=== PATIENT | female | born 1980 | race Caucasian/White ===

== ENCOUNTER 2022-02-19 13:24 | Emergency (ER) | payer BC, SELFPAY ==
[2022-02-19 13:38] VITALS: BP 136/91; PULSE 98; RESP 18; TEMP 36.4; O2SAT 95; BMI 39.5
--- NOTE | 2022-02-19 14:01 | CRLHL7_ITS ---
For Patients: As a result of the Cures Act, medical imaging exams and procedure reports are released immediately into your electronic medical record. You may view this report before your referring provider. If you have questions, please contact your health care provider. Indication: Shortness of breath Comparison: None available. Technique: PA and lateral views of the chest Findings: There is mild central bronchial thickening without dense consolidation, effusion or pneumothorax. The cardiomediastinal silhouette is within normal limits. The bony thorax is grossly intact. Impression: Mild central bronchial thickening without dense consolidation. Dictated by Griffin Childress MD @ 02/19/2022 2:57:29 PM (Electronically Signed)
--- OUTSIDE RECORDS SUMMARY | 2022-02-19 14:23 | XMS_ITS | Encounter Summary ---
:1980 Author Organization [place] Address [address] [place] [address] Care Team Providers Name Role Phone Nelda Peña APRN AUTO INSPECTOR Primary Care Provider [phone] Jose Lopez OD Unavailable Jillian Dubois APRN AUTO INSPECTOR Unavailable [phone] Nawaf Morocho MD Unavailable Lottie Cedillo PA-C Unavailable Azeem Lindsey APRN AUTO INSPECTOR Unavailable [phone] Jillian Dubois ELECTRICAL EXPERIMENTAL MECHANIC AUTO INSPECTOR Unavailable [phone] Teodoro Joaquin MD Unavailable [phone] Nelda Peña APRN AUTO INSPECTOR Unavailable [phone] Reason for Visit Reason Onset Date Comments Refill Request 02/15/2022 insulin glargine (LA NTUS PEN) 100 UNIT/ML pen Encounter Details Date Type Department Care Team Description 02/15/2022 Refjose M [facility] Lottie Cedillo Refil l Request (insulin Endocrinology Clinic ERR[facility] glargine (LANTUS PEN) [address] 100 UNIT/ML pen) [address] [place], [place] [id number] [place] [address] [phone] Social History Tobacco Use Types Packs/Day Years Used Date Smoking Tobacco: Never Smokeless Tobacco: Never Alcohol Use Standard Drinks/Week Comments Yes 0 (1 standard drink = 0.6 oz pure alcoho l) Intimate Partner Violence Answer Date Recorded Within the last year, have you been afraid of your partner o r No 10/25/2020 ex-partner? Within the last year, have you been humiliated or emotionall y No 10/25/2020 abused in other ways by your partner or ex-partner? Within the last year, have you been kicked, hit, slapped, or No 10/25/2020 otherwise physically hurt by your partner or ex-partner? Within the last year, have you been raped or forced to have any No 10/25/2020 kind of sexual activity by your partner or ex-partner? Sex Assigned at Date Recorded Female 05/08/2020 12:57 PM HOME MAKER COVID-19 Exposure Response Date Recorded In the last 10 days, have you been in contact with No / Unsu re 02/08/2022 6:05 PM HOME MAKER someone who was confirmed or suspected to have Coronavirus/COVID-19? documented as of this encounter Miscellaneous Notes Telephone Encounter - Inocencia Marcano LPN - 02/15/2022 9:26 AM CST insulin glargine (LANTUS PEN) 100 UNIT/ML pen Last Written Prescription Date: 12/26/20 Last Fill Quantity: 45 ml, # refills: 3 Last Office Visit : 12/26/20 Future Office visit: 04/23/22 Routing refill request to provider for review/approval because: Insulin - refilled per clinic MAKER documented in this encounter Plan of Treatment Upcoming Encounters Date Type Specialty Care Team Description 04/04/2022 Office Visit child care center administrator Kaela Dubois APRN [facility] [address] [place] [address] (Wo rk) 04/23/2022 Virtual Visit Endocrinology Lottie Cedillo PA-C [address] [place] [address] (Wo rk) documented as of this encounter Visit Diagnoses Diagnosis Type 1 diabetes mellitus with complicati ons (H) documented in this encounter Additional Health Concerns Assessment Noted Time PHQ-9 Depression Total Score: 7 10/02/2021 2:13 PM CDT documented as of this encounter Care Teams Loop Tender Relationship Specialty Start Date End Date Nelda Peña, PCP - General Nurse Practitioner 02/02/18 ELECTRICAL EXPERIMENTAL MECHANIC [address] [place] [address] Jose Lopez, SHELL ARRIOLA Optometry 03/04/18 Jillian Dubois Nurse Practitioner Nurse Practitioner 08/17/18 SHAW Infante [facility] [address] [place] [address] Nawaf Morocho MD Dermatology 04/24/20 [facility] 516 [facility] [address] [place] [address] Lottie Cedillo, Assigned Endocrinology 06/14/20 PA-C Provider [address] [place] [address] Azeem Lindsey, Assigned Behavioral 06/18/20 [facility] Health Provider [address] [place] [address] Jillian Dubois Assigned OBGYN Provider 01/28/21 SHAW Infante AUTO INSPECTOR [facility] [address] [place] [address] Liz Kirkland, Assigned Surgical 10/27/21 MD Teodoro Provider [address] [place] [address] Nelda Peña, Assigned PCP 10/06/21 ELECTRICAL EXPERIMENTAL MECHANIC AUTO INSPECTOR [address] [facility] [address] [place] [address] documented as of this encounter
--- OUTSIDE RECORDS SUMMARY | 2022-02-19 14:23 | XMS_ITS | Encounter Summary ---
:1980 Author Organization [place] Address [address] [place] [address] Care Team Providers Name Role Phone Nelda Peña APRN CLOTHES MARKER Primary Care Provider [phone] Jose Lopez OD Unavailable Jillian Dubois APRN CLOTHES MARKER Unavailable [phone] Nawaf Morocho MD Unavailable Lottie Cedillo PA-C Unavailable Azeem Lindsey APRN CLOTHES MARKER Unavailable [phone] Jillian Dubois BOTTLED BEVERAGE INSPECTOR CLOTHES MARKER Unavailable [phone] Nawaf Morocho MD Unavailable Nelda Peña APRN CLOTHES MARKER Unavailable [phone] Reason for Visit Reason Comments Cyst Back of neck Keflex x 4 days not helping with swelling or pain Encounter Details Date Type Department Care Team Description 10/19/2021 Office Visit [employer] Gael Mccloud M D Infected sebaceous cyst (Primary Dx); Urgent Care [address] Neck muscle spasm [id number] [place] [address] [address] [place], [place] [id number] [phone] Social History Tobacco Use Types Packs/Day Years [...] at Date Recorded Female 05/08/2020 12:57 PM CARPET INSPECTOR COVID-19 Exposure Response Date Recorded In the last 10 days, have you been in contact with No / Unsu re 10/19/2021 11:50 AM CDT someone who was confirmed or suspected to have Coronavirus/COVID-19? documented as of this encounter Last Filed Vital Signs Vital Sign Reading Time Taken Comments Blood Pressure 130/80 10/19/2021 12:19 PM CDT Pulse 98 10/19/2021 12:19 PM CDT Temperature 37.6 ??C (99.6 ??F) 10/19/2021 12:19 PM CDT Respiratory Rate 16 10/19/2021 12:19 PM CDT Oxygen Saturation 98% 10/19/2021 12:19 PM CDT Inhaled Oxygen Concentration - - Weight 105.5 kg (232 lb 8 oz) 10/19/2021 12:19 PM CDT Height - - Body Mass Index 42.52 10/02/2021 1:29 PM CDT documented in this encounter Progress Notes Gael Mccloud MD - 10/19/2021 12:05 PM CDT SUBJECTIVE: Chief Complaint Patient presents with ??? Cyst Back of neck Keflex x 4 days not helping with swelling or pain Tamiko Méndez is a 40 year old female who presents with a chief complaint of cyst on back of neck. Seen in on 10/15 for neck abscess, RX Omnicef given. Patient is taking Advil and not helping. Patient states that is painful to move headache. Had similar neck infection before, did get this drained,was lower on neck. Was given Bactrim for treatment. Past Medical History: Diagnosis Date ??? Acne cystica ??? Adenomyosis ??? Asthma ??? Depression ??? Dysmenorrhea ??? H/O seasonal allergies ??? Type I (juvenile type) diabetes mellitus without mention of complication, not stated as uncontrolled 1982 age 10 months Current Outpatient Medications Medication Sig Dispense Refill ??? augmented betamethasone dipropionate (DIPROLENE-AF) 0.05 % external cream Apply topically 2 times daily Do not apply to face, groin, or armpits 50 g 1 ??? Calcium Carb-Cholecalciferol (CALCIUM 500+D PO) (Patient not taking: Reported on 10/15/2021) ??? cefdinir (OMNICEF) 300 MG capsule Take 1 capsule (300 mg) by mouth 2 times daily for 7 days 14 capsule 0 ??? cetirizine (ZYRTEC) 10 MG tablet Take 10 mg by mouth daily ??? citalopram (CELEXA) 40 MG tablet Take 1 tablet (40 mg) by mouth daily 90 tablet 3 ??? clindamycin (CLEOCIN T) 1 % external lotion Apply once daily to face 60 mL 11 ??? Continuous Blood Gluc Enterprise Analyst (FREESTYLE LEATHA 14 DAY READER) MARY 1 Application 5 times daily 1 Device 1 ??? Continuous Blood Gluc Sensor (FREESTYLE LEATHA 14 DAY SENSOR) MISC Change every 14 days. For additional refills, please schedule a follow-up appointment at [phone] 2 each 1 ??? Digestive Enzymes (PAPAYA AND ENZYMES PO) ??? fluconazole (DIFLUCAN) 150 MG tablet (Patient not taking: No sig reported) ??? Injection Device for insulin (INPEN [id number]) MARY 2 each 4 times daily (before meals and nightly) 2 each 0 ??? Injection Device for insulin (INPEN [id number]) MARY 1 each 4 times daily (before meals and nightly) 2 each 0 ??? insulin aspart (FIASP FLEXTOUCH) 100 UNIT/ML pen-injector Inject 1-15 Units Subcutaneous 4 timesdaily MDD 55 units 30 mL 4 ??? insulin glargine (LANTUS PEN) 100 UNIT/ML pen Inject 46 Units Subcutaneous At Bedtime 45 mL 3 ??? insulin lispro (HUMALOG VIAL) 100 UNIT/ML vial Inject 20 Units Subcutaneous 3 times daily (before meals) for 90 days 54 mL 0 ??? insulin syringe 31G X 5/16 0.5 ML MISC 1 Application 4 times daily (before meals and nightly) 90 each 3 ??? lisinopril (ZESTRIL) 5 MG tablet Take 1 tablet (5 mg) by mouth daily 90 tablet 3 ??? multivitamin w/minerals (THERA-VIT-M) tablet Take 1 tablet by mouth daily (Patient not taking: No sig reported) ??? norethindrone (AYGESTIN) 5 MG tablet Take 1 tablet (5 mg) by mouth daily 90 tablet 3 ??? OMEPRAZOLE PO ??? propranolol (INDERAL) 10 MG tablet Take 1-2 tablets (10-20 mg) by mouth 2 times daily as needed (anxiety/agitation) 120 tablet 0 ??? spironolactone (ALDACTONE) 100 MG tablet Take 1 tablet (100 mg) by mouth daily 30 tablet 11 Social History Tobacco Use ??? Smoking status: Never Smoker ??? Smokeless tobacco: Never Used Substance Use Topics ??? Alcohol use: Yes ROS: Review of systems negative except as stated above. EXAM: BP 130/80 (BP Location: Right arm, Patient Position: Chair, Cuff Size: Adult Large) Pulse 98 Temp 99.6 ??F (37.6 ??C) (Oral) Resp 16 Wt 105.5 kg (232 lb 8 oz) SpO2 98% No BMI 42.52 kg/m?? GENERAL APPEARANCE: healthy, alert and no distress NECK: bilateral muscle tightness trapezius, old healed linear excision SKIN: base of scalp with firm, indurated cyst, no fluctuance with mild tenderness and redness PSYCH: alert, affect bright ASSESSMENT/PLAN: (L72.3, L08.9) Infected sebaceous cyst (primary encounter diagnosis) Comment: base of scalp Plan: sulfamethoxazole-trimethoprim (BACTRIM DS) 800-160 MG tablet (M62.838) Neck muscle spasm Plan: cyclobenzaprine (FLEXERIL) 5 MG tablet Okay to stop Omnicef in 1-2 days, new RX Bactrim DS given for treatment for infected cyst. Discussedthat due to firmness that most likely is in tissue and I&D would not be appropriate. Reviewed that obtaining cyst removal by dermatology recommended when infection clears. Okay to continue with tylenol, ibuprofen. RX flexeril given to help with neck muscle spasm. Follow up with primary provider if no improvement of symptoms in 1 week Gael Mccloud MD October 19, 2021 12:59 PM documented in this encounter Plan of Treatment Upcoming Encounters Date Type Specialty Care Team Description 04/04/2022 Office Visit radio sportscaster Kaela Dubois APRN [facility] [address] [place], [place] [address] (Wo rk) 04/23/2022 Virtual Visit Endocrinology Lottie Cedillo PA-C [address] [place] [address] (Wo rk) documented as of this encounter Visit Diagnoses Diagnosis Infected sebaceous cyst - Primary Sebaceous cyst Neck muscle spasm Spasm of muscle documented in this encounter Additional Health Concerns Assessment Noted Time PHQ-9 Depression Total Score: 7 10/02/2021 2:13 PM CDT documented as of this encounter Care Teams Roller Maker Relationship Specialty Start Date End Date Nelda Peña, PCP - General Nurse Practitioner 02/02/18 BOTTLED BEVERAGE INSPECTOR CLOTHES MARKER 420 [facility] [address] [place], [place] [address] Jose Lopez OD MD Optometry 03/04/18 Jillian Dubois Nurse Practitioner Nurse Practitioner 08/17/18 SHAW Infante [facility] [address] [place] [address] Nawaf Morocho MD Dermatology 04/24/[address] [id number] Lottie Cedillo, Assigned Endocrinology 06/14/20 PA-C Provider [address] [place], [place] [phone] Azeem Lindsey, Assigned Behavioral 06/18/20 BOTTLED BEVERAGE INSPECTOR [facility] Provider [address] [place], [place] [phone] Jillian Dubois Assigned OBGYN Provider 01/28/21 SHAW Infante [facility] [address] [place] [id number] Nawaf Morocho, Assigned Surgical 04/29/[address] [id number] Nelda Peña, Assigned PCP 10/06/21 BOTTLED BEVERAGE INSPECTOR [address] [place], [place] [address] documented as of this encounter
--- OUTSIDE RECORDS SUMMARY | 2022-02-19 14:23 | XMS_ITS | Encounter Summary ---
:1980 Author Organization [place] Address [facility] [place] [address] Care Team Providers Name Role Phone Nelda Peña APRN BLEACH SUPERVISOR Primary Care Provider Jose Lopez OD Unavailable Jillian Dubois APRN BLEACH SUPERVISOR Unavailable [phone] Nawaf Morocho MD Unavailable Lottie Cedillo-C Unavailable Azeem Lindsey APRN BLEACH SUPERVISOR Unavailable [phone] Jillian Dubois APRN BLEACH SUPERVISOR Unavailable [phone] Teodoro Joaquin MD Unavailable [phone] Nelda Peña APRN BLEACH SUPERVISOR Unavailable [phone] Reason for Visit Reason Onset Date Comments Appointment 02/19/2022 Encounter Details Date Type Department Care Team Description 02/19/2022 Telephone [facility] Nelda Peña APRN Appointment Internal Medicine BLEACH SUPERVISOR [address] [place] [address] [place], [place] [address] [phone] Social History Tobacco Use Types Packs/Day Years [...] at Date Recorded Female 05/08/2020 12:57 PM MINING ANALYST COVID-19 Exposure Response Date Recorded In the last 10 days, have you been in contact with No / Unsu re 02/08/2022 6:05 PM MINING ANALYST someone who was confirmed or suspected to have Coronavirus/COVID-19? documented as of this encounter Miscellaneous Notes Telephone Encounter - Tamiko Ordonez - 02/19/2022 9:45 AM CST Reason for Call: Appointment Request Patient requesting this type of appt: Follow-up bronchitis and uri wants chest xray Requested provider: any Reason patient unable to be scheduled: Not within requested timeframe When does patient want to be seen/preferred time: Same day Comments: patient wondering if she could be worked in today Could we send this information to you in RocketOn or would you prefer to receive a phone call?: Patient would like to be contacted via RocketOn Call taken on 02/19/2022 at 9:46 AM by Tamiko Ordonez NG ANALYST documented in this encounter Plan of Treatment Upcoming Encounters Date Type Specialty Care Team Description 04/04/2022 Office Visit oem sales manager Kaela Dubois APRN [facility] [address] [place] [address] (Wo rk) 04/23/2022 Virtual Visit Endocrinology Lottie Cedillo , PA-C [address] [place] [address] (Wo rk) documented as of this encounter Visit Diagnoses Not on filedocumented in this encounter Additional Health Concerns Assessment Noted Time PHQ-9 Depression Total Score: 7 10/02/2021 2:13 PM CDT documented as of this encounter Care Teams Machine Programmer Relationship Specialty Start Date End Date Nelda Peña, PCP - General Nurse Practitioner 02/02/18 SAP ABAP DEVELOPER [address] [place] [address] Jose Lopez, SHELL ARRIOLA Optometry 03/04/18 Jillian Dubois Nurse Practitioner Nurse Practitioner 08/17/18 SHAW Infante [facility] [address] [place] [address] Nawaf Morocho MD Dermatology 04/24/20 [facility] 516 [facility] EMERGENC[facility] DEPARTMENT [address] [place] [address] Lottie Cedillo, Assigned Endocrinology 06/14/20 PA-C Provider [address] [place] [address] Azeem Lindsey, Assigned Behavioral 06/18/20 [facility] Health Provider [address] [place] [address] Jillian Dubois Assigned OBGYN Provider 01/28/21 SHAW Infante BLEACH SUPERVISOR [facility] [address] [place] [address] Liz Kirkland, Assigned Surgical 10/27/21 MD Teodoro Provider [address] [facility] [place] [address] Nelda Peña, Assigned PCP 10/06/21 SAP ABAP DEVELOPER BLEACH SUPERVISOR [address] [facility] [address] [place] [address] documented as of this encounter
--- OUTSIDE RECORDS SUMMARY | 2022-02-19 14:23 | XMS_ITS | Encounter Summary ---
:1980 Author Organization [place] Address [facility] [place] [address] Care Team Providers Name Role Phone Nelda Peña APRN [facility] Primary Care Provider [phone] Jose Lopez OD Unavailable Jillian Dubois APRN ENGINEERING DESIGN MANAGER Unavailable [phone] Nawaf Morocho MD Unavailable Lottie Cedillo-Robert Unavailable Azeem Lindsey APRN ENGINEERING DESIGN MANAGER Unavailable [phone] Jillian Dubois APPEALS OFFICER ENGINEERING DESIGN MANAGER Unavailable [phone] Teodoro Joaquin MD Unavailable [phone] Nelda Peña APRN ENGINEERING DESIGN MANAGER Unavailable [phone] Encounter Details Date Type Department Care Team Description 01/19/2022 Travel Social History Tobacco Use Types Packs/Day Years [...] at Date Recorded Female 05/08/2020 12:57 PM TOPOGRAPHICAL DRAFTER COVID-19 Exposure Response Date Recorded In the last 10 days, have you been in contact No / Unsure 01/19/2022 11:41 AM CDT with someone who was confirmed or suspected to have Coronavirus/COVID-19? documented as of this encounter Plan of Treatment Upcoming Encounters Date Type Specialty Care Team Description 04/04/2022 Office Visit chief airport guide Kaela Dubois APRN ENGINEERING DESIGN MANAGER [facility] [address] [place], [place] [address] (Wo rk) 04/23/2022 Virtual Visit Endocrinology Lottie Cedillo , LUIS CARLOSC [address] [place], [place] [address] (Wo rk) documented as of this encounter Visit Diagnoses Not on filedocumented in this encounter Additional Health Concerns Assessment Noted Time PHQ-9 Depression Total Score: 7 10/02/2021 2:13 PM CDT documented as of this encounter Care Teams Vamp Creaser Relationship Specialty Start Date End Date Nelda Peña, PCP - General Nurse Practitioner 02/02/18 APPEALS OFFICER ENGINEERING DESIGN MANAGER 420 [facility] [address] [place] [address] Jose Lopez OD MD Optometry 03/04/18 Jillian Dubois Nurse Practitioner Nurse Practitioner 08/17/18 SHAW Infante [facility] [address] [place] [id number] Nawaf Morocho MD Dermatology 04/24/20 [facility] 516 [facility] 98 [place], [place] [address] Lottie Cedillo, Assigned Endocrinology 06/14/20 PA-C Provider [address] [place], [place] [phone] Azeem Lindsey, Assigned Behavioral 06/18/20 [facility] Provider [address] [place], [place] [phone] Jillian Dubois Assigned OBGYN Provider 01/28/21 SHAW Infante [facility] [address] [place] [phone] Liz Kirkland, Assigned Surgical 10/27/21 MD Teodoro Provider [address] [place] [address] Nelda Peña, Assigned PCP 10/06/[address] [place], [place] [address] documented as of this encounter
--- OUTSIDE RECORDS SUMMARY | 2022-02-19 14:23 | XMS_ITS | Encounter Summary ---
:1980 Author Organization [place] Address [facility] [place] [address] Care Team Providers Name Role Phone Nelda Peña APRN TOOL ROOM MACHINIST Primary Care Provider Jose Lopez OD Unavailable Jillian Dubois APRN TOOL ROOM MACHINIST Unavailable [phone] Nawaf Morocho MD Unavailable Lottie Cedillo-C Unavailable Azeem Lindsey APRN TOOL ROOM MACHINIST Unavailable [phone] Jillian Dubois APRN TOOL ROOM MACHINIST Unavailable [phone] Nawaf Morocho MD Unavailable Nelda Peña APRN TOOL ROOM MACHINIST Unavailable [phone] Reason for Visit Reason Onset Date Comments Appointment 10/26/2021 Checkout 04/25/21 Encounter Details Date Type Department Care Team Description 10/26/2021 Telephone [facility] Nawaf Morocho ent (Checkout Dermatology Clinic MD Jay 04/25/21) [address] Floor [address] [place] [address] [phone] (Maryjane pa) Social History Tobacco Use Types Packs/Day Years [...] at Date Recorded Female 05/08/2020 12:57 PM CLOTH WEAVER COVID-19 Exposure Response Date Recorded In the last 10 days, have you been in contact with No / Unsu re 10/19/2021 11:50 AM CDT someone who was confirmed or suspected to have Coronavirus/COVID-19? documented as of this encounter Miscellaneous Notes Telephone Encounter - Erna Samson - 10/26/2021 11:22 AM CDT 2nd attempted call to patient to schedule follow up in the Dermatology Clinic per ??Rashawn??last visit on 04/25/21 checkout comment dispositions. Left message with clinic number. Schedule follow up in [address] Morocho. documented in this encounter Plan of Treatment Upcoming Encounters Date Type Specialty Care Team Description 04/04/2022 Office Visit gear hobber set up operator Kaela Dubois APRN [facility] [address] [place] [address] (Maryjane pa) 04/23/2022 Virtual Visit Endocrinology Lottie Cedillo , ERROL [address] [place], [place] [phone] (Wo rk) documented as of this encounter Visit Diagnoses Not on filedocumented in this encounter Additional Health Concerns Assessment Noted Time PHQ-9 Depression Total Score: 7 10/02/2021 2:13 PM CDT documented as of this encounter Care Teams Marketing Summer Intern Relationship Specialty Start Date End Date Nelda Peña, PCP - General Nurse Practitioner 02/02/18 [facility] 420 [facility] [address] [place] [address] Jose Lopez, OD MD Optometry 03/04/18 Jillian Dubois Nurse Practitioner Nurse Practitioner 08/17/18 SHAW Infante [facility] [address] [place] [address] Nawaf Morocho MD Dermatology 04/24/20 [facility] 516 [facility] EMERGENC[facility] DEPARTMENT [address] [place], [place] [address] Lottie Cedillo, Assigned Endocrinology 06/14/20 PA-C Provider [address] [place] [address] Azeem Lindsey, Assigned Behavioral 06/18/20 [facility] Health Provider [address] [place], [place] [address] Jillian Dubois Assigned OBGYN Provider 01/28/21 SHAW Infante [facility] [address] [place] [address] Nawaf Morocho, Assigned Surgical 04/29/21 MD Provider [facility] 516 [facility] [address] [place] [address] Nelda Peña, Assigned PCP 10/06/21 STRIPPING MACHINE OPERATOR TOOL ROOM MACHINIST 420 [facility] [address] [place] [address] documented as of this encounter
--- OUTSIDE RECORDS SUMMARY | 2022-02-19 14:23 | XMS_ITS | Encounter Summary ---
:1980 Author Organization [place] Address [facility] [place] [address] Care Team Providers Name Role Phone Nelda Peña APRN [facility] ATTENDANT Primary Care Provider [phone] Jose Lopez OD Unavailable Jillian Dubois APRN [facility] ATTENDANT Unavailable [phone] Nawaf Morocho MD Unavailable Lottie Cedillo-Robert Unavailable Azeem Lindsey APRN [facility] ATTENDANT Unavailable [phone] Jillian Dubois APRN [facility] ATTENDANT Unavailable [phone] Teodoro Joaquin MD Unavailable [phone] Nelda Peña APRN [facility] ATTENDANT Unavailable [phone] Reason for Visit Reason Comments Medication Refill FREESTYLE LEATHA SENSOR 14D K IT Encounter Details Date Type Department Care Team Description 11/30/2021 Refill [facility] Nelda Peña, [facility] ication Refill Clinic Internal COMMUNICATION EQUIPMENT MECHANIC [facility] ATTENDANT (FREESTYLE LEATHA SENSOR [address] 14D KIT) 909 [facility] [address] [place] [address] [place], [place] [phone] (Wo rk) [address] [phone] Social History Tobacco Use Types Packs/Day Years [...] at Date Recorded Female 05/08/2020 12:57 PM PHARMACOLOGIST documented as of this encounter Miscellaneous Notes Telephone Encounter - Sarah Arauz RN - 12/05/2021 2:25 PM CDT VASQUEZ[employer] SENSOR 14D KIT Last Written Prescription Date: 10/02/2021 Last Fill Quantity: 2, # refills: 1 Last Office Visit : 10/02/2021 Future Office visit: None 2 each, 6 Refills sent to pharm for Pt care. Sarah Arauz RN Central Triage Red Flags/Med Refills documented in this encounter Plan of Treatment Upcoming Encounters Date Type Specialty Care Team Description 04/04/2022 Office Visit database consultant Kaela Dubois APRN [facility] [address] [place] [address] (Wo rk) 04/23/2022 Virtual Visit Endocrinology Lottie Cedillo PA-C [address] [place], [place] [address] (Wo rk) documented as of this encounter Visit Diagnoses Diagnosis Type 1 diabetes mellitus with complicati ons (H) documented in this encounter Additional Health Concerns Assessment Noted Time PHQ-9 Depression Total Score: 7 10/02/2021 2:13 PM CDT documented as of this encounter Care Teams [employer] Teacher Relationship Specialty Start Date End Date Nelda Peña, PCP - General Nurse Practitioner 02/02/[address] [place], [place] [address] Jose Lopez OD MD Optometry 03/04/18 Jillian Dubois Nurse Practitioner Nurse Practitioner 08/17/18 SHAW Infante [facility] [address] [place] [phone] Nawaf Morocho MD Dermatology 04/24/20 [facility] 516 [facility] 98 [place], [place] [address] Lottie Cedillo, Assigned Endocrinology 06/14/20 PANael Provider [address] [place], [place] [phone] Azeem Lindsey, Assigned Behavioral 06/18/20 [facility] Health Provider [address] [place], [place] [address] Jillian Dubois Assigned OBGYN Provider 01/28/21 SHAW Infante [facility] [address] [place] [address] [id number] Liz Kirkland, Assigned Surgical 10/27/21 MD Teodoro Provider 909 [facility] [place] [address] Nelda Peña, Assigned PCP 10/06/21 COMMUNICATION EQUIPMENT MECHANIC [facility] ATTENDANT 420 [facility] 741 [place] [address] documented as of this encounter
--- OUTSIDE RECORDS SUMMARY | 2022-02-19 14:23 | XMS_ITS | Encounter Summary ---
:1980 Author Organization [place] Address [facility] [place] [address] Care Team Providers Name Role Phone Nelda Peña APRN [facility] Primary Care Provider [phone] Jose Lopez OD Unavailable Jillian Dubois APRN BINDERY CUTTER OPERATOR Unavailable [phone] Nawaf Morocho MD Unavailable Lottie Cedillo-Robert Unavailable Azeem Lindsey APRN BINDERY CUTTER OPERATOR Unavailable [phone] Jillian Dubois SUPERVISOR CONCRETE STONE FABRICATING BINDERY CUTTER OPERATOR Unavailable [phone] Teodoro Joaquin MD Unavailable [phone] Nelda Peña APRN BINDERY CUTTER OPERATOR Unavailable [phone] Encounter Details Date Type Department Care Team Description 02/08/2022 Travel Social History Tobacco Use Types Packs/Day [...] at Date Recorded Female 05/08/2020 12:57 PM GLUING MACHINE OPERATOR COVID-19 Exposure Response Date Recorded In the last 10 days, have you been in contact with No / Unsu re 02/08/2022 6:05 PM GLUING MACHINE OPERATOR someone who was confirmed or suspected to have Coronavirus/COVID-19? documented as of this encounter Plan of Treatment Upcoming Encounters Date Type Specialty Care Team Description 04/04/2022 Office Visit elder counselor Kaela Dubois, SUPERVISOR CONCRETE STONE FABRICATING BINDERY CUTTER OPERATOR [facility] [address] [place], [place] [phone] (Wo rk) 04/23/2022 Virtual Visit Endocrinology Lottie Cedillo , ERROL 9[address] [place], [place] [address] (Wo rk) documented as of this encounter Visit Diagnoses Not on filedocumented in this encounter Additional Health Concerns Infection Onset Date Last Indicated Resolved Time Rule Out COVID-19 02/08/2022 02/08/2022 02/10/2022 1:3 0 PM GLUING MACHINE OPERATOR Assessment Noted Time PHQ-9 Depression Total Score: 7 10/02/2021 2:13 PM CDT documented as of this encounter Care Teams Flame Cutting Supervisor Relationship Specialty Start Date End Date Nelda Peña, PCP - General Nurse Practitioner 02/02/18 SUPERVISOR CONCRETE STONE FABRICATING BINDERY CUTTER OPERATOR 420 [facility] 741 [place] [address] Jose Lopez OD MD Optometry 03/04/18 Jillian Dubois Nurse Practitioner Nurse Practitioner 08/17/18 SHAW Infante [facility] [address] [place] [phone] Nawaf Morocho MD Dermatology 04/24/20 [facility] 516 [facility] 98 [place] [address] Lottie Cedillo, Assigned Endocrinology 06/14/20 PA-C Provider [address] [place] [address] Azeem Lindsey, Assigned Behavioral 06/18/20 [facility] Provider [address] [place] [address] Jillian Dubois Assigned OBGYN Provider 01/28/21 SHAW Infante [facility] [address] [place] [address] Liz Kirkland, Assigned Surgical 10/27/21 MD Teodoro Provider [address] [place] [address] Nelda Peña, Assigned PCP 10/06/21 SUPERVISOR CONCRETE STONE FABRICATING [address] [place] [address] documented as of this encounter
--- OUTSIDE RECORDS SUMMARY | 2022-02-19 14:23 | XMS_ITS | Encounter Summary ---
:1980 Author Organization [place] Address [address] [place] [address] Care Team Providers Name Role Phone Nelda Peña APRN SPOUT LINER HELPER Primary Care Provider [phone] Jose Lopez OD Unavailable Jillian Dubois APRN SPOUT LINER HELPER Unavailable [phone] Nawaf Morocho MD Unavailable Lottie Cedillo-C Unavailable Azeem Lindsey APRN SPOUT LINER HELPER Unavailable [phone] Jillian Dubois MAIL DISTRIBUTION CLERK SPOUT LINER HELPER Unavailable [phone] Teodoro Joaquin MD Unavailable [phone] Nelda Peña APRN SPOUT LINER HELPER Unavailable [phone] Reason for Visit Reason Comments Urgent Care Cough, and sore throat which started 01/19/22, pt was diagnosed bronchitis 01/19/22 and the cough still there. Encounter Details Date Type Department Care Team Description 02/08/[address] [facility] hSae Rayo (Primary Dx); Urgent Care Thi Roy NP Acute cough; [address] Throat pain; [place], [place], [place] Mild intermit tent asthma with acute exacerbation; [id number] Type 1 diabetes mellitus with complicati ons (H) [phone] Social History Tobacco Use Types Packs/Day Years [...] at Date Recorded Female 05/08/2020 12:57 PM EMR SPECIALIST COVID-19 Exposure Response Date Recorded In the last 10 days, have you been in contact with No / Unsu re 02/08/2022 6:05 PM EMR SPECIALIST someone who was confirmed or suspected to have Coronavirus/COVID-19? documented as of this encounter Last Filed Vital Signs Vital Sign Reading Time Taken Comments Blood Pressure 120/81 02/08/2022 6:29 PM EMR SPECIALIST Pulse 89 02/08/2022 6:29 PM EMR SPECIALIST Temperature 36.7 ??C (98.1 ??F) 02/08/2022 6:29 PM EMR SPECIALIST Respiratory Rate - - Oxygen Saturation 97% 02/08/2022 6:29 PM EMR SPECIALIST Inhaled Oxygen Concentration - - Weight - - Height - - Body Mass Index - - documented in this encounter Progress Notes Shae Rayo CIVIL ENGINEER - 02/08/2022 6:05 PM CST Chief Complaint Patient presents with ??? Urgent Care Cough, and sore throat which started 01/19/22, pt was diagnosed bronchitis 01/19/22 and the cough still there. SUBJECTIVE: Tamiko Méndez is a 41 year old female presenting with cough mucus sinus pressure congestion postnasal drip sore throat lymph nodes fatigue for a month. She completed albuterol Augmentin codeine cough syrup and prednisone recently with a lingering symptoms. Declines any chest pain severe shortness of breath hemoptysis. She does have asthma and diabetes. Past Medical History: Diagnosis Date ??? Acne cystica ??? Adenomyosis ??? Asthma ??? Depression ??? Dysmenorrhea ??? H/O seasonal allergies ??? Type I (juvenile type) diabetes mellitus without mention of complication, not stated as uncontrolled 1982 age 10 months albuterol (PROAIR HFA/PROVENTIL HFA/VENTOLIN HFA) 108 (90 Base) MCG/ACT inhaler, Inhale 2 puffs intothe lungs every 6 hours augmented betamethasone dipropionate (DIPROLENE-AF) 0.05 % external cream, Apply topically 2 times daily Do not apply to face, groin, or armpits Calcium Carb-Cholecalciferol (CALCIUM 500+D PO), cetirizine (ZYRTEC) 10 MG tablet, Take 10 mg by mouth daily citalopram (CELEXA) 40 MG tablet, Take 1 tablet (40 mg) by mouth daily clindamycin (CLEOCIN T) 1 % external lotion, Apply once daily to face Continuous Blood Gluc [employer] Vendor (FREESTYLE LEATHA 14 DAY READER) MARY, 1 Application 5 times daily Continuous Blood Gluc Sensor (FREESTYLE LEATHA 14 DAY SENSOR) [facility], Change every 14 days. cyclobenzaprine (FLEXERIL) 5 MG tablet, Take 1-2 tablets (5-10 mg) by mouth 3 times daily as needed for muscle spasms Digestive Enzymes (PAPAYA AND ENZYMES PO), fluconazole (DIFLUCAN) 150 MG tablet, guaiFENesin-codeine (ROBITUSSIN AC) 100-10 MG/5ML solution, Take 5-10 mLs by mouth nightly as neededfor cough Injection Device for insulin (INPEN [id number]) MARY, 2 each 4 times daily (before meals and nightly) Injection Device for insulin (INPEN [id number]) MARY, 1 each 4 times daily (before meals and nightly) insulin aspart (FIASP FLEXTOUCH) 100 UNIT/ML pen-injector, Inject 1-15 Units Subcutaneous 4 times daily MDD 55 units insulin glargine (LANTUS PEN) 100 UNIT/ML pen, Inject 46 Units Subcutaneous At Bedtime insulin lispro (HUMALOG VIAL) 100 UNIT/ML vial, Inject 20 Units Subcutaneous 3 times daily (before meals) insulin syringe 31G X 5/16 0.5 ML MISC, 1 Application 4 times daily (before meals and nightly) lisinopril (ZESTRIL) 5 MG tablet, Take 1 tablet (5 mg) by mouth daily multivitamin w/minerals (THERA-VIT-M) tablet, Take 1 tablet by mouth daily norethindrone (AYGESTIN) 5 MG tablet, Take 1 tablet (5 mg) by mouth daily OMEPRAZOLE PO, predniSONE (DELTASONE) 20 MG tablet, Take 1 tablet (20 mg) by mouth 2 times daily propranolol (INDERAL) 10 MG tablet, Take 1-2 tablets (10-20 mg) by mouth 2 times daily as needed (anxiety/agitation) spironolactone (ALDACTONE) 100 MG tablet, Take 1 tablet (100 mg) by mouth daily LORazepam (ATIVAN) tablet 1 mg Social History Tobacco Use ??? Smoking status: Never ??? Smokeless tobacco: Never Substance Use Topics ??? Alcohol use: Yes Allergies Allergen Reactions ? ? Hay Fever & [A.R.M.] Stuffiness, watery eyes ??? No Clinical Screening - See Comments Unknown Other reaction(s): *Unknown Review of Systems All systems negative except for those listed above in HPI. OBJECTIVE: BP 120/81 (BP Location: Right arm, Patient Position: Sitting, Cuff Size: Adult Large) Pulse 89 Temp 98.1 ??F (36.7 ??C) (Oral) SpO2 97% Physical Exam Vitals reviewed. Constitutional: General: She is not in acute distress. Appearance: Normal appearance. She is well-developed and well-nourished. She is ill-appearing. She is not toxic-appearing or diaphoretic. HENT: Head: Normocephalic and atraumatic. Right Ear: Tympanic membrane and ear canal normal. Left Ear: Tympanic membrane and ear canal normal. Nose: Congestion and rhinorrhea present. Mouth/Throat: Pharynx: No oropharyngeal exudate or posterior oropharyngeal erythema. Eyes: Extraocular Movements: EOM normal. Conjunctiva/sclera: Conjunctivae normal. Pupils: Pupils are equal, round, and reactive to light. Cardiovascular: Rate and Rhythm: Normal rate. Pulses: Normal pulses and intact distal pulses. Pulmonary: Effort: Respiratory distress present. Breath sounds: Normal breath sounds. No stridor. No wheezing, rhonchi or rales. Chest: Chest wall: No tenderness. Musculoskeletal: General: Normal range of motion. Cervical back: Normal range of motion and neck supple. Lymphadenopathy: Cervical: Cervical adenopathy present. Skin: General: Skin is warm. Capillary Refill: Capillary refill takes less than 2 seconds. Findings: No rash. Neurological: General: No focal deficit present. Mental Status: She is alert and oriented to person, place, and time. Psychiatric: Mood and Affect: Mood normal. Behavior: Behavior normal. Results for orders placed or performed in visit on 02/08/22 Streptococcus A Rapid Screen w/Reflex to PCR Status: Normal Specimen: Throat; Swab Result Value Ref Range Group A Strep antigen Negative Negative ASSESSMENT: ICD-10-CM 1. Sinobronchitis J32.9 doxycycline hyclate (VIBRAMYCIN) 100 MG capsule J40 benzonatate (TESSALON) 200 MG capsule 2. Acute cough R05.1 Symptomatic; Unknown COVID-19 Virus (Coronavirus) by PCR Nose 3. Throat pain R07.0 Symptomatic; Unknown COVID-19 Virus (Coronavirus) by PCR Nose Streptococcus A Rapid Screen w/Reflex to PCR Group A Streptococcus PCR Throat Swab 4. Mild intermittent asthma with acute exacerbation J45.21 5. 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) E10.8 PLAN: Doxy and Tessalon Perles for sinobronchitis lingering Lungs clear except for wheeze vitals stable Home albuterol Offered CBC x-ray but patient prefers empiric treatment at this time Rest! Your body needs more rest to heal. Drink plenty of fluids (warm fluids like tea or soup are soothing and reduce cough) Sit in the bathroom with a hot shower running and breathe in the steam. Honey may soothe your sore throat and help manage your cough- may take straight or in warm water with lemon juice. Monitor blood sugars while sick, would hold on repeat prednisone as this can increase sugars Avoid smoke (cigarettes, bonfires, fireplace, wood burning stoves). Take Tylenol or an NSAID such as ibuprofen or naproxen as needed for pain. Delsym (dextromethorphan polistirex) is an over the counter cough medication that lasts 12 hours. Mucinex or Robitussin (guiafenesin) thin mucus and may help it to loosen more quickly Good handwashing is the best way to prevent spread of germs Present to emergency room if you develop trouble breathing, swallowing or cough- up blood. Follow up with your primary care provider if symptoms worsen or fail to improve as expected. Follow up with primary care provider with any problems, questions or concerns or if symptoms worsen or fail to improve. Patient agreed to plan and verbalized understanding. JOLENE العراقي [facility] SPECIALIST documented in this encounter Plan of Treatment Upcoming Encounters Date Type Specialty Care Team Description 04/04/2022 Office Visit office administrative assistant aKela Dubois APRN [facility] [address] [place] [address] (Wo rk) 04/23/2022 Virtual Visit Endocrinology Lottie Cedillo PA-C [address] [place], [place] [address] (Wo rk) documented as of this encounter Procedures Procedure Name Priority Date/Time Associated Comments Diagnosis COVID-19 VIRUS Routine 02/08/2022 6:34 PM Acute cough Results for this (CORONAVIRUS) BY PCR EMR SPECIALIST Throat pain procedu re are in the results section. STREPTOCOCCUS A RAPID Routine 02/08/2022 6:34 PM Throat pain Results for this SCREEN W REFELX TO PCR EMR SPECIALIST proce dure are in the results section. GROUP A STREPTOCOCCUS Routine 02/08/2022 6:34 PM Throat pain Results for this PCR THROAT SWAB EMR SPECIALIST procedure ar e in the results section. documented in this encounter Results Group A Streptococcus PCR Throat Swab (02/08/2022 6:34 PM EMR SPECIALIST) Patholo gist Method Time Signature Group A strep Not Detected Not Detected 02/09/2022 [facility] by PCR 7:28 PM EMR SPECIALIST LABORATORY Specimen Anatomical Collection Method Collection Time Receive d Time (Source) Location / / Volume Laterality Swab STRUCTURE OF Non-blood 02/08/2022 6:34 PM 2 6:46 ANTERIOR PORTION Collection / EMR SPECIALIST PM EMR SPECIALIST OF NECK / Unknown Unknown Narrative [facility] - 02/09/2022 7:[address] The Xpert Xpress Strep A test, performed on the [employer]?? Instrument Systems, is a rapid, qualitative in vitro diagnostic t est for the detection of Streptococcus pyogenes (Group A ? - hemolytic Streptococcus, Strep A) in thr oat swab specimens from patients with signs and symptoms of pharyngitis. The Xpert X press Strep A test can be used as an aid in the diagnosis of Group A Streptococcal p haryngitis. The assay is not intended to monitor treatment for Group A Streptococ cus infections. The Xpert Xpress Strep A test utilizes an automated real-time polymera se chain reaction (PCR) to detect Streptococcus pyogenes DNA. Rachele ALDRIDGEC LAB - MICRO GENERAL ORDERABL ES Performing Organization Address City/State/ZIP Code Phon e Number [facility] LABORATORY [facility] [place] [id number] Diag. Lab [address] [facility], Room [address]297 Streptococcus A Rapid Screen w/Reflex to PCR (02/08/2022 6:34 PM EMR SPECIALIST) Analysis Performed At Patho logist Time Signature Group A Strep Negative Negative 02/08/2022 [facility] antigen 6:46 PM EMR SPECIALIST Specimen Anatomical Collection Method Collection Time Receive d Time (Source) Location / / Volume Laterality Swab STRUCTURE OF Non-blood 02/08/2022 6:34 PM 2 6:39 ANTERIOR PORTION Collection / EMR SPECIALIST PM EMR SPECIALIST OF NECK / Unknown Unknown Rachele Burris PA-C LAB - MICRO GENERAL ORDERABL ES Performing Organization Address City/State/ZIP Code Phon e Number [place] [address] Lab [address] [facility] Lab (no room number, 1st floor of clinic) [place] [address], Clinic - [facility] [address] [facility] Lab (no room number, 1st floor of clinic) Symptomatic; Unknown COVID-19 Virus (Coronavirus) by PCR Nose (02/08/2022 6:34 PM EMR SPECIALIST) Analysis Performed At Patho logist Time Signature SARS CoV2 PCR Negative Negative 02/10/2022 [facility] 1:30 PM EMR SPECIALIST LABORATORY Comment: NEGATIVE: SARS-CoV-2 (COVID-19) RNA not detected, presumed negative. Specimen Anatomical Collection Method Collection Time Receive d Time (Source) Location / / Volume Laterality Swab NASAL STRUCTURE / Non-blood 02/08/2022 6:34 PM 01/29 6:39 Unknown Collection / EMR SPECIALIST PM EMR SPECIALIST Unknown Narrative [facility] - 02/10/2022 1:[address] Testing was performed using the Aptima SARS-CoV-2 Assay on the [employer] Instrument System. Additional in formation about this Emergency Use Authorization (EUA) assay can be found via the Lab Guide. This test should be ordered for t he detection of SARS-CoV-2 in individuals who meet SARS-CoV-2 clinical and/or epidemiological criteria. Test performance is unknown in asymptomatic patients. This test is for in vitro diagnostic use unde r the FDA EUA for laboratories certified under CLIA to per form high complexity testing. This test has not been FDA cleared or ap proved. A negative result does not rule out the presence of PCR in hibitors in the specimen or target RNA in concentration below the li sampson of detection for the assay. The possibility of a false negati ve should be considered if the patient's recent exposure or clinica l presentation suggests COVID-19. This test was validated by the [facility]. This lab oratory is certified under the Clinical Laboratory Improvement Amen dments of 1987 (CLIA-88) as qualified to perform high complexity lab oratory testing. Rachele Burris PA-C LAB - MICRO GENERAL ORDERABL ES Performing Organization Address City/State/ZIP Code Phon e Number [facility] [place] [address] Diag. Lab [address] [facility], Room [address] documented in this encounter Visit Diagnoses Diagnosis Sinobronchitis - Primary Unspecified sinusitis (chronic) Acute cough Throat pain Mild intermittent asthma with acute exac erbation Unspecified asthma, with exacerbation Type 1 diabetes mellitus with complicati ons (H) documented in this encounter Additional Health Concerns Assessment Noted Time PHQ-9 Depression Total Score: 7 10/02/2021 2:13 PM CDT documented as of this encounter Care Teams Press Reader Relationship Specialty Start Date End Date Nelda Peña, PCP - General Nurse Practitioner 02/02/[address] [place] [address] Jose Lopez, SHELL ARRI[place]A Optometry 03/04/18 Jillian Dubois Nurse Practitioner Nurse Practitioner 08/17/18 SHAW Infante [facility] [address] [place] [phone] Nawaf Morocho MD Dermatology 04/24/20 [facility] 516 [facility] 98 [place], [place] [phone] Lottie Cedillo, Assigned Endocrinology 06/14/20 PA-C Provider [address] [place] [address] Azeem Lindsey, Assigned Behavioral 06/18/20 [facility] Provider [address] [place] [address] Jillian Dubois Assigned OBGYN Provider 01/28/21 SHAW Infante [facility] [address] [place] [phone] Liz Kirkland, Assigned Surgical 10/27/21 MD Teodoro Provider [address] [place] [address] Nelda Peña, Assigned PCP 10/06/21 MAIL DISTRIBUTION CLERK SPOUT LINER HELPER 420 [facility] 741 [place] [address] documented as of this encounter
--- OUTSIDE RECORDS SUMMARY | 2022-02-19 14:23 | XMS_ITS | Encounter Summary ---
:1980 Author Organization [place] Address [address] [place] [address] Care Team Providers Name Role Phone Nelda Peña APRN METAL WEATHER STRIPPER Primary Care Provider [phone] Jose Lopez OD Unavailable Jillian Dubois APRN METAL WEATHER STRIPPER Unavailable [phone] Nawaf Morocho MD Unavailable Lottie Cedillo PA-C Unavailable Azeem Lindsey APRN METAL WEATHER STRIPPER Unavailable [phone] Jillian Dubois CRIME LABORATORY ANALYST METAL WEATHER STRIPPER Unavailable [phone] Teodoro Joaquin MD Unavailable [phone] Nelda Peña APRN METAL WEATHER STRIPPER Unavailable [phone] Reason for Visit Reason Onset Date Comments Medication Request 02/14/2022 Encounter Details Date Type Department Care Team Description 02/14/2022 Telephone [facility] Lottie Cedillo, Medic ation Request Endocrinology Clinic [facility] [address] [place], [place] [id number] [phone] Social History Tobacco Use Types Packs/Day Years [...] at Date Recorded Female 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 documented as of this encounter Miscellaneous Notes Telephone Encounter - Gayle Tovar - 02/14/2022 10:13 AM CST RTC 04/23/2022 with Lottie Cedillo. [facility] Phone Message May a detailed message be left on voicemail: yes Reason for Call: Medication Refill Request Has the patient contacted the pharmacy for the refill? Yes Name of medication being requested: Lantus Provider who prescribed the medication: Nguyen Pharmacy: [facility] in [place] Date medication is needed: MORIS patient states she is almost out of Lantus. Patient scheduled next available appt with Dr. Cedillo in 03/2022. Patient also wondering if labs can be ordered Action Taken: Other: [facility] Travel Screening: Not Applicable DESIGNER documented in this encounter Plan of Treatment Upcoming Encounters Date Type Specialty Care Team Description 04/04/2022 Office Visit trust officer Kaela Dubois APRN COUNT INCLUDES [facility] [address] [place] [address] (Wo rk) 04/23/2022 Virtual Visit Endocrinology Lottie Cedillo PA-C [address] [place] [address] (Wo rk) Scheduled Orders Name Type Priority Associated Diagnoses Order S chedule Hemoglobin A1c Lab Routine Type 1 diabetes mellitus E xpected: 02/15/2022 with complications (H) (Appr oximate), Expires: 2022 Comprehensive metabolic Lab Routine Type 1 diabetes m ellitus Expected: 02/15/2022 panel with complications (H) (Appr oximate), Expires: 2022 Albumin Random Urine Lab Routine Type 1 diabetes latisha itus Expected: 02/15/2022 Quantitative with Creat with complication s (H) (Approximate), Ratio Expires: 2022 Lipid panel reflex to Lab Routine Type 1 diabetes katherine litus Expected: 02/15/2022 direct LDL Fasting with complications (H) (Approximate), Expires: 2022 documented as of this encounter Visit Diagnoses Diagnosis Type 1 diabetes mellitus with complicati ons (H) documented in this encounter Additional Health Concerns Assessment Noted Time PHQ-9 Depression Total Score: 7 10/02/2021 2:13 PM CDT documented as of this encounter Care Teams Security Guard Supervisor Relationship Specialty Start Date End Date Nelda Peña PCP - General Nurse Practitioner 02/02/18 SHAW DIAZ [address] [facility] [address] [place] [address] Jose Lopez OD MD Optometry 03/04/18 Jillian Dubois Nurse Practitioner Nurse Practitioner 08/17/18 SHAW Infante COUNT INCLUDES [facility] [address] [place] [address] Nawaf Morocho MD Dermatology 04/24/20 [facility] 516 [facility] [address] [place] [address] Lottie Cedillo, Assigned Endocrinology 06/14/20 PA-C Provider [address] [place] [address] Azeem Lindsey, Assigned Behavioral 06/18/20 CRIME LABORATORY ANALYST [facility] Provider [address] [place] [address] Jillian Dubois Assigned OBGYN Provider 01/28/21 SHAW Infante [facility] [address] [place] [address] Liz Kirkland, Assigned Surgical 10/27/21 MD Teodoro Provider [address] [place] [address] Nelda Peña, Assigned PCP 10/06/21 CRIME LABORATORY ANALYST METAL WEATHER STRIPPER 420 [facility] [address] [place] [address] documented as of this encounter
--- OUTSIDE RECORDS SUMMARY | 2022-02-19 14:23 | XMS_ITS | Encounter Summary ---
:1980 Author Organization [place] Address [address] [facility] [place] [address] Care Team Providers Name Role Phone Nelda Peña APRN WRAPPER LEAF INSPECTOR Primary Care Provider [phone] Jose Lopez OD Unavailable Jillian Dubois APRN WRAPPER LEAF INSPECTOR Unavailable [phone] Nawaf Morocho MD Unavailable Lottie Cedillo-Robert Unavailable Azeem Lindsey APRN WRAPPER LEAF INSPECTOR Unavailable [phone] Jillian Dubois APRN WRAPPER LEAF INSPECTOR Unavailable [phone] Teodoro Joaquin MD Unavailable [phone] Nelda Peña APRN WRAPPER LEAF INSPECTOR Unavailable [phone] Reason for Visit Reason Onset Date Comments Refill Request 01/29/2022 Encounter Details Date Type Department Care Team Description 01/29/2022 Telephone [facility] Tammy Dubois Refill Request [facility] [place] SHAW Infante WRAPPER LEAF INSPECTOR [address] [facility] TS dg [facility] [address] [place] [address] [place], [place] [phone] Social History Tobacco Use Types Packs/Day Years [...] at Date Recorded Female 05/08/2020 12:57 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 documented as of this encounter Miscellaneous Notes Telephone Encounter - Marybeth Poon RN - 01/30/2022 10:11 AM CDT 90 day supply of control sent over for this patient. Her annual is scheduled for 04-04-21 with Jillian Dubois. Will let the patient know via Pi[employer]. Telephone Encounter - Janel Whaley - 01/29/2022 2:12 PM CDT [facility] Phone Message May a detailed message be left on voicemail: yes Reason for Call: Medication Refill Request Has the patient contacted the pharmacy for the refill? Yes Name of medication being requested: norethindrone (AYGESTIN) 5 MG tablet Provider who prescribed the medication: Jillian Dubois Pharmacy: [facility] [address] [place] [address] [place] [address] Date medication is needed: Richard Patient called and scheduled her Annual Exam for 04/04, next available was out until Next Year. Patient wanting to know if she can get a refill on her control until her appointment with [facility]. Please contact patient if she can or can't get a refill. Thank you Action Taken: Other: [facility] Travel Screening: Not Applicable documented in this encounter Plan of Treatment Upcoming Encounters Date Type Specialty Care Team Description 04/04/2022 Office Visit marine engineer cpvec Kaela Dubois APRN CNP [facility] [address] [place] [address] (Wo rk) 04/23/2022 Virtual Visit Endocrinology Lottie Cedillo PA-C [address] [place], [place] [address] (Wo rk) documented as of this encounter Visit Diagnoses Diagnosis Abnormal uterine bleeding (AUB) documented in this encounter Additional Health Concerns Assessment Noted Time PHQ-9 Depression Total Score: 7 10/02/2021 2:13 PM CDT documented as of this encounter Care Teams Chemical Production Engineer Relationship Specialty Start Date End Date Nelda Peña PCP - General Nurse Practitioner 02/02/18 SHAW WRAPPER LEAF INSPECTOR [address] [facility] [address] [place] [address] Jose Lopez OD MD Optometry 03/04/18 Jillian Dubois Nurse Practitioner Nurse Practitioner 08/17/18 SHAW Infante WRAPPER LEAF INSPECTOR [facility] [address] [place], [place] [address] [place] [address] Nawaf Morocho MD Dermatology 04/24/20 [facility] 516 [facility] 98 [place], [place] [phone] Lottie Cedillo, Assigned Endocrinology 06/14/20 PA-C Provider [address] [place] [address] Azeem Lindsey, Assigned Behavioral 06/18/20 PREVENTATIVE MAINTENANCE TECHNICIAN Critical access hospital Provider [address] [place] [address] Jillian Dubois Assigned OBGYN Provider 01/28/21 SHAW Infante [facility] [address] [place] [address] Liz Kirkland, Assigned Surgical 10/27/21 MD Teodoro Provider [address] [place] [address] Nelda Peña, Assigned PCP 10/06/21 PREVENTATIVE MAINTENANCE TECHNICIAN WRAPPER LEAF INSPECTOR 420 [facility] [address] [place], [place] [phone] documented as of this encounter
--- OUTSIDE RECORDS SUMMARY | 2022-02-19 14:23 | XMS_ITS | Encounter Summary ---
:1980 Author Organization [place] Address [facility] [place] [address] Care Team Providers Name Role Phone Nelda Peña APRN SHAMPOO ASSISTANT Primary Care Provider [phone] Jose Lopez OD Unavailable Jillian Dubois APRN SHAMPOO ASSISTANT Unavailable [phone] Nawaf Morocho MD Unavailable Lottie Cedillo-Robert Unavailable Azeem Lindsey APRN SHAMPOO ASSISTANT Unavailable [phone] Jillian Dubois APRN SHAMPOO ASSISTANT Unavailable [phone] Nawaf Morocho MD Unavailable Nelda Peña APRN SHAMPOO ASSISTANT Unavailable [phone] Encounter Details Date Type Department Care Team Description 10/15/2021 Travel Social History Tobacco Use Types Packs/Day [...] at Date Recorded Female 05/08/2020 12:57 PM REVERSER COVID-19 Exposure Response Date Recorded In the last 10 days, have you been in contact with No / Unsu re 10/15/2021 8:52 AM CDT someone who was confirmed or suspected to have Coronavirus/COVID-19? documented as of this encounter Plan of Treatment Upcoming Encounters Date Type Specialty Care Team Description 04/04/2022 Office Visit banbury operator Kaela Dubois APRN SHAMPOO ASSISTANT [facility] [address] [place], [place] [address] (Wo rk) 04/23/2022 Virtual Visit Endocrinology Lottie Cedillo PA-C [address] [place], [place] [address] (Wo rk) documented as of this encounter Visit Diagnoses Not on filedocumented in this encounter Additional Health Concerns Assessment Noted Time PHQ-9 Depression Total Score: 7 10/02/2021 2:13 PM CDT documented as of this encounter Care Teams Zigzag Machine Operator Relationship Specialty Start Date End Date Nelda Peña, PCP - General Nurse Practitioner 02/02/18 STEWARD/STEWARDESS SECOND CLASS SHAMPOO ASSISTANT [address] [facility] [address] [place] [address] Jose Lopez OD MD Optometry 03/04/18 Jillian Dubois Nurse Practitioner Nurse Practitioner 08/17/18 SHAW Infante [facility] [address] [place] [id number] Nawaf Morocho, Dermatology 04/24/[address] [address] Lottie Cedillo, Assigned Endocrinology 06/14/20 PA-C Provider [address] [place], [place] [phone] Azeem Lindsey, Assigned Behavioral 06/18/20 [facility] Provider [address] [place], [place] [phone] Jillian Dubois Assigned OBGYN Provider 01/28/21 SHAW Infante [facility] [address] [place] [phone] Nawaf Morocho, Assigned Surgical 04/29/[address] [id number] Nelda Peña, Assigned PCP 10/06/[address] [place], [place] [phone] documented as of this encounter
--- OUTSIDE RECORDS SUMMARY | 2022-02-19 14:23 | XMS_ITS | Encounter Summary ---
:1980 Author Organization [place] Address [facility] [place] [address] Care Team Providers Name Role Phone Nelda Peña APRN BOATBUILDER SUPERVISOR Primary Care Provider [phone] Jose Lopez OD Unavailable Jillian Dubois APRN BOATBUILDER SUPERVISOR Unavailable [phone] Nawaf Morocho MD Unavailable Lottie Cedillo-C Unavailable Azeem Lindsey APRN BOATBUILDER SUPERVISOR Unavailable [phone] Jillian Dubois APRN BOATBUILDER SUPERVISOR Unavailable [phone] Nawaf Morocho MD Unavailable Mynor Barry MD Unavailable Encounter Details Date Type Department Care Team Description 10/02/2021 Haley Roy [facility] Nelda Peña, Fermín e effect of drug Clinic Internal DIRECTOR OF RESOURCE DEVELOPMENT BOATBUILDER SUPERVISOR (Primary Dx) Medicine [address] [place], [place] [phone] [phone] Social History Tobacco Use Types Packs/Day Years [...] at Date Recorded Female 05/08/2020 12:57 PM 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 documented as of this encounter Plan of Treatment Upcoming Encounters Date Type Specialty Care Team Description 04/04/2022 Office Visit double spindle shaper operator Kaela Dubois APRN [facility] [address] [place], [place] [address] (Wo rk) 04/23/2022 Virtual Visit Endocrinology Lottie Cedillo PA-C [address] [place] [address] (Wo rk) Scheduled Orders Name Type Priority Associated Diagnoses Order S chedule Potassium Lab Routine Side effect of drug Expected : 10/04/2021, Expires: 01/04/2022 documented as of this encounter Visit Diagnoses Diagnosis Side effect of drug - Primary documented in this encounter Additional Health Concerns Assessment Noted Time PHQ-9 Depression Total Score: 7 10/02/2021 2:13 PM CDT documented as of this encounter Care Teams Flying Squad Salesperson Relationship Specialty Start Date End Date Nelda Peña, PCP - General Nurse Practitioner 02/02/18 [facility] 420 [facility] [address] [place], [place] [address] Jose Lopez, SHELL ARRIOLA Optometry 03/04/18 Jillian Dubois Nurse Practitioner Nurse Practitioner 08/17/18 SHAW Infante [facility] [address] [place] [address] Nawaf Morocho MD Dermatology 04/24/[address] [address] Lottie Cedillo, Assigned Endocrinology 06/14/20 PA-C Provider [address] [place], [place] [address] Azeem Lindsey, Assigned Behavioral 06/18/20 [facility] Provider [address] [place], [place] [address] Jillian Dubois Assigned OBGYN Provider 01/28/21 SHAW Infante [facility] [address] [place] [address] Nawaf Morocho, Assigned Surgical 04/29/[address] [phone] Mynor Barry, Assigned PCP 09/01/21 10/05/21 [place] [address] documented as of this encounter
--- OUTSIDE RECORDS SUMMARY | 2022-02-19 14:23 | XMS_ITS | Clinical Summary ---
:1980 Author Organization [facility] Address [address] [place] [address] Care Team Providers Name Role Phone Nelda Peña APRN PROCESS CONTROL MANAGER Primary Care Provider [phone] Jose Lopez OD Unavailable Jillian Dubois APRN PROCESS CONTROL MANAGER Unavailable [phone] Nawaf Morocho MD Unavailable Lottie Cedillo PA-C Unavailable Azeem Lindsey APRN PROCESS CONTROL MANAGER Unavailable [phone] Jillian Dubois PRODUCE CLERK PROCESS CONTROL MANAGER Unavailable [phone] Teodoro Joaquin MD Unavailable [phone] Nelda Peña APRN PROCESS CONTROL MANAGER Unavailable [phone] Allergies Active Allergy Reactions Severity Noted Date Comments A.R.M. 09/18/2009 Stuffiness, heather anthony eyes No Clinical Screening - See Unknown 05/08/2005 Other reaction(s): *Unknown Comments Medications Medication Sig Dispensed Refills Start End Status Date Date cetirizine (ZYRTEC) Take 10 mg by 0 Active 10 MG tablet mouth daily insulin syringe 31G 1 Application 4 90 each 3 05/14/19 Active X / 0.5 ML times daily 19 MISCIndications: (before meals and Type 1 diabetes nightly) mellitus with complications (H) Continuous Blood 1 Application 5 1 Device 1 06/19/19 Active Gluc Radiation Oncologist times daily 19 (FREESTYLE LEATHA 14 DAY READER) DEVIIndications: 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) Digestive Enzymes 0 Ac tive (PAPAYA AND ENZYMES PO) OMEPRAZOLE PO 0 Active multivitamin Take 1 tablet by 0 Active w/minerals mouth daily (THERA-VIT-M) tablet Calcium 0 Active Carb-Cholecalcifero l (CALCIUM 500+D PO) Injection Device 1 each 4 times 2 each 0 12/09/19 Active for insulin (INPEN daily (before 20 [id number]) meals and DEVIIndications: nightly) 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) Injection Device 2 each 4 times 2 each 0 12/10/19 Active for insulin (INPEN daily (before 20 [id number]) meals and DEVIIndications: nightly) 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) propranolol Take 1-2 tablets 120 tablet 0 12/26/19 Active (INDERAL) 10 MG (10-20 mg) by 21 tabletIndications: mouth 2 times Anxiety daily as needed (anxiety/agitatio n) insulin aspart Inject 1-15 Units 30 mL 4 12/27/19 Active (FIASP FLEXTOUCH) Subcutaneous 4 21 100 UNIT/ML times daily MDD pen-injectorIndicat 55 units ions: 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) fluconazole 0 01/19/20 Active (DIFLUCAN) 150 MG 21 tablet augmented Apply topically 2 50 g 1 04/25/19 Ac tive betamethasone times daily Do 22 dipropionate not apply to (DIPROLENE-AF) 0.05 face, groin, or % external armpits creamIndications: Chronic dermatitis of hands spironolactone Take 1 tablet 30 tablet 11 04/25/19 A ctive (ALDACTONE) 100 MG (100 mg) by mouth 22 tabletIndications: daily Acne vulgaris clindamycin Apply once daily 60 mL 11 04/25/19 A ctive (CLEOCIN T) 1 % to face 22 external lotionIndications: Acne vulgaris citalopram (CELEXA) Take 1 tablet (40 90 tablet 3 10/03/19 Active 40 MG mg) by mouth 22 tabletIndications: daily Episode of recurrent major depressive disorder, unspecified depression episode severity (H) lisinopril Take 1 tablet (5 90 tablet 3 10/03/19 Ac tive (ZESTRIL) 5 MG mg) by mouth 22 tabletIndications: daily 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) cyclobenzaprine Take 1-2 tablets 30 tablet 0 10/20/19 Active (FLEXERIL) 5 MG (5-10 mg) by 22 tabletIndications: mouth 3 times Neck muscle spasm daily as needed for muscle spasms Continuous Blood Change every 14 2 each 6 12/06/19 Active Gluc Sensor days. 22 (FREESTYLE LEATHA 14 DAY SENSOR) MISCIndications: 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) albuterol (PROAIR Inhale 2 puffs 18 g 0 01/20/20 Active HFA/PROVENTIL into the lungs 22 HFA/VENTOLIN HFA) every 6 hours 108 (90 Base) MCG/ACT inhalerIndications: Wheezing predniSONE Take 1 tablet (20 10 tablet 0 01/20/20 A ctive (DELTASONE) 20 MG mg) by mouth 2 22 tabletIndications: times daily Wheezing guaiFENesin-codeine Take 5-10 mLs by 118 mL 0 01/20/20 Active (ROBITUSSIN AC) mouth nightly as 22 100-10 MG/5ML needed for cough solutionIndications : Acute bacterial bronchitis norethindrone Take 1 tablet (5 90 tablet 0 01/31/20 Active (AYGESTIN) 5 MG mg) by mouth 22 tabletIndications: daily Abnormal uterine bleeding (AUB) insulin lispro Inject 20 Units 54 mL 0 02/02/20 Active (HUMALOG VIAL) 100 Subcutaneous 3 22 UNIT/ML times daily vialIndications: (before meals) 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) insulin glargine Inject 46 Units 60 mL 0 02/16/20 Active (LANTUS PEN) 100 Subcutaneous At 22 UNIT/ML Bedtime penIndications: 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) insulin pen needle Use 1 pen needles 100 each 0 02/16/20 Active (32G X 4 MM) 32G X daily or as 22 4 MM directed. miscellaneousIndica tions: 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) LANTUS SOLOSTAR 100 INJECT 46 UNITS 45 mL 0 02/16/20 Active UNIT/ML SUBCUTANEOUSLY AT 22 solnIndications: BEDTIME 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) insulin glargine Inject 46 Units 45 mL 3 12/27/19 Discontinued (LANTUS PEN) 100 Subcutaneous At 21 022 UNIT/ML Bedtime penIndications: 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) norethindrone Take 1 tablet (5 90 tablet 3 01/19/20 Discontinued (AYGESTIN) 5 MG mg) by mouth 022 ( Reorder) tabletIndications: daily Abnormal uterine bleeding (AUB) insulin lispro Inject 20 Units 54 mL 0 10/03/19 Discontinued (HUMALOG VIAL) 100 Subcutaneous 3 022 (Reorder) UNIT/ML times daily vialIndications: (before meals) Type 1 diabetes for 90 days mellitus with complications (H) amoxicillin-clavula Take 1 tablet by 20 tablet 0 01/20/2004/01 devora (AUGMENTIN) mouth 2 times 22 022 875-125 MG daily for 10 days tabletIndications: Acute bacterial bronchitis tobramycin (TOBREX) Place 1-2 drops 5 mL 0 01/20/2012/30 0.3 % ophthalmic into both eyes 22 022 solutionIndications every 4 hours for : Bacterial 7 days conjunctivitis of both eyes doxycycline hyclate Take 1 capsule 14 capsule 0 02/09/2001/29 (VIBRAMYCIN) 100 MG (100 mg) by mouth 22 02 2 capsuleIndications: 2 times daily for Sinobronchitis 7 days benzonatate Take 1 capsule 21 capsule 0 02/09/20 Ex pired (TESSALON) 200 MG (200 mg) by mouth 22 022 capsuleIndications: 3 times daily as Sinobronchitis needed for cough Hospital, Clinic, or Ordered Dose Route Frequency Start Date End D ate Status Other Facility Administered Medication LORazepam (ATIVAN) 1 mg PO EVERY 4 HOURS PRN 10/25/2020 Active tablet 1 mgIndications: Stable proliferative diabetic retinopathy of both eyes associated with type 1 diabetes mellitus (H) Active Problems Problem Noted Date Morbid obesity 01/18/2021 Abnormal uterine bleeding (AUB) 02/03/2020 Overview: Added automatically from request for kristel francisco [id number] Screening for cervical cancer 03/25/2017 Overview: Formatting of this note might be differe nt from the original. 2017 NILM, HPV negative Plan: repeat pap and HPV co-testing in 3 years Anxiety and depression 05/29/2015 Microalbuminuria 05/29/2015 Contraceptive, surveillance, intrauterine device 04/24 Overview: Formatting of this note might be differe nt from the original. mirena placed 04/24/15 Major depressive disorder, single episode, severe 11/2009 Background diabetic retinopathy 02/08/2010 Hyperopia 11/10/2009 Regular astigmatism 11/10/2009 Type 1 diabetes mellitus with complications 09/18/2009 Overview: (Problem list name updated by automated process. Provider to review and confirm.) Adjustment disorder with depressed mood 04/19/2009 Rosacea 04/19/2009 Cellulitis and abscess 04/03/2007 Disorder of thyroid 04/28/2006 Allergic rhinitis 08/22/2004 Asthma with acute exacerbation 08/22/2004 Encounters Date Type Specialty Care Team Description 02/19/2022 Telephone Internal Medicine Nelda Peña, Rolly ointment PRODUCE CLERK PROCESS CONTROL MANAGER 02/15/2022 Refill Endocrinology Lottie eCdillo, Refill Re quest (insulin PA-C glargine (LANTU S PEN) 100 UNIT/ML pen ) 02/14/2022 Telephone Endocrinology Lottie Cedillo, Medicatio n Request PA-C 02/08/2022 Office Visit Urgent Care Shae Rayo, Sinobronhiren kumari (Primary Dx); EQUITY MANAGER Acute cough; Throat pain; Mild intermitte nt asthma with acute exacerbation; 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) 02/08/2022 Travel 01/31/2022 Refill Internal Medicine Nelda Peña, Ref ill Request (insulin PRODUCE CLERK PROCESS CONTROL MANAGER lispro (HUMALOG VIAL) 100 UNIT/ML via l ) 01/29/2022 Telephone chemical dependency therapist Jillian Dubois Refill R demetrio Infante APRN PROCESS CONTROL MANAGER 01/29/2022 Travel 01/19/2022 Office Visit Urgent Care Vargas Dodge, Bacterial c onjunctivitis of both eyes (Primary Dx); PA-C Wheezing; 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); Acute bacterial bronchitis 01/19/2022 Travel 11/30/2021 Refill Internal Medicine Nelda Peña, Med ication Refill PRODUCE CLERK PROCESS CONTROL MANAGER (FREESTYLE LIBR E SENSOR 14D KIT) from Last 3 Months Immunizations Name Administration Dates Next Due HepB-Adult 11/16/2014, 10/20/2013 Influenza Vaccine >6 months (Alfuria,Fluzone) 02/08/2021, Pneumococcal 23 valent 02/17/2018 Tdap (Adacel,Boostrix) 06/06/2014 Twinrix A/B 11/16/2014, 10/20/2013 Family History Medical History Relation Comments Glaucoma Father glaucoma suspect Hypertension Father Diabetes Type 2 Maternal Grandfather Kidney Disease Maternal Grandfather Back Pain Maternal Grandmother Osteoporosis Maternal Grandmother Anxiety Disorder Mother Asthma Mother Impaired Fasting Glucose Mother Osteoarthritis Mother Seasonal/Environmental Allergies Mother Diabetes Type 2 Paternal Grandmother Obesity Sister Macular Degeneration No family hx of Relation Status Comments Brother 1 Alive Brother 2 Alive Father Alive Maternal Grandfather Maternal Grandmother Mother Alive Paternal Grandmother Sister Alive Social History Tobacco Use Types Packs/Day Years Used Date Smoking Tobacco: Never Smokeless Tobacco: Never Tobacco Cessation: Counseling Given: No Alcohol Use Standard Drinks/Week Comments Yes 0 [...] at Date Recorded Female 05/08/2020 12:57 PM STEM THRESHING MACHINE OPERATOR COVID-19 Exposure Response Date Recorded In the last 10 days, have you been in contact with No / Unsu re 02/08/2022 6:05 PM STEM THRESHING MACHINE OPERATOR someone who was confirmed or suspected to have Coronavirus/COVID-19? Last Filed Vital Signs Vital Sign Reading Time Taken Comments Blood Pressure 120/81 02/08/2022 6:29 PM STEM THRESHING MACHINE OPERATOR Pulse 89 02/08/2022 6:29 PM STEM THRESHING MACHINE OPERATOR Temperature 36.7 ??C (98.1 ??F) 02/08/2022 6:29 PM STEM THRESHING MACHINE OPERATOR Respiratory Rate 16 10/19/2021 12:19 PM CDT Oxygen Saturation 97% 02/08/2022 6:29 PM STEM THRESHING MACHINE OPERATOR Inhaled Oxygen Concentration - - Weight 105.5 kg (232 lb 8 oz) 10/19/2021 12:19 PM CDT Height 157.5 cm (5' 2) 10/02/2021 1:29 PM CDT Body Mass Index 42.52 10/02/2021 1:29 PM CDT Plan of Treatment Upcoming Encounters Date Type Specialty Care Team Description 04/04/2022 Office Visit chemical dependency therapist Kaela Dubois APRN [facility] [address] [place] [address] (Wo rk) 04/23/2022 Virtual Visit Endocrinology Lottie Cedillo PA-C [address] [place], [place] [phone] (Wo rk) Health Maintenance Due Date Last Done Comments ADVANCE CARE PLANNING 1980 ANNUAL REVIEW OF HM ORDERS 1980 ASTHMA ACTION PLAN 1980 ASTHMA CONTROL TEST 1980 DEPRESSION ACTION PLAN 1980 HEPATITIS C SCREENING 1998 HEPATITIS B IMMUNIZATION (3 01/11/2015 11/16/2014, 11/17/19 15, of 3 - 3-dose series) 10/20/2013, Additional history exists Pneumococcal Vaccine: 02/17/2019 02/17/2018 Pediatrics (0 to 5 Years) and At-Risk Patients (6 to 64 Years) (2 - PCV) LIPID 03/21/2019 03/21/2018 DIABETIC FOOT EXAM 06/09/2020 06/10/2019, 08/29/2018 COVID-19 Vaccine (4 - 06/01/2021 04/06/2021, 07/25/2020, Booster for Pfizer series) 07/04/2020 A1C 06/24/2021 12/25/2020, 12/07/2019, 04/06/2019, Additional history exists INFLUENZA VACCINE (#1) 2021 02/08/2021, 02/17/2018 EYE EXAM 12/05/2021 12/05/2020, 12/05/2020, 10/17/2020, Additional history exists YEARLY PREVENTIVE VISIT 01/18/2022 01/18/2021 PHQ-9 04/04/2022 10/02/2021, 04/06/2019, 02/26/2018, Additional history exists BMP 09/25/2022 09/25/2021, 08/17/2018, 03/21/2018, Additional history exists MICROALBUMIN 09/25/2022 09/25/2021, 03/21/2018 DTAP/TDAP/TD IMMUNIZATION 06/06/2024 06/06/2014 (2 - Td or Tdap) HPV TEST 01/18/2026 01/18/2021 PAP 01/18/2026 01/18/2021 HIV SCREENING Completed 02/17/2018 IPV IMMUNIZATION Aged Out No longer eligi ble based on patient 's age to complete this topic MENINGITIS IMMUNIZATION Aged Out No longe r eligible based on patient 's age to complete this topic Procedures Procedure Name Priority Date/Time Associated Diagnosis Comme nts GROUP A STREPTOCOCCUS Routine 02/08/2022 6:34 Throat pain Res ults for this PCR THROAT SWAB PM STEM THRESHING MACHINE OPERATOR procedure ar e in the results section. STREPTOCOCCUS A RAPID Routine 02/08/2022 6:34 Throat pain Res ults for this SCREEN W REFELX TO PM STEM THRESHING MACHINE OPERATOR procedure are in PCR the results section. COVID-19 VIRUS Routine 02/08/2022 6:34 Acute cough Results for this (CORONAVIRUS) BY PCR PM STEM THRESHING MACHINE OPERATOR Throat pain procedu re are in the results section. INFLUENZA A/B ANTIGEN Routine 01/19/2022 11:55 Wheezing Re sults for this AM CDT procedure are i n the results section. GROUP A STREPTOCOCCUS Routine 01/19/2022 11:46 Bacterial Re sults for this PCR THROAT SWAB AM CDT conjunctivitis of both pr ocedure are in eyes the results section. STREPTOCOCCUS A RAPID Routine 01/19/2022 11:46 Bacterial Re sults for this SCREEN W REFELX TO AM CDT conjunctivitis of both procedure are in PCR eyes the results section. from Last 3 Months Results Symptomatic; Unknown COVID-19 Virus (Coronavirus) by PCR Nose (02/08/2022 6:34 PM STEM THRESHING MACHINE OPERATOR) Analysis Performed At Patho logist Time Signature SARS CoV2 PCR Negative Negative 02/10/2022 [facility] 1:30 PM STEM THRESHING MACHINE OPERATOR LABORATORY Comment: NEGATIVE: SARS-CoV-2 (COVID-19) RNA not detected, presumed negative. Specimen Anatomical Collection Method Collection Time Receive d Time (Source) Location / / Volume Laterality Swab NASAL STRUCTURE / Non-blood 02/08/2022 6:34 PM 01/29 6:39 Unknown Collection / STEM THRESHING MACHINE OPERATOR PM STEM THRESHING MACHINE OPERATOR Unknown Narrative [facility] - 02/10/2022 1:[address] Testing was performed using the Aptima SARS-CoV-2 Assay on the iVerse Media Instrument System. Additional in formation about this [...] COVID-19. This test was validated by the [facility]. This lab oratory is certified under the Clinical Laboratory Improvement Amen dments of 1987 (CLIA-88) as qualified to perform high complexity lab oratory testing. Rachele Burris PA-C LAB - MICRO GENERAL ORDERABL ES Performing Organization Address City/State/ZIP Code Phon e Number [facility] LABORATORY [facility] [place] [id number] Diag. Lab [address] [facility], Room [address] Streptococcus A Rapid Screen w/Reflex to PCR (02/08/2022 6:34 PM STEM THRESHING MACHINE OPERATOR)Only the most recent of2 resultswithin the time period is included. Analysis Performed At Path logist Time Signature Group A Strep Negative Negative 02/08/2022 [facility]AT[facility] antigen 6:46 PM STEM THRESHING MACHINE OPERATOR Specimen Anatomical Collection Method Collection Time Receive d Time (Source) Location / / Volume Laterality Swab STRUCTURE OF Non-blood 02/08/2022 6:34 PM 2 6:39 ANTERIOR PORTION Collection / STEM THRESHING MACHINE OPERATOR PM STEM THRESHING MACHINE OPERATOR OF NECK / Unknown Unknown Rachele Burris PA-C LAB - MICRO GENERAL ORDERABL ES Performing Organization Address [facility]/ZIP Code [place] Number [place] [address] Lab [address] [facility] Lab (no room number, 1st floor of clinic) [place] [address], [facility] [address] [facility] Lab (no room number, 1st floor of clinic) Group A Streptococcus PCR Throat Swab (02/08/2022 6:34 PM STEM THRESHING MACHINE OPERATOR)Only the most recent of2 resultswithin the time period is included. [facility] gist Method Time Signature Group A strep Not Detected Not Detected 02/09/2022 [facility] by PCR 7:28 PM STEM THRESHING MACHINE OPERATOR LABORATORY Specimen Anatomical Collection Method Collection Time Receive d Time (Source) Location / / Volume Laterality Swab STRUCTURE OF Non-blood 02/08/2022 6:34 PM 2 6:46 ANTERIOR PORTION Collection / STEM THRESHING MACHINE OPERATOR PM STEM THRESHING MACHINE OPERATOR OF NECK / Unknown Unknown Narrative [facility] - 02/09/2022 7:[address] The Xpert Xpress Strep A test, performed on the GeneXEvocalize?? Instrument Systems, is a rapid, qualitative in [...] (PCR) to detect Streptococcus pyogenes DNA. Rachele Burris PA-C LAB - MICRO GENERAL ORDERABL ES Performing Organization Address City/State/ZIP Code Phon e Number [facility] [place] [address] Diag. Lab [address] [facility], [address] Influenza A & B Antigen (01/19/2022 11:55 AM CDT) Analysis Performed At Patho logist Time Signature Influenza A Negative Negative 01/19/2022 [facility] antigen 12:19 PM CDT Influenza B Negative Negative 01/19/2022 [facility] antigen 12:19 PM CDT Specimen Anatomical Collection Method Collection Time Receive d Time (Source) Location / / Volume Laterality Swab NASAL STRUCTURE / Non-blood 01/19/2022 11:55 2021 Unknown Collection / AM CDT 11:57 AM CDT Unknown Narrative LABORATORY - 01/19/2022 12:19 PM CDT Test results must be correlated with cli nical data. If necessary, results should be confirmed by a molecular assay or viral culture. Vargas Dodge PA-C LAB - MICRO GENERAL ORDERABL ES Performing Organization Address City/[facility] [place] [phone] Lab [address] [facility] Lab (no room number, 1st floor of clinic) [place] [address], [facility] [address] [facility] Lab (no room number, 1st floor of clinic) from Last 3 Months Insurance Payer Benefit Plan / Subscriber ID Effective Dates Phone Addre ss Type Group BCBS BCBS OUT OF [id number] 2021-Present [phone] [address] [address] [place] [address] Tamiko Méndez Personal/Family Self 1980 [phone] (Home) [place] [address] Tamiko Méndez Personal/Family Self 1980 [phone] (Home) [place] [address] HusainElie mcgheeanand Employer Related Other 04/16/1978 [phone] (Home) [phone] [place], [place] 8 (Work) [id number] [employer] Employer Related Employer [phone] [place], [place] [address]LL [facility] 1 (Work) [place] [address] Tamiko Méndez Behavioral Self 1980 [phone] (Home) [place] [address] Care Teams Liner Replacer Relationship Specialty Start Date End Date Nelda Peña, PCP - General Nurse Practitioner 02/02/18 PRODUCE CLERK [facility] [address] [facility] [address] [place], [place] [address] Jose Lopez OD MD Optometry 03/04/18 Jillian Dubois Nurse Practitioner Nurse Practitioner 08/17/18 SHAW Infante PROCESS CONTROL MANAGER [facility] [address] [place], [place] [address] Nawaf Morocho MD Dermatology 04/24/20 [facility] [address] [facility] [address] [place], [place] [address] Lottie Cedillo, Assigned Endocrinology 06/14/20 PA-C Provider [address] [place] [address] Azeem Lindsey, Assigned Behavioral 06/18/20 PRODUCE CLERK [facility] Provider [address] [place], [place] [id number] Jillian Dubois Assigned OBGYN Provider 01/28/21 SHAW Infante [facility] [address] [place] [address] Liz Kirkland, Assigned Surgical 10/27/21 MD Teodoro Provider [address] [place] [address] Nelda Peña, Assigned PCP 10/06/[address] [place] [address]
--- OUTSIDE RECORDS SUMMARY | 2022-02-19 14:23 | XMS_ITS | Encounter Summary ---
:1980 Author Organization [facility] Address [facility] [place] [address] Care Team Providers Name Role Phone Nelda Peña APRN GASOLINE DRAGLINE OPERATOR Primary Care Provider Jose Lopez OD Unavailable Jillian Dubois APRN GASOLINE DRAGLINE OPERATOR Unavailable [phone] Nawaf Morocho MD Unavailable Lottie Cedillo-Robert Unavailable Azeem Lindsey APRN GASOLINE DRAGLINE OPERATOR Unavailable [phone] Jillian Dubois VETERANS SERVICE OFFICER GASOLINE DRAGLINE OPERATOR Unavailable [phone] Teodoro Joaquin MD Unavailable [phone] Nelda Peña APRN GASOLINE DRAGLINE OPERATOR Unavailable [phone] Reason for Visit Reason Onset Date Comments Refill Request 01/31/2022 insulin lispro (KEVIN LOG VIAL) 100 UNIT/ML vial Encounter Details Date Type Department Care Team Description 01/31/2022 Refill [facility] Nelda Peña, Ref ill Request (insulin Clinic Internal VETERANS SERVICE OFFICER GASOLINE DRAGLINE OPERATOR lispro (HUMALOG VIAL) [address] [facility] 100 UNIT/ML vial ) [address] [facility] [address] [place] [address] [place], [place] [phone] (Wo rk) [address] [phone] Social History Tobacco Use Types Packs/Day Years [...] at Date Recorded Female 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 documented as of this encounter Miscellaneous Notes Telephone Encounter - Adilene Valencia RN - 02/01/2022 5:30 PM CDT insulin lispro (HUMALOG VIAL) 100 UNIT/ML vial 54 mL 0 10/02/2021 Last Written Prescription Date: 10-02-2021 Last Fill Quantity: 54, # refills: 0 Last Office Visit : 10-02-2021 Future Office visit: none 30 day zeferino refill sent to the pharmacy - including instructions for patient to call the clinic andschedule an appointment. A1c is overdue and pt has had one 30 day refill already. Adilene Valencia RN Telephone Encounter - Inocencia Marcano LPN - 02/01/2022 1:50 PM CDT Images from the original note were not included. documented in this encounter Plan of Treatment Upcoming Encounters Date Type Specialty Care Team Description 04/04/2022 Office Visit mobile application development lead Kaela Dubois APRN [facility] [address] [place] [address] (Wo rk) 04/23/2022 Virtual Visit Endocrinology Lottie Cedillo , PAFacundoC [address] [place] [address] (Wo rk) documented as of this encounter Visit Diagnoses Diagnosis Type 1 diabetes mellitus with complicati ons (H) documented in this encounter Additional Health Concerns Assessment Noted Time PHQ-9 Depression Total Score: 7 10/02/2021 2:13 PM CDT documented as of this encounter Care Teams Tentering Machine Off Bearer Relationship Specialty Start Date End Date Nelda Peña, PCP - General Nurse Practitioner 02/02/18 SHAW [facility] [address] [facility] [address] [place] [address] Jose Lopez OD MD Optometry 03/04/18 Jillian Dubois Nurse Practitioner Nurse Practitioner 08/17/18 SHAW Infante [facility] [address] [place] [address] Nawaf Morocho MD Dermatology 04/24/20 [facility] [address] [facility] [address] [place] [address] Lottie Cedillo, Assigned Endocrinology 06/14/20 PA-C Provider [address] [place] [address] Azeem Lindsey, Assigned Behavioral 06/18/20 [facility] [address] [place] [address] Jillian Dubois Assigned OBGYN Provider 01/28/21 SHAW Infante [facility] [address] [place] [address] Liz Kirkland, Assigned Surgical 10/27/21 MD Teodoro Provider [address] [place] [address] Nelda Peña, Assigned PCP 10/06/21 [facility] [address] [facility] [address] [facility] [address] [place] [address] documented as of this encounter
--- OUTSIDE RECORDS SUMMARY | 2022-02-19 14:23 | XMS_ITS | Encounter Summary ---
:1980 Author Organization [place] Address [facility] [place] [address] Care Team Providers Name Role Phone Nelda Peña APRN TRANSFORMER MOLDER Primary Care Provider [phone] Jose Lopez OD Unavailable Jillian Dubois APRN TRANSFORMER MOLDER Unavailable [phone] Nawaf Morocho MD Unavailable Lottie Cedillo PA-C Unavailable Azeem Lindsey APRN TRANSFORMER MOLDER Unavailable [phone] Jillian Dubois DIRECTORY ASSISTANCE OPERATOR TRANSFORMER MOLDER Unavailable [phone] Teodoro Joaquin MD Unavailable [phone] Nelda Peña APRN TRANSFORMER MOLDER Unavailable [phone] Reason for Referral Medication Prior Authorization - Authorized Specialty Diagnoses / Procedures Referred By Contact Refer red To Contact Diagnoses Acute bacterial bronchitis Vargas Dodge PA-C [address] [place], [place] [address] Referral ID Status Reason Start Date Expiration Date Visits V isits Requested Authorized [id number] Authorized 01/21/2022 07/22/2022 1 1 Clinically Administered Medications (Routine) - Closed Specialty Diagnoses / Procedures Referred By Contact Refer red To Contact Diagnoses Acute bacterial bronchitis Vargas Dodge PA-C Procedures ZZC CEFTRIAXONE NA INJ /250MG [address] [place], [place] [address] Referral ID Status Reason Start Date Expiration Date Visits Requ ested Visits Authorized [id number] Closed 01/19/2022 01/19/2023 1 1 Reason for Visit Reason Comments Urgent Care Cough, chest congestion, hea dache, sore throat and loss of voice which started Friday01/14/22. Pt took Covid test Friday01/14/22 and it was negative. Clinically Administered Medications (Routine) - Closed Specialty Diagnoses / Procedures Referred By Contact Refer red To Contact Diagnoses Acute bacterial bronchitis Vargas Dodge PA-C Procedures ZZC CEFTRIAXONE NA INJ /250MG [address] [place], [place] [address] Referral ID Status Reason Start Date Expiration Date Visits Requ ested Visits Authorized [id number] Closed 01/19/2022 01/19/2023 1 1 Encounter Details Date Type Department Care Team Description 01/19/2022 Office Visit [facility] Vargas Dodge, Bacter ial conjunctivitis of both eyes (Primary Dx); Urgent Care Thi mendiola PA-C Wheezing; [address] Type 1 diabetes mellitus with complicati ons (H); [place], [place] Acute bacte rial bronchitis [phone] Social History Tobacco Use Types Packs/Day Years [...] at Date Recorded Female 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 documented as of this encounter Last Filed Vital Signs Vital Sign Reading Time Taken Comments Blood Pressure 118/79 01/19/2022 11:50 AM CDT Pulse 57 01/19/2022 11:50 AM CDT Temperature 36.8 ??C (98.2 ??F) 01/19/2022 11:50 AM CDT Respiratory Rate - - Oxygen Saturation 95% 01/19/2022 11:50 AM CDT Inhaled Oxygen Concentration - - Weight - - Height - - Body Mass Index - - documented in this encounter Patient Instructions AttachmentsThe following attachments cannot be sent through Care Everywhere. Bronchitis, Antibiotic Treatment (Adult) (Kuwaiti)documented in this encounter Progress Notes Vargas Dodge PA-C - 01/19/2022 11:40 AM CDT Assessment & Plan Bacterial conjunctivitis of both eyes Warm moist compresses Wash hands Start on tobramycin ophthalmic drops - tobramycin (TOBREX) 0.3 % ophthalmic solution; Place 1-2 drops into both eyes every 4 hours for 7 days Wheezing Albuterol and prednisone for wheezing - Influenza A & B Antigen - albuterol (PROAIR HFA/PROVENTIL HFA/VENTOLIN HFA) 108 (90 Base) MCG/ACT inhaler; Inhale 2 puffs into the lungs every 6 hours - predniSONE (DELTASONE) 20 MG tablet; Take 1 tablet (20 mg) by mouth 2 times daily 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) Monitor blood sugars as prednisone will temporarily increase blood sugars Acute bacterial bronchitis Bronchitis is an infection of the air passages (bronchial tubes) in your lungs. It often occurs whenyou have a cold. This illness is contagious during the first few days and is spread through the air by coughing and sneezing, or by direct contact (touching the sick person and then touching your own eyes, nose, or mouth). Symptoms of bronchitis include cough with mucus (phlegm) and low-grade fever. Bronchitis usually lasts 7 to 14 days. Mild cases can be treated with simple home remedies. More severe infection is treated with an antibiotic. - cefTRIAXone (ROCEPHIN) injection 1 g - amoxicillin-clavulanate (AUGMENTIN) 875-125 MG tablet; Take 1 tablet by mouth 2 times daily for 10days - guaiFENesin-codeine (ROBITUSSIN AC) 100-10 MG/5ML solution; Take 5-10 mLs by mouth nightly as needed for cough Review of external notes as documented elsewhere in note BMI: Estimated body mass index is 42.52 kg/m?? as calculated from the following: Height as of 10/02/21: 1.575 m (5' 2). Weight as of 10/19/21: 105.5 kg (232 lb 8 oz). At today's visit with Tamiko Méndez , we discussed results, diagnosis, medications and formulated aplan. We also discussed red flags for immediate return to clinic/ER, as well as indications for follow up with PCP if not improved in 3 days. Patient understood and agreed to plan. Tamiko Turnert was di scharged with stable vitals and has no further questions. No follow-ups on file. Vargas Dodge, [facility], PA-Robert M [facility] Hernández is a 41 year old, presenting for the following health issues: Urgent Care (Cough, chest congestion, headache, sore throat and loss of voice which started Friday01/14/22. Pt took Covid test Friday01/14/22 and it was negative.) HPI Review of Systems Constitutional, HEENT, cardiovascular, pulmonary, GI, , musculoskeletal, neuro, skin, endocrine and psych systems are negative, except as otherwise noted. Objective BP 118/79 (BP Location: Right arm, Patient Position: Sitting, Cuff Size: Adult Regular) Pulse 57 Temp 98.2 ??F (36.8 ??C) (Oral) SpO2 95% There is no height or weight on file to calculate BMI. Physical Exam GENERAL: healthy, alert and no distress EYES: Eyes grossly normal to inspection, PERRL and conjunctivae and sclerae normal HENT: ear canals and TM's normal, nose and mouth without ulcers or lesions NECK: no adenopathy, no asymmetry, masses, or scars and thyroid normal to palpation RESP: rhonchi throughout and expiratory wheezes throughout CV: regular rate and rhythm, normal S1 S2, no S3 or S4, no murmur, click or rub, no peripheral edemaand peripheral pulses strong MS: no gross musculoskeletal defects noted, no edema SKIN: no suspicious lesions or rashes NEURO: Normal strength and tone, mentation intact and speech normal PSYCH: mentation appears normal, affect normal/bright Results for orders placed or performed in visit on 01/19/22 Streptococcus A Rapid Screen w/Reflex to PCR Status: Normal Specimen: Throat; Swab Result Value Ref Range Group A Strep antigen Negative Negative Influenza A & B Antigen Status: Normal Specimen: Nose; Swab Result Value Ref Range Influenza A antigen Negative Negative Influenza B antigen Negative Negative Narrative Test results must be correlated with clinical data. If necessary, results should be confirmed by a molecular assay or viral culture. documented in this encounter Plan of Treatment Upcoming Encounters Date Type Specialty Care Team Description 04/04/2022 Office Visit insole channeler Kaela Dubois APRN [facility] [address] [place] [address] (Maryjane pa) 04/23/2022 Virtual Visit Endocrinology Lottie Cedillo PA-C [address] [place] [address] (Maryjane pa) documented as of this encounter Procedures Procedure Name Priority Date/Time Associated Diagnosis Comme nts INFLUENZA A/B ANTIGEN Routine 01/19/2022 11:55 Wheezing Re sults for this AM CDT procedure are i n the results section. STREPTOCOCCUS A RAPID Routine 01/19/2022 11:46 Bacterial Re sults for this SCREEN W REFELX TO AM CDT conjunctivitis of both procedure are in PCR eyes the results section. GROUP A STREPTOCOCCUS Routine 01/19/2022 11:46 Bacterial Re sults for this PCR THROAT SWAB AM CDT conjunctivitis of both pr ocedure are in eyes the results section. documented in this encounter Results Influenza A & B Antigen (01/19/2022 11:55 [...] Organization Address City/State/ZIP Code Phon [place] [address] Lab [address] [facility] Lab (no room number, 1st floor of clinic) [place] [address], [facility] [address] [facility] Lab (no room number, 1st floor of clinic) Group A Streptococcus PCR Throat Swab (01/19/2022 11:46 AM CDT) Patholo gist Method Time Signature Group A strep Not Detected Not Detected 01/20/2022 [facility] by PCR 4:40 PM CDT LABORATORY Specimen Anatomical Collection Method Collection Time Receive d Time (Source) Location / / Volume Laterality Swab STRUCTURE OF Non-blood 01/19/2022 11:46 01/19/2022 ANTERIOR PORTION Collection / AM CDT 12:08 PM CD T OF NECK / Unknown Unknown Narrative [facility] LAB[facility]ATORY - 01/20/2022 4:40 PM C DT The Xpert Xpress Strep A test, performed on the GeneXNERITES?? Instrument Systems, is a rapid, qualitative in [...] reaction (PCR) to detect Streptococcus pyogenes DNA. Vargas Dodge PA-C LAB - MICRO GENERAL ORDERABL ES Performing Organization Address City/State/ZIP Code Phon e Number [facility] LABORATORY [facility] [place] [address] Diag. Lab [address] [facility], Room [address]297 Streptococcus A Rapid Screen w/Reflex to PCR (01/19/2022 11:46 AM CDT) Analysis Performed At Patho logist Time Signature Group A Strep Negative Negative 01/19/2022 [facility] LABORATORY antigen 12:08 PM CDT Specimen Anatomical Collection Method Collection Time Receive d Time (Source) Location / / Volume Laterality Swab STRUCTURE OF Non-blood 01/19/2022 11:46 01/19/2022 ANTERIOR PORTION Collection / AM CDT 11:57 AM CD T OF NECK / Unknown Unknown Vargas Dodge PA-C LAB - MICRO GENERAL ORDERABL ES Performing Organization Address City/State/ZIP Code Phon [place] Number [place] [phone] Lab [address] [facility] Lab (no room number, 1st floor of clinic) [place] [address], [phone] [facility] [address] [facility] (no room number, 1st floor of clinic) documented in this encounter Visit Diagnoses Diagnosis Bacterial conjunctivitis of both eyes - Primary Wheezing Type 1 diabetes mellitus with complicati ons (H) Acute bacterial bronchitis Acute bronchitis documented in this encounter Administered Medications Inactive Administered Medications - up to 3 most recent administrations Medication Order MAR Action Action Date Dose Rate Site cefTRIAXone (ROCEPHIN) injection 1 g Given 01/19/2022 1:07 PM CDT 1 g Routine, 1 g, Intramuscular, ONCE, On 01/19/22 at 1230, For 1 dose, Reconstitute 1 g vial with 2.1 mL of NS to yield a concentration of 350 mg/mL., Indications: Community Acquired Pneumonia, See associated diagnosis for clinic use documented in this encounter Additional Health Concerns Assessment Noted Time PHQ-9 Depression Total Score: 7 10/02/2021 2:13 PM CDT documented as of this encounter Care Teams Material Manager Relationship Specialty Start Date End Date Nelda Peña, PCP - General Nurse Practitioner 02/02/18 [facility] [address] [facility] [address] [place] [address] Jose Lopez OD MD Optometry 03/04/18 Jillian Dubois Nurse Practitioner Nurse Practitioner 08/17/18 SHAW Infante [facility] [address] [place] [address] Nawaf Morocho MD Dermatology 04/24/20 [facility] [address] [facility] [address] [place], [place] [address] Lottie Cedillo, Assigned Endocrinology 06/14/20 PA-C Provider [address] [place], [place] [address] Azeem Lindsey, Assigned Behavioral 06/18/20 [facility] Health Provider [address] [place], [place] [address] Jillian Dubois Assigned OBGYN Provider 01/28/21 SHAW Infante TRANSFORMER MOLDER [facility] [address] [place], [place] [phone] Liz Kirkland, Assigned Surgical 10/27/21 MD Teodoro Provider [address] [place] [address] Nelda Peña, Assigned PCP 10/06/21 DIRECTORY ASSISTANCE OPERATOR TRANSFORMER MOLDER [address] [facility] [address] [place] [address] documented as of this encounter
--- OUTSIDE RECORDS SUMMARY | 2022-02-19 14:23 | XMS_ITS | Encounter Summary ---
:1980 Author Organization [place] Address [facility] [place] [address] Care Team Providers Name Role Phone Nelda Peña APRN [facility] Primary Care Provider [phone] Jose Lopez OD Unavailable Jillian Dubois APRN HEALTH CENTER ASSOCIATE Unavailable [phone] Nawaf Morocho MD Unavailable Lottie Cedillo-Robert Unavailable Azeem Lindsey APRN HEALTH CENTER ASSOCIATE Unavailable [phone] Jillian Dubois OFFICE SERVICES ASSOCIATE HEALTH CENTER ASSOCIATE Unavailable [phone] Teodoro Joaquin MD Unavailable [phone] Nelda Peña APRN HEALTH CENTER ASSOCIATE Unavailable [phone] Encounter Details Date Type Department Care Team Description 01/29/2022 Travel Social History Tobacco Use Types Packs/Day [...] at Date Recorded Female 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 documented as of this encounter Plan of Treatment Upcoming Encounters Date Type Specialty Care Team Description 04/04/2022 Office Visit poultry husbandry worker Kaela Dubois APRN [facility]ALTH CENTER ASSOCIATE [facility] [address] [place], [place] [address] (Wo rk) 04/23/2022 Virtual Visit Endocrinology Lottie Cedillo PA-C [address] [place] [address] (Wo rk) documented as of this encounter Visit Diagnoses Not on filedocumented in this encounter Additional Health Concerns Assessment Noted Time PHQ-9 Depression Total Score: 7 10/02/2021 2:13 PM CDT documented as of this encounter Care Teams Chief Strategy Officer Relationship Specialty Start Date End Date Nelda Peña, PCP - General Nurse Practitioner 02/02/18 OFFICE SERVICES ASSOCIATE HEALTH CENTER ASSOCIATE [address] [facility] [address] [place] [address] Jose Lopez OD MD Optometry 03/04/18 Jillian Dubois Nurse Practitioner Nurse Practitioner 08/17/18 SHAW Infante [facility] [address] [place], [place] [phone] Nawaf Morocho MD Dermatology 04/24/20 [facility] [address] [facility] [address] [place], [place] [address] Lottie Cedillo, Assigned Endocrinology 06/14/20 PA-C Provider [address] [place], [place] [address] Azeem Lindsey, Assigned Behavioral 06/18/20 [facility] Provider [address] [place], [place] [address] Jillian Dubois Assigned OBGYN Provider 01/28/21 SHAW Infante [facility] [address] [place], [place] [phone] Liz Kirkland, Assigned Surgical 10/27/21 MD Teodoro Provider [address] [place] [address] Nelda Peña, Assigned PCP 10/06/[address] [place], [place] [address] documented as of this encounter
--- OUTSIDE RECORDS SUMMARY | 2022-02-19 14:23 | XMS_ITS | Encounter Summary ---
:1980 Author Organization [place] Address [address] [place] [address] Care Team Providers Name Role Phone Nelda Peña APRN HARVEST FIELD TICKETER Primary Care Provider [phone] Jose Lopez OD Unavailable Jillian Dubois APRN HARVEST FIELD TICKETER Unavailable [phone] Nawaf Morocho MD Unavailable Lottie Cedillo PA-C Unavailable Azeem Lindsey APRN HARVEST FIELD TICKETER Unavailable [phone] Jillian Dubois APRN HARVEST FIELD TICKETER Unavailable [phone] Nawaf Morocho MD Unavailable Nelda Peña APRN HARVEST FIELD TICKETER Unavailable [phone] Reason for Visit Reason Comments Urgent Care Mass Lump on back of head-Hx of c yst in that area Encounter Details Date Type Department Care Team Description 10/15/2021 Office Visit [facility] Hubbard, Slime, Abscess of neck Urgent Care Thi mendiola PA-C (Primary Dx) [address] [facility] [phone] [address] [phone] [place] [address] Social History Tobacco Use Types Packs/Day Years [...] at Date Recorded 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 documented as of this encounter Last Filed Vital Signs Vital Sign Reading Time Taken Comments Blood Pressure 118/72 10/15/2021 2:24 PM CDT Pulse 107 10/15/2021 2:24 PM CDT Temperature 37.2 ??C (99 ??F) 10/15/2021 2:24 PM CDT Respiratory Rate 20 10/15/2021 2:24 PM CDT Oxygen Saturation 99% 10/15/2021 2:24 PM CDT Inhaled Oxygen Concentration - - Weight - - Height - - Body Mass Index - - documented in this encounter Patient Instructions Patient InstructionsSlime Hubbard PA-C - 10/15/2021 2:30 PM CDT Patient was educated on the natural course of condition. Conservative measures discussed including warm compresses, and gmct-xeg-wkuzuax analgesics (Tylenol or Ibuprofen). Keep wound clean and dry. Seeyour primary care provider if symptoms worsen or do not improve in 7 days. Seek emergency care if you develop fever, severe swelling, or increased redness. documented in this encounter Progress Notes Slime Hubbard PA-C - 10/15/2021 2:30 PM CDT URGENT CARE VISIT: SUBJECTIVE: Tamiko Méndez is a 40 year old female who presents to the clinic with an abscess located on back [facility] that started 1 day(s) ago. Associated symptoms include erythema, fluctuance and pain. Denies fever, chills and drainage. Symptoms have been worsening since onset. Treatments tried include none with no relief of symptoms. OBJECTIVE: The patient appears today in alert,no apparent distress distress VITALS: BP 118/72 Pulse 107 Temp 99 ??F (37.2 ??C) (Oral) Resp 20 SpO2 99% No General: WDWN in NAD Musculoskeletal: moderate ttp over posterior cervical Skin: Erythematous, non-fluctuant nodule is visualized over posterior neck. It is 3 cm in size. Neurology: Sensation to light touch intact No images are attached to the encounter. ASSESSMENT: ICD-10-CM 1. Abscess of neck L02.11 cefdinir (OMNICEF) 300 MG capsule PLAN: Patient Instructions Patient was educated on the natural course of condition. Not ready for I & D as it is still diffuse without raised center. Conservative measures discussed including warm compresses, and mabj-djx-iwdooyw analgesics (Tylenol or Ibuprofen). Keep wound clean and dry. See your primary care provider if symptoms worsen or do not improve in 7 days. Seek emergency care if you develop fever, severe swelling, or increased redness. Slime Hubbard PA-C .................... 10/15/2021 3:32 PM documented in this encounter Plan of Treatment Upcoming Encounters Date Type Specialty Care Team Description 04/04/2022 Office Visit parachute manufacturing supervisor Kaela Dubois APRN [facility] [address] [place] [address] (Wo rk) 04/23/2022 Virtual Visit Endocrinology Lottie Cedillo , [facility] [address] [place], [place] [phone] (Wo rk) documented as of this encounter Visit Diagnoses Diagnosis Abscess of neck - Primary Cellulitis and abscess of neck documented in this encounter Additional Health Concerns Assessment Noted Time PHQ-9 Depression Total Score: 7 10/02/2021 2:13 PM CDT documented as of this encounter Care Teams Roofer Metal Relationship Specialty Start Date End Date Nelda Peña, PCP - General Nurse Practitioner 02/02/18 [facility] [address] [facility] [address] [place], [place] [phone] Jose Lopez OD MD Optometry 03/04/18 Jillian Dubois Nurse Practitioner Nurse Practitioner 08/17/18 SHAW Infante [facility] [address] [place] [address] Nawaf Morocho MD Dermatology 04/24/20 [facility] [address] [facility] 98 [place] [address] Lottie Cedillo, Assigned Endocrinology 06/14/20 PA-C Provider [address] [place] [address] Azeem Lindsey, Assigned Behavioral 06/18/20 [facility] Health Provider [address] [place], [place] [address] Jillian Dubois Assigned OBGYN Provider 01/28/21 SAHW Infante CNP [facility] [address] [place], [place] [address] Nawaf Morocho, Assigned Surgical 04/29/21 MD Provider [facility] [address] [facility] [address] [place] [address] Nelda Peña, Assigned PCP 10/06/21 AGRICULTURAL ECONOMICS PROFESSOR HARVEST FIELD TICKETER [address] [facility] [address] [place], [place] [phone] documented as of this encounter
--- OUTSIDE RECORDS SUMMARY | 2022-02-19 14:23 | XMS_ITS | Encounter Summary ---
:1980 Author Organization [place] Address [facility] [place] [address] Care Team Providers Name Role Phone Nelda Peña APRN [facility] Primary Care Provider [phone] Jose Lopez OD Unavailable Jillian Dubois APRN RADIATOR MECHANIC Unavailable [phone] Nawaf Morocho MD Unavailable Lottie Cedillo-Robert Unavailable Azeem Lindsey APRN RADIATOR MECHANIC Unavailable [phone] Jillian Dubois APRN RADIATOR MECHANIC Unavailable [phone] Nawaf Morocho MD Unavailable Nelda Peña APRN RADIATOR MECHANIC Unavailable [phone] Encounter Details Date Type Department Care Team Description 10/19/2021 Travel Social History Tobacco Use Types Packs/Day [...] at Date Recorded Female 05/08/2020 12:57 PM DATA ENTRY COVID-19 Exposure Response Date Recorded In the last 10 days, have you been in contact with No / Unsu re 10/19/2021 11:50 AM CDT someone who was confirmed or suspected to have Coronavirus/COVID-19? documented as of this encounter Plan of Treatment Upcoming Encounters Date Type Specialty Care Team Description 04/04/2022 Office Visit gastroenterology physician Kaela Dubois APRN RADIATOR MECHANIC [facility] [address] [place], [place] [address] (Wo rk) 04/23/2022 Virtual Visit Endocrinology Lottie Cedillo PA-C [address] [place], [place] [address] (Wo rk) documented as of this encounter Visit Diagnoses Not on filedocumented in this encounter Additional Health Concerns Assessment Noted Time PHQ-9 Depression Total Score: 7 10/02/2021 2:13 PM CDT documented as of this encounter Care Teams Tree Trimmer Relationship Specialty Start Date End Date Nelda Peña, PCP - General Nurse Practitioner 02/02/18 PRN PHYSICAL THERAPIST RADIATOR MECHANIC [address] [facility] [address] [place] [address] Jose Lopez OD MD Optometry 03/04/18 Jillian Dubois Nurse Practitioner Nurse Practitioner 08/17/18 SHAW Infante [facility] [address] [place] [phone] Nawaf Morocho, Dermatology 04/24/[address] [address] Lottie Cedillo, Assigned Endocrinology 06/14/20 PA-C Provider [address] [place], [place] [phone] Azeem Lindsey, Assigned Behavioral 06/18/20 On license of [facility] Provider [address] [place], [place] [phone] Jillian Dubois Assigned OBGYN Provider 01/28/21 SHAW Infante [facility] [address] [place] [phone] Nawaf Morocho, Assigned Surgical 04/29/[address] [phone] Nelda Peña, Assigned PCP 10/06/[address] [place], [place] [phone] documented as of this encounter
--- OUTSIDE RECORDS SUMMARY | 2022-02-19 14:23 | XMS_ITS | Encounter Summary ---
:1980 Author Organization [place] Address [facility]ly [facility] [place] [address] Care Team Providers Name Role Phone Nelda Peña APRN SIGNAL TESTER Primary Care Provider [phone] Jose Lopez OD Unavailable Jillian Dubois APRN SIGNAL TESTER Unavailable [phone] Nawaf Morocho MD Unavailable Lottie Cedillo-C Unavailable Azeem Lindsey APRN SIGNAL TESTER Unavailable [phone] Jillian Dubois APRN SIGNAL TESTER Unavailable [phone] Nawaf Morocho MD Unavailable Nelda Peña APRN SIGNAL TESTER Unavailable [phone] Reason for Visit Reason Onset Date Comments Appointment 10/24/2021 Checkout 04/25/21 Encounter Details Date Type Department Care Team Description 10/24/2021 Telephone [facility] Nawaf Morocho ent (Checkout Dermatology Clinic MD Jay 04/25/21) [address] 3[address] [place] [address] [phone] (Maryjane pa) Social History Tobacco Use Types [...] at Date Recorded Female 05/08/2020 12:57 PM [place] COVID-19 Exposure Response Date Recorded In the last 10 days, have you been in contact with No / Unsu re 10/19/2021 11:50 AM CDT someone who was confirmed or suspected to have Coronavirus/COVID-19? documented as of this encounter Miscellaneous Notes Telephone Encounter - Erna Samson - 10/24/2021 10:24 AM CDT Attempted call to patient to schedule follow up in the Dermatology Clinic per Dr Morocho last visit on04/25/21 checkout comment dispositions. Left message with clinic number and send mychart. Schedule follow up in [address] Morocho. documented in this encounter Plan of Treatment Upcoming Encounters Date Type Specialty Care Team Description 04/04/2022 Office Visit reach lift truck driver Kaela Dubois APRN [facility] [address] [place], [place] [address] (Maryjane pa) 04/23/2022 Virtual Visit Endocrinology Lottie Cedillo , ERROL [address] [place] [address] (Wo rk) documented as of this encounter Visit Diagnoses Not on filedocumented in this encounter Additional Health Concerns Assessment Noted Time PHQ-9 Depression Total Score: 7 10/02/2021 2:13 PM CDT documented as of this encounter Care Teams Service Desk Lead Relationship Specialty Start Date End Date Nelda Peña, PCP - General Nurse Practitioner 02/02/18 [facility] [address] [facility] [address] [place] [address] Jose Lopez, SHELL MD Optometry 03/04/18 Jillian Dubois Nurse Practitioner Nurse Practitioner 08/17/18 SHAW Infante [facility] [address] [place] [address] [phone] Nawaf Morocho MD Dermatology 04/24/20 [facility] [address] [facility] 98 [place], [place] [address] Lottie Cedillo, Assigned Endocrinology 06/14/20 PA-C Provider [address] [place] [address] Azeem Lindsey, Assigned Behavioral 06/18/20 [facility] Provider [address] [place], [place] [address] Jillian Dubois Assigned OBGYN Provider 01/28/21 SHAW Infante [facility] [address] [place] [address] [phone] Nawaf Morocho, Assigned Surgical 04/29/21 MD Provider [facility] [address] [facility] 98 [place] [address] Nelda Peña, Assigned PCP 10/06/21 OXYGEN TANK FILLER SIGNAL TESTER [address] [facility] [address] [place] [address] documented as of this encounter
--- OUTSIDE RECORDS SUMMARY | 2022-02-19 14:24 | XMS_ITS | Encounter Summary ---
:1980 Author Organization [place] Address [facility] [place] [address] Care Team Providers Name Role Phone Nelda Peña APRN [employer] Primary Care Provider Jose Lopez OD Unavailable Jillian Dubois APRN [employer] Unavailable [phone] Nelda Peña APRN [employer] Unavailable [phone] Nawaf Morocho MD Unavailable Lottie Cedillo PA-C Unavailable Azeem Lindsey ZONE SUPERVISOR FIREARMS [employer] Unavailable [phone] Teodoro Joaquin MD Unavailable [phone] Jillian Dubois APRN [employer] Unavailable [phone] Encounter Details Date Type Department Care Team Description 02/12/2021 Travel Social History Tobacco Use Types Packs/Day [...] at Date Recorded Female 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 documented as of this encounter Plan of Treatment Upcoming Encounters Date Type Specialty Care Team Description 04/04/2022 Office Visit title officer Kaela Dubois APRN [employer] [facility] [address] [place] [phone] (Wo rk) 04/23/2022 Virtual Visit Endocrinology Lottie Cedillo PA-C [address] [place], [place] [address] (Wo rk) documented as of this encounter Visit Diagnoses Not on filedocumented in this encounter Additional Health Concerns Assessment Noted Time PHQ-9 Depression Total Score: 0 04/06/2019 1:16 PM CHIP MIXING MACHINE OPERATOR documented as of this encounter Care Teams Supervisor Telephone Clerks Relationship Specialty Start Date End Date Nelda Peña, PCP - General Nurse Practitioner 02/02/18 ZONE SUPERVISOR FIREARMS [facility] 420 [facility] 741 [place], [place] [address] Jose Lopez OD MD Optometry 03/04/18 Jillian Dubois Nurse Practitioner Nurse Practitioner 08/17/18 SHAW Infante [facility] [address] [place] [address] Nelda Peña, Assigned PCP 03/12/20 03/03/21 ZONE SUPERVISOR FIREARMS [facility] [address] [facility] 741 [place] [address] Nawaf Morocho MD Dermatology 04/24/20 [facility] 516 [facility] [place] 98 [place], [place] [phone] Lottie Cedillo, Assigned Endocrinology 06/14/20 PA-C Provider [address] [place] [address] Azeem Lindsey, Assigned Behavioral 06/18/20 [facility] Provider [address] [place] [address] Liz Kirkland, Assigned Surgical 12/10/20 MD Teodoro Provider [address] [place] [address] Jillian Dubois Assigned OBGYN Provider 01/28/21 SHAW Infante [facility] [address] [place] [phone] documented as of this encounter
--- OUTSIDE RECORDS SUMMARY | 2022-02-19 14:24 | XMS_ITS | Encounter Summary ---
:1980 Author Organization [place] Address [facility] [place] [address] Care Team Providers Name Role Phone JonoamericaNelda ASSEMBLER CRIMPER SUPERVISOR ASSEMBLY ROOM Primary Care Provider Jose Lopez OD Unavailable Jillian Dubois APRN SUPERVISOR ASSEMBLY ROOM Unavailable [phone] Nawaf Morocho MD Unavailable Lottie Cedillo-C Unavailable Azeem Lindsey APRN SUPERVISOR ASSEMBLY ROOM Unavailable [phone] Jillian Dubois ASSEMBLER CRIMPER SUPERVISOR ASSEMBLY ROOM Unavailable [phone] Nwaaf Morocho MD Unavailable Mynor Barry MD Unavailable Encounter Details Date Type Department Care Team Description 10/02/2021 Travel Social History Tobacco Use Types Packs/Day [...] at Date Recorded Female 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 documented as of this encounter Plan of Treatment Upcoming Encounters Date Type Specialty Care Team Description 04/04/2022 Office Visit scallop cutter Kaela Dubois APRN CNP [facility] [address] [place], [place] [address] (Wo rk) 04/23/2022 Virtual Visit Endocrinology Lottie Cedillo PA-C [address] [place], [place] [address] (Wo rk) documented as of this encounter Visit Diagnoses Not on filedocumented in this encounter Additional Health Concerns Assessment Noted Time PHQ-9 Depression Total Score: 7 10/02/2021 2:13 PM CDT documented as of this encounter Care Teams Principal Network Engineer Relationship Specialty Start Date End Date Nelda Peña, PCP - General Nurse Practitioner 02/02/18 SHAW SUPERVISOR ASSEMBLY ROOM 420 [facility] 741 [place], [place] [address] Jose Lopez OD MD Optometry 03/04/18 Jillian Dubois Nurse Practitioner Nurse Practitioner 08/17/18 Arelis, ASSEMBLER CRIMPER [facility] 606 [address], [place] [address] Nawaf Morocho MD Dermatology 04/24/[address] [phone] Lottie Cedillo, Assigned Endocrinology 06/14/20 PA-C Provider [address] [place], [place] [address] Azeem Lindsey, Assigned Behavioral 06/18/20 [facility] Provider [address] [place], [place] [address] Jillian Dubois Assigned OBGYN Provider 01/28/21 SHAW Infante [facility] [address] [place] [address] Nawaf Morocho, Assigned Surgical 04/29/[address] [phone] Mynor Barry, Assigned PCP 09/01/21 10/05/21 MD Caroline [place], [place] [address] documented as of this encounter
--- OUTSIDE RECORDS SUMMARY | 2022-02-19 14:24 | XMS_ITS | Encounter Summary ---
:1980 Author Organization [place] Address [address] [facility] [place] [address] Care Team Providers Name Role Phone Nelda Peña APRN RAILROAD PASSENGER AGENT Primary Care Provider [phone] Jose Lopez OD Unavailable Jillian Dubois APRN RAILROAD PASSENGER AGENT Unavailable [phone] Nelda Peña APRN RAILROAD PASSENGER AGENT Unavailable [phone] Nawaf Morocho MD Unavailable Lottie Cedillo PA-C Unavailable Azeem Lindsey APRN RAILROAD PASSENGER AGENT Unavailable [phone] Teodoro Joaquin MD Unavailable [phone] Jillian Dubois APRN RAILROAD PASSENGER AGENT Unavailable [phone] Encounter Details Date Type Department Care Team Description 02/12/2021 [facility], Encounter for Procedure [facility] Jillian Ifnante, screening mammogram [facility] for breast cancer [address] [place] [address], [address] SPECIALISTS [place], [place] [address] [address] [place], [place] [phone] Social History Tobacco Use Types Packs/Day Years [...] at Date Recorded Female 05/08/2020 12:57 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 documented as of this encounter Plan of Treatment Upcoming Encounters Date Type Specialty Care Team Description 04/04/2022 Office Visit mail room Kaela Dubois [facility]N [facility] [address] [place], [place] [address] (Wo rk) 04/23/2022 Virtual Visit Endocrinology Lottie Cedillo PA-C [address] [place] [address] (Wo rk) documented as of this encounter Procedures Procedure Name Priority Date/Time Associated Diagnosis Comme nts MA SCREENING Routine 02/12/2021 3:28 PM Encounter for Results for this DIGITAL BILATERAL MARINE OIL TERMINAL SUPERINTENDENT screening mammogram pro cedure are in for breast cancer the result s section. documented in this encounter Results MA Screening Digital Bilateral (02/12/2021 3:28 PM MARINE OIL TERMINAL SUPERINTENDENT) Anatomical Region Laterality Modality Breast Bilateral Mammography Specimen (Source) Anatomical Location Collection Method / Collectio n Time Received Time / Laterality Volume Narrative 02/13/2021 1:49 PM MARINE OIL TERMINAL SUPERINTENDENT BILATERAL FULL FIELD DIGITAL SCREENING MAMMOGRAM Performed on: 02/12/21 No comparisons were made when reading th is study. Technique: This study was evaluated with the assistance of Computer-Aided Detection. Findings: The breasts are heterogeneousl y dense, which may obscure small masses. ??There is no radiographic evide nce of malignancy. IMPRESSION: ACR BI-RADS Category 1: Nega tive RECOMMENDED FOLLOW-UP: Annual routine sc reening mammogram The results and recommendations of this examination will be communicated to the patient. I have personally reviewed the examinati on and initial interpretation and I agree with the findings. Jillian Dubois APRN, CNP IMG MAMMOGRAPHY ORDER AVEL documented in this encounter Visit Diagnoses Diagnosis Encounter for screening mammogram for br east cancer documented in this encounter Additional Health Concerns Assessment Noted Time PHQ-9 Depression Total Score: 0 04/06/2019 1:16 PM MARINE OIL TERMINAL SUPERINTENDENT documented as of this encounter Care Teams Car Barn Laborer Relationship Specialty Start Date End Date Nelda Peña, PCP - General Nurse Practitioner 02/02/18 [facility] 420 [facility] [address] [place] [address] [phone] Jose Lopez OD MD Optometry 03/04/18 Jillian Dubois Nurse Practitioner Nurse Practitioner 08/17/18 SHAW Infante CNP [facility] [address] [place], [place] [address] Nelda Peña, Assigned PCP 03/12/20 03/03/21 SHAW RAILROAD PASSENGER AGENT 420 [facility] [address] [place] [address] Nawaf Morocho MD Dermatology 04/24/[address] [facility] [address] [place], [place] [address] Lottie Cedillo, Assigned Endocrinology 06/14/20 PA-C Provider [address] [place] [phone] Azeem Lindsey, Assigned Behavioral 06/18/20 SHAW [facility] Provider [facility] [place], [place] [phone] Liz Kirkland, Assigned Surgical 12/10/20 MD Teodoro Provider [address] [place] [address] Jillian Dubois Assigned OBGYN Provider 01/28/21 SHAW Infante [facility] [address] [place] [phone] documented as of this encounter
--- OUTSIDE RECORDS SUMMARY | 2022-02-19 14:24 | XMS_ITS | Encounter Summary ---
:1980 Author Organization [place] Address [facility] [place] [address] Care Team Providers Name Role Phone Nelda Peña APRN HAND SLITTER Primary Care Provider [phone] Jose Lopez OD Unavailable Jillian Dubois APRN HAND SLITTER Unavailable [phone] Nelda Peña APRN HAND SLITTER Unavailable [phone] Nawaf Morocho MD Unavailable Lottie Cedillo PA-C Unavailable Azeem Lindsey INVESTIGATION MANAGER HAND SLITTER Unavailable [phone] Teodoro Joaquin MD Unavailable [phone] Jillian Dubois APRN HAND SLITTER Unavailable [phone] Encounter Details Date Type Department Care Team Description 02/08/2021 Travel Social History Tobacco Use Types Packs/Day [...] at Date Recorded Female 05/08/2020 12:57 PM DETECTIVE 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 documented as of this encounter Plan of Treatment Upcoming Encounters Date Type Specialty Care Team Description 04/04/2022 Office Visit line out man Kaela Dubois APRN HAND SLITTER [facility] [address] [place] [phone] (Wo rk) 04/23/2022 Virtual Visit Endocrinology Lottie Cedillo PA-C [address] [place], [place] [address] (Wo rk) documented as of this encounter Visit Diagnoses Not on filedocumented in this encounter Additional Health Concerns Assessment Noted Time PHQ-9 Depression Total Score: 0 04/06/2019 1:16 PM DETECTIVE HOMICIDE SQUAD documented as of this encounter Care Teams String Winding Machine Operator Relationship Specialty Start Date End Date Nelda Peña, PCP - General Nurse Practitioner 02/02/18 INVESTIGATION MANAGER HAND SLITTER 420 [facility] 741 [place], [place] [address] Jose Lopez OD MD Optometry 03/04/18 Jillian Dubois Nurse Practitioner Nurse Practitioner 08/17/18 SHWA Infante [facility] [address] [place] [address] Nelda Peña, Assigned PCP 03/12/20 03/03/21 INVESTIGATION MANAGER [facility] 420 [facility] [address] [place] [address] Nawaf Morocho MD Dermatology 04/24/20 [facility] 516 [facility] 98 [place], [place] [phone] Lottie Cedillo, Assigned Endocrinology 06/14/20 PA-C Provider [address] [place] [address] Azeem Lindsey, Assigned Behavioral 06/18/20 [facility] Provider [address] [place] [address] Liz Kirkland, Assigned Surgical 12/10/20 MD Teodoro Provider [address] [place] [address] Jillian Dubois Assigned OBGYN Provider 01/28/21 SHAW Infante [facility] [address] [place] [phone] documented as of this encounter
--- OUTSIDE RECORDS SUMMARY | 2022-02-19 14:24 | XMS_ITS | Encounter Summary ---
:1980 Author Organization [place] Address [facility] [place] [address] Care Team Providers Name Role Phone Nelda Peña AUTOMOTIVE ENGINEERING TEACHER UX INTERACTION DESIGNER Primary Care Provider Jose Lopez OD Unavailable Jillian Dubois APRN UX INTERACTION DESIGNER Unavailable [phone] Nelda Peña APRN UX INTERACTION DESIGNER Unavailable [phone] Nawaf Morocho MD Unavailable Lottie Cedillo-Robert Unavailable Azeem Lindsey AUTOMOTIVE ENGINEERING TEACHER UX INTERACTION DESIGNER Unavailable [phone] Teodoro Joaquin MD Unavailable [phone] Jillian Dubois APRN UX INTERACTION DESIGNER Unavailable [phone] Reason for Referral Diagnostic Imaging Ultrasound (Routine) - Closed Specialty Diagnoses / Procedures Referred By Contact Refer red To Contact Diagnoses Cystic hygroma of neck Mynor Barry MD Procedures US Head Neck Soft Tissue [address] [place] [address] Referral ID Status Reason Start Date Expiration Date Visits Requ ested Visits Authorized [id number] Closed 02/08/2021 02/08/2022 1 1 OFFICE MEDICAL ASSISTANT Reason for Visit Reason Onset Date Comments Derm Problem Neck Problem Urgent Care Imm/Inj 02/08/2021 Flu Shot Encounter Details Date Type Department Care Team Description 02/08/[address] [facility] Mynor Barry Cystic hygroma of neck (Primary Dx); Clinic Eze Swann MD Infected epidermoid cyst; [address] Type 1 diabet es mellitus with complications (H); [place] [facility] Need for prophylactic vaccination [place] [address] [phone] Social History Tobacco Use Types Packs/Day Years [...] at Date Recorded Female 05/08/2020 12:57 PM BACK OFFICE MEDICAL ASSISTANT COVID-19 Exposure Response Date Recorded In the last month, have you been in contact with No / Unsure 02/08/2021 9:41 AM BACK OFFICE MEDICAL ASSISTANT someone who was confirmed or suspected to have Coronavirus / COVID-19? documented as of this encounter Last Filed Vital Signs Vital Sign Reading Time Taken Comments Blood Pressure 130/74 02/08/2021 9:55 AM BACK OFFICE MEDICAL ASSISTANT Pulse 110 02/08/2021 9:55 AM BACK OFFICE MEDICAL ASSISTANT Temperature 36.4 ??C (97.6 ??F) 02/08/2021 9:55 AM BACK OFFICE MEDICAL ASSISTANT Respiratory Rate - - Oxygen Saturation 97% 02/08/2021 9:55 AM BACK OFFICE MEDICAL ASSISTANT Inhaled Oxygen Concentration - - Weight 107.5 kg (237 lb) 02/08/2021 9:55 AM BACK OFFICE MEDICAL ASSISTANT Height 157.5 cm (5' 2) 02/08/2021 9:55 AM BACK OFFICE MEDICAL ASSISTANT Body Mass Index 43.35 02/08/2021 9:55 AM BACK OFFICE MEDICAL ASSISTANT documented in this encounter Patient Instructions Patient InstructionsMynor Barry MD - 02/08/2021 10:00 AM CST Call if persistent redness, hardening of the skin after antibiotic finished. 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 BMI: Estimated body mass index is 43.35 kg/m?? as calculated from the following: Height as of this encounter: 1.575 m (5' 2). Weight as of this encounter: 107.5 kg (237 lb). See Patient Instructions Return in about 1 week (around 02/15/2021) for follow up on acute problem if persists. Mynor Barry MD [facility] EZE Hernández is a 40 year old who presents for the following health issues HPI ED/UC Followup: Facility: [facility] Date of visit: 02-02-2021 Reason for visit: cyst neck Patient is seen for a follow up visit. Seen in UC 02/02 for infected neck cyst. Had I&D and small amount of pus was evacuated. Currently the wound has closed, packing removed. She is on Bactrim. Symptoms of pain have subsided. Still feels hardening in the area of the cyst. No fever, chills. Has history of DM. On insulin treatment. Not well controlled sugars with last HgbA1C of 10. Seeing endocrinology. Review of Systems Constitutional, HEENT, cardiovascular, pulmonary, gi and gu systems are negative, except as otherwise noted. Objective LMP (LMP Unknown) There is no height or weight on file to calculate BMI. Physical Exam GENERAL: healthy, alert and no distress NECK: no adenopathy, no asymmetry, masses, or scars and thyroid normal to palpation Posterior neck area of skin induration, possible subcutaneous lipoma. Incision in the lower neck is healed, skin is with erythema and is hard to palpation , no drainage MS: no gross musculoskeletal defects noted, no edema Office Visit on 01/18/2021 Component Date Value Ref Range Status ??? Interpretation 01/18/2021 Negative for Intraepithelial Lesion or Malignancy (NILM) Final ??? Specimen Adequacy 01/18/2021 Satisfactory for evaluation, endocervical/transformation zone component absent Final ??? Clinical Information 01/18/2021 Final Value:This result contains rich text formatting which cannot be displayed here. ??? HPV Reflex 01/18/2021 Yes regardless of result Final ??? Previous Abnormal? 01/18/2021 Final Value:This result contains rich text formatting which cannot be displayed here. ??? Performing Labs 01/18/2021 Final Value:This result contains rich text formatting which cannot be displayed here. ??? Other HR HPV 01/18/2021 Negative Negative Final ??? HPV16 DNA 01/18/2021 Negative Negative Final ??? HPV18 DNA 01/18/2021 Negative Negative Final ??? FINAL DIAGNOSIS 01/18/2021 Final Value:This result contains rich text formatting which cannot be displayed here. OFFICE MEDICAL ASSISTANT documented in this encounter Miscellaneous Notes Addendum Note - Fauzia Lisa LPN - 02/08/2021 10:00 AM BACK OFFICE MEDICAL ASSISTANT Addended by: FAUZIA LISA on: 02/08/2021 10:45 AM Modules accepted: Orders, SmartSet OFFICE MEDICAL ASSISTANT documented in this encounter Plan of Treatment Upcoming Encounters Date Type Specialty Care Team Description 04/04/2022 Office Visit records management manager Kaela Dubois APRN [facility] [address] [place] [address] (Wo rk) 04/23/2022 Virtual Visit Endocrinology Lottie Cedillo PA-C [address] [place], [place] [address] (Wo rk) documented as of this encounter Results US Head Neck Soft Tissue (02/13/2021 3:57 PM BACK OFFICE MEDICAL ASSISTANT) Anatomical Region Laterality Modality Head Ultrasound Specimen (Source) Anatomical Location Collection Method / Collectio n Time Received Time / Laterality Volume Impressions 02/13/2021 4:13 PM BACK OFFICE MEDICAL ASSISTANT IMPRESSION: ??Possible tiny residual fluid collection measuring 5 mm in the posterior neck. This may simply repr esent heterogeneous echogenicity in this region. THOMAS ASHLEY MD Narrative 02/13/2021 4:13 PM BACK OFFICE MEDICAL ASSISTANT ULTRASOUND HEAD AND NECK SOFT TISSUE ??02/13/2021 3:57 PM HISTORY: Cystic hygroma of neck. COMPARISON: None. FINDINGS: ??Hypoechoic nodule in the pos terior neck measuring 5 x 5 x 4 mm, question minimal residual fluid. The re is no evidence for cervical adenopathy bilaterally by size or morpho logy. Mild subcutaneous emphysema noted. Procedure Note Thomas Ashley MD - 02/13/2021Fo rmatting of this note might be different from the original. ULTRASOUND HEAD AND NECK SOFT TISSUE 3:57 PM HISTORY: Cystic hygroma of neck. COMPARISON: None. FINDINGS: Hypoechoic nodule in the poste rior neck measuring 5 x 5 x 4 mm, question minimal residual fluid. The re is no evidence for cervical adenopathy bilaterally by size or morpho logy. Mild subcutaneous emphysema noted. IMPRESSION: Possible tiny residual fluid collection measuring 5 mm in the posterior neck. This may simply repr esent heterogeneous echogenicity in this region. THOMAS ASHLEY MD Mynor Barry MD IMG ORDERABLES documented in this encounter Visit Diagnoses Diagnosis Cystic hygroma of neck - Primary Infected epidermoid cyst Sebaceous cyst Type 1 diabetes mellitus with complicati ons (H) Need for prophylactic vaccination and in oculation against influenza Cystic hygroma of neck documented in this encounter Additional Health Concerns Assessment Noted Time PHQ-9 Depression Total Score: 0 04/06/2019 1:16 PM BACK OFFICE MEDICAL ASSISTANT documented as of this encounter Care Teams Food Service Substitute Relationship Specialty Start Date End Date Nelda Peña, PCP - General Nurse Practitioner 02/02/18 AUTOMOTIVE ENGINEERING TEACHER [facility] [address] [facility] [address] [place], [place] [address] Jose Lopez OD MD Optometry 03/04/18 Jillian Dubois Nurse Practitioner Nurse Practitioner 08/17/18 SHAW Infante [facility] [address] [place] [address] Nelda Peña, Assigned PCP 03/12/20 03/03/21 AUTOMOTIVE ENGINEERING [facility] [address] [facility] [address] [place], [place] [address] Nawaf Morocho MD Dermatology 04/24/20 [facility] 516 [facility] [address] [place] [address] Lottie Cedillo, Assigned Endocrinology 06/14/20 PA-C Provider [address] [place] [address] Azeem Lindsey, Assigned Behavioral 06/18/20 AUTOMOTIVE ENGINEERING TEACHER [facility] Health Provider [address] [place], [place] [address] Liz Kirkland, Assigned Surgical 12/10/20 MD Teodoro Provider [address] [place] [address] Jillian Dubois Assigned OBGYN Provider 01/28/21 SHAW Infante [facility] [address] [place] [address] documented as of this encounter
--- OUTSIDE RECORDS SUMMARY | 2022-02-19 14:24 | XMS_ITS | Encounter Summary ---
:1980 Author Organization [place] Address [facility] [place] [address] Care Team Providers Name Role Phone Casey Nelda Roy DEHYDROGENATION CONVERTER HELPER MEDICAL APPARATUS MODEL MAKER Primary Care Provider [phone] Jose Lopez OD Unavailable Jillian Dubois APRN MEDICAL APPARATUS MODEL MAKER Unavailable [phone] Nawaf Morocho MD Unavailable Lottie Cedillo-Robert Unavailable Azeem Lindsey APRN MEDICAL APPARATUS MODEL MAKER Unavailable [phone] Jillian Dubois DEHYDROGENATION CONVERTER HELPER MEDICAL APPARATUS MODEL MAKER Unavailable [phone] Nawaf Morocho MD Unavailable Mynor Barry MD Unavailable Encounter Details Date Type Department Care Team Description 09/25/2021 [facility] Typ e 1 diabetes mellitus with complications (H); [facility] or Class 3 severe obesity due t o excess calories with body mass index (BMI) of 40.0 to 44.9 in adult, unspecified whether serious comorbidity present (H) [id number] [place] [address] [phone] Social History Tobacco Use Types Packs/Day Years [...] at Date Recorded Female 05/08/2020 12:57 PM SOILS ENGINEER COVID-19 Exposure Response Date Recorded In the last 10 days, have you been in contact with No / Unsu re 09/25/2021 11:32 AM CDT someone who was confirmed or suspected to have Coronavirus/COVID-19? documented as of this encounter Plan of Treatment Upcoming Encounters Date Type Specialty Care Team Description 04/04/2022 Office Visit portable irrigation operator Kaela Dubois APRN [facility] [address] [place] [address] (Wo rk) 04/23/2022 Virtual Visit Endocrinology Lottie Cedillo PA-C [address] [place] [address] (Wo rk) documented as of this encounter Procedures Procedure Name Priority Date/Time Associated Diagnosis Comme nts ALBUMIN RANDOM URINE Routine 09/25/2021 12:10 Type 1 diabetes Results for this QUANTITATIVE PM CDT mellitus with procedure are in complications (H) the result s section. COMPREHENSIVE Routine 09/25/2021 11:38 Type 1 diabetes Results for this METABOLIC PANEL AM CDT mellitus with procedure a re in complications (H ) the results Class 3 severe section. obesity due to excess calories with body mass index (BMI) of 40.0 to 44.9 in adult, unspecified whether serious comorbidity present (H) documented in this encounter Results (ABNORMAL) Albumin Random Urine Quantitative with Creat Ratio (09/25/2021 12:10 PM CDT) [facility] Method Time Signature Creatinine 29 mg/dL 09/27/2021 [facility] Urine mg/dL 8:25 AM CDT Albumin Urine 10 mg/L 09/27/2021 [facility] mg/L 8:25 AM CDT Albumin Urine 34.48 (H) 0.00 - 09/27/2021 [facility] mg/g Cr 25.00 8:25 AM CDT mg/g Cr Specimen Anatomical Collection Method Collection Time Receive d Time (Source) Location / / Volume Laterality Urine URINE SPECIMEN / Non-blood 09/25/2021 12:10 022 Unknown Collection / PM CDT 12:11 PM CDT Unknown Lottie Cedillo PA-C LAB - URINE ORDERABLES Performing Organization Address City/State/ZIP Code Phon e Number [facility] [place], [place] [phone] [place] [facility] [phone] [place] [address] Lab (no room number, 1st floor of clinic) [facility] [place], [place] [phone] [facility] [address] Lab (no room number, 1st floor of clinic) (ABNORMAL) Comprehensive metabolic panel (09/25/2021 11:38 AM CDT) [facility] Method Time Signature Sodium 134 133 - 144 09/27/2021 [facility] mmol/L 9:34 AM CDT Potassium 4.8 3.4 - 5.3 09/27/2021 [facility] mmol/L 9:34 AM CDT Chloride 103 94 - 109 09/27/2021 [facility] mmol/L 9:34 AM CDT Carbon Dioxide 25 20 - 32 09/27/2021 [facility] (CO2) mmol/L 9:34 AM CDT Anion Gap 6 3 - 14 09/27/2021 [facility] mmol/L 9:34 AM CDT Urea Nitrogen 19 7 - 30 09/27/2021 [facility] mg/dL 9:34 AM CDT Creatinine 0.75 0.52 - 09/27/2021 [facility] 1.04 mg/dL 9:34 AM CDT Calcium 9.6 8.5 - 10.1 09/27/2021 [facility] mg/dL 9:34 AM CDT Glucose 384 (H) 70 - 99 09/27/2021 [facility] mg/dL 9:34 AM CDT Alkaline 81 40 - 150 09/27/2021 [facility] Phosphatase U/L 9:34 AM CDT AST 13 0 - 45 U/L 09/27/2021 [facility] 9:34 AM CDT ALT 15 0 - 50 U/L 09/27/2021 [facility] 9:34 AM CDT Protein Total 7.2 6.8 - 8.8 09/27/2021 [facility] g/dL 9:34 AM CDT Albumin 3.7 3.4 - 5.0 09/27/2021 [facility] g/dL 9:34 AM CDT Bilirubin Total 0.4 0.2 - 1.3 09/27/2021 [facility] mg/dL 9:34 AM CDT GFR Estimate >90 >60 09/27/2021 [facility] mL/min/1.7 9:34 AM CDT 3m2 Comment: Effective March 20, 2021 eGF Rcr in adults is calculated using the 2020 CKD-EPI creatinine equation which includ es age and gender (Job et al., NEJM, DOI: 10.1056/CSXChd0013938) Specimen Anatomical Collection Method / Collection Time Recei seng Time (Source) Location / Volume Laterality Blood STRUCTURE OF RIGHT Venipuncture / 09/25/2021 11:38 UPPER LIMB / Unknown AM CDT 11:38 AM CDT Unknown Lottie Cedillo PA-C LAB - BLOOD ORDERABLES Performing Organization Address City/State/ZIP Code Phon e Number [facility] [place], [place] [phone] [place] [facility] [phone] [place] [address] Lab (no room number, 1st floor of clinic) [facility] [place], [place] [phone] [facility] [phone] [address] Lab (no room number, 1st floor of clinic) documented in this encounter Visit Diagnoses Diagnosis Type 1 diabetes mellitus with complicati ons (H) Class 3 severe obesity due to excess shay ories with body mass index (BMI) of 40.0 to 44.9 in adult, unspecified whether terrance us comorbidity present (H) documented in this encounter Additional Health Concerns Assessment Noted Time PHQ-9 Depression Total Score: 0 04/06/2019 1:16 PM SOILS ENGINEER documented as of this encounter Care Teams Sheet Combining Operator Relationship Specialty Start Date End Date Nelda Peña, PCP - General Nurse Practitioner 02/02/[address] [place] [address] Jose Lopez, SHELL ARRIOLA Optometry 03/04/18 Jillian Dubois Nurse Practitioner Nurse Practitioner 08/17/18 SHAW Infante [facility] [address] [place] [id number] Nawaf Morocho MD Dermatology 04/24/20 [facility] 516 [facility] 98 [place], [place] [address] Lottie Cedillo, Assigned Endocrinology 06/14/20 PA-C Provider [address] [place] [address] Azeem Lindsey, Assigned Behavioral 06/18/20 [facility] Provider [address] [place] [address] Jillian Dubois Assigned OBGYN Provider 01/28/21 SHAW Infante [facility] [address] [place] [phone] Nawaf Morocho, Assigned Surgical 04/29/21 MD Provider [address] [place] [address] [address] Mynor Barry, Assigned PCP 09/01/21 10/05/21 [place] [address] documented as of this encounter
--- OUTSIDE RECORDS SUMMARY | 2022-02-19 14:24 | XMS_ITS | Encounter Summary ---
:1980 Author Organization [place] Address [facility] [place] [address] Care Team Providers Name Role Phone JonoamericaNelda SCHOOL LEADER PHOTOLETTERING MACHINE OPERATOR Primary Care Provider [phone] Jose Lopez OD Unavailable Jillian Dubois APRN PHOTOLETTERING MACHINE OPERATOR Unavailable [phone] Nawaf Morocho MD Unavailable Lottie Cedillo-C Unavailable Azeem Lindsey APRN PHOTOLETTERING MACHINE OPERATOR Unavailable [phone] Jillian Dubois SCHOOL LEADER PHOTOLETTERING MACHINE OPERATOR Unavailable [phone] Nawaf Morocho MD Unavailable Mynor Barry MD Unavailable Encounter Details Date Type Department Care Team Description 09/25/2021 Travel Social History Tobacco Use Types Packs/Day [...] at Date Recorded Female 05/08/2020 12:57 PM WHEAT AND OATS FLAKE MILLER COVID-19 Exposure Response Date Recorded In the last 10 days, have you been in contact with No / Unsu re 09/25/2021 11:32 AM CDT someone who was confirmed or suspected to have Coronavirus/COVID-19? documented as of this encounter Plan of Treatment Upcoming Encounters Date Type Specialty Care Team Description 04/04/2022 Office Visit sap enterprise portal consultant Kaela Dubois APRN [facility] [address] [place], [place] [address] (Wo rk) 04/23/2022 Virtual Visit Endocrinology Lottie Cedillo PA-C [address] [place], [place] [address] (Wo rk) documented as of this encounter Visit Diagnoses Not on filedocumented in this encounter Additional Health Concerns Assessment Noted Time PHQ-9 Depression Total Score: 0 04/06/2019 1:16 PM WHEAT AND OATS FLAKE MILLER documented as of this encounter Care Teams Purchasing Director Relationship Specialty Start Date End Date Nelda Peña, PCP - General Nurse Practitioner 02/02/18 SHAW DIAZ 420 [facility] [address] [place], [place] [address] Joes Lopez OD MD Optometry 03/04/18 Jillian Dubois Nurse Practitioner Nurse Practitioner 08/17/18 SHAW Infante CNP [facility] [address] [place] [address] Nawaf Morocho, Dermatology 04/24/[address] 3[address] Lottie Cedillo, Assigned Endocrinology 06/14/20 PA-C Provider [address] [place], [place] [address] Azeem Lindsey, Assigned Behavioral 06/18/20 [facility] Provider [address] [place], [place] [address] Jillian Dubois Assigned OBGYN Provider 01/28/21 SHAW Infante [facility] [address] [place] [id number] Nawaf Morocho, Assigned Surgical 04/29/[address] [address] Mynor Barry, Assigned PCP 09/01/21 10/05/21 MD Caroline [place], [place] [phone] documented as of this encounter
--- OUTSIDE RECORDS SUMMARY | 2022-02-19 14:24 | XMS_ITS | Encounter Summary ---
:1980 Author Organization [place] Address [facility] [place] [address] Care Team Providers Name Role Phone JonoamericaNelda PROCUREMENT ANALYST LOCAL AREA NETWORK ADMINISTRATOR Primary Care Provider [phone] Jose Lopez OD Unavailable Jillian Dubois APRN LOCAL AREA NETWORK ADMINISTRATOR Unavailable Nawaf Morocho MD Unavailable Lottie Cedillo-C Unavailable Azeem Lindsey APRN LOCAL AREA NETWORK ADMINISTRATOR Unavailable [phone] Jillian Dubois PROCUREMENT ANALYST LOCAL AREA NETWORK ADMINISTRATOR Unavailable [phone] Nawaf Morocho MD Unavailable Mynor Barry MD Unavailable Encounter Details Date Type Department Care Team Description 09/20/2021 Travel Social History Tobacco Use Types Packs/Day [...] at Date Recorded Female 05/08/2020 12:57 PM RESIDENTIAL SALES MANAGER COVID-19 Exposure Response Date Recorded In the last 10 days, have you been in contact with No / Unsu re 09/20/2021 3:31 PM CDT someone who was confirmed or suspected to have Coronavirus/COVID-19? documented as of this encounter Plan of Treatment Upcoming Encounters Date Type Specialty Care Team Description 04/04/2022 Office Visit material handler floorperson Kaela Dubois APRN [facility] [address] [place], [place] [address] (Wo rk) 04/23/2022 Virtual Visit Endocrinology Lottie Cedillo PA-C [address] [place], [place] [address] (Wo rk) documented as of this encounter Visit Diagnoses Not on filedocumented in this encounter Additional Health Concerns Assessment Noted Time PHQ-9 Depression Total Score: 0 04/06/2019 1:16 PM RESIDENTIAL SALES MANAGER documented as of this encounter Care Teams Fertilizer Processing Supervisor Relationship Specialty Start Date End Date Nelda Peña, PCP - General Nurse Practitioner 02/02/18 SHAW DIAZ 420 [facility] [address] [place], [place] [address] Jose Lopez OD MD Optometry 03/04/18 Jillian Dubois Nurse Practitioner Nurse Practitioner 08/17/18 SHAW Infante CNP [facility] [address] [place] [address] [phone] Nawaf Morocho, Dermatology 04/24/[address] [address] Lottie Cedillo, Assigned Endocrinology 06/14/20 PA-C Provider [address] [place], [place] [address] Azeem Lindsey, Assigned Behavioral 06/18/20 [facility] Provider [address] [place], [place] [address] Jillian Dubois Assigned OBGYN Provider 01/28/21 SHAW Infante [facility] [address] [place] [id number] Nawaf Morocho, Assigned Surgical 04/29/[address] [address] Mynor Barry, Assigned PCP 09/01/21 10/05/21 MD Caroline [place], [place] [phone] documented as of this encounter
--- OUTSIDE RECORDS SUMMARY | 2022-02-19 14:24 | XMS_ITS | Encounter Summary ---
:1980 Author Organization [place] Address [facility] [place] [address] Care Team Providers Name Role Phone Nelda Peña APRN WEBSPHERE PROCESS SERVER DEVELOPER Primary Care Provider [phone] Jose Lopez OD Unavailable Jillian Dubois APRN WEBSPHERE PROCESS SERVER DEVELOPER Unavailable [phone] Nelda Peña APRN WEBSPHERE PROCESS SERVER DEVELOPER Unavailable [phone] Nawaf Morocho MD Unavailable Lottie Cedillo PA-C Unavailable Azeem Lindsey BLANKET CUTTER HAND WEBSPHERE PROCESS SERVER DEVELOPER Unavailable [phone] Teodoro Joaquin MD Unavailable [phone] Jillian Dubois APRN WEBSPHERE PROCESS SERVER DEVELOPER Unavailable Encounter Details Date Type Department Care Team Description 02/02/2021 Travel Social History Tobacco Use Types Packs/Day [...] at Date Recorded Female 05/08/2020 12:57 PM BARLEY STEEPER COVID-19 Exposure Response Date Recorded In the last month, have you been in contact with No / Unsure 02/02/2021 10:49 AM CDT someone who was confirmed or suspected to have Coronavirus / COVID-19? documented as of this encounter Plan of Treatment Upcoming Encounters Date Type Specialty Care Team Description 04/04/2022 Office Visit fur repair inspector Kaela Dubois APRN WEBSPHERE PROCESS SERVER DEVELOPER [facility] [address] [place], [place] [address] (Wo rk) 04/23/2022 Virtual Visit Endocrinology Lottie Cedillo , LUIS [facility]LOS[facility] [address] [place], [place] [address] (Wo rk) documented as of this encounter Visit Diagnoses Not on filedocumented in this encounter Additional Health Concerns Assessment Noted Time PHQ-9 Depression Total Score: 0 04/06/2019 1:16 PM BARLEY STEEPER documented as of this encounter Care Teams Textile Designer Relationship Specialty Start Date End Date Nelda Peña, PCP - General Nurse Practitioner 02/02/18 BLANKET CUTTER HAND WEBSPHERE PROCESS SERVER DEVELOPER 420 [facility] 741 [place], [place] [address] Jose Lopez OD MD Optometry 03/04/18 Jillian Dubois Nurse Practitioner Nurse Practitioner 08/17/18 [facility] [address] [place] [address] Nelda Peña, Assigned PCP 03/12/20 03/03/21 BLANKET CUTTER HAND [facility] 420 [facility] 741 [place], [place] [address] Nawaf Morocho MD Dermatology 04/24/20 [facility] 516 [facility] 98 [place], [place] [phone] Lottie Cedillo, Assigned Endocrinology 06/14/20 PA-C Provider 9 [place] [address] Azeem Lindsey, Assigned Behavioral 06/18/20 [facility] Provider [address] [place] [address] Liz Kirkland, Assigned Surgical 12/10/20 MD Teodoro Provider [address] [place] [address] Jillian Dubois Assigned OBGYN Provider 01/28/21 [facility] [address] [place] [id number] documented as of this encounter
--- OUTSIDE RECORDS SUMMARY | 2022-02-19 14:24 | XMS_ITS | Encounter Summary ---
:1980 Author Organization [place] Address [facility] [place] [address] Care Team Providers Name Role Phone Nelda Peña ROD DRAWER IT PROJECT MANAGER Primary Care Provider [phone] Jose Lopez OD Unavailable Jillian Dubois ROD DRAWER IT PROJECT MANAGER Unavailable [phone] Nawaf Morocho MD Unavailable Lottie Cedillo-Robert Unavailable Azeem Lindsey APRN IT PROJECT MANAGER Unavailable [phone] Jillian Dubois ROD DRAWER IT PROJECT MANAGER Unavailable [phone] Nelda Peña APRN IT PROJECT MANAGER Unavailable [phone] Nawaf Morocho MD Unavailable Reason for Visit Reason Onset Date Comments Refill Request 05/04/2021 Encounter Details Date Type Department Care Team Description [facility] End[facility] Clinic [address] [phone] Social History Tobacco Use Types Packs/Day [...] at Date Recorded Female 05/08/2020 12:57 PM SERVICE GREETER COVID-19 Exposure Response Date Recorded In the last month, have you been in contact with No / Unsure 04/25/2021 1:34 PM SERVICE GREETER someone who was confirmed or suspected to have Coronavirus / COVID-19? documented as of this encounter Plan of Treatment Upcoming Encounters Date Type Specialty Care Team Description 04/04/2022 Office Visit personal computer specialist Kaela Dubois, SHAW IT PROJECT MANAGER [facility] [address] [place], [place] [address] (Wo rk) 04/23/2022 Virtual Visit Endocrinology Lottie Cedillo PA-C [address] [place] [address] (Wo rk) documented as of this encounter Visit Diagnoses Diagnosis Type 1 diabetes mellitus with complicati ons (H) documented in this encounter Additional Health Concerns Assessment Noted Time PHQ-9 Depression Total Score: 0 04/06/2019 1:16 PM SERVICE GREETER documented as of this encounter Care Teams Time Lock Expert Relationship Specialty Start Date End Date Nelda Peña, PCP - General Nurse Practitioner 02/02/18 ROD DRAWER IT PROJECT MANAGER 420 [facility] 741 [place], [place] [address] Jose Lopez OD MD Optometry 03/04/18 Jillian Dubois Nurse Practitioner Nurse Practitioner 08/17/18 [facility] [address] [place], [place] [address] Nawaf Morocho, Dermatology 04/24/[address] [address] Lottie Cedillo, Assigned Endocrinology 06/14/20 PA-C Provider [address] [place], [place] [address] Azeem Lindsey, Assigned Behavioral 06/18/20 [facility] [address] [place], [place] [address] Jillian Dubois Assigned OBGYN Provider 01/28/21 [facility] [address] [place] [address] Nelda Peña, Assigned PCP 04/08/21 08/31/21 ROD DRAWER IT PROJECT MANAGER 420 [facility] 741 [place], [place] [address] Nawaf Morocho, Assigned Surgical 04/29/21 MD Provider [address] [address] documented as of this encounter
--- OUTSIDE RECORDS SUMMARY | 2022-02-19 14:24 | XMS_ITS | Encounter Summary ---
:1980 Author Organization [place] Address [facility] [place] [address] Care Team Providers Name Role Phone Nelda Peña CORRUGATOR MACHINE OPERATOR ADULT SCHOOL COUNSELOR Primary Care Provider [phone] Jose Lopez OD Unavailable Jillian Dubois APRN ADULT SCHOOL COUNSELOR Unavailable [phone] Nawaf Morocho MD Unavailable Lottie Cedillo-Robert Unavailable Azeem Lindsey APRN ADULT SCHOOL COUNSELOR Unavailable [phone] Teodoro Joaquin MD Unavailable [phone] Jillian Dubois CORRUGATOR MACHINE OPERATOR ADULT SCHOOL COUNSELOR Unavailable [phone] Nelda Peña APRN ADULT SCHOOL COUNSELOR Unavailable [phone] Reason for Visit Reason Comments Derm Problem Betty would like a refill of her spironolactone and states that is has been working Encounter Details Date Type Department Care Team Description 04/25/2021 [facility] dermat[facility] of [facility]; Dermatology Clinic MD Jay Acne vulgaris [address] [address] [phone] Social History Tobacco Use Types Packs/Day Years [...] at Date Recorded Female 05/08/2020 12:57 PM QUALITY CONTROL INDUSTRIAL ENGINEER COVID-19 Exposure Response Date Recorded In the last month, have you been in contact with No / Unsure 04/25/2021 1:34 PM QUALITY CONTROL INDUSTRIAL ENGINEER someone who was confirmed or suspected to have Coronavirus / COVID-19? documented as of this encounter Progress Notes Nawaf Morocho MD - 04/25/2021 2:15 PM CST [facility] Dermatology Note Encounter Date: Apr 25, 2021 Office Visit Dermatology Problem List: 1.??Acne vulgaris??and folliculitis -Current tx:??spironolactone 100 mg daily -Previous tx:??clindamycin 1% solution BID??prn, tretinoin 0.025% cream 2. Hand dermatitis -betamethasone 0.05% ointment??BID under occlusion 3. Irritant dermatitis,??alar creases/nasolabial folds ??- likely secondary to retinoids - past treatment: hydrocortisone 2.5% cream??BID x 1-2 weeks until improved?? 4. Inflamed nevus, left flank area, resolved 5. Sclerodema - upper posterior back - monitor Assessment & Plan: # Indurated plaques, upper back. Suspect scleredema in setting of history of diabetes. Has prior hadcystic draining nodule in superior edge; suspect furuncle versus EIC s/p I&D, which is essentially resolved on exam today. Discussed etiology and lack of evidence-based treatments for scleredema. Given not bothersome to patient, she deferred treatment for now. # Acne vulgaris. Chronic, stable. Improved, stable. Mild degree of comedones in right nasolabial fold. Wants to continue spironolactone at same dose. Discussed option of adding topical clindamycin for comedones. She verbalized understanding and was in agreement. Plan as below. - Refill: spironolactone (ALDACTONE) 100 MG tablet daily - Start clindamycin (CLEOCIN T) 1 % external lotion daily PRN - Use benzoyl peroxide 1-2x per week. # Chronic b/l hand dermatitis, consistent with atopic/dyshidrotic eczema. Chronic, stable. Well controlled on current topical regimen. - augmented betamethasone dipropionate (DIPROLENE-AF) 0.05 % external cream Procedures Performed: None Follow-up: 1 year Staff and Scribe: Denisa Vázquez DO [facility] Resident Pager#[phone] Precepted with Dr. Rashawn Ortiz Disclosure: I, Tea Chance, am serving as a scribe to document services personally performed by Nawaf Morocho MD based on data collection and the provider's statements to me. Provider Disclosure: The documentation recorded by the scribe accurately reflects the services I personally performed andthe decisions made by me. Staff Physician Comments: I saw and evaluated the patient with the resident and I agree with the assessment and plan. I was present for the examination. Nawaf Morocho MD Pronouns: he/him/his 7Th Grade Social Studies Teacher Department of Dermatology [facility]: , [facility]: CC: Derm Problem (Betty would like a refill of her spironolactone and states that is has been working ) HPI: Ms. Tamiko Méndez is a(n) 40 year old female who presents today as a return patient for neck cyst, acne, eczema. The patient was last seen in dermatology by myself on 05/24/20 at which point 13 skin tags were treated with cryo. Additionally, she was advised to use BP wash for treatment of folliculitis. Neck Cyst 01/25/21 noticed. Swelling and pain. 01/28/21 urgent care. Abx - bactrim. 01/31/21 had it incised&drainage. Since then, not a bother. Mild swelling. No pain. No bleeding, no abscess. No fever. Acne Needs refill of spironolactone. No side effects. No urinary frequency, dizzy, lightheadedness, nausea, etc. Going well. Right nasal fold. inflamed pretty frequencly. Topicals: Destineeier's milky gel Neutrogena ultra gentle cleanser (PHAs) Dinodavid Nayak's enzyme gel *Using moisturizer Eczema Been Left palm spot Some itching Often over hands Helping with vaseline, neutragena, hyaluronic acid, with betamethasone usually helps. From prior note Cystic hygroma of neck Assess US for possible abscess, lipoma - US Head Neck Soft Tissue; Future ?? Infected epidermoid cyst Continue antibiotic, reassess after finishing it if needs to continue treatment Patient is otherwise feeling well, without additional skin concerns. Labs Reviewed: A1c > 10 on last check. Physical Exam: Vitals: There were no vitals taken for this visit. SKIN: full exam of skin of upper back, face, b/l hands Fibrous thickened area of skin on upper back. Feels consistent with woody edema. 3-4cm linear scar lower cervical area without hypertrophy. Few closed comedones in right nasal fold. Mild degree of erythema over b/l hands with evidence of excoriation - No other lesions of concern on areas examined. ULTRASOUND HEAD AND NECK SOFT TISSUE 02/13/2021 3:57 PM ?? HISTORY: Cystic hygroma of neck. ?? COMPARISON: None. ?? FINDINGS: Hypoechoic nodule in the posterior neck measuring 5 x 5 x 4 mm, question minimal residual fluid. There is no evidence for cervical adenopathy bilaterally by size or morphology. Mild subcutaneous emphysema noted. IMPRESSION: Possible tiny residual fluid collection measuring 5 mm in the posterior neck. This may simply represent heterogeneous echogenicity in this region. ?? THOMAS ASHLEY MD Medications: Current Outpatient Medications Medication ??? augmented betamethasone dipropionate (DIPROLENE-AF) 0.05 % external cream ??? Calcium Carb-Cholecalciferol (CALCIUM 500+D PO) ??? cetirizine (ZYRTEC) 10 MG tablet ??? citalopram (CELEXA) 40 MG tablet ??? Continuous Blood Gluc Confectionery Cooker (FREESTYLE LEATHA 14 DAY READER) MARY ??? Continuous Blood Gluc Sensor (FREESTYLE LEATHA 14 DAY SENSOR) MISC ??? Continuous Blood Gluc Sensor (FREESTYLE LEATHA 14 DAY SENSOR) MISC ??? Digestive Enzymes (PAPAYA AND ENZYMES PO) ??? fluconazole (DIFLUCAN) 150 MG tablet ??? Injection Device for insulin (INPEN [id number]) MARY ??? Injection Device for insulin (INPEN [id number]) MARY ??? insulin aspart (FIASP FLEXTOUCH) 100 UNIT/ML pen-injector ??? Insulin Aspart, w/Niacinamide, (FIASP PENFILL) 100 UNIT/ML SOCT ??? insulin glargine (LANTUS PEN) 100 UNIT/ML pen ??? insulin syringe 31G X 08/13 0.5 ML MISC ??? multivitamin w/minerals (MULTI-VITAMIN) tablet ??? norethindrone (AYGESTIN) 5 MG tablet ??? OMEPRAZOLE PO ??? propranolol (INDERAL) 10 MG tablet ??? spironolactone (ALDACTONE) 100 MG tablet Current Facility-Administered Medications Medication ??? lidocaine (PF) (XYLOCAINE) 2 % injection 5 mL ??? LORazepam (ATIVAN) tablet 1 mg Past Medical History: Patient Active Problem List Diagnosis ??? 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 Abnormal uterine bleeding (AUB) ??? Morbid obesity (H) Past Medical History: Diagnosis Date ??? Acne cystica ??? Adenomyosis ??? Asthma ??? Depression ??? Dysmenorrhea ??? H/O seasonal allergies ??? Type I (juvenile type) diabetes mellitus without mention of complication, not stated as uncontrolled 1982 age 10 months ITY CONTROL INDUSTRIAL ENGINEER documented in this encounter Nursing Notes Reny Hassan CMA - 04/25/2021 2:15 PM CST Dermatology Rooming Note Tamiko Méndez's goals for this visit include: Chief Complaint Patient presents with ??? Derm Problem Betty would like a refill of her spironolactone and states that is has been working Reny Hassan CMA ITY CONTROL INDUSTRIAL ENGINEER documented in this encounter Plan of Treatment Upcoming Encounters Date Type Specialty Care Team Description 04/04/2022 Office Visit print machine operator Kaela Dubois, SHAW ADULT SCHOOL COUNSELOR [facility] [address] [place], [place] [address] (Wo rk) 04/23/2022 Virtual Visit Endocrinology Lottie Cedillo PA-C [address] [place], [place] [address] (Wo rk) documented as of this encounter Visit Diagnoses Diagnosis Chronic dermatitis of hands Contact dermatitis and other eczema, due to unspecified cause Acne vulgaris Other acne documented in this encounter Additional Health Concerns Assessment Noted Time PHQ-9 Depression Total Score: 0 04/06/2019 1:16 PM QUALITY CONTROL INDUSTRIAL ENGINEER documented as of this encounter Care Teams Is Technician Relationship Specialty Start Date End Date Nelda Peña, PCP - General Nurse Practitioner 02/02/18 CORRUGATOR MACHINE OPERATOR ADULT SCHOOL COUNSELOR 420 [facility] 741 [place] [address] Jose Lopez, SHELL ARRIOLA Optometry 03/04/18 Jillian Dubois Nurse Practitioner Nurse Practitioner 08/17/18 [facility] [address], [place] [address] Nawaf Morocho MD Dermatology 04/24/20 [facility] 516 [facility] 98 [place] [address] Lottie Cedillo, Assigned Endocrinology 06/14/20 PA-C Provider [address] [place] [address] Azeem Lindsey, Assigned Behavioral 06/18/20 [facility] Provider [address] [place] [address] Liz Kirkland, Assigned Surgical 12/10/20 MD Teodoro Provider [address] [place] [address] Jillian Dubois Assigned OBGYN Provider 01/28/21 SHAW Infnate [facility] [address] [place] [address] Nelda Peña, Assigned PCP 04/08/21 08/31/[address] [place] [address] documented as of this encounter
--- OUTSIDE RECORDS SUMMARY | 2022-02-19 14:24 | XMS_ITS | Encounter Summary ---
:1980 Author Organization [place] Address [facility] [place] [address] Care Team Providers Name Role Phone JonoamericaNelda SUPERVISOR FACEPIECE LINE CRA OFFICER Primary Care Provider [phone] Jose Lopez OD Unavailable Jillian Dubois APRN CRA OFFICER Unavailable [phone] Nawaf Morocho MD Unavailable Lottie Cedillo-C Unavailable Azeem Lindsey APRN CRA OFFICER Unavailable [phone] Jillian Dubois SUPERVISOR FACEPIECE LINE CRA OFFICER Unavailable [phone] Nawaf Morocho MD Unavailable Mynor Barry MD Unavailable Encounter Details Date Type Department Care Team Description 09/18/2021 Travel Social History Tobacco Use Types Packs/Day [...] at Date Recorded Female 05/08/2020 12:57 PM SUPERVISOR BRIAR SHOP COVID-19 Exposure Response Date Recorded In the last 10 days, have you been in contact with No / Unsu re 09/18/2021 2:19 PM CDT someone who was confirmed or suspected to have Coronavirus/COVID-19? documented as of this encounter Plan of Treatment Upcoming Encounters Date Type Specialty Care Team Description 04/04/2022 Office Visit mathematical scientist Kaela Dubois APRN [facility] [address] [place], [place] [address] (Wo rk) 04/23/2022 Virtual Visit Endocrinology Lottie Cedillo PA-C [address] [place], [place] [address] (Wo rk) documented as of this encounter Visit Diagnoses Not on filedocumented in this encounter Additional Health Concerns Assessment Noted Time PHQ-9 Depression Total Score: 0 04/06/2019 1:16 PM SUPERVISOR BRIAR SHOP documented as of this encounter Care Teams Machinery Erector Relationship Specialty Start Date End Date Nelda Peña, PCP - General Nurse Practitioner 02/02/18 SHAW [facility]Z 420 [facility] 741 [place], [place] [address] Jose Lopez OD MD Optometry 03/04/18 Jillian Dubois Nurse Practitioner Nurse Practitioner 08/17/18 SHAW Infante CNP [facility] [address] [place] [address] Nawaf Morocho, Dermatology 04/24/[address] [address] Lottie Cedillo, Assigned Endocrinology 06/14/20 PA-C Provider [address] [place], [place] [address] Azeem Lindsey, Assigned Behavioral 06/18/20 Pending [facility] to [facility] Provider [address] [place], [place] [address] Jillian Dubois Assigned OBGYN Provider 01/28/21 [facility] [address] [place] [address] Nawaf Morocho, Assigned Surgical 04/29/[address] [address] Mynor Barry, Assigned PCP 09/01/21 10/05/21 MD Caroline [place], [place] [phone] documented as of this encounter
--- OUTSIDE RECORDS SUMMARY | 2022-02-19 14:24 | XMS_ITS | Encounter Summary ---
:1980 Author Organization [place] Address [facility] [place] [address] Care Team Providers Name Role Phone Nelda Peña APRN SENSOR TECHNICIAN Primary Care Provider Jose Lopez OD Unavailable Jillian Dubois APRN SENSOR TECHNICIAN Unavailable [phone] Nelda Peña APRN SENSOR TECHNICIAN Unavailable [phone] Nawaf Morocho MD Unavailable Lottie Cedillo PA-C Unavailable Azeem Lindsey BREAKER ENGINEER SENSOR TECHNICIAN Unavailable [phone] Teodoro Joaquin MD Unavailable [phone] Jillian Dubois APRN SENSOR TECHNICIAN Unavailable [phone] Encounter Details Date Type Department Care Team Description 02/13/2021 Travel Social History Tobacco Use Types Packs/Day [...] at Date Recorded Female 05/08/2020 12:57 PM WIRE STITCHER COVID-19 Exposure Response Date Recorded In the last month, have you been in contact with Yes 02/13/2021 3:27 PM WIRE STITCHER someone who was confirmed or suspected to have Coronavirus / COVID-19? documented as of this encounter Plan of Treatment Upcoming Encounters Date Type Specialty Care Team Description 04/04/2022 Office Visit lace tearing supervisor Kaela Dubois APRN CNP [facility] [address] [place] [phone] (Wo rk) 04/23/2022 Virtual Visit Endocrinology Lottie Cedillo PA-C [address] [place], [place] [address] (Wo rk) documented as of this encounter Visit Diagnoses Not on filedocumented in this encounter Additional Health Concerns Assessment Noted Time PHQ-9 Depression Total Score: 0 04/06/2019 1:16 PM WIRE STITCHER documented as of this encounter Care Teams Social Worker Aide Relationship Specialty Start Date End Date Nelda Peña, PCP - General Nurse Practitioner 02/02/18 SHAW SENSOR TECHNICIAN [address] [facility] 741 [place] [address] Jose Lopez OD MD Optometry 03/04/18 Jillian Dubois Nurse Practitioner Nurse Practitioner 08/17/18 [facility] [address] [place] [address] Nelda Peña, Assigned PCP 03/12/20 03/03/21 BREAKER ENGINEER [facility] 420 [facility] 741 [place], [place] [address] Nawaf Morocho MD Dermatology 04/24/20 [facility] 516 [facility] 98 [place], [place] [phone] oLttie Cedillo, Assigned Endocrinology 06/14/20 PA-C Provider [address] [place] [address] Azeem Lindsey, Assigned Behavioral 06/18/20 [facility] Provider [address] [place], [place] [address] Liz Kirkland, Assigned Surgical 12/10/20 MD Teodoro Provider [address] [place] [phone] Jillian Dubois Assigned OBGYN Provider 01/28/21 [facility] [address] [place] [phone] documented as of this encounter
--- OUTSIDE RECORDS SUMMARY | 2022-02-19 14:24 | XMS_ITS | Encounter Summary ---
:1980 Author Organization [place] Address [address] [place] [address] Care Team Providers Name Role Phone JonoamericaNelda CHEMICAL PREPARER EMS EDUCATOR Primary Care Provider Jose Lopez OD Unavailable Jillian Dubois APRN EMS EDUCATOR Unavailable Nawaf Morocho MD Unavailable Lottie Cedillo PA-C Unavailable Azeem Lindsey APRN EMS EDUCATOR Unavailable [phone] Teodoro Joaquin MD Unavailable [phone] Jillian Dubois CHEMICAL PREPARER EMS EDUCATOR Unavailable Mynor Barry MD Unavailable Reason for Visit Reason Onset Date Comments Refill Request 03/06/2021 Continuous Blood Glu c Sensor (FREESTYLE LEATHA 14 DAY SENSOR) [facility] Encounter Details Date Type Department Care Team Description 03/06/2021 Refill [employer] Lottie Cedillo, Refil l Request Endocrinology Clinic PA-C (Continuous Blood Gluc [place] [address] [facility] SE Sensor (FREESTYLE LEATHA [address] [facility] [address] [place], [place] 14 DAY SENSOR) [facility] [place]) 3rd Floor [id number] [place] [address] [phone] Social History Tobacco Use Types Packs/Day [...] at Date Recorded Female 05/08/2020 12:57 PM DAIRY FEED SALES CONSULTANT COVID-19 Exposure Response Date Recorded In the last month, have you been in contact with Yes 02/13/2021 3:27 PM DAIRY FEED SALES CONSULTANT someone who was confirmed or suspected to have Coronavirus / COVID-19? documented as of this encounter Miscellaneous Notes Telephone Encounter - Kathy Zavala RN - 03/07/2021 6:39 AM CST Continuous Blood Gluc Sensor (FREESTYLE LEATHA 14 DAY SENSOR) [facility] [place] [facility] 12/26/2020 [facility] End[facility]ology [facility] [place] Lottie Cedillo PA-C Endocrinology, Diabetes, and Metabolism Return in about 3 months (around 03/27/2021). Y FEED SALES CONSULTANT documented in this encounter Plan of Treatment Upcoming Encounters Date Type Specialty Care Team Description 04/04/2022 Office Visit service specialist Kaela Dubois APRN EMS EDUCATOR [facility] [address] [place], [place] [address] (Wo rk) 04/23/2022 Virtual Visit Endocrinology Lottie Cedillo PA-C [address] [place], [place] [address] (Wo rk) documented as of this encounter Visit Diagnoses Diagnosis Type 1 diabetes mellitus with complicati ons (H) documented in this encounter Additional Health Concerns Assessment Noted Time PHQ-9 Depression Total Score: 0 04/06/2019 1:16 PM DAIRY FEED SALES CONSULTANT documented as of this encounter Care Teams Trash Collector Relationship Specialty Start Date End Date Nelda Peña, PCP - General Nurse Practitioner 02/02/[address] [place], [place] [id number] Jose Lopez, SHELL ARRIOLA Optometry 03/04/18 Jillian Dubois Nurse Practitioner Nurse Practitioner 08/17/18 [facility] [address] [place] [address] Nawaf Morocho MD Dermatology 04/24/20 [facility] [address] [facility] [address] [place] [address] Lottie Cedillo, Assigned Endocrinology 06/14/20 [facility] Provider [address] [place], [place] [id number] Azeem Lindsey, Assigned Behavioral 06/18/20 [facility] [address] [place], [place] [address] Liz Kirkland, Assigned Surgical 12/10/20 MD Teodoro Provider [address] [place] [address] [phone] Jillian Dubois Assigned OBGYN Provider 01/28/21 [facility] [address] [place] [address] Mynor Barry, Assigned PCP 03/04/21 04/07/21 [place] [address] documented as of this encounter
--- OUTSIDE RECORDS SUMMARY | 2022-02-19 14:24 | XMS_ITS | Encounter Summary ---
:1980 Author Organization [place] Address [facility] [place] [address] Care Team Providers Name Role Phone Nelda Peña CONTACT LENS CURVE GRINDER SKIDDER LOADER Primary Care Provider Jose Lopez OD Unavailable Jillian Dubois APRN SKIDDER LOADER Unavailable [phone] Nelda Peña APRN SKIDDER LOADER Unavailable [phone] Nawaf Morocho MD Unavailable Lottie Cedillo-Robert Unavailable Azeem Lindsey CONTACT LENS CURVE GRINDER SKIDDER LOADER Unavailable [phone] Teodoro Joaquin MD Unavailable [phone] Jillian Dubois APRN SKIDDER LOADER Unavailable [phone] Reason for Referral Diagnostic Imaging Ultrasound (Routine) - Closed Specialty Diagnoses / Procedures Referred By Contact Refer red To Contact Diagnoses Cystic hygroma of neck Mynor Barry MD Procedures US Head Neck Soft Tissue [address] [place] [address] Referral ID Status Reason Start Date Expiration Date Visits Requ ested Visits Authorized [id number] Closed 02/08/2021 02/08/2022 1 1 EWORK SUPERVISOR Reason for Visit Diagnostic Imaging Ultrasound (Routine) - Closed Specialty Diagnoses / Procedures Referred By Contact Refer red To Contact Diagnoses Cystic hygroma of neck Mynor Barry MD Procedures US Head Neck Soft Tissue [address] [place] [address] Referral ID Status Reason Start Date Expiration Date Visits Requ ested Visits Authorized [id number] Closed 02/08/2021 02/08/2022 1 1 Encounter Details Date Type Department Care Team Description 02/13/2021 Hospital Encounter [facility] Mynor Barry Cystic hygroma of [facility] Gisela Swann MD neck [address] [facility] [address] [place], [place] [phone] [address] Social History Tobacco Use Types Packs/Day Years [...] at Date Recorded Female 05/08/2020 12:57 PM STONEWORK SUPERVISOR COVID-19 Exposure Response Date Recorded In the last month, have you been in contact with Yes 02/13/2021 3:27 PM STONEWORK SUPERVISOR someone who was confirmed or suspected to have Coronavirus / COVID-19? 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) Digestive Enzymes 0 (PAPAYA AND ENZYMES PO) fluconazole (DIFLUCAN) 0 01/18/2021 150 MG tablet Injection Device for 2 each 4 times daily 2 each 0 12/09 insulin (INPEN (before meals and [id number]) nightly) DEVIIndications: 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) Injection Device for 1 each 4 times daily 2 each 0 12/08 insulin (INPEN (before meals and [id number]) nightly) DEVIIndications: 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) insulin aspart (FIASP Inject 1-15 Units 30 mL 4 021 FLEXTOUCH) 100 UNIT/ML Subcutaneous 4 times pen-injectorIndications daily MDD 55 units : 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) insulin syringe 31G X 1 Application 4 times 90 each 3 5/16 0.5 ML daily (before meals MISCIndications: Type 1 and nightly) diabetes mellitus with complications (H) multivitamin w/minerals Take 1 tablet by 0 (THERA-VIT-M) tablet mouth daily OMEPRAZOLE PO 0 propranolol (INDERAL) Take 1-2 tablets 120 tablet 0 12/26/19 21 10 MG (10-20 mg) by mouth 2 tabletIndications: times daily as needed Anxiety (anxiety/agitation) augmented betamethasone Apply topically 2 50 g 1 04/0904/25/2021 dipropionate times daily Do not (DIPROLENE-AF) 0.05 % apply to face, groin, external or armpits creamIndications: Chronic dermatitis of hands citalopram (CELEXA) 40 Take 1 tablet (40 mg) 90 tablet 0 05/28/2021 MG tabletIndications: by mouth daily Episode of recurrent major depressive disorder, unspecified depression episode severity (H) Continuous Blood Gluc Change every 14 days. 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) norethindrone Take 1 tablet (5 mg) 90 tablet 3 01/18/2021 1 04/01/2021 (AYGESTIN) 5 MG by mouth daily tabletIndications: Abnormal uterine bleeding (AUB) spironolactone Take 1 tablet by 30 tablet 11 06/01/202004/01 (ALDACTONE) 100 MG mouth once daily tabletIndications: Acne vulgaris documented as of this encounter Plan of Treatment Upcoming Encounters Date Type Specialty Care Team Description 04/04/2022 Office Visit title lawyer Kaela Dubois APRN [facility] [address] [place] [address] (Wo rk) 04/23/2022 Virtual Visit Endocrinology Lottie Cedillo PA-C [address] [place] [address] (Wo rk) documented as of this encounter Procedures Procedure Name Priority Date/Time Associated Diagnosis Comme nts US HEAD NECK SOFT Routine 02/13/2021 3:57 PM Cystic hygroma of Results for this TISSUE STONEWORK SUPERVISOR neck procedure are i n the results section. documented in this encounter Results US Head Neck Soft Tissue (02/13/2021 3:57 PM STONEWORK SUPERVISOR) Anatomical Region Laterality Modality Head Ultrasound Specimen (Source) Anatomical Location Collection Method / Collectio n Time Received Time / Laterality Volume Impressions 02/13/2021 4:13 PM STONEWORK SUPERVISOR IMPRESSION: ??Possible tiny residual fluid collection measuring 5 mm in the posterior neck. This may simply repr esent heterogeneous echogenicity in this region. THOMAS ASHLEY MD Narrative 02/13/2021 4:13 PM STONEWORK SUPERVISOR ULTRASOUND HEAD AND NECK SOFT TISSUE ??02/13/2021 [...] THOMAS ASHLEY MD Mynor Barry MD IMG US ORDERABLES documented in this encounter Visit Diagnoses Diagnosis Cystic hygroma of neck documented in this encounter Additional Health Concerns Assessment Noted Time PHQ-9 Depression Total Score: 0 04/06/2019 1:16 PM STONEWORK SUPERVISOR documented as of this encounter Care Teams Business Analysis Professional Relationship Specialty Start Date End Date Nelda Peña, PCP - General Nurse Practitioner 02/02/18 CONTACT LENS CURVE GRINDER SKIDDER LOADER [address] [facility] [address] [place] [address] Jose Lopez OD MD Optometry 03/04/18 Jillian Dubois Nurse Practitioner Nurse Practitioner 08/17/18 [facility] [address] [place] [address] Nelda Peña, Assigned PCP 03/12/20 03/03/21 CONTACT LENS CURVE GRINDER SKIDDER LOADER [address] [facility] [address] [place] [address] Nawaf Morocho MD Dermatology 04/24/20 [facility] [address] [facility] [address] [place] [address] Lottie Cedillo, Assigned Endocrinology 06/14/20 PA-C Provider [address] [place] [address] Azeem Lindsey, Assigned Behavioral 06/18/20 CONTACT LENS CURVE GRINDER Pending sale to [facility] Provider [address] [place] [address] Liz Kirkland, Assigned Surgical 12/10/20 MD Teodoro Provider [address] [place] [address] Jillian Dubois Assigned OBGYN Provider 01/28/21 [facility] [address] [place] [address] documented as of this encounter
--- OUTSIDE RECORDS SUMMARY | 2022-02-19 14:24 | XMS_ITS | Encounter Summary ---
:1980 Author Organization [facility] Address Formerly [facility] [place] [address] Care Team Providers Name Role Phone Nelda Peña APRN [employer] Primary Care Provider Jose Lopez OD Unavailable Jillian Dubois APRN [employer] Unavailable Nawaf Morocho MD Unavailable Lottie Cedillo-C Unavailable Azeem Lindsey APRN [employer] Unavailable [phone] Jillian Dubois GROUP DIRECTOR [employer] Unavailable [phone] Nawaf Morocho MD Unavailable Mynor Barry MD Unavailable Reason for Referral Consultation (Routine) - Pending Review Specialty Diagnoses / Procedures Referred By Contact Refer red To Contact Bariatric Diagnoses Morbid obesity (H) Nelda Peña APRN [employer] [address] [facility] [address] [place], [place] [address] Referral ID Status Reason Start Date Expiration Date Visits V isits Requested Authorized [id number] Pending 10/02/2021 10/02/2022 1 1 Review Consultation (Routine: Next available opening) - Pending Review Specialty Diagnoses / Referred By Contact Referred To Contact Procedures Physical Medicine and Diagnoses Post-COVID chronic fatigue Nelda Peña, Rehabilitation [facility] [address] [place] [address] Referral ID Status Reason Start Date Expiration Date Visits V isits Requested Authorized [id number] Pending 10/02/2021 10/02/2022 1 1 Review Reason for Visit Reason Comments Follow Up Referral Encounter Details Date Type Department Care Team Description 10/02/2021 Office Visit [facility] Nelda Peña 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) (Primary Dx); Clinic Internal SHAW Roy CNP Post-COVID chronic fatigue; Medicine [address] Episode of recurrent major d epressive disorder, unspecified depression episode severity (H); 909 [facility] 741 Morbid obesity (H) [address] [place] [address] [phone] Social History Tobacco Use Types Packs/Day Years [...] at Date Recorded Female 05/08/2020 12:57 PM APPLICATION 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 documented as of this encounter Last Filed Vital Signs Vital Sign Reading Time Taken Comments Blood Pressure 131/89 10/02/2021 1:29 PM CDT Pulse 111 10/02/2021 1:29 PM CDT Temperature - - Respiratory Rate 16 10/02/2021 1:29 PM CDT Oxygen Saturation 98% 10/02/2021 1:29 PM CDT Inhaled Oxygen Concentration - - Weight 105.2 kg (232 lb) 10/02/2021 1:29 PM CDT Height 157.5 cm (5' 2) 10/02/2021 1:29 PM CDT Body Mass Index 42.43 10/02/2021 1:29 PM CDT documented in this encounter Patient Instructions Patient InstructionsEdenilson Villavicencio - 10/02/2021 1:30 PM CDT Thank you for visiting the Primary [facility] Center today at the [facility]! The following is some information about our clinic: Primary Care Center Frequently-Asked Questions (FAQs) How do I schedule appointments at the [facility]? Primary Care--to schedule or make changes to an existing appointment, please call our primary care line at [phone]. Labs--to schedule a lab appointment at the [facility] you can use [employer] or call [phone]. If you have a [facility] location that is closer to home, you can reach out to that location for scheduling options. Imaging--if you need to schedule a CT, X-ray, MRI, ultrasound, or other imaging study, you can call [phone] to schedule at the [facility] or any [facility] imaging center. Referrals--if a referral to another specialty was ordered you can expect a phone call from their scheduling team. If you have not heard from them in a week, please call us or send us a [employer] message to check the status or get a scheduling number. Please note that this only applies to internal [facility] referrals. If the referral is external you would need to contact their office for scheduling. I have a question about my visit, who do I contact? You can call us at the primary care line at [phone] to ask questions about your visit. You can also send a secure message through [employer], which is reviewed by clinic staff. Please note that [employer] messages have a twenty-four to forty-eight business hour turnaround time and should not be used for urgent concerns. How will I get the results of my tests? If you are signed up for [employer] all tests will be released to you within twenty-four hours of resulting. Please allow three to five days for your doctor to review your results and place a note interpreting the results. If you do not have [employer] you will receive your results through mail seven to tenbusiness days following the return of the tests. Please note that if there should be any urgent or concerning results that your doctor or their registered nurse will reach out to you the same day as the tests come back. If you have follow up questions about your results or would like to discuss the results in detail please schedule a follow up with your provider either in person or virtually. How do I get refills of my prescriptions? You should always first contact your pharmacy for refills of your medications. If submitting a refill request on [employer], please be sure to submit the request only once--repeat requests can cause delays in refill. If you are requesting a new medication or a medication related to new symptoms you will need to schedule an appointment with a provider prior to approval. Please note: Routine medication refills have up to one to three business day turnaround whereas controlled substances refills have up to five to seven business day turnaround. I have new symptoms, what do I do? If you are having an immediate medical emergency, you should dial 911 for assistance. For anything urgent that needs to be seen within a few hours to one day you should visit a local urgent care for assistance. For non-urgent symptoms that need to be seen within a few days to a week you can schedule with an available provider in primary care by going to [employer] or calling [phone]. If you are not sure how serious your symptoms are or you would like to receive medical advice you can always call [phone] to speak with a triage nurse. documented in this encounter Progress Notes Nelda Peña, GROUP DIRECTOR [employer] - 10/02/2021 1:30 PM CDT S: Tamiko Méndez is a 40 year old female here for follow-up SHe had Covid again 1 month ago and hassinus issues ( dry sinus alternating with congestion), Worsening sleep disturbance, periods of apnea, snoring, wakes feeling fatigues. She goes to bed at 10:00 p.m. and wakes at 6:45 feeling fatigued. She is requesting a sleep clinic referral. She requests referral to Post Covid Clinic. Patient Active Problem List Diagnosis ??? 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 Abnormal uterine bleeding (AUB) ??? Morbid obesity (H) Past Medical History: Diagnosis Date ??? Acne cystica ??? Adenomyosis ??? Asthma ??? Depression ??? Dysmenorrhea ??? H/O seasonal allergies ??? Type I (juvenile type) diabetes mellitus without mention of complication, not stated as uncontrolled 1982 age 10 months Past Surgical History: Procedure Laterality Date ? ? INDUCED ABORTN BY D&C ??? EXTRACTION(S) DENTAL ??? LASER SURGERY OF EYE Left diabetic retinopathy ??? ZZC ORAL SURGERY PROCEDURE Social History Tobacco Use ??? Smoking status: Never Smoker ??? Smokeless tobacco: Never Used Substance Use Topics ??? Alcohol use: Yes Family History Problem Relation Age of Onset ??? Osteoarthritis Mother ??? Impaired Fasting Glucose Mother ??? Anxiety Disorder Mother ??? Asthma Mother ??? Seasonal/Environmental Allergies Mother ??? Hypertension Father ??? Glaucoma Father glaucoma suspect ??? Obesity Sister ??? Osteoporosis Maternal Grandmother ??? Back Pain Maternal Grandmother ??? Kidney Disease Maternal Grandfather ??? Diabetes Type 2 Maternal Grandfather ??? Diabetes Type 2 Paternal Grandmother ??? Macular Degeneration No family hx of Allergies Allergen Reactions ? ? Hay Fever & [A.R.M.] Stuffiness, watery eyes ??? No Clinical Screening - See Comments Unknown Current Outpatient Medications Medication Sig Dispense Refill ??? augmented betamethasone dipropionate (DIPROLENE-AF) 0.05 % external cream Apply topically 2 times daily Do not apply to face, groin, or armpits 50 g 1 ??? Calcium Carb-Cholecalciferol (CALCIUM 500+D PO) ??? cetirizine (ZYRTEC) 10 MG tablet Take 10 mg by mouth daily ??? citalopram (CELEXA) 40 MG tablet Take 1 tablet (40 mg) by mouth daily NO FURTHER REFILLS THROUGHPSYCHIATRY CLINIC - For more refills,schedule an appointment at [phone] 30 tablet 0 ??? clindamycin (CLEOCIN T) 1 % external lotion Apply once daily to face 60 mL 11 ??? Continuous Blood Gluc Professor Of Business Administration (FREESTYLE LEATHA 14 DAY READER) MARY 1 Application 5 times daily 1 Device 1 ??? Continuous Blood Gluc Sensor (FREESTYLE LEATHA 14 DAY SENSOR) MISC Change every 14 days. For additional refills, please schedule a follow-up appointment at [phone] 2 each 4 ??? Digestive Enzymes (PAPAYA AND ENZYMES PO) ??? fluconazole (DIFLUCAN) 150 MG tablet (Patient not taking: Reported on 04/25/2021) ??? Injection Device for insulin (INPEN 018-FEAZ-CCVCU) MARY 2 each 4 times daily (before meals and nightly) 2 each 0 ??? Injection Device for insulin (INPEN [id number]) MARY 1 each 4 times daily (before meals and nightly) 2 each 0 ??? insulin aspart (FIASP FLEXTOUCH) 100 UNIT/ML pen-injector Inject 1-15 Units Subcutaneous 4 timesdaily MDD 55 units 30 mL 4 ??? Insulin Aspart, w/Niacinamide, (FIASP PENFILL) 100 UNIT/ML SOCT ??? insulin glargine (LANTUS PEN) 100 UNIT/ML pen Inject 46 Units Subcutaneous At Bedtime 45 mL 3 ??? insulin syringe 31G X 5/16 0.5 ML MISC 1 Application 4 times daily (before meals and nightly) 90 each 3 ??? multivitamin w/minerals (MULTI-VITAMIN) tablet Take 1 tablet by mouth daily ??? norethindrone (AYGESTIN) 5 MG tablet Take 1 tablet (5 mg) by mouth daily 90 tablet 3 ??? OMEPRAZOLE PO ??? propranolol (INDERAL) 10 MG tablet Take 1-2 tablets (10-20 mg) by mouth 2 times daily as needed (anxiety/agitation) 120 tablet 0 ??? spironolactone (ALDACTONE) 100 MG tablet Take 1 tablet (100 mg) by mouth daily 30 tablet 11 REVIEW OF SYSTEMS: See above. O: There were no vitals taken for this visit. GENERAL APPEARANCE: healthy, alert and no distress EYES: normal. RESP: no wheezes. CV:BP 131/89 (BP Location: Right arm, Patient Position: Sitting, Cuff Size: Adult Regular) Pulse 111 Resp 16 Ht 1.575 m (5' 2) Wt 105.2 kg (232 lb) SpO2 98% No BMI 42.43 kg/m?? \tonya, no HSM or masses and bowel sounds normal NEURO:Grossly normal MUSK:normal. SKIN:normal EXT: warm. Edema : none PSYCHE: normal. A/P: Tamiko was seen today for follow up and referral. 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 For additional refills, please schedule a follow-up appointment at [phone] - insulin lispro (HUMALOG VIAL) 100 UNIT/ML vial; Inject 20 Units Subcutaneous 3 times daily (beforemeals) for 90 days - lisinopril (ZESTRIL) 5 MG tablet; Take 1 tablet (5 mg) by mouth daily Post-COVID chronic fatigue - Adult Post Covid Clinic Referral; Future Episode of recurrent major depressive disorder, unspecified depression episode severity (H) - citalopram (CELEXA) 40 MG tablet; Take 1 tablet (40 mg) by mouth daily Morbid obesity (H) - Comprehensive Weight Management The patient voiced understanding of the information discussed and all questions were answered. Total time spent today with this patient including chart review, exam time with patient and documentation : 35 minutes. Nelda Peña APRN, [employer] documented in this encounter Nursing Notes Edenilson Villavicencio - 10/02/2021 1:30 PM CDT Tamiko Méndez is a 40 year old female patient that presents today in clinic for the following: Chief Complaint Patient presents with ??? Follow Up ??? Referral The patient's allergies and medications were reviewed as noted. A set of vitals were recorded as noted without incident: BP 131/89 (BP Location: Right arm, Patient Position: Sitting, Cuff Size: Adult Regular) Pulse 111 Resp 16 Ht 1.575 m (5' 2) Wt 105.2 kg (232 lb) SpO2 98% No BMI 42.43 kg/m?? . The patient does not have any other questions for the provider. Edenilson Villavicencio EMT at 1:29 PM on 10/02/2021 documented in this encounter Plan of Treatment Upcoming Encounters Date Type Specialty Care Team Description 04/04/2022 Office Visit delinquency prevention officer Kaela Dubois APRN [employer]OOK [facility] [address] [place], [place] [id number] (Wo rk) 04/23/2022 Virtual Visit Endocrinology Lottie Cedillo PA-C [address] [place], [place] [address] (Wo rk) Scheduled Orders Name Type Priority Associated Diagnoses Order S chedule Hemoglobin A1c Lab Routine Type 1 diabetes mellitus w ith Expected: 10/02/2021 complications (H) (Approxima te), Expires: 10/16/2021 Scheduled Referrals Name Type Priority Associated Order Schedule Diagnoses Adult Post Covid Referral Routine: Next Post-COVID chronic Expe cted: Clinic Referral available opening fatigue 022 (Approximate), Expires: 10/02/2022 Comprehensive Weight Referral Routine Morbid obesity (H) O rdered: Management 10/02/2021 documented as of this encounter Visit Diagnoses Diagnosis Type 1 diabetes mellitus with complicati ons (H) - Primary Post-COVID chronic fatigue 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, unspecified depression episode severity (H) Morbid obesity (H) Morbid obesity documented in this encounter Additional Health Concerns Assessment Noted Time PHQ-9 Depression Total Score: 7 10/02/2021 2:13 PM CDT documented as of this encounter Care Teams Logging Tractor Operator Swamp Relationship Specialty Start Date End Date Nelda Peña, PCP - General Nurse Practitioner 02/02/[address] [place], [place] [id number] Jose Lopez OD MD Optometry 03/04/18 Jillian Dubois Nurse Practitioner Nurse Practitioner 08/17/18 SHAW Infante [facility] [address] [place] [address] Nawaf Morocho MD Dermatology 04/24/[address] 6[address] Lottie Cedillo, Assigned Endocrinology 06/14/20 PA-C Provider [address] [place], [place] [address] Azeem Lindsey, Assigned Behavioral 06/18/20 [facility] Provider [address] [place], [place] [phone] Jillian Dubois Assigned OBGYN Provider 01/28/21 [facility] Infante [facility] [address] [place] [address] [id number] Nawaf Morocho, Assigned Surgical 04/29/21 MD Provider [address] [address] Mynor Barry, Assigned PCP 09/01/21 10/05/21 MD Caroline GOMES [place], [place] [address] documented as of this encounter
--- OUTSIDE RECORDS SUMMARY | 2022-02-19 14:24 | XMS_ITS | Encounter Summary ---
:1980 Author Organization [facility] Address [address] [place] [address] Care Team Providers Name Role Phone Nelda Peña APRN WAREHOUSE SELECTOR Primary Care Provider Jose Lopez OD Unavailable Jillian Dubois APRN WAREHOUSE SELECTOR Unavailable [phone] Nawaf Morocho MD Unavailable Lottie Cedillo-C Unavailable Azeem Lindsey APRN WAREHOUSE SELECTOR Unavailable [phone] Jillian Dubois APRN WAREHOUSE SELECTOR Unavailable [phone] Nawaf Morocho MD Unavailable Mynor Barry MD Unavailable Reason for Visit Reason Onset Date Comments Medication Question 10/02/2021 lisinopril (ZESTRIL) 5 MG tablet, spironolactone (ALDACTONE) 100 MG t marcos Encounter Details Date Type Department Care Team Description 10/02/2021 [facility] Nelda Peña, [facility] [place] Question Clinic Internal DIRECTOR RETIREMENT WAREHOUSE SELECTOR (lisinopril (ZESTRIL) [address] [facility] MG tablet, 909 [facility] SE [address] spironolactone [address] [place], [place] (ALDACTONE) 100 [place] [address] tablet) [id number] [phone] Social History Tobacco Use Types Packs/Day Years [...] Date Recorded Female 05/08/2020 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 documented as of this encounter Miscellaneous Notes Telephone Encounter - Marine Hernandes RN - 10/04/2021 10:32 AM CDT Lisinopril and spironolactone can increase patient potassium levels. ??I already called the pharmacy the okay to dispense lisinopril per Nelda as patient potassium will be monitored in 3 weeks. ? Can you call patient and let her know of the drug interaction and to watch out signs for high potassium symptoms. ??Nelda would like to check her potassium levels in 3 weeks. ??Order placed for her toget it done anytime in case she show symptoms and can get a potassium check prior to 3 weeks. Spoke to patient and let her know to monitor symptoms of high potassium. She voiced understanding, and she will make a lab appointment for 3 weeks from now or sooner if she experiences chest pains, palpitations, nausea, vomiting, SOB. Beata Hernandes, RN Telephone Encounter - Wyatt López - 10/04/2021 10:02 AM CDT Called pharmacy. Nelda is aware and is monitoring patient potassium in 3 weeks. Okay to dispense med as prescribed. Wyatt López CMA (AAMA) at 10:03 AM on 10/04/2021 Telephone Encounter - Kristina Bennett - 10/02/2021 3:34 PM CDT [facility] Phone Message May a detailed message be left on voicemail: yes Reason for Call: Medication Question or concern regarding medication Prescription Clarification Name of Medication: lisinopril (ZESTRIL) 5 MG tablet, spironolactone (ALDACTONE) 100 MG tablet Prescribing Provider: Nelda Peña APRN WAREHOUSE SELECTOR Pharmacy: [facility] [address] [place] [address] What on the order needs clarification? System said there was a drug interaction between meds since it can increase the potassium levels. Wondering about this and if provider is aware and is monitoringif they want to prescribe. Please call back to confirm and okay to leave message about this. #: [phone] Action Taken: Message routed to: [facility] Travel Screening: Not Applicable documented in this encounter Plan of Treatment Upcoming Encounters Date Type Specialty Care Team Description 04/04/2022 Office Visit warehouse order selector Kaela Dubois APRN WAREHOUSE SELECTOR [facility] [address] [place] [address] (Wo rk) 04/23/2022 Virtual Visit Endocrinology Lottie Cedillo PA-C [address] [place] [address] (Wo rk) documented as of this encounter Visit Diagnoses Not on filedocumented in this encounter Additional Health Concerns Assessment Noted Time PHQ-9 Depression Total Score: 7 10/02/2021 2:13 PM CDT documented as of this encounter Care Teams Monument Setter Helper Relationship Specialty Start Date End Date Nelda Peña, PCP - General Nurse Practitioner 02/02/[address] [place], [place] [phone] Jose Lopez OD MD Optometry 03/04/18 Jillian Dubois Nurse Practitioner Nurse Practitioner 08/17/18 SHAW Infante [facility] [address] [place] [id number] Nawaf Morocho MD Dermatology 04/24/20 [facility] 516 [facility] [address] [place], [place] [address] Lottie Cedillo, Assigned Endocrinology 06/14/20 [facility] Provider [address] [place], [place] [address] Azeem Lindsey, Assigned Behavioral 06/18/20 [facility] Provider [address] [place] [address] Jillian Dubois Assigned OBGYN Provider 01/28/21 SHAW Infante [facility] [address] [place] [address] [id number] Nawaf Morocho, Assigned Surgical 04/29/21 MD Provider [address] [address] Mynor Barry, Assigned PCP 09/01/21 10/05/21 [place] [address] documented as of this encounter
--- OUTSIDE RECORDS SUMMARY | 2022-02-19 14:24 | XMS_ITS | Encounter Summary ---
:1980 Author Organization [place] Address formerly [facility]0 [place] [address] Care Team Providers Name Role Phone Nelda Peña SOLDER SPRAYER PENSIONHOLDER INFORMATION CLERK Primary Care Provider Jose Lopez OD Unavailable Jillian Dubois SOLDER SPRAYER PENSIONHOLDER INFORMATION CLERK Unavailable [phone] Nawaf Morocho MD Unavailable Lottie Cedillo-Robert Unavailable Azeem Lindsey APRN PENSIONHOLDER INFORMATION CLERK Unavailable [phone] Jillian Dubois SOLDER SPRAYER PENSIONHOLDER INFORMATION CLERK Unavailable [phone] Nelda Peña APRN PENSIONHOLDER INFORMATION CLERK Unavailable [phone] Nawaf Morocho MD Unavailable Mynor Barry MD Unavailable Teodoro Joaquin MD Unavailable [phone] Nelda Peña APRN PENSIONHOLDER INFORMATION CLERK Unavailable [phone] Reason for Visit Reason Onset Date Comments Medication Request 05/28/2021 citalopram (CELEXA) 40 MG tablet Encounter Details Date Type Department Care Team Description 05/28/[address] [facility] Nelda Peña, [facility] Internal SOLDER SPRAYER PENSIONHOLDER INFORMATION CLERK (citalopram (CELEXA) Medicine [address] [facility] 40 MG tablet) 909 [facility] [address] [place] [address] [phone] Social History Tobacco Use Types Packs/Day Years [...] at Date Recorded Female 05/08/2020 12:57 PM OFFICE HELPER documented as of this encounter Miscellaneous Notes Telephone Encounter - Neyda Tellez RN - 05/28/2021 3:58 PM CST citalopram (CELEXA) 40 MG tablet Last Written Prescription Date: 12/25/20 Last Fill Quantity: 90, # refills: 0 Last Office Visit : 02/08/21 Dr. Barry Future Office visit: 0 Routing refill request to provider for review/approval because: Pt's psychiatry TEMPER MILL OPERATOR has departed from the psychiatry clinic and is requesting refills from Nelda Peña routing to Nelda to make sure she is ok with refilling CE HELPER Telephone Encounter - Marlene Liz - 05/28/2021 3:50 PM CST [facility] Call Center Phone Message May a detailed message be left on voicemail: yes Reason for Call: Medication Refill Request Has the patient contacted the pharmacy for the refill? Yes Name of medication being requested: Citalopram 40MG Provider who prescribed the medication: DR. Jones former psychiatrist, no longer at [facility], Pharmacy: [facility] [address] [place] [address] Date medication is needed: as soon as possible. Per patient she is leaving the country on 05/31/2021 and no longer see the prescribing provider, patient is requesting a 30 day supply. Action Taken: Message routed to: [facility] med refill Travel Screening: Not Applicable CE HELPER documented in this encounter Plan of Treatment Upcoming Encounters Date Type Specialty Care Team Description 04/04/2022 Office Visit oracle adf consultant Kaela Dubois, SOLDER SPRAYER PENSIONHOLDER INFORMATION CLERK [facility] [address] [place], [place] [address] (Wo rk) 04/23/2022 Virtual Visit Endocrinology Lottie Cedillo PA-C [address] [place] [address] (Wo rk) documented as of this encounter Visit Diagnoses Diagnosis 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, unspecified depression episode severity (H) documented in this encounter Additional Health Concerns Infection Onset Date Last Indicated Resolved Time Rule Out COVID-19 02/08/2022 02/08/2022 02/10/2022 1:3 0 PM OFFICE HELPER Assessment Noted Time PHQ-9 Depression Total Score: 0 04/06/2019 1:16 PM OFFICE HELPER documented as of this encounter Care Teams Neon Technician Relationship Specialty Start Date End Date Nelda Peña, PCP - General Nurse Practitioner 02/02/18 SOLDER SPRAYER PENSIONHOLDER INFORMATION CLERK 420 [facility] 741 [place] [address] Jose Lopez, OD Optometry 03/04/18 Jillian Dubois Nurse Practitioner Nurse Practitioner 08/17/18 SHAW Infante [facility] [address] [place] [address] Nawaf Morocho MD Dermatology 04/24/[address] [address] Lottie Cedillo, Assigned Endocrinology 06/14/20 PA-C Provider [address] [place], [place] [address] Azeem Lindsey, Assigned Behavioral 06/18/20 [facility] Provider [address] [place], [place] [address] Jillian Dubois Assigned OBGYN Provider 01/28/21 SHAW Inf[facility] [address] [place] [address] [phone] Nelda Peña, Assigned PCP 04/08/21 08/31/[address] [place] [address] Nawaf Morocho, Assigned Surgical 04/29/[address] [id number] Mynor Barry, Assigned PCP 09/01/21 10/05/21 MD Caroline [place], [place] [id number] Liz Kirkland, Assigned Surgical 10/27/21 MD Teodoro Provider [address] [place] [address] Nelda Peña, Assigned PCP 10/06/21 SOLDER SPRAYER PENSIONHOLDER INFORMATION CLERK 420 [facility] 741 [place] [address] documented as of this encounter
--- OUTSIDE RECORDS SUMMARY | 2022-02-19 14:24 | XMS_ITS | Encounter Summary ---
:1980 Author Organization [place] Address Formerly [facility] [place] [address] Care Team Providers Name Role Phone Nelda Peña APRN LAUNDRY OPERATOR FINISHING Primary Care Provider [phone] Jose Lopez OD Unavailable Jillian Dubois APRN LAUNDRY OPERATOR FINISHING Unavailable [phone] Nawaf Morocho MD Unavailable Lottie Cedillo-Robert Unavailable Azeem Lindsey APRN LAUNDRY OPERATOR FINISHING Unavailable [phone] Teodoro Joaquin MD Unavailable [phone] Jillian Dubois APRN LAUNDRY OPERATOR FINISHING Unavailable [phone] Nelda Peña APRN LAUNDRY OPERATOR FINISHING Unavailable [phone] Encounter Details Date Type Department Care Team Description 04/25/2021 Travel Social History Tobacco Use Types Packs/Day [...] at Date Recorded Female 05/08/2020 12:57 PM CHECK PROCESSING CLERK COVID-19 Exposure Response Date Recorded In the last month, have you been in contact with No / Unsure 04/25/2021 1:34 PM CHECK PROCESSING CLERK someone who was confirmed or suspected to have Coronavirus / COVID-19? documented as of this encounter Plan of Treatment Upcoming Encounters Date Type Specialty Care Team Description 04/04/2022 Office Visit filling hand Kaela Dubois APRN LAUNDRY OPERATOR FINISHING [facility] [address] [place] [phone] (Wo rk) 04/23/2022 Virtual Visit Endocrinology Lottie Cedillo PA-C [address] [place], [place] [address] (Wo rk) documented as of this encounter Visit Diagnoses Not on filedocumented in this encounter Additional Health Concerns Assessment Noted Time PHQ-9 Depression Total Score: 0 04/06/2019 1:16 PM CHECK PROCESSING CLERK documented as of this encounter Care Teams Teenage Babysitter Relationship Specialty Start Date End Date Nelda Peña, PCP - General Nurse Practitioner 02/02/18 VEHICLE INSPECTOR LAUNDRY OPERATOR FINISHING 420 [facility] 741 [place], [place] [address] Jose Lopez OD MD Optometry 03/04/18 Jillian Dubois Nurse Practitioner Nurse Practitioner 08/17/18 SHAW Infante [facility] [address] [place] [address] Nawaf Morocho MD Dermatology 04/24/20 [facility] 516 [facility] 98 [place], [place] [address] Lottie Cedillo, Assigned Endocrinology 06/14/20 PA-C Provider [address] [place], [place] [phone] Azeem Lindsey, Assigned Behavioral 06/18/20 [facility] Provider [address] [place], [place] [phone] Liz Kirkland, Assigned Surgical 12/10/20 MD Teodoro Provider [address] [place] [phone] Jillian Dubois Assigned OBGYN Provider 01/28/21 SHAW Infante [facility] [address] [place] [phone] Nelda Peña, Assigned PCP 04/08/21 08/31/21 VEHICLE INSPECTOR [address] [place], [place] [address] documented as of this encounter
--- NOTE | 2022-02-19 14:25 | ED_ITS ---
HPI - SOB/Dyspnea General Date Seen: 02/19/22 Chief Complaint: Cough Stated Complaint: Tightness in chest, coughing Time Seen by Provider: 02/19/22 13:26 Source: patient and family Mode of arrival: ambulatory Limitations: no limitations History of Present Illness HPI Narrative: Patient is a garcia 41-year-old female presents here for evaluation of a cough it has been for the last 5-6 weeks. She has noted worsening in the last 2 days, with a subjective fever last night. She has also had some mild chills, been using her inhaler 2 to 3 times a day, has no formal diagnosis of asthma. She has had long COVID both times after her COVID with the most recent in July of 2021, lasting 6 weeks. She called her friend who is a nurse who recommended that she come in and get some blood test. She has recently been on antibiotics for both bronchitis, and upper respiratory tract infection, she was on initially Augmentin for 2 weeks, this was followed up by another course of doxycycline over this 6 week time course. Does not feel that she ever fully recovered. Denies any chest pain, any increased leg swelling, hemoptysis feeling like she is going to pass out, or personal history of cardiac issues or exertional dyspnea. Patient is seen in the [employer] system she was able to pull up my chart and show me the last 2 admissions to urgent care. MD elicited complaint: shortness of breath and cough Onset (ago): day(s) Related Data Home oxygen amount: none Home Medications Medication Instructions Recorded Confirmed Lantus U-100 Insulin 02/19/22 cital 02/19/22 spironolactone 02/19/22 Previous Rx's Medication Instructions Recorded oseltamivir 75 mg capsule (Tamiflu) 75 mg PO BID 5 days #10 caps 02/19/22 prednisone 20 mg tablet 20 mg PO BID #10 tabs 02/19/22 Allergies Allergy/AdvReac Type Severity Reaction Status Date / Time No Known Drug Allergies Allergy Verified 02/19/22 13:45 Review of Systems Status of ROS: Reports: 10 or more systems reviewed and unremarkable except as noted in History and below [facility] Social History Smoking Status: Never smoker Do you use any of these nicotine containing products: None Second hand tobacco smoke exposure: No How often do you have a drink containing alcohol: never AUDIT-C Alcohol total score: 0 Non-prescribed substance use: denies use Exam Narrative: Exam Narrative: Patient is seen in room 5, she is speaking to me in full sentences her pupils are equal round reactive to light there is no scleral icterus or redness her TMs are normal, oropharynx is normal there is no adenopathy anterior posterior chains, chest use occasional wheezes in all lung heller, but I do not hear crackles are no signs respiratory distress, heart sounds no clicks murmurs or gallops her abdomen is soft and slightly protuberant there is no guarding no organomegaly extremities are all normal no pitting edema swelling negative Homans sign neurologically intact in upper lower extremities with no rashes. Const: Vital Signs, click to edit/add: Vital Signs - 24 hr 02/19/22 13:38 Temperature 97.5 F L Pulse Rate [Right Pulse Oximeter] 98 Respiratory Rate 18 Blood Pressure [Ri ght Upper Arm] 136/91 H Pulse Oximetry 95 Oxygen Delivery Me thod Room Air Documenting provider has reviewed patient's vital signs: yes Course Course Hospital Course: I discussed with Aditya that her EKG, D-dimer, troponin were all normal in her BMP her laboratory work was also really normal with exception being here influenza a was positive, the fact that she in the last 48 hours is felt significantly worse with the subjective fever I think this is the cause of this. She does have some reactive airway disease and I think it would not be unreasonable to give her prednisone she has a puffer at home. That she may use that along with the Tamiflu. As she is somewhat high risk given her asthma. I went over the risks benefits and side effects of this, including communicability we for this, she was comfortable this plan. If she has ongoing problems with both her lungs or her heart I would recommend a Cardiology and Pulmonary assessment through primary care. Vital Signs Vital signs: Initial Vital Signs Temperature 97.5 F L 02/19/22 13:38 Temperature Source Temporal Artery Scan 02/19/22 13:38 Pulse Rate 98 02/19/22 13:38 Respiratory Rate 18 02/19/22 13:38 Blood Pressure 136/91 H 02/19/22 13:38 Blood Pressure Mean 106 02/19/22 13:38 Blood Pressure Position Sitting 02/19/22 13:38 Pulse Oximetry 95 11/22/22 13:38 Oxygen Delivery Method 02/19/22 13:38 Vital Signs Temperature 97.5 F L 02/19/22 13:38 Pulse Rate 98 02/19/22 13:38 Respiratory Rate 18 02/19/22 13:38 Blood Pressure 136/91 H 02/19/22 13:38 Pulse Oximetry 95 02/19/22 13:38 Oxygen Delivery Method 02/19/22 13:38 Temperature 97.5 F L 02/19/22 13:38 Pulse Rate 98 02/19/22 13:38 Respiratory Rate 18 02/19/22 13:38 Blood Pressure 136/91 H 02/19/22 13:38 Pulse Oximetry 95 02/19/22 13:38 Oxygen Delivery Method 02/19/22 13:38 MDM - SOB/Dyspnea MDM Narrative Medical decision making narrative: Life-threatening differential diagnosis includes occluded COPD exacerbation, pulmonary edema, acute coronary syndromes, pulmonary embolism, pneumonia, and pneumothorax. Other differential diagnosis considerations include asthma, bronchitis as well as other etiologies Medical Records Attestation: I reviewed the patient's medical records. Lab Data Attestation: I reviewed the patient's lab results. Labs: Lab Results 02/19/22 02/19/22 02/19/22 Range/Units 14:47 14:47 14:47 WBC 3.97 L (4.50-11.00) K/uL RBC 4.45 (4.00-5.20) m/uL Hgb 13.0 (12.0-16.0) gm/dL Hct 38.9 (33.0-51.0) % MCV 87 (80-100) fL MCH 29 (26-34) pg MCHC 33 (32-36) gm/dL RDW Coeff of Eden 12.4 (11.5-15.5) % Plt Count 192 (140-440) K/uL Neut % (Auto) 59.6 (42.0-72.0) % Lymph % (Auto) 23.4 (20-44) % [place] % (Auto) 15.4 H (0.0-11.0) % Eos % (Auto) 0.8 (0.0-7.0) % Baso % (Auto) 0.5 (0.0-3.0) % Neut # (Auto) 2.40 (1.7-7.0) K/uL Lymph # (Auto) 0.90 (0.90-2.90) K/uL [place] # (Auto) 0.60 (0.00-0.90) K/UL Eos # (Auto) 0.00 (0.00-0.50) K/uL Baso # (Auto) 0.00 (0.00-0.30) K/uL Abs Immat Gran (auto) 0.00 (0.00-0.30) K/uL Imm/Tot Granulo (auto) 0.3 % D-Dimer Quant (PE/DVT) < 0.27 (0.00-0.50) ug/ml Sodium 137 (135-149) mmol/L Potassium 3.9 (3.6-5.1) mmol/L Chloride 105 (96-114) mmol/L Carbon Dioxide 24 (20-32) mmol/L BUN 13 (5-24) mg/dL Creatinine 0.8 (0.5-1.5) mg/dL Estimated Creat Clear 73.19 Estimated GFR 95 ml/min Glucose 282 H (60-115) mg/dL Calcium 8.5 (8.4-10.6) mg/dL NT-Pro-B Natriuret Pep 93 (0-125) PG/mL SARS-CoV-2 (PCR) (Negative) Influenza Type A (PCR) (Negative) Influenza Type B (PCR) (Negative) RSV (PCR) (Negative) POC Troponin I (0.01-0.04) ng/ml 02/19/22 02/19/22 Range/Units 14:47 14:47 WBC (4.50-11.00) K/uL RBC (4.00-5.20) m/uL Hgb (12.0-16.0) gm/dL Hct (33.0-51.0) % MCV (80-100) fL MCH (26-34) pg MCHC (32-36) gm/dL RDW Coeff of [place] (11.5-15.5) % Plt Count (140-440) K/uL Neut % (Auto) (42.0-72.0) % Lymph % (Auto) (20-44) % [place] % (Auto) (0.0-11.0) % Eos % (Auto) (0.0-7.0) % Baso % (Auto) (0.0-3.0) % Neut # (Auto) (1.7-7.0) K/uL Lymph # (Auto) (0.90-2.90) K/uL [place] # (Auto) (0.00-0.90) K/UL Eos # (Auto) (0.00-0.50) K/uL Baso # (Auto) (0.00-0.30) K/uL Abs Immat Gran (auto) (0.00-0.30) K/uL Imm/Tot Granulo (auto) % D-Dimer Quant (PE/DVT) (0.00-0.50) ug/ml Sodium (135-149) mmol/L Potassium (3.6-5.1) mmol/L Chloride (96-114) mmol/L Carbon Dioxide (20-32) mmol/L BUN (5-24) mg/dL Creatinine (0.5-1.5) mg/dL Estimated Creat Clear Estimated GFR ml/min Glucose (60-115) mg/dL Calcium (8.4-10.6) mg/dL NT-Pro-B Natriuret Pep (0-125) PG/mL SARS-CoV-2 (PCR) Negative SARS-CoV-2 (Negative) Influenza Type A (PCR) POSITIVE PCR FLU A A (Negative) Influenza Type B (PCR) Negative PCR FLU B (Negative) RSV (PCR) Negative PCR RSV (Negative) POC Troponin I 0.00 L (0.01-0.04) ng/ml Imaging Data Chest x-ray: Attestation: I have reviewed the pertinent imaging results. My impression: chest xray out Radiologist's impression: Patient: ADITYA RASHID Facility:?[facility] Patient ID:?[id number] Site Patient ID:?[id number]. Site :?[id number] Study:?XRay Chest 2 VIEWS-02/19/2022 2:28:57 PM Ordering Physician:?Flakito Duran Final Report: Indication: Shortness of breath Comparison: None available. Technique: PA and lateral views of the chest Findings: There is mild central bronchial thickening without dense consolidation, effusion or pneumothorax. The cardiomediastinal silhouette is within normal limits. The bony thorax is grossly intact. Impression: Mild central bronchial thickening without dense consolidation. Dictated by Griffin Childress MD @ 02/19/2022 2:57:29 PM (Electronic Signature) ECG Data Attestation: I personally reviewed and interpreted this ECG as follows: ECG interpretation date: 02/19/22 Prior ECG tracings: not available for review Interpretation: EKG shows normal sinus rhythm normal EKG with no acute ST wave changes normal QRS normal QT see noted. Discharge Plan Discharge Clinical Impression: Acute bronchospasm due to viral infection, Influenza A Patient Disposition: Home, Self-Care Condition: Stable Instructions: Influenza (DC), Viral Syndrome (ED), Bronchospasm (ED), Droplet Precautions (ED) Additional Instructions: Home rest use of medications as directed, suggest follow-up with primary care and 10-12 days and consideration of further evaluation with Pulmonary and Cardiology. Please take the prednisone and some Tamiflu as directed. Prescriptions: New oseltamivir [Tamiflu] 75 mg capsule 75 mg PO BID 5 Days Qty: 10 0RF prednisone 20 mg tablet 20 mg PO BID Qty: 10 0RF No Action Lantus U-100 Insulin cital spironolactone Follow Up/Referrals: Provider,Not a Local [Primary Care Provider] - Stand Alone Forms: [employer] Info Instructions
--- OUTSIDE RECORDS SUMMARY | 2022-02-19 14:25 | XMS_ITS | Encounter Summary ---
:1980 Author Organization [place] Address [address] [place] [address] Care Team Providers Name Role Phone Nelda Peña MEAT CUTTING TEACHER HOG TENDER Primary Care Provider [phone] Jose Lopez OD Unavailable Jillian Dubois MEAT CUTTING TEACHER HOG TENDER Unavailable [phone] Nelda Peña MEAT CUTTING TEACHER HOG TENDER Unavailable [phone] Seda Moy MD Unavailable [phone] Nawaf Morocho MD Unavailable Lottie Cedillo-Robert Unavailable Azeem Lindsey APRN HOG TENDER Unavailable [phone] Teodoro Joaquin MD Unavailable [phone] Reason for Visit Reason Onset Date Comments Prior Auth - Medication 01/04/2021 Freestyle Samantha 14 Day Sensor- Approved Encounter Details Date Type Department Care Team Description 01/04/2021 [facility] Lottie Cedillo, Prior Auth - Endocrinology Clinic PA-C Medication (Freestyle [place] [address] Samantha 14 Day Sensor- [address] [place], [place] Approved) 3rd Floor [address] [place], [place] [phone] [address] (Work) [phone] Social History Tobacco Use Types Packs/Day Years [...] at Date Recorded Female 05/08/2020 12:57 PM ROTARY SHEAR OPERATOR COVID-19 Exposure Response Date Recorded In the last month, have you been in contact with No / Unsure 01/02/2021 12:40 PM CDT someone who was confirmed or suspected to have Coronavirus / COVID-19? documented as of this encounter Miscellaneous Notes Telephone Encounter - Karolyn De La Vega - 01/08/2021 10:50 AM CDT Images from the original note were not included. Prior Authorization Approval Authorization Effective Date: 12/06/2020 Authorization Expiration Date: 01/06/2024 Medication: Freestyle Samantha 14 Day Sensor- Approved Approved Dose/Quantity: see below Reference #: CMM Nelson [id number] Insurance Company: [employer] - Expected CoPay: CoPay Card Available: [employer] Assistance Needed: Which Pharmacy is filling the prescription (Not needed for infusion/clinic administered): [facility] [address] [place] [address] Pharmacy Notified: Yes Patient Notified: Yes Telephone Encounter - Karolyn De La Vega - 01/04/2021 3:00 PM CDT Images from the original note were not included. PA Initiation Medication: Freestyle Samantha 14 Day Sensor- Pending Insurance Company: [employer] - Pharmacy Filling the Rx: [facility] [address] [place] [address] [address] [facility] Filling Pharmacy Phone: Filling Pharmacy Fax: Start Date: 01/04/2021 documented in this encounter Plan of Treatment Upcoming Encounters Date Type Specialty Care Team Description 04/04/2022 Office Visit multiple spindle screw machine operator Kaela Dubois APRN [facility] [address] [place] [address] (Wo rk) 04/23/2022 Virtual Visit Endocrinology Lottie Cedillo PA-C [address] [place] [address] (Wo rk) documented as of this encounter Visit Diagnoses Not on filedocumented in this encounter Additional Health Concerns Assessment Noted Time PHQ-9 Depression Total Score: 0 04/06/2019 1:16 PM ROTARY SHEAR OPERATOR documented as of this encounter Care Teams Crib Pad Maker Relationship Specialty Start Date End Date Nelda Peña, PCP - General Nurse Practitioner 02/02/18 [facility] 420 [facility] 741 [place] [address] Jose Lopez OD MD Optometry 03/04/18 Jillian Dubois Nurse Practitioner Nurse Practitioner 08/17/18 SHAW Infante HOG TENDER [facility] [address] [place] [address] Nelda Peña, Assigned PCP 03/12/20 03/03/21 MEAT CUTTING TEACHER HOG TENDER 420 [facility] 741 [place] [address] Seda Moy Assigned OBGYN Provider 01/21/20 01/27/21 MD Jai [address] [place] [address] Nawaf Morocho MD Dermatology 04/24/20 [facility] 516 [facility] 98 [place] [address] Lottie Cedillo, Assigned Endocrinology 06/14/20 PA-C Provider [address] [place] [address] Azeem Lindsey, Assigned Behavioral 06/18/20 MEAT CUTTING TEACHER [facility] Provider [address] [place] [address] Liz Kirkland, Assigned Surgical 12/10/20 MD Teodoro Provider [address] [place] [address] documented as of this encounter
--- OUTSIDE RECORDS SUMMARY | 2022-02-19 14:25 | XMS_ITS | Encounter Summary ---
:1980 Author Organization [place] Address Formerly [facility] [place] [address] Care Team Providers Name Role Phone Nelda Peña BUILDING SUPERINTENDENT LOWER IN SUPERVISOR Primary Care Provider [phone] Jose Lopez OD Unavailable Jillian Dubois APRN LOWER IN SUPERVISOR Unavailable [phone] Nelda Peña APRN LOWER IN SUPERVISOR Unavailable [phone] Seda Moy MD Unavailable [phone] Nawaf Morocho MD Unavailable Lottie Cedillo PA-C Unavailable Azeem Lindsey BUILDING SUPERINTENDENT LOWER IN SUPERVISOR Unavailable [phone] Teodoro Joaquin MD Unavailable [phone] Jillian Dubois BUILDING SUPERINTENDENT LOWER IN SUPERVISOR Unavailable [phone] Mynor Barry MD Unavailable Nelda Peña APRN LOWER IN SUPERVISOR Unavailable [phone] Nawaf Morocho MD Unavailable Mynor Barry MD Unavailable Teodoro Joaquin MD Unavailable [phone] Nelda Peña APRN [facility] Unavailable [phone] Reason for Visit Reason Onset Date Comments Prior Auth - Medication 12/27/2020 insulin aspart ( FIASP FLEXTOUCH) 100 UNIT/ML pen-injector--APPROV ED Encounter Details Date Type Department Care Team Description 12/27/2020 Telephone [facility] Lottie Cedillo, Prior Auth - Endocrinology Clinic PA-C Medication (insulin [place] 909 [facility] aspart (FIASP 9[address] [facility] [address] [place], [place] FLEXTOUCH) 100 UNIT/ML 3rd Floor [address] pen-injector--APPROVED [place], [place] [phone] ) [phone] (Work) [phone] Social History Tobacco Use Types Packs/Day Years [...] at Date Recorded Female 05/08/2020 12:57 PM ROLL WRAPPER COVID-19 Exposure Response Date Recorded In the last month, have you been in contact with No / Unsure 12/25/2020 3:12 PM CDT someone who was confirmed or suspected to have Coronavirus / COVID-19? documented as of this encounter Miscellaneous Notes Telephone Encounter - Kim Rea - 01/03/2021 10:59 AM CDT Images from the original note were not included. Prior Authorization Approval Authorization Effective Date: 12/03/2020 Authorization Expiration Date: 01/03/2024 Medication: insulin aspart (FIASP FLEXTOUCH) 100 UNIT/ML pen-injector--APPROVED Approved Dose/Quantity: Reference #: Insurance Company: [employer] [phone] Expected CoPay: CoPay Card Available: [facility] Assistance Needed: Which Pharmacy is filling the prescription (Not needed for infusion[facility]clinic administered[email or web address] [address] [place] [address] Pharmacy Notified: Yes Patient Notified: Yes Instructed pharmacy to notify patient when script is ready to picker tender helper/ship. Telephone Encounter - Kim Rea - 01/01/2021 1:36 PM CDT Images from the original note were not included. PA Initiation Medication: insulin aspart (FIASP FLEXTOUCH) 100 UNIT/ML pen-injector Insurance Company: F?rsat Bu F?rsat - [email or web address] [address] [place] [address] Filling Pharmacy Filling Pharmacy Start Date: 12/28/2020 Telephone Encounter - Kim Rea - 12/28/2020 4:35 PM CDT Images from the original note were not included. Insurance plan needs information as to why the patient failed Humalog. I see that patient has tried Humalog in past and per chart notes it states patient wants to try Fiasp. I will need a medical reason why the patient is unable to use Humalog, the insurance plan will not accept patient wants to try. Telephone Encounter - Cristy Chapa RN - 12/28/2020 4:01 PM CDT Prior Authorization Specialty Medication Request Medication/Dose: insulin aspart (FIASP FLEXTOUCH) 100 UNIT/ML pen-injector ICD code (if different than what is on RX): Previously Tried and Failed: Important Lab Values: Hemoglobin A1c Order: [id number] Status: Final result ?Visible to patient: Yes (MyChart) Dx: Type 1 diabetes mellitus with complic... 1 Result Note ?? 1 Patient Communication Ref Range & Units 3 d ago 1 yr ago Hemoglobin A1C 0.0 - 5.6 % 10.9High 11.9High R, CM Rationale: Insurance Name: Insurance ID: Insurance Phone Number: Pharmacy Information (if different than what is on RX) Name: Phone: Telephone Encounter - Emilia Colvin - 12/27/2020 9:25 AM CDT [facility] Call Center Phone Message May a detailed message be left on voicemail: no Reason for Call: Medication Question or concern regarding medication Prescription Clarification Name of Medication: insulin aspart (FIASP FLEXTOUCH) 100 UNIT/ML pen-injector Prescribing Provider: Nguyen Pharmacy: [facility] [address] [place] [address] What on the order needs clarification? Per Katty with the pharmacy this Rx isn't covered by the Pt's insurance, and they sent over a request for the provider to do a prior authorization. Because they got nearly an immediate response they are wondering if it was an automatic rejection. They are asking that this be reviewed again because since this Rx will cost over $1,000 the will need either a prior authorization to be done or to have an alternative option sent to them. Please review, and follow up with pharmacy. Action Taken: Message routed to: [facility] endocrine Travel Screening: Not Applicable documented in this encounter Plan of Treatment Upcoming Encounters Date Type Specialty Care Team Description 04/04/2022 Office Visit maintenance worker Kaela Dubois APRN [facility] [address] [place] [address] (Wo rk) 04/23/2022 Virtual Visit Endocrinology Lottie Cedillo PA-C [address] [place] [address] (Wo rk) documented as of this encounter Visit Diagnoses Not on filedocumented in this encounter Additional Health Concerns Infection Onset Date Last Indicated Resolved Time Rule Out COVID-19 02/08/2022 02/08/2022 02/10/2022 1:3 0 PM ROLL WRAPPER Assessment Noted Time PHQ-9 Depression Total Score: 0 04/06/2019 1:16 PM ROLL WRAPPER documented as of this encounter Care Teams Supervising Nurse Relationship Specialty Start Date End Date Nelda Peña, PCP - General Nurse Practitioner 02/02/18 BUILDING SUPERINTENDENT [facility] 420 [facility] 7[address] [place] [address] Jose Lopez OD MD Optometry 03/04/18 Jillian Dubois Nurse Practitioner Nurse Practitioner 08/17/18 SHAW Infante [facility] [address] [place] [address] Nelda Peña, Assigned PCP 03/12/20 03/03/21 BUILDING SUPERINTENDENT [facility] 420 [facility] 7[address] [place] [address] Seda Moy Assigned OBGYN Provider 01/21/20 01/27/21 MD Jai [address] [place] [address] Nawaf Morocho, Dermatology 04/24/[address] [address] Lottie Cedillo, Assigned Endocrinology 06/14/20 PA-C Provider [address] [place] [address] Azeem Lindsey, Assigned Behavioral 06/18/20 BUILDING SUPERINTENDENT [facility] Provider [address] [place] [address] Liz Kirkland, Assigned Surgical 12/10/20 MD Teodoro Provider [address] [place] [address] Jillian Dubois Assigned OBGYN Provider 01/28/21 SHAW Infante [facility] [address] [place] [address] Mynor Barry, Assigned PCP 03/04/21 04/07/21 [place] [address] Nelda Peña, Assigned PCP 04/08/21 08/31/21 BUILDING SUPERINTENDENT LOWER IN SUPERVISOR [address] [place] [address] [address] [place], [place] [phone] Nawaf Morocho, Assigned Surgical 04/29/[address] [id number] Mynor Barry, Assigned PCP 09/01/21 10/05/[address] [place], [place] [phone] Liz Kirkland, Assigned Surgical 10/27/21 MD Teodoro Provider [address] [place] [address] Nelda Peña, Assigned PCP 10/06/21 BUILDING SUPERINTENDENT LOWER IN SUPERVISOR [address] [facility] 741 [place] [address] documented as of this encounter
--- OUTSIDE RECORDS SUMMARY | 2022-02-19 14:25 | XMS_ITS | Encounter Summary ---
:1980 Author Organization [place] Address [address] [place] [address] Care Team Providers Name Role Phone Nelda Peña ADVANCED MANAGER TOBACCO BALER Primary Care Provider Jose Lopez OD Unavailable Jillian Dubois APRN TOBACCO BALER Unavailable [phone] Nelda Peña APRN TOBACCO BALER Unavailable [phone] Nawaf Morocho MD Unavailable Lottie Cedillo PA-C Unavailable Azeem Lindsey ADVANCED MANAGER TOBACCO BALER Unavailable [phone] Teodoro Joaquin MD Unavailable [phone] Jillian Dubois APRN TOBACCO BALER Unavailable [phone] Reason for Visit Reason Comments Urgent Care Derm Problem Cyst on neck-Started y-Patient on abx until tomorrow-Was seen in Urgent Care Friday Encounter Details Date Type Department Care Team Description 02/02/2021 Office Visit [facility] Aditya Bill Infected sebaceous cyst (Primary Dx); Urgent Care Thi Valenzuela MD Type 1 diabetes mellitus with complicati ons (P) [address] [address]A [address] [place] [id number] Social History Tobacco Use Types Packs/Day Years [...] at Date Recorded Female 05/08/2020 12:57 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 documented as of this encounter Last Filed Vital Signs Vital Sign Reading Time Taken Comments Blood Pressure 113/70 02/02/2021 10:55 AM CDT Pulse 104 02/02/2021 10:55 AM CDT Temperature 37.1 ??C (98.7 ??F) 02/02/2021 10:55 AM CDT Respiratory Rate 12 02/02/2021 10:55 AM CDT Oxygen Saturation 97% 02/02/2021 10:55 AM CDT Inhaled Oxygen Concentration - - Weight - - Height - - Body Mass Index - - documented in this encounter Patient Instructions Patient InstructionsAditya Bill MD - 02/02/2021 10:50 AM CDT Images from the original note were not included. Patient Education Infected Epidermoid Cyst (Antibiotic Treatment) You have an epidermoid cyst. This is a small, painless lump under your skin. An epidermoid cyst??is often called an epidermal cyst, an epidermal inclusion cyst, or incorrectly, a sebaceous cyst. Epidermoid cysts form slowly under the skin. They can be found on most parts of the body. But they are mostoften found on areas with more hair such as the scalp, face, upper back, and genitals. Here are some general facts??about these cysts: ?? A cyst is a sac filled with material that is often cheesy, fatty, oily, or stringy. The material inside can be thick. Or it can be a liquid. ?? The area around the cyst may smell bad. If the cyst breaks open, the material inside it often smells bad as well. ?? You can usually move the cyst slightly if you try. ?? The cyst can be smaller than a pea or as large as a few inches. ?? The cyst is usually not painful, unless it becomes inflamed or infected. Your cyst became infected and your healthcare provider wants to treat it with antibiotics. You will likely take the antibiotics by mouth or apply it as a cream, or both. If the antibiotics don???t clear up the infection, the cyst will need to be drained by making a small cut (incision). Local anesthesia will be used to numb the area before the incision and drainage. Home care ?? Resist the temptation to squeeze or pop the cyst, stick a needle in it, or cut it open. This often leads to a worsening infection and scarring. ?? If antibiotic pills were prescribed, take them exactly as directed. Finish the antibiotic prescribed, even though you may feel better after the first few days. ?? Soak the affected area in hot water or apply a hot pack (a thin, clean towel soaked in hot water)for 20 minutes at a time. Do this 3 to 4 times a day. ?? If your healthcare provider recommended it, apply antibiotic cream or ointment 2 to 3 times a day. ?? You may use pxlg-iyc-zqkzoji pain medicine to control pain, unless another medicine was given. Ifyou have chronic liver or kidney disease or ever had a stomach ulcer or gastrointestinal bleeding, talk with your healthcare provider before using these medicines. Prevention Once this infection has healed, reduce the risk of future infections by: ?? Keeping the cyst area clean by bathing or showering daily ?? Avoiding tight-fitting clothing in the cyst area Follow-up care Follow up with your healthcare provider, or as advised. If a gauze packing was put in your wound, itshould be removed in a few days as advised by your healthcare provider. Check your wound every day for the signs listed below. When to seek medical advice Call your healthcare provider right away if any of these occur: ?? Pus coming from the cyst ?? Increasing redness around the wound ?? Increasing local pain or swelling ?? Fever of 100.4??F (38??C) or higher, or as directed by your provider Derick last reviewed this educational content on 09/28/2018 ?? [id number] [employer]. All rights reserved. This information is not intended as a substitute for professional medical care. Always follow your healthcare professional's instructions. documented in this encounter Progress Notes Aditya Bill MD - 02/02/2021 10:50 AM CDT ASSESSMENT/ PLAN: Infected sebaceous cyst - sulfamethoxazole-trimethoprim (BACTRIM DS) 800-160 MG tablet Go to Urgent care or Emergency Department if worsening fevers/chills and/or spreading infection. Warm, moist packs or towels can be applied to the region to aid in resolution of the infection. Use Tylenol or ibuprofen for pain or fever. The wound should be covered with absorptive gauze until drainage from the site resolves 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) Last hgb a1c 10.9 two months ago We discussed that the body's ability to fight off infections is greatly impaired by high blood sugars, so the patient is advised to try to diligently monitor and treat the blood sugar to help the body's healing I recommend that the patient perform frequent blood sugar tests with sliding scale insulin before meals or 3-4 times per day. As the infection resolves the need for extra insulin will decrease. Procedure note Informed consent given verbally by patient to perform incision and drainage of the involved area Anesthesia: Wound was locally injected with 10 cc's of Lidocaine 2% with epinephrine Prepped and draped in the usual fashion Wound and surrounding skin was cleaned with antiseptic - povidone The wound was incised with a scalpal with drainage of a small amount of purulent material Wound irrigated with 2 % lidocaine - 3 cm transverse incision in area of erythema and fullness The tissue was very fibrous, with small area of drainage of pus Wound packing was placed inside the cavity of wound- The wound will require removal of the packing in 2 days Bandage was applied Patient tolerated the procedure well SUBJECTIVE: Chief Complaint Patient presents with ??? Urgent Care ??? Derm Problem Cyst on neck-Started Friday-Patient on abx until tomorrow-Was seen in Urgent Care Friday Aditya Méndez is a 40 year old female who presents for evaluation of and area of redness, tenderness, swelling and warmth of the skin that developed on the Midline posterior base of the neck, . Patient has had pain, skin erythema (reddened skin) and tenderness for 6 days. Precipitating event was unknown, - Likely sebaceous cyst. Therapies tried: has been taking bactrim for 6 days, with persistent erythema, Some drainage and scabs on the skin. Past Medical History: Diagnosis Date ??? Acne cystica ??? Adenomyosis ??? Asthma ??? Depression ??? Dysmenorrhea ??? H/O seasonal allergies ??? Type I (juvenile type) diabetes mellitus without mention of complication, not stated as uncontrolled 1981 age 10 months Patient Active Problem List Diagnosis ??? 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 Abnormal uterine bleeding (AUB) ??? Morbid obesity (H) ALLERGIES: Hay fever & [a.r.m.] and No clinical screening - see comments MEDs augmented betamethasone dipropionate (DIPROLENE-AF) 0.05 % external cream, Apply topically 2 times daily Do not apply to face, groin, or armpits Calcium Carb-Cholecalciferol (CALCIUM 500+D PO), cetirizine (ZYRTEC) 10 MG tablet, Take 10 mg by mouth daily citalopram (CELEXA) 40 MG tablet, Take 1 tablet (40 mg) by mouth daily Continuous Blood Gluc Ecotherapist (FREESTYLE LEATHA 14 DAY READER) MARY, 1 Application 5 times daily Continuous Blood Gluc Sensor (FREESTYLE LEATHA 14 DAY SENSOR) [facility], Change every 14 days. For additional refills, please schedule a follow-up appointment at [phone] Continuous Blood Gluc Sensor (FREESTYLE LEATHA 14 DAY SENSOR) [facility], 1 Application 4 times daily Digestive Enzymes (PAPAYA AND ENZYMES PO), fluconazole (DIFLUCAN) 150 MG tablet, Injection Device for insulin (INPEN [id number]) MARY, 2 each 4 times daily (before meals and nightly) Injection Device for insulin (INPEN [id number]) MARY, 1 each 4 times daily (before meals and nightly) insulin aspart (FIASP FLEXTOUCH) 100 UNIT/ML pen-injector, Inject 1-15 Units Subcutaneous 4 times daily MDD 55 units insulin aspart (NOVOLOG VIAL) 100 UNITS/ML vial, 14 units with meals and correction 04/24 >150 insulin glargine (LANTUS PEN) 100 UNIT/ML pen, Inject 46 Units Subcutaneous At Bedtime insulin lispro (HUMALOG PENFILL) 100 UNIT/ML Cartridge, Inject 1-12 Units Subcutaneous 4 times daily(with meals and nightly) insulin syringe 31G X 5/16 0.5 ML [facility], 1 Application 4 times daily (before meals and nightly) multivitamin w/minerals (MULTI-VITAMIN) tablet, Take 1 tablet by mouth daily norethindrone (AYGESTIN) 5 MG tablet, Take 1 tablet (5 mg) by mouth daily norethindrone (MICRONOR) 0.35 MG tablet, Take 1 tablet (0.35 mg) by mouth daily OMEPRAZOLE PO, propranolol (INDERAL) 10 MG tablet, Take 1-2 tablets (10-20 mg) by mouth 2 times daily as needed (anxiety/agitation) spironolactone (ALDACTONE) 100 MG tablet, Take 1 tablet by mouth once daily sulfamethoxazole-trimethoprim (BACTRIM DS) 800-160 MG tablet, tretinoin (RETIN-A) 0.025 % external cream, Apply topically At Bedtime Pea-sized amount to the wholeface. Start every other night and increase frequency over a period of weeks (Patient not taking: Reported on 02/02/2021) lidocaine (PF) (XYLOCAINE) 2 % injection 5 mL LORazepam (ATIVAN) tablet 1 mg Social History [...] ??? Macular Degeneration No family hx of ROS: CONSTITUTIONAL:low grade fever, chills EYES: NEGATIVE for vision changes or irritation ENT/MOUTH: NEGATIVE for ear, mouth and throat problems RESP:NEGATIVE for significant cough or SOB GI: NEGATIVE for nausea, abdominal pain or change in bowel habits OBJECTIVE: BP 113/70 Pulse 104 Temp 98.7 ??F (37.1 ??C) (Oral) Resp 12 LMP (LMP Unknown) SpO2 97% No Skin area involved is 8 cm by 6 cm on the midline base of the neck , . The skin appear erythematous,moderately swollen, with tenderness and warmth to the touch. Skin is raised with scabs on the surface, no purulent drainage- Surface skin peeling from inflammation EYES: EOMI, conjunctiva clear HENT: External ears with no swelling or lesions Nose and lips without Swelling, ulcers, erythema or lesions NECK: normal pain free ROM RESP: no labored respirations, no tachypnea EXTREMITIES: Full ROM without expression of pain or limitation x 4 extremities NEURO: Normal strength and tone, ambulation without difficulty, normal speech and mentation CUTTING TEACHER documented in this encounter Miscellaneous Notes Addendum Note - Aditya Bill MD - 02/02/2021 10:50 AM CDT Addended by: ADITYA BILL on: 02/04/2021 08:58 PM Modules accepted: Orders CUTTING TEACHER documented in this encounter Plan of Treatment Upcoming Encounters Date Type Specialty Care Team Description 04/04/2022 Office Visit unix systems administrator Kaela Dubois APRN [facility] [address] [place] [address] (Wo rk) 04/23/2022 Virtual Visit Endocrinology Lottie Cedillo PA-C [address] [place], [place] [phone] (Wo rk) documented as of this encounter Procedures Procedure Name Priority Date/Time Associated Diagnosis Comme nts SD DRAIN SKIN ABSCESS Routine 02/04/2021 8:57 PM MEAT CUTTING TEACHER Infected sebaceous cyst SIMPLE/SINGLE documented in this encounter Visit Diagnoses Diagnosis Infected sebaceous cyst - Primary Sebaceous cyst Type 1 diabetes mellitus with complicati ons (H) documented in this encounter Additional Health Concerns Assessment Noted Time PHQ-9 Depression Total Score: 0 04/06/2019 1:16 PM MEAT CUTTING TEACHER documented as of this encounter Care Teams Batchmaker Relationship Specialty Start Date End Date Nelda Peña, PCP - General Nurse Practitioner 02/02/18 [facility] [address] [facility] [address] [place], [place] [address] Jose Lopez OD MD Optometry 03/04/18 Jillian Dubois Nurse Practitioner Nurse Practitioner 08/17/18 [facility]AW [place] [facility] [address] [place] [address] Nelda Peña Assigned PCP 03/12/20 03/03/21 ADVANCED MANAGER TOBACCO BALER 420 [facility] [address] [place] [address] Nawaf Morocho MD Dermatology 04/24/20 [facility] [address] [facility] [address] [place] [address] Lottie Cedillo, Assigned Endocrinology 06/14/20 PA-C Provider [address] [place] [address] Azeem Lindsey, Assigned Behavioral 06/18/20 ADVANCED MANAGER [facility] Health Provider [address] [place] [address] Liz Kirkland, Assigned Surgical 12/10/20 MD Teodoro Provider [address] [place] [address] Jillian Dubois Assigned OBGYN Provider 01/28/21 SHAW [place] [facility] [address] [place] [phone] documented as of this encounter
--- OUTSIDE RECORDS SUMMARY | 2022-02-19 14:25 | XMS_ITS | Encounter Summary ---
:1980 Author Organization [place] Address [facility] [place] [address] Care Team Providers Name Role Phone Nelda Peña APRN CODER OPERATOR Primary Care Provider [phone] Jose Lopez OD Unavailable Jillian Dubois APRN CODER OPERATOR Unavailable [phone] Nelda Peña APRN CODER OPERATOR Unavailable [phone] Nawaf Morocho MD Unavailable Lottie Cedillo PA-C Unavailable Azeem Lindsey DEVULCANIZER LOADER CODER OPERATOR Unavailable [phone] Teodoro Joaquin MD Unavailable [phone] Jillian Dubois APRN CODER OPERATOR Unavailable Encounter Details Date Type Department Care Team Description 02/01/2021 Travel Social History Tobacco Use Types Packs/Day [...] at Date Recorded Female 05/08/2020 12:57 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 documented as of this encounter Plan of Treatment Upcoming Encounters Date Type Specialty Care Team Description 04/04/2022 Office Visit automatic wheel line operator Kaela Dubois APRN CODER OPERATOR [facility] [address] [place] [phone] (Wo rk) 04/23/2022 Virtual Visit Endocrinology Lottie Cedillo PA-C [address] [place], [place] [address] (Wo rk) documented as of this encounter Visit Diagnoses Not on filedocumented in this encounter Additional Health Concerns Assessment Noted Time PHQ-9 Depression Total Score: 0 04/06/2019 1:16 PM PUMPING STATION SUPERVISOR documented as of this encounter Care Teams Electron Microscopist Relationship Specialty Start Date End Date Nelda Peña, PCP - General Nurse Practitioner 02/02/18 DEVULCANIZER LOADER CODER OPERATOR 420 [facility] [address] [place], [place] [address] Jose Lopez OD MD Optometry 03/04/18 Jillian Dubois Nurse Practitioner Nurse Practitioner 08/17/18 SHAW Infante [facility] [address] [place] [address] Nelda Peña, Assigned PCP 03/12/20 03/03/21 DEVULCANIZER LOADER [facility] 420 [facility] [address] [place] [address] Nawaf Morocho MD Dermatology 04/24/20 [facility] 516 [facility] 98 [place], [place] [id number] Lottie Cedillo, Assigned Endocrinology 06/14/20 PA-C Provider [address] [place] [address] Azeem Lindsey, Assigned Behavioral 06/18/20 [facility] Provider [address] [place] [address] Liz Kirkland, Assigned Surgical 12/10/20 MD Teodoro Provider [address] [place] [address] Jillian Dubois Assigned OBGYN Provider 01/28/21 [facility]AW [place] [facility] [address] [place] [phone] documented as of this encounter
--- OUTSIDE RECORDS SUMMARY | 2022-02-19 14:25 | XMS_ITS | Encounter Summary ---
:1980 Author Organization [place] Address [address] [place] [address] Care Team Providers Name Role Phone Nelda Peña [facility] TIE IN MACHINE OPERATOR Primary Care Provider [phone] Jose Lopez OD Unavailable Jillian Dubois [facility] TIE IN MACHINE OPERATOR Unavailable [phone] Nelda Peña [facility] TIE IN MACHINE OPERATOR Unavailable [phone] Seda Moy MD Unavailable [phone] Nawaf Morocho MD Unavailable Lottie Cedillo PA-C Unavailable Azeem Lindsey APRN TIE IN MACHINE OPERATOR Unavailable [phone] Teodoro Joaquin MD Unavailable [phone] Encounter Details Date Type Department Care Team Description 01/01/2021 [facility] Lottie Cedillo, Endocrinology Clinic [facility] [address] [address] [address] Floor [place] [phone] Social History Tobacco Use Types Packs/Day Years [...] at Date Recorded Female 05/08/2020 12:57 PM TOP 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 documented as of this encounter Plan of Treatment Upcoming Encounters Date Type Specialty Care Team Description 04/04/2022 Office Visit barrel raiser helper Kaela Dubois, SHAW TIE IN MACHINE OPERATOR [facility] [address] [place] [address] (Wo rk) 04/23/2022 Virtual Visit Endocrinology Lottie Cedillo PA-C [address] [place], [place] [address] (Wo rk) documented as of this encounter Visit Diagnoses Not on filedocumented in this encounter Additional Health Concerns Assessment Noted Time PHQ-9 Depression Total Score: 0 04/06/2019 1:16 PM TOP FLAVOR ATTENDANT documented as of this encounter Care Teams Him Coder Relationship Specialty Start Date End Date Nelda Peña, PCP - General Nurse Practitioner 02/02/18 [facility] TIE IN MACHINE OPERATOR 420 [facility] [address] [place] [phone] Jose Lopez OD MD Optometry 03/04/18 Jillian Dubois Nurse Practitioner Nurse Practitioner 08/17/18 SHAW Infante [facility] [address] [place] [address] Nelda Peña, Assigned PCP 03/12/20 03/03/21 [facility] TIE IN MACHINE OPERATOR 420 [facility] [address] [place] [address] Seda Moy Assigned OBGYN Provider 01/21/20 01/27/21 MD Jai [address] [place] [address] Nawaf Morocho MD Dermatology 04/24/20 [facility] 516 [facility] 98 [place] [address] Lottie Cedillo, Assigned Endocrinology 06/14/20 PA-C Provider [address] [place] [address] Azeem Lindsey, Assigned Behavioral 06/18/20 [facility] [address] [facility] [place] [address] Liz Kirkland, Assigned Surgical 12/10/20 MD Teodoro Provider [address] [place] [address] documented as of this encounter
--- OUTSIDE RECORDS SUMMARY | 2022-02-19 14:25 | XMS_ITS | Encounter Summary ---
:1980 Author Organization [place] Address [address] [place] [address] Care Team Providers Name Role Phone Nelda Peña ULTRA SOUND TECHNICIAN WIRELESS SALES EXPERT Primary Care Provider Jose Lopez OD Unavailable Jillian Dubois APRN WIRELESS SALES EXPERT Unavailable [phone] Nelda Peña APRN WIRELESS SALES EXPERT Unavailable [phone] Seda Moy MD Unavailable [phone] Nawaf Morocho MD Unavailable Lottie Cedillo PA-C Unavailable Azeem Lindsey APRN WIRELESS SALES EXPERT Unavailable [phone] Teodoro Joaquin MD Unavailable [phone] Encounter Details Date Type Department Care Team Description 01/18/2021 Travel Social History Tobacco Use Types Packs/Day [...] at Date Recorded Female 05/08/2020 12:57 PM HEALTH SERVICES INFORMATION SPECIALIST COVID-19 Exposure Response Date Recorded In the last month, have you been in contact with No / Unsure 01/18/2021 2:37 PM CDT someone who was confirmed or suspected to have Coronavirus / COVID-19? documented as of this encounter Plan of Treatment Upcoming Encounters Date Type Specialty Care Team Description 04/04/2022 Office Visit assembler tester Kaela Dubois APRN WIRELESS SALES EXPERT [facility] [address] [place], [place] [id number] (Wo rk) 04/23/2022 Virtual Visit Endocrinology Lottie Cedillo PA-C [address] [place], [place] [address] (Wo rk) documented as of this encounter Visit Diagnoses Not on filedocumented in this encounter Additional Health Concerns Assessment Noted Time PHQ-9 Depression Total Score: 0 04/06/2019 1:16 PM HEALTH SERVICES INFORMATION SPECIALIST documented as of this encounter Care Teams Shredded Filler Hopper Feeder Relationship Specialty Start Date End Date Nelda Peña, PCP - General Nurse Practitioner 02/02/18 ULTRA SOUND TECHNICIAN WIRELESS SALES EXPERT [address] [facility] [address] [place] [address] Jose Lopez OD MD Optometry 03/04/18 Jillian Dubois Nurse Practitioner Nurse Practitioner 08/17/18 SHAW Infante [facility] [address] [place] [address] Nelda Peña, Assigned PCP 03/12/20 03/03/21 ULTRA SOUND TECHNICIAN WIRELESS SALES EXPERT 420 [facility] [address] [place] [address] Seda Moy Assigned OBGYN Provider 01/21/20 01/27/21 MD Jai [address] [place] [address] Nawaf Morocho MD Dermatology 04/24/20 [facility] 516 [facility] [address] [place] [address] Lottie Cedillo, Assigned Endocrinology 06/14/20 PA-C Provider [address] [place] [address] Azeem Lindsey, Assigned Behavioral 06/18/20 ULTRA SOUND TECHNICIAN [facility] Provider [address] [place] [address] Liz Kirkland, Assigned Surgical 12/10/20 MD Teodoro Provider [address] [place] [address] documented as of this encounter
--- OUTSIDE RECORDS SUMMARY | 2022-02-19 14:25 | XMS_ITS | Encounter Summary ---
:1980 Author Organization [place] Address [address] [place] [address] Care Team Providers Name Role Phone Nelda Peña TELEGRAPH OFFICE MANAGER PANEL SAW OPERATOR Primary Care Provider Jose Lopez OD Unavailable Jillian Dubois TELEGRAPH OFFICE MANAGER PANEL SAW OPERATOR Unavailable [phone] Nelda Peña TELEGRAPH OFFICE MANAGER PANEL SAW OPERATOR Unavailable [phone] Seda Moy MD Unavailable [phone] Nawaf Morocho MD Unavailable Lottie Cedillo PA-C Unavailable Azeem Lindsey TELEGRAPH OFFICE MANAGER PANEL SAW OPERATOR Unavailable [phone] Teodoro Joaquin MD Unavailable [phone] Encounter Details Date Type Department Care Team Description 12/25/2020 Orders Only [facility] Juliana, Type 1 farhan [facility] Elliott Ash N mellitus with [place] [phone] complications (H) [address] (Work) (Primary Dx) [address] [place] [address] Social History Tobacco Use Types Packs/Day Years [...] at Date Recorded Female 05/08/2020 12:57 PM MOTION PICTURE PROJECTIONIST COVID-19 Exposure Response Date Recorded In the last month, have you been in contact with No / Unsure 12/25/2020 3:12 PM CDT someone who was confirmed or suspected to have Coronavirus / COVID-19? documented as of this encounter Plan of Treatment Upcoming Encounters Date Type Specialty Care Team Description 04/04/2022 Office Visit emergency services professional Kaela Dubois APRN [facility] [address] [place], [place] [address] (Wo rk) 04/23/2022 Virtual Visit Endocrinology Lottie Cedillo PA-C [address] [place] [id number] (Wo rk) documented as of this encounter Results (ABNORMAL) Albumin Random Urine Quantitative with Creat Ratio (09/25/2021 12:10 PM CDT) [facility] Method Time Signature Creatinine 29 mg/dL 09/27/2021 [...] City/State/ZIP Code Phon e Number OX LABORATORY [facility] [place], [place] [phone] [place] [facility] [id number] Lab (no room number, 1st floor of clinic) OX LABORATORY [place], [place] [phone] [facility] [place] [id number] [place] [facility] [address] Lab (no room number, 1st floor of clinic) documented in this encounter Visit Diagnoses Diagnosis Type 1 diabetes mellitus with complicati ons (H) - Primary documented in this encounter Additional Health Concerns Assessment Noted Time PHQ-9 Depression Total Score: 0 04/06/2019 1:16 PM MOTION PICTURE PROJECTIONIST documented as of this encounter Care Teams Enrollment Coordinator Relationship Specialty Start Date End Date Nelda Peña, PCP - General Nurse Practitioner 02/02/18 TELEGRAPH OFFICE MANAGER [facility] 420 [facility] [address] [place] [address] Jose Lopez OD MD Optometry 03/04/18 Jillian Dubois Nurse Practitioner Nurse Practitioner 08/17/18 SHAW Infante [facility] [address] [place], [place] [address] Nelda Peña, Assigned PCP 03/12/20 03/03/21 TELEGRAPH OFFICE MANAGER PANEL SAW OPERATOR 420 [facility] [address] [place], [place] [address] Seda Moy Assigned OBGYN Provider 01/21/20 01/27/21 MD Jai [address] [place] [address] [place] [address] Nawaf Morocho MD Dermatology 04/24/20 [facility] 516 [facility] 98 [place], [place] [id number] Lottie Cedillo, Assigned Endocrinology 06/14/20 PA-C Provider [address] [place] [address] Azeem Lindsey, Assigned Behavioral 06/18/20 [facility] Provider [address] [place] [address] Liz Kirkland, Assigned Surgical 12/10/20 MD Teodoro Provider [address] [place] [address] documented as of this encounter
--- OUTSIDE RECORDS SUMMARY | 2022-02-19 14:25 | XMS_ITS | Encounter Summary ---
:1980 Author Organization [place] Address [address] [place] [address] Care Team Providers Name Role Phone Nelda Peña LOGISTICIAN CERTIFIED REAL ESTATE APPRAISER Primary Care Provider [phone] Jose Lopez OD Unavailable Jillian Dubois LOGISTICIAN CERTIFIED REAL ESTATE APPRAISER Unavailable [phone] Nelda Peña LOGISTICIAN CERTIFIED REAL ESTATE APPRAISER Unavailable [phone] Seda Moy MD Unavailable [phone] Nawaf Morocho MD Unavailable Lottie Cedillo PA-C Unavailable Azeem Lindsey LOGISTICIAN CERTIFIED REAL ESTATE APPRAISER Unavailable [phone] Teodoro Joaquin MD Unavailable [phone] Reason for Visit Reason Onset Date Comments Clinic Care Coordination - Follow-up 12/25/2020 Peg ble to reach Encounter Details Date Type Department Care Team Description 12/25/2020 [facility] AttJose Alejandro cook in Care Coordination Health & Addiction - Follow- up (Unable to [facility] [address] [place] [address] Social History Tobacco Use Types Packs/Day Years [...] at Date Recorded Female 05/08/2020 12:57 PM MONOTYPE MACHINIST COVID-19 Exposure Response Date Recorded In the last month, have you been in contact with No / Unsure 12/25/2020 3:12 PM CDT someone who was confirmed or suspected to have Coronavirus / COVID-19? documented as of this encounter Miscellaneous Notes Telephone Encounter - Naila Choi CMA - 12/25/2020 4:29 PM CDT Timber Estimator also called at 4:29 but no answer. Luciana Choi CMA Telephone Encounter - Jose Alejandro Machuca - 12/25/2020 4:10 PM CDT On December 25, 2020, at 4:10 PM, chart writer called patient at mobile to confirm Virtual Visit. Timber Estimator unable to make contact with patient. Timber Estimator left detailed voice message for call back. [phone] left as call back number. JO Bolaños documented in this encounter Plan of Treatment Upcoming Encounters Date Type Specialty Care Team Description 04/04/2022 Office Visit care center manager Kaela Dubois APRN [facility] [address] [place] [address] (Wo rk) 04/23/2022 Virtual Visit Endocrinology Lottie Cedillo PA-C [address] [place] [address] (Wo rk) documented as of this encounter Visit Diagnoses Not on filedocumented in this encounter Additional Health Concerns Assessment Noted Time PHQ-9 Depression Total Score: 0 04/06/2019 1:16 PM MONOTYPE MACHINIST documented as of this encounter Care Teams Financial Planning Assistant Relationship Specialty Start Date End Date Nelda Peña, PCP - General Nurse Practitioner 02/02/18 LOGISTICIAN [facility] 420 [facility] [address] [place] [address] Jose Lopez OD MD Optometry 03/04/18 Jillian Dubois Nurse Practitioner Nurse Practitioner 08/17/18 SHAW Infante [facility] [address] [place] [address] Nelda Peña, Assigned PCP 03/12/20 03/03/21 LOGISTICIAN [facility] 420 [facility] [address] [place] [address] Seda Moy Assigned OBGYN Provider 01/21/20 01/27/21 MD Jai [address] [facility] [address] [place] [address] Nawaf Morocho MD Dermatology 04/24/20 [facility] 516 [facility] 98 [place] [address] Lottie Cedillo, Assigned Endocrinology 06/14/20 [facility] Provider [address] [place] [address] Azeem Lindsey, Assigned Behavioral 06/18/20 [facility] Provider [address] [place] [address] Liz Kirkland, Assigned Surgical 12/10/20 MD Teodoro Provider [address] [place] [address] documented as of this encounter
--- OUTSIDE RECORDS SUMMARY | 2022-02-19 14:25 | XMS_ITS | Encounter Summary ---
:1980 Author Organization [place] Address [facility] [place] [address] Care Team Providers Name Role Phone Nelda Peña TERMINAL BLOCK ASSEMBLER SALES REPRESENTATIVE PRINTING Primary Care Provider [phone] Jose Lopez OD Unavailable Jillian Dubois APRN SALES REPRESENTATIVE PRINTING Unavailable [phone] Nelda Peña TERMINAL BLOCK ASSEMBLER SALES REPRESENTATIVE PRINTING Unavailable [phone] Seda Moy MD Unavailable [phone] Nawaf Morocho MD Unavailable Nawaf Morocho MD Unavailable Lottie Cedillo PA-C Unavailable Azeem Lindsey APRN SALES REPRESENTATIVE PRINTING Unavailable [phone] Reason for Visit Reason Comments Recheck Medication Recurrent major depressive d isorder, in full remission (H) Mental Health Outpatient (Routine) - Closed Specialty Diagnoses / Procedures Referred By Contact Refer red To Contact Psychiatry Diagnoses LISA Murray Confirmed DS 04/21 Nancy Priest Procedures VIDEO VISIT NEW Referral ID Status Reason Start Date Expiration Date Visits Requ ested Visits Authorized [id number] Closed 05/08/2020 03/30/2021 26 26 Encounter Details Date Type Department Care Team Description 11/21/2020 Virtual Visit [facility] Azeem Lindsey Anxi ety (Primary Dx) Mental Health & TERMINAL BLOCK ASSEMBLER SALES REPRESENTATIVE PRINTING Addiction [id number] [place] [address] [address] [place], [place] [address] [place] [address] Social History Tobacco Use Types Packs/Day Years [...] at Date Recorded Female 05/08/2020 12:57 PM INTERVENTION SPECIALIST COVID-19 Exposure Response Date Recorded In the last month, have you been in contact with No / Unsure 10/25/2020 8:48 AM CDT someone who was confirmed or suspected to have Coronavirus / COVID-19? documented as of this encounter Patient Instructions Patient Susie Forman CMA - 11/21/2020 5:00 PM CDT For crisis resources, please see the information at the end of this document Patient Education Thank you for coming to the [facility]. Lab Testing: If you had lab testing today and your results are reassuring or normal they will be mailed to you orsent through [employer] within 7 days. If the lab tests need quick action we will call you with the results. The phone number we will call with results is # [phone] (home) . If this is not the best number please call our clinic and change the number. Medication Refills: If you need any refills please call your pharmacy and they will contact us. Our fax number for refills is [phone]. Please allow three business for refill processing. If you need to sweet pickled fruit maker your refill at a new pharmacy, please contact the new pharmacy directly. The new pharmacy will help you get your medications transferred. Scheduling: If you have any concerns about today's visit or wish to schedule another appointment please call ouroffice during normal business hours [phone] (8- 5:00 M-F) Contact Us: Please call [phone] during business hours (8-5:00 M-F). If after clinic hours, or on the weekend, please call [phone]. Financial Assistance [phone] [facility] Billing [phone] Central Billing Office, [facility]: [phone] [facility] Billing [phone] Medical Records [phone] [facility] Patient Bill of Rights [email or web address] MENTAL HEALTH CRISIS NUMBERS: For a medical emergency please call 911 or go to the nearest ER. [facility]: [facility] -[phone] Crisis Residence [facility] -[phone] Walk-In Counseling Center [facility] -[phone] [place] 21/10 [place] Mobile Team -[phone] (adults)/[phone] (child) CHILD: [facility] needs assessment team - [phone] [facility]: [facility] - [phone] Walk-in counseling [facility] - [phone] Walk-in counseling [facility] - [phone] Crisis Residence [facility] - [phone] Urgent Care Adult Mental Scwydx-[phone] mobile unit/ 21/10 crisis line National Crisis Numbers: National Suicide Prevention Lifeline: 1-016-509-TALK (114-838-5662) Poison Control Center - [employer]/resources for a list of additional resources (SOS) Trans Lifeline a hotline for transgender people The [employer] a hotline for LGBT youth Crisis Text Line: For any crisis 21/10 To: 453302 see www.crisistextline.org - IF MAKING A CALL FEELS TOO HARD, send a text! Again thank you for choosing [facility] and please let us know how we can best partner with you to improve you and your family's health. You may be receiving a survey regarding this appointment. We would love to have your feedback, both positive and negative. The survey is done by an external company, so your answers are anonymous. documented in this encounter Progress Notes Azeem Lindsey, SHAW SALES REPRESENTATIVE PRINTING - 11/21/2020 5:00 PM CDT Images from the original note were not included. Video- Visit Details Type of service: video visit for medication management Time of service: ??? Date: 11/21/2020 ??? Video Start Time: 5:06 PM Video End Time: 5:36pm Reason for video visit: Patient unable to travel due to Covid-19 Originating Site (patient location): [facility] Location- Patient's home Distant Site (provider location): Remote location Mode of Communication: Video Conference via AmWell Consent: Patient has given verbal consent for video visit?: Yes VIDEO VISIT Tamiko Méndez is a 39 year old patient who is being evaluated via a billable video visit. The patient has been notified of following: This video visit will be conducted via a call between you and your physician/provider. We have found that certain health care needs can be provided without the need for an in-person physical exam. This service lets us provide the care you need with a video conversation. If a prescription is necessarywe can send it directly to your pharmacy. If lab work is needed we can place an order for that and you can then stop by our lab to have the test done at a later time. Insurers are generally covering virtual visits as they would in-office visits so billing should not be different than normal. If for some reason you do get billed incorrectly, you should contact the billing office to correct it and thatnumber is in the AVS?? . Video Conference to be completed via: [employer] Patient has given verbal consent for video visit?: Yes Patient would prefer that any video invitations be sent by: Send to e-mail at: [email or web address] How would patient like to obtain AVS?: [employer] AVS SmartPhrase [PsychAVS] has been placed in 'Patient Instructions': Yes [facility] PSYCHIATRIC PROGRESS NOTE Tamiko Méndez is a 39 year old pt who prefers the name Betty and pronoun she, her. Pertinent Background: See previous notes. Psych critical item history includes [no critical items]. Interim History [4, 4] The patient is a good historian, reports good treatment adherence and was last seen 05/15/20. Since the last visit, Betty reports she is ok. However, she does endorse concerns about her rage. She finds herself lashing out at friends and loved ones. She states being angry and picking fights gives her a sense of control. At times when she doesn't feel seen or heard, she lashes out to be both seen and heard. Betty reports that her anger may stem from untreated/unresolved trauma. Manifests as palpitations, shortness of breath, and body tension. Also endorses increased negative self-talk in September. Anxiety also worsened due to work stress. 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 Her also left his job without having another in place. Occasional transient SI without plan or intent when feeling stressed and overwhelmed. .Recommended therapy should be primary focus. Betty stated she would investigate therapists close to her home and set up appointment. Will start PRN Propranolol for agitation. Provided education on how it may impact how she perceives possible hypoglycemic episodes. She verbalized understanding. Recent Symptoms: Depression: suicidal ideation without plan, without intent, occasional low mood and negative self talk and mood dysregulation Elevated: none Psychosis: none Anxiety: nervous/overwhelmed and frequent worry, agitation Trauma Related: intrusive memories and negative beliefs / emotions Recent Substance Use: Alcohol- cocktail over other week , Tobacco- no , Caffeine- coffee/ tea [1 cup of coffee and 1 cup of tea daily] and soda [1 diet soda daily], Opioids- no Narcan Kit- N/A , Cannabis- one-hitter per dayand occasional gummy. 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 LEGAL- None EARLY HISTORY/ EDUCATION- Grew up in [place]. Graduated from [employer]. Graduated [employer] with degree in print journalism SOCIAL/ SPIRITUAL SUPPORT- and sister TRAUMA HISTORY (self-report)- see history FEELS SAFE AT HOME- Yes FAMILY HISTORY- Family history of alcoholism, depression, anxiety, and mood dysregulation. Sister diagnosed with Depression and prescribe Medical / Surgical History Patient Active Problem List Diagnosis ??? 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 Abnormal uterine bleeding (AUB) Past Surgical History: Procedure Laterality Date ? ? INDUCED ABORTN BY D&C ??? C ORAL SURGERY PROCEDURE ??? EXTRACTION(S) DENTAL ??? LASER SURGERY OF EYE Left diabetic retinopathy Medical Review of Systems [2,10] A comprehensive review of systems was performed and is negative other than noted in the HPI. Exercise induced asthma Various allergies Allergy Hay fever & [a.r.m.] and No clinical screening - see comments Current Medications Current Outpatient Medications Medication Sig Dispense Refill [...] by mouth daily 90 tablet 3 ??? Continuous Blood Gluc Bonding Machine Operator (FREESTYLE LEATHA 14 DAY READER) MARY 1 Application 5 times daily 1 Device 1 ??? Continuous Blood Gluc Sensor (FREESTYLE LEATHA 14 DAY SENSOR) MISC Change every 14 days. For additional refills, please schedule a follow-up appointment at [phone] 2 each 1 ??? Continuous Blood Gluc Sensor (FREESTYLE LEATHA 14 DAY SENSOR) MISC 1 Application 4 times daily 2 each 3 ??? Digestive Enzymes (PAPAYA AND ENZYMES PO) ??? Injection Device for insulin (INPEN 450-BSWM-QJBFP) MARY 2 each 4 times daily (before meals and nightly) 2 each 0 ??? Injection Device for insulin (INPEN [id number]) MRAY 1 each 4 times daily (before meals and nightly) 2 each 0 ? ? insulin aspart (NOVOLOG VIAL) 100 UNITS/ML vial 14 units with meals and correction 04/24 >150 4 vial 3 ??? insulin glargine (LANTUS PEN) 100 UNIT/ML pen Inject 46 Units Subcutaneous At Bedtime 45 mL 3 ??? insulin lispro (HUMALOG PENFILL) 100 UNIT/ML Cartridge Inject 1-12 Units Subcutaneous 4 times daily (with meals and nightly) 15 mL 11 ??? insulin syringe 31G X 5/16 0.5 ML MISC 1 Application 4 times daily (before meals and nightly) 90 each 3 ??? LORazepam (ATIVAN) 0.5 MG tablet Take 0.5 mg by mouth 2 times daily as needed ??? multivitamin w/minerals (MULTI-VITAMIN) tablet Take 1 tablet by mouth daily ??? norethindrone (AYGESTIN) 5 MG tablet Take 1 tablet (5 mg) by mouth daily 90 tablet 0 ??? norethindrone (MICRONOR) 0.35 MG tablet Take 1 tablet (0.35 mg) by mouth daily 84 tablet 3 ??? OMEPRAZOLE PO ??? spironolactone (ALDACTONE) 100 MG tablet Take 1 tablet by mouth once daily 30 tablet 11 ??? tretinoin (RETIN-A) 0.025 % external cream Apply topically At Bedtime Pea- sized amount to the whole face. Start every other night and increase frequency over a period of weeks 45 g 3 Vitals [3, 3] There were no vitals taken for this visit. Mental Status Exam [9, 14 cog gs] Alertness: alert and oriented Appearance: casually groomed Behavior/Demeanor: cooperative, pleasant and calm, with good eye contact Speech: regular rate and rhythm Language: intact Psychomotor: normal or unremarkable Mood: ok Affect: appropriate; was congruent to mood; was congruent to content Thought Process/Associations: unremarkable Thought Content: Reports none; Denies suicidal ideation and violent ideation Perception: Reports none; Denies auditory hallucinations and visual hallucinations Insight: good Judgment: good Cognition: (6) does appear grossly intact; formal cognitive testing was not done Gait/Station and/or Muscle Strength/Tone: unable to assess Labs and Data Rating Scales: N/A PHQ9 Today: Not completed PHQ 02/17/2018 02/26/2018 04/06/2019 PHQ-9 Total Score 5 3 0 Q9: Thoughts of better off /self-harm past 2 weeks Not at all Not at all Not at all Assessment [m2, h3] Major Depressive Disorder, in remission Generalized Anxiety Disorder (Hx) [place] Prescription Monitoring Program [PAINTINGS RESTORER] was not checked today: provider not managing controlled medications. Plan m2, h3 1) Medications Continue Celexa 40mg daily ??Start Propranolol 10mg BID PRN for agitation and fight or flight episodes 2) Therapy Individual therapy should be primary focus of treatment ? RTC: 1 month CRISIS NUMBERS: Provided routinely in AVS. Treatment Risk Statement: The patient understands the risks, benefits, adverse effects and alternatives. Agrees to treatment with the capacity to do so. No medical contraindications to treatment. Agrees to call clinic for any problems. The patient understands to call 911 or go to the nearest ED if life threatening or urgent symptoms occur. WHODAS 2.0 TODAY total score = N/A; [a 12-item WHODAS 2.0 assessment was not completed by the pt today and/or recorded in EPIC]. PROVIDER: Azeem Lindsey APRN CNP documented in this encounter Plan of Treatment Upcoming Encounters Date Type Specialty Care Team Description 04/04/2022 Office Visit video specialist Kaela Dubois APRN CNP [facility] [address] [place] [address] (Wo rk) 04/23/2022 Virtual Visit Endocrinology Lottie Cedillo PA-C [address] [place], [place] [address] (Wo rk) documented as of this encounter Visit Diagnoses Diagnosis Anxiety - Primary Anxiety state, unspecified documented in this encounter Additional Health Concerns Assessment Noted Time PHQ-9 Depression Total Score: 0 04/06/2019 1:16 PM INTERVENTION SPECIALIST documented as of this encounter Care Teams Freight Car Cleaner Delta System Relationship Specialty Start Date End Date Nelda Peña, PCP - General Nurse Practitioner 02/02/18 TERMINAL BLOCK ASSEMBLER [facility] 420 [facility] [address] [place] [address] Jose Lopez OD MD Optometry 03/04/18 Jillian Dubois Nurse Practitioner Nurse Practitioner 08/17/18 SHAW Infante [facility] [address] [place] [address] Nelda Peña, Assigned PCP 03/12/20 03/03/21 TERMINAL BLOCK ASSEMBLER [facility] 420 [facility] [address] [place], [place] [id number] Seda Moy Assigned OBGYN Provider 01/21/20 01/27/21 MD Jai [address] [facility] [address] [place] [address] Nawaf Morocho MD Dermatology 04/24/[address] [place], [place] [address] Nawaf Morocho, Assigned Surgical 04/30/[address] [place] [address] Lottie Cedillo, Assigned Endocrinology 06/14/20 [facility] Provider [address] [place] [address] Azeem Lindsey, Assigned Behavioral 06/18/20 [facility] Provider [address] [place] [id number] documented as of this encounter
--- OUTSIDE RECORDS SUMMARY | 2022-02-19 14:25 | XMS_ITS | Encounter Summary ---
:1980 Author Organization [place] Address [address] [place] [address] Care Team Providers Name Role Phone Nelda Peña JOB LITHOGRAPHER LICENSE DISTRIBUTOR Primary Care Provider Jose Lopez OD Unavailable Jillian Dubois JOB LITHOGRAPHER LICENSE DISTRIBUTOR Unavailable [phone] Nelda Peña JOB LITHOGRAPHER LICENSE DISTRIBUTOR Unavailable [phone] Seda Moy MD Unavailable [phone] Nawaf Morocho MD Unavailable Lottie CedilloC Unavailable Azeem Lindsey APRN LICENSE DISTRIBUTOR Unavailable [phone] Teodoro Joaquin MD Unavailable [phone] Reason for Visit Reason Onset Date Comments Refill Request 01/04/2021 Continuous Blood Glu c Sensor (FREESTYLE LEATHA 14 DAY [address]) [facility] Encounter Details Date Type Department Care Team Description 01/04/[address] [facility] Lottie Cedillo, Refil l Request Endocrinology Clinic PA-C (Continuous Blood Gluc [place] [address] [place] [address] ST SE Sensor (FREESTYLE LEATHA [address] [place], [place] 14 DAY SENSOR) 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 documented as of this encounter Plan of Treatment Upcoming Encounters Date Type Specialty Care Team Description 04/04/2022 Office Visit drill operator Kaela Dubois APRN [facility] [address] [place], [place] [address] (Wo rk) 04/23/2022 Virtual Visit Endocrinology Lottie Cedillo PA-C [address] [place] [address] (Wo rk) documented as of this encounter Visit Diagnoses Diagnosis Type 1 diabetes mellitus with complicati ons (H) documented in this encounter Additional Health Concerns Assessment Noted Time PHQ-9 Depression Total Score: 0 04/06/2019 1:16 PM WASH HOUSE WORKER documented as of this encounter Care Teams Equipment Hire Manager Relationship Specialty Start Date End Date Nelda Peña, PCP - General Nurse Practitioner 02/02/18 JOB LITHOGRAPHER [facility] [address] [facility] [address] [place], [place] [address] Jose Lopze OD MD Optometry 03/04/18 Jillian Dubois Nurse Practitioner Nurse Practitioner 08/17/18 SHAW Infante [facility] [address] [place] [address] Nelda Peña, Assigned PCP 03/12/20 03/03/21 [facility] [address] [facility] [address] [place], [place] [address] Seda Moy Assigned OBGYN Provider 01/21/20 01/27/21 MD Jai [address] [facility] S [facility] [address] [place] [address] Nawaf Morocho MD Dermatology 04/24/20 [facility] [address] [facility] [address] [place] [address] Lottie Cedillo, Assigned Endocrinology 06/14/20 PA-C Provider [address] [place], [place] [address] Azeem Lindsey, Assigned Behavioral 06/18/20 [facility] Provider [address] [place], [place] [address] Liz Kirkland, Assigned Surgical 12/10/20 MD Teodoro Provider [address] [place] [phone] documented as of this encounter
--- OUTSIDE RECORDS SUMMARY | 2022-02-19 14:25 | XMS_ITS | Encounter Summary ---
:1980 Author Organization [place] Address [address] [place] [address] Care Team Providers Name Role Phone Nelda Peña CUT PRESSMAN PROCESS LINE OPERATOR Primary Care Provider [phone] Jose Lopez OD Unavailable Jillian Dubois APRN PROCESS LINE OPERATOR Unavailable [phone] Nelda Peña APRN PROCESS LINE OPERATOR Unavailable [phone] Seda Moy MD Unavailable [phone] Nawaf Morocho MD Unavailable Lottie Cedillo PA-C Unavailable Azeem Lindsey APRN PROCESS LINE OPERATOR Unavailable [phone] Teodoro Joaquin MD Unavailable [phone] Encounter Details Date Type Department Care Team Description 12/25/2020 Travel Social History Tobacco Use Types Packs/Day [...] at Date Recorded Female 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 documented as of this encounter Plan of Treatment Upcoming Encounters Date Type Specialty Care Team Description 04/04/2022 Office Visit restrike hammer operator Kaela Dubois APRN PROCESS LINE OPERATOR [facility] [address], [place] [address] (Wo rk) 04/23/2022 Virtual Visit Endocrinology Lottie Cedillo PA-C [address] [place], [place] [address] (Wo rk) documented as of this encounter Visit Diagnoses Not on filedocumented in this encounter Additional Health Concerns Assessment Noted Time PHQ-9 Depression Total Score: 0 04/06/2019 1:16 PM INFORMATION SYSTEMS SECURITY OFFICER documented as of this encounter Care Teams Criminal Research Specialist Relationship Specialty Start Date End Date Nelda Peña, PCP - General Nurse Practitioner 02/02/18 CUT PRESSMAN PROCESS LINE OPERATOR [address] [place] [address] [facility] [address] [place] [address] Jose Lopez OD MD Optometry 03/04/18 Jillian Dubois Nurse Practitioner Nurse Practitioner 08/17/18 SHAW Infante [facility] [address] [place] [address] Nelda Peña, Assigned PCP 03/12/20 03/03/21 CUT PRESSMAN PROCESS LINE OPERATOR [address] [facility] [address] [place] [address] Seda Moy Assigned OBGYN Provider 01/21/20 01/27/21 MD Jai [address] [place] [address] Nawaf Morocho MD Dermatology 04/24/20 [facility] [address] [facility] [address] [place] [address] Lottie Cedillo, Assigned Endocrinology 06/14/20 PA-C Provider [address] [place] [address] Azeem Lindsey, Assigned Behavioral 06/18/20 CUT PRESSMAN [facility] Provider [address] [place] [address] Liz Kirkland, Assigned Surgical 12/10/20 MD Teodoro Provider [address] [place] [address] documented as of this encounter
--- OUTSIDE RECORDS SUMMARY | 2022-02-19 14:25 | XMS_ITS | Encounter Summary ---
:1980 Author Organization [place] Address [facility] [place] [address] Care Team Providers Name Role Phone Nelda Peña ADMISSIONS COUNSELOR BLEACH SUPERVISOR Primary Care Provider Jose Lopez OD Unavailable Jillian Dubois APRN BLEACH SUPERVISOR Unavailable [phone] Nelda Peña APRN BLEACH SUPERVISOR Unavailable [phone] Seda Moy MD Unavailable [phone] Nawaf Morocho MD Unavailable Nawaf Morocho MD Unavailable Lottie Cedillo PA-C Unavailable Azeem Lindsey APRN BLEACH SUPERVISOR Unavailable [phone] Reason for Visit Reason Onset Date Comments Refill Request 11/07/2020 Encounter Details Date Type Department Care Team Description 11/07/2020 [facility] Malu Andrews, Refill Request Endocrinology Clinic [facility] [address] [phone] Social History Tobacco Use Types Packs/Day Years [...] at Date Recorded Female 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 documented as of this encounter Plan of Treatment Upcoming Encounters Date Type Specialty Care Team Description 04/04/2022 Office Visit cash management officer Kaela Dubois, SHAW BLEACH SUPERVISOR [facility] [address] [place], [place] [address] (Wo rk) 04/23/2022 Virtual Visit Endocrinology Lottie Cedillo PA-C [address] [place] [id number] (Wo rk) documented as of this encounter Visit Diagnoses Diagnosis Type 1 diabetes mellitus with complicati ons (H) documented in this encounter Additional Health Concerns Assessment Noted Time PHQ-9 Depression Total Score: 0 04/06/2019 1:16 PM BURNISHING MACHINE OPERATOR documented as of this encounter Care Teams Architectural Representative Relationship Specialty Start Date End Date Nelda Peña, PCP - General Nurse Practitioner 02/02/18 ADMISSIONS COUNSELOR BLEACH SUPERVISOR [address] [facility] [address] [place], [place] [address] Jose Lopez OD MD Optometry 03/04/18 Jillian Dubois Nurse Practitioner Nurse Practitioner 08/17/18 SHAW Infante [facility] [address] [place], [place] [address] Nelda Peña, Assigned PCP 03/12/20 03/03/21 ADMISSIONS COUNSELOR BLEACH SUPERVISOR [address] [facility] [address] [place] [address] Seda Myo Assigned OBGYN Provider 01/21/20 01/27/21 MD Jai [address] [place] [address] Nawaf Morocho, Dermatology 04/24/[address] [address] Nawaf Morocho, Assigned Surgical 04/30/[address] [address] Lottie Cedillo, Assigned Endocrinology 06/14/20 PA-C Provider [address] [place], [place] [address] Azeem Lindsey, Assigned Behavioral 06/18/20 ADMISSIONS COUNSELOR [facility] Health Provider [address] [place], [place] [address] documented as of this encounter
--- OUTSIDE RECORDS SUMMARY | 2022-02-19 14:25 | XMS_ITS | Encounter Summary ---
:1980 Author Organization [facility] Address [address] [place] [address] Care Team Providers Name Role Phone Nelda Peña HEAD OF MARKETING ADOMETRY STRETCHING PRESS OPERATOR Primary Care Provider [phone] Jose Lopez OD Unavailable Jillian Dubois HEAD OF MARKETING ADOMETRY STRETCHING PRESS OPERATOR Unavailable [phone] Nelda Peña HEAD OF MARKETING ADOMETRY STRETCHING PRESS OPERATOR Unavailable [phone] Seda Moy MD Unavailable [phone] Nawaf Morocho MD Unavailable Nawaf Morocho MD Unavailable Lottie Cedillo PA-C Unavailable Azeem Lindsey HEAD OF MARKETING ADOMETRY STRETCHING PRESS OPERATOR Unavailable [phone] Teodoro Joaquin MD Unavailable [phone] Reason for Visit Reason Comments Diabetic Retinopathy Follow Up 6 week follow up both e yes. Encounter Details Date Type Department Care Team Description 12/05/2020 Office Visit [facility] Eye Liz Stable proliferative diabetic retinopathy of both eyes associated with type 1 diabetes mellitus (H) (Primary Dx); Clinic - Maximo Kirkland, Nuclear sclerotic cataract o f both eyes; Aris Valerio MD Myopic astigmatism of both eyes; [address] [facility] Proliferative diabetic retinopathy of reynaldo th eyes associated with type 1 diabetes mellitus, unspecified proliferative retinopathy type (H) [address] [place], [place] [address] [address] [place], [place] [phone] [phone] (Work) [phone] Social History Tobacco Use Types Packs/Day Years [...] at Date Recorded Female 05/08/2020 12:57 PM NEON SIGN 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 documented as of this encounter Progress Notes Teodoro Joaquin MD - 12/05/2020 8:45 AM CDT Here for PRP right eye only today CC - Diabetic retinopathy each eye INTERVAL HISTORY - vision is improving left eye; wants to get her retina checked today HPI - Tamiko Méndez is a 39 year old year-old patient with DM I x [address] Regan for evaluation and treat of DMI with PDR OU Vision has stable over the past few years. No new flashes or floaters. No eye pain, redness, discharge. Last A1C 11.8 (11/2019). ?? POH: PDR s/p PRP right eye (2008) ?? FMHx: No AMD; Glaucoma: Father ?? RETINAL IMAGING: OCT 09-27-20 OU - within normal limits; no IRF FA 10-17-20 right eye PRP scars; capillary nonperfusion temp macula and NVEs with leakage mid periphery left eye extensive NVE with leakage ASSESSMENT & PLAN 1. PDR each eye Poorly controlled DMI with most recent A1c 11.8 (working on it) S/P PRP right eye 2008 NVEs in both eyes with extensive ischemia left eye; no vit heme S/P PRP left eye 10/25/20 and now today will do right eye add PRP Risks and benefits of laser treatment discussed extensively; I did not offer intravitreal avastin injection because she would benefit more from a long lasting tx due to compliance considerations 2. Myopia each eye Comfortable with current glasses Plan for add PRP right eye today RTC 4-6 months and if PDR is completely regressed will follow every 9-12 months Complete documentation of historical and exam elements from today's encounter can be found in the full encounter summary report (not reduplicated in this progress note). I personally obtained the chiefcomplaint(s) and history of present illness. I confirmed and edited as necessary the review of systems, past medical/surgical history, family history, social history, and examination findings as documented by others; and I examined the patient myself. I personally reviewed the relevant tests, images, and reports as documented above. I formulated and edited as necessary the assessment and plan and discussed the findings and management plan with the patient and family. Teodoro Hill MD] documented in this encounter Nursing Notes Meaghan Gomez COMT - 12/05/2020 8:45 AM CDT Chief Complaints and History of Present Illnesses Patient presents with ??? Diabetic Retinopathy Follow Up 6 week follow up both eyes. Chief Complaint(s) and History of Present Illness(es) Diabetic Retinopathy Follow Up Comments: 6 week follow up both eyes. Comments Pt states vision has been good since last visit. No eye pain today. No flashes or floaters. No redness or dryness. DM1 BS: 396 at 8:53, pt last took insulin at 7:30am. Lab Results Component Value Date A1C 11.9 12/07/2019 A1C 11.5 03/21/2018 A1C 11.9 08/29/2006 KAYLA Lucero December 05, 2020 9:03 AM documented in this encounter Plan of Treatment Upcoming Encounters Date Type Specialty Care Team Description 04/04/2022 Office Visit roving machine operator Kaela Dubois APRN [facility] [address] [place] [place], [place] [address] (Wo rk) 04/23/2022 Virtual Visit Endocrinology Lottie Cedillo , ERROL [address] [place] [id number] (Wo rk) documented as of this encounter Procedures Procedure Name Priority Date/Time Associated Diagnosis Comme nts PANRETINAL Routine 12/08/2020 11:48 Stable proliferative Res ults for this PHOTOCOAGULATION (PRP) AM CDT diabetic retinopat hy procedure are in OD (RIGHT EYE) of both eyes the results associated with type section . 1 diabetes mellitus (H) Proliferative diabetic retinopathy of both eyes associated with type 1 diabetes mellitus, unspecified proliferative retinopathy type (H) documented in this encounter Results Panretinal Photocoagulation (PRP) OD (right eye) (12/08/2020 11:48 AM CDT) Narrative Teodoro Joaquin MD - 12/09/19 11:48 AM CDT Procedure: Oro-retinal photocoagulation, right eye Indication: Proliferative diabetic retin opathy Surgeon: Drs. Hill/Fely Date: 12/05/20 Risks, benefits and alternatives of the above mentioned procedure discussed, including but not excluded ri sk of ocular irritation, corneal abrasion, decreased peripheral vision wi th narrowed visual field, decreased central vision from worsening macular edema inflammation, decreased dark adaptation, decreased acc omodation, and cataract. Pt agreed and signed inform consent. Spot size: 200 um Duration: 0.06 ms Power: 210 mW Number of spots: 358 Patient tolerated procedure well and the re were no complications. Karson Geiger MD Vitreoretinal Surgery Fellow [facility] I personally reviewed the ophthalmic chaz t(s) associated with this encounter, agree with the interpretation (s) as documented by the resident/fellow, and have edited the cor responding report(s) as necessary. Teodoro Hill MD Teodoro Kirkland MD OPHTHALMOLOGY documented in this encounter Visit Diagnoses Diagnosis Proliferative diabetic retinopathy of reynaldo th eyes associated with type 1 diabetes mellitus, unspecified proliferative reti nopathy type (H) Nuclear sclerotic cataract of both eyes Senile nuclear sclerosis Myopic astigmatism of both eyes documented in this encounter Administered Medications Active Administered Medications - up to 3 most recent administrations Medication Order MAR Action Action Date Dose Rate Site LORazepam (ATIVAN) Given 12/05/2020 9:35 AM 0.5 mg Other (see tablet 1 mg CDT comments) 1 mg, Oral, EVERY 4 HOURS PRN, anxiety, Starting on Fri10/25/20 at 0737 Given 10/25/2020 9:04 AM CDT 1 mg documented in this encounter Additional Health Concerns Assessment Noted Time PHQ-9 Depression Total Score: 0 04/06/2019 1:16 PM NEON SIGN MECHANIC documented as of this encounter Care Teams Embedded Systems Engineer Relationship Specialty Start Date End Date Nelda Peña, PCP - General Nurse Practitioner 02/02/18 HEAD OF MARKETING ADOMETRY STRETCHING PRESS OPERATOR [address] [facility] [address] [place], [place] [id number] Jose Lopez OD MD Optometry 03/04/18 Jillian Dubois Nurse Practitioner Nurse Practitioner 08/17/18 SHAW Infante STRETCHING PRESS OPERATOR [facility] [address] [place], [place] [id number] Nelda Peña, Assigned PCP 03/12/20 03/03/21 HEAD OF MARKETING ADOMETRY STRETCHING PRESS OPERATOR [address] [facility] [address] [place] [address] Seda Moy Assigned OBGYN Provider 01/21/20 01/27/21 MD Jai [address] [facility] [address] [place] [address] Nawaf Morocho MD Dermatology 04/24/[address] [place], [place] [phone] Nawaf Morocho, Assigned Surgical 04/30/[address] [facility] [address] [facility] [address] [place], [place] [phone] Lottie Cedillo, Assigned Endocrinology 06/14/20 PA-C Provider [address] [place] [address] Azeem Lindsey, Assigned Behavioral 06/18/20 HEAD OF MARKETING ADOMETRY [facility] Health Provider [address] [place], [place] [phone] Liz Kirkland, Assigned Surgical 12/10/20 MD Teodoro Provider [address] [place] [phone] documented as of this encounter
--- OUTSIDE RECORDS SUMMARY | 2022-02-19 14:25 | XMS_ITS | Encounter Summary ---
:1980 Author Organization [facility] Address [address] [place] [address] Care Team Providers Name Role Phone Nelda Peña PERFORMANCE ENGINEER COIN PURSE FRAMER Primary Care Provider [phone] Jose Lopez OD Unavailable Jillian Dubois APRN COIN PURSE FRAMER Unavailable [phone] Nelda Peña APRN COIN PURSE FRAMER Unavailable [phone] Seda Moy MD Unavailable [phone] Nawaf Morocho MD Unavailable Lottie Cedillo PA-C Unavailable Azeem Lindsey APRN COIN PURSE FRAMER Unavailable [phone] Teodoro Joaquin MD Unavailable [phone] Encounter Details Date Type Department Care Team Description 01/02/2021 Travel Social History Tobacco Use Types Packs/Day [...] at Date Recorded Female 05/08/2020 12:57 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 documented as of this encounter Plan of Treatment Upcoming Encounters Date Type Specialty Care Team Description 04/04/2022 Office Visit sustainability purchasing agent Kaela Dubois APRN COIN PURSE FRAMER [facility] [address], [place] [phone] (Wo rk) 04/23/2022 Virtual Visit Endocrinology Lottie Cedillo PA-C [address] [place], [place] [phone] (Wo rk) documented as of this encounter Visit Diagnoses Not on filedocumented in this encounter Additional Health Concerns Assessment Noted Time PHQ-9 Depression Total Score: 0 04/06/2019 1:16 PM SOFTWARE DEVELOPER INTERN documented as of this encounter Care Teams Real Estate Administrator Relationship Specialty Start Date End Date Nelda Peña, PCP - General Nurse Practitioner 02/02/18 PERFORMANCE ENGINEER COIN PURSE FRAMER [address] [facility] [place] [address] [facility] [address] [place] [address] Jose Lopez OD MD Optometry 03/04/18 Jillian Dubois Nurse Practitioner Nurse Practitioner 08/17/18 SHAW Infante [facility] [address] [place] [address] Nelda Peña, Assigned PCP 03/12/20 03/03/21 PERFORMANCE ENGINEER COIN PURSE FRAMER [address] [facility] [address] [place] [address] Seda Moy Assigned OBGYN Provider 01/21/20 01/27/21 MD Jai [address] [place] [address] Nawaf Morocho MD Dermatology 04/24/20 [facility] [address] [facility] [address] [place] [address] Lottie Cedillo, Assigned Endocrinology 06/14/20 PA-C Provider [address] [place] [address] Azeem Lindsey, Assigned Behavioral 06/18/20 PERFORMANCE ENGINEER [facility] Provider [address] [place] [address] Liz Kirkland, Assigned Surgical 12/10/20 MD Teodoro Provider [address] [place] [address] documented as of this encounter
--- OUTSIDE RECORDS SUMMARY | 2022-02-19 14:25 | XMS_ITS | Encounter Summary ---
:1980 Author Organization [place] Address [address] [place] [address] Care Team Providers Name Role Phone Nelda Peña RETAIL SALES SPECIALIST INDUSTRIAL ENGINEER Primary Care Provider [phone] Jose Lopez OD Unavailable Jillian Dubois RETAIL SALES SPECIALIST INDUSTRIAL ENGINEER Unavailable [phone] Nelda Peña RETAIL SALES SPECIALIST INDUSTRIAL ENGINEER Unavailable [phone] Seda Moy MD Unavailable [phone] Nawaf Morocho MD Unavailable Lottie Cedillo PA-C Unavailable Azeem Lindsey RETAIL SALES SPECIALIST INDUSTRIAL ENGINEER Unavailable [phone] Teodoro Joaquin MD Unavailable [phone] Reason for Referral Patient Education (Routine) - Closed Specialty Diagnoses / Procedures Referred By Contact Refer red To Contact Diabetes Education Diagnoses 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) Lottie Cedillo PA-C [address] [place] [address] Referral ID Status Reason Start Date Expiration Date Visits Requ ested Visits Authorized [id number] Closed 12/26/2020 12/26/2021 1 1 Medication Prior Authorization - Closed Specialty Diagnoses / Procedures Referred By Contact Refer red To Contact Diagnoses 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) Lottie Cedillo PA-C [address] [place] [address] 5 Referral ID Status Reason Start Date Expiration Date Visits Requ ested Visits Authorized [id number] Closed 1 1 Reason for Visit Reason Comments Diabetes Type 1 Encounter Details Date Type Department Care Team Description 12/26/2020 Virtual Visit [facility] Lottie Cedillo 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) (Primary Dx); End[facility]inology [facility] ERROL Jones 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 documented as of this encounter Patient Instructions Patient InstructionsLottie Cedillo PA-C - 12/26/2020 4:00 PM CDT Dear Betty, It is always good to speak with you and I am glad many things are heading in the right direction foryou! I am glad that you are interested In Tandem TSlim with Control IQ. I do think that initially it willbe some work but that it will be very much worth it for you, your blood sugar WILL improve markedly if you can use it and I believe that you will feel better. We can get started with the Dexcom part ofit at any point, just let me know when you are ready. An alternate GLP-1 agonist (Ozempic perhaps rather than Trulicity also remains an option for you Cece do think you should consider trying low dose statin drug. For now please see Tandem website and CDE. Let know of anything I can help with. [email or web address]/products/t-slim-[email or web address] Also, please continue your great work on diet, physical activity and your mental health! Please work to give your Novolog 10 - 20 minutes BEFORE you eat any meal. If BG is >200 before the meal, try to wait 20 minutes after insulin injection to eat any carbohydrates. If blood sugar is still high (>160) 4 hours after meals, you do need to increase your carbohydrate ratio and give moreinsulin with your meals (i.e. 1u: 3.5 g in morning, 1u:4 g after 10 am.) With Fiasp, you should be gabriela to give it just 5 minutes before your meals, but still 10 - 15 minutes before when blood sugar before the meal is >200. Be sure that you are also giving extra insulin to correct the high blood sugar before each meal. Please let me know what else I might help with. 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 Betty is a 40 year old who is being evaluated via a billable video visit. How would you like to obtain your AVS? MyChart If the video visit is dropped, the invitation should be resent by: Send to e- mail at: [email or web address] Will anyone else be joining your video visit? No JO Barksdale Video-Visit Details Type of service: Video Visit Video Start Time: 4:12 PM Video End Time: 4:45 PM Originating Location (pt. Location): Home Distant Location (provider location): [facility] Platform used for Video Visit: [employer] [facility]ology Lottie Cedillo PA-C 12/26/2020 Chief Complaint: Diabetes History of Present Illness: Betty Méndez is a 40 year old female with a history of type 1 diabetes mellitus who presents for follow up. She was diagnosed with type 1 diabetes at age 10.5 months old, with complication of proliferative DR. She has depression, obesity and abnormal uterine bleeding for which she had previously plannedto undergo hysterectomy, expelled Mirena IUD and now is on just POP contraceptives. For diabetes, in college she was on insulin pump, then afterwards switched to NPH and R due to cost,the pump getting caught on things, and recurrent infections. Then went to Analog insulins in early 2018. She has seen Dr. Acevedo here in clinic. She last saw Dr. Gilman in November 2018 an d reported that had not been paying much attention to her diabetes, specifically covering her meals,that finances were an issue and that she had been under stress at work. She tried Trulicity but it made her feel nauseated so she stopped it. She is unable to get a pump due to cost and had stopped using the samantha recently due to cost.??No changes to her insulin routine were made at that time, she wasinstructed to work on timing her doses with meals and hopefully meet with health psychology to address some of the psychological barriers to her management. Recent encounters: 04/06/2019, her A1c was 11.4. At this point we continued to discuss ways over overcoming psychologicaland financial barriers to management of her diabetes. We also discussed increasing her Tresiba dose. May 2019: Eating better exercising and reported 12 lb weight loss; we again discussed increasing basal insulin and encouraged her in recent weight loss and increased physical activity. Defers stain. 2019: Had started [employer] program For weight loss. Possible interest in Tandem with Control IQ. Anxious about DM care in hospital (bad past experiences) when considering upcoming hysterectomy. Lantus increased from 42 to 46 units daily. Planned to start InPen. Defers statin. Interval history: Tamiko tells me that she was in June, Spouse was out of work, but just back now. She has been trying to before or after eating. She would like to try Fiasp. She is using InPen but quit using the steven as it was too much. for her. Would like to get back to pens as believes cost would be less. Tries to give insulin 10 - 15 minutes before melas but so busy it usually does not happen and would like to try Fiasp. She had a recent A1c of 10.9 and glad to se <11.0 - moving in right direction. Is getting therapy for various things and wants to improve DM care. Had COVID right after Thanksgiving last year and was ill through February, but still has chest tightness. DM regimen: Lantus 46 units daily. Novolog 1U:4 g with breakfast, 1u:5g after 10 am. 1U:50 >125 Blood Glucose Monitoring: ?? Bg comes into range overnight but is elevated as soon as begins eating. Diabetes monitoring and complications: CAD: No Last eye exam results: Saw Dr Kirkland in September, retinopathy with NVEs in both eyes with extensive ischemia left eye; no vit heme. Laser treatment advised. Microalbuminuria: 21.95 mg/g Cr in February 2018 Neuropathy: No HTN: No On Statin: No, her February 2018 cholesterol is TG 96, HDL 66, and LDL 91. She does not plan to havechildren and is on progesterone mini pill as well as having an IUD in place. She does not have a strong family history of heart disease besides a stroke in her grandfather at ~85 years old. On Aspirin: No Depression: Yes, management good right now. Review of Systems: Pertinent items are noted in HPI. All other systems are negative. Active Medications: ??? augmented betamethasone dipropionate (DIPROLENE-AF) 0.05 % external cream, Apply topically 2 times daily Do not apply to face, groin, or armpits, Disp: 50 g, Rfl: 1 ??? cetirizine (ZYRTEC) 10 MG tablet, Take 10 mg by mouth daily, Disp: , Rfl: ??? citalopram (CELEXA) 40 MG tablet, Take 1 tablet (40 mg) by mouth daily, Disp: 30 tablet, Rfl: 0 ??? citalopram (CELEXA) 40 MG tablet, Take 1 tablet (40 mg) by mouth daily, Disp: 30 tablet, Rfl: 0 ??? CLARITIN 10 MG OR TABS, 1 tab daily, Disp: 30, Rfl: 5 ? ? insulin aspart (NOVOLOG VIAL) 100 UNITS/ML vial, 14 units with meals and correction 04/24 >150, Disp: 4 vial, Rfl: 3 ??? Insulin Degludec (TRESIBA) 100 UNIT/ML SOLN, Inject 42 Units Subcutaneous daily Increase by 1 unit every 5-7 days until fasting blood sugar is at 90 - 140 each morning as long as no overnight or buttermaker lows., Disp: 10 mL, Rfl: 11 ??? insulin syringe 31G X 16 0.5 ML MISC, 1 Application 4 times daily (before meals and nightly),Disp: 90 each, Rfl: 3 ??? levonorgestrel (MIRENA) 20 MCG/24HR IUD, 1 each (20 mcg) by Intrauterine route continuous, Disp:, Rfl: ??? LORazepam (ATIVAN) 0.5 MG tablet, Take 0.5 mg by mouth 2 times daily as needed, Disp: , Rfl: ??? norethindrone (MICRONOR) 0.35 MG tablet, Take 1 tablet (0.35 mg) by mouth daily, Disp: 84 tablet, Rfl: 3 ??? spironolactone (ALDACTONE) 50 MG tablet, Take 3 tablets (150 mg) by mouth At Bedtime, Disp: 90 tablet, Rfl: 3 ??? tretinoin (RETIN-A) 0.025 % external cream, Apply topically At Bedtime Pea- sized amount to the whole face. Start every other night and increase frequency over a period of weeks, Disp: 45 g, Rfl: 3 Allergies: Hay fever & [a.r.m.] and No clinical screening - see comments Past Medical History: Acne cystica Adenomyosis Depression Dysmenorrhea Seasonal allergies Type 1 diabetes (1981, 10 mo) Past Surgical History: Induced by [facility] Oral surgery Dental extractions Diabetic retinopathy left Family History: Osteoarthritis - mother Impaired fasting glucose - mother Anxiety - mother Asthma - mother Seasonal/environmental allergies - mother Hypertension - father Glaucoma - father Obesity - sister Osteoporosis - maternal grandmother Kidney disease - maternal grandfather Diabetes type 2 - maternal grandfather and paternal grandmother Stroke - grandfather (85 years old) Social History: This patient presented alone. Smoking status: never Smokeless tobacco: never Alcohol use: yes Drug use: n/a Physical Exam: There were no vitals taken for this visit. Wt Readings from Last 10 Encounters: 11/02/19 106.8 kg (235 lb 6.4 oz) 06/10/19 103 kg (227 lb 1.6 oz) 04/06/19 108.4 kg (239 lb) 12/09/18 107.1 kg (236 lb 3.2 oz) 08/18/18 108.5 kg (239 lb 4.8 oz) 06/18/18 105.9 kg (233 lb 6.4 oz) 05/14/18 105.8 kg (233 lb 3.2 oz) 03/12/18 106.1 kg (233 lb 14.4 oz) 02/26/18 106.1 kg (233 lb 12.8 oz) 02/17/18 106.1 kg (233 lb 12.8 oz) General: Pleasant, overweight F with bright affect. Upbeat. At work. Psych: Mood is good, affect is warm and appropriate. Thought form and content are fluid and coherent. HEENT: Eyes and sclera are clear. Extraocular movements are grossly intact without proptosis. Nares are patent, mucous membranes moist. Neck: No masses or JVD are noted. Resp: Easy and unlabored breathing. Neuro: Alert and oriented, communicating clearly. Exam limited due to this being a video visit. Data: Recent Labs Lab Test 12/25/20 1525 12/07/19 1054 04/06/19 0000 12/09/18 0000 08/17/18 1236 06/18/18 0000 03/21/18 0845 03/21/18 0844 03/21/18 0844 A1C 10.9* 11.9* -- -- -- -- -- < > 11.5* HEMOGLOBINA1 -- -- 11.4* 11.3* -- < > -- -- -- TSH -- -- -- -- -- -- -- -- 1.59 LDL -- -- -- -- -- -- -- -- 91 HDL -- -- -- -- -- -- -- -- 66 TRIG -- -- -- -- -- -- -- -- 96 CR -- -- -- -- 0.80 -- -- -- 0.76 MICROL -- -- -- -- -- -- 34 -- -- < > = values in this interval not displayed. glomerular filtration rate GFR Estimate Date Value Ref Range Status 08/17/2018 >90 >60 mL/min/[1.73_m2] Final Comment: Non GFR Calc Starting 03/17/2018, serum creatinine based estimated GFR (eGFR) will be calculated using the Chronic Kidney Disease Epidemiology Collaboration (CKD-EPI) equation. 03/21/2018 >90 >60 mL/min/[1.73_m2] Final Comment: Non GFR Calc Starting 03/17/2018, serum creatinine based estimated GFR (eGFR) will be calculated using the Chronic Kidney Disease Epidemiology Collaboration (CKD-EPI) equation. 08/29/2006 >90 >60 mL/min/1.7m2 Final Assessment and Plan: 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) Betty has type 1 diabetes with BG that remain well above goal for years now. She is now monitoring her blood sugar with Samantha Hopper and engaged in a weight loss diet. She is potentially interested in Tandem t slim pump with Control IQ. This would require Dexcom but she is not quite ready to switch and will CDE. We considered Samantha 2 with alarms, but there is not yetsoftware available for her Android phone which is unfortunate as she could really benefit from high alarm. Her basal insulin appears to be at goal, but BG rise quickly after waking and generally remain out of range until next day. She needs more effective meal coverage and would like to try Fiasp. Advised: I am glad that you are interested In Tandem TSlim with Control IQ. I do think that initially it willbe some work but that it will be very much worth it for you, your blood sugar WILL improve markedly if you can use it and I believe that you will feel better. We can get started with the Dexcom part ofit at any point, just let me know when you are ready. An alternate GLP-1 agonist (Ozempic perhaps rather than Trulicity also remains an option for you Cece do think you should consider trying low dose statin drug. For now please see Tandem website and CDE. Let know of anything I can help with. [email or web address]/products/t-slim-[email or web address] Also, please continue your great work on diet, physical activity and your mental health! Please work to give your Novolog 10 - 20 minutes BEFORE you eat any meal. If BG is >200 before the meal, try to wait 20 minutes after insulin injection to eat any carbohydrates. If blood sugar is still high (>160) 4 hours after meals, you do need to increase your carbohydrate ratio and give moreinsulin with your meals (i.e. 1u: 3.5 g in morning, 1u:4 g after 10 am.) With Fiasp, you should be gabriela to give it just 5 minutes before your meals, but still 10 - 15 minutes before when blood sugar before the meal is >200. Be sure that you are also giving extra insulin to correct the high blood sugar before each meal. Please let me know what else I might help with. BP is at goal. Statin is recommended. On contraception, but only POP Mirena expelled. Has retinopathy and seeing Ophtha. Continues to work on heart healthy diet and activity. 45 minutes in preparation for visit reviewing chart, labs and documentation, visiting with patient gathering history and in exam, education and counseling, as well as coordination of care, further chart review and documentation following visit on this date of service and as alluded to documented above. It is my privilege to be involved in the care of the above patient. Lottie Cedillo PA-C, [facility] Diabetes, Endocrinology, and Metabolism [phone] Appointments/Nurse [phone] pager [phone] nurse line documented in this encounter Plan of Treatment Upcoming Encounters Date Type Specialty Care Team Description 04/04/2022 Office Visit mattress packer Kaela Dubois APRN [facility] [address] [place] [address] (Wo rk) 04/23/2022 Virtual Visit Endocrinology Lottie Cedillo PA-C [address] [place] [address] (Wo rk) Scheduled Referrals Name Type Priority Associated Diagnoses Order S chedule AMB Adult Diabetes Referral Routine: Next Type 1 diabetes Expec ela: Educator Referral available opening mellitus with 11/30 complications (H) (Approxima te), Expires: 12/26/2021 documented as of this encounter Results (ABNORMAL) Comprehensive metabolic panel (09/25/2021 11:38 AM CDT) [facility] Method Time Signature Sodium 134 133 [...] and gender (Job et al., NEJM, DOI: 10.1056/[id number]) Specimen Anatomical Collection Method / Collection Time Recei seng Time (Source) Location / Volume Laterality Blood STRUCTURE OF RIGHT Venipuncture / 09/25/2021 11:38 UPPER LIMB / Unknown AM CDT 11:38 AM CDT Unknown Lottie Cedillo PA-C LAB - BLOOD ORDERABLES Performing Organization Address City/State/ZIP Code Phon e Number [facility] [place], [place] [phone] [facility] [id number] [place] [address] Lab (no room number, 1st floor of clinic) [facility] [place], [place] [phone] [facility] 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 associated with type 1 diabetes mellitus (H) Class 3 severe obesity due to excess shay ories with body mass index (BMI) of 40.0 to 44.9 in adult, unspecified whether terrance us comorbidity present (H) documented in this encounter Additional Health Concerns Assessment Noted Time PHQ-9 Depression Total Score: 0 04/06/2019 1:16 PM ACTIONSCRIPT DEVELOPER documented as of this encounter Care Teams [employer] Counselor Relationship Specialty Start Date End Date Nelda Peña, PCP - General Nurse Practitioner 02/02/18 RETAIL SALES SPECIALIST [facility] [address] [facility] [address] [place] [address] Jose Lopez OD MD Optometry 03/04/18 Jillian Dubois Nurse Practitioner Nurse Practitioner 08/17/18 SHAW Infante [facility] [address] [place], [place] [address] Nelda Peña, Assigned PCP 03/12/20 03/03/21 RETAIL SALES SPECIALIST INDUSTRIAL ENGINEER [address] [facility] [address] [place], [place] [address] Seda Moy Assigned OBGYN Provider 01/21/20 01/27/21 MD Jai [address] [place], [place] [address] Nawaf Morocho MD Dermatology 04/24/20 [facility] [address] [facility] [address] [place], [place] [address] Lottie Cedillo, Assigned Endocrinology 06/14/20 PA-C Provider [address] [place] [address] Azeem Lindsey, Assigned Behavioral 06/18/20 [facility] Provider [address] [place], [place] [address] Liz Kirkland, Assigned Surgical 12/10/20 MD Teodoro Provider [address] [place] [address] documented as of this encounter
--- OUTSIDE RECORDS SUMMARY | 2022-02-19 14:25 | XMS_ITS | Encounter Summary ---
:1980 Author Organization [place] Address formerly [facility] [place] [address] Care Team Providers Name Role Phone Nelda Peña VP PUBLISHER DEVELOPMENT JUNIOR ACCOUNT MANAGER Primary Care Provider Jose Lopez OD Unavailable Jillian Dubois APRN JUNIOR ACCOUNT MANAGER Unavailable [phone] Nelda Peña APRN JUNIOR ACCOUNT MANAGER Unavailable [phone] Seda Moy MD Unavailable [phone] Nawaf Morocho MD Unavailable Lottie Cedillo PA-C Unavailable Azeem Lindsey APRN JUNIOR ACCOUNT MANAGER Unavailable [phone] Teodoro Joaquin MD Unavailable [phone] Jillian Dubois APRN JUNIOR ACCOUNT MANAGER Unavailable [phone] Encounter Details Date Type Department Care Team Description 12/27/2020 [facility] Lottie Cedillo PA-C Endocrinology Clinic [address] [place] [address] [place] [address] 3rd Floor [place], [place] [phone] Social History Tobacco Use Types [...] at Date Recorded Female 05/08/2020 12:57 PM TUB OPERATOR COVID-19 Exposure Response Date Recorded In the last month, have you been in contact with Yes 02/13/2021 3:27 PM TUB OPERATOR someone who was confirmed or suspected to have Coronavirus / COVID-19? documented as of this encounter Miscellaneous Notes Telephone Encounter - Emma Kaur - 12/27/2020 9:30 AM CDT Diabetes Education Scheduling Outreach #1: Call to patient to schedule. Left message with phone number to call to schedule. Plan for 2nd outreach attempt within 1 week. Emma Kaur [place] [facility] Scheduling documented in this encounter Plan of Treatment Upcoming Encounters Date Type Specialty Care Team Description 04/04/2022 Office Visit muskrat trapper Kaela Dubois APRN JUNIOR ACCOUNT MANAGER [facility] [address] [place], [place] [id number] (Wo rk) 04/23/2022 Virtual Visit Endocrinology Lottie Cedillo , PAFacundoC [address] [place], [place] [address] (Wo rk) documented as of this encounter Visit Diagnoses Not on filedocumented in this encounter Additional Health Concerns Assessment Noted Time PHQ-9 Depression Total Score: 0 04/06/2019 1:16 PM TUB OPERATOR documented as of this encounter Care Teams District Court Judge Relationship Specialty Start Date End Date Nelda Peña, PCP - General Nurse Practitioner 02/02/18 VP PUBLISHER DEVELOPMENT [facility] [address] [facility] [address] [place], [place] [address] Jose Lopez OD MD Optometry 03/04/18 Jillian Dubois Nurse Practitioner Nurse Practitioner 08/17/18 SHAW Infante [facility] [address] [place] [address] Nelda Peña, Assigned PCP 03/12/20 03/03/21 VP PUBLISHER DEVELOPMENT [facility] [address] [facility] [address] [place], [place] [address] Seda Moy Assigned OBGYN Provider 01/21/20 01/27/21 MD Jai [address] [place] [address] Nawaf Morocho MD Dermatology 04/24/20 [facility] [address] [facility] [address] [place] [address] Lottie Cedillo, Assigned Endocrinology 06/14/20 PA-C Provider [address] [place], [place] [address] Azeem Lindsey, Assigned Behavioral 06/18/20 [facility] [address] [place] [address] Liz Kirkland, Assigned Surgical 12/10/20 MD Teodoro Provider [address] [place] [address] Jillian Dubois Assigned OBGYN Provider 01/28/21 SHAW Infante [facility] [address] [place] [address] documented as of this encounter
--- OUTSIDE RECORDS SUMMARY | 2022-02-19 14:25 | XMS_ITS | Encounter Summary ---
:1980 Author Organization [place] Address [facility] [place] [address] Care Team Providers Name Role Phone Nelda Peña BATTALION CHIEF WELLHEAD PUMPER Primary Care Provider Jose Lopez OD Unavailable Jillian Dubois BATTALION CHIEF WELLHEAD PUMPER Unavailable [phone] Nelda Peña BATTALION CHIEF WELLHEAD PUMPER Unavailable [phone] Seda Moy MD Unavailable [phone] Nawaf Morocho MD Unavailable Lottie Cedillo PA-C Unavailable Azeem Lindsey APRN WELLHEAD PUMPER Unavailable [phone] Teodoro Joaquin MD Unavailable [phone] Encounter Details Date Type Department Care Team Description 12/25/2020 Rust Typ e 1 diabetes mellitus with [place] [facility] or[facility] complications (H) [id number] [place] [phone] Social History Tobacco Use Types Packs/Day [...] at Date Recorded Female 05/08/2020 12:57 PM SECURITIES ATTORNEY COVID-19 Exposure Response Date Recorded In the last month, have you been in contact with No / Unsure 12/25/2020 3:12 PM CDT someone who was confirmed or suspected to have Coronavirus / COVID-19? 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 documented in this encounter Results (ABNORMAL) Hemoglobin A1c (12/25/2020 3:25 PM CDT) [facility] Method Time Signature Hemoglobin A1C 10.9 (H) 0.0 - 5.6 12/25/2020 [facility] % 3:52 PM CDT Comment: Normal <5.7% Prediabetes 5.7-6.4% ?? Diabetes 6.5% or higher Note: Adopted from ADA consensus guideli kale. Specimen Anatomical Collection Method / Collection Time Recei seng Time (Source) Location / Volume Laterality Blood STRUCTURE OF RIGHT Venipuncture / 12/25/2020 3:25 09/2 09/2020 3:25 UPPER LIMB / Unknown PM CDT PM CDT Unknown Lottie Cedillo PA-C LAB - BLOOD ORDERABLES Performing Organization Address City/State/ZIP Code Phon [place] [address] [phone] [place] [facility] [address] [facility] (no room number, 1st floor of clinic) [facility] [place], [place] [phone] [facility] [address], [facility] Lab [address] [facility] (no room number, 1st floor of clinic) documented in this encounter Visit Diagnoses Diagnosis Type 1 diabetes mellitus with complicati ons (H) documented in this encounter Additional Health Concerns Assessment Noted Time PHQ-9 Depression Total Score: 0 04/06/2019 1:16 PM SECURITIES ATTORNEY documented as of this encounter Care Teams Gas Line Servicer Relationship Specialty Start Date End Date Nelda Peña, PCP - General Nurse Practitioner 02/02/18 BATTALION CHIEF [facility] [address] [address] Jose Lopez OD MD Optometry 03/04/18 Jillian Dubois Nurse Practitioner Nurse Practitioner 08/17/18 SHAW Infante [facility] [address] [place], [place] [id number] Nelda Peña, Assigned PCP 03/12/20 03/03/21 BATTALION CHIEF WELLHEAD PUMPER [address] [place] [address] [facility] [address] [place] [address]115 Seda Moy Assigned OBGYN Provider 01/21/20 01/27/21 MD Jai [address] [place] [address] Nawaf Morocho MD Dermatology 04/24/20 [facility] [address] [place] [address] Lottie Cedillo, Assigned Endocrinology 06/14/20 PA-C Provider [address] [place] [address] Azeem Lindsey, Assigned Behavioral 06/18/20 [facility] Provider [address] [place] [address] Liz Kirkland, Assigned Surgical 12/10/20 MD Teodoro Provider [address] [place] [address] documented as of this encounter
--- OUTSIDE RECORDS SUMMARY | 2022-02-19 14:25 | XMS_ITS | Encounter Summary ---
:1980 Author Organization [place] Address [address] [place] [address] Care Team Providers Name Role Phone Nelda Peña APRN E D TECH Primary Care Provider Jose Lopez OD Unavailable Jillian Dubois APRN E D TECH Unavailable [phone] Nelda Peña APRN E D TECH Unavailable [phone] Seda Moy MD Unavailable [phone] Nawaf Morocho MD Unavailable Lottie Cedillo PA-C Unavailable Azeem Lindsey APRN E D TECH Unavailable [phone] Teodoro Joaquin MD Unavailable [phone] Reason for Visit Reason Comments Annual Visit Encounter Details Date Type Department Care Team Description 01/18/2021 Office Visit [facility] [place], Encounter for gynecological examination without abnormal finding (Primary Dx); [facility] Jillian Infante, Screening for cervical cancer; [facility] Morbid obesity (H); [address] [facility] Encounter for screening mamm ogram for breast cancer; [place] [facility] Abnormal uterine bleeding (AUB); Professional Bldg [facility] [address] Vulvovaginal candidiasis [address] [place], [place] [address] [address] [place], [place] [phone] [address] (Work) [phone] Social History Tobacco Use Types Packs/Day Years [...] at Date Recorded Female 05/08/2020 12:57 PM COMPLIANCE DIRECTOR COVID-19 Exposure Response Date Recorded In the last month, have you been in contact with No / Unsure 01/18/2021 2:37 PM CDT someone who was confirmed or suspected to have Coronavirus / COVID-19? documented as of this encounter Last Filed Vital Signs Vital Sign Reading Time Taken Comments Blood Pressure 125/85 01/18/2021 2:55 PM CDT Pulse 114 01/18/2021 2:55 PM CDT Temperature - - Respiratory Rate - - Oxygen Saturation - - Inhaled Oxygen Concentration - - Weight 107.9 kg (237 lb 14.4 oz) 01/18/2021 2:55 PM CDT Height 157.5 cm (5' 2) 01/18/2021 2:55 PM CDT Body Mass Index 43.51 01/18/2021 2:55 PM CDT documented in this encounter Progress Notes Jillian Dubois APRN E D TECH - 01/18/2021 2:30 PM CDT Progress Note SUBJECTIVE: Tamiko Méndez is an 40 year old , who requests a breast and pelvic exam. Patient is followed by Dr. Peña for primary care. Pt's medical hx is significant for Type 1 DM, adenomyosis, depression, and asthma. Concerns today include: 1. Frequent yeast infections related to glucose control, has Type 1 DM: Uses miconazole to treat them, which provides relief. Gets them about monthly. Pt reports currently having a yeast infection and is interested in trying Diflucan. 2. Heavy menstrual bleeding with adenomyosis, now well managed with Norethindrone 5mg daily. She hada hysterectomy consult within the last year and is still interested in this, but needs to get her glucose under better control. On 11/02/2019 pt switched from the IUD to Norethindrone. No bleeding since that time and is happy with this method of menstrual management. Sexual Hx: sexually active, male partner, 1 partner in the last year. Declines STD testing today. Denies sexual concerns. Last pap smear: unknown Mammogram current: pt to schedule HISTORY: Prescription Medications as of 01/24/2021 Rx Number Disp Refills Start End Last Dispensed Date Next Fill Date Owning Pharmacy augmented betamethasone dipropionate (DIPROLENE-AF) 0.05 % external cream 50 g 1 04/09/2019 [facility] [address] [place] [address] Sig: Apply topically 2 times daily Do not apply to face, groin, or armpits Class: E-Prescribe Route: Topical Calcium Carb-Cholecalciferol (CALCIUM 500+D PO) [facility] [address] [place] [address] Class: Historical Route: Oral cetirizine (ZYRTEC) 10 MG tablet Sig: Take 10 mg by mouth daily Class: Historical Route: Oral citalopram (CELEXA) 40 MG tablet 90 tablet 0 12/25/2020 [facility] [address] [place] [address] Sig: Take 1 tablet (40 mg) by mouth daily Class: E-Prescribe Route: Oral Continuous Blood Gluc Deputy Manager (RingadocYLE LEATHA 14 DAY READER) MARY 1 Device 1 06/18/2018 [place] [address] Si Application 5 times daily Class: E-Prescribe Route: Does not apply Continuous Blood Gluc Sensor (FREESTYLE LEATHA 14 DAY SENSOR) MISC 2 each 1 01/04/2021 [place] [address] Sig: Change every 14 days. For additional refills, please schedule a follow-up appointment at [phone] Class: E-Prescribe Notes to Pharmacy: [place] Approved Continuous Blood Gluc Sensor (FREESTYLE LEATHA 14 DAY SENSOR) [facility] 2 each 3 06/18/[address] [facility] [place] Application 4 times daily Class: E-Prescribe Route: Does not apply Digestive Enzymes (PAPAYA AND ENZYMES PO) [place] [address] Class: Historical Route: Oral Injection Device for insulin (INPEN [id number]) MARY 2 each 0 12/10/2019 [place], [place] - [facility] [address] Si each 4 times daily (before meals and nightly) Class: E-Prescribe Notes to Pharmacy: Please coordinate with plan to assure CORRECT device dispensed. Previously Novolog covered - appears now is lispro. Route: Does not apply Injection Device for insulin (INPEN [id number]) MARY 2 each 0 12/09/2019 [place] [address] Si each 4 times daily (before meals and nightly) Class: E-Prescribe Route: Does not apply insulin aspart (FIASP FLEXTOUCH) 100 UNIT/ML pen-injector 30 mL 4 12/26/2020 [place] [address] Sig: Inject 1-15 Units Subcutaneous 4 times daily MDD 55 units Class: E-Prescribe Route: Subcutaneous Prior authorization: Closed insulin aspart (NOVOLOG VIAL) 100 UNITS/ML vial 4 vial 3 06/10/2019 [place] [address] Si units with meals and correction 04/24 >150 Class: E-Prescribe Notes to Pharmacy: MDD 55 units insulin glargine (LANTUS PEN) 100 UNIT/ML pen 45 mL 3 12/26/[address] Sig: Inject 46 Units Subcutaneous At Bedtime Class: E-Prescribe Notes to Pharmacy: If Lantus is not covered by insurance, may substitute Basaglar at same dose and frequency. Route: Subcutaneous insulin lispro (HUMALOG PENFILL) 100 UNIT/ML Cartridge 15 mL 0 12/26/[address] Sig: Inject 1-12 Units Subcutaneous 4 times daily (with meals and nightly) Class: E-Prescribe Notes to Pharmacy: Will need if fiasp order takes time for approval Route: Subcutaneous insulin syringe 31G X 5/16 0.5 ML MISC 90 each 3 05/14/[address] Si Application 4 times daily (before meals and nightly) Class: E-Prescribe Route: Does not apply multivitamin w/minerals (MULTI-VITAMIN) tablet [address] Sig: Take 1 tablet by mouth daily Class: Historical Route: Oral norethindrone (AYGESTIN) 5 MG tablet 90 tablet 3 01/18/[address] Sig: Take 1 tablet (5 mg) by mouth daily Class: E-Prescribe Route: Oral norethindrone (MICRONOR) 0.35 MG tablet 84 tablet 3 12/07/[address] Sig: Take 1 tablet (0.35 mg) by mouth daily Class: E-Prescribe Route: Oral OMEPRAZOLE PO [address] Class: Historical Route: Oral propranolol (INDERAL) 10 MG tablet 120 tablet 0 12/25/[address] Sig: Take 1-2 tablets (10-20 mg) by mouth 2 times daily as needed (anxiety/agitation) Class: E-Prescribe Route: Oral spironolactone (ALDACTONE) 100 MG tablet 30 tablet 11 06/01/2020 [facility] [address] [place] [address] Sig: Take 1 tablet by mouth once daily Class: E-Prescribe tretinoin (RETIN-A) 0.025 % external cream 45 g 3 04/09/2019 [facility] [address] [place] [address] Sig: Apply topically At Bedtime Pea-sized amount to the whole face. Start every other night and increase frequency over a period of weeks Class: E-Prescribe Route: Topical Clinic-Administered Medications as of 01/24/2021 Dose Frequency Start End lidocaine (PF) (XYLOCAINE) 2 % injection 5 mL 5 mL EVERY 21 DAYS 10/25/2020 09/05/2021 Admin Instructions: PRN for laser treatments Route: Other LORazepam (ATIVAN) tablet 1 mg 1 mg EVERY 4 HOURS PRN 10/25/2020 Route: Oral Allergies Allergen Reactions ? ? Hay Fever & [A.R.M.] Stuffiness, watery eyes ??? No Clinical Screening - See Comments Unknown Immunization History Administered Date(s) Administered ??? COVID-19,PF,Pfizer 07/04/2020, 07/25/2020 ? ? Influenza Vaccine IM > 6 months Valent IIV4 (Alfuria,Fluzone) 02/17/2018 ??? Pneumococcal 23 valent 02/17/2018 OB History Para Term AB Living 1 0 0 0 1 0 SAB TAB Ectopic Multiple Live Births 0 0 0 0 0 Past Medical History: Diagnosis Date ??? Acne [...] LASER SURGERY OF EYE Left diabetic retinopathy Family History Problem Relation Age of Onset [...] ??? Macular Degeneration No family hx of Social History Socioeconomic History ??? Marital status: Spouse name: None ??? Number of children: None ??? Years of education: None ??? Highest education level: None Occupational History ??? None Tobacco Use ??? Smoking status: Never Smoker ??? Smokeless tobacco: Never Used Substance and Sexual Activity ??? Alcohol use: Yes ??? Drug use: None ??? Sexual activity: Yes Partners: Male control/protection: Condom, I.U.D., OCP Other Topics Concern ??? None Social History Narrative Works FT Lives in the [facility]. ROS Answers for HPI/ROS submitted by the patient on 01/18/2021 LUIS 7 TOTAL SCORE: 4 General Symptoms: No Skin Symptoms: Yes HENT Symptoms: No EYE SYMPTOMS: No HEART SYMPTOMS: No LUNG SYMPTOMS: No INTESTINAL SYMPTOMS: Yes URINARY SYMPTOMS: Yes GYNECOLOGIC SYMPTOMS: No BREAST SYMPTOMS: No SKELETAL SYMPTOMS: No BLOOD SYMPTOMS: No NERVOUS SYSTEM SYMPTOMS: No MENTAL HEALTH SYMPTOMS: No Changes in hair: No Changes in moles/ yip: No Itching: Yes Rashes: No Changes in nails: No Acne: Yes Hair in places you don't want it: No Change in facial hair: No Warts: No Non-healing sores: No Scarring: Yes Flaking of skin: Yes Color changes of hands/feet in cold : No Sun sensitivity: No Skin thickening: No Heart burn or indigestion: Yes Nausea: No Vomiting: No Abdominal pain: No Bloating: Yes Constipation: Yes Diarrhea: No Blood in stool: No Black stools: No Rectal or Anal pain: No Fecal incontinence: No Yellowing of skin or eyes: No Vomit with blood: No Change in stools: No Trouble holding urine or incontinence: No Pain or burning: No Trouble starting or stopping: No Increased frequency of urination: No Blood in urine: No Decreased frequency of urination: No Frequent nighttime urination: No Flank pain: No Difficulty emptying bladder: Yes EXAM: Blood pressure 125/85, pulse 114, height 1.575 m (5' 2), weight 107.9 kg (237 lb 14.4 oz), not currently . Body mass index is 43.51 kg/m??. General appearance: Pleasant female in no acute distress. BREAST EXAM: Breast: Without visible skin changes. No dimpling or lesions seen. Breasts supple, non-tender with palpation, no dominant mass, nodularity, or nipple discharge noted bilaterally. Axillary nodes negative. PELVIC EXAM: EG/BUS: Normal genital architecture without lesions, erythema or abnormal secretions; Bartholin's, Urethra, [place]'s normal Urethral meatus: normal Urethra: no masses, tenderness, or scarring Bladder: no masses or tenderness Vagina: moist, pink, rugae with thick clumpy,white and odorless secretions; mild erythema Cervix: pink, moist, closed Rectum: anus normal ASSESSMENT: Encounter Diagnoses Name Primary? Screening for cervical cancer ??? Morbid obesity (H) ??? Encounter for screening mammogram for breast cancer ??? Abnormal uterine bleeding (AUB) ??? Vulvovaginal candidiasis ??? Encounter for gynecological examination without abnormal finding Yes PLAN: Orders Placed This Encounter Procedures ??? MA Screening Digital Bilateral ??? HPV High Risk Types DNA Cervical Pap smear done today. Pt to schedule mammogram Treat yeast infection with Diflucan PO. Will provide further refills to treat ~monthly yeast infections if CMP, ordered by general care provider, is normal. Refill provided for Norethindrone 5mg daily as this is providing good menstrual management. Pt declined STD testing. Return in one year/PRN for preventive care or problems/concerns. Verbalized understanding and agreement with visit plan. Jillian Dubois DNP, DIRECTOR OF STATE, WHNP documented in this encounter Nursing Notes Freda Vasquez CMA - 01/18/2021 2:30 PM CDT Chief Complaint Patient presents with ??? 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 HPV HIGH RISK TYPES Routine 01/18/2021 3:11 PM Screening for R esults for this DNA CERVICAL CDT cervical cancer procedure ar e in the results section. documented in this encounter Results MA Screening Digital Bilateral (02/12/2021 3:28 PM COMPLIANCE DIRECTOR) Anatomical Region Laterality Modality Breast Bilateral Mammography Specimen (Source) Anatomical Location Collection Method / Collectio n Time Received Time / Laterality Volume Narrative 02/13/2021 1:49 PM COMPLIANCE DIRECTOR BILATERAL FULL FIELD DIGITAL SCREENING MAMMOGRAM Performed [...] with the findings. Jillian Dubois APRN, CNP IM MAMMOGRAPHY ORDER AVEL HPV High Risk Types DNA Cervical (01/18/2021 3:11 PM CDT) [facility] Method Time Signature Other HR HPV Negative Negative 01/23/2021 [facility] 3:26 PM MOLECULAR CDT DIAGNOSTICS HPV16 DNA Negative Negative 01/23/2021 [facility] 3:26 PM MOLECULAR CDT DIAGNOSTICS HPV18 DNA Negative Negative 01/23/2021 [facility] 3:26 PM MOLECULAR CDT DIAGNOSTICS FINAL This patient's sample is negative for HPV DNA. 01/23/2021 [facility] DIAGNOSIS 3:26 PM MOLECULAR CDT DIAGNOSTICS This test was developed and its performance characteristics determined by the [facility], Molecular Diagnostics Laboratory. It has not been cleared or approved by the FDA. [facility] laboratory is regulated un [place] CLIA as qualified to perform high-complexity testing. This test is used for clinical purposes. It should not be regarded as investigational or for research. METHODOLOGY: The Steve Vincent 4800 system uses automated extraction, simultaneous amplification of HPV (L1 region) and beta-globin, followed by real time detection of fluorescent labeled HPV and beta gabe bin using specific oligonucl eotide probes. The test specifically identified types HPV 16 DNA and HPV 18 DNA while concurrently detecting the rest of the high risk types (31, 33, 35, 39, 45, 51, 52, 56, 58, 59, 66 or 68). COMMENTS: This test is not i ntended for use as a screening device for woman under age 30 with normal cervical cytology. Results should be correlated with cytologic and histologic findings. Close clinical followup is recommended. Specimen Anatomical Collection Method Collection Time Receive d Time (Source) Location / / Volume Laterality Brushing CERVIX UTERI Non-blood 01/18/2021 3:11 PM 1 7:14 STRUCTURE / Collection / CDT AM CDT Unknown Unknown Jillian Dubois APRN E D TECH LAB - BLOOD ORDERABLE S Performing Organization Address City/State/ZIP Code Phon e Number MOLECULAR DIAGNOSTICS [place], [place] Diagnostics [phone] [address] [facility] [address], [address] [place], [place] [phone] DIAGNOSTICS Diagnostics Lab [phone], [facility] [address] [place] [address], [address] HPV Hold (Lab Only) (01/18/2021 3:11 PM CDT) Specimen Anatomical Collection Method Collection Time Receive d Time (Source) Location / / Volume Laterality Brushing CERVIX UTERI Non-blood 01/18/2021 3:11 PM 1 7:14 STRUCTURE / Collection / CDT AM CDT Unknown Unknown Jillian MARQUES Performing Organization Address City/State/ZIP Code Phon e Number MOLECULAR [place] [address] Diagnostics [address] [facility] [address], [address] Pap diagnostic with HPV (01/18/2021 3:11 PM CDT) Component Value Ref Test Analysis Performed At [facility] gist Range Method Time Signature Interpretation Negative for 01/22/2021 [facility] E lectronically Intraepithelial 2:30 PM LABORATORY sig shai by [place] or CDT Elsie Davis sa M, Malignancy (NILM) CT (ASCP) on 01/22/2021 at 2:30 PM Specimen Satisfactory for 01/22/2021 [facility] Adequacy evaluation, 2:30 PM LABORATORY endocervical/robles CDT sformation zone component absent Clinical none 01/22/2021 [facility] Information 2:30 PM LABORATORY CDT Reflex Testing Yes regardless of 01/22/2021 [facility] result 2:30 PM LABORATORY CDT Previous No 01/22/2021 [facility] Abnormal? 2:30 PM LABORATORY CDT Performing Labs The technical 01/22/2021 [facility] component of this 2:30 PM LABORATORY testing was CDT completed at [facility] Laboratory Specimen Anatomical Collection Method Collection Time Receive d Time (Source) Location / / Volume Laterality Brushing CERVIX UTERI 01/18/2021 3:11 PM 6:12 STRUCTURE / CDT PM CDT Unknown Jillian MARQUES Performing Organization Address City/State/ZIP Code Phon e Number SPECIALTY [place] [phone] [address] [facility] [address], [address] [facility] [address] [place] [address], [facility] documented in this encounter Visit Diagnoses Diagnosis Encounter for gynecological examination without abnormal finding - Primary Routine gynecological examination Screening for cervical cancer Screening for malignant neoplasm of the cervix Morbid obesity (H) Morbid obesity Encounter for screening mammogram for br east cancer Abnormal uterine bleeding (AUB) Vulvovaginal candidiasis Candidiasis of vulva and vagina Encounter for screening mammogram for br east cancer documented in this encounter Additional Health Concerns Assessment Noted Time PHQ-9 Depression Total Score: 0 04/06/2019 1:16 PM COMPLIANCE DIRECTOR documented as of this encounter Care Teams Entry Level Chemist Relationship Specialty Start Date End Date Nelda Peña, PCP - General Nurse Practitioner 02/02/18 [facility] [address] [place], [place] [address] Jose Lopez OD MD Optometry 03/04/18 Jillian Dubois Nurse Practitioner Nurse Practitioner 08/17/18 SHAW Infante [facility] [address] [place] [address] Nelda Peña, Assigned PCP 03/12/20 03/03/21 [facility] [address] [place], [place] [phone] Seda Moy Assigned OBGYN Provider 01/21/20 01/27/21 MD Jai [address] [facility] [facility] [facility] [address] [facility] [address] [place] [address] Nawaf Morocho MD Dermatology 04/24/20 [facility] [address] [facility] [address] [place] [address] Lottie Cedillo, Assigned Endocrinology 06/14/20 PA-C Provider [address] [place] [address] Azeem Lindsey, Assigned Behavioral 06/18/20 [facility] Health Provider [address] [place] [address] Liz Kirkland, Assigned Surgical 12/10/20 MD Teodoro Provider [address] [place] [address] documented as of this encounter
--- OUTSIDE RECORDS SUMMARY | 2022-02-19 14:25 | XMS_ITS | Encounter Summary ---
:1980 Author Organization [place] Address [facility]ly [facility] [place] [address] Care Team Providers Name Role Phone Nelda Peña GUM DIPPER RF TEST TECHNICIAN Primary Care Provider Jose Lopez OD Unavailable Jillian Dubois GUM DIPPER RF TEST TECHNICIAN Unavailable [phone] Nelda Peña GUM DIPPER RF TEST TECHNICIAN Unavailable [phone] Seda Moy MD Unavailable [phone] Nawaf Morocho MD Unavailable Lottie Cedillo PA-C Unavailable Azeem Lindsey APRN RF TEST TECHNICIAN Unavailable [phone] Teodoro Joaquin MD Unavailable [phone] Reason for Visit Reason Onset Date Comments Orders 12/25/2020 Encounter Details Date Type Department Care Team Description 12/25/2020 Telephone [facility] Lottie Cedillo PA-C Orders Endocrinology Clinic [address] [place] [phone] [place] [address] 3rd Floor [place] [phone] Social History Tobacco Use Types Packs/Day [...] at Date Recorded Female 05/08/2020 12:57 PM INSTRUCTIONAL TECHNOLOGY SPECIALIST COVID-19 Exposure Response Date Recorded In the last month, have you been in contact with No / Unsure 12/25/2020 3:12 PM CDT someone who was confirmed or suspected to have Coronavirus / COVID-19? documented as of this encounter Miscellaneous Notes Telephone Encounter - Brinda Marquis - 12/25/2020 3:22 PM CDT [facility] Phone Message May a detailed message be left on voicemail: yes Reason for Call: Order(s): Other: Reason for requested: Labs requesting orders for microalvumin to be sent over for patient Date needed: As soon as possible per lab specimen has already been collected Provider name: INO Cedillo Action Taken: Other: Endo Travel Screening: Not Applicable documented in this encounter Plan of Treatment Upcoming Encounters Date Type Specialty Care Team Description 04/04/2022 Office Visit scientist engineer Kaela Dubois APRN RF TEST TECHNICIAN [facility] [address] [place] [address] (Wo rk) 04/23/2022 Virtual Visit Endocrinology Lottie Cedillo PA-C [address] [place] [address] (Wo rk) documented as of this encounter Visit Diagnoses Diagnosis Type 1 diabetes mellitus with complicati ons (H) - Primary documented in this encounter Additional Health Concerns Assessment Noted Time PHQ-9 Depression Total Score: 0 04/06/2019 1:16 PM INSTRUCTIONAL TECHNOLOGY SPECIALIST documented as of this encounter Care Teams Student Specialist Relationship Specialty Start Date End Date Nelad Peña, PCP - General Nurse Practitioner 02/02/18 GUM DIPPER [facility] [address] [facility] [address] [place] [address] Jose Lopez OD MD Optometry 03/04/18 Jillian Dubois Nurse Practitioner Nurse Practitioner 08/17/18 SHAW Infante [facility] [address] [place], [place] [address] Nelda Peña, Assigned PCP 03/12/20 03/03/21 GUM DIPPER RF TEST TECHNICIAN [address] [facility] [address]41 [place], [place] [address] Seda Moy Assigned OBGYN Provider 01/21/20 01/27/21 MD Jai [address] [place], [place] [address] Nawaf Morocho MD Dermatology 04/24/20 [facility] 516 [facility] 98 [place], [place] [address] Lottie Cedillo, Assigned Endocrinology 06/14/20 [facility] Provider [address] [place] [address] Azeem Lindsey, Assigned Behavioral 06/18/20 [facility] Provider [facility] [place] [address] Liz Kirkland, Assigned Surgical 12/10/20 MD Teodoro Provider [address] [place] [address] documented as of this encounter
--- OUTSIDE RECORDS SUMMARY | 2022-02-19 14:25 | XMS_ITS | Encounter Summary ---
:1980 Author Organization [place] Address [address] [place] [address] Care Team Providers Name Role Phone Nelda Peña APRN HYDROELECTRIC STATION OPERATOR Primary Care Provider [phone] Jose Lopez OD Unavailable Jillian Dubois APRN HYDROELECTRIC STATION OPERATOR Unavailable [phone] Nelda Peña APRN HYDROELECTRIC STATION OPERATOR Unavailable [phone] Seda Moy MD Unavailable [phone] Nawaf Morocho MD Unavailable Nawaf Morocho MD Unavailable Lottie Cedillo PA-C Unavailable Azeem Lindsey APRN HYDROELECTRIC STATION OPERATOR Unavailable [phone] Encounter Details Date Type Department Care Team Description 12/05/2020 Travel Social History Tobacco Use Types Packs/Day [...] at Date Recorded Female 05/08/2020 12:57 PM RN CARE TRANSITION COVID-19 Exposure Response Date Recorded In the last month, have you been in contact with No / Unsure 12/05/2020 8:32 AM CDT someone who was confirmed or suspected to have Coronavirus / COVID-19? documented as of this encounter Plan of Treatment Upcoming Encounters Date Type Specialty Care Team Description 04/04/2022 Office Visit customer sales specialist Kaela Dubois APRN [facility] [address] [place], [place] [address] (Wo rk) 04/23/2022 Virtual Visit Endocrinology Lottie Cedillo PA-C [address] [place] [address] (Wo rk) documented as of this encounter Visit Diagnoses Not on filedocumented in this encounter Additional Health Concerns Assessment Noted Time PHQ-9 Depression Total Score: 0 04/06/2019 1:16 PM RN CARE TRANSITION documented as of this encounter Care Teams Fall Intern Relationship Specialty Start Date End Date Nelda Peña, PCP - General Nurse Practitioner 02/02/18 SHAW [facility] [address] [facility] [address] [place] [address] Jose Lopez OD MD Optometry 03/04/18 Jillian Dubois Nurse Practitioner Nurse Practitioner 08/17/18 SHAW Infante HYDROELECTRIC STATION OPERATOR [facility] [address] [place] [address] Nelda Peña, Assigned PCP 03/12/20 03/03/21 DECORATIVE CUTTING MACHINE TENDER HYDROELECTRIC STATION OPERATOR 420 [facility] 7[address] [place], [place] [address] Seda Moy Assigned OBGYN Provider 01/21/20 01/27/21 MD Jai [address] [place] [address] Nawaf Morocho MD Dermatology 04/24/20 [facility] [address] [facility] 98 [place] [address] Nawaf Morocho, Assigned Surgical 04/30/20 Provider [facility] [address] [facility] 98 [place], [place] [id number] Lottie Cedillo, Assigned Endocrinology 06/14/20 PA-C Provider [address] [place] [address] Azeem Lindsey, Assigned Behavioral 06/18/20 DECORATIVE CUTTING MACHINE TENDER [facility] Health Provider [address] [place] [address] documented as of this encounter
--- OUTSIDE RECORDS SUMMARY | 2022-02-19 14:25 | XMS_ITS | Encounter Summary ---
:1980 Author Organization [place] Address [facility] [place] [address] Care Team Providers Name Role Phone Nelda Peña PULMONARY FELLOW PORCELAIN ENAMEL INSTALLER Primary Care Provider [phone] Jose Lopez OD Unavailable Jillian Dubois PULMONARY FELLOW PORCELAIN ENAMEL INSTALLER Unavailable [phone] Nelda Peña PULMONARY FELLOW PORCELAIN ENAMEL INSTALLER Unavailable [phone] Seda Moy MD Unavailable [phone] Nawaf Morocho MD Unavailable Lottie Cedillo PA-C Unavailable Azeem Lindsey PULMONARY FELLOW PORCELAIN ENAMEL INSTALLER Unavailable [phone] Teodoro Joaquin MD Unavailable [phone] Reason for Visit Mental Health Outpatient (Routine) - Closed Specialty Diagnoses / Procedures Referred By Contact Refer red To Contact Psychiatry Diagnoses GET JANIS Sandoval Confirmed DS 04/21 Nancy Priest Procedures VIDEO VISIT NEW Referral ID Status Reason Start Date Expiration Date Visits Requ ested Visits Authorized [id number] Closed 05/08/2020 03/30/2021 26 26 Encounter Details Date Type Department Care Team Description 12/25/2020 Virtual Visit [facility] Azeem Lindsey, Jalil ode of recurrent major depressive disorder, unspecified depression episode severity (H); Mental Health & PULMONARY FELLOW PORCELAIN ENAMEL INSTALLER Anxiety Addiction [address] [place], [place] [address] [address] [place], [place] [address] [place] [address] Social History Tobacco Use Types [...] Date Recorded Female 05/08/2020 12:57 PM SALES SERVICE REPRESENTATIVE COVID-19 Exposure Response Date Recorded In the last month, have you been in contact with No / Unsure 01/18/2021 2:37 PM CDT someone who was confirmed or suspected to have Coronavirus / COVID-19? documented as of this encounter Progress Notes Azeem Lindsey, SHAW DIAZ - 12/25/2020 5:00 PM CDT Images from the original note were not included. VIDEO VISIT Tamiko Méndez is a 40 year old patient who is being evaluated via a billable video visit. The patient has been notified of following: We have found that certain health care needs can be provided without the need for an in-person physical exam. This service lets us provide the care you need with a video conversation. If a prescription is necessary we can send it directly to your pharmacy. [...] the billing office to correct it and that number is in the AVS?? . Patient has given verbal consent for video visit?: Yes How would you like to obtain your AVS?: not requested AVS SmartPhrase [PsychAVS] has been placed in 'Patient Instructions': N/A Video- Visit Details Type of service: video visit for medication management Time of service: ??? Date: 12/25/2020 ??? Video Start Time: 5:03 PM Video End Time: 5:18pm Reason for video visit: Patient unable to travel due to Covid-19 Originating Site (patient location): [facility] Location- Patient's home Distant Site (provider location): Remote location Mode of Communication: Video Conference via AmWell Consent: Patient has given verbal consent for video visit?: Yes [facility] PSYCHIATRIC PROGRESS NOTE Tamiko Méndez is a 40 year old pt who prefers the name Betty and pronoun she, her. Pertinent Background: See previous notes. Psych critical item history includes [no critical items]. Interim History [4, 4] The patient is a good historian, reports good treatment adherence and was last seen 11/21/20. Since the last visit, Betty reports she is doing pretty well. Propranolol has been helpful for acute anxiety and agitation. No side effect concerns. Used prior to eye surgery and helpful managing stress. Again discussed how propranolol can impact possible hypoglycemic episode. Continues to endorse work stress but managing effectively. No significant concerns with mood or anxiety. She continues to research therapists near her home. 11/21/20: Betty reports she is ok. However, she [...] Propranolol for agitation. Provided education on how itmay impact how she perceives possible hypoglycemic episodes. She verbalized understanding. 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 LEGAL- None EARLY HISTORY/ EDUCATION- Grew up in [place]. Graduated from [employer]. Graduated [employer] with degree in print journalism SOCIAL/ [...] 90 tablet 3 ??? Continuous Blood Gluc Assistant Manager Quality Management (FREESTYLE LEATHA 14 DAY READER) MARY 1 Application 5 times daily 1 Device 1 ??? Continuous Blood Gluc Sensor (FREESTYLE LEATHA 14 DAY SENSOR) MISC Change every 14 days. For additional refills, please schedule a follow-up appointment at [phone] 2 each 1 ??? Continuous Blood Gluc Sensor (FREESTYLE LEATHA 14 DAY SENSOR) MISC 1 Application 4 times daily 2 each 3 ??? Digestive Enzymes (PAPAYA AND ENZYMES PO) ??? Injection Device for insulin (INPEN 174-GCKD-DKACI) MARY 2 each 4 times daily (before meals and nightly) 2 each 0 ??? Injection Device for insulin (INPEN [id number]) MARY 1 each 4 times daily (before [...] 84 tablet 3 ??? OMEPRAZOLE PO ??? propranolol (INDERAL) 10 MG tablet Take 1 tablet (10 mg) by mouth 2 times daily as needed (anxiety/agitation) 60 tablet 0 ??? spironolactone (ALDACTONE) 100 MG [...] and calm, with good eye contact Speech: normal Language: intact Psychomotor: normal or unremarkable Mood: pretty well Affect: appropriate; was congruent to mood; was [...] Disorder, in remission Generalized Anxiety Disorder (Hx) DC Prescription Monitoring Program [PLATE CORRECTOR] was not checked today: provider not managing controlled medications. Plan m2, h3 1) Medications Continue Celexa 40mg daily Continue Propranolol 10-20mg BID PRN for agitation and fight or flight episodes 2) Therapy Individual therapy should be primary focus of treatment ? RTC: 3 months CRISIS NUMBERS: Provided routinely in AVS. Treatment [...] today and/or recorded in EPIC]. PROVIDER: Azeem Lnidsey APRN CNP documented in this encounter Plan of Treatment Upcoming Encounters Date Type Specialty Care Team Description 04/04/2022 Office Visit transport rn Kaela Dubois APRN CNP [facility] [address] [place] [address] (Wo rk) 04/23/2022 Virtual Visit Endocrinology Lottie Cedillo PA-C [address] [place] [address] (Wo rk) documented as of this encounter Visit Diagnoses Diagnosis 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, unspecified depression episode severity (H) Anxiety Anxiety state, unspecified documented in this encounter Additional Health Concerns Assessment Noted Time PHQ-9 Depression Total Score: 0 04/06/2019 1:16 PM SALES SERVICE REPRESENTATIVE documented as of this encounter Care Teams Dental Appliance Fixer Relationship Specialty Start Date End Date Nelda Peña, PCP - General Nurse Practitioner 02/02/18 SHAW [facility] 420 [facility] 741 [place], [place] [address] Jose Lopez OD MD Optometry 03/04/18 Jillian Dubois Nurse Practitioner Nurse Practitioner 08/17/18 SHAW Infante CNP [facility] [address] [place] [address] Nelda Peña, Assigned PCP 03/12/20 03/03/21 SHAW [facility] [address] [facility] [address] [place] [address] Seda Moy Assigned OBGYN Provider 01/21/20 01/27/21 MD Jai [address] [facility] 300 [place] [address] Nawaf Morocho MD Dermatology 04/24/20 [place] [address] [facility] 98 [place] [address] Lottie Cedillo, Assigned Endocrinology 06/14/20 PA-C Provider [address] [place] [address] Azeem Lindsey, Assigned Behavioral 06/18/20 [facility] Provider [address] [place] [address] Liz Kirkland, Assigned Surgical 12/10/20 MD Teodoro Provider [address] [place] [address] documented as of this encounter
--- OUTSIDE RECORDS SUMMARY | 2022-02-19 14:26 | XMS_ITS | Encounter Summary ---
:1980 Author Organization [place] Address [address] [place] [address] Care Team Providers Name Role Phone Nelda Peña APRN DENTAL CERAMIST ASSISTANT Primary Care Provider [phone] Jose Lopez OD Unavailable Jillian Dubois APRN DENTAL CERAMIST ASSISTANT Unavailable [phone] Nelda Peña APRN DENTAL CERAMIST ASSISTANT Unavailable [phone] Seda Moy MD Unavailable [phone] Nawaf Morocho MD Unavailable Nawaf Morocho MD Unavailable Lottie Cedillo PA-C Unavailable Azeem Lindsey APRN DENTAL CERAMIST ASSISTANT Unavailable [phone] Reason for Visit Reason Comments Retinal Evaluation Encounter Details Date Type Department Care Team Description 09/27/2020 Office Visit [facility] Eye Liz PINON OUS ENCOUNTER--DISREGARD (Primary Dx); Clinic - Maximo Kirkland, Stable proliferative diabeti c retinopathy of both eyes associated with type 1 diabetes mellitus (H) - Both Eyes; Aris Valerio MD Stable proliferative diabetic retinopath y of both eyes associated with type 1 diabetes mellitus (H) Building [address] [facility] 516 [place], [place] 9 Clin 9A [address] [place], [place] [phone] [address] (Work) [phone] Social History Tobacco Use Types Packs/Day Years [...] at Date Recorded Female 05/08/2020 12:57 PM COUNTERSINKER COVID-19 Exposure Response Date Recorded In the last month, have you been in contact with No / Unsure 09/27/2020 9:06 AM CDT someone who was confirmed or suspected to have Coronavirus / COVID-19? documented as of this encounter Progress Notes Essie Canseco - 09/27/2020 9:00 AM CDT Patient needed to reschedule due to provider running behind. Rescheduled to 10/04/20 Essie Canseco @ [facility] 10:45 AM September 27, 2020 documented in this encounter Nursing Notes Cortney Ambrosio - 09/27/2020 9:00 AM CDT Chief Complaints and History of Present Illnesses Patient presents with ??? Retinal Evaluation Chief Complaint(s) and History of Present Illness(es) Retinal Evaluation Laterality: both eyes Associated symptoms: Negative for flashes, floaters, eye pain and pain with eye movement Treatments tried: no treatments Pain scale: 0/10 Comments Evaluation of diabetic retinopathy of both eyes Vision blurred w extreme high in blood sugar Blood sugar 241 this am, last A1C 11.8 ,11/2020 Cortney Ambrosio [facility] 9:15 AM September 27, 2020 documented in this encounter Plan of Treatment Upcoming Encounters Date Type Specialty Care Team Description 04/04/2022 Office Visit control equipment electrician Kaela Dubois FOOD SAFETY TECHNICIAN DENTAL CERAMIST ASSISTANT [facility] [address] [place] [address] (Wo rk) 04/23/2022 Virtual Visit Endocrinology Lottie Cedillo PA-C [address] [place] [address] (Wo rk) Pending Results Name Type Priority Associated Diagnoses Date/Ti me Fundus Photos OU Opht Imaging Routine Stable proliferative 9:44 AM (both eyes) diabetic retinopathy of CDT both eyes associated with type 1 diabetes mellitus (H) OCT Retina Spectralis Opht Imaging Routine Stable proliferativ e 09/27/2020 9:44 AM OU (both eyes) diabetic retinopathy of CD T both eyes associated with type 1 diabetes mellitus (H) documented as of this encounter Visit Diagnoses Diagnosis ERRONEOUS ENCOUNTER--DISREGARD - Primary Stable proliferative diabetic retinopath y of both eyes associated with type 1 diabetes mellitus (H) - Both Eyes documented in this encounter Additional Health Concerns Assessment Noted Time PHQ-9 Depression Total Score: 0 04/06/2019 1:16 PM COUNTERSINKER documented as of this encounter Care Teams Electric Motor Controls Assembler Relationship Specialty Start Date End Date Nelda Peña, PCP - General Nurse Practitioner 02/02/18 FOOD SAFETY TECHNICIAN DENTAL CERAMIST ASSISTANT [address] [facility] [address] [place], [place] [address] Jose Lopez, SHELL ARRIOLA Optometry 03/04/18 Jillian Dubois Nurse Practitioner Nurse Practitioner 08/17/18 SHAW Infante DENTAL CERAMIST ASSISTANT [facility] [address] [place] [address] Nelda Peña, Assigned PCP 03/12/20 03/03/21 FOOD SAFETY TECHNICIAN DENTAL CERAMIST ASSISTANT 420 [facility] [address] [place], [place] [phone] Seda Moy Assigned OBGYN Provider 01/21/20 01/27/21 MD Jai [address] [place] [address] [address] [place] [address] Nawaf Morocho MD Dermatology 04/24/[address] [address] Nawaf Morocho, Assigned Surgical 04/30/[address] [address] Lottie Cedillo, Assigned Endocrinology 06/14/20 PA-C Provider [address] [place], [place] [id number] Azeem Lindsey, Assigned Behavioral 06/18/20 FOOD SAFETY TECHNICIAN [facility] Health Provider [address] [place] [address] documented as of this encounter
--- OUTSIDE RECORDS SUMMARY | 2022-02-19 14:26 | XMS_ITS | Encounter Summary ---
:1980 Author Organization [place] Address [address] [place] [address] Care Team Providers Name Role Phone Nelda Peña APRN HR REPRESENTATIVE Primary Care Provider [phone] Jose Lopez OD Unavailable Jillian Dubois APRN HR REPRESENTATIVE Unavailable [phone] Nelda Peña APRN HR REPRESENTATIVE Unavailable [phone] Seda Moy MD Unavailable [phone] Nawaf Morocho MD Unavailable Nawaf Morocho MD Unavailable Lottie Cedillo PA-C Unavailable Azeem Lindsey APRN HR REPRESENTATIVE Unavailable [phone] Encounter Details Date Type Department Care Team Description 10/17/2020 Travel Social History Tobacco Use Types Packs/Day [...] at Date Recorded Female 05/08/2020 12:57 PM ORTHOPEDIC TECH COVID-19 Exposure Response Date Recorded In the last month, have you been in contact with No / Unsure 10/17/2020 2:06 PM CDT someone who was confirmed or suspected to have Coronavirus / COVID-19? documented as of this encounter Plan of Treatment Upcoming Encounters Date Type Specialty Care Team Description 04/04/2022 Office Visit air traffic systems technician Kaela Dubois APRN [facility] [address] [place], [place] [address] (Wo rk) 04/23/2022 Virtual Visit Endocrinology Lottie Cedillo PA-C [address] [place] [address] (Wo rk) documented as of this encounter Visit Diagnoses Not on filedocumented in this encounter Additional Health Concerns Assessment Noted Time PHQ-9 Depression Total Score: 0 04/06/2019 1:16 PM ORTHOPEDIC TECH documented as of this encounter Care Teams Galley Boy Relationship Specialty Start Date End Date Nelda Peña, PCP - General Nurse Practitioner 02/02/18 SHAW [facility] [address] [facility] [address] [place], [place] [address] Jose Lopez OD MD Optometry 03/04/18 Jillian Dubois Nurse Practitioner Nurse Practitioner 08/17/18 SHAW Infante HR REPRESENTATIVE [facility] [address] [place] [address] Nelda Peña, Assigned PCP 03/12/20 03/03/21 GAS PLANT REPAIRER HR REPRESENTATIVE [address] [facility] [address]41 [place], [place] [address] Seda Moy Assigned OBGYN Provider 01/21/20 01/27/21 MD Jai [address] [place] [address] Nawaf Morocho MD Dermatology 04/24/20 [facility] 516 [facility] 98 [place] [address] Nawaf Morocho, Assigned Surgical 04/30/20 Provider [facility] [address] [facility] 98 [place], [place] [address] Lottie Cedillo, Assigned Endocrinology 06/14/20 PA-C Provider [address] [place] [address] Azeem Lindsey, Assigned Behavioral 06/18/20 GAS PLANT REPAIRER [facility] Health Provider [address] [place] [address] documented as of this encounter
--- OUTSIDE RECORDS SUMMARY | 2022-02-19 14:26 | XMS_ITS | Encounter Summary ---
:1980 Author Organization [place] Address [facility]0 [place] [address] Care Team Providers Name Role Phone Nelda Peña APRN COKE HANDLING SUPERVISOR Primary Care Provider [phone] Jose Lopez OD Unavailable Jillian Dubois APRN COKE HANDLING SUPERVISOR Unavailable [phone] Nelda Peña APRN COKE HANDLING SUPERVISOR Unavailable [phone] Seda Moy MD Unavailable [phone] Nawaf Morocho MD Unavailable Nawaf Morocho MD Unavailable Lottie Cedillo PA-C Unavailable Azeem Lindsey APRN COKE HANDLING SUPERVISOR Unavailable [phone] Encounter Details Date Type Department Care Team Description 10/25/2020 Travel Social History Tobacco Use Types Packs/Day [...] at Date Recorded Female 05/08/2020 12:57 PM MASS COMMUNICATIONS INSTRUCTOR COVID-19 Exposure Response Date Recorded In the last month, have you been in contact with No / Unsure 10/25/2020 8:48 AM CDT someone who was confirmed or suspected to have Coronavirus / COVID-19? documented as of this encounter Plan of Treatment Upcoming Encounters Date Type Specialty Care Team Description 04/04/2022 Office Visit data services developer Kaela Dubois APRN [facility] [address] [place], [place] [address] (Wo rk) 04/23/2022 Virtual Visit Endocrinology Lottie Cdeillo PA-C [address] [place] [address] (Wo rk) documented as of this encounter Visit Diagnoses Not on filedocumented in this encounter Additional Health Concerns Assessment Noted Time PHQ-9 Depression Total Score: 0 04/06/2019 1:16 PM MASS COMMUNICATIONS INSTRUCTOR documented as of this encounter Care Teams Intake Rn Relationship Specialty Start Date End Date Nelda Peña, PCP - General Nurse Practitioner 02/02/18 [facility] [address] [facility] [address] [place] [address] Jose Lopez OD MD Optometry 03/04/18 Jillian Dubois Nurse Practitioner Nurse Practitioner 08/17/18 SHAW Infante COKE HANDLING SUPERVISOR [facility] [address] [place] [address] Nelda Peña, Assigned PCP 03/12/20 03/03/21 WILDLIFE REFUGE MANAGER COKE HANDLING SUPERVISOR 420 [facility] 741 [place], [place] [id number] Seda Moy Assigned OBGYN Provider 01/21/20 01/27/21 MD Jai [address] [place] [address] Nawaf Morocho MD Dermatology 04/24/20 [facility] 516 [facility] 98 [place] [address] Nawaf Morocho, Assigned Surgical 04/30/20 Provider [facility] 516 [facility] 98 [place], [place] [id number] Lottie Cedillo, Assigned Endocrinology 06/14/20 PA-C Provider [address] [place] [address] Azeem Lindsey, Assigned Behavioral 06/18/20 WILDLIFE REFUGE MANAGER [facility] Health Provider [address] [place] [address] documented as of this encounter
--- OUTSIDE RECORDS SUMMARY | 2022-02-19 14:26 | XMS_ITS | Encounter Summary ---
:1980 Author Organization [place] Address [address] [place] [address] Care Team Providers Name Role Phone Nelda Peña APRN VISCOSITY WORKER Primary Care Provider [phone] Jose Lopez OD Unavailable Jillian Dubois APRN VISCOSITY WORKER Unavailable [phone] Nelda Peña APRN VISCOSITY WORKER Unavailable [phone] Seda Moy MD Unavailable [phone] Nawaf Morocho MD Unavailable Nawaf Morocho MD Unavailable Lottie Cedillo PA-C Unavailable Azeem Lindsey APRN VISCOSITY WORKER Unavailable [phone] Encounter Details Date Type Department Care Team Description 09/11/2020 Travel Social History Tobacco Use Types Packs/Day [...] at Date Recorded Female 05/08/2020 12:57 PM INVERTED BLOCK OPERATOR COVID-19 Exposure Response Date Recorded In the last month, have you been in contact with No / Unsure 09/11/2020 2:17 PM CDT someone who was confirmed or suspected to have Coronavirus / COVID-19? documented as of this encounter Plan of Treatment Upcoming Encounters Date Type Specialty Care Team Description 04/04/2022 Office Visit management consultant Kaela Dubois APRN [facility] [address] [place], [place] [address] (Wo rk) 04/23/2022 Virtual Visit Endocrinology Lottie Cedillo PA-C [address] [place] [address] (Wo rk) documented as of this encounter Visit Diagnoses Not on filedocumented in this encounter Additional Health Concerns Assessment Noted Time PHQ-9 Depression Total Score: 0 04/06/2019 1:16 PM INVERTED BLOCK OPERATOR documented as of this encounter Care Teams Rn Postpartum Relationship Specialty Start Date End Date Nelda Peña, PCP - General Nurse Practitioner 02/02/18 [facility] [address] [facility] [address] [place], [place] [address] Jose Lopez OD MD Optometry 03/04/18 Jillian Dubois Nurse Practitioner Nurse Practitioner 08/17/18 SHAW Infante VISCOSITY WORKER [facility] [address] [place] [address] Nelda Peña, Assigned PCP 03/12/20 03/03/21 LOFT WORKER PILE DRIVING VISCOSITY WORKER [address] [facility] [address]41 [place], [place] [id number] Seda Moy Assigned OBGYN Provider 01/21/20 01/27/21 MD Jai [address] [place] [address] Nawaf Morocho MD Dermatology 04/24/20 [facility] 516 [facility] 98 [place] [address] Nawaf Morocho, Assigned Surgical 04/30/20 Provider [facility] 516 [facility] 98 [place], [place] [id number] Lottie Cedillo, Assigned Endocrinology 06/14/20 PA-C Provider [address] [place] [address] Azeem Lindsey, Assigned Behavioral 06/18/20 LOFT WORKER PILE DRIVING [facility] Health Provider [address] [place] [address] documented as of this encounter
--- OUTSIDE RECORDS SUMMARY | 2022-02-19 14:26 | XMS_ITS | Encounter Summary ---
:1980 Author Organization [place] Address [address] [place] [address] Care Team Providers Name Role Phone Nelda Peña APRN KARATE TEACHER Primary Care Provider [phone] Jose Lopez OD Unavailable Jillian Dubois APRN KARATE TEACHER Unavailable [phone] Nelda Peña APRN KARATE TEACHER Unavailable [phone] Seda Moy MD Unavailable [phone] Nawaf Morocho MD Unavailable Nawaf Morocho MD Unavailable Lottie Cedillo PA-C Unavailable Azeem Lindsey APRN KARATE TEACHER Unavailable [phone] Reason for Visit Reason Comments retina Diabetic Retinopathy Follow Up Encounter Details Date Type Department Care Team Description 10/25/2020 Office Visit [facility] Eye Liz Stable proliferative diabetic retinopathy of both eyes associated with type 1 diabetes mellitus (H) (Primary Dx); Clinic - Maximo Kirkland, Nuclear sclerotic cataract o f both eyes; Aris Valerio MD Myopic astigmatism of both eyes Building 909 [facility] 516 [place], [place] 9 Fl Clin 9A [address] [place], [place] [phone] [address] (Work) [phone] Social History Tobacco Use Types Packs/Day Years [...] at Date Recorded Female 05/08/2020 12:57 PM BARREL RIFLER HOOK COVID-19 Exposure Response Date Recorded In the last month, have you been in contact with No / Unsure 10/25/2020 8:48 AM CDT someone who was confirmed or suspected to have Coronavirus / COVID-19? documented as of this encounter Progress Notes Teodoro Joaquin MD - 10/25/2020 9:15 AM CDT Here for PRP left eye only today CC - Diabetic retinopathy each eye INTERVAL HISTORY - here for PRP left eye HPI - Tamiko Méndez is a 39 [...] AMD; Glaucoma: Father ?? RETINAL IMAGING: OCT 6-30-21 OU - within normal limits; no IRF FA 10-17-20 right eye PRP scars; capillary nonperfusion temp macula and NVEs with leakage mid periphery left eye extensive NVE with leakage ASSESSMENT & PLAN 1. 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 Myopia each eye Comfortable with current glasses Complete documentation of historical and exam elements [...] MD] documented in this encounter Nursing Notes Essie Canseco - 10/25/2020 9:15 AM CDT Chief Complaints and History of Present Illnesses Patient presents with ??? retina ??? Diabetic Retinopathy Follow Up documented in this encounter Plan of Treatment Upcoming Encounters Date Type Specialty Care Team Description 04/04/2022 Office Visit print decorator Kaela Dubois APRN [facility] [address] [place] [address] (Wo rk) 04/23/2022 Virtual Visit Endocrinology Lottie Cedillo ERROL [address] [place] [address] (Wo rk) documented as of this encounter Procedures Procedure Name Priority Date/Time Associated Diagnosis Comme nts PANRETINAL Routine 10/25/2020 12:58 Stable proliferative Res ults for this PHOTOCOAGULATION (PRP) PM CDT diabetic retinopat hy procedure are in OS (LEFT EYE) of both eyes the results associated with type section . 1 diabetes mellitus (H) documented in this encounter Results Panretinal Photocoagulation (PRP) OS (left eye) (10/25/2020 12:58 PM CDT) Narrative Teodoro Joaquin MD - 10/31/19 21 10:51 AM CDT Sign in/Time Out: Sign in communication completed, Correct patient, Correct medication, Correct procedure, C orrect site . Attending assisted by: Fellow . Pre-Procedure Pain: 0 . Post-Procedure Pain: 0 . Sign Out: Sign out discussion complete d, Patient counseled on signs and symptoms for which to call and/or return to clinic, Patient tolerated procedure well with no complications . Notes Pre-operative diagnosis: ??proliferative diabetic retinopathy left eye Post-operative diagnosis: ?? same. Procedure performed: ?? Panretinal laser photocoagulation (PRP) Anesthesia: ? Topical proparacaine 0 .5% drops Complications: ?? None. Description of the procedure: ?? Informed consent was obtained from the p atient. ??The patient was brought to the laser room where argon laser was applied to the reitna. Parameters: -Lens: Quadraspheric -Spot size: 200 microns -Power: ??240 mW -Duration: 100 ms -Total spots: 961 The patient tolerated the procedure well . ??There were no complications. The patient ??left the clinic in stable condition. ?? Retinal detachment ??Precautions were di scussed with the patient and was asked to return if any of those occur I personally reviewed the ophthalmic chaz t(s) associated with this encounter, agree with the interpretation (s) as documented by the resident/fellow, and have edited the cor responding report(s) as necessary. Teodoro Hill MD Teodoro Kirkland MD OPHTHALMOLOGY documented in this encounter Visit Diagnoses Diagnosis Stable proliferative diabetic retinopath y of both eyes associated with type 1 diabetes mellitus (H) - Primary Nuclear sclerotic cataract of both eyes Senile [...] Depression Total Score: 0 04/06/2019 1:16 PM BARREL RIFLER HOOK documented as of this encounter Care Teams Strand Buncher Fine Wire Relationship Specialty Start Date End Date Nelda Peña, PCP - General Nurse Practitioner 02/02/18 HAIR SPINNING MACHINE OPERATOR [facility] 420 [facility] 7[address] [place] [address] Jose Lopez OD MD Optometry 03/04/18 Jillian Dubois Nurse Practitioner Nurse Practitioner 08/17/18 SHAW Infante [facility] [address] [place], [place] [address] Nelda Peña, Assigned PCP 03/12/20 03/03/21 HAIR SPINNING MACHINE OPERATOR [facility] 420 [facility] [address] [place], [place] [address] Seda Moy Assigned OBGYN Provider 01/21/20 01/27/21 MD Jai [address] [place] [address] Nawaf Morocho MD Dermatology 04/24/20 [facility] 516 [facility] 98 [place], [place] [address] Nawaf Morocho, Assigned Surgical 04/30/20 MD Provider [address] [place], [place] [address] Lottie Cedillo, Assigned Endocrinology 06/14/20 PA-C Provider [address] [place] [id number] Azeem Lindsey, Assigned Behavioral 06/18/20 [facility] Provider [facility]0 [place], [place] [address] documented as of this encounter
--- OUTSIDE RECORDS SUMMARY | 2022-02-19 14:26 | XMS_ITS | Encounter Summary ---
:1980 Author Organization [place] Address [address] [place] [address] Care Team Providers Name Role Phone Nelda Peña APRN FLEET DIRECTOR Primary Care Provider Jose Lopez OD Unavailable Jillian Dubois APRN FLEET DIRECTOR Unavailable [phone] Nelda Peña APRN FLEET DIRECTOR Unavailable [phone] Seda Moy MD Unavailable [phone] Lisa Hughes MD Unavailable Nawaf Morocho MD Unavailable Nawaf Morocho MD Unavailable Reason for Visit Reason Comments Medication Refill Spironolactone 100 MG Oral T ablet Encounter Details Date Type Department Care Team Description [facility]/31[facility] MD Jay (Spironolactone 100 MG [facility] Oral Tablet) [address] [place] [address] [phone] (Wo rk) Social History Tobacco Use Types Packs/Day Years [...] at Date Recorded Female 05/08/2020 12:57 PM MAORI PHYSIOTHERAPIST COVID-19 Exposure Response Date Recorded In the last month, have you been in contact with No / Unsure 05/24/2020 9:08 AM MAORI PHYSIOTHERAPIST someone who was confirmed or suspected to have Coronavirus / COVID-19? documented as of this encounter Miscellaneous Notes Telephone Encounter - Sarah Arauz RN - 06/01/2020 1:48 PM CST Spironolactone 100 MG Oral Tablet Last Written Prescription Date: 03/28/2020 Last Fill Quantity: 30, # refills: 11 Last Office Visit : 05/24/2020 Future Office visit: 08/24/2020 30 Tabs, 11 Refills sent to pharm. Order back in February was not received at the pharmacy for Pt care. Sarah Arauz RN Central Triage Red Flags/Med Refills I PHYSIOTHERAPIST documented in this encounter Plan of Treatment Upcoming Encounters Date Type Specialty Care Team Description 04/04/2022 Office Visit advertising editor Kaela Dubois APRN [facility] [address] [place] [phone] (Wo rk) 04/23/2022 Virtual Visit Endocrinology Lottie Cedillo PA-C [address] [place] [address] (Wo rk) documented as of this encounter Visit Diagnoses Diagnosis Acne vulgaris Other acne documented in this encounter Additional Health Concerns Assessment Noted Time PHQ-9 Depression Total Score: 0 04/06/2019 1:16 PM MAORI PHYSIOTHERAPIST documented as of this encounter Care Teams Jewelry Estimator Relationship Specialty Start Date End Date Nelda Peña, PCP - General Nurse Practitioner 02/02/18 ENVIRONMENTAL HEALTH AIDE [facility] 420 [facility] 741 [place] [address] Jose Lopez OD MD Optometry 03/04/18 Jillian Dubois Nurse Practitioner Nurse Practitioner 08/17/18 SHAW Infante [facility] [address] [place], [place] [address] Nelda Peña, Assigned PCP 03/12/20 03/03/21 ENVIRONMENTAL HEALTH AIDE FLEET DIRECTOR 420 [facility] 741 [place], [place] [address] Seda Moy Assigned OBGYN Provider 01/21/20 01/27/21 MD Jai [address] [place], [place] [address] Lisa Hughes, Assigned Endocrinology 01/21/20 06/13/20 Provider [address] [place], [place] [address] Nawaf Morocho MD Dermatology 04/24/20 [facility] 516 [facility] 98 [place] [address] Nawaf Morocho, Assigned Surgical 04/30/20 MD Provider [address] [address] documented as of this encounter
--- OUTSIDE RECORDS SUMMARY | 2022-02-19 14:26 | XMS_ITS | Encounter Summary ---
:1980 Author Organization [place] Address [address] [place] [address] Care Team Providers Name Role Phone Nelda Peña APRN ASSISTED LIVING MANAGER Primary Care Provider [phone] Jose Lopez OD Unavailable Jillian Dubois APRN ASSISTED LIVING MANAGER Unavailable [phone] Nelda Peña APRN ASSISTED LIVING MANAGER Unavailable [phone] Seda Moy MD Unavailable [phone] Nawaf Morocho MD Unavailable Nawaf Morocho MD Unavailable Lottie Cedillo PA-C Unavailable Azeem Lindsey APRN ASSISTED LIVING MANAGER Unavailable [phone] Reason for Visit Reason Comments Diabetic Retinopathy Follow Up Encounter Details Date Type Department Care Team Description 10/17/2020 Office Visit [facility] Eye Liz Stable proliferative diabetic retinopathy of both eyes associated with type 1 diabetes mellitus (H) (Primary Dx); Clinic - Maximo Kirkland, Nuclear sclerotic cataract o f both eyes; Aris Valerio MD Myopic astigmatism of both eyes Building 9 [facility] 516 [place], [place] 9 Fl Clin 9A [address] [place], [place] [phone] [address] (Work) [phone] Social History Tobacco Use Types Packs/Day Years [...] at Date Recorded Female 05/08/2020 12:57 PM GROUND CREW LINESMAN COVID-19 Exposure Response Date Recorded In the last month, have you been in contact with No / Unsure 10/17/2020 2:06 PM CDT someone who was confirmed or suspected to have Coronavirus / COVID-19? documented as of this encounter Progress Notes Teodoro Joaquin MD - 10/17/2020 2:00 PM CDT CC - Diabetic retinopathy each eye INTERVAL HISTORY - Initial visit HPI - Tamiko Méndez is a 39 [...] - within normal limits; no IRF FA 7-21 right eye PRP scars; capillary nonperfusion temp macula and NVEs with leakage mid periphery left eye extensive NVE with leakage ASSESSMENT & PLAN 1. PDR each eye Poorly controlled DMI with most recent A1c 11.8 S/P PRP right eye 2009 NVEs in both eyes with extensive ischemia left eye; no vit heme Plan for PRP left eye first (will do next week) and then right eye in a few [...] encounter Nursing Notes Meaghan Gomez COMT - 10/17/2020 2:00 PM CDT Chief Complaints and History of Present Illnesses Patient presents with ??? Diabetic Retinopathy Follow Up Chief Complaint(s) and History of Present Illness(es) Diabetic Retinopathy Follow Up Comments Pt states vision has improved with new glasses. No eye pain today. No flashes or floaters. No redness or dryness. DM1 BS: 268 taken 2 hours ago. Lab Results Component Value Date A1C 11.9 12/07/2019 A1C 11.5 03/21/2018 A1C 11.9 08/29/2006 KAYLA Lucero October 17, 2020 2:15 PM documented in this encounter Plan of Treatment Upcoming Encounters Date Type Specialty Care Team Description 04/04/2022 Office Visit tosser Kaela Dubois, INFORMATICS PHARMACIST ASSISTED LIVING MANAGER [facility] [address] [place] [address] (Wo rk) 04/23/2022 Virtual Visit Endocrinology Lottie Cedillo PA-C [address] [place], [place] [address] (Wo rk) documented as of this encounter Procedures Procedure Name Priority Date/Time Associated Diagnosis Comme nts FLUORESCEIN Routine 10/17/2020 4:28 PM Stable proliferative R esults for this ANGIOGRAPHY OU (BOTH CDT diabetic retinopathy procedure are in EYES) of both eyes the results associated with type section . 1 diabetes mellitus (H) documented in this encounter Results Fluorescein Angiography OU (both eyes) (10/17/2020 4:28 PM CDT) Narrative Teodoro Joaquin MD - 10/18/19 4:28 PM CDT Right Eye Filling: Abnormal . Leakage: Present . Ischemia: Peripheral . Test Findings: Abnormal . Interpretation: Abnormal . Plan: Surgery . Interval: Initial . Left Eye Filling: Abnormal . Leakage: Present . Ischemia: Peripheral . Test Findings: Abnormal . Interpretation: Abnormal . Plan: Surgery . Interval: Initial . Teodoro Kirkland MD OPHTHALMOLOGY documented in this encounter Visit Diagnoses Diagnosis Stable proliferative diabetic retinopath y of both eyes associated with type 1 diabetes mellitus (H) - Primary Nuclear sclerotic cataract of both eyes Senile nuclear sclerosis Myopic astigmatism of both eyes documented in this encounter Additional Health Concerns Assessment Noted Time PHQ-9 Depression Total Score: 0 04/06/2019 1:16 PM GROUND CREW LINESMAN documented as of this encounter Care Teams Livestock Counter Relationship Specialty Start Date End Date Nelda Peña, PCP - General Nurse Practitioner 02/02/18 INFORMATICS PHARMACIST ASSISTED LIVING MANAGER [address] [facility] [address] [place] [address] Jose Lopez, SHELL ARRIOLA Optometry 03/04/18 Jillian Dubois Nurse Practitioner Nurse Practitioner 08/17/18 SHAW Infante ASSISTED LIVING MANAGER [facility] [address] [place] [address] Nelda Peña, Assigned PCP 03/12/20 03/03/21 INFORMATICS PHARMACIST ASSISTED LIVING MANAGER 420 [facility] 741 [place] [address] Seda Moy Assigned OBGYN Provider 01/21/20 01/27/21 MD Jai [address] [place] [address] [address] [place] [address] Nawaf Morocho MD Dermatology 04/24/[address] [address] Nawaf Morocho, Assigned Surgical 04/30/[address] [address] Lottie Cedillo, Assigned Endocrinology 06/14/20 PA-C Provider [address] [place], [place] [phone] Azeem Lindsey, Assigned Behavioral 06/18/20 INFORMATICS PHARMACIST ASSISTED LIVING MANAGER Health Provider [address] [place] [address] documented as of this encounter
--- OUTSIDE RECORDS SUMMARY | 2022-02-19 14:26 | XMS_ITS | Encounter Summary ---
:1980 Author Organization [place] Address [facility] [place] [address] Care Team Providers Name Role Phone Nelda Peña COGNOS BI DEVELOPER STUDIO OPERATION ENGINEER Primary Care Provider Jose Lopez OD Unavailable Jillian Dubois APRN STUDIO OPERATION ENGINEER Unavailable [phone] Nelda Peña APRN STUDIO OPERATION ENGINEER Unavailable [phone] Seda Moy MD Unavailable [phone] Nawaf Morocho MD Unavailable Nawaf Morocho MD Unavailable Lottie Cedillo PA-C Unavailable Azeem Lindsey APRN STUDIO OPERATION ENGINEER Unavailable [phone] Reason for Visit Reason Onset Date Comments Orders 10/19/2020 Encounter Details Date Type Department Care Team Description 10/19/2020 Telephone [facility] Lottie Cedillo PA-C Orders Endocrinology Clinic [address] [place] [address] [place] [address] [place] [address] [place] [phone] Social History Tobacco Use Types Packs/Day [...] at Date Recorded Female 05/08/2020 12:57 PM CONTINUOUS DRYOUT OPERATOR HELPER COVID-19 Exposure Response Date Recorded In the last month, have you been in contact with No / Unsure 10/25/2020 8:48 AM CDT someone who was confirmed or suspected to have Coronavirus / COVID-19? documented as of this encounter Miscellaneous Notes Telephone Encounter - Naomie Estrella MA - 10/25/2020 12:14 PM CDT Lab orders placed. Telephone Encounter - Cherrie Cantrell - 10/19/2020 8:51 AM CDT Health Call Center Phone Message May a detailed message be left on voicemail: yes Reason for Call: Order(s): Other: Reason for requested: Per Patient is wanting to have lab orders put in to have done prior to appt on11/07/2020. Please advise Patient is wanting to have A1C order put in. Date needed: david Provider name: Nguyen Action Taken: Message routed to: [facility] Endo Travel Screening: Not Applicable documented in this encounter Plan of Treatment Upcoming Encounters Date Type Specialty Care Team Description 04/04/2022 Office Visit global implementation manager Kaela Dubois APRN [facility] [address] [place], [place] [id number] (Wo rk) 04/23/2022 Virtual Visit Endocrinology Lottie Cedillo PA-C [address] [place], [place] [address] (Wo rk) documented as of this encounter Results (ABNORMAL) Hemoglobin A1c (12/25/2020 3:25 PM CDT) [facility] gist Method Time Signature Hemoglobin A1C 10.9 (H) 0.0 - 5.6 12/25/2020 [facility] % 3:52 PM CDT Comment: Normal <5.7% Prediabetes 5.7-6.4% ?? Diabetes 6.5% or higher Note: Adopted from ADA consensus guideli kale. Specimen Anatomical Collection Method / Collection Time Recei seng Time (Source) Location / Volume Laterality Blood STRUCTURE OF RIGHT Venipuncture / 12/25/2020 3:25 11/30 3:25 UPPER LIMB / Unknown PM CDT PM CDT Unknown Lottie Cedillo PA-C LAB - BLOOD ORDERABLES Performing Organization Address City/State/ZIP Code Phon e Number [place] [address] [phone] [facility] [address] [facility] Lab (no room number, 1st floor of clinic) [facility] [place], [place] [phone] [facility] [phone] [address] [facility] Lab (no room number, 1st floor of clinic) documented in this encounter Visit Diagnoses Diagnosis Type 1 diabetes mellitus with complicati ons (H) - Primary documented in this encounter Additional Health Concerns Assessment Noted Time PHQ-9 Depression Total Score: 0 04/06/2019 1:16 PM CONTINUOUS DRYOUT OPERATOR HELPER documented as of this encounter Care Teams Agency Appointments Supervisor Relationship Specialty Start Date End Date Nelda Peña, PCP - General Nurse Practitioner 02/02/18 COGNOS BI DEVELOPER [facility] 420 [facility] [address] [place], [place] [address] Jose Lopez OD MD Optometry 03/04/18 Jillian Dubois Nurse Practitioner Nurse Practitioner 08/17/18 SHAW Infante [facility] [address] [place], [place] [address] Nelda Peña, Assigned PCP 03/12/20 03/03/21 COGNOS BI DEVELOPER [facility] 420 [facility] [address] [place] [address] Seda Moy Assigned OBGYN Provider 01/21/20 01/27/21 MD Jai [address] [place] [address] [address] [place] [address] Nawaf Morocho MD Dermatology 04/24/[address] [address] Nawaf Morocho, Assigned Surgical 04/30/[address] 4[address] Lottie Cedillo, Assigned Endocrinology 06/14/20 PA-C Provider [address] [place] [address] Azeem Lindsey, Assigned Behavioral 06/18/20 COGNOS BI DEVELOPER [facility] Health Provider [address] [place], [place] [address] documented as of this encounter
--- OUTSIDE RECORDS SUMMARY | 2022-02-19 14:26 | XMS_ITS | Encounter Summary ---
:1980 Author Organization [place] Address [address] [place] [address] Care Team Providers Name Role Phone Nelda Peña APRN [employer]ODU[employer] FACTORY WORKER Primary Care Provider Jose Lopez OD Unavailable Jillian Dubois APRN [employer] FACTORY WORKER Unavailable [phone] Nelda Peña APRN [employer] FACTORY WORKER Unavailable [phone] Seda Moy MD Unavailable [phone] Nawaf Morocho MD Unavailable Nawaf Morocho MD Unavailable Lottie Cedillo-C Unavailable Azeem Lindsey APRN [employer] FACTORY WORKER Unavailable [phone] Reason for Visit Reason Onset Date Comments Refill Request 09/29/2020 Continuous Blood Glu c Sensor (FREESTYLE LEATHA 14 DAY SENSOR) [facility] Encounter Details Date Type Department Care Team Description 09/29/2020 Refill M [facility] Lottie Cedillo, Refil l Request Endocrinology Clinic PA-C (Continuous Blood Gluc [place] [address] Sensor (FREESTYLE LEATHA [address] [place], [place] 14 DAY SENSOR) [facility]) 3rd Floor [address] [place], [place] [phone] Social History Tobacco Use [...] at Date Recorded Female 05/08/2020 12:57 PM PANTOGRAPH OPERATOR COVID-19 Exposure Response Date Recorded In the last month, have you been in contact with No / Unsure 09/27/2020 9:06 AM CDT someone who was confirmed or suspected to have Coronavirus / COVID-19? documented as of this encounter Plan of Treatment Upcoming Encounters Date Type Specialty Care Team Description 04/04/2022 Office Visit broadcast checker Kaela Dubois APRN [facility] [address] [place], [place] [address] (Wo rk) 04/23/2022 Virtual Visit Endocrinology Lottie Cedillo PA-C [address] [place] [address] (Wo rk) documented as of this encounter Visit Diagnoses Diagnosis Type 1 diabetes mellitus with complicati ons (H) documented in this encounter Additional Health Concerns Assessment Noted Time PHQ-9 Depression Total Score: 0 04/06/2019 1:16 PM PANTOGRAPH OPERATOR documented as of this encounter Care Teams Hostess Cashier Relationship Specialty Start Date End Date Nelda Peña, PCP - General Nurse Practitioner 02/02/18 BEN DAY ARTIST [facility] 420 [facility] EMER[facility]PARTMENT [address] [place], [place] [address] Jose Lopez OD MD Optometry 03/04/18 Jillian Dubois Nurse Practitioner Nurse Practitioner 08/17/18 SHAW Infante [facility] [address] [place] [address] Nleda Peña, Assigned PCP 03/12/20 03/03/21 BEN DAY ARTIST [facility] 420 [facility] EM[facility] [address] [place] [address] Seda Moy Assigned OBGYN Provider 01/21/20 01/27/21 MD Jai [address] [place] [address] [address] [place] [address] Nawaf Morocho MD Dermatology 04/24/[address] [address] Nawaf Morocho, Assigned Surgical 04/30/[address] [address] Lottie Cedillo, Assigned Endocrinology 06/14/20 PA-C Provider [address] [place], [place] [address] Azeem Lindsey, Assigned Behavioral 06/18/20 [facility] [address] [place] [address] documented as of this encounter
--- OUTSIDE RECORDS SUMMARY | 2022-02-19 14:26 | XMS_ITS | Encounter Summary ---
:1980 Author Organization [place] Address [address] [facility] [place] [address] Care Team Providers Name Role Phone Nelda Peña INKJET OPERATOR FOREIGN FOOD SPECIALTY COOK Primary Care Provider Jose Lopez OD Unavailable Jillian Dubois APRN FOREIGN FOOD SPECIALTY COOK Unavailable [phone] Nelda Peña APRN FOREIGN FOOD SPECIALTY COOK Unavailable [phone] Seda Moy MD Unavailable [phone] Nawaf Morocho MD Unavailable Nawaf Morocho MD Unavailable Lottie Cedillo PA-C Unavailable Azeem Lindsey APRN FOREIGN FOOD SPECIALTY COOK Unavailable [phone] Reason for Visit Reason Onset Date Comments Refill Request 10/30/2020 norethindrone Encounter Details Date Type Department Care Team Description 10/30/2020 [facility] Women's Nurse, [facility] Refill Request Clinic [place] (norethindrone) [address] [place] [facility] [address] [place], [place] [phone] Social History Tobacco Use Types Packs/Day Years [...] at Date Recorded Female 05/08/2020 12:57 PM FOREST PATHOLOGY PROFESSOR COVID-19 Exposure Response Date Recorded In the last month, have you been in contact with No / Unsure 10/25/2020 8:48 AM CDT someone who was confirmed or suspected to have Coronavirus / COVID-19? documented as of this encounter Miscellaneous Notes Telephone Encounter - Freda Zayas RN - 10/30/2020 2:59 PM CDT Refill request received for norethindrone. Last in clinic 11/02/2019. Pt is due for annual exam, last pap smear 2016. Short term refill sent. payleven message sent to patient instructing her to scheduleannual exam. documented in this encounter Plan of Treatment Upcoming Encounters Date Type Specialty Care Team Description 04/04/2022 Office Visit animal chiropractor Kaela Dubois APRN [facility] [address] [place] [address] (Wo rk) 04/23/2022 Virtual Visit Endocrinology Lottie Cedillo , PAFacundoC [address] [place], [place] [address] (Wo rk) documented as of this encounter Visit Diagnoses Diagnosis Abnormal uterine bleeding (AUB) documented in this encounter Additional Health Concerns Assessment Noted Time PHQ-9 Depression Total Score: 0 04/06/2019 1:16 PM FOREST PATHOLOGY PROFESSOR documented as of this encounter Care Teams Body Die Maker Relationship Specialty Start Date End Date Nelda Peña, PCP - General Nurse Practitioner 02/02/18 INKJET OPERATOR [employer] 420 [facility] 741 [place], [place] [address] Jose Lopez OD MD Optometry 03/04/18 Jillian Dubois Nurse Practitioner Nurse Practitioner 08/17/18 SHAW Infante [facility] [address] [place] [address] Nelda Peña, Assigned PCP 03/12/20 03/03/21 INKJET OPERATOR [employer] 420 [facility] [address]41 [place], [place] [address] Seda Moy Assigned OBGYN Provider 01/21/20 01/27/21 MD Jai [address] [place] [address] [place] [address] Nawaf Morocho MD Dermatology 04/24/[address] [address] Nawaf Morocho, Assigned Surgical 04/30/[address] [id number] Lottie Cedillo, Assigned Endocrinology 06/14/20 PA-C Provider [address] [place] [address] Azeem Lindsey, Assigned Behavioral 06/18/20 [facility] Provider [address] [place], [place] [address] documented as of this encounter
--- OUTSIDE RECORDS SUMMARY | 2022-02-19 14:26 | XMS_ITS | Encounter Summary ---
:1980 Author Organization [place] Address [address] [place] [address] Care Team Providers Name Role Phone Nelda Peña APRN ACREAGE REPORTER Primary Care Provider [phone] Jose Lopez OD Unavailable Jillian Dubois APRN ACREAGE REPORTER Unavailable [phone] Nelda Peña APRN ACREAGE REPORTER Unavailable [phone] Seda Moy MD Unavailable [phone] Nawaf Morocho MD Unavailable Nawaf Morocho MD Unavailable Lottie Cedillo-C Unavailable Azeme Lindsey APRN ACREAGE REPORTER Unavailable [phone] Reason for Visit Reason Onset Date Comments Refill Request 06/29/2020 Continuous Blood Glu c Sensor (FREESTYLE LEATHA 14 DAY SENSOR) [facility] Encounter Details Date Type Department Care Team Description 06/29/2020 Refill M [facility] Lottie Cedillo, Refil l Request Endocrinology Clinic PA-C (Continuous Blood Gluc [place] [address] Sensor (FREESTYLE LEATHA 9[address] [place], [place] 14 DAY SENSOR) [facility] 3rd Floor [address] [place], [place] [phone] Social History Tobacco Use [...] at Date Recorded Female 05/08/2020 12:57 PM PURCHASING EXPEDITOR documented as of this encounter Miscellaneous Notes Telephone Encounter - Emma Hall RN - 06/30/2020 8:47 AM CDT Last Clinic Visit: 12/09/19 recommended 3 month follow up, no upcoming appointments scheduled. 90 dayrefill provided per protocol, routed to clinic scheduling for follow up documented in this encounter Plan of Treatment Upcoming Encounters Date Type Specialty Care Team Description 04/04/2022 Office Visit barrel assembler Kaela Dubois APRN [facility] [address] [place] [address] (Wo rk) 04/23/2022 Virtual Visit Endocrinology Lottie Cedillo , ERROL [address] [place] [address] (Wo rk) documented as of this encounter Visit Diagnoses Diagnosis Type 1 diabetes mellitus with complicati ons (H) documented in this encounter Additional Health Concerns Assessment Noted Time PHQ-9 Depression Total Score: 0 04/06/2019 1:16 PM PURCHASING EXPEDITOR documented as of this encounter Care Teams Hospital Aide Relationship Specialty Start Date End Date Nelda Peña, PCP - General Nurse Practitioner 02/02/18 MINE SAFETY MANAGER ACREAGE REPORTER 420 [facility] [address] [place], [place] [address] Jose Lopez OD MD Optometry 03/04/18 Jillian Dubois Nurse Practitioner Nurse Practitioner 08/17/18 SHAW Infante [facility] [address] [place], [place] [address] Nelda Peña, Assigned PCP 03/12/20 03/03/21 MINE SAFETY MANAGER ACREAGE REPORTER 420 [facility] [address] [place], [place] [address] Seda Moy Assigned OBGYN Provider 01/21/20 01/27/21 MD Jai [address] [place], [place] [address] Nawaf Morocho MD Dermatology 04/24/[address] [address] Nawaf Morocho, Assigned Surgical 04/30/[address] [address] Lottie Cedillo, Assigned Endocrinology 06/14/20 PA-C Provider [address] [place] [address] Azeem Lindsey, Assigned Behavioral 06/18/20 [facility] Provider [facility] [place] [address] documented as of this encounter
--- OUTSIDE RECORDS SUMMARY | 2022-02-19 14:26 | XMS_ITS | Encounter Summary ---
:1980 Author Organization [place] Address [facility] [place] [address] Care Team Providers Name Role Phone Nelda Peña APRN EFFICIENCY MINER BLASTING Primary Care Provider [phone] Jose Lopez OD Unavailable Jillian Dubois APRN EFFICIENCY MINER BLASTING Unavailable [phone] Nelda Peña APRN EFFICIENCY MINER BLASTING Unavailable [phone] Seda Moy MD Unavailable [phone] Nawaf Morocho MD Unavailable Nawaf Morocho MD Unavailable Lottie Cedillo PA-C Unavailable Azeem Lindsey APRN EFFICIENCY MINER BLASTING Unavailable [phone] Encounter Details Date Type Department Care Team Description 09/27/2020 Travel Social History Tobacco Use Types Packs/Day [...] at Date Recorded Female 05/08/2020 12:57 PM GEODETIC SURVEYOR COVID-19 Exposure Response Date Recorded In the last month, have you been in contact with No / Unsure 09/27/2020 9:06 AM CDT someone who was confirmed or suspected to have Coronavirus / COVID-19? documented as of this encounter Plan of Treatment Upcoming Encounters Date Type Specialty Care Team Description 04/04/2022 Office Visit transverse abdominal muscle nurse Kaela Dubois APRN [facility] [address] [place], [place] [address] (Wo rk) 04/23/2022 Virtual Visit Endocrinology Lottie Cedillo PA-C [address] [place] [address] (Wo rk) documented as of this encounter Visit Diagnoses Not on filedocumented in this encounter Additional Health Concerns Assessment Noted Time PHQ-9 Depression Total Score: 0 04/06/2019 1:16 PM GEODETIC SURVEYOR documented as of this encounter Care Teams Client Support Analyst Relationship Specialty Start Date End Date Nelda Peña, PCP - General Nurse Practitioner 02/02/18 [facility] [address] [place] [facility] [address] [place] [address] Jose Lopez OD MD Optometry 03/04/18 Jillian Dubois Nurse Practitioner Nurse Practitioner 08/17/18 SHAW Infante EFFICIENCY MINER BLASTING [facility] [address] [place] [address] Nelda Peña, Assigned PCP 03/12/20 03/03/21 GEODETIC SURVEYOR EFFICIENCY MINER BLASTING 420 [facility] [address]41 [place], [place] [address] Seda Moy Assigned OBGYN Provider 01/21/20 01/27/21 MD Jai [address] [place] [address] Nawaf Morocho MD Dermatology 04/24/20 [facility] 516 [facility] 98 [place] [address] Nawaf Morocho, Assigned Surgical 04/30/20 Provider [facility] 516 [facility] 98 [place], [place] [address] Lottie Cedillo, Assigned Endocrinology 06/14/20 PA-C Provider [address] [place] [address] Azeem Lindsey, Assigned Behavioral 06/18/20 GEODETIC SURVEYOR [facility] Health Provider [address] [place] [address] documented as of this encounter
--- OUTSIDE RECORDS SUMMARY | 2022-02-19 14:26 | XMS_ITS | Encounter Summary ---
:1980 Author Organization [place] Address [address] [place] [address] Care Team Providers Name Role Phone Nelda Peña APRN RETAIL SALES ASSOCIATE Primary Care Provider [phone] Jose Lopez OD Unavailable Jillian Dubois APRN RETAIL SALES ASSOCIATE Unavailable [phone] Nelda Peña APRN RETAIL SALES ASSOCIATE Unavailable [phone] Seda Moy MD Unavailable [phone] Nawaf Morocho MD Unavailable Nawaf Morocho MD Unavailable Lottie Cedillo PA-C Unavailable Azeem Lindsey APRN RETAIL SALES ASSOCIATE Unavailable [phone] Encounter Details Date Type Department Care Team Description 10/19/2020 [facility] d [facility] ERROL Jones mellitus with [address] complications (H) [address] [place], [place] (Primary Dx) 3rd Floor [address] [place], [place] [phone] [address] (Work) [phone] Social History Tobacco Use Types Packs/Day Years [...] at Date Recorded Female 05/08/2020 12:57 PM CURRICULUM COORDINATOR COVID-19 Exposure Response Date Recorded In the last month, have you been in contact with No / Unsure 10/17/2020 2:06 PM CDT someone who was confirmed or suspected to have Coronavirus / COVID-19? documented as of this encounter Plan of Treatment Upcoming Encounters Date Type Specialty Care Team Description 04/04/2022 Office Visit automation qtp tester Kaela Dubois [facility]N [facility] [address] [place], [place] [address] (Wo rk) 04/23/2022 Virtual Visit Endocrinology Lottie Cedillo PA-C [address] [place] [id number] (Wo rk) documented as of this encounter Visit Diagnoses Diagnosis Type 1 diabetes mellitus with complicati ons (H) - Primary documented in this encounter Additional Health Concerns Assessment Noted Time PHQ-9 Depression Total Score: 0 04/06/2019 1:16 PM CURRICULUM COORDINATOR documented as of this encounter Care Teams Dial Printer Relationship Specialty Start Date End Date Nelda Peña, PCP - General Nurse Practitioner 02/02/18 BLOCK OPERATOR RETAIL SALES ASSOCIATE 420 [facility] 741 [place], [place] [address] Jose Lopez OD MD Optometry 03/04/18 Jillian Dubois Nurse Practitioner Nurse Practitioner 08/17/18 SHAW Infante [facility] [address] [place], [place] [address] Nelda Peña, Assigned PCP 03/12/20 03/03/21 BLOCK OPERATOR [facility] 420 [facility] 741 [place], [place] [address] Seda Moy Assigned OBGYN Provider 01/21/20 01/27/21 MD Jai [address] [facility] [address] [place] [address] Nawaf Morocho MD Dermatology 04/24/[address] [address] Nawaf Morocho, Assigned Surgical 04/30/[address] [address] Lottie Cedillo, Assigned Endocrinology 06/14/20 PA-C Provider [address] [place] [address] Azeem Lindsey, Assigned Behavioral 06/18/20 BLOCK OPERATOR [facility] Health Provider [address] [place], [place] [address] documented as of this encounter
--- OUTSIDE RECORDS SUMMARY | 2022-02-19 14:26 | XMS_ITS | Encounter Summary ---
:1980 Author Organization [place] Address [address] [place] [address] Care Team Providers Name Role Phone Nelda Peña MUSIC COMPOSITION TEACHER CONCERT PIANIST Primary Care Provider Jose Lopez OD Unavailable Jillian Dubois APRN CONCERT PIANIST Unavailable [phone] Nelda Peña APRN CONCERT PIANIST Unavailable [phone] Seda Moy MD Unavailable [phone] Nawaf Morocho MD Unavailable Nawaf Morocho MD Unavailable Lottie Cedillo PA-C Unavailable Azeem Lindsey APRN CONCERT PIANIST Unavailable [phone] Encounter Details Date Type Department Care Team Description 09/20/[address] [facility] Eye Kimo Joaquin table proliferative Clinic - Florian Valerio MD diabetic retinopathy of [address] [facility] [address] [facility] both eyes associated [address] [place], [place] with type 1 [place] [address] mellitus (H) - Both Eyes [address] (Primary Dx) Social History Tobacco Use Types Packs/Day Years [...] at Date Recorded Female 05/08/2020 12:57 PM FREELANCE DISPLAYER COVID-19 Exposure Response Date Recorded In the last month, have you been in contact with No / Unsure 09/11/2020 2:17 PM CDT someone who was confirmed or suspected to have Coronavirus / COVID-19? documented as of this encounter Plan of Treatment Upcoming Encounters Date Type Specialty Care Team Description 04/04/2022 Office Visit scene painter Kaela Dubois APRN [facility] [address] [place] [address] (Wo rk) 04/23/2022 Virtual Visit Endocrinology Lottie Cedillo PA-C [address] [place] [address] (Wo rk) Pending Results Name Type Priority Associated Diagnoses Date/Ti id OCT Retina Spectralis Opht Imaging Routine Stable proliferativ e 09/27/2020 9:44 AM OU (both eyes) diabetic retinopathy of CD T both eyes associated with type 1 diabetes mellitus (H) Fundus Photos OU Opht Imaging Routine Stable proliferative 9:44 AM (both eyes) diabetic retinopathy of CDT both eyes associated with type 1 diabetes mellitus (H) documented as of this encounter Visit Diagnoses Diagnosis Stable proliferative diabetic retinopath y of both eyes associated with type 1 diabetes mellitus (H) - Both Eyes - Prim vreenice documented in this encounter Additional Health Concerns Assessment Noted Time PHQ-9 Depression Total Score: 0 04/06/2019 1:16 PM FREELANCE DISPLAYER documented as of this encounter Care Teams Fence Setter Relationship Specialty Start Date End Date Nelda Peña, PCP - General Nurse Practitioner 02/02/18 MUSIC COMPOSITION TEACHER CONCERT PIANIST [address] [facility] [address] [place], [place] [address] Jose Lopez OD MD Optometry 03/04/18 Jillian Dubois Nurse Practitioner Nurse Practitioner 08/17/18 SHAW Infante [facility] [address] [place], [place] [address] Nelda Peña, Assigned PCP 03/12/20 03/03/21 MUSIC COMPOSITION TEACHER CONCERT PIANIST [address] [facility] [address] [place], [place] [address] Seda Moy Assigned OBGYN Provider 01/21/20 01/27/21 MD Jai [address] [place], [place] [address] Nawaf Morocho MD Dermatology 04/24/[address] [address] Nawaf Morocho, Assigned Surgical 04/30/[address] [id number] Lottie Cedillo, Assigned Endocrinology 06/14/20 PA-C Provider [address] [place] [address] Azeem Lindsey, Assigned Behavioral 06/18/20 [facility] Provider [address] [place] [address] documented as of this encounter
--- OUTSIDE RECORDS SUMMARY | 2022-02-19 14:26 | XMS_ITS | Encounter Summary ---
:1980 Author Organization [place] Address [address] [place] [address] Care Team Providers Name Role Phone Nelda Peña APRN REAL ESTATE MANAGEMENT SPECIALIST Primary Care Provider Jose Lopez OD Unavailable Jillian Dubois APRN REAL ESTATE MANAGEMENT SPECIALIST Unavailable [phone] Nelda Peña APRN REAL ESTATE MANAGEMENT SPECIALIST Unavailable [phone] Seda Moy MD Unavailable [phone] Nawaf Morocho MD Unavailable Nawaf Morocho MD Unavailable Lottie Cedillo PA-C Unavailable Azeem Lindsey APRN REAL ESTATE MANAGEMENT SPECIALIST Unavailable [phone] Reason for Visit Reason Comments Diabetic Eye Exam Stable proliferative diabeti c retinopathy of both eyes associated with type 1 diabetes mellitu s Encounter Details Date Type Department Care Team Description 09/11/2020 Office Visit [facility] Eye Munda[place], Rusdeep Sta ble proliferative diabetic retinopathy of both eyes associated with type 1 diabetes mellitus (H) - Both Eyes (Primary Dx); Clinic - Maximo Turner MD Nuclear sclerotic cataract of both eyes; Aris Marianoensteen [address] [place] Myopic astigmatism of both eyes; [facility] mmc 493 [address]by[address] [place], [place] Clin 9A [address] [place], [place] [phone] [address] (Work) [phone] Social History Tobacco Use Types Packs/Day Years [...] at Date Recorded Female 05/08/2020 12:57 PM MANAGER INTERMEDIATE COVID-19 Exposure Response Date Recorded In the last month, have you been in contact with No / Unsure 09/11/2020 2:17 PM CDT someone who was confirmed or suspected to have Coronavirus / COVID-19? documented as of this encounter Progress Notes Angel Regan MD - 09/11/2020 2:15 PM CDT HPI Tamiko Méndez is a 39 year old female with history of DM1 and stable PDR each eye presents for diabetic eye exam. Vision has stable over the past few years. No new flashes or floaters. No eye pain, redness, discharge. Last A1C 11.8 (11/2019). 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 No traction Plan: - Refer to Retina for VTD, FA each eye transit left eye, OCT Mac. Patient needing ativan if PRP, likely will need to schedule separate visit for PRP. (H25.13) Nuclear sclerotic cataract of both eyes Comment: Mild, not visually significant Plan: Observe (H52.203, H52.13) Myopic astigmatism of both eyes (H52.4) Presbyopia Comment: Good vision with refraction Plan: Given updated glasses Rx --- Patient disposition: Return for Refer to Retina for VTD, FA each eye transit left eye, OCT Mac. or sooner as needed. Angel Regan MD Ophthalmology PGY-3 [facility] Teaching statement: Complete documentation of historical and exam elements [...] management plan with the patient and family. Lesly Delgado MD Comprehensive Ophthalmology & Ocular Pathology Department of Ophthalmology and Visual Neurosciences [email or web address] Pager [phone] documented in this encounter Nursing Notes Juliet Bonilla - 09/11/2020 2:15 PM CDT Chief Complaints and History of Present Illnesses Patient presents with ??? Diabetic Eye Exam Stable proliferative diabetic retinopathy of both eyes associated with type 1 diabetes mellitus Chief Complaint(s) and History of Present Illness(es) Diabetic Eye Exam Associated symptoms: headaches. Negative for flashes and floaters Diabetes Type: Type 1 Pain scale: 0/10 Comments: Stable proliferative diabetic retinopathy of both eyes associated with type 1 diabetes mellitus Comments Pt states some trouble with near, states she gets headache LBS: 168 Last A1c:11.9 Lab Results Component Value Date A1C 11.9 12/07/2019 A1C 11.5 03/21/2018 A1C 11.9 08/29/2006 Juliet Bonilla COT 3:05 PM September 11, 2020 documented in this encounter Plan of Treatment Upcoming Encounters Date Type Specialty Care Team Description 04/04/2022 Office Visit radial arm saw operator Kaela Dubois, QUALITY MANAGER REAL ESTATE MANAGEMENT SPECIALIST [facility] [address] [place] [address] (Wo rk) 04/23/2022 Virtual Visit Endocrinology Lottie Cedillo , LUIS CARLOSC [address] [place], [place] [address] (Wo rk) documented as of this encounter Visit Diagnoses Diagnosis Stable proliferative diabetic retinopath y of both eyes associated with type 1 diabetes mellitus (H) - Both Eyes - Prim verenice Nuclear sclerotic cataract of both eyes Senile nuclear sclerosis Myopic astigmatism of both eyes Presbyopia documented in this encounter Additional Health Concerns Assessment Noted Time PHQ-9 Depression Total Score: 0 04/06/2019 1:16 PM MANAGER INTERMEDIATE documented as of this encounter Care Teams [email or web address] Software Engineer Relationship Specialty Start Date End Date Nelda Peña, PCP - General Nurse Practitioner 02/02/18 QUALITY MANAGER REAL ESTATE MANAGEMENT SPECIALIST [address] [place] [address] [facility] [address] [place], [place] [address] Jose Lopez OD MD Optometry 03/04/18 Jillian Dubois Nurse Practitioner Nurse Practitioner 08/17/18 SHAW Infante [facility] [address] [place], [place] [phone] Nelda Peña, Assigned PCP 03/12/20 03/03/21 QUALITY MANAGER REAL ESTATE MANAGEMENT SPECIALIST [address] [facility] [address] [place] [address] Seda Moy Assigned OBGYN Provider 01/21/20 01/27/21 MD Jai [address] [place] [address] Nawaf Morocho MD Dermatology 04/24/[address] [address] Nawaf Morocho, Assigned Surgical 04/30/[address] [address] Lottie Cedillo, Assigned Endocrinology 06/14/20 PA-C Provider [address] [place], [place] [address] Azeem Lindsey, Assigned Behavioral 06/18/20 QUALITY MANAGER [facility] Health Provider [address] [place], [place] [id number] documented as of this encounter
--- OUTSIDE RECORDS SUMMARY | 2022-02-19 14:26 | XMS_ITS | Encounter Summary ---
:1980 Author Organization [place] Address [address] [place] [address] Care Team Providers Name Role Phone Nelda Peña APRN [facility] Primary Care Provider [phone] Jose Lopez OD Unavailable Jillian Dubois APRN [facility] Unavailable [phone] Nelda Peña APRN [facility] Unavailable [phone] Seda Moy MD Unavailable [phone] Lisa Hughes MD Unavailable Nawaf Morocho MD Unavailable Nawaf Morocho MD Unavailable Encounter Details Date Type Department Care Team Description 05/24/2020 Travel Social History Tobacco Use Types Packs/Day [...] at Date Recorded Female 05/08/2020 12:57 PM RIVET TOSSER COVID-19 Exposure Response Date Recorded In the last month, have you been in contact with No / Unsure 05/24/2020 9:08 AM RIVET TOSSER someone who was confirmed or suspected to have Coronavirus / COVID-19? documented as of this encounter Plan of Treatment Upcoming Encounters Date Type Specialty Care Team Description 04/04/2022 Office Visit hydrologic modeler Kaela Dubois APRN [facility] [address] [place] [address] (Wo rk) 04/23/2022 Virtual Visit Endocrinology Lottie Cedillo PA-C [address] [place] [address] (Wo rk) documented as of this encounter Visit Diagnoses Not on filedocumented in this encounter Additional Health Concerns Assessment Noted Time PHQ-9 Depression Total Score: 0 04/06/2019 1:16 PM RIVET TOSSER documented as of this encounter Care Teams Manager Air Relationship Specialty Start Date End Date Nelda Peña, PCP - General Nurse Practitioner 02/02/18 SHAW DIAZ [address] [place] [address] [facility] [address] [place], [place] [address] Jose Lopez OD MD Optometry 03/04/18 Jillian Dubois Nurse Practitioner Nurse Practitioner 08/17/18 SHAW Infante [facility] [address] [place] [address] Nelda Peña, Assigned PCP 03/12/20 03/03/21 MELTER SUPERVISOR DIRECTOR OF EDUCATION 420 [facility] [address] [place] [address] Seda Moy Assigned OBGYN Provider 01/21/20 01/27/21 MD Jai [address] [place] [address] Lisa Hughes, Assigned Endocrinology 01/21/20 06/13/20 Provider [address] [place] [address] Nawaf Morocho MD Dermatology 04/24/[address] [address] Nawaf Morocho, Assigned Surgical 04/30/[address] [address] documented as of this encounter
--- OUTSIDE RECORDS SUMMARY | 2022-02-19 14:27 | XMS_ITS | Encounter Summary ---
:1980 Author Organization [place] Address [address] [place] [address] Care Team Providers Name Role Phone Nelda Peña APRN AUDIO VISUAL ENGINEER Primary Care Provider [phone] Jose Lopez OD Unavailable Jillian Dubois APRN AUDIO VISUAL ENGINEER Unavailable [phone] Seda Moy MD Unavailable [phone] Lisa Hguhes MD Unavailable Jay Salas MD Unavailable Jay Salas MD Unavailable Nelda Peña APRN AUDIO VISUAL ENGINEER Unavailable [phone] Reason for Visit Reason Onset Date Comments Call Back 03/06/2020 tested positive for covid this morning Encounter Details Date Type Department Care Team Description [facility] End[facility] PA-Robert positive for covid [address] this morning ) [address] [place], [place] 3rd Floor [address] [place], [place] [phone] [address] (Work) [phone] Social History Tobacco Use Types Packs/Day Years [...] at Date Recorded Female 05/08/2020 12:57 PM RAILROAD SHOP INSPECTOR COVID-19 Exposure Response Date Recorded In the last month, have you been in contact with No / Unsure 02/29/2020 1:32 PM RAILROAD SHOP INSPECTOR someone who was confirmed or suspected to have Coronavirus / COVID-19? documented as of this encounter Miscellaneous Notes Telephone Encounter - Coby Warren - 03/06/2020 11:52 AM [facility] Phone Message May a detailed message be left on voicemail: yes Reason for Call: Pt requesting a call back from Lottie Cedillo because she tested positive for covid this morning. Pt has type 1 diabetes needs advice. Action Taken: Message routed [facility] endo Travel Screening: Not Applicable Reached Tamiko at home. BG higher over weekend but 114, 160 today and feeling better, no fever, cough improved. Care measures and precautions reviewed. Will contact office with data for urgent appointment if having increased blood sugars. It is my privilege to be involved in the care of the above patient. Lottie Cedillo PA-C, MPAS [facility] Diabetes, Endocrinology, and Metabolism [phone] Appointments/Nurse [phone] pager [phone] SHOP INSPECTOR documented in this encounter Plan of Treatment Upcoming Encounters Date Type Specialty Care Team Description 04/04/2022 Office Visit hoisting engine operator Kaela Dubois APRN [facility] [address] [place] [address] (Wo rk) 04/23/2022 Virtual Visit Endocrinology Lottie Cedillo PA-C [address] [place] [address] (Wo rk) documented as of this encounter Visit Diagnoses Not on filedocumented in this encounter Additional Health Concerns Assessment Noted Time PHQ-9 Depression Total Score: 0 04/06/2019 1:16 PM RAILROAD SHOP INSPECTOR documented as of this encounter Care Teams Custom Decorating Consultant Relationship Specialty Start Date End Date Nelda Peña, PCP - General Nurse Practitioner 02/02/18 ELECTRICAL CONTINUITY TESTER [facility] [address] [place] [address] [facility] [address] [place], [place] [id number] Jose Lopez OD MD Optometry 03/04/18 Jillian Dubois Nurse Practitioner Nurse Practitioner 08/17/18 SHAW Infante [facility] [address] [place] [address] Seda Moy Assigned OBGYN Provider 01/21/20 01/27/21 MD Jai [address] [place] [address] Lisa Hughes, Assigned Endocrinology 01/21/20 06/13/20 MD Provider [address] [place] [address] Jay Salas MD Assigned Pediatric 01/21/20 04/30/20 909 [facility] [place] [address] Jay Salas MD Assigned Surgical 01/21/20 04/29/20 [address] [place], [place] [phone] Nelda Peña, Assigned PCP 08/19/19 03/11/20 ELECTRICAL CONTINUITY TESTER AUDIO VISUAL ENGINEER 420 [facility] [address]41 [place], [place] [address] documented as of this encounter
--- OUTSIDE RECORDS SUMMARY | 2022-02-19 14:27 | XMS_ITS | Encounter Summary ---
:1980 Author Organization [place] Address [facility] [place] [address] Care Team Providers Name Role Phone Nelda Peña APRN [facility] Primary Care Provider [phone] Jose Lopez OD Unavailable Jillian Dubois APRN [facility] Unavailable [phone] Nelda Peña APRN [facility] Unavailable [phone] Seda Moy MD Unavailable [phone] Lisa Hughes MD Unavailable Jay Salas MD Unavailable Jay Salas MD Unavailable Nawaf Morocho MD Unavailable Encounter Details Date Type Department Care Team Description 04/27/2020 Travel Social History Tobacco Use Types Packs/Day [...] at Date Recorded Female 05/08/2020 12:57 PM ANIMAL EVISCERATOR COVID-19 Exposure Response Date Recorded In the last month, have you been in contact with No / Unsure 04/27/2020 11:06 AM ANIMAL EVISCERATOR someone who was confirmed or suspected to have Coronavirus / COVID-19? documented as of this encounter Plan of Treatment Upcoming Encounters Date Type Specialty Care Team Description 04/04/2022 Office Visit firewall engineer Kaela Dubois APRN CNP [facility] [address] [place] [address] (Wo rk) 04/23/2022 Virtual Visit Endocrinology Lottie Cedillo PA-C [address] [place] [address] (Wo rk) documented as of this encounter Visit Diagnoses Not on filedocumented in this encounter Additional Health Concerns Assessment Noted Time PHQ-9 Depression Total Score: 0 04/06/2019 1:16 PM ANIMAL EVISCERATOR documented as of this encounter Care Teams Car Installations Supervisor Relationship Specialty Start Date End Date Nelda Peña, PCP - General Nurse Practitioner 02/02/18 SHAW DIAZ 420 [facility] 741 [place], [place] [address] Jose Lopez OD MD Optometry 03/04/18 Jillian Dubois Nurse Practitioner Nurse Practitioner 08/17/18 SHAW Infante CNP [facility] [address] [place] [address] [place] [phone] eNlda Peña, Assigned PCP 03/12/20 03/03/21 LIBRARY SERVICES ASSISTANT WARNING ANALYST [address] [facility] [address]41 [place], [place] [address] Seda Moy Assigned OBGYN Provider 01/21/20 01/27/21 MD Jai [address] [place] [address] Lisa Hughes, Assigned Endocrinology 01/21/20 06/13/20 MD Provider [address] [place] [address] Jay Salas MD Assigned Pediatric 01/21/20 04/30/20 909 [facility] Specialist Provider [place], [place] [phone] Jay Salas MD Assigned Surgical 01/21/20 04/29/20 [address] [place] [address] Nawaf Morocho MD Dermatology 04/24/20 [facility] [address] [facility] 98 [place], [place] [address] documented as of this encounter
--- OUTSIDE RECORDS SUMMARY | 2022-02-19 14:27 | XMS_ITS | Encounter Summary ---
:1980 Author Organization [place] Address [facility] [place] [address] Care Team Providers Name Role Phone Nelda Peña APRN CORONARY CLINICAL SPECIALIST Primary Care Provider [phone] Jose Lopez OD Unavailable Jillian Dubois APRN CORONARY CLINICAL SPECIALIST Unavailable [phone] Seda Moy MD Unavailable [phone] Lisa Hughes MD Unavailable Jay Salas MD Unavailable Jay Salas MD Unavailable Nelda Peña APRN CORONARY CLINICAL SPECIALIST Unavailable [phone] Encounter Details Date Type Department Care Team Description 03/06/2020 Travel Social History Tobacco Use Types Packs/Day [...] at Date Recorded Female 05/08/2020 12:57 PM LAYDOWN MACHINE OPERATOR COVID-19 Exposure Response Date Recorded In the last month, have you been in contact with No / Unsure 02/29/2020 1:32 PM LAYDOWN MACHINE OPERATOR someone who was confirmed or suspected to have Coronavirus / COVID-19? documented as of this encounter Plan of Treatment Upcoming Encounters Date Type Specialty Care Team Description 04/04/2022 Office Visit maintenance and engineering manager Kaela Dubois APRN [facility] [address] [place] [address] (Wo rk) 04/23/2022 Virtual Visit Endocrinology Lottie Cedillo PA-C [address] [place] [address] (Wo rk) documented as of this encounter Visit Diagnoses Not on filedocumented in this encounter Additional Health Concerns Assessment Noted Time PHQ-9 Depression Total Score: 0 04/06/2019 1:16 PM LAYDOWN MACHINE OPERATOR documented as of this encounter Care Teams Welfare Project Manager Relationship Specialty Start Date End Date Nelda Peña, PCP - General Nurse Practitioner 02/02/18 [facility] [address] [place] [address] [facility] [address] [place], [place] [address] Jose Lopez OD MD Optometry 03/04/18 Jillian Dubois Nurse Practitioner Nurse Practitioner 08/17/18 [facility]AW [facility] [address] [place] [address] Seda Moy Assigned OBGYN Provider 01/21/20 01/27/21 MD Jai [address] [place] [address] Lisa Hughes, Assigned Endocrinology 01/21/20 06/13/20 MD Provider [address] [place] [address] Jay Salas MD Assigned Pediatric 01/21/20 04/30/20 [address] [place] [address] Jay Salas MD Assigned Surgical 01/21/20 04/29/20 9 [place] [address] Nelda Peña, Assigned PCP 08/19/19 03/11/20 [facility]ON[facility] CLINICAL SPECIALIST [address] [place] [address] [facility] [address] [place] [address] documented as of this encounter
--- OUTSIDE RECORDS SUMMARY | 2022-02-19 14:27 | XMS_ITS | Encounter Summary ---
:1980 Author Organization [place] Address [address] [facility] [place] [address] Care Team Providers Name Role Phone Nelda Peña APRN LITHOGRAPHER APPRENTICE Primary Care Provider Jose Lopez OD Unavailable Jillian Dubois APRN LITHOGRAPHER APPRENTICE Unavailable [phone] Nelda Peña APRN LITHOGRAPHER APPRENTICE Unavailable [phone] Reason for Visit Reason Onset Date Comments Diabetes Education 01/18/2020 Encounter Details Date Type Department Care Team Description 01/18/2020 Telephone [facility] Stephany Roca campus chaplain Education Diabetes Education [address] [address] [facility]. 3rd Floor [place], [place] [address] [phone] Social History Tobacco Use Types Packs/Day Years [...] at Date Recorded Female 05/08/2020 12:57 PM LOG SNAKER documented as of this encounter Miscellaneous Notes Telephone Encounter - Stephany Roca RN - 01/18/2020 10:39 AM CDT Left message with Tamiko to call regarding her [place]. Stephany Roca RN,CDE documented in this encounter Plan of Treatment Upcoming Encounters Date Type Specialty Care Team Description 04/04/2022 Office Visit insurance consultant Kaela Dubois APRN [facility] [address] [place] [address] (Wo rk) 04/23/2022 Virtual Visit Endocrinology Lottie Cedillo PA-C [address] [place], [place] [address] (Wo rk) documented as of this encounter Visit Diagnoses Not on filedocumented in this encounter Additional Health Concerns Assessment Noted Time PHQ-9 Depression Total Score: 0 04/06/2019 1:16 PM LOG SNAKER documented as of this encounter Care Teams Inspector Water Pollution Control Relationship Specialty Start Date End Date Nelda Peña APRN PCP - General Nurse Practitioner 02/02/18 [facility] 420 [facility] 741 [place] [address] Jose Lopez OD MD Optometry 03/04/18 Jillian Dubois, Nurse Practitioner Nurse Practitioner 07/30 SPORTS EQUIPMENT SUPERVISOR [facility] [address] [place] [address] Nelda Peña, SPORTS EQUIPMENT SUPERVISOR Assigned PCP 08/19/1903/19 LITHOGRAPHER APPRENTICE [address] [place] [address] [address] [place] [address] documented as of this encounter
--- OUTSIDE RECORDS SUMMARY | 2022-02-19 14:27 | XMS_ITS | Encounter Summary ---
:1980 Author Organization [place] Address [facility] [place] [address] Care Team Providers Name Role Phone Nelda Peña REVENUE INVESTIGATOR LABORATORY SPECIALIST Primary Care Provider [phone] Jose Lopez OD Unavailable Jillian Dubois APRN LABORATORY SPECIALIST Unavailable [phone] Seda Moy MD Unavailable [phone] Lisa Hughes MD Unavailable Jay Salas MD Unavailable Jay Salas MD Unavailable Nelda Peña APRN LABORATORY SPECIALIST Unavailable [phone] Reason for Visit Reason Onset Date Comments Mental Health Problem 01/26/2020 Psychiatry Phone S creen Encounter Details Date Type Department Care Team Description 01/26/2020 Telephone [facility] Mental None Men janine Health Problem Health & Addiction (Psychiat ry Phone Screen) [id number] [place], [place] [phone] Social History Tobacco Use Types Packs/Day Years [...] at Date Recorded Female 05/08/2020 12:57 PM TEACHING SUPERVISOR documented as of this encounter Miscellaneous Notes Telephone Encounter - Danuta Omer - 01/26/2020 10:58 AM CDT PSYCHIATRY CLINIC PHONE INTAKE SERVICES REQUESTED / INTERESTED IN Med Management Presenting Problem and Brief History What would you like to be seen for? (brief description): Pt was diagnosed with depression 20 years, and high anxiety about 3 years ago. She takes 40mg of citalopram and occassionally ativan as needed, but hasn't taken it in over a year. No issues with sleep. Pt's PCP is prescribing meds, and wanted topt to start working with a psychiatrist for on-going care. Have you received a mental health diagnosis? Yes Which one (s): Major Depression and High Anxiety, maybe PMDD Is there any history of developmental delay? No Are you currently seeing a mental health provider? No Who / month last seen: NA Do you have mental health records elsewhere? No Will you sign a release so we can obtain them? No Have you ever been hospitalized for psychiatric reasons? No Describe: NA Do you have current thoughts of self-harm? No Do you currently have thoughts of harming others? No Substance Use History Do you have any history of alcohol / illicit drug use? No Describe: NA Have you ever received treatment for this? No Describe: NA Social History Who is the patient's a guardian? [place] / number: NA Have you had an ACT team in last 12 months? No Describe: NA Do you have any current or past legal issues? No Describe: NA OK to leave a detailed voicemail? Yes Medical/ Surgical History Patient Active Problem List Diagnosis ??? 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) Medications Current Outpatient Medications Medication Sig Dispense [...] 1 tablet (40 mg) by mouth daily Call clinic to schedule follow up appointment. 30 tablet 0 ??? citalopram (CELEXA) 40 MG tablet Take 1 tablet (40 mg) by mouth daily 30 tablet 0 ??? Continuous Blood Gluc Special Officer Automat (FREESTYLE LEATHA 14 DAY READER) MARY 1 Application 5 times daily 1 Device 1 ??? Continuous Blood Gluc Sensor (FREESTYLE LEATHA 14 DAY SENSOR) MISC Change every 14 days. 2 each 11 ??? Continuous Blood Gluc Sensor (FREESTYLE LEATHA 14 DAY SENSOR) MISC 1 Application 4 times daily 2 each 3 ??? Digestive Enzymes (PAPAYA AND ENZYMES PO) ??? Injection Device for insulin (INPEN [id number]) MARY 2 each 4 times daily (before meals and nightly) 2 each 0 ??? Injection Device for insulin (INPEN [id number]) MARY 1 each 4 times daily (before [...] meals and nightly) 90 each 3 ??? levonorgestrel (MIRENA) 20 MCG/24HR IUD 1 each (20 mcg) by Intrauterine route continuous ??? LORazepam (ATIVAN) 0.5 MG tablet Take 0.5 mg by mouth 2 times daily as needed ??? multivitamin w/minerals (MULTI-VITAMIN) tablet Take 1 tablet by mouth daily ??? norethindrone (AYGESTIN) 5 MG tablet Take 1 tablet (5 mg) by mouth daily 90 tablet 3 ??? norethindrone (MICRONOR) 0.35 MG tablet Take 1 tablet (0.35 mg) by mouth daily 84 tablet 3 ??? OMEPRAZOLE PO ??? spironolactone (ALDACTONE) 100 MG tablet Take 1 tablet (100 mg) by mouth daily 90 tablet 1 ??? tretinoin (RETIN-A) 0.025 % external cream Apply topically At Bedtime Pea- sized amount to the whole face. Start every other night and increase frequency over a period of weeks 45 g 3 DISPOSITION 01/26/20 Intake complete. Prefers WILD LIFE PHOTOGRAPHER. Adding WL. Danuta Omer, classroom coordinator documented in this encounter Plan of Treatment Upcoming Encounters Date Type Specialty Care Team Description 04/04/2022 Office Visit marketing operations specialist Kaela Dubois, SHAW LABORATORY SPECIALIST [facility] [address] [place], [place] [address] (Wo rk) 04/23/2022 Virtual Visit Endocrinology Lottie Cedillo , PAFacundoC [address] [place], [place] [address] (Wo rk) documented as of this encounter Visit Diagnoses Not on filedocumented in this encounter Additional Health Concerns Assessment Noted Time PHQ-9 Depression Total Score: 0 04/06/2019 1:16 PM TEACHING SUPERVISOR documented as of this encounter Care Teams Bean Viner Relationship Specialty Start Date End Date Nelda Peña, PCP - General Nurse Practitioner 02/02/18 REVENUE INVESTIGATOR LABORATORY SPECIALIST [address] [facility] 741 [place], [place] [address] Jose Lopez OD MD Optometry 03/04/18 Jillian Dubios Nurse Practitioner Nurse Practitioner 08/17/18 SHAW Infante LABORATORY SPECIALIST [facility] [address] [place], [place] [address] Seda Moy Assigned OBGYN Provider 01/21/20 01/27/21 MD Jai [address] [place], [place] [address] Lisa Hughes, Assigned Endocrinology 01/21/20 06/13/20 MD Provider [address] [place] [address] Jay Salas MD Assigned Pediatric 01/21/20 04/30/20 9 [facility] [place] [place] [address] Jay Salas MD Assigned Surgical 01/21/20 04/29/20 9 [place] [address] Nelda Peña, Assigned PCP 08/19/19 03/11/20 REVENUE INVESTIGATOR LABORATORY SPECIALIST [address] [facility] [address] [place] [address] documented as of this encounter
--- OUTSIDE RECORDS SUMMARY | 2022-02-19 14:27 | XMS_ITS | Encounter Summary ---
:1980 Author Organization [place] Address [facility] [place] [address] Care Team Providers Name Role Phone Nelda Peña APRN RAIL FLAW DETECTOR OPERATOR Primary Care Provider [phone] Jose Lopez OD Unavailable Jillian Dubois APRN RAIL FLAW DETECTOR OPERATOR Unavailable Seda Moy MD Unavailable Lisa Hughes MD Unavailable Jay Salas MD Unavailable Jay Salas MD Unavailable Nelda Peña APRN RAIL FLAW DETECTOR OPERATOR Unavailable [phone] Encounter Details Date Type Department Care Team Description 02/29/2020 Travel Social History Tobacco Use Types Packs/Day [...] at Date Recorded Female 05/08/2020 12:57 PM SPOTLIGHT OPERATOR COVID-19 Exposure Response Date Recorded In the last month, have you been in contact with No / Unsure 02/29/2020 1:32 PM SPOTLIGHT OPERATOR someone who was confirmed or suspected to have Coronavirus / COVID-19? documented as of this encounter Plan of Treatment Upcoming Encounters Date Type Specialty Care Team Description 04/04/2022 Office Visit extension course coordinator Kaela Dubois APRN [facility] SP [facility] [address] [place] [address] (Wo rk) 04/23/2022 Virtual Visit Endocrinology Lottie Cedillo PA-C [address] [place] [address] (Wo rk) documented as of this encounter Visit Diagnoses Not on filedocumented in this encounter Additional Health Concerns Assessment Noted Time PHQ-9 Depression Total Score: 0 04/06/2019 1:16 PM SPOTLIGHT OPERATOR documented as of this encounter Care Teams Harnessmaker Apprentice Relationship Specialty Start Date End Date Nelda Peña, PCP - General Nurse Practitioner 02/02/18 SHAW [facility] [address] [facility] [address] [place], [place] [address] Jose Lopez OD MD Optometry 03/04/18 Jillian Dubois Nurse Practitioner Nurse Practitioner 08/17/18 SHAW Infante [facility] [address] [place] [address] Seda Moy Assigned OBGYN Provider 01/21/20 01/27/21 MD Jai [address] [place] [address] Lisa Hughes, Assigned Endocrinology 01/21/20 06/13/20 MD Provider [address] [place] [address] Jay Salas MD Assigned Pediatric 01/21/20 04/30/20 [address] [place] [address] Jay Salas MD Assigned Surgical 01/21/20 04/29/20 9 [place] [address] Nelda Peña, Assigned PCP 08/19/19 03/11/20 PANTOGRAPH MACHINE OPERATOR RAIL FLAW DETECTOR OPERATOR [address] [facility] [address] [place] [address] documented as of this encounter
--- OUTSIDE RECORDS SUMMARY | 2022-02-19 14:27 | XMS_ITS | Encounter Summary ---
:1980 Author Organization [place] Address [facility] [place] [address] Care Team Providers Name Role Phone Nelda ePña APRN SIGNAL INSPECTOR Primary Care Provider Jose Lopez OD Unavailable Jillian Dubois APRN [facility] Unavailable [phone] Nelda Peña APRN SIGNAL INSPECTOR Unavailable [phone] Seda Moy MD Unavailable [phone] Lisa Hughes MD Unavailable Jay Salas MD Unavailable Jay Salas MD Unavailable Nawaf Morocho MD Unavailable Encounter Details Date Type Department Care Team Description 04/24/2020 Travel Social History Tobacco Use Types Packs/Day [...] at Date Recorded Female 05/08/2020 12:57 PM NEEDLE CONTROL CHENILLER COVID-19 Exposure Response Date Recorded In the last month, have you been in contact with Yes 04/24/2020 9:49 AM NEEDLE CONTROL CHENILLER someone who was confirmed or suspected to have Coronavirus / COVID-19? documented as of this encounter Plan of Treatment Upcoming Encounters Date Type Specialty Care Team Description 04/04/2022 Office Visit passport support associate Kaela Dubois APRN CNP [facility] SP [facility] [address] [place] [address] (Wo rk) 04/23/2022 Virtual Visit Endocrinology Lottie Cedillo PA-C [address] [place] [address] (Wo rk) documented as of this encounter Visit Diagnoses Not on filedocumented in this encounter Additional Health Concerns Assessment Noted Time PHQ-9 Depression Total Score: 0 04/06/2019 1:16 PM NEEDLE CONTROL CHENILLER documented as of this encounter Care Teams Enterprise Records Analyst Relationship Specialty Start Date End Date Nelda Peña, PCP - General Nurse Practitioner 02/02/18 SHAW DIAZ [address] [facility] [address] [place], [place] [address] Jose Lopez OD MD Optometry 03/04/18 Jillian Dubois Nurse Practitioner Nurse Practitioner 08/17/18 SHAW Infante CNP [facility] [address] [place] [id number] Nelda Peña, Assigned PCP 03/12/20 03/03/21 PLASTIC SURGEON SIGNAL INSPECTOR [address] [facility] [address] [place], [place] [address] Seda Moy Assigned OBGYN Provider 01/21/20 01/27/21 MD Jai [address] [place], [place] [phone] Lisa Hughes, Assigned Endocrinology 01/21/20 06/13/20 MD Provider [address] [place], [place] [id number] Jay Salas MD Assigned Pediatric 01/21/20 04/30/20 909 [facility] Specialist Provider [place], [place] [id number] Jay Salas MD Assigned Surgical 01/21/20 04/29/20 909 [place], [place] [phone] Nawaf Morocho MD Dermatology 04/24/20 [facility] 516 [facility] 98 [place], [place] [phone] documented as of this encounter
--- OUTSIDE RECORDS SUMMARY | 2022-02-19 14:27 | XMS_ITS | Encounter Summary ---
:1980 Author Organization [place] Address [facility] [place] [address] Care Team Providers Name Role Phone Nelda Peña APRN SPECIAL POPULATION PARAPROFESSIONAL Primary Care Provider [phone] Jose Lopez OD Unavailable Jillian Dubois APRN SPECIAL POPULATION PARAPROFESSIONAL Unavailable [phone] Nelda Peña APRN SPECIAL POPULATION PARAPROFESSIONAL Unavailable [phone] Seda Moy MD Unavailable [phone] Lisa Hughes MD Unavailable Jay Salas MD Unavailable Jay Salas MD Unavailable Reason for Visit Reason Comments Derm Problem Acne follow up med refill Encounter Details Date Type Department Care Team Description 03/28/2020 Virtual Visit [facility] Nawaf Lucero, Acne vulgaris Dermatology Clinic [facility] [address] [place] [address] 3rd Floor [address] [place], [place] [address] [phone] Social History Tobacco Use Types Packs/Day Years [...] at Date Recorded Female 05/08/2020 12:57 PM BINDING END STITCHER COVID-19 Exposure Response Date Recorded In the last month, have you been in contact with No / Unsure 02/29/2020 1:32 PM BINDING END STITCHER someone who was confirmed or suspected to have Coronavirus / COVID-19? documented as of this encounter Patient Instructions Patient InstructionsElsi Ashford MD - 03/28/2020 4:45 PM CST [facility] Dermatology Visit Thank you for allowing us to participate in your care. Your findings, instructions and follow-up plan are as follows: Acne When should I call my doctor? If you are worsening or not improving, please, contact us or seek urgent care as noted below. Who should I call with questions (adults)? [facility] (adult and pediatric): [phone] ??? [facility] (adult): [phone] ??? For urgent needs outside of business hours call the [facility] at [phone] and ask for the dermatology resident race relations professor ??? If this is a medical emergency and you are unable to reach an ER, Call 911 Who should I call with questions (pediatric)? [facility]- Pediatric Dermatology Dr. Carmel Donaldson, Dr. Enid Mancini, Dr. Elizabeth Johnson, INO [address] Dr[address] Dr. Cristin Munoz & Dr. Jay Denton Non Urgent Nurse Triage Line; [phone]- Christy and Farheen WILLIAM Care Coordinatoryina Dubois (Peg Driver/Complex Benefit Authorizer) [phone] If you need a prescription refill, please contact your pharmacy. Refills are approved or denied by our Physicians during normal business hours, Friday through Fridays Per office policy, refills will not be granted if you have not been seen within the past year (or sooner depending on your child's condition) Scheduling Information: Pediatric Appointment Scheduling and Call Center Radiology Scheduling- [phone] Sedation Unit Scheduling- [phone] [place] Scheduling- General [phone]; Pediatric Dermatology [phone] Main Nursing Project Coordinator Services: [phone] Khmer: [phone] Cayman Islander: [phone] Hmong/Ulysses/Rubio: [phone] Preadmission Nursing Department (Fax all pre-operative paperwork to this number) For urgent matters arising during evenings, weekends, or holidays that cannot wait for normal business hours please call and ask for the Dermatology Resident On-Call to be paged. ING END STITCHER documented in this encounter Progress Notes Cassy Ramirez CMA - 03/28/2020 4:45 PM CST [facility] Dermatology Record: Store and Forward and Video ( Invitation sent by: [employer] waiting room ) Dermatology Problem List: 1.??Acne vulgaris??and folliculitis -Current tx: spironolactone 100 mg daily -Previous tx: clindamycin 1% solution BID prn, tretinoin 0.025% cream 2. Hand dermatitis -betamethasone 0.05% ointment??BID under occlusion 3. Irritant dermatitis, alar creases/nasolabial folds - likely secondary to retinoids -hydrocortisone 2.5% cream BID x 1-2 weeks until improved Encounter Date: Mar 28, 2020 CC: Chief Complaint Patient presents with ??? Derm Problem Acne follow up med refill History of Present Illness: Tamiko Méndez is a 39 year old female who presents for acne. She is doing extremely well with her acne treatment today with very few new lesions. Taking spironolactone without any side effects. Currently sexually active and on control. She finds topical treatments used previously to be too irritating to her skin and prefers to avoid them for now. She expresses some interest in potentially treating her acne scars down the road as well as a few irritated skin tags. Health otherwise stable. No other skin concerns. ROS: Patient is generally feeling well today Physical Examination: General: Well-appearing female, appropriately-developed individual. Skin: Exam was performed by photo review and is significant for the following: - On the face, there are rare closed comedones and some scarring on both cheeks, but otherwise skin appears clear Past Medical History: Patient Active Problem List Diagnosis ??? 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 Abnormal uterine bleeding (AUB) Past Medical History: Diagnosis Date ??? Acne [...] LASER SURGERY OF EYE Left diabetic retinopathy Social History: Patient reports that she has never smoked. She has never used smokeless tobacco. She reports currentalcohol use. Family History: Family History Problem Relation Age of Onset [...] ??? Macular Degeneration No family hx of Medications: Current Outpatient Medications Medication ??? augmented betamethasone dipropionate (DIPROLENE-AF) 0.05 % external cream ??? Calcium Carb-Cholecalciferol (CALCIUM 500+D PO) ??? cetirizine (ZYRTEC) 10 MG tablet ??? citalopram (CELEXA) 40 MG tablet ??? Continuous Blood Gluc Solutions Executive Security (FREESTYLE LEATHA 14 DAY READER) MARY ??? Continuous Blood Gluc Sensor (FREESTYLE LEATHA 14 DAY SENSOR) MISC ??? Continuous Blood Gluc Sensor (FREESTYLE LEATHA 14 DAY SENSOR) MISC ??? Digestive Enzymes (PAPAYA AND ENZYMES PO) ??? Injection Device for insulin (INPEN [id number]) MARY ??? Injection Device for insulin (INPEN [id number]) MARY ??? insulin aspart (NOVOLOG VIAL) 100 UNITS/ML vial ??? insulin glargine (LANTUS PEN) 100 UNIT/ML pen ??? insulin lispro (HUMALOG PENFILL) 100 UNIT/ML Cartridge ??? insulin syringe 31G X 5/16 0.5 ML MISC ??? LORazepam (ATIVAN) 0.5 MG tablet ??? multivitamin w/minerals (MULTI-VITAMIN) tablet ??? norethindrone (AYGESTIN) 5 MG tablet ??? OMEPRAZOLE PO ??? spironolactone (ALDACTONE) 100 MG tablet ??? tretinoin (RETIN-A) 0.025 % external cream ??? norethindrone (MICRONOR) 0.35 MG tablet No current facility-administered medications for this visit. Allergies Allergen Reactions ? ? Hay Fever & [A.R.M.] Stuffiness, watery eyes ??? No Clinical Screening - See Comments Unknown Impression and Recommendations (Patient Counseled on the Following): 1. Acne vulgaris, inflammatory and comedonal - etiology and treatments reviewed - continue spironolactone 100mg every day - morning: moisturizer, SPF 30+ Follow-up: Follow-up with dermatology in approximately 3 months for possible removal of irritated sin tags. Earlier for new or changing lesions or rash. Staff and resident Makeda (PGY2)Rashawn Staff Physician Comments: I saw and evaluated the patient with the resident and I agree with the assessment and plan. I was present for the entire telephone visit. Nawaf Morocho MD Pronouns: he/him/his Pediatric Hospitalist Department of Dermatology [facility] Clinics: , [facility] Center: Teledermatology information: - Location of teledermatologist: [facility] ) - Image quality and interpretability: acceptable - Date of images: 03/28/20 - Service start time:4:45 PM - Service end time: 5:00 PM - Date of report: 03/28/2020 ING END STITCHER documented in this encounter Nursing Notes Cassy Ramirez CMA - 03/28/2020 4:45 PM CST Chief Complaint Patient presents with ??? Derm Problem Acne follow up med refill Cassy Webster CMA ING END STITCHER documented in this encounter Plan of Treatment Upcoming Encounters Date Type Specialty Care Team Description 04/04/2022 Office Visit power technician Kaela Dubois APRN [facility] [address] [place] [address] (Wo rk) 04/23/2022 Virtual Visit Endocrinology Lottie Cedillo PA-C [address] [place] [address] (Wo rk) documented as of this encounter Visit Diagnoses Diagnosis Acne vulgaris Other acne documented in this encounter Additional Health Concerns Assessment Noted Time PHQ-9 Depression Total Score: 0 04/06/2019 1:16 PM BINDING END STITCHER documented as of this encounter Care Teams Psychiatric Therapist Relationship Specialty Start Date End Date Nelda Peña, PCP - General Nurse Practitioner 02/02/18 [place] ROOM ATTENDANT SPECIAL POPULATION PARAPROFESSIONAL [address] [facility] [address] [place], [place] [address] Jose Lopez OD MD Optometry 03/04/18 Jillian Dubois Nurse Practitioner Nurse Practitioner 08/17/18 SHAW Infante SPECIAL POPULATION PARAPROFESSIONAL [facility] [address] [place], [place] [address] Nelda Peña, Assigned PCP 03/12/20 03/03/21 [place] ROOM ATTENDANT SPECIAL POPULATION PARAPROFESSIONAL 420 [facility] [address]41 [place], [place] [address] Seda Moy Assigned OBGYN Provider 01/21/20 01/27/21 MD Jai [address] [place], [place] [address] Lisa Hughes, Assigned Endocrinology 01/21/20 06/13/[address] [place] [id number] Jay Salas MD Assigned Pediatric 01/21/20 04/30/[address] [place] [address] Specialist Provider [place], [place] [address] Jay Salas MD Assigned Surgical 01/21/20 04/29/[address] [place] [address] documented as of this encounter
--- OUTSIDE RECORDS SUMMARY | 2022-02-19 14:27 | XMS_ITS | Encounter Summary ---
:1980 Author Organization [facility] Address [address] [place] [address] Care Team Providers Name Role Phone Nelda Peña APRN CARDIOPULMONARY TECHNICIAN Primary Care Provider [phone] Jose Lopez OD Unavailable Jillian Dubois APRN CARDIOPULMONARY TECHNICIAN Unavailable [phone] Nelda Peña APRN CARDIOPULMONARY TECHNICIAN Unavailable [phone] Seda Moy MD Unavailable [phone] Lisa Hughes MD Unavailable Nawaf Morocho MD Unavailable Nawaf Morocho MD Unavailable Reason for Visit Reason Comments Derm Problem josué is coming in today for a follow up on the irrtated mole on her side and also states she has some skin tags she would like removed Encounter Details Date Type Department Care Team Description 05/24[facility]2020 [facility] skin [facility] (Primary Dx); Dermatology Clinic MD Jay Multiple benign nevi; [facility] Folliculitis [address] 3[address] Floor [facility] [address] [place] [id number] [phone] Social History Tobacco Use Types Packs/Day Years [...] at Date Recorded Female 05/08/2020 12:57 PM RISK AND INSURANCE CONSULTANT COVID-19 Exposure Response Date Recorded In the last month, have you been in contact with No / Unsure 05/24/2020 9:08 AM RISK AND INSURANCE CONSULTANT someone who was confirmed or suspected to have Coronavirus / COVID-19? documented as of this encounter Patient Instructions Patient Ryan Nava - 05/24/2020 9:15 AM CST She may start benzoyl peroxide for the folliculitis on her posterior neck. At [employer], there are two brands Panoxyl and Differin cleanser which I prefer. AND INSURANCE CONSULTANT documented in this encounter Progress Notes Nawaf Morocho MD - 05/24/2020 9:15 AM CST [facility] Dermatology Note Dermatology Problem List: 1.??Acne vulgaris??and folliculitis -Current tx: spironolactone 100 mg daily -Previous tx: clindamycin 1% solution BID??prn, tretinoin 0.025% cream 2. Hand dermatitis -betamethasone 0.05% ointment??BID under occlusion 3. Irritant dermatitis,??alar creases/nasolabial folds??- likely secondary to retinoids - past treatment: hydrocortisone 2.5% cream??BID x 1-2 weeks until improved?? 4. Inflamed nevus, left flank area, resolved Encounter Date: May 24, 2020 CC: Chief Complaint Patient presents with ??? Derm Problem josué is coming in today for a follow up on the irrtated mole on her side and also states she has some skin tags she would like removed History of Present Illness: Ms. Tamiko Méndez is a 39 year old female who presents today for concerns regarding a mole. Patient was last seen on 04/27/2020 where we decided to have her monitor an irritated mole on her left side for the past month for any changes and follow-up for skin tag removal on her b/l axillae. Irritated mole: She presents today for changes in a nevus that she has had her lifetime. She denotesthat last month that the mole became irritated with increased surrounding erythema and she notes shetried to squeeze it out with clear drainage followed by decreased erythema in the last days as well as scaling. It was itchy and tender, but this has resolved. Denotes no ulceration/pus. Denies personal history of skin cancers, and notes one sister of her maternal grand mother that had skin cancer. Skin tags: Has skin tags on b/l axillae which she began noticing last year. They will intermittentlyget irritated and itchy. She started with a few and has noticed more develop within the last year. She notes her father will also develop similar lesions. Acne: Well-controlled on spironolactone daily. No concerns today. Denies side effects from spironolactone Hand dermatitis: She notes it will still get dry on her dorsal hands. She will use betamethasone 0.05% ointment as needed. Irritant dermatitis in nasal/labial folds: She feels this has resolved. She no longer uses the hydrocortisone 2.5% cream. The patient is otherwise feeling well. There are no other skin concerns at this time. Past Medical History: Patient Active Problem List [...] OF EYE Left diabetic retinopathy Social History: Social History Socioeconomic History ??? Marital status: Single Spouse name: None ??? Number of children: None ??? Years of education: None ??? Highest education level: None Occupational History ??? None Social Needs ??? Financial resource strain: None ??? Food insecurity Worry: None Inability: None ??? Transportation needs Medical: None Non-medical: None Tobacco Use ??? Smoking status: Never Smoker ??? Smokeless tobacco: Never Used Substance and Sexual Activity ??? Alcohol use: Yes ??? Drug use: None ??? Sexual activity: Yes Partners: Male control/protection: Condom, I.U.D., OCP Lifestyle ??? Physical activity Days per week: None Minutes per session: None ??? Stress: None Relationships ??? Social connections Talks on phone: None Gets together: None Attends christianity service: None Active member of club or organization: None Attends meetings of clubs or organizations: None Relationship status: None ??? Intimate partner violence Fear of current or ex partner: None Emotionally abused: None Physically abused: None Forced sexual activity: None Other Topics Concern ??? None Social History Narrative Works FT [facility]. Family History: Family History Problem Relation Age [...] hx of Medications: Current Outpatient Medications Medication Sig Dispense Refill [...] 90 tablet 3 ??? Continuous Blood Gluc Jacquard Twine Polisher Operator (FREESTYLE LEATHA 14 DAY READER) MARY [...] PO) ??? Injection Device for insulin (INPEN 629-ZYRA-ZJTSZ) MARY 2 each 4 times daily (before meals and nightly) 2 each 0 ??? Injection Device for insulin (INPEN 150-XTSW-YRBK) MARY 1 each 4 times daily (before [...] mL 11 ??? insulin syringe 31G X 16 0.5 ML MISC 1 Application 4 times [...] mg) by mouth daily 30 tablet 11 ??? tretinoin (RETIN-A) 0.025 % external cream Apply topically At Bedtime Pea- sized amount to the whole face. Start every other night and increase frequency over a period of weeks 45 g 3 Allergies Allergen Reactions ? ? Hay Fever & [A.R.M.] Stuffiness, watery eyes ??? No Clinical Screening - See Comments Unknown Review of Systems: -Skin Establ Pt: The patient denies any new rash, pruritus, or lesions that are symptomatic, changing or bleeding, except as per HPI. -Constitutional: The patient is feeling generally well. Physical exam: Vitals: There were no vitals taken for this visit. GEN: This is a well developed, well-nourished female in no acute distress, in a pleasant mood. SKIN: Focused examination of the posterior neck, axillae, and left flank was performed. - Left axillae with scattered 1-2mm skin-colored exophytic papules - Right side of chest above breast with scattered 1mm skin-colored exophytic papules - Left flank papule, ~5mm diameter with noted flesh colored nevus - Posterior neck with scattered pink papules and nodules. - No other lesions of concern on areas examined. Impression/Plan: 1. Acrochordon, b/l axille (x13) - Cryotherapy procedure note: After verbal consent and discussion of risks and benefits including but no limited to dyspigmentation/scar, blister, and pain, 13 were treated with 1-2mm freeze border for2 cycles with liquid nitrogen. Post cryotherapy instructions were provided. 2. Benign-appearing nevus, left flank. Inflammation has resolved. Explained to patient benign natureof lesion. No treatment is necessary at this time unless the lesion changes or becomes symptomatic. 3. Folliculitis, posterior neck. Discussed possible treatments including benzoyl peroxide. Describedpreferred OTC brands such as Panoxyl. Explained that this medication should be rinsed immediately due to risk of bleaching. Will f/u in three months to see if any improvement. - Start benzoyl peroxide once a day on posterior neck Follow-up in 3 month for folliculitis. Staff Involved: I saw and examined this patient in the presence of Dr. Rashawn Granger, MS4 [facility] Staff Physician: I was present with the medical student who participated in the service and in the documentation of the note. I have verified the history and personally performed the physical exam and medical decision making. I agree with the assessment and plan of care as documented in the note. The procedure(s) was(were) performed by myself. Cryotherapy procedure note: After verbal consent and discussion of risks and benefits, 13 skin tags was(were) treated with liquid nitrogen cryotherapy for 1 freeze/thaw cycles with 1-2mm borders. Post-cryotherapy wound care instructions were discussed and provided in written format. Nawaf Morocho MD Pronouns: he/him/his Parking Patroller Department of Dermatology [facility]: , [facility]: AND INSURANCE CONSULTANT documented in this encounter Nursing Notes Zarina Espino CMA - 05/24/2020 9:15 AM CST Dermatology Rooming Note Tamiko Méndez's goals for this visit include: Chief Complaint Patient presents with ??? Derm Problem josué is coming in today for a follow up on the irrtated mole on her side and also states she has some skin tags she would like removed Zarina Espino CMA on 05/24/2020 at 9:11 AM AND INSURANCE CONSULTANT documented in this encounter Plan of Treatment Upcoming Encounters Date Type Specialty Care Team Description 04/04/2022 Office Visit suit attendant Kaela Dubois APRN [facility] [address] [place] [address] (Maryjane pa) 04/23/2022 Virtual Visit Endocrinology Lottie Cedillo PA-C [address] [place] [address] (Maryjane rk) documented as of this encounter Procedures Procedure Name Priority Date/Time Associated Diagnosis Comme nts NV REMOVAL OF SKIN Routine 05/24/2020 4:04 PM RISK AND INSURANCE CONSULTANT Inflamed ski n tag TAGS, FIRST 15 documented in this encounter Visit Diagnoses Diagnosis Inflamed skin tag - Primary Unspecified hypertrophic and atrophic co ndition of skin Multiple benign nevi Benign neoplasm of skin, site unspecifie d Folliculitis Other specified disease of hair and hair follicles documented in this encounter Additional Health Concerns Assessment Noted Time PHQ-9 Depression Total Score: 0 04/06/2019 1:16 PM RISK AND INSURANCE CONSULTANT documented as of this encounter Care Teams Site Medical Director Relationship Specialty Start Date End Date Nelda Peña, PCP - General Nurse Practitioner 02/02/18 BRASS FINISHER [facility] [address] [facility] [address] [place] [address] Jose Lopez OD MD Optometry 03/04/18 Jillian Dubois Nurse Practitioner Nurse Practitioner 08/17/18 SHAW Infante [facility] [address] [place], [place] [address] Nelda Peña, Assigned PCP 03/12/20 03/03/21 BRASS FINISHER [facility] [address] [facility] [address] [place], [place] [address] Seda Moy Assigned OBGYN Provider 01/21/20 01/27/21 MD Jai [address] [place] [address] Lisa Hughes, Assigned Endocrinology 01/21/20 06/13/20 Provider [address] [place] [address] Nawaf Morocho MD Dermatology 04/24/20 [facility] [address] [facility] [address] [place] [address] Nawaf Morocho, Assigned Surgical 04/30/20 MD Provider [address] [address] documented as of this encounter
--- OUTSIDE RECORDS SUMMARY | 2022-02-19 14:27 | XMS_ITS | Encounter Summary ---
:1980 Author Organization [facility] Address [address] [place] [address] Care Team Providers Name Role Phone Nelda Peña APRN FIXING CARPENTER Primary Care Provider [phone] Jose Lopez OD Unavailable Jillian Dubois APRN FIXING CARPENTER Unavailable [phone] Seda Moy MD Unavailable [phone] Lisa Hughes MD Unavailable Jay Salas MD Unavailable Jay Salas MD Unavailable Nelda Peña APRN FIXING CARPENTER Unavailable [phone] Reason for Visit Reason Comments Medication Refill Citalopram Encounter Details Date Type Department Care Team Description 01/26/[address] [facility] Primary Care Nelda Peña, Medication Refill Clinic SHAW DIAZ (Citalopram) [address] [facility] [address] [facility] 4th Floor [address] [place], [place] [address] [phone] Social History Tobacco Use Types Packs/Day Years [...] at Date Recorded Female 05/08/2020 12:57 PM ACCOUNTING SOFTWARE SPECIALIST documented as of this encounter Miscellaneous Notes Telephone Encounter - Emma Hall RN - 01/26/2020 2:39 PM CDT Refill request being addressed in mychart encounter from 01/26/20 documented in this encounter Plan of Treatment Upcoming Encounters Date Type Specialty Care Team Description 04/04/2022 Office Visit senior mechanical technician Kaela Dubois APRN [facility] [address] [place] [address] (Maryjane rk) 04/23/2022 Virtual Visit Endocrinology Lottie Cedillo PA-C [address] [place] [address] (Maryjane pa) documented as of this encounter Visit Diagnoses Diagnosis PMDD (premenstrual dysphoric disorder) Premenstrual tension syndromes documented in this encounter Additional Health Concerns Assessment Noted Time PHQ-9 Depression Total Score: 0 04/06/2019 1:16 PM ACCOUNTING SOFTWARE SPECIALIST documented as of this encounter Care Teams [employer] Relationship Specialty Start Date End Date Nelda Peña, PCP - General Nurse Practitioner 02/02/18 STOCK PATCH SAWYER FIX[employer] CARPENTER [address] [facility] [address] [place], [place] [address] Jose Lopez OD MD Optometry 03/04/18 Jillian Dubois Nurse Practitioner Nurse Practitioner 08/17/18 SHAW Infante [employer] [address] [place], [place] [address] Seda Moy Assigned OBGYN Provider 01/21/20 01/27/21 MD Jai [address] [place] [address] Lisa Hughes, Assigned Endocrinology 01/21/20 06/13/20 MD Provider [address] [place], [place] [address] Jay Salas MD Assigned Pediatric 01/21/20 04/30/[address] [place] [address] Specialist Provider [place], [place] [id number] Jay Salas MD Assigned Surgical 01/21/20 04/29/20 9 [facility] Provider [place], [place] [id number] Nelda Peña, Assigned PCP 08/19/19 03/11/20 STOCK PATCH SAW[employer] FIXING CARPENTER [address] [facility] [address] [place], [place] [address] documented as of this encounter
--- OUTSIDE RECORDS SUMMARY | 2022-02-19 14:27 | XMS_ITS | Encounter Summary ---
:1980 Author Organization [facility] Address [facility] [place] [address] Care Team Providers Name Role Phone Nelda Peña APRN NET APPLICATION SUPPORT SPECIALIST Primary Care Provider [phone] Jose Lopez OD Unavailable Jillian Dubois APRN NET APPLICATION SUPPORT SPECIALIST Unavailable [phone] Seda Moy MD Unavailable [phone] Lisa Hughes MD Unavailable Jay Salas MD Unavailable Jay Salas MD Unavailable Nelda Peña APRN NET APPLICATION SUPPORT SPECIALIST Unavailable [phone] Reason for Visit Reason Onset Date Comments Patient Request 03/06/2020 COVID-19 positive Encounter Details Date Type Department Care Team Description 03/06/2020 [facility] Nelda Peña Pat ient Request Clinic Internal ROLL CUTTING OPERATOR NET APPLICATION SUPPORT SPECIALIST (COVID-19 positive ) Medicine [place] [address] [facility] 9[address] [facility] [address]th [address] [place], [place] [address] (work) [phone] Social History Tobacco Use Types Packs/Day Years [...] at Date Recorded Female 05/08/2020 12:57 PM DELICATESSEN CLERK COVID-19 Exposure Response Date Recorded In the last month, have you been in contact with No / Unsure 02/29/2020 1:32 PM DELICATESSEN CLERK someone who was confirmed or suspected to have Coronavirus / COVID-19? documented as of this encounter Miscellaneous Notes Telephone Encounter - Leslie Sheridan - 03/07/2020 1:39 PM CST I called and left detailed VM. Patient should quarantine at home x10 days minimum to make sure she is no longer infectious. She should continue her daily meds as directed, use tylenol if she has fever. She should go to the ED for severe SOB or otherwise if she is unable to manage symptoms at home. Leslie Sheridan, EMT at 1:40 PM on 03/07/2020. CATESSEN CLERK Telephone Encounter - Freda Reed - 03/06/2020 11:41 AM CST [facility] Call [facility] Phone Message May a detailed message be left on voicemail: yes Reason for Call: Other: Patient called to say that she tested positive for COVID-19 today and wondering what her next steps should be. Mild asthmatic and Diabetes type 1. Please follow up with patient to advise. Thank you! Action Taken: Message routed to: [facility] pcc Travel Screening: Not Applicable CATESSEN CLERK documented in this encounter Plan of Treatment Upcoming Encounters Date Type Specialty Care Team Description 04/04/2022 Office Visit nuclear medical technologist Kaela Dubois APRN [facility] [address] [place] [address] (Wo rk) 04/23/2022 Virtual Visit Endocrinology Lottie Cedillo PA-C [address] [place] [address] (Wo rk) documented as of this encounter Visit Diagnoses Not on filedocumented in this encounter Additional Health Concerns Assessment Noted Time PHQ-9 Depression Total Score: 0 04/06/2019 1:16 PM DELICATESSEN CLERK documented as of this encounter Care Teams Traditional Chinese Herbalist Relationship Specialty Start Date End Date Nelda Peña, PCP - General Nurse Practitioner 02/02/18 SHAW [facility] [address] [facility] [address] [place] [address] Jose Lopez OD MD Optometry 03/04/18 Jillian Dubois Nurse Practitioner Nurse Practitioner 08/17/18 SHAW Infante [facility] [address] [place] [address] Seda Moy Assigned OBGYN Provider 01/21/20 01/27/21 MD Jai [address] [place] [address] Lisa Hughes, Assigned Endocrinology 01/21/20 06/13/20 MD Provider [address] [place] [address] Jay Salas MD Assigned Pediatric 01/21/20 04/30/20 909 [facility] Provider [place], [place] [address] Jay Salas MD Assigned Surgical 01/21/20 04/29/20 [address] [place], [place] [address] Nelda Peña, Assigned PCP 08/19/19 03/11/20 ROLL CUTTING OPERATOR NET APPLICATION SUPPORT SPECIALIST [address] [facility] [address] [place], [place] [address] documented as of this encounter
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
--- OUTSIDE RECORDS SUMMARY | 2022-02-19 14:27 | XMS_ITS | Encounter Summary ---
:1980 Author Organization [place] Address [facility] [place] [address] Care Team Providers Name Role Phone Nelda Peña APRN COAT CHECK ATTENDANT Primary Care Provider Jose Lopez OD Unavailable Jillian Dubois APRN COAT CHECK ATTENDANT Unavailable [phone] Nelda Peña APRN COAT CHECK ATTENDANT Unavailable [phone] Seda Moy MD Unavailable [phone] Lisa Hughes MD Unavailable Jay Salas MD Unavailable Jay Salas MD Unavailable Nawaf Morocho MD Unavailable Reason for Visit Reason Comments Derm Problem dennis is coming in for a m ole check today, has changed color and texture Encounter Details Date Type Department Care Team Description 04/[facility]2020 [facility]Primary Derm[facility]ology [facility] MD Jay Dx) [address] [address] [phone] Social History Tobacco Use Types Packs/Day Years [...] at Date Recorded Female 05/08/2020 12:57 PM SPORTS BOOK SERVER COVID-19 Exposure Response Date Recorded In the last month, have you been in contact with No / Unsure 04/27/2020 11:06 AM SPORTS BOOK SERVER someone who was confirmed or suspected to have Coronavirus / COVID-19? documented as of this encounter Progress Notes Nawaf Morocho MD - 04/27/2020 11:30 AM CST Images from the original note were not included. [facility] Dermatology Note Dermatology Problem List: 1.??Acne vulgaris??and folliculitis -Current tx: spironolactone 100 mg daily -Previous tx: clindamycin 1% solution BID??prn, tretinoin 0.025% cream 2. Hand dermatitis -betamethasone 0.05% ointment??BID under occlusion 3. Irritant dermatitis,??alar creases/nasolabial folds??- likely secondary to retinoids -hydrocortisone 2.5% cream??BID x 1-2 weeks until improved?? 4. Inflamed nevus, left flank area -Continue to monitor. Encounter Date: Apr 27, 2020 CC: Chief Complaint Patient presents with ??? Derm Problem dennis is coming in for a mole check today, has changed color and texture History of Present Illness: Ms. Dennis Méndez is a 39 year old female who presents today for concerns regarding a mole. Patient was last seen in 03/28/20 in the setting of acne vulgaris and was started on spironolactone and has noticed a significant improvement with complete resolution of the nodular/cystic lesions along the jaw line. Denies side effects from spironolactone. Otherwise, notes no flares of the hand dermat itis and irritant dermatitis of the face. She presents today due to changes in a nevus that she has had her lifetime. She denotes that one week ago she wore new pants and noticed on last Friday (04/21/19) that the mole became irritated with increased surrounding erythema and she notes she tried to squeeze it out with clear drainage followed bydecreased erythema in the last days as well as scaling. Denotes no ulceration/pus. Denies personal history of skin cancers, and notes one sister of her maternal grand mother that had skin cancer. The patient is otherwise feeling well. There [...] on phone: None Gets together: None Attends protestant service: None Active member of club or organization: None Attends meetings of clubs or organizations: None Relationship status: None ??? Intimate partner violence Fear of current or ex partner: None Emotionally abused: None Physically abused: None Forced sexual activity: None Other Topics Concern ??? None Social History Narrative Works FT Lives in the [facility]. Family History: Family History Problem Relation Age [...] 90 tablet 3 ??? Continuous Blood Gluc System Software Developer (FREESTYLE LEATHA 14 DAY READER) MARY 1 [...] PO) ??? Injection Device for insulin (INPEN [id number]) MARY 2 each 4 times daily (before meals and nightly) 2 each 0 ??? Injection Device for insulin (INPEN [id number]) MARY 1 each 4 times daily (before [...] pleasant mood. SKIN: Focused examination of the face and left flank was performed. - Face without comedones, papules, nodules/cysts. - Left flank papule, ~5mm diameter with noted flesh colored nevus with surrounding erythema and scaling over the surface. - No other lesions of concern on areas examined. Impression/Plan: 1. Inflamed benign-appearing nevus, left flank. ?? Continue to monitor. Patient to let know if changes in the area. Photodocumentation today as above. ?? Will consider biopsy in 1 month if persisting during appointment to remove skin tags. Follow-up in 1 month for nevus check & removal of skin tags. Staff Involved: Case discussed with supervising staff attending, Dr. Morocho. Bill Braden Internal Medicine PG-Y2 Staff Physician Comments: I saw and evaluated the patient with the resident and I agree with the assessment and plan. I was present for the hector portions of the above major procedure and examination. Nawaf Morocho MD Pronouns: he/him/his Temporary Office Assistant Department of Dermatology Formerly named [facility]: , [facility]: TS BOOK SERVER documented in this encounter Nursing Notes Zarina Espino CMA - 04/27/2020 11:30 AM CST Dermatology Rooming Note Dennis Gallagher Méndez's goals for this visit include: Chief Complaint Patient presents with ??? Derm Problem dennis is coming in for a mole check today, has changed color and texture Zarina Espino CMA on 04/27/2020 at 11:34 AM TS BOOK SERVER documented in this encounter Plan of Treatment Upcoming Encounters Date Type Specialty Care Team Description 04/04/2022 Office Visit cork tipper Kaela Dubois APRN [facility] [address] [place], [place] [phone] (Wo rk) 04/23/2022 Virtual Visit Endocrinology Lottie Cedillo PA-C [address] [place], [place] [address] (Wo rk) documented as of this encounter Visit Diagnoses Diagnosis Benign nevus - Primary Benign neoplasm of skin, site unspecifie d documented in this encounter Additional Health Concerns Assessment Noted Time PHQ-9 Depression Total Score: 0 04/06/2019 1:16 PM SPORTS BOOK SERVER documented as of this encounter Care Teams Medicaid Collection Specialist Relationship Specialty Start Date End Date Nelda Peña, PCP - General Nurse Practitioner 02/02/18 NURSING UNIT CLERK COAT CHECK ATTENDANT [address] [facility] [address] [place], [place] [address] Jose Lopez OD MD Optometry 03/04/18 Jillian Dubois Nurse Practitioner Nurse Practitioner 08/17/18 SHAW Infante [facility] [address] [place], [place] [phone] Nelda Peña, Assigned PCP 03/12/20 03/03/21 NURSING UNIT CLERK COAT CHECK ATTENDANT [address] [facility] [address] [place], [place] [address] Seda Moy Assigned OBGYN Provider 01/21/20 01/27/21 MD Jai [address] [place], [place] [address] Lisa Hughes, Assigned Endocrinology 01/21/20 06/13/[address] [place] [id number] Jay Salas MD Assigned Pediatric 01/21/20 04/30/20 [address]09 [facility] Specialist Provider [place], [place] [address] Jay Salas MD Assigned Surgical 01/21/20 04/29/20 [address] [place] [address] Nawaf Morocho MD Dermatology 04/24/[address] [address] documented as of this encounter
--- OUTSIDE RECORDS SUMMARY | 2022-02-19 14:27 | XMS_ITS | Encounter Summary ---
:1980 Author Organization [place] Address [address] [place] [address] Care Team Providers Name Role Phone Nelda Peña APRN [facility] Primary Care Provider [phone] Jose Lopez OD Unavailable Jillian Dubois APRN [facility] Unavailable [phone] Nelda Peña APRN [facility] Unavailable [phone] Seda Moy MD Unavailable [phone] Lisa Hughes MD Unavailable Nawaf Morocho MD Unavailable Nawaf Morocho MD Unavailable Encounter Details Date Type Department Care Team Description 05/08/2020 Travel Social History Tobacco Use Types Packs/Day [...] at Date Recorded Female 05/08/2020 12:57 PM ASTROBIOLOGIST COVID-19 Exposure Response Date Recorded In the last month, have you been in contact with No / Unsure 04/27/2020 11:06 AM ASTROBIOLOGIST someone who was confirmed or suspected to have Coronavirus / COVID-19? documented as of this encounter Plan of Treatment Upcoming Encounters Date Type Specialty Care Team Description 04/04/2022 Office Visit knife setter grinder machine Kaela Dubois APRN [facility] [address] [place] [address] (Wo rk) 04/23/2022 Virtual Visit Endocrinology Lottie Cedillo PA-C [address] [place] [address] (Wo rk) documented as of this encounter Visit Diagnoses Not on filedocumented in this encounter Additional Health Concerns Assessment Noted Time PHQ-9 Depression Total Score: 0 04/06/2019 1:16 PM ASTROBIOLOGIST documented as of this encounter Care Teams Veterinary Assistant Technician Relationship Specialty Start Date End Date Nelda Peña, PCP - General Nurse Practitioner 02/02/18 SHAW DIAZ [address] [place] [facility] [address] [place], [place] [address] Jose Lopez OD MD Optometry 03/04/18 Jillian Dubois Nurse Practitioner Nurse Practitioner 08/17/18 SHAW Infante [facility] [address] [place] [address] Nelda Peña, Assigned PCP 03/12/20 03/03/21 STAFF GENETIC COUNSELOR ACCOUNTING CLERKS SUPERVISOR [address] [facility] [address] [place] [address] Seda Moy Assigned OBGYN Provider 01/21/20 01/27/21 MD Jai [address] [place] [address] Lisa Hughes, Assigned Endocrinology 01/21/20 06/13/20 Provider [address] [place] [address] Nawaf Morocho MD Dermatology 04/24/[address] [address] Nawaf Morocho, Assigned Surgical 04/30/[address] [address] documented as of this encounter
--- OUTSIDE RECORDS SUMMARY | 2022-02-19 14:27 | XMS_ITS | Encounter Summary ---
:1980 Author Organization [place] Address [facility] [place] [address] Care Team Providers Name Role Phone Nelda Peña MAIL HANDLER SORTER [employer]IL DOG Primary Care Provider Jose Lopez OD Unavailable Jillian Dubois APRN [employer]G Unavailable [phone] Seda Moy MD Unavailable [phone] Lisa Hughes MD Unavailable Jay Salas MD Unavailable Jay Salas MD Unavailable Nelda Peña APRN [employer] Unavailable [phone] Reason for Visit Reason Onset Date Comments Refill Request 01/26/2020 spironolactone (DERIAN CTONE) 100 MG Encounter Details Date Type Department Care Team Description 01/26/2020 [facility] Jay Salas Refmike l Request Dermatology Clinic (spironolactone Todd [address] [facility] (ALDACTONE) 100 MG ) [address] [place], [place] 3rd Floor [address] [place], [place] [phone] (Wo rk) [address] [phone] Social History Tobacco Use Types Packs/Day Years [...] at Date Recorded Female 05/08/2020 12:57 PM MAILING MACHINE ASSISTANT documented as of this encounter Miscellaneous Notes Telephone Encounter - Adriana Mckeon MD - 01/31/2020 4:09 PM MAILING MACHINE ASSISTANT Received refill request for spironolactone 100 mg daily as the resident animal control specialist. Reviewed patient's chart and attached communication. Patient last seen 07/12/2019 for acne. RTC of 3 months overdue but scheduled for 03/07/20 . After reviewing the medication list and assessment and plan from last visit, the refill request was accepted. Adriana Mckeon PGY3 Dermatology Resident pager [phone] Salas as FYI only ING MACHINE ASSISTANT Telephone Encounter - Caity Urban RN - 01/31/2020 3:09 PM CST spironolactone (ALDACTONE) 100 MG Last Written Prescription Date: 07/12/19 Last Fill Quantity: 90, # refills: 1 Last Office Visit : 07/12/19 Future Office visit: 03/07/20 RTC 3 MOS Routing refill request to provider for review/approval because: Do you want to cont. RF until (over September 2019) Pending appt ? 03/07 ? ING MACHINE ASSISTANT Telephone Encounter - Cassy Ramirez CMA - 01/26/2020 2:05 PM CDT Patient up coming appt. 03/07 spironolactone (ALDACTONE) 100 MG tablet 90 tablet 1 07/12/2019 01/08/2020 No Sig - Route: Take 1 tablet (100 mg) by mouth daily - Oral documented in this encounter Plan of Treatment Upcoming Encounters Date Type Specialty Care Team Description 04/04/2022 Office Visit traffic engineering technician Kaela Dubois APRN [facility] [address] [place] [address] (Wo rk) 04/23/2022 Virtual Visit Endocrinology Lottie Cedillo PA-C [address] [place] [address] (Wo rk) documented as of this encounter Visit Diagnoses Diagnosis Acne vulgaris - Primary Other acne documented in this encounter Additional Health Concerns Assessment Noted Time PHQ-9 Depression Total Score: 0 04/06/2019 1:16 PM MAILING MACHINE ASSISTANT documented as of this encounter Care Teams Manager Legal Relationship Specialty Start Date End Date Nelda Peña, PCP - General Nurse Practitioner 02/02/18 [facility]AW [facility] [address] [place] [address] [facility] [address] [place], [place] [address] Jose Lopez OD MD Optometry 03/04/18 Jillian Dubois Nurse Practitioner Nurse Practitioner 08/17/18 SHAW Infante [facility] [address] [place] [address] Seda Moy Assigned OBGYN Provider 01/21/20 01/27/21 MD Jai [address] [place] [address] Lisa Hughes, Assigned Endocrinology 01/21/20 06/13/20 MD Provider [address] [place], [place] [phone] Jay Salas MD Assigned Pediatric 01/21/20 04/30/20 [address] [place] [address] Jay Salas MD Assigned Surgical 01/21/20 04/29/20 9 [place], [place] [phone] Nelda Peña, Assigned PCP 08/19/19 03/11/20 MAIL HANDLER SORTER DEVIL DOG [address] [place] [address] [facility] [address] [place], [place] [phone] documented as of this encounter
--- OUTSIDE RECORDS SUMMARY | 2022-02-19 14:27 | XMS_ITS | Encounter Summary ---
:1980 Author Organization [place] Address [facility] [place] [address] Care Team Providers Name Role Phone Nelda Peña APRN PRODUCTION CONTROL SPECIALIST Primary Care Provider [phone] Jose Lopez OD Unavailable Jillian Dubois APRN PRODUCTION CONTROL SPECIALIST Unavailable [phone] Seda Moy MD Unavailable [phone] Lisa Hughes MD Unavailable Jay Salas MD Unavailable Jay Salas MD Unavailable Nelda Peña APRN PRODUCTION CONTROL SPECIALIST Unavailable [phone] Reason for Visit Reason Onset Date Comments Refill Request 01/26/2020 citalopram (CELEXA) 40 MG tablet Encounter Details Date Type Department Care Team Description 01/26/2020 MyC Refill [facility] Primary Care Nelda Peña, Refill Request Clinic BIOINFORMATICS TECHNICIAN PRODUCTION CONTROL SPECIALIST (citalopram (CELEXA) [address] [facility] [address] [place] [address] [facility] 40 MG ... 4th Floor [address] [place] [address] [id number] (Wo rk) Social History Tobacco Use Types [...] at Date Recorded Female 05/08/2020 12:57 PM BRANDS EDITOR documented as of this encounter Miscellaneous Notes Telephone Encounter - Emma Hall, RN - 01/26/2020 2:33 PM CDT citalopram (CELEXA) 40 MG tablet Last Written Prescription Date: 12/31/19 Last Fill Quantity: 30, # refills: 0 Last Office Visit : 02/17/18 Future Office visit: None scheduled Routing refill request to provider for review/approval because: Has been nearly 2 years since last visit. Last refill showed NO more refills documented in this encounter Plan of Treatment Upcoming Encounters Date Type Specialty Care Team Description 04/04/2022 Office Visit meat team member Kaela Dubois APRN [facility] [address] [place] [address] (Wo rk) 04/23/2022 Virtual Visit Endocrinology Lottie Cedillo , [place] [address] [place] [address] (Wo rk) documented as of this encounter Visit Diagnoses Diagnosis PMDD (premenstrual dysphoric disorder) Premenstrual tension syndromes documented in this encounter Additional Health Concerns Assessment Noted Time PHQ-9 Depression Total Score: 0 04/06/2019 1:16 PM BRANDS EDITOR documented as of this encounter Care Teams Physician Liaison Relationship Specialty Start Date End Date Nelda Peña, PCP - General Nurse Practitioner 02/02/18 BIOINFORMATICS TECHNICIAN PRODUCTION CONTROL SPECIALIST 420 [facility] [address] [place], [place] [address] Jose Lopez OD MD Optometry 03/04/18 Jillian Dubois Nurse Practitioner Nurse Practitioner 08/17/18 SHAW Infante [facility] [address] [place], [place] [address] Seda Moy Assigned OBGYN Provider 01/21/20 01/27/21 MD Jai [address] [place], [place] [address] Lisa Hughes, Assigned Endocrinology 01/21/20 06/13/20 MD Provider [address] [place], [place] [address] Jay Salas MD Assigned Pediatric 01/21/20 04/30/20 909 [facility] Specialist Provider [place], [place] [address] Jay Salas MD Assigned Surgical 01/21/20 04/29/20 909 [facility] Provider [place], [place] [address] Nelda Peña, Assigned PCP 08/19/19 03/11/20 BIOINFORMATICS TECHNICIAN PRODUCTION CONTROL SPECIALIST 420 [facility] [address] [place] [address] documented as of this encounter
--- OUTSIDE RECORDS SUMMARY | 2022-02-19 14:27 | XMS_ITS | Encounter Summary ---
:1980 Author Organization [place] Address [address] [place] [address] Care Team Providers Name Role Phone Nelda Peña APRN ARMATURE AND ROTOR WINDER Primary Care Provider Jose Lopez OD Unavailable Jillian Dubois APRN ARMATURE AND ROTOR WINDER Unavailable [phone] Nelda Peña APRN ARMATURE AND ROTOR WINDER Unavailable [phone] Seda Moy MD Unavailable [phone] Lisa Hughes MD Unavailable Nawaf Morocho MD Unavailable Nawaf Morocho MD Unavailable Reason for Visit Reason Onset Date Comments Clinic Care Coordination - Follow-up 05/15/2020 Peg ble to reach Encounter Details Date Type Department Care Team Description [facility] & [facility] ELIEZER Yoo - Follow- up (Unable to [facility] reach ) [address] [address] Social History Tobacco Use Types Packs/Day [...] at Date Recorded Female 05/08/2020 12:57 PM FRONT DESK ADMINISTRATOR COVID-19 Exposure Response Date Recorded In the last month, have you been in contact with No / Unsure 04/27/2020 11:06 AM FRONT DESK ADMINISTRATOR someone who was confirmed or suspected to have Coronavirus / COVID-19? documented as of this encounter Miscellaneous Notes Telephone Encounter - Naila Choi CMA - 05/15/2020 12:44 PM CST On 05/15/2020, at 12:44, justowriter operator called patient at [phone] to confirm Virtual Visit. Physician Primary Care Sports Medicine unable to make contact with patient. Physician Primary Care Sports Medicine left detailed voice message for call back. [phone] left as call back number. Luciana Choi CMA T DESK ADMINISTRATOR documented in this encounter Plan of Treatment Upcoming Encounters Date Type Specialty Care Team Description 04/04/2022 Office Visit health promotion manager Kaela Dubois APRN [facility] [address] [place] [address] (Wo rk) 04/23/2022 Virtual Visit Endocrinology Lottie Cedillo , [place] [address] [place], [place] [phone] (Wo rk) documented as of this encounter Visit Diagnoses Not on filedocumented in this encounter Additional Health Concerns Assessment Noted Time PHQ-9 Depression Total Score: 0 04/06/2019 1:16 PM FRONT DESK ADMINISTRATOR documented as of this encounter Care Teams Machine Stonecutter Relationship Specialty Start Date End Date Nelda Peña, PCP - General Nurse Practitioner 02/02/18 VEGETABLE GROWER ARMATURE AND ROTOR WINDER 420 [facility] [address] [place], [place] [address] Jose Lopez OD MD Optometry 03/04/18 Jillian Dubois Nurse Practitioner Nurse Practitioner 08/17/18 SHAW Infante [facility] [address] [place] [address] Nelda Peña, Assigned PCP 03/12/20 03/03/21 VEGETABLE GROWER ARMATURE AND ROTOR WINDER 420 [facility] [address] [place] [address] Seda Moy Assigned OBGYN Provider 01/21/20 01/27/21 MD Jai [address] [place] [address] Lisa Hughes, Assigned Endocrinology 01/21/20 06/13/20 Provider [address] [place], [place] [address] Nawaf Morocho MD Dermatology 04/24/[address] [place], [place] [address] Nawaf Morocho, Assigned Surgical 04/30/[address] [address] documented as of this encounter
--- OUTSIDE RECORDS SUMMARY | 2022-02-19 14:27 | XMS_ITS | Encounter Summary ---
:1980 Author Organization [place] Address [address] [facility] [place] [address] Care Team Providers Name Role Phone Nelda Peña APRN CONSULTING GROUP ANALYST Primary Care Provider Jose Lopez OD Unavailable Jillian Dubois APRN CONSULTING GROUP ANALYST Unavailable [phone] Nelda Peña APRN CONSULTING GROUP ANALYST Unavailable [phone] Reason for Visit Reason Onset Date Comments Schedule Surgery 01/12/2020 Encounter Details Date Type Department Care Team Description 01/12/[address] [facility] Karlene Fatima Schedule Surgery [facility] [address] Professional Bldg [facility] [address] [place], [place] [phone] Social History Tobacco Use [...] at Date Recorded Female 05/08/2020 12:57 PM VIBRATING SCREEN OPERATOR documented as of this encounter Miscellaneous Notes Telephone Encounter - Isabel Fatima - 01/12/2020 2:19 PM CDT lvm for patient to call surgery scheduling. documented in this encounter Plan of Treatment Upcoming Encounters Date Type Specialty Care Team Description 04/04/2022 Office Visit lead embedded software engineer Kaela Dubois APRN [facility] [address] [place] [phone] (Wo rk) 04/23/2022 Virtual Visit Endocrinology Lottie Cedillo PA-C [address] [place] [phone] (Wo rk) documented as of this encounter Visit Diagnoses Not on filedocumented in this encounter Additional Health Concerns Assessment Noted Time PHQ-9 Depression Total Score: 0 04/06/2019 1:16 PM VIBRATING SCREEN OPERATOR documented as of this encounter Care Teams Warrant Server Relationship Specialty Start Date End Date Nelda Peña APRN PCP - General Nurse Practitioner 02/02/18 [facility] [address] [place] [address] [facility] [address] [place] [address] Jose Lopez OD MD Optometry 03/04/18 Jillian Dubois, Nurse Practitioner Nurse Practitioner 07/30 TARIFF EXPERT [facility] [address] [place], [place] [address] Nelda Peña, TARIFF EXPERT Assigned PCP 08/19/1903/19 CONSULTING GROUP ANALYST 420 [facility] [address] [place], [place] [address] documented as of this encounter
--- OUTSIDE RECORDS SUMMARY | 2022-02-19 14:27 | XMS_ITS | Encounter Summary ---
:1980 Author Organization [place] Address [address] [place] [address] Care Team Providers Name Role Phone Nelda Peña APRN PATIENT RELATIONS LIAISON Primary Care Provider [phone] Jose Lopez OD Unavailable Jillian Dubois APRN PATIENT RELATIONS LIAISON Unavailable [phone] Seda Moy MD Unavailable [phone] Lisa Hughes MD Unavailable Jay Salas MD Unavailable Jay Salas MD Unavailable Nelda Peña APRN, CNP Unavailable [phone] Reason for Visit Reason Comments Recheck Medication medication refill and check in Encounter Details Date Type Department Care Team Description 02/29/2020 Virtual Visit [facility] Nelda Peña de of recurrent Clinic Internal MSHAW CNP major depressive Medicine [address] disorder, unspecified 909 [facility] SE [facility] 741 depression episode 4th Floor [place], [place] severity (H) [place] [address] Social History Tobacco Use Types Packs/Day [...] at Date Recorded Female 05/08/2020 12:57 PM STILL WORKER HELPER COVID-19 Exposure Response Date Recorded In the last month, have you been in contact with No / Unsure 02/29/2020 1:32 PM STILL WORKER HELPER someone who was confirmed or suspected to have Coronavirus / COVID-19? documented as of this encounter Progress Notes Nelda Peña APRN PATIENT RELATIONS LIAISON - 02/29/2020 2:30 PM CST Tamiko Méndez is a 39 year old female who is being evaluated via a billable [...] the test done at a later time. Video visits are billed at different rates depending on your insurance coverage. Please reach out toyour insurance provider with any questions. If during the course of the call the physician/provider feels a video visit is not appropriate, you will not be charged for this service. Patient has given verbal consent for Video visit? Yes How would you like to obtain your AVS? MyChart If you are dropped from the video visit, the video invite should be resent to: [phone] Will anyone else be joining your video visit?no Subjective Tamiko Méndez is a 39 year old female who presents today via video visit for the following health issues: HPI Tamiko is here for medication review and refill. She feels the citalopram 40 mg is very helpful. She would like to continue her current medication and dose. She is scheduled for a partial hysterectomy soon as she expelled her IUD. She is participating in the [employer] system and has lost 17 pounds in a few months. She has reduced her A1C from 11.9 to 9.7. She is getting in June. Video Start Time: 2:40 Review of Systems See above. Objective Vitals: No vitals were obtained today due to virtual visit. Physical Exam GENERAL: Healthy, alert and no distress EYES: Eyes grossly normal to inspection. No discharge or erythema, or obvious scleral/conjunctival abnormalities. RESP: No audible wheeze, cough, or visible cyanosis. No visible retractions or increased work of breathing. SKIN: Visible skin clear. No significant rash, abnormal pigmentation or lesions. NEURO:. Mentation and speech appropriate for age. PSYCH: Mentation appears normal, affect normal/bright, judgement and insight intact, normal speech and appearance well-groomed. Tamiko was seen today for recheck medication. Diagnoses and all orders for this visit: Episode of recurrent major depressive disorder, unspecified depression episode severity (H) - citalopram (CELEXA) 40 MG tablet; Take 1 tablet (40 mg) by mouth daily Video-Visit Details Type of service: Video Visit Video End Time:2:48 Originating Location (pt. Location): Home Distant Location (provider location): [facility] Platform used for Video Visit: Lori Peña APRN, JOE L WORKER HELPER documented in this encounter Nursing Key Lamb H - 02/29/2020 2:30 PM CST Chief Complaint Patient presents with ??? Recheck Medication medication refill and check in JO Jordan at 1:36 PM on 02/29/2020 Video Visit Technology for this patient: [employer] Video Visit- Patient was left in waiting room L WORKER HELPER documented in this encounter Plan of Treatment Upcoming Encounters Date Type Specialty Care Team Description 04/04/2022 Office Visit clinic office assistant Kaela Dubois APRN [facility] SP [facility] [address] [place] [address] (Wo rk) 04/23/2022 Virtual Visit Endocrinology Lottie Cedillo PA-C [address] [place] [address] (Wo rk) documented as of this encounter Visit Diagnoses Diagnosis 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, unspecified depression episode severity (H) documented in this encounter Additional Health Concerns Assessment Noted Time PHQ-9 Depression Total Score: 0 04/06/2019 1:16 PM STILL WORKER HELPER documented as of this encounter Care Teams Materials Assistant Relationship Specialty Start Date End Date Nelda Peña, PCP - General Nurse Practitioner 02/02/18 [facility] [address] [place] [address] [facility] 741 [place], [place] [address] Jose Lopez OD MD Optometry 03/04/18 Jillian Dubois Nurse Practitioner Nurse Practitioner 08/17/18 SHAW Infante [facility] [address] [place] [address] Seda Moy Assigned OBGYN Provider 01/21/20 01/27/21 MD Jai [address] [place] [address] Lisa Hughes, Assigned Endocrinology 01/21/20 06/13/20 MD Provider [address] [place] [address] Jay Salas MD Assigned Pediatric 01/21/20 04/30/[address] [place] [address] [place] [address] Jay Salas MD Assigned Surgical 01/21/20 04/29/[address] [place] [phone] Nelda Peña, Assigned PCP 08/19/19 03/11/20 [employer] PATIENT RELATIONS LIAISON [address] [place] [address] [facility] [address] [place] [address] documented as of this encounter
--- OUTSIDE RECORDS SUMMARY | 2022-02-19 14:27 | XMS_ITS | Encounter Summary ---
:1980 Author Organization [place] Address [facility]0 [place] [address] Care Team Providers Name Role Phone Nelda Peña APRN [facility] Primary Care Provider [phone] Jose Lopez OD Unavailable Jillian Dubois APRN [facility] Unavailable [phone] Nelda Peña APRN [facility] Unavailable [phone] Seda Moy MD Unavailable [phone] Lisa Hughes MD Unavailable Jay Salas MD Unavailable Jay Salas MD Unavailable Reason for Visit Reason Onset Date Comments Appointment 03/28/2020 called to kay 3 month follow up in clinic Encounter Details Date Type Department Care Team Description 03/28/[address] MD kay Thompson 3 month follow [facility] up in clinic) [address] [address] ([place]) Social History Tobacco Use Types [...] at Date Recorded Female 05/08/2020 12:57 PM HEAD [place] COVID-19 Exposure Response Date Recorded In the last month, have you been in contact with No / Unsure 02/29/2020 1:32 PM HEAD [place] someone who was confirmed or suspected to have Coronavirus / COVID-19? documented as of this encounter Miscellaneous Notes Telephone Encounter - Cassy Ramirez CMA - 03/28/2020 5:05 PM CST lvm stating to call back and schedule 3 month follow up appt. In clinic per Dr. COLLADO [place] documented in this encounter Plan of Treatment Upcoming Encounters Date Type Specialty Care Team Description 04/04/2022 Office Visit orchid transplanter Kaela Dubois APRN [facility] [address] [place] [address] ([place]ane [place]) 04/23/2022 Virtual Visit Endocrinology Lottie Cedillo PA-C [address] [place] [address] ([place]ane pa) documented as of this encounter Visit Diagnoses Not on filedocumented in this encounter Additional Health Concerns Assessment Noted Time PHQ-9 Depression Total Score: 0 04/06/2019 1:16 PM HEAD [place] documented as of this encounter Care Teams Cipher Expert Relationship Specialty Start Date End Date Nelda Peña, PCP - General Nurse Practitioner 02/02/18 [facility] [facility] 420 [facility] 741 [place], [place] [address] Jose Lopez OD MD Optometry 03/04/18 Jillian Dubois Nurse Practitioner Nurse Practitioner 08/17/18 SHAW Infante [facility] [address] [place], [place] [address] Nelda Peña, Assigned PCP 03/12/20 03/03/21 [facility] [facility] 420 [facility] 741 [place] [address] Seda Moy Assigned OBGYN Provider 01/21/20 01/27/21 MD Jai [address] [place], [place] [address] Lisa Hughes, Assigned Endocrinology 01/21/20 06/13/[address] [place] [id number] Jay Salas MD Assigned Pediatric 01/21/20 04/30/[address] [place] [address] Specialist Provider [place], [place] [phone] Jay Salas MD Assigned Surgical 01/21/20 04/29/[address] [place] [address] Provider [place], [place] [address] documented as of this encounter
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
--- OUTSIDE RECORDS SUMMARY | 2022-02-19 14:28 | XMS_ITS | Encounter Summary ---
:1980 Author Organization [place] Address [address] [facility] [address] Care Team Providers Name Role Phone Nelda Peña APRN AERONAUTICAL PROJECT ENGINEER Primary Care Provider [phone] Jose Lopez OD Unavailable Jillian Dubois APRN AERONAUTICAL PROJECT ENGINEER Unavailable [phone] Nelda Peña APRN AERONAUTICAL PROJECT ENGINEER Unavailable [phone] Reason for Visit Reason Onset Date Comments Clinic Care Coordination - Follow-up 10/21/2019 Encounter Details Date Type Department Care Team Description 10/21/2019 Telephone [facility], [facility] Clinic Care Coordination Clinic [place] - Follow-up [address] Mobile Professional Bldg [facility] [address] [place] [address] Social History Tobacco Use Types Packs/Day Years [...] at Date Recorded Female 05/08/2020 12:57 PM OBSTETRICAL NURSE COVID-19 Exposure Response Date Recorded In the last month, have you been in contact with No / Unsure 10/19/2019 2:55 PM CDT someone who was confirmed or suspected to have Coronavirus / COVID-19? documented as of this encounter Miscellaneous Notes Telephone Encounter - Key Londono RN - 10/25/2019 8:[address] Moy, ok to plan for IUD removal at 11/01 visit. Telephone Encounter - Key Londono RN - 10/21/2019 3:08 PM CDT Spoke with Tamiko regarding malpositioned IUD noted on ultrasound. Discussed backup control and patient states understanding. Patient has consult to discuss hysterectomy with Dr. Moy on 11/01. Asks if IUD could be removed atthat appointment to save her a trip to clinic. She is not having pain with malpositioned IUD, so sheis comfortable waiting until this scheduled visit. Advised will route to Dr. Moy to make sure this is appropriate. Telephone Encounter - Key Londono RN - 10/21/2019 2:38 PM CDT Received call to inform of incidental finding of malpositioned IUD in endocervical canal on ultrasound performed in radiology 10/18. Patient had ultrasound done for abnormal vaginal bleeding. Routing to on-call provider for review and plan. documented in this encounter Plan of Treatment Upcoming Encounters Date Type Specialty Care Team Description 04/04/2022 Office Visit photograph finisher Kaela Dubois APRN [facility] [address] [place], [place] [address] (Wo rk) 04/23/2022 Virtual Visit Endocrinology Lottie Cedillo PA-C [address] [place], [place] [address] (Wo rk) documented as of this encounter Visit Diagnoses Not on filedocumented in this encounter Additional Health Concerns Assessment Noted Time PHQ-9 Depression Total Score: 0 04/06/2019 1:16 PM OBSTETRICAL NURSE documented as of this encounter Care Teams Aluminum Siding Mechanic Relationship Specialty Start Date End Date Nelda Peña APRN PCP - General Nurse Practitioner 02/02/[address] [place], [place] [address] Jose Lopez OD MD Optometry 03/04/18 Jillian Dubois, Nurse Practitioner Nurse Practitioner 07/30 [facility] [address] [place], [place] [address] Nelda Peña APRN Assigned PCP 08/19/1903/[address] [place], [place] [address] documented as of this encounter
--- OUTSIDE RECORDS SUMMARY | 2022-02-19 14:28 | XMS_ITS | Encounter Summary ---
:1980 Author Organization [place] Address [facility] [place] [address] Care Team Providers Name Role Phone Nelda Peña FURNITURE DETAILER NEW CAR SALES MANAGER Primary Care Provider Jose Lopez OD Unavailable Jillian Dubois APRN NEW CAR SALES MANAGER Unavailable [phone] Encounter Details Date Type Department Care Team Description 06/30/2019 Telephone [facility] Dermatology Jay Salas MD [address] [place] [address] [place], [place] [phone] Social History Tobacco Use Types Packs/Day Years [...] at Date Recorded Female 05/08/2020 12:57 PM STONEMASON SUPERVISOR documented as of this encounter Miscellaneous Notes Telephone Encounter - Juana Lopez, EMT - 06/30/2019 1:13 PM CDT Called to convert appt with Dr. Salas to video. Pt agreed, instructions sent via [employer]. Teledermatology Nurse Call for RETURN patients seen within the last 3 years: The patient was contacted by phone and we reviewed, Due to the coronavirus pandemic, we are callingto review your visit and offer you a teledermatology visit where you send in photos via [employer]. These photos will be seen by an MD or ERROL. This will be billed to you and your insurance. The patient was also told that a teledermatology visit is not as thorough as an in-person visit and that the quality of the photograph sent may not be of the same quality as that taken by the dermatology clinic, but the patient would like to proceed with an teledermatology because of National Emergency Regarding Coronavirus disease (COVID 19) Outbreak. The patient chose to: The patient selected [employer]. This video visit will be conducted via a call between you and your physician/provider via [employer]. We have found that certain health care [...] have the test done at a later time.If during the course of the call the physician/provider feels a video visit is not appropriate, you will not be charged for this service. Patient would like the video invitation sent by: Patient will confirm via [employer] whether using phone or computer. Pharmacy preference was updated. The patient was told to contact the clinic if they have not received correspondence within 72 hours. documented in this encounter Plan of Treatment Upcoming Encounters Date Type Specialty Care Team Description 04/04/2022 Office Visit manager fiber Kaela Dubois, [facility] [address] [place], [place] [address] (Wo rk) 04/23/2022 Virtual Visit Endocrinology Lottie Cedillo PA-C [address] [place], [place] [address] (Wo rk) documented as of this encounter Visit Diagnoses Not on filedocumented in this encounter Additional Health Concerns Assessment Noted Time PHQ-9 Depression Total Score: 0 04/06/2019 1:16 PM STONEMASON SUPERVISOR documented as of this encounter Care Teams Asp Net Developer Relationship Specialty Start Date End Date Nelda Peña APRN PCP - General Nurse Practitioner 02/02/18 [facility] [address] [facility] [address] [place] [address] Jose Lopez OD MD Optometry 03/04/18 Jillian Dubois, Nurse Practitioner Nurse Practitioner 07/30 FURNITURE DETAILER [facility] [address] [place], [place] [address] documented as of this encounter
--- OUTSIDE RECORDS SUMMARY | 2022-02-19 14:28 | XMS_ITS | Encounter Summary ---
:1980 Author Organization [place] Address [facility] [place] [address] Care Team Providers Name Role Phone Nelda Peña APRN BUILDING ARCHITECT Primary Care Provider [phone] Jose Lopez OD Unavailable Jillian Dubois APRN BUILDING ARCHITECT Unavailable [phone] Nelda Peña APRN BUILDING ARCHITECT Unavailable [phone] Encounter Details Date Type Department Care Team Description 10/18/2019 Orders Only [facility] Lab Type 1 diabetes mellitus wit h complications (H); [address] [facility] Abnormal uterine bleeding [address] [place] [address] Social History Tobacco Use Types [...] at Date Recorded Female 05/08/2020 12:57 PM CONTROL CLERK AUDITING COVID-19 Exposure Response Date Recorded In the last month, have you been in contact with No / Unsure 10/19/2019 2:55 PM CDT someone who was confirmed or suspected to have Coronavirus / COVID-19? documented as of this encounter Plan of Treatment Upcoming Encounters Date Type Specialty Care Team Description 04/04/2022 Office Visit fund raiser Kaela Dubois APRN [facility] [address] [place] [address] (Wo rk) 04/23/2022 Virtual Visit Endocrinology Lottie Cedillo PA-C [address] [place] [address] (Wo rk) documented as of this encounter Procedures Procedure Name Priority Date/Time Associated Diagnosis Comme nts HEMOGLOBIN Routine 10/18/2019 12:05 PM Abnormal uterine Resu lts for this CDT bleeding procedure are i n the results section . documented in this encounter Results Hemoglobin (10/18/2019 12:05 PM CDT) P athologist Signature Hemoglobin 12.3 11.7 - 15.7 10/18/2019 [facility] g/dL 12:12 PM CDT [facility] Specimen Anatomical Collection Method Collection Time Receive d Time (Source) Location / / Volume Laterality Blood specimen 10/18/2019 12:05 0 (specimen) PM CDT 12:10 PM CDT Jillian Dubois APRN, CNP LAB - BLOOD ORDERABLE S Performing Organization Address City/State/ZIP Code Phon e Number [address] [address] [facility] documented in this encounter Visit Diagnoses Diagnosis Type 1 diabetes mellitus with complicati ons (H) Abnormal uterine bleeding Unspecified disorder of menstruation and other abnormal bleeding from female genital tract documented in this encounter Additional Health Concerns Assessment Noted Time PHQ-9 Depression Total Score: 0 04/06/2019 1:16 PM CONTROL CLERK AUDITING documented as of this encounter Care Teams Web Content & Social Media Manager Relationship Specialty Start Date End Date Nelda Peña APRN PCP - General Nurse Practitioner 02/02/18 BUILDING ARCHITECT [address] [facility] [address] [place], [place] [address] Jose Lopez OD MD Optometry 03/04/18 Jillian Dubois, Nurse Practitioner Nurse Practitioner 07/30 PATROL SUPERVISOR [facility] [address] [place], [place] [address] Nelda Peña APRN Assigned PCP 08/19/1903/[address] [place], [place] [address] documented as of this encounter
--- OUTSIDE RECORDS SUMMARY | 2022-02-19 14:28 | XMS_ITS | Encounter Summary ---
:1980 Author Organization [facility] Address [address] [place] [address] Care Team Providers Name Role Phone Nelda Peña APRN HYDROGEN OPERATOR Primary Care Provider [phone] Jose Lopez OD Unavailable Jillian Dubois APRN HYDROGEN OPERATOR Unavailable [phone] Nelda Peña APRN HYDROGEN OPERATOR Unavailable [phone] Reason for Referral Patient Education (Routine) - Closed Specialty Diagnoses / Procedures Referred By Contact Refer red To Contact Diabetes Education Diagnoses 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) Lottie Cedillo PA-C [address] [place] [id number] Referral ID Status Reason Start Date Expiration Date Visits Requ ested Visits Authorized [id number] Closed 12/10/2019 12/09/2020 1 1 Reason for Visit Reason Comments RECHECK dm 1 Encounter Details Date Type Department Care Team Description 12/09/2019 Virtual Visit Lottie Cope Type 1 diabe chaz Jones PA-C mellitus with [address] [place] [address] ST [address] complications (H) [address]rd Floor [place], [place] (Primary Dx) [place] [id number] Social History Tobacco Use Types Packs/Day [...] at Date Recorded Female 05/08/2020 12:57 PM OXYACETYLENE CUTTER COVID-19 Exposure Response Date Recorded In the last month, have you been in contact with No / Unsure 12/07/2019 10:44 AM CDT someone who was confirmed or suspected to have Coronavirus / COVID-19? documented as of this encounter Patient Instructions Patient InstructionsAlLottie anne PA-C - 12/09/2019 2:30 PM CDT Dear Tamiko, It was garcia speaking with you and I look forward to working with you to reach your care goals. Please increase Lantus from 42 to 46 units. Goal is to have fasting BG 100 -120 most days and 90 - 140 nearly all days. Please increase Lantus dose by 1 unit every 3-7 days as long as no BG <70 until most fasting BG are 100 - 120. Please download InPen steven onto your phone and enter the following settings: Long actin units once daily Short acting Carbohydrate ratio: MN - 10 am 1 u: 4 g 10 am - MN 1u: 5 g (we can adjust if still high or low after meals.) Correction: 1u :50mg/dl Target BG 6 am - 8 pm: 125 MN - 6am: 175 8 pm - MN: 175 (we can adjust this once we see now low BG.) I have sent the device to [facility] pharmacy in [place] as they frequently can send with no cost to patient (or at most $35). Their number is: [phone]. The lispro/Humalog penfill cartridges have been sent to your local [facility]. Please let me know if this is not now the preferred covered product. Stephany or Maria Isabel in our office will be happy to help you learn to use InPen effectively and assist you with pre- pump education and supporting you with paperwork and ascertaining costs for Tslim pump with Control IQ. Please do schedule your eye exam - or let me know if is up to date; the last exam I see is May 2018 and I do know they are scheduling follow-ups. Consider: Https://[employer]/ Https://[email or web address].Orbital Traction/ As physical activity options. I look forward to seeing you again in the coming weeks to help you address your insulin dosing to bring BG to 100 - 120 fasting and ideally 80 - 180 the rest of the time. Below are instructions to attach InPen report (or a picture of your BG and insulin dose log) to My Chart. My best wishes, Lottie Cedillo PA-C, [facility] Diabetes, Endocrinology, and Metabolism [phone] Appointments/Nurse [phone] URGENTafter hours/weekend Career Representative assistant front office manager InPen Reports 1. Open InPen steven on device 2. Tap Reports icon and pull down to generate new report 3. In Reports, tap Settings in top left hand corner to select date range: 14 days 4. Tap Share icon (upper right) 5. Select Email/Print/Share. Scroll up to Save to Files. Save InPen Report. 6. Login to [employer] (steven or web). Select send new message: upload InPen Report. Send. ? Please send the report prior to your visit. documented in this encounter Progress Notes Lottie Cedillo PA-C - 12/09/2019 2:30 PM CDT dm 1 Kevin Stout CMA Patients Glucose Data was Sent via Email Tamiko Méndez is a 38 year old female who is being evaluated [...] the video invite should be resent to: Send to e-mail at: [email or web address] Will anyone else be joining your video visit? No Video-Visit Details Type of service: Video Visit Video Start Time: 2:31 Video End Time: 2:59 Originating Location (pt. Location): Home Distant Location (provider location): [facility] ENDOCRINOLOG[facility] Platform used for Video Visit: [employer], ariel - went to [employer] as poor audio with [facility] Endocrinology Lottie Cedillo PA-C 12/09/2019 Chief Complaint: Diabetes History of Present Illness: Tamiko Méndez is a 38 year old female with a history of type 1 diabetes mellitus who presents for follow up. She was diagnosed with type 1 diabetes at age 10.5 months old, with complication of proliferative DR. She has depression, obesity and abnormal uterine bleeding for which she is hoping to undergo hysterectomy, currently treated with Mirena IUD and POP contraceptives. In college she was on insulin pump, then afterwards switched to NPH and R due to cost, the pump getting caught on things, and recurrent infections. Then went to [employer] insulins in early 2018. She has seen Dr. Abraham and Akanksha in clinic. She last saw Dr. Gilman in November and reported that had not been paying much attention to her diabetes, specifically covering her meals, that finances were an issue and that she had been under stress at work. She tried Trulicity but it made her feel nauseated so she stopped it. She is unable to get a pump due to cost and had stopped using the jossie recently due to cost.??No changesto her insulin routine were made at that time, she was instructed to work on timing her doses with meals and hopefully meet with health psychology to address some of the psychological barriers to her management. On 04/06/2019, her A1c was 11.4. At this point we continued to discuss ways over overcoming p sychological and financial barriers to management of her diabetes. We also discussed increasing her Tresiba dose. When I last saw her in May, we again discussed increasing basal insulin and encouraged her in recent weight loss and increased physical activity. Interval history: Tamiko tells me that she started [employer] program on Friday. She thinks it will beeasier as it will take a lot of this thinking and meal planning off of her chest she is interested in trying to do the same for her diabetes. She was worried about low BG. Friday and Friday low 200s, yesterday and today 199, 184 today. She has meals and coffee then about2 -3 hours later her BG is up in the 300s even though taking BG 15 minutes before eating. What she has found so far is that she needs 1u:4-5 g of carb, still not nailed down T/W took 1 unit per 4 g/carb, corrected >125, Now trying 5 units /carb and then correcting for whatever is >125. She is doing calculations in her head and using syringes with NovoLog vial. She currently uses 1 :50 >125. Goal B At bedtime: 175 Last reading was 202. Notes that whatever she does morning spike. Not sure what to do. Was taking Tresiba 42 units, now on Lantus 42 units she suspects because of insurance. Her meals are all 12-13 g carbs, with protein and a bit of and a bit of fat. She is doing some online insulin communities and boards including [employer] and is interested in getting the tandem T salmon pump with basilar control IQ and wonders about the difference is. She wonders about her activity and diet and weight loss. She tells me that Mitch was previously medifast. She also tells me that she is hoping to get a hysterectomy to put it into her abnormal uterine bleeding butneeds her A1c under 8 in order to do that. She is anxious about diabetes care while she is in the hospital. She has read some terrible stories online. She wonders about the safety of returning to her gym, where she continues to pay for membership but has not been for months. She had a recent A1c on 12/07/19 of 11.9. Blood Glucose Monitorin11/26/2019 ~ 11/27/2019 ~ ?? 11/28/2019 262 ?? 11/29/2019 429 ?? 11/30/2019 ~ ?? 12/01/2019 380 ?? 12/02/2019 ~ ?? 12/03/2019 346, 313, 400 ?? 12/04/2019 347 ?? 12/05/2019 291 ?? 12/06/2019 393, 235 ?? Diabetes monitoring and complications: CAD: No Last eye exam results: She has bilateral proliferative retinopathy and was last seen by ophthalmology on 05/02/2018. She plans to make an appointmen. Microalbuminuria: 21.95 mg/g Cr in February 2018 [...] morning as long as no overnight or gm lows., Disp: 10 mL, Rfl: 11 ??? insulin syringe 31G X 08/13 0.5 ML MISC, 1 Application 4 times [...] 10 mo) Past Surgical History: Induced by [facility] Oral surgery Dental extractions Diabetic retinopathy left [...] General: Pleasant, overweight F with bright affect. Psych: Mood is good, affect is warm and appropriate. Thought form and content are fluid and coherent. HEENT: Eyes and sclera are clear. Extraocular movements are grossly intact without proptosis. Nares are patent, mucous membranes moist. Neck: No masses or JVD are noted. Resp: Easy and unlabored breathing. Neuro: Alert and oriented, communicating clearly. Exam limited due to this being a video and then only audio visit. Data: Lab Results Component Value Date NA 137 08/17/2018 POTASSIUM 4.0 08/17/2018 CHLORIDE 105 08/17/2018 CO2 27 08/17/2018 ANIONGAP 5 08/17/2018 GLC 134 (H) 08/17/2018 BUN 14 08/17/2018 CR 0.80 08/17/2018 PRAFUL 9.8 08/17/2018 Lab Results Component Value Date GFRESTIMATED >90 08/17/2018 GFRESTIMATED >90 03/21/2018 GFRESTIMATED >90 08/29/2006 GFRESTBLACK >90 08/17/2018 GFRESTBLACK >90 03/21/2018 GFRESTBLACK >90 08/29/2006 Lab Results Component Value Date MICROL 34 03/21/2018 UMALCR 21.95 03/21/2018 Lab Results Component Value Date A1C 11.9 (H) 12/07/2019 A1C 11.5 (H) 03/21/2018 A1C 11.9 (H) 08/29/2006 HEMOGLOBINA1 11.4 (A) 04/06/2019 HEMOGLOBINA1 11.3 (A) 12/09/2018 HEMOGLOBINA1 11.4 (A) 06/18/2018 No results found for: CPEPT, GADAB, ISCAB Lab Results Component Value Date CHOL 176 03/21/2018 TRIG 96 03/21/2018 HDL 66 03/21/2018 LDL 91 03/21/2018 LDL 50 08/29/2006 NHDL 110 03/21/2018 Assessment and Plan: 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) Tamiko has type 1 diabetes with BG well above goal. She is now monitoring her blood sugar frequently and engaged in a weight loss diet. We discussed options to improve her hyper glycemia. She is interested in starting the in pen device right away we did look at that together online. She would like tomove to T slim pump with control IQ which I do think would be an excellent option for her to emphasize that she will indeed need to bolus for her meals. She is agreeable to increasing her Lantus dose from 42- to 46 units today and to increase by 1 unit every 3 to 7 days until fasting blood glucose mostly 100-1 20. She also will download the in pen steven onto her phone and begin using the in pen device. BP is at goal. Lipids reviewed, consider statin at 40 y age. On contraception, no plans to conceive. She will schedule eye exam. Meeting PA goals and working on diet. Pt instructions: Dear Tamiko, It was garcia speaking with you and I look forward to working with you to reach your care goals. Please increase Lantus from 42 to 46 units. Goal is to have fasting BG 100 -120 most days and 90 - 140 nearly all days. Please increase Lantus dose by 1 unit every 3-7 days as long as no BG <70 until most fasting BG are 100 - 120. Please download InPen steven onto your phone and enter the following settings: Long actin units once daily Short acting Carbohydrate ratio: MN - 10 am 1 u: 4 g 10 am - MN 1u: 5 g (we can adjust if still high or low after meals.) Correction: 1u :50mg/dl Target BG 6 am - 8 pm: 125 MN - 6am: 175 8 pm - MN: 175 (we can adjust this once we see now low BG.) I have sent the device to [facility] pharmacy in [place] as they frequently can send with no cost to patient (or at most $35). Their number is: [phone]. The lispro/Humalog penfill cartridges have been sent to your local [facility]. Please let me know if this is not now the preferred covered product. Stephany or Maria Isabel in our office will be happy to help you learn to use InPen effectively and assist you with pre- pump education and supporting you with paperwork and ascertaining costs for Tslim pump with Control IQ. Please do schedule your eye exam - or let me know if is up to date; the last exam I see is May 2018 and I do know they are scheduling follow-ups. Consider: Https://[employer]/ Https://[email or web address].Orbital Traction/ As physical activity options. I look forward to seeing you again in the coming weeks to help you address your insulin dosing to bring BG to 100 - 120 fasting and ideally 80 - 180 the rest of the time. Below are instructions to attach InPen report (or a picture of your BG and insulin dose log) to My Chart. My best wishes, Lottie Cedillo PA-C, [facility] Diabetes, Endocrinology, and Metabolism [phone] Appointments/Nurse [phone] URGENTafter hours/weekend Career Representative assistant front office manager InPen Reports 1. Open InPen steven on device 2. Tap Reports icon and pull down to generate new report 3. In Reports, tap Settings in top left hand corner to select date range: 14 days 4. Tap Share icon (upper right) 5. Select Email/Print/Share. Scroll up to Save to Files. Save InPen Report. 6. Login to [employer] (steven or web). Select send new message: upload InPen Report. Send. ? Please send the report prior to your visit. Follow-up: 3 months >50% of 28 minute visit spent in face to face counseling, education and coordination of care related to options for better glycemic control as well as preventing, detecting, and treating hypoglycemia. It is my privilege to be involved in the care of the above patient. Lottie Cedillo PA-C, [facility] Diabetes, Endocrinology, and Metabolism [phone] Appointments/Nurse [phone] pager [phone] nurse line documented in this encounter Plan of Treatment Upcoming Encounters Date Type Specialty Care Team Description 04/04/2022 Office Visit eyeglass maker Kaela Dubois APRN [facility] [address] [place] [address] (Wo rk) 04/23/2022 Virtual Visit Endocrinology Lottie Cedillo PA-C [address] [place], [place] [phone] (Wo rk) Scheduled Referrals Name Type Priority Associated Diagnoses Order S [facility] AMBULATORY ADULT Referral Routine Type 1 diabetes mellitus Expected: ASSISTANT MANAGER TRAINEE with complications (H) 12/10/2019, Expires: REFERRAL 12/09/2020 documented as of this encounter Visit Diagnoses Diagnosis Type 1 diabetes mellitus with complicati ons (H) - Primary documented in this encounter Additional Health Concerns Assessment Noted Time PHQ-9 Depression Total Score: 0 04/06/2019 1:16 PM OXYACETYLENE CUTTER documented as of this encounter Care Teams Miner Assistant Relationship Specialty Start Date End Date Nelda Peña APRN PCP - General Nurse Practitioner 02/02/18 [facility] [address] [facility] [address] [place], [place] [address] Jose Lopez OD MD Optometry 03/04/18 Jillian Dubois, Nurse Practitioner Nurse Practitioner 07/30 DOCK GR[employer] [facility] [address] [place], [place] [phone] Nelda Peña, DOCK GRADER Assigned PCP 08/19/1903/19 [facility] [address] [facility] [address] [place], [place] [address] documented as of this encounter
--- OUTSIDE RECORDS SUMMARY | 2022-02-19 14:28 | XMS_ITS | Encounter Summary ---
:1980 Author Organization [facility] Address [address] [place] [address] Care Team Providers Name Role Phone Nelda Peña APRN VESSEL LINER Primary Care Provider [phone] Jose Lopez OD Unavailable Jillian Dubois APRN VESSEL LINER Unavailable [phone] Nelda Peña APRN VESSEL LINER Unavailable [phone] Reason for Visit Reason Onset Date Comments Prior Auth - Medication 11/05/2019 Insulin Degludec (TRESIBA)-[place] denied Encounter Details Date Type Department Care Team Description 11/05/2019 Telephone [facility] EndocrinLottie Story, Prior Auth - Medication [facility] [facility] (Insulin Degludec 3rd Floor [address] [facility] (TRESIBA)-[place] denied) [place] [id number] Social History Tobacco Use Types Packs/Day Years [...] at Date Recorded Female 05/08/2020 12:57 PM VENDER COVID-19 Exposure Response Date Recorded In the last month, have you been in contact with No / Unsure 11/02/2019 10:36 AM CDT someone who was confirmed or suspected to have Coronavirus / COVID-19? documented as of this encounter Miscellaneous Notes Telephone Encounter - Lottie Cedillo PA-C - 11/11/2019 1:14 PM CDT Please advise Glargine (Lantus or Basaglar) pen sent to her pharmacy. Please let her know that it should work very similar to Tresiba, but more important to take it at the same time each day (within the hour) to get even coverage. If she has any concerns with this, please let me know. Appears previously had Tresiba in vial and I am okay with switch if she desires this some reason (cost?). Thank you! It is my privilege to be involved in the care of the above patient. Lottie Cedillo PA-C, [facility] Diabetes, Endocrinology, and Metabolism [phone] Appointments/Nurse [phone] pager [phone] nurse line Telephone Encounter - Malu Andrews RN - 11/10/2019 10:33 AM CDT Tresiba U 100 denied in a Prior auth. She needs to have faild therapy with both Lantus and Toujeo. She has used lantus and NPH in the past but has not used the formulary Toujeo. Can Toujeo be prescribed or is there a good reason that would not be used for her ? Malu Andrews, RN on 11/10/2019 at 10:36 AM Telephone Encounter - Rocío Damon - 11/09/2019 9:07 AM CDT [facility] This is currently under review and decision is due by 11/09. Telephone Encounter - Rocío Damon - 11/05/2019 3:09 PM CDT Images from the original note were not included. Central Prior Authorization Team PA Initiation Medication: Insulin Degludec (TRESIBA)-[place] initiated Insurance Company: [employer] - Pharmacy Filling the Rx: [facility] [address] [place] [address] Filling Pharmacy Filling Pharmacy Fax: Start Date: 11/05/2019 Telephone Encounter - Naomie Estrella MA - 11/05/2019 2:14 PM CDT Prior Authorization Retail Medication Request Medication/Dose: Insulin Degludec (TRESIBA) ICD code (if different than what is on RX):E10.8 Rationale: Type 1 diabetes Insurance Name:[facility] Information (if different than what is on RX) Name: Phone: Telephone Encounter - Coby Warren - 11/05/2019 1:02 PM CDT Health Call Center Phone Message May a detailed message be left on voicemail: yes Reason for Call: Medication Question or concern regarding medication Prescription Clarification Name of Medication: Insulin Degludec (TRESIBA) Prescribing Provider: Nguyen Pharmacy: [facility] [address] [place] [address] What on the order needs clarification? Pt states she has new insurance with [employer] and needs PRIOR AUTH for TRESIBA. Pt states sheis running low on insulin. Action Taken: Message routed to: [facility] endo Travel Screening: Not Applicable Oral Onc MGMT - Rocío Damon - 11/05/2019 1:02 PM CDT Images from the original note were not included. PRIOR AUTHORIZATION DENIED Medication: Insulin Degludec (TRESIBA)-[place] denied Denial Date: 11/09/2019 Denial Rational: Must try/fail Lantus (d/c'd due to formulary change) and Toujeo (not tried) Appeal Information: documented in this encounter Plan of Treatment Upcoming Encounters Date Type Specialty Care Team Description 04/04/2022 Office Visit doctor of nursing practice Kaela Dubois APRN [facility] [address] [place] [address] (Wo rk) 04/23/2022 Virtual Visit Endocrinology Lottie Cedillo PA-C [address] [place], [place] [address] (Wo rk) documented as of this encounter Visit Diagnoses Diagnosis Type 1 diabetes mellitus with complicati ons (H) - Primary documented in this encounter Additional Health Concerns Assessment Noted Time PHQ-9 Depression Total Score: 0 04/06/2019 1:16 PM VENDER documented as of this encounter Care Teams Steam Fitter Supervisor Maintenance Relationship Specialty Start Date End Date Nelda Peña APRN PCP - General Nurse Practitioner 02/02/18 VESSEL LINER [address] [facility] [address] [place], [place] [phone] Jose Lopez OD MD Optometry 03/04/18 Jillian Dubois, Nurse Practitioner Nurse Practitioner 07/30 [facility] [address] [place], [place] [address] Nelda Peña APRN Assigned PCP 08/19/1903/19 [facility] [address] [facility] [address] [place], [place] [phone] documented as of this encounter
--- OUTSIDE RECORDS SUMMARY | 2022-02-19 14:28 | XMS_ITS | Encounter Summary ---
:1980 Author Organization [place] Address [address] [place] [address] Care Team Providers Name Role Phone Nelda Peña APRN [facility] Primary Care Provider [phone] Jose Lopez OD Unavailable Jillian Dubois APRN LANDING WORKER Unavailable [phone] Nelda Peña APRN LANDING WORKER Unavailable [phone] Encounter Details Date Type Department Care Team Description 10/18/2019 Travel Social History Tobacco Use Types Packs/Day [...] at Date Recorded Female 05/08/2020 12:57 PM SUIT MAKER COVID-19 Exposure Response Date Recorded In the last month, have you been in contact with No / Unsure 10/18/2019 11:44 AM CDT someone who was confirmed or suspected to have Coronavirus / COVID-19? documented as of this encounter Plan of Treatment Upcoming Encounters Date Type Specialty Care Team Description 04/04/2022 Office Visit business supervisor Kaela Dubois, [facility] [address] [place] [address] (Wo rk) 04/23/2022 Virtual Visit Endocrinology Lottie Cedillo , [facility] [address] [place] [phone] (Wo rk) documented as of this encounter Visit Diagnoses Not on filedocumented in this encounter Additional Health Concerns Assessment Noted Time PHQ-9 Depression Total Score: 0 04/06/2019 1:16 PM SUIT MAKER documented as of this encounter Care Teams Drawing In Machine Tender Relationship Specialty Start Date End Date Nelda Peña APRN PCP - General Nurse Practitioner 02/02/[address] [place], [place] [address] Jose Lopez OD MD Optometry 03/04/18 Jillian Dubois, Nurse Practitioner Nurse Practitioner 07/30 BURGLAR ALARM MECHANIC [facility] [address] [place], [place] [phone] Nelda Peña APRN Assigned PCP 08/19/1903/[address] [place], [place] [phone] documented as of this encounter
--- OUTSIDE RECORDS SUMMARY | 2022-02-19 14:28 | XMS_ITS | Encounter Summary ---
:1980 Author Organization [facility] Address [address] [place] [id number] Care Team Providers Name Role Phone Nelda Peña APRN ATHLETE MANAGER Primary Care Provider Jose Lopez OD Unavailable Jillian Dubois APRN ATHLETE MANAGER Unavailable [phone] Nelda Peña APRN ATHLETE MANAGER Unavailable [phone] Reason for Visit Reason Onset Date Comments Call Back 11/29/2019 Regarding TRESIBA me dication Encounter Details Date Type Department Care Team Description 11/29/2019 Telephone [facility] EndocrinLottie Story, Call Back (Regarding [facility] PA-C TRESIBA medication) [address] [place] [phone] Social History Tobacco Use Types Packs/Day Years [...] at Date Recorded Female 05/08/2020 12:57 PM EVP [employer] EXPERIENCE [employer]ATEGY COVID-19 Exposure Response Date Recorded In the last month, have you been in contact with No / Unsure 11/02/2019 10:36 AM CDT someone who was confirmed or suspected to have Coronavirus / COVID-19? documented as of this encounter Miscellaneous Notes Telephone Encounter - Naomie Estrella MA - 11/30/2019 1:58 PM CDT No labs needed antonia Cedillo Telephone Encounter - Naomie Estrella MA - 11/29/2019 4:25 PM CDT Patient scheduled follow up and wants to know if any labs are needed prior to appointment. Telephone Encounter - Ibeth Stoll - 11/29/2019 12:19 PM CDT [facility] Phone Message May a detailed message be left on voicemail: yes Reason for Call: Patient requesting a call back regarding TRESIBA medication. Please call. Action Taken: Message routed to: [facility] Travel Screening: Not Applicable documented in this encounter Plan of Treatment Upcoming Encounters Date Type Specialty Care Team Description 04/04/2022 Office Visit lawn specialist Kaela Dubois APRN [facility] [address] [place], [place] [phone] (Wo rk) 04/23/2022 Virtual Visit Endocrinology Lottie Cedillo PA-C [address] [place], [place] [phone] (Wo rk) documented as of this encounter Visit Diagnoses Not on filedocumented in this encounter Additional Health Concerns Assessment Noted Time PHQ-9 Depression Total Score: 0 04/06/2019 1:16 PM EVP [employer] documented as of this encounter Care Teams Mountain Or Glacier Guide Relationship Specialty Start Date End Date Nelda Peña, SUPERVISOR TRAVEL TRAILER PCP - General Nurse Practitioner 02/02/18 ATHLETE MANAGER [address] [place] [phone] Jose Lopez OD MD Optometry 03/04/18 Jillian Dubois, Nurse Practitioner Nurse Practitioner 07/30 SUPERVISOR TRAVEL TRAILER ATHLETE MANAGER [facility] [address] [place], [place] [phone] Nelda Peña APRN Assigned PCP 08/19/1903/19 ATHLETE MANAGER [address] [place] [address] [place] [phone] documented as of this encounter
--- OUTSIDE RECORDS SUMMARY | 2022-02-19 14:28 | XMS_ITS | Encounter Summary ---
:1980 Author Organization [facility] Address [address] [place] [address] Care Team Providers Name Role Phone Nelda Peña APRN CALCULATOR OPERATOR Primary Care Provider [phone] Jose Lopez OD Unavailable Jillian Dubois APRN CALCULATOR OPERATOR Unavailable [phone] Nelda Peña APRN CALCULATOR OPERATOR Unavailable [phone] Encounter Details Date Type Department Care Team Description 12/07/2019 Hospital Encounter [facility] Lottie Cedillo Ty pe 1 diabetes [facility] C, PA-C mellitus with [address] [facility] complications (H) [place] [address] [place], [place] [phone] [id number] Social History Tobacco Use Types Packs/Day [...] at Date Recorded Female 05/08/2020 12:57 PM MANAGEMENT ARCHITECT COVID-19 Exposure Response Date Recorded In the [...] 1 Application 5 times 1 Device 1 Supervisor Type Bar And Segment ([employer] LEATHA 14 DAY READER) DEVIIndications: 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) Digestive Enzymes 0 (PAPAYA AND ENZYMES PO) insulin syringe 31G X 1 Application 4 times 90 each 3 16 0.5 ML daily (before meals MISCIndications: Type 1 and nightly) diabetes mellitus with complications (H) multivitamin w/minerals Take 1 tablet by 0 (THERA-VIT-M) tablet mouth daily OMEPRAZOLE PO 0 augmented betamethasone Apply topically 2 50 g 1 04/0904/25/2021 dipropionate times daily Do not (DIPROLENE-AF) 0.05 % apply to face, groin, external or armpits creamIndications: Chronic dermatitis of hands citalopram (CELEXA) 40 Take 1 tablet (40 mg) 90 tablet 1 12/31/2019 MG tabletIndications: by mouth daily PMDD (premenstrual dysphoric disorder) citalopram (CELEXA) 40 Take 1 tablet (40 mg) 30 tablet 0 02/29/2020 MG tabletIndications: by mouth daily Episode of recurrent major depressive disorder, unspecified depression episode severity (H) Continuous Blood Gluc Change every 14 days. 2 each 11 02/202006/30/2020 Sensor (FREESTYLE LEATHA 14 DAY SENSOR) MISCIndications: 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) Continuous Blood Gluc 1 Application 4 times 2 each 3 05/04/2021 Sensor (FREESTYLE LEATHA daily 14 DAY SENSOR) MISCIndications: 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) insulin aspart (NOVOLOG 14 units with meals 4 vial 3 02/202002/08/2021 VIAL) 100 UNITS/ML and correction 04/24 vialIndications: Type 1 >150 diabetes mellitus with complications (H) Insulin Degludec Inject 42 Units 10 mL 11 06/10/201901/2020 (TRESIBA) 100 UNIT/ML Subcutaneous daily SOLNIndications: Type 1 Increase by 1 unit diabetes mellitus with every 5-7 days until complications (H) fasting blood sugar is at 90 - 140 each morning as long as no overnight or snow ranger lows. insulin glargine (LANTUS Inject 42 Units 45 mL 3 201912/10/2019 PEN) 100 UNIT/ML Subcutaneous At penIndications: Type 1 Bedtime diabetes mellitus with complications (H) levonorgestrel (MIRENA) 1 each (20 mcg) by 0 02/2802/29/2020 20 MCG/24HR Intrauterine route IUDIndications: continuous Encounter for IUD insertion, Encounter for insertion of intrauterine contraceptive device LORazepam (ATIVAN) 0.5 Take 0.5 mg by mouth 0 05/201701/23/2021 MG tablet 2 times daily as needed norethindrone (AYGESTIN) Take 1 tablet (5 mg) 90 tablet 3 0 11/03/2019 10/30/2020 5 MG tabletIndications: by mouth daily Abnormal uterine bleeding (AUB) norethindrone (MICRONOR) Take 1 tablet (0.35 84 tablet 3 02/08/2021 0.35 MG mg) by mouth daily tabletIndications: Spotting spironolactone Take 1 tablet (100 90 tablet 1 07/12/2019 (ALDACTONE) 100 MG mg) by mouth daily tabletIndications: Acne vulgaris tretinoin (RETIN-A) Apply topically At 45 g 3 04/09/19 20 02/08/2021 0.025 % external Bedtime Pea-sized creamIndications: Acne amount to the whole vulgaris face. Start every other night and increase frequency over a period of weeks documented as of this encounter Plan of Treatment Upcoming Encounters Date Type Specialty Care Team Description 04/04/2022 Office Visit pta Kaela Dubois APRN [facility] [address] [place] [address] (Wo rk) 04/23/2022 Virtual Visit Endocrinology Lottie Cedillo PA-C [address] [place], [place] [phone] (Wo rk) documented as of this encounter Procedures Procedure Name Priority Date/Time Associated Diagnosis Comme nts HEMOGLOBIN A1C Routine 12/07/2019 10:54 AM Type 1 diabetes Res ults for this CDT mellitus with procedure are in complications (H) the result s section. documented in this encounter Results (ABNORMAL) Hemoglobin A1c (12/07/2019 10:54 AM CDT) Analysis Performed At Patho logist Time Signature Hemoglobin A1C 11.9 (H) 0 - 5.6 % 12/07/2019 [place] 11:24 AM CDT [facility] Comment: Normal <5.7% Prediabetes 5.7-6.4% ??Diab etes 6.5% or higher - adopted from ADA consensus guidelines. Specimen Anatomical Collection Method Collection Time Receive d Time (Source) Location / / Volume Laterality Blood specimen 12/07/2019 10:54 0 (specimen) AM CDT 10:59 AM CDT Lottie Cedillo PA-C LAB - BLOOD ORDERABLES Performing Organization Address City/State/ZIP Code Phon e Number M [facility] [address] [place] [address] [facility] [address] [id number], [facility] [phone] documented in this encounter Visit Diagnoses Diagnosis Type 1 diabetes mellitus with complicati ons (H) documented in this encounter Additional Health Concerns Assessment Noted Time PHQ-9 Depression Total Score: 0 04/06/2019 1:16 PM MANAGEMENT ARCHITECT documented as of this encounter Care Teams Training Executive Relationship Specialty Start Date End Date Nelda Peña APRN PCP - General Nurse Practitioner 02/02/[address] [place], [place] [address] Jose Lopez OD MD Optometry 03/04/18 Jillian Dubois, Nurse Practitioner Nurse Practitioner 07/30 CHEMICAL PRODUCTION ENGINEER [facility] [address] [place], [place] [address] Nelda Peña APRN Assigned PCP 08/19/1903/[address] [place], [place] [address] documented as of this encounter
--- OUTSIDE RECORDS SUMMARY | 2022-02-19 14:28 | XMS_ITS | Encounter Summary ---
:1980 Author Organization [facility] Address [address] [place] [address] Care Team Providers Name Role Phone Nelda Peña APRN [facility] Primary Care Provider [phone] Jose Lopez OD Unavailable Jillian Dubois APRN LITERACY SPECIALIST Unavailable [phone] Nelda Peña APRN LITERACY SPECIALIST Unavailable [phone] Encounter Details Date Type Department Care Team Description 10/19/2019 Travel Social History Tobacco Use Types Packs/Day [...] at Date Recorded Female 05/08/2020 12:57 PM HORTICULTURAL FARMER COVID-19 Exposure Response Date Recorded In the last month, have you been in contact with No / Unsure 10/19/2019 2:55 PM CDT someone who was confirmed or suspected to have Coronavirus / COVID-19? documented as of this encounter Plan of Treatment Upcoming Encounters Date Type Specialty Care Team Description 04/04/2022 Office Visit county auditor Kaela Dubois, [facility] [address] [place] [address] (Wo rk) 04/23/2022 Virtual Visit Endocrinology Lottie Cedillo , ERROL [address] [place] [phone] (Wo rk) documented as of this encounter Visit Diagnoses Not on filedocumented in this encounter Additional Health Concerns Assessment Noted Time PHQ-9 Depression Total Score: 0 04/06/2019 1:16 PM HORTICULTURAL FARMER documented as of this encounter Care Teams Manager Order Relationship Specialty Start Date End Date Nelda Peña APRN PCP - General Nurse Practitioner 02/02/[address] [place], [place] [address] Jose Lopez OD MD Optometry 03/04/18 Jillian Dubois, Nurse Practitioner Nurse Practitioner 07/30 ASSISTANT TENNIS COACH [facility] [address] [place] [address] Nelda Peña APRN Assigned PCP 08/19/1903/[address] [place], [place] [phone] documented as of this encounter
--- OUTSIDE RECORDS SUMMARY | 2022-02-19 14:28 | XMS_ITS | Encounter Summary ---
:1980 Author Organization [facility] Address [address] [place] [address] Care Team Providers Name Role Phone Nelda Peña APRN, CNP Primary Care Provider Jose Lopez OD Unavailable Jillian Dubois APRN, CNP Unavailable [phone] Nelda Peña APRN FIELD EXAMINER Unavailable [phone] Encounter Details Date Type Department Care Team Description 10/19/2019 [facility]illary [facility], [facility] Procedure Center Jillian Infante, [place] [id number] [facility] [place] 1[facility] [place], [place] [address] [address] [place], [place] [phone] [facility] Social History Tobacco Use Types Packs/Day Years [...] at Date Recorded Female 05/08/2020 12:57 PM STATISTICS TUTOR COVID-19 Exposure Response Date Recorded In the last month, have you been in contact with No / Unsure 10/19/2019 2:55 PM CDT someone who was confirmed or suspected to have Coronavirus / COVID-19? documented as of this encounter Plan of Treatment Upcoming Encounters Date Type Specialty Care Team Description 04/04/2022 Office Visit general contractor Kaela Dubois APRN [facility] [address] [place] [address] (Wo rk) 04/23/2022 Virtual Visit Endocrinology Lottie Cedillo PA-C [address] [place] [phone] (Wo rk) documented as of this encounter Procedures Procedure Name Priority Date/Time Associated Comments Diagnosis US PELVIC Routine 10/19/2019 3:34 PM Abnormal uterine Resul ts for this TRANSABDOMINAL AND CDT bleeding procedure are in TRANSVAGINAL the results section. documented in this encounter Results US Pelvic Complete with Transvaginal (10/19/2019 3:34 PM CDT) Component Value Ref Test Analysis Performed At [facility] Range Method Time Signature Radiologist Malpositioned RADIOLOGY flags intrauterine RESULTS device Anatomical Region Laterality Modality Abdomen/Pelvis Ultrasound Specimen (Source) Anatomical Location Collection Method / Collectio n Time Received Time / Laterality Volume Impressions 10/19/2019 4:52 PM CDT IMPRESSION: 1. Myometrial heterogeneity and enlargem ent suggests adenomyosis. 2. Malpositioned, low lying intrauterine device within the endocervical canal. [Consider Follow Up: Malpositioned intra uterine device] This report will be copied to the [facility] to ensure a provider acknowledges the finding. I have personally reviewed the examinati on and initial interpretation and I agree with the findings. MARIANNE MAHAJAN DO Narrative 10/19/2019 4:52 PM CDT EXAMINATION: US PELVIC COMPLETE WITH TRANSVAGINAL, 10/19/2019 3:34 PM COMPARISON: None. HISTORY: Abnormal uterine bleeding TECHNIQUE: The pelvis was scanned in sta ndard fashion with transabdominal and transvaginal transduc er(s) using both ye scale and color Doppler techniques. FINDINGS The uterus measures 9.1 x 4.8 x 7.0 cm, and there is no evidence of a focal fibroid. ??The endometrium is with in normal limits and measures 5 mm. An IUD is low lying within the endoc ervical canal. There is diffuse heterogeneous echotexture of the myometrium with asymmetric globular enlargement of the anterior amy rine body. There is no free fluid in the pelvis. The right ovary measures 3.3 x 2.3 x 3.1 cm and the left ovary measures 3.0 x 2.0 x 2.2 cm. There is no adnexal mass. There is normal blood flow to the ovaries. Procedure Note Marianne Mahajan, - 10/19/2019For matting of this note might be different from the original. EXAMINATION: US PELVIC COMPLETE WITH TRA NSVAGINAL, 10/19/2019 3:34 PM COMPARISON: None. HISTORY: Abnormal uterine bleeding TECHNIQUE: The pelvis was scanned in sta ndard fashion with transabdominal and transvaginal transduc er(s) using both ye scale and color Doppler techniques. FINDINGS The uterus measures 9.1 x 4.8 x 7.0 cm, and there is no evidence of a focal fibroid. The endometrium is within normal limits and measures 5 mm. An IUD is low lying within the endoc ervical canal. There is diffuse heterogeneous echotexture of the myometrium with asymmetric globular enlargement of the anterior amy rine body. There is no free fluid in the pelvis. The right ovary measures 3.3 x 2.3 x 3.1 cm and the left ovary measures 3.0 x 2.0 x 2.2 cm. There is no adnexal mass. There is normal blood flow to the ovaries. IMPRESSION: 1. Myometrial heterogeneity and enlargem ent suggests adenomyosis. 2. Malpositioned, low lying intrauterine device within the endocervical canal. [Consider Follow Up: Malpositioned intra uterine device] This report will be copied to the [facility] to ensure a provider acknowledges the finding. I have personally reviewed the examinati on and initial interpretation and I agree with the findings. MARIANNE MAHAJAN, Jillian Dubois APRN FIELD EXAMINER IMG US ORDERABLES documented in this encounter Visit Diagnoses Diagnosis Abnormal uterine bleeding Unspecified disorder of menstruation and other abnormal bleeding from female genital tract documented in this encounter Additional Health Concerns Assessment Noted Time PHQ-9 Depression Total Score: 0 04/06/2019 1:16 PM STATISTICS TUTOR documented as of this encounter Care Teams Diabetes Clinical Manager Relationship Specialty Start Date End Date Nelda Peña APRN PCP - General Nurse Practitioner 02/02/18 [facility] [address] [id number] Jose Lopez OD MD Optometry 03/04/18 Jillian Dubois, Nurse Practitioner Nurse Practitioner 07/30 SHAW FIELD EXAMINER [facility] [address] [place] [address] Nelda Peña APRN Assigned PCP 08/19/1903/[address] [place] [address] documented as of this encounter
--- OUTSIDE RECORDS SUMMARY | 2022-02-19 14:28 | XMS_ITS | Encounter Summary ---
:1980 Author Organization [place] Address [address] [place] [address] Care Team Providers Name Role Phone Nelda Peña APRN [facility] Primary Care Provider Jose Lopez OD Unavailable Jillian Dubois APRN [facility] Unavailable [phone] Nelda Peña APRN [facility] Unavailable [phone] Reason for Referral (Routine) - Closed Specialty Diagnoses / Procedures Referred By Contact Refer red To Contact Diagnoses Abnormal uterine bleeding (AUB) Seda Moy MD [address] [facility] [address] [place], [place] [address] Referral ID Status Reason Start Date Expiration Date Visits Requ ested Visits Authorized [id number] Closed 11/03/2019 11/02/2020 1 1 Reason for Visit Reason Comments Consult Hysterectomy consult, IUD re moval Encounter Details Date Type Department Care Team Description 11/02/2019 Office Visit [facility] Seda Moy mal uterine [facility] MD Jai bleeding (AUB) [place] [address] [place] (Primary Dx) [address] [employer] [place], [place] Bldg [facility] [address] [id number] [address] [place], [place] (Work) [address] [phone] Social History Tobacco Use Types Packs/Day Years [...] at Date Recorded Female 05/08/2020 12:57 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 documented as of this encounter Last Filed Vital Signs Vital Sign Reading Time Taken Comments Blood Pressure 125/74 11/02/2019 11:00 AM CDT Pulse 106 11/02/2019 11:00 AM CDT Temperature - - Respiratory Rate - - Oxygen Saturation - - Inhaled Oxygen Concentration - - Weight 106.8 kg (235 lb 6.4 oz) 11/02/2019 11:00 AM CDT Height 157.5 cm (5' 2) 11/02/2019 11:00 AM CDT Body Mass Index 43.06 11/02/2019 11:00 AM CDT documented in this encounter Progress Notes Seda Moy MD - 11/02/2019 10:45 AM CDT SUBJECTIVE Tamiko Méndez is a 38 year old , here for discussion regarding hysterectomy and IUD removal. Regarding IUD, patient had heavy bleeding in May which resolved initially. Had another episode of heavy bleeding for 3 weeks in August followed by another 3 week episode in September. Patient had US and IUD was found to be malpositioned - low-lying in cervix. Recommended removal. Regarding hysterectomy, patient has a long history of painful periods with large blood clots the size of a finger or golf ball. Clots are painful to pass and patient has to bear down in order to pass them. Otherwise bleeding itself is not heavy. Patient has significant cramping as well. She has tried various control methods which she has not tolerated due to severe mood changes. In particular, she tried the depo shot 2 years ago which improved the bleeding, but caused suicidal ideation and wasthen stopped. Patient previously had the IUD in place a few years ago, but it was expelled and patient was shortly after diagnosed with adenomyosis. She tried the IUD again last August with the minipill for spotting. It helped her bleeding significantly until it was malpositioned. Patient also reports significant PMS symptoms prior to her menses. LMP was 09/28 and lasted 3 weeks. Hgb at this time was 12.3. This period was different from the others as patient had full body aches, significant cramping, breast tenderness, and fatigue. This has never happened prior to this. These symptoms have now resolved. Mood currently is okay, though she feels more grumpy than usual and feels that her attention is poor. Patient has no desire for future pregnancies and would like to proceed with a hysterectomy. She would like to have surgery in March or the spring. Patient has T1DM on Tresiba and Humalog. Patient states her sugars run high. Her Hgb A1C in March was 11.4. Discussed that we would need to get her T1DM under control prior to surgery with a Hgb A1C of at least < 8. Patient was agreeable and plans to schedule visit with her clam dredge boat captain and loan associate to bring this under control. Gynecologic History Contraception: IUD LMP: 09/29/2019, lasted 3 weeks, heavy with many clots Obstetric History OB History Para Term AB Living 1 0 0 0 1 0 SAB TAB Ectopic Multiple Live Births 0 0 0 0 0 # Outcome Date GA Lbr Chu/2nd Weight Sex Delivery Anes PTL Lv 1 AB Past Medical History Past Medical History: Diagnosis Date ??? Acne cystica ??? Adenomyosis ??? Asthma ??? Depression ??? Dysmenorrhea ??? H/O seasonal allergies ??? Type I (juvenile type) diabetes mellitus without mention of complication, not stated as uncontrolled 1982 age 10 months Past Surgical History Past Surgical History: Procedure Laterality Date ? ? INDUCED ABORTN BY D&C ??? C ORAL SURGERY PROCEDURE ??? EXTRACTION(S) DENTAL ??? LASER SURGERY OF EYE Left diabetic retinopathy Medications Current Outpatient Medications Medication ??? augmented betamethasone dipropionate (DIPROLENE-AF) 0.05 % external cream ??? Calcium Carb-Cholecalciferol (CALCIUM 500+D PO) ??? cetirizine (ZYRTEC) 10 MG tablet ??? citalopram (CELEXA) 40 MG tablet ??? citalopram (CELEXA) 40 MG tablet ??? Continuous Blood Gluc Pattern Changer And Repairer (FREESTYLE LEATHA 14 DAY READER) MARY ??? Continuous Blood Gluc Sensor (FREESTYLE LEATHA 14 DAY SENSOR) MISC ??? Continuous Blood Gluc Sensor (FREESTYLE LEATHA 14 DAY SENSOR) MISC ??? Digestive Enzymes (PAPAYA AND ENZYMES PO) ??? insulin aspart (NOVOLOG VIAL) 100 UNITS/ML vial ??? Insulin Degludec (TRESIBA) 100 UNIT/ML SOLN ??? insulin syringe 31G X 5/16 0.5 ML MISC ??? LORazepam (ATIVAN) 0.5 MG tablet ??? multivitamin w/minerals (MULTI-VITAMIN) tablet ??? norethindrone (MICRONOR) 0.35 MG tablet ??? OMEPRAZOLE PO ??? spironolactone (ALDACTONE) 100 MG tablet ??? levonorgestrel (MIRENA) 20 MCG/24HR IUD ??? tretinoin (RETIN-A) 0.025 % external cream No current facility-administered medications for this visit. Allergies Allergies Allergen Reactions ? ? Hay Fever & [A.R.M.] Stuffiness, watery eyes ??? No Clinical Screening - See Comments Unknown Social History Social History Tobacco Use ??? Smoking status: Never Smoker ??? Smokeless tobacco: Never Used Substance Use Topics ??? Alcohol use: Yes ??? Drug use: None Family History Family History Problem Relation Age of Onset [...] ??? Macular Degeneration No family hx of No family history of uterine, ovarian, breast, or colon cancer. Review of Systems ROS: 10 point ROS neg other than the symptoms noted above in the HPI. OBJECTIVE BP 125/74 (BP Location: Right arm, Patient Position: Chair) Pulse 106 Ht 1.575 m (5' 2) Wt 106.8 kg (235 lb 6.4 oz) No BMI 43.06 kg/m?? BMI: Body mass index is 43.06 kg/m??. General: Alert, no distress Head: Normocephalic, without obvious abnormality Lungs: No increased work in breathing Heart: Well perfused Abdomen: Soft, non-tender, non-distended Pelvic: -nefg -bladder wnl, well supported -vagina normal without discharge -cervix normal in appearance, no masses -anus wnl Extremities: normal ? ASSESSMENT Tamiko Méndez is a 38 year old , here for discussion about hysterectomy due to dysmenorrhea and large clots. IUD removal Patient placed in dorsal lithotomy position. Speculum placed and cervix visualized. IUD strings visualized and grasped with ring forceps. IUD removed intact. PLAN Dysmenorrhea - IUD removed today due to malposition - Will prescribe higher dose progesterone pill - If bleeding is too heavy, will discuss other options such as nexplanon or reinserting IUD until surgery Hysterectomy discussion - Indication: dysmenorrhea with large clots, does not tolerate other BC methods- offered alternativeoption while she is waiting for surgery. Did not feel micronor was beneficial, will try norethindrone daily. - Discussed risks/benefits of hysterectomy - Will need blood sugars under better control prior to surgery. Plan to meet with endocrinology and loan associate - No history of prior abdominal surgeries - Would be good candidate for robotic surgery- reviewed surgery with Dr. Palafox. Orders placed. - Would like to schedule in March or early spring. RTC for endometrial biopsy and further review of surgery when procedure scheduled. Heidi Perez MD 11/02/2019 12:00 PM Appreciate note by Dr. Perez. Patient has been seen and examined by me with the resident, agree with above note. I was present for IUD removal. Seda Myo MD 8:11 AM documented in this encounter Nursing Notes Dat Delgado CMA - 11/02/2019 10:45 AM CDT Chief Complaint Patient presents with ??? Consult Hysterectomy consult, IUD removal See ELIEZER Delgado 11/02/2019 documented in this encounter Plan of Treatment Upcoming Encounters Date Type Specialty Care Team Description 04/04/2022 Office Visit welder/fitter Kaela Dubois APRN [facility] [address] [place] [address] (Wo rk) 04/23/2022 Virtual Visit Endocrinology Lottie Cedillo PA-C [address] [place], [place] [address] (Wo rk) Scheduled Referrals Name Type Priority Associated Diagnoses Order S chedule PAC Visit Referral (For Referral Routine Abnormal uterine Ordered: 11/03/2019 [facility] Only) bleeding (AUB) documented as of this encounter Visit Diagnoses Diagnosis Abnormal uterine bleeding (AUB) - Primar y documented in this encounter Additional Health Concerns Assessment Noted Time PHQ-9 Depression Total Score: 0 04/06/2019 1:16 PM AIR CONDITIONING MECHANIC documented as of this encounter Care Teams Oracle Soa Developer Relationship Specialty Start Date End Date Nelda Peña, TUB OPERATOR PCP - General Nurse Practitioner 02/02/18 [facility] [address] [facility] [address] [place] [address] Jose Lopez OD MD Optometry 03/04/18 Jillian Dubois, Nurse Practitioner Nurse Practitioner 07/30 TUB OPERATOR [facility] [address] [place] [address] Nelda Peña, TUB OPERATOR Assigned PCP 08/19/1903/19 [facility] [address] [facility] [address] [place] [address] documented as of this encounter
--- OUTSIDE RECORDS SUMMARY | 2022-02-19 14:28 | XMS_ITS | Encounter Summary ---
:1980 Author Organization [place] Address [address] [place] [address] Care Team Providers Name Role Phone [place] Nelda Roy GALLERY OR MUSEUM GUIDE CHANGE CONTROL ANALYST Primary Care Provider [phone] Jose Lopez OD Unavailable Jillian Dubois GALLERY OR MUSEUM GUIDE CHANGE CONTROL ANALYST Unavailable [phone] Reason for Visit Reason Onset Date Comments Derm Problem 07/12/2019 Acne vulgaris - Sydnee mcgowan states she has seen improvement overall with the 100 mg spirinolactone. She has concerns about under her nose and o n her hand. 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 Your findings, instructions and follow-up plan are as follows: - hand dermatitis: apply steroid ointment to the rash on the right hand 2 times a day until resolved, apply Neutrogena hand cream throughout the day especially after wash hands - irritant dermatitis on the face: apply hydrocortisone 2.5% cream twice daily for 1-2 weeks until improved, avoid tretinoin to this area, recommend only using cerave or vanicream or cetaphil moisturizers - acne: continue spironolactone and tretinoin cream When should I call my doctor? If you are worsening or not improving, please, contact us or seek urgent care as noted below. Who should I call with questions (adults)? [facility] (adult and pediatric): [phone] ??? [facility] (adult): [phone] ??? For urgent needs outside of business hours call the [facility] at [phone] and ask for the dermatology resident money market dealer ??? If this is a medical emergency and you are unable to reach an ER, Call 911 Who should I call with questions (pediatric)? [facility]- Pediatric Dermatology Dr. Carmel Donaldson, Dr. Enid Mancini, Dr. Elizabeth Johnson, Claudia Mcclendon, INO De La Fuente, Dr. Critsin Munoz & Dr. Jay Denton Non Urgent Nurse Triage Line; [phone]- Christy and Farheen WILLIAM Care Coordinators Sherly (Typing Section Chief/Complex Head Up Operator) [phone] If you need a prescription refill, please contact your pharmacy. Refills are approved or denied by our Physicians during normal business hours, Friday through Fridays Per office policy, refills will not be granted if you have not been seen within the past year (or sooner depending on your child's condition) Scheduling Information: Pediatric Appointment Scheduling and Call Center Radiology Scheduling- [phone] Sedation Unit Scheduling- [phone] [place] Scheduling- General [phone]; Pediatric Dermatology [phone] Main Crushed Stone Grader Services: [phone] Korean: [phone] Niuean: [phone] Hmong/Ulysses/Rubio: [phone] Preadmission Nursing Department (Fax all pre-operative paperwork to this number) For urgent matters arising during evenings, weekends, or holidays that cannot wait for normal business hours please call and ask for the Dermatology Resident On-Call to be paged. documented in this encounter Progress Notes Reny Hassan CMA - 07/12/2019 11:05 AM CDT Dermatology Rooming Note Tamiko Méndez's goals for this visit include: Chief Complaint Patient presents with ??? Derm Problem Acne vulgaris - Tamiko states she has seen improvement overall with the 100mg spirinolactone. She has concerns about under her nose and on her hand. Reny Hassan CMA Jay Salas MD - 07/12/2019 11:05 AM CDT Images from the original note were not included. [facility]: Method of transmission: Store & Forward Impression and Recommendations (Patient Counseled on the Following): 1: Hand dermatitis Discussed with patient that lesion on R dorsal hand is likely partially treated hand dermatitis. Would recommend treated with topical steroids until improved. -continue augmented betamethasone 0.05% ointment BID prn -continue Neutrogena [place] Hand Moisturizer 2: Irritant dermatitis, alar creases/nasolabial folds Photos favors irritant etiology and not acne. Will treat with low potency topical steroid and advised patient to avoid applying retinoids to this area. -apply hydrocortisone 2.5% cream BID x 1-2 weeks until improved -recommend cerave or vanicream or cetaphil moisturizer only 3. Acne vulgaris Improved on spironolactone. -continue spironolactone 100 mg daily -continue tretinoin 0.025% cream nightly, avoid nasolabial fold area -continue clindamycin 1% solution BID prn Follow-up: Follow-up with dermatology in approximately 3 months. Earlier for new or changing lesions or rash. Staff and resident: Dr. Salas was present during the entirety of this encounter. Paulina Cárdenas MD (PGY-2) Dermatology Resident Staff Physician Comments: I evaluated any available patient photographs with the resident and I edited the assessment and levon documented in the note. I was present on the line and participated in the entire telephone call. Jay Salas MD Wearing Apparel Assembler of Dermatology Department of Dermatology [facility] Dermatology Problem List: 1. Acne vulgaris??and folliculitis -benzoyl peroxide 5% wash, spironolactone 100 mg daily, clindamycin 1% solution BID prn, tretinoin 0.025% cream 2. Hand dermatitis -betamethasone 0.05% ointment BID under occlusion 3. Irritant dermatitis, alar creases/nasolabial folds - likely secondary to retinoids -hydrocortisone 2.5% cream BID x 1-2 weeks until improved Encounter Date: Jul 12, 2019 CC: Chief Complaint Patient presents with ??? Derm Problem Acne vulgaris - Tamiko states she has seen improvement overall with the 100mg spirinolactone. She has concerns about under her nose and on her hand. History of Present Illness: I have reviewed the teledermatology information and the nursing intake corresponding to this issue. Tamiko Méndez is a 38 year old female who presents via teledermatology for follow-up of hand dermatitis and acne vulgaris. Today, patient reports that her hand dermatitis has significantly improved. She was initially using augmented betamethasone 0.05% daily for about 2 weeks and then switched to Neutrogena [place] hand cream. She has one new red raised flaky spot on her right hand that is not itchy and has not responded to the topical steroid. She has been treating the area with combination 2% salicylic acid and 10% glycolic acid pads as well. Patient's acne has also significantly improved. However, she has developed fluid-filled pustules with redness by the side of the nose. She has not been applying the tretinoin 0.025% to this area due to irritation. Taking spironolactone 100 mg every night. Did not tolerate 150 mg dose due to nausea. H as been using a variety of different moisturizers. ROS: Patient is generally feeling well today Physical Examination: General: Well-appearing female, appropriately-developed individual. Skin: Focused examination of the face and hands within the teledermatology photograph(s)* was performed. -Alar creases/nasolabial folds with erythema and small vesicles -R dorsal hand with erythematous patch/thin plaque -Rare erythematous papules and scarring on the jawline/chin -See media tab for more photos Labs: No new Past Medical History: Patient Active Problem List Diagnosis ??? 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) Past Medical History: Diagnosis Date ??? [...] History ??? Marital status: Single Spouse name: Not on file ??? Number of children: Not on file ??? Years of education: Not on file ??? Highest education level: Not on file Occupational History ??? Not on file Social Needs ??? Financial resource strain: Not on file ??? Food insecurity Worry: Not on file Inability: Not on file ??? Transportation needs Medical: Not on file Non-medical: Not on file Tobacco Use ??? Smoking status: Never Smoker ??? Smokeless tobacco: Never Used Substance and Sexual Activity ??? Alcohol use: Yes ??? Drug use: Not on file ??? Sexual activity: Yes control/protection: Condom Lifestyle ??? Physical activity Days per week: Not on file Minutes per session: Not on file ??? Stress: Not on file Relationships ??? Social connections Talks on phone: Not on file Gets together: Not on file Attends sabianist service: Not on file Active member of club or organization: Not on file Attends meetings of clubs or organizations: Not on file Relationship status: Not on file ??? Intimate partner violence Fear of current or ex partner: Not on file Emotionally abused: Not on file Physically abused: Not on file Forced sexual activity: Not on file Other Topics Concern ??? Not on file Social History Narrative Works FT Lives in the [facility]. Family History: Family History Problem Relation Age [...] dipropionate (DIPROLENE-AF) 0.05 % external cream ??? cetirizine (ZYRTEC) 10 MG tablet ??? citalopram (CELEXA) 40 MG tablet ??? citalopram (CELEXA) 40 MG tablet ??? CLARITIN 10 MG OR TABS ??? Continuous Blood Gluc Ironing Worker (FREESTYLE LEATHA 14 DAY READER) MARY ??? Continuous Blood Gluc Sensor (FREESTYLE LEATHA 14 DAY SENSOR) MISC ??? Continuous Blood Gluc Sensor (FREESTYLE LEATHA 14 DAY SENSOR) MISC ??? Digestive Enzymes (PAPAYA AND ENZYMES PO) ??? esomeprazole (NEXIUM) [address] capsule ??? insulin aspart (NOVOLOG VIAL) 100 UNITS/ML vial ??? Insulin Degludec (TRESIBA) 100 UNIT/ML SOLN ??? insulin syringe 31G X 516 0.5 ML MISC ??? levonorgestrel (MIRENA) 20 MCG/24HR IUD ??? LORazepam (ATIVAN) 0.5 MG tablet ??? norethindrone (MICRONOR) 0.35 MG tablet ??? spironolactone (ALDACTONE) 50 MG tablet ??? tretinoin (RETIN-A) 0.025 % external cream No current facility-administered medications for this visit. Allergies Allergen Reactions ? ? Hay Fever & [A.R.M.] Stuffiness, watery eyes ??? No Clinical Screening - See Comments Unknown Teledermatology information: - Location of patient: Home - Patient presented as: return - Location of teledermatologist: ([facility] ) - Reason teledermatology is appropriate: of National Emergency Regarding Coronavirus disease (COVID 19) Outbreak - Image quality and interpretability: acceptable - Physician has received verbal consent for a Video/Photos Visit from the patient? Yes - In-person dermatology visit recommendation: no - Date of images: 07/12/19 - Service start time: 11:06AM - Service end time: 11:26AM - Date of report: 07/12/19 documented in this encounter Plan of Treatment Upcoming Encounters Date Type Specialty Care Team Description 04/04/2022 Office Visit master dyer Kaela Dubois, GALLERY OR MUSEUM GUIDE [facility] [address] [place] [address] (Wo rk) 04/23/2022 Virtual Visit Endocrinology Lottie Cedillo PA-C [address] [place], [place] [address] (Wo rk) documented as of this encounter Visit Diagnoses Diagnosis Irritant dermatitis - Primary Contact dermatitis and other eczema, due to unspecified cause Acne vulgaris Other acne documented in this encounter Additional Health Concerns Assessment Noted Time PHQ-9 Depression Total Score: 0 04/06/2019 1:16 PM TYPE CUTTER documented as of this encounter Care Teams Copper Plate Printer Relationship Specialty Start Date End Date Nelda Peña, GALLERY OR MUSEUM GUIDE PCP - General Nurse Practitioner 02/02/[address] [place], [place] [address] Jose Lopez OD MD Optometry 03/04/18 Jillian Dubois, Nurse Practitioner Nurse Practitioner 07/30 GALLERY OR MUSEUM GUIDE [facility] [address] [place], [place] [address] documented as of this encounter
--- OUTSIDE RECORDS SUMMARY | 2022-02-19 14:28 | XMS_ITS | Encounter Summary ---
:1980 Author Organization [place] Address [address] [facility] [place] [address] Care Team Providers Name Role Phone Nelda Peña APRN INTERNIST MEDICAL DOCTOR MD Primary Care Provider Jose Lopez OD Unavailable Jillian Dubois APRN INTERNIST MEDICAL DOCTOR MD Unavailable [phone] Nelda Peña APRN INTERNIST MEDICAL DOCTOR MD Unavailable [phone] Reason for Visit Reason Onset Date Comments Schedule Surgery 2019 Encounter Details Date Type Department Care Team Description 2019 Telephone [facility] Women's Karlene Fatima Schedule Surgery [facility] [place] [address] Professional Bldg [facility] [address] [place], [place] [phone] Social History Tobacco Use [...] at Date Recorded Female 05/08/2020 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 documented as of this encounter Miscellaneous Notes Telephone Encounter - Isabel Fatima - 2019 9:56 AM CDT lvm for patient to call surgery scheduling. documented in this encounter Plan of Treatment Upcoming Encounters Date Type Specialty Care Team Description 04/04/2022 Office Visit fermenting cellars supervisor Kaela Dubois APRN [facility] SP ECIALISTS [address] [place], [place] [phone] (Wo rk) 04/23/2022 Virtual Visit Endocrinology Lottie Cedillo PA-C [address] [place], [place] [address] (Wo rk) documented as of this encounter Visit Diagnoses Not on filedocumented in this encounter Additional Health Concerns Assessment Noted Time PHQ-9 Depression Total Score: 0 04/06/2019 1:16 PM FRAME POLISHER documented as of this encounter Care Teams Archival Records Clerk Relationship Specialty Start Date End Date Nelda Peña APRN PCP - General Nurse Practitioner 02/02/18 [facility] 420 [facility] 741 [place] [address] Jose Lopez OD MD Optometry 03/04/18 Jillian Dubois, Nurse Practitioner Nurse Practitioner 07/30 LOCK TENDER [facility] [address] [place] [address] Nelda Peña, LOCK TENDER Assigned PCP 08/19/1903/19 INTERNIST MEDICAL DOCTOR MD [address] [place] [address] [address] [place] [address] documented as of this encounter
--- OUTSIDE RECORDS SUMMARY | 2022-02-19 14:28 | XMS_ITS | Encounter Summary ---
:1980 Author Organization [place] Address [address] [place] [address] Care Team Providers Name Role Phone Nelda Peña APRN [facility] Primary Care Provider [phone] Jose Lopez OD Unavailable Jillian Dubois APRN PLASMA TABLE OPERATOR Unavailable [phone] Nelda Peña APRN PLASMA TABLE OPERATOR Unavailable [phone] Encounter Details Date Type Department Care Team Description 12/07/2019 Travel Social History Tobacco Use Types Packs/Day [...] at Date Recorded Female 05/08/2020 12:57 PM INDUSTRIAL MECHANIC COVID-19 Exposure Response Date Recorded In the last month, have you been in contact with No / Unsure 12/07/2019 10:44 AM CDT someone who was confirmed or suspected to have Coronavirus / COVID-19? documented as of this encounter Plan of Treatment Upcoming Encounters Date Type Specialty Care Team Description 04/04/2022 Office Visit drilling manager Kaela Dubois, SHAW [facility] [address] [place] [address] (Wo rk) 04/23/2022 Virtual Visit Endocrinology Lottie Cedillo , ERROL [address] [place] [phone] (Wo rk) documented as of this encounter Visit Diagnoses Not on filedocumented in this encounter Additional Health Concerns Assessment Noted Time PHQ-9 Depression Total Score: 0 04/06/2019 1:16 PM INDUSTRIAL MECHANIC documented as of this encounter Care Teams Automotive Wholesale Parts Advisor Relationship Specialty Start Date End Date Nelda Peña APRN PCP - General Nurse Practitioner 02/02/[address] [place], [place] [address] Jose Lopez OD MD Optometry 03/04/18 Jillian Dubois, Nurse Practitioner Nurse Practitioner 07/30 CLINICAL PROGRAMMER [facility] [address] [place], [place] [phone] eNlda Peña APRN Assigned PCP 08/19/1903/[address] [place], [place] [phone] documented as of this encounter
--- OUTSIDE RECORDS SUMMARY | 2022-02-19 14:28 | XMS_ITS | Encounter Summary ---
:1980 Author Organization [place] Address [address] [place] [address] Care Team Providers Name Role Phone Nelda Peña APRN IMPROVEMENT ANALYST Primary Care Provider Jose Lopez OD Unavailable Jillian Dubois APRN IMPROVEMENT ANALYST Unavailable [phone] Nelda Peña APRN IMPROVEMENT ANALYST Unavailable [phone] Reason for Visit Reason Onset Date Comments Video Visit Type 1 Diabetes Erroneous encounter-disregard 12/07/2019 Encounter Details Date Type Department Care Team Description 12/07/2019 Virtual Visit Lottie Cope Type 1 diabe chaz mellitus with complications (H) (Primary Dx); Endocrinology C, ERROL ERRONEOUS ENCOUNTER--DISREGARD 9[address] [facility] 909 [facility] [address]rd [place], [place] [address] Social History Tobacco Use Types Packs/Day [...] at Date Recorded Female 05/08/2020 12:57 PM MAGNETIC TAPE TYPEWRITER OPERATOR COVID-19 Exposure Response Date Recorded In the last month, have you been in contact with No / Unsure 12/07/2019 10:44 AM CDT someone who was confirmed or suspected to have Coronavirus / COVID-19? documented as of this encounter Progress Notes Lottie Cedillo PA-C - 12/07/2019 1:00 PM CDT Tamiko Méndez is a 38 year old [...] you like to obtain your AVS? MyChart Will anyone else be joining your video visit? No Video-Visit Details Type of service: Video Visit Video Start Time: 6:30 PM Pt sent My Chart requesting cancel appt. This encounter was opened in error. Please disregard. NOTE VERY HIGH BG and recent elevated A1C - Letter and VM sent advising reschedule. 11/22/2019 380, 326, 318, 352, 302, 269 ?? 11/23/2019 290, 270, 205 ?? 11/24/2019 333, 387, 261 ?? 11/25/2019 265, 226, 381, 127 ?? 11/26/2019 ~ 11/27/2019 ~ ?? 11/28/2019 262 ?? 11/29/2019 429 ?? 11/30/2019 ~ ?? 12/01/2019 380 ?? 12/02/2019 ~ ?? 12/03/2019 346, 313, 400 ?? 12/04/2019 347 ?? 12/05/2019 291 ?? 12/06/2019 393, 235 ?? *Questions about: closed loop CGM & Pump lowering A1c for hysterectomy patient started [employer]- questions about that. Criselda Mcleod MA - 12/07/2019 1:00 PM CDTSummary: Glucose Readings 11/22/2019 380, 326, 318, 352, 302, 269 11/23/2019 290, 270, 205 11/24/2019 333, 387, 261 11/25/2019 265, 226, 381, 127 11/26/2019 ~ 11/27/2019 ~ 11/28/2019 262 11/29/2019 429 11/30/2019 ~ 12/01/2019 380 12/02/2019 ~ 12/03/2019 346, 313, 400 12/04/2019 347 12/05/2019 291 12/06/2019 393, 235 *Questions about: closed loop CGM & Pump lowering A1c for hysterectomy patient started [employer]- questions about that. documented in this encounter Plan of Treatment Upcoming Encounters Date Type Specialty Care Team Description 04/04/2022 Office Visit bit sharpener operator Kaela Dubois APRN [facility] [address] [place] [address] (Wo rk) 04/23/2022 Virtual Visit Endocrinology Lottie Cedillo PA-C [address] [place] [address] (Wo rk) documented as of this encounter Results (ABNORMAL) Hemoglobin A1c (12/07/2019 10:54 AM CDT) Analysis Performed At [facility] Time Signature Hemoglobin A1C 11.9 (H) 0 - 5.6 % 12/07/2019 [place] 11:[address] [facility] Comment: Normal <5.7% Prediabetes 5.7-6.4% ??Diab etes 6.5% or higher - adopted from ADA consensus guidelines. Specimen Anatomical Collection Method Collection Time Receive d Time (Source) Location / / Volume Laterality Blood specimen 12/07/2019 10:54 0 (specimen) AM CDT 10:59 AM CDT Lottie Cedillo PA-C LAB - BLOOD ORDERABLES Performing Organization Address City/State/ZIP Code Phon e Number M [facility] [address] [place] [address] [phone] [facility] [address] [place] [address], [facility] [phone] documented in this encounter Visit Diagnoses Diagnosis Type 1 diabetes mellitus with complicati ons (H) - Primary ERRONEOUS ENCOUNTER--DISREGARD documented in this encounter Additional Health Concerns Assessment Noted Time PHQ-9 Depression Total Score: 0 04/06/2019 1:16 PM MAGNETIC TAPE TYPEWRITER OPERATOR documented as of this encounter Care Teams Counter Pocket Trimmer Relationship Specialty Start Date End Date Nelda Peña APRN PCP - General Nurse Practitioner 02/02/18 IMPROVEMENT ANALYST [address] [facility] [address] [place], [place] [address] Jose Lopez OD MD Optometry 03/04/18 Jillian Dubois, Nurse Practitioner Nurse Practitioner 07/30 STATOR PLATE WASHER [facility] [address] [place] [address] Nelda Peña, STATOR PLATE WASHER Assigned PCP 08/19/1903/19 IMPROVEMENT ANALYST 420 [facility] 741 [place] [address] documented as of this encounter
--- OUTSIDE RECORDS SUMMARY | 2022-02-19 14:28 | XMS_ITS | Encounter Summary ---
:1980 Author Organization [place] Address [facility] [place] [address] Care Team Providers Name Role Phone Nelda Peña INTERIOR DESIGN CONSULTANT CORRUGATOR HELPER Primary Care Provider [phone] Jose Lopez OD Unavailable Jillian Dubois INTERIOR DESIGN CONSULTANT CORRUGATOR HELPER Unavailable [phone] Nelda Peña INTERIOR DESIGN CONSULTANT CORRUGATOR HELPER Unavailable [phone] Seda Moy MD Unavailable [phone] Lisa Hughes MD Unavailable Jay Salas MD Unavailable Jay Salas MD Unavailable Nelda Peña APRN CORRUGATOR HELPER Unavailable [phone] Nawaf Morocho MD Unavailable Nawaf Morocho MD Unavailable Lottie Cedillo PA-C Unavailable Azeem Lindsey INTERIOR DESIGN CONSULTANT CORRUGATOR HELPER Unavailable [phone] Teodoro Joaquin MD Unavailable [phone] Sherly Jillian Perkinsn INTERIOR DESIGN CONSULTANT CORRUGATOR HELPER Unavailable [phone] Mynor Barry MD Unavailable aJyne Peñanaeem Roy INTERIOR DESIGN CONSULTANT CORRUGATOR HELPER Unavailable [phone] Nawaf Morocho MD Unavailable Mynor Barry MD Unavailable Teodoro Joaquin MD Unavailable [phone] Nelda Peña INTERIOR DESIGN CONSULTANT CORRUGATOR HELPER Unavailable [phone] Reason for Visit Reason Onset Date Comments Prior Auth - Medication 11/19/2019 insulin aspart ( NOVOLOG VIAL) 100 UNITS/ML vial Not Needed Encounter Details Date Type Department Care Team Description 11/19/2019 Telephone [facility] Lottie Plata, Prior Auth - Medication [address] [place] [address] [place] (insulin aspart [address]rd Floor [address] [place] [address] (NOVOLOG VIAL) [address] [place], [place] UNITS/ML vial Not [phone] 17035 Needed) [phone] Social History Tobacco Use Types Packs/Day Years [...] at Date Recorded Female 05/08/2020 12:57 PM BAG MACHINE OPERATOR COVID-19 Exposure Response Date Recorded In the last month, have you been in contact with No / Unsure 11/02/2019 10:36 AM CDT someone who was confirmed or suspected to have Coronavirus / COVID-19? documented as of this encounter Miscellaneous Notes Telephone Encounter - Rocío Damon - 11/19/2019 2:37 PM CDT This does not need a PA. Pharmacy is billing twiDAQ which isn't new insurance. Cost of thevials is $141 for 4 vials (73 day supply). They are filling the Rx and will contact patient when ready. Telephone Encounter - Rocío Damon - 11/19/2019 2:18 PM CDT Recreated encounter from previous incorrect encounter type (MyC Medical Advice) documented in this encounter Plan of Treatment Upcoming Encounters Date Type Specialty Care Team Description 04/04/2022 Office Visit senior production planner Kaela Dubois, SHAW CORRUGATOR HELPER [facility] SP ECIALISTS [address] [place], [place] [address] (Wo rk) 04/23/2022 Virtual Visit Endocrinology Lottie Cedillo , PAFacundoC [address] [place], [place] [address] (Wo rk) documented as of this encounter Visit Diagnoses Not on filedocumented in this encounter Additional Health Concerns Infection Onset Date Last Indicated Resolved Time Rule Out COVID-19 02/08/2022 02/08/2022 02/10/2022 1:3 0 PM BAG MACHINE OPERATOR Assessment Noted Time PHQ-9 Depression Total Score: 0 04/06/2019 1:16 PM BAG MACHINE OPERATOR documented as of this encounter Care Teams Hot Mill Worker Relationship Specialty Start Date End Date Nelda Peña, PCP - General Nurse Practitioner 02/02/18 INTERIOR DESIGN CONSULTANT CORRUGATOR HELPER 420 [facility] 741 [place], [place] [address] Jose Lopez OD MD Optometry 03/04/18 Jillian Dubois Nurse Practitioner Nurse Practitioner 08/17/18 SHAW [place] CORRUGATOR HELPER [facility] [address] [place], [place] [address] Nelda Peña, Assigned PCP 03/12/20 03/03/21 INTERIOR DESIGN CONSULTANT CORRUGATOR HELPER 420 [facility] 741 [place], [place] [address] Seda Moy Assigned OBGYN Provider 01/21/20 01/27/21 MD Jai [address] [place] [address] Lisa Hughes, Assigned Endocrinology 01/21/20 06/13/20 MD Provider 9 [place] [address] Jay Salas MD Assigned Pediatric 01/21/20 04/30/20 9 [facility] [place] [address] Jay Salas MD Assigned Surgical 01/21/20 04/29/20 [address] [place], [place] [address] Nelda Peña, Assigned PCP 08/19/19 03/11/20 INTERIOR DESIGN CONSULTANT CORRUGATOR HELPER 420 [facility] 741 [place], [place] [address] Nawaf Morocho MD Dermatology 04/24/20 [facility] [address] [address] Nawaf Morocho, Assigned Surgical 04/30/[address] [address] Lottie Cedillo, Assigned Endocrinology 06/14/20 PA-C Provider [address] [place] [phone] Azeem Lindsey, Assigned Behavioral 06/18/20 INTERIOR DESIGN CONSULTANT [facility] Provider [address] [place] [address] Liz Kirkland, Assigned Surgical 12/10/20 MD Teodoro Provider [address] [place] [address] Jillian Dubois Assigned OBGYN Provider 01/28/21 SHAW Infante [facility] [address] [place] [address] Mynor Barry, Assigned PCP 03/04/21 04/07/21 [place] [address] Nelda Peña, Assigned PCP 04/08/21 08/31/21 INTERIOR DESIGN CONSULTANT CORRUGATOR HELPER [address] [place] [address] 7[address] [place] [address] Nawaf Morocho, Assigned Surgical 04/29/[address] [address] Mynor Barry, Assigned PCP 09/01/21 10/05/21 [place] [address] Liz Kirkland, Assigned Surgical 10/27/21 MD Teodoro Provider [address] [place] [address] Nelda Peña, Assigned PCP 10/06/21 INTERIOR DESIGN CONSULTANT CORRUGATOR HELPER 420 [facility] 741 [place] [address] documented as of this encounter
--- OUTSIDE RECORDS SUMMARY | 2022-02-19 14:28 | XMS_ITS | Encounter Summary ---
:1980 Author Organization [place] Address [address] [place] [address] Care Team Providers Name Role Phone Nelda Peña APRN [facility] Primary Care Provider [phone] Jose Lopez OD Unavailable Jillian Dubois APRN CASINO FLOOR WALKER Unavailable [phone] Nelda Peña APRN CASINO FLOOR WALKER Unavailable [phone] Encounter Details Date Type Department Care Team Description 11/02/2019 Travel Social History Tobacco Use Types Packs/Day [...] at Date Recorded Female 05/08/2020 12:57 PM DOUBLE BACKER COVID-19 Exposure Response Date Recorded In the last month, have you been in contact with No / Unsure 11/02/2019 10:36 AM CDT someone who was confirmed or suspected to have Coronavirus / COVID-19? documented as of this encounter Plan of Treatment Upcoming Encounters Date Type Specialty Care Team Description 04/04/2022 Office Visit early morning babysitter Kaela Dubois, SHAW [facility] [address] [place] [address] (Wo rk) 04/23/2022 Virtual Visit Endocrinology Lottie Cedillo , ERROL [address] [place] [phone] (Wo rk) documented as of this encounter Visit Diagnoses Not on filedocumented in this encounter Additional Health Concerns Assessment Noted Time PHQ-9 Depression Total Score: 0 04/06/2019 1:16 PM DOUBLE BACKER documented as of this encounter Care Teams Insurance Coordinator Relationship Specialty Start Date End Date Nelda Peña APRN PCP - General Nurse Practitioner 02/02/[address] [place], [place] [address] Jose Lopez OD MD Optometry 03/04/18 Jillian Dubois, Nurse Practitioner Nurse Practitioner 07/30 SUPERVISOR BLAST [employer] [facility] [address] [place], [place] [phone] Nelda Peña APRN Assigned PCP 08/19/1903/[address] [place], [place] [phone] documented as of this encounter
--- OUTSIDE RECORDS SUMMARY | 2022-02-19 14:28 | XMS_ITS | Encounter Summary ---
:1980 Author Organization [place] Address [address]50 [facility] [place] [address] Care Team Providers Name Role Phone Nelda Peña APRN FORMING TUBE SELECTOR Primary Care Provider Jose Lopez OD Unavailable Jillian Dubois APRN FORMING TUBE SELECTOR Unavailable [phone] Nelda Peña APRN FORMING TUBE SELECTOR Unavailable [phone] Reason for Visit Reason Onset Date Comments Schedule Surgery 11/12/2019 Encounter Details Date Type Department Care Team Description 11/12/2019 Telephone [facility] Women's Karlene Fatima Schedule Surgery Clinic [place] 606 [facility] Professional Bldg [facility] [address] [place], [place] [phone] Social History Tobacco Use [...] at Date Recorded Female 05/08/2020 12:57 PM FINANCIAL ANALYSIS ADVISOR COVID-19 Exposure Response Date Recorded In the last month, have you been in contact with No / Unsure 11/02/2019 10:36 AM CDT someone who was confirmed or suspected to have Coronavirus / COVID-19? documented as of this encounter Miscellaneous Notes Telephone Encounter - Isabel Fatima - 11/12/2019 9:53 AM CDT lvm for patient to call surgery scheduling. documented in this encounter Plan of Treatment Upcoming Encounters Date Type Specialty Care Team Description 04/04/2022 Office Visit vice president safety Kaela Dubois APRN [facility] SP ECIALISTS [address] [place], [place] [phone] (Wo rk) 04/23/2022 Virtual Visit Endocrinology Lottie Cedillo PA-C [address] [place], [place] [address] (Wo rk) documented as of this encounter Visit Diagnoses Not on filedocumented in this encounter Additional Health Concerns Assessment Noted Time PHQ-9 Depression Total Score: 0 04/06/2019 1:16 PM FINANCIAL ANALYSIS ADVISOR documented as of this encounter Care Teams Third Hand Relationship Specialty Start Date End Date Nelda Peña APRN PCP - General Nurse Practitioner 02/02/18 [facility] 420 [facility] 741 [place] [address] Jose Lopez OD MD Optometry 03/04/18 Jillian Dubois, Nurse Practitioner Nurse Practitioner 07/30 MAIL PROCESSING MACHINE OPERATOR [facility] [address] [place] [address] Nelda Peña, MAIL PROCESSING MACHINE OPERATOR Assigned PCP 08/19/1903/19 FORMING TUBE SELECTOR [address] [place] [address] [address] [place] [address] documented as of this encounter
--- OUTSIDE RECORDS SUMMARY | 2022-02-19 14:28 | XMS_ITS | Encounter Summary ---
:1980 Author Organization [place] Address [facility]0 [place] [address] Care Team Providers Name Role Phone Nelda Peña APRN BALE STACKER Primary Care Provider Jose Lopez OD Unavailable Jillian Dubois APRN BALE STACKER Unavailable [phone] Nelda Peña APRN BALE STACKER Unavailable [phone] Reason for Visit Reason Comments Medication Refill citalopram (CELEXA) 40 MG ta edgardo Encounter Details Date Type Department Care Team Description 12/28/2019 Refill [facility] Primary Care Nelda Peña, Medication Refill Clinic NEURO PSYCH SALES SPECIALIST BALE STACKER (citalopram (CELEXA) 40 [address]09 [facility] [address] [place] [address] [facility] MG tablet) 4th Floor [address] [place], [place] [address] [phone] Social History Tobacco Use Types Packs/Day Years [...] at Date Recorded Female 05/08/2020 12:57 PM DIRECTOR OF CASINO MARKETING COVID-19 Exposure Response Date Recorded In the last month, have you been in contact with No / Unsure 12/07/2019 10:44 AM CDT someone who was confirmed or suspected to have Coronavirus / COVID-19? documented as of this encounter Miscellaneous Notes Telephone Encounter - Kathy Zavala RN - 12/31/2019 12:54 PM CDT citalopram (CELEXA) 40 MG tablet Last Written Prescription Date: 06/24/19 Last Fill Quantity: 90, # refills: 1 Last Office Visit : 02/17/18 Future Office visit: None Follow-up: Return in about 3 months (around 05/20/2018 Scheduling has been notified to contact the pt for appointment. Routing refill request to provider for review/approval because: 02/15 ? documented in this encounter Plan of Treatment Upcoming Encounters Date Type Specialty Care Team Description 04/04/2022 Office Visit corporate law specialist Kaela Dubois APRN [facility] [address] [place] [address] (Maryjane pa) 04/23/2022 Virtual Visit Endocrinology Lottie Cedillo , ERROL [address] [place] [address] (Maryjane pa) documented as of this encounter Visit Diagnoses Diagnosis PMDD (premenstrual dysphoric disorder) Premenstrual tension syndromes documented in this encounter Additional Health Concerns Assessment Noted Time PHQ-9 Depression Total Score: 0 04/06/2019 1:16 PM DIRECTOR OF CASINO MARKETING documented as of this encounter Care Teams Architecture Internship Relationship Specialty Start Date End Date Nelda Peña APRN PCP - General Nurse Practitioner 02/02/18 BALE STACKER 420 [facility] 741 [place], [place] [address] Jose Lopez OD MD Optometry 03/04/18 Jillian Dubois, Nurse Practitioner Nurse Practitioner 07/30 NEURO PSYCH SALES SPECIALIST [facility] [address] [place], [place] [address] Nelda Peña APRN Assigned PCP 08/19/1903/[address] [place] [address] documented as of this encounter
--- OUTSIDE RECORDS SUMMARY | 2022-02-19 14:28 | XMS_ITS | Encounter Summary ---
:1980 Author Organization [place] Address [facility] [place] [address] Care Team Providers Name Role Phone Nelda Peña HAND TUFTER [facility] Primary Care Provider Jose Lopez OD Unavailable Jillian Dubois APRN [facility] Unavailable [phone] Reason for Visit Reason Onset Date Comments Appointment 06/24/2019 switch appointment t o a telephone visit. Encounter Details Date Type Department Care Team Description 06/24/2019 Telephone [facility] Dermatology Jay Salas, Appointment (switch [address] [place] [address] [place] appointment to a 3rd Floor [address] [place] [address] telephone visit. ) [place] [address] [id number] Social History Tobacco Use Types Packs/Day Years [...] at Date Recorded Female 05/08/2020 12:57 PM BUSINESS OPERATIONS DIRECTOR documented as of this encounter Miscellaneous Notes Telephone Encounter - aCssy Ramirez CMA - 06/24/2019 1:50 PM CDT Teledermatology Nurse Call for RETURN patients seen within the last 3 years: The patient was contacted by phone and we reviewed, Due to the coronavirus pandemic, we are callingto review your visit and offer you a teledermatology visit where you send in photos via Cloudant. These photos will be seen by an [...] like to proceed with an teledermatology because Per Dr. Salas, patient to switch to telephone visit and send in photos. . The patient understood that they may receive a call from the clinic to review additional history, may still be instructed to come to clinic even after photo review and be billed for both visits with anWI. They were told that a photo assessment does not replace an in person skin exam. The patient understood that teledermatology is not for urgent issues and would require up to 72 hours for review. Thepatient denied skin pain, fever, mucosal symptoms (lesions, blisters, sores in the mouth, nose, eyes, or genitals) IF PATIENT ENDORSES ANY OF THESE STOP AND PAGE GEOTECHNICIAN ATTENDING. IF OTHER POSSIBLY URGENT SYMPTOMS THEN PAGE PHYSICIAN YOU ARE SCHEDULING WITH OR GEOTECHNICIAN IF NO ANSWER. The patient chose to: The patient accepted a phone visit with no photos to be received. They understood they would receivea bill for this visit. They understood that even with a phone visit, the clinician may require a photo, video or in person visit for treatment. Pharmacy preference was updated. The nurse has dropped in the AVS information (For adults the phrase is umdermhteleavs and for pediatrics it is their own) for the physician to route in the AVS. The patient was told to contact the clinic if they have not received correspondence within 72 hours. documented in this encounter Plan of Treatment Upcoming Encounters Date Type Specialty Care Team Description 04/04/2022 Office Visit plating technician Kaela Dubois APRN [facility] [address] [place] [address] (Wo rk) 04/23/2022 Virtual Visit Endocrinology Lottie Cedillo PA-C [address] [place], [place] [address] (Wo rk) documented as of this encounter Visit Diagnoses Not on filedocumented in this encounter Additional Health Concerns Assessment Noted Time PHQ-9 Depression Total Score: 0 04/06/2019 1:16 PM BUSINESS OPERATIONS DIRECTOR documented as of this encounter Care Teams Director Of Psychology Relationship Specialty Start Date End Date Nelda Peña APRN PCP - General Nurse Practitioner 02/02/18 [facility] [address] [facility] [address] [place], [place] [address] Jose Lopez OD MD Optometry 03/04/18 Jillian Dubois, Nurse Practitioner Nurse Practitioner 07/30 HAND TUFTER [facility] [address] [place], [place] [phone] documented as of this encounter
--- OUTSIDE RECORDS SUMMARY | 2022-02-19 14:28 | XMS_ITS | Encounter Summary ---
:1980 Author Organization [place] Address [address] [place] [address] Care Team Providers Name Role Phone Nelda Peña APRN CORPORATE PLANNING MANAGER Primary Care Provider Jose Lopez OD Unavailable Jillian Dubois APRN CORPORATE PLANNING MANAGER Unavailable [phone] Nelda Peña APRN CORPORATE PLANNING MANAGER Unavailable [phone] Reason for Visit Reason Onset Date Comments Appointment 12/17/201912/08 CHECKOUT Encounter Details Date Type Department Care Team Description 12/17/2019 Telephone [facility] EndocrinLottie Story, Appointment (12/[address] [place] [address] PA-C CHECKOUT) [address]rd Floor [address] [place] [id number] Social History Tobacco Use Types [...] at Date Recorded Female 05/08/2020 12:57 PM WORKING SECOND HAND COVID-19 Exposure Response Date Recorded In the last month, have you been in contact with No / Unsure 12/07/2019 10:44 AM CDT someone who was confirmed or suspected to have Coronavirus / COVID-19? documented as of this encounter Miscellaneous Notes Telephone Encounter - Bridgette Portillo - 01/07/2020 12:18 PM CDT LVM x2 for pt to schedule: ?? -VIDEO VISIT NEW with CDE Maria Isabel Olvera or Stephany Roca ?? -VIDEO VISIT RETURN with Lottie Cedillo, 3 weeks from 12/08 Telephone Encounter - Bridgette Portillo - 12/17/2019 2:17 PM CDTSummary: 12/08 CHECKOUT LVM for pt to schedule: -VIDEO VISIT NEW with CDE Maria Isabel Olvera or Stephany Roca -VIDEO VISIT RETURN with Lottie Cedillo, 3 weeks from 12/08 documented in this encounter Plan of Treatment Upcoming Encounters Date Type Specialty Care Team Description 04/04/2022 Office Visit line person Kaela Dubois APRN [facility] [address] [place] [address] (Wo rk) 04/23/2022 Virtual Visit Endocrinology Lottie Cedillo PA-C [address] [place], [place] [address] (Wo rk) documented as of this encounter Visit Diagnoses Not on filedocumented in this encounter Additional Health Concerns Assessment Noted Time PHQ-9 Depression Total Score: 0 04/06/2019 1:16 PM WORKING SECOND HAND documented as of this encounter Care Teams Retail Link Analyst Relationship Specialty Start Date End Date Nelda Peña, CRAB MEAT PROCESSOR PCP - General Nurse Practitioner 02/02/18 CORPORATE PLANNING MANAGER [address] [facility] [address] [place], [place] [address] Jose Lopez OD MD Optometry 03/04/18 Jillian Dubois, Nurse Practitioner Nurse Practitioner 07/30 CRAB MEAT PROCESSOR [facility] [address] [place], [place] [address] Nelda Peña APRN Assigned PCP 08/19/1903/19 CORPORATE PLANNING MANAGER [address] [facility] [address] [place], [place] [address] documented as of this encounter
--- OUTSIDE RECORDS SUMMARY | 2022-02-19 14:28 | XMS_ITS | Encounter Summary ---
:1980 Author Organization [place] Address [facility] [place] [address] Care Team Providers Name Role Phone Nelda Peña TRANSFORMATION ARCHITECT IMPROVEMENT ANALYST Primary Care Provider [phone] Jose Lopez OD Unavailable Jillian Dubois APRN IMPROVEMENT ANALYST Unavailable [phone] Nelda Peña APRN IMPROVEMENT ANALYST Unavailable [phone] Seda Moy MD Unavailable [phone] Lisa Hughes MD Unavailable Jay Salas MD Unavailable Jay Salas MD Unavailable Nelda Peña APRN IMPROVEMENT ANALYST Unavailable [phone] Nawaf Morocho MD Unavailable Nawaf Morocho MD Unavailable Lottie Cedillo PA-C Unavailable Azeem Lindsey TRANSFORMATION ARCHITECT IMPROVEMENT ANALYST Unavailable [phone] Reason for Visit Reason Onset Date Comments Prior Auth - Medication 11/19/2019 Lantus Encounter Details Date Type Department Care Team Description 11/19/2019 Telephone [facility] Endocrinolo Naomie Farley, Prior Auth - Medication [address] [facility] (Lantus ) 3rd [place] [address] Social History Tobacco Use Types [...] at Date Recorded Female 05/08/2020 12:57 PM SENIOR 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 documented as of this encounter Miscellaneous Notes Telephone Encounter - Rocío Damon - 11/19/2019 2:35 PM CDT This does not need a PA. Pharmacy has a paid claim from [employer] for a $29 copay. Telephone Encounter - Rocío Damon - 11/19/2019 2:19 PM CDT Telephone Encounter - Naomie Estrella MA - 11/19/2019 1:14 PM CDT Prior Authorization Retail Medication Request Medication/Dose: Lantus ICD code (if different than what is on RX):E10.8 Rationale:Patient needs to manage type 1 diabetes Insurance Name:[facility] Pharmacy Information (if different than what is on RX) Name: Phone: documented in this encounter Plan of Treatment Upcoming Encounters Date Type Specialty Care Team Description 04/04/2022 Office Visit porcelain enamel repairer Kaela Dubois APRN [facility] [address] [place] [address] (Wo rk) 04/23/2022 Virtual Visit Endocrinology Lottie Cedillo PA-C [address] [place] [address] (Wo rk) documented as of this encounter Visit Diagnoses Not on filedocumented in this encounter Additional Health Concerns Assessment Noted Time PHQ-9 Depression Total Score: 0 04/06/2019 1:16 PM SENIOR JAVA WEB APPLICATION DEVELOPER documented as of this encounter Care Teams Senior Courtroom Clerk Relationship Specialty Start Date End Date Nelda Peña, PCP - General Nurse Practitioner 02/02/18 [facility] [address] [address] Jose Lopez OD MD Optometry 03/04/18 Jillian Dubois Nurse Practitioner Nurse Practitioner 08/17/18 [facility] [address] [place] [address] Nelda Peña, Assigned PCP 03/12/20 03/03/21 [facility] [address] [phone] Seda Moy Assigned OBGYN Provider 01/21/20 01/27/21 MD Jai [address] [place] [address] Lisa Hughes, Assigned Endocrinology 01/21/20 06/13/20 MD Provider [address] [place] [id number] Jay Salas MD Assigned Pediatric 01/21/20 04/30/[address] [place] [address] [place] [address] Jay Salas MD Assigned Surgical 01/21/20 04/29/[address] [place] [id number] Nelda Peña, Assigned PCP 08/19/19 03/11/20 TRANSFORMATION ARCHITECT IMPROVEMENT ANALYST 420 [facility] [address] [place], [place] [address] Nawaf Morocho MD Dermatology 04/24/[address] [phone] Nawaf Morocho, Assigned Surgical 04/30/[address] [address] Lottie Cedillo, Assigned Endocrinology 06/14/20 PA-C Provider [address] [place] [address] Azeem Lindsey, Assigned Behavioral 06/18/20 TRANSFORMATION ARCHITECT [facility] Health Provider [address] [place], [place] [address] documented as of this encounter
--- OUTSIDE RECORDS SUMMARY | 2022-02-19 14:29 | XMS_ITS | Encounter Summary ---
:1980 Author Organization [place] Address [address] [facility] [place] [address] Care Team Providers Name Role Phone Nelda Peña Kirill SQUIRES LION TAMER Primary Care Provider [phone] Jose Lopez OD Unavailable Jillian Dubois APRN, CNP Unavailable [phone] Reason for Visit Reason Onset Date Comments Refill Request 05/20/2019 celexa Encounter Details Date Type Department Care Team Description 05/20/2019 MyC Refill [facility] Jillian Dubois Ref ill Request [facility] CNP (celexa) [place] [facility] [address] [facility] [place] [facility] [address] [facility] [address] [place], [place] [address] [address] [place], [place] [phone] (Wo rk) [address] [phone] Social History Tobacco Use Types Packs/Day Years [...] at Date Recorded Female 05/08/2020 12:57 PM PACKER OPERATOR AUTOMATIC documented as of this encounter Miscellaneous Notes Telephone Encounter - Meghan Christensen RN - 05/26/2019 1:19 PM CST Received note from Jillian Dubois (copied below) authorizing short-term fill but pt to estabish care with psychiatry. Tried to reach Tamiko but received voicemail. Left message that Jillian Dubois approved a short-term refill of medication but would like you to see another provider for further refills. More information will be sent to you via N[employer]. Please call back if you would like to discuss at [phone]. Jillian Dubois APRN LION TAMER You Yesterday (7:57 AM) Irving Christianson, ? It looks like this patient was asked to see psychiatry. Can you tell if she ever went or was incontact with them? I will provide a short term refill given that she has been on this medication forquite some time, but would still recommend that she establish care with psychiatry. Sincerely, Jillian Dubois, ILA, TREASURY AGENT, WHNP ER OPERATOR AUTOMATIC Telephone Encounter - Meghan Christensen RN - 05/24/2019 1:11 PM CST Received refill request for celexa. Last in clinic 07/2018, short term supply given until pt could establish care with psychiatry. Tried to reach Tamiko but received voicemail. Left message that received refill request that shouldbe prescribed by another provider. Refill not done at this time, please call [phone] to discussif she has questions. Routed to Jillian Dubois CNP for review. ER OPERATOR AUTOMATIC documented in this encounter Plan of Treatment Upcoming Encounters Date Type Specialty Care Team Description 04/04/2022 Office Visit sales and service engineer Kaela Dubois APRN [facility] [address] [place] [address] (Wo rk) 04/23/2022 Virtual Visit Endocrinology Lottie Cedillo PA-C [address] [place] [address] (Wo rk) documented as of this encounter Visit Diagnoses Diagnosis PMDD (premenstrual dysphoric disorder) Premenstrual tension syndromes documented in this encounter Additional Health Concerns Assessment Noted Time PHQ-9 Depression Total Score: 0 04/06/2019 1:16 PM PACKER OPERATOR AUTOMATIC documented as of this encounter Care Teams Activities Therapist Relationship Specialty Start Date End Date Nelda Peña APRN PCP - General Nurse Practitioner 02/02/18 [facility] [address] [facility] [address] [place], [place] [address] Jose Lopez OD MD Optometry 03/04/18 Jillian Dubois, Nurse Practitioner Nurse Practitioner 07/30 TREASURY AGENT [facility] [address] [place] [address] documented as of this encounter
--- OUTSIDE RECORDS SUMMARY | 2022-02-19 14:29 | XMS_ITS | Encounter Summary ---
:1980 Author Organization [place] Address [facility] [place] [address] Care Team Providers Name Role Phone Nelda Peña DIGITAL SOLUTION ARCHITECT ORDER ENTRY CLERK Primary Care Provider Jose Lopez OD Unavailable Jillian Dubois APRN ORDER ENTRY CLERK Unavailable [phone] Reason for Visit Reason Onset Date Comments Orders 12/04/2018 Encounter Details Date Type Department Care Team Description 12/04/2018 Telephone [facility] Jeremy Hernandez MD Orders 909 [facility] 3rd Floor [address] [place], [place] [phone] [place], [place] [address] (Wo rk) Social History Tobacco Use Types [...] at Date Recorded Female 05/08/2020 12:57 PM HVAC ENGINEER documented as of this encounter Miscellaneous Notes Telephone Encounter - Naomie Estrella MA - 12/07/2018 11:49 AM CDT Patient will get A1C completed at appointment on 12/09 no other labs needed. Telephone Encounter - Clint Centeno - 12/04/2018 12:15 PM CDT [facility] Phone Message May a detailed message be left on voicemail: yes Reason for Call: Order(s): Other: Reason for requested: A1C labs Date needed: 12/09/18 Provider name: Leigh/Ellen Action Taken: Message routed to: [facility] Pt has an appt. on 12/09/18 and thinks she should have an A1C lab or anything else that may be needed done. If so Please enter the order and call the Pt so she can schedule. documented in this encounter Plan of Treatment Upcoming Encounters Date Type Specialty Care Team Description 04/04/2022 Office Visit high energy forming equipment operator Kaela Dubois APRN [facility] [address] [place], [place] [address] (Wo rk) 04/23/2022 Virtual Visit Endocrinology Lottie Cedillo PA-C [address] [place], [place] [address] (Wo rk) documented as of this encounter Visit Diagnoses Not on filedocumented in this encounter Additional Health Concerns Assessment Noted Time PHQ-9 Depression Total Score: 3 02/26/2018 4:39 PM HVAC ENGINEER documented as of this encounter Care Teams Supervisor Toy Assembly Relationship Specialty Start Date End Date Nelda Peña, DIGITAL SOLUTION ARCHITECT PCP - General Nurse Practitioner 02/02/18 ORDER ENTRY CLERK [address] [facility] [address] [place], [place] [address] Jose Lopez OD MD Optometry 03/04/18 Jillian Dubois, Nurse Practitioner Nurse Practitioner 07/30 DIGITAL SOLUTION ARCHITECT ORDER ENTRY CLERK [facility] [address] [place], [place] [address] documented as of this encounter
--- OUTSIDE RECORDS SUMMARY | 2022-02-19 14:29 | XMS_ITS | Encounter Summary ---
:1980 Author Organization [place] Address [address] [place] [address] Care Team Providers Name Role Phone Nelda Peña CLIENT SERVICES MANAGER YARROW GATHERER Primary Care Provider [phone] Jose Lopez OD Unavailable Jillian Dubois CLIENT SERVICES MANAGER YARROW GATHERER Unavailable [phone] Reason for Visit Reason Comments RECHECK dm1 Encounter Details Date Type Department Care Team Description 06/10/2019 Office Visit M Lottie Mars, Type 1 farhan ghada Endocrinology PA-C mellitus with [address] [place] [address] [facility] complications (H) 3rd Floor [place], [place] (Primary Dx) [place], [place] [id number] Social History Tobacco Use Types Packs/Day [...] at Date Recorded Female 05/08/2020 12:57 PM AGRICULTURE WORKER documented as of this encounter Last Filed Vital Signs Vital Sign Reading Time Taken Comments Blood Pressure 126/87 06/10/2019 9:16 AM CDT Pulse 108 06/10/2019 9:16 AM CDT Temperature - - Respiratory Rate - - Oxygen Saturation - - Inhaled Oxygen Concentration - - Weight 103 kg (227 lb 1.6 oz) 06/10/2019 9:16 AM CDT Height - - Body Mass Index 41.54 04/06/2019 1:15 PM AGRICULTURE WORKER documented in this encounter Patient Instructions Patient InstructionsLottie Cedillo PA-C - 06/10/2019 9:00 AM CDT Dear Tamiko, It is always good to see you! I am so glad you have joined a gym, are eating better and losing weight! If BG ae high, please first work to get basal rate right. Look at fasting blood glucose or even 12 hours fasting is a bit more accurate - if always rising, please increase Tresiba by 1-2 units every week until fasting jean carlos consistently 90 -120, as long as no overnight lows. My best wishes, Lottie Cedillo PA-C, [facility] Diabetes, Endocrinology, and Metabolism [phone] Appointments/Nurse [phone] nurse line [phone] URGENTafter hours/weekend Cooler Man tour production supervisor Here are some suggestions and tips to help facilitate the process for Libre. Sinhg (Ross)customer Support: No need to worry about 2019 deductibles that kicked in or patients that may have changed commercial plans. ALL COMMERCIALLY INSURED PATIENTS WILL STILL PAY $75 OR LESS FOR THE 2 SENSORS FOR THE MONTH. Patients who also have NO insurance at all will also have the same $75 or less cost. IF your pharmacy tells you NO COVERAGE OR ANYTHING OVER $75, PLEASE HAVE [employer] CALL CUSTOMER SERVICE TO GET A CODE TO HAVE THE PHARMACY MANUALLY ENTER TO BRING THE COST DOWN TO THAT NO MORE THAN $75 FOR 2 SENSORS. > -THIS APPLIES TO ANY COMMERCIAL PLAN THAT ALSO MAY HAVE CRITERIA PATIENTS NEED TO MEET! IF THEYDON???T MEET IT, THEY WILL STILL PAY NO MORE THAN $75 WITH [employer] AUTOMATIC DISCOUNT. documented in this encounter Progress Notes Lottie Cedillo PA-C - 06/10/2019 9:00 AM CDT [facility] Endocrinology Lottie Jones. ERROL Cedillo 06/10/2019 Chief Complaint: Diabetes History of Present Illness: Tamiko Méndez is a 38 year old female with a history of type 1 diabetes mellitus who presents for follow up. She was diagnosed with type 1 diabetes at age 10.5 months old, with complication of proliferative [facility], then afterwards switched to NPH and R due to cost, thepump getting caught on things, and recurrent infections. Then went to Analog insulins in early 2018.She has seen Dr. Abraham and Kalina here in clinic. She last saw Dr. [...] of the psychological barriers to her management. At her most recent visit with myself, on 04/06/2019, her A1c was 11.4. At this point we continued to discuss ways over overcoming psychological and financial barriers to management of her diabetes. We also discussed increasing her Tresiba dose. Interval history: Her current insulin regiment is Tresiba 42 units daily (she did not increase from last visit) and Novolog 16 units per meal typically, therefore max Novolog dose in a day is 55 units.Her financial stability is doing better, and is hoping to switch to a pump in the near future. In the interim, she is hoping to get a prescription for the CGM Freestyle Samantha so that she can keep closer track of her BG, as she has a history of being poor with checking her BG. Today, she reports not checking her BG at all since last visit. Her insurance dose not cover a CGM, and therefore appreciates that the Freestyle Samantha is most affordable. Tamiko is very excited as her weight is down by 12 lbs since last visit on 04/06/2019. She describes being more active and joining [employer]. She is also eating more vegetables as she has been ordering [employer] and is receiving large shipments of vegetables. Her boyfriend, who loves meat, has also been more willing to make vegetarian dishes as well. She is therefore more excited to recheckher A1c and monitor her BG closer. She notes that scratches on her feet have been taking longer to heal recently. She has not yet made an appointment with her psychiatrist, however plans to very shortly. She did receive a refill on her citalopram from another provider. Blood Glucose Monitoring: She did not bring in BG data today. Diabetes monitoring and complications: CAD: No Last eye exam results: She has bilateral proliferative retinopathy and was last seen by ophthalmology on 05/02/2018. She plans to make an appointment in the near future. Overall, her up close and intermediate vision has become more blurry in the last year. Long distance vision is not an issue at this point though. Microalbuminuria: 21.95 mg/g Cr in February 2018 [...] Aspirin: No Depression: Yes, management good right now, but does want to start therapy. Review of Systems: Pertinent items are noted [...] morning as long as no overnight or deputy building guard lows., Disp: 10 mL, Rfl: 11 ??? [...] 10 mo) Past Surgical History: Induced by [facility] Oral surgery Dental extractions Diabetic retinopathy left [...] use: yes Drug use: n/a Physical Exam: BP 126/87 Pulse 108 Wt 103 kg (227 lb 1.6 oz) BMI 41.54 kg/m?? Wt Readings from Last 10 Encounters: 06/10/19 103 kg (227 lb 1.6 oz) 04/06/19 108.4 kg (239 lb) 12/09/18 107.1 kg (236 lb 3.2 oz) 08/18/18 108.5 kg (239 lb 4.8 oz) 06/18/18 105.9 kg (233 lb 6.4 oz) 05/14/18 105.8 kg (233 lb 3.2 oz) 03/12/18 106.1 kg (233 lb 14.4 oz) 02/26/18 106.1 kg (233 lb 12.8 oz) 02/17/18 106.1 kg (233 lb 12.8 oz) 09/18/09 85.7 kg (189 lb) General: Pleasant, overweight F with notably bright affect. Psych: Mood is good, affect is warm and appropriate. Thought form and content are fluid and coherent. HEENT: Eyes and sclera are clear. Extraocular movements are grossly intact without proptosis. Nares are patent, mucous membranes moist. Neck: No masses or JVD are noted. Resp: Easy and unlabored breathing. Neuro: Alert and oriented, communicating clearly. Ext: no swelling or edema Diabetic foot exam: PalpableDP (1-2/4) and PT (3/4) pulses, no trophic changes or ulcerative lesions, normal monofilament exam, cap refill normal. Data: Lab Results Component Value Date NA [...] 03/21/2018 Lab Results Component Value Date A1C 11.5 (H) 03/21/2018 A1C 11.9 (H) [...] Tamiko has type 1 diabetes with BG most recently above goal. She is not monitoring at all and suspects this may continue to be the case. However, recently she has increased activity, joined a gym, eating more vegetables, and has lost 12 lbs, so perhaps this has improved. She is feeling more optimistic about managing her diabetes and would like to get a Freestyle Samantha CGM until she is able to afforda Dexcom. She aceepted my offer to send data from her CGM in a few weeks. When she starts monitoringI asked her to work on titrating up her basal dose and I provided instructions on how to do this. - Albumin Random Urine Quantitative with Creat Ratio - Insulin Degludec (TRESIBA) 100 UNIT/ML SOLN Dispense: 10 mL; Refill: 11 - insulin aspart (NOVOLOG VIAL) 100 UNITS/ML vial Dispense: 4 vial; Refill: 3 - Continuous Blood Gluc Sensor (FREESTYLE SAMANTHA 14 DAY SENSOR) MISC Dispense: 2 each; Refill: 11 BP is at goal. Lipids reviewed, consider statin at 40 y age. On contraception, no plans to conceive. She will schedule eye exam, psychology today. Meeting PA goals and working on diet. Considering Dexcom and t-slim when can afford. Will advise when she needs orders and education. Follow-up: 3 months >50% of 30 minute visit spent in face to face counseling, education and coordination of care related to options for better glycemic control as well as preventing, detecting, and treating hypoglycemia. It is my privilege to be involved in the care of the above patient. Lottie Cedillo PA-C, [facility] Diabetes, Endocrinology, and Metabolism [phone] Appointments/Nurse [phone] pager [phone] nurse line Scribe Disclosure: I, Tea Chance, am serving as a scribe to document services personally performed by Lottie Cedillo PA-C at this visit, based upon the provider's statements to me. All documentation has been reviewed by the aforementioned provider prior to being entered into the official medical record. Portions of this medical record were completed by a scribe. UPON MY REVIEW AND AUTHENTICATION BY ELECTRONIC SIGNATURE, this confirms (a) I performed the applicable clinical services, and (b) the recordis accurate. documented in this encounter Nursing Notes Ruddy Gonzalez CMA - 06/10/2019 9:00 AM CDT Chief Complaint Patient presents with ??? RECHECK dm1 Ruddy Gonzalez CMA documented in this encounter Miscellaneous Notes Addendum Note - Bola Tipton - 06/10/2019 9:00 AM CDT Addended by: BOLA TIPTON on: 06/10/2019 07:30 PM Modules accepted: Orders documented in this encounter Plan of Treatment Upcoming Encounters Date Type Specialty Care Team Description 04/04/2022 Office Visit fermentation operator Kaela Dubois, [facility] [address] [place], [place] [address] (Wo rk) 04/23/2022 Virtual Visit Endocrinology Lottie Cedillo PA-C [address] [place] [address] (Wo rk) documented as of this encounter Visit Diagnoses Diagnosis Type 1 diabetes mellitus with complicati ons (H) - Primary documented in this encounter Additional Health Concerns Assessment Noted Time PHQ-9 Depression Total Score: 0 04/06/2019 1:16 PM AGRICULTURE WORKER documented as of this encounter Care Teams Machine Pie Maker Relationship Specialty Start Date End Date Nelda Peña CLIENT SERVICES MANAGER PCP - General Nurse Practitioner 02/02/[address] [place] [address] Jose Lopez OD MD Optometry 03/04/18 Jillian Dubois, Nurse Practitioner Nurse Practitioner 07/30 CLIENT SERVICES MANAGER [facility] [address] [place], [place] [address] documented as of this encounter
--- OUTSIDE RECORDS SUMMARY | 2022-02-19 14:29 | XMS_ITS | Encounter Summary ---
:1980 Author Organization [place] Address [address] [place] [address] Care Team Providers Name Role Phone Nelda Peña Kirill SQUIRES GEOMETRY PROFESSOR Primary Care Provider Jose Lopez OD Unavailable Jillian Dubois APRN GEOMETRY PROFESSOR Unavailable Reason for Visit Reason Comments Follow Up string check Encounter Details Date Type Department Care Team Description 08/18/2018 Office Visit [facility] Jillian Dubois IUD check up (Primary Dx); [facility] [place] GEOMETRY PROFESSOR Spotting; [facility] PMDD (premenstrual dysphoric disorder) [address] [facility] [employer] [address] [facility] [address] [place], [place] [address] [address] [place], [place] [phone] (Wo rk) [address] [phone] Social History Tobacco Use Types Packs/Day Years [...] at Date Recorded Female 05/08/2020 12:57 PM RETAIL MANAGEMENT TRAINEE documented as of this encounter Last Filed Vital Signs Vital Sign Reading Time Taken Comments Blood Pressure 123/85 08/18/2018 1:38 PM CDT Pulse 114 08/18/2018 1:38 PM CDT Temperature - - Respiratory Rate - - Oxygen Saturation - - Inhaled Oxygen Concentration - - Weight 108.5 kg (239 lb 4.8 oz) 08/18/2018 1:38 PM CDT Height 157.5 cm (5' 2) 08/18/2018 1:38 PM CDT Body Mass Index 43.77 08/18/2018 1:38 PM CDT documented in this encounter Progress Notes Jillian Dubois, [facility] GEOMETRY PROFESSOR - 08/18/2018 1:30 PM CDT SUBJECTIVE: Hermelinda Méndez is a 37 yr old female, , who presents to clinic today for the following a routine IUD string check and Mental Health follow-up: PCP: Dr. Peña Medical history is significant for Type 1 diabetes, obesity, adenomyosis, depression, and PMDD 1) IUD string check: Mirena IUD was placed 03/12/2018. She experienced light cramping for first few months after IUD insertion, but this has now resolved. Spotting everyday - getting tired of it. Spotting is the size of a thumbprint on a pad. Has only had one light period since placement. Hasn't tried to feel for her IUD strings. No new sexual partners. No concern for STDs. Dermatology recommended she start spironolactone for management of cystic acne and sent her in a prescription. She has not started this yet. She was told that spotting and cramping were potential side effects so she would like to know what she should do given the spotting she is already experiencing with the IUD. 2) Mental Health Follow-up: Tamiko has been on Celexa 40mg daily. She has plans to follow-up with psychiatry by missed an appointment due to going to the wrong building and then had to cancel another appointment. She states her mental health feels stable, although continues to have trouble with motivation. No suicidal thoughts. Will see a psychiatrist within the next month to manage depression. Requests refill on Celexa until seen for care. Past Medical History: Diagnosis Date ??? Acne [...] LASER SURGERY OF EYE Left diabetic retinopathy Current Outpatient Medications Medication ??? cetirizine (ZYRTEC) 10 MG tablet ??? citalopram (CELEXA) 40 MG tablet ??? citalopram (CELEXA) 40 MG tablet ??? dulaglutide (TRULICITY) 0.75 MG/0.5ML pen ??? insulin aspart (NOVOLOG VIAL) 100 UNITS/ML vial ??? Insulin Degludec 100 UNIT/ML SOLN ??? norethindrone (MICRONOR) 0.35 MG tablet ??? augmented betamethasone dipropionate (DIPROLENE-AF) 0.05 % external cream ??? blood glucose (NO BRAND SPECIFIED) test strip ??? blood glucose monitoring (NO BRAND SPECIFIED) meter device kit ??? CLARITIN 10 MG OR TABS ??? clindamycin (CLEOCIN T) 1 % external solution ??? Continuous Blood Gluc Portrait Painter (FREESTYLE LEATHA 14 DAY READER) MARY ??? Continuous Blood Gluc Sensor (FREESTYLE LEATHA 14 DAY SENSOR) MISC ??? insulin syringe 31G X 5/16 0.5 ML MISC ??? levonorgestrel (MIRENA) 20 MCG/24HR IUD ??? LORazepam (ATIVAN) 0.5 MG tablet ??? spironolactone (ALDACTONE) 50 MG tablet ??? tretinoin (RETIN-A) 0.025 % external cream No current facility-administered medications for this visit. Subjective: 10-point ROS negative except for as noted above. Objective: BP 123/85 (BP Location: Right arm, Patient Position: Chair) Pulse 114 Ht 1.575 m (5' 2) Wt 108.5 kg (239 lb 4.8 oz) BMI 43.77 kg/m?? General: appearance appropriate, affect bright, no acute distress Pelvic Exam: EG/BUS: Normal genital architecture without lesions, erythema or abnormal secretions; Bartholin's, Urethra, [place]'s normal Urethral meatus: normal Urethra: no masses, tenderness, or scarring Vagina: moist, pink, rugae with creamy, white and odorless secretions Cervix: Nulliparous, pink, moist, closed, without lesion, blood noted at os and IUD strings extend 3cm from external os Assessment/plan: IUD/spotting - normal IUD string check; no evidence of displacement - Due to continued daily spotting at 5 months after insertion, pt was offered a pelvic ultrasound toconfirm IUD's position and evaluate for structural cause of bleeding. Tamiko declined this at this time. but declined at this time. - Offered trial of progesterone only control pills to take daily for 2-3 months to see if thatwill resolve her daily spotting; she desires Rx for this today. Pt knows to send a [employer] message if daily spotting does not resolve after starting the POPs. Depression - Patient will make a psychiatry appointment; provider [facility] in hopes to get patient in for care sooner - Currently is stable and refill sent for Celexa until she can she be seen by psychiatry for care. Tamiko expressed understanding and agreement with the plan for care. Jillian Dubois, ILA, RN EMERGENCY ROOM, WHNP documented in this encounter Nursing Notes Chelsea Fatima CMA - 08/18/2018 1:30 PM CDT Chief Complaint Patient presents with ??? Follow Up string check documented in this encounter Plan of Treatment Upcoming Encounters Date Type Specialty Care Team Description 04/04/2022 Office Visit masking machine feeder Kaela Dubois APRN [facility] [address] [place] [address] (Wo rk) 04/23/2022 Virtual Visit Endocrinology Lottie Cedillo PA-C [address] [place] [address] (Wo rk) documented as of this encounter Visit Diagnoses Diagnosis IUD check up - Primary Surveillance of previously prescribed in trauterine contraceptive device Spotting Other specified noninflammatory disorder of vagina PMDD (premenstrual dysphoric disorder) Premenstrual tension syndromes documented in this encounter Additional Health Concerns Assessment Noted Time PHQ-9 Depression Total Score: 3 02/26/2018 4:39 PM RETAIL MANAGEMENT TRAINEE documented as of this encounter Care Teams Health Care / Medical Job Titles Relationship Specialty Start Date End Date Nelda Peña APRN PCP - General Nurse Practitioner 02/02/18 [facility] [address] [facility] [address] [place] [address] Jose Lopez OD MD Optometry 03/04/18 Jillian Dubois, Nurse Practitioner Nurse Practitioner 07/30 RN EMERGENCY ROOM [facility] [address] [place] [address] documented as of this encounter
--- OUTSIDE RECORDS SUMMARY | 2022-02-19 14:29 | XMS_ITS | Encounter Summary ---
:1980 Author Organization [place] Address [address] [place] [address] Care Team Providers Name Role Phone Nelda Peña APRN RATE MARKER Primary Care Provider [phone] Jose Lopez OD Unavailable Encounter Details Date Type Department Care Team Description 06/18/2018 Travel Social History Tobacco Use Types Packs/Day [...] at Date Recorded Female 05/08/2020 12:57 PM [place] documented as of this encounter Plan of Treatment Upcoming Encounters Date Type Specialty Care Team Description 04/04/2022 Office Visit delivery engineer Kaela Dubois APRN [facility] [address] [place], [place] [address] (Wo rk) 04/23/2022 Virtual Visit Endocrinology Lottie Cedillo PA-C [address] [place], [place] [id number] (Wo rk) documented as of this encounter Visit Diagnoses Not on filedocumented in this encounter Additional Health Concerns Assessment Noted Time PHQ-9 Depression Total Score: 3 02/26/2018 4:39 PM [place] documented as of this encounter Care Teams Shank Scourer Relationship Specialty Start Date End Date Nelda Peña APRN RATE MARKER PCP - General Nurse Practitioner 02/02/18 [address] [facility] [address] [place], [place] [phone] Jose Lopez OD MD Optometry 03/04/18 documented as of this encounter
--- OUTSIDE RECORDS SUMMARY | 2022-02-19 14:29 | XMS_ITS | Encounter Summary ---
:1980 Author Organization [place] Address [address] [place] [address] Care Team Providers Name Role Phone Nelda Peña MANAGER POST PIPE STRESS ENGINEER Primary Care Provider [phone] Jose Lopez OD Unavailable Jillian Dubois APRN PIPE STRESS ENGINEER Unavailable [phone] Encounter Details Date Type Department Care Team Description 08/18/2018 Travel Social History Tobacco Use Types Packs/Day [...] at Date Recorded Female 05/08/2020 12:57 PM RRT[place] documented as of this encounter Plan of Treatment Upcoming Encounters Date Type Specialty Care Team Description 04/04/2022 Office Visit indoor sports centre manager Kaela Dubois, [facility] [address] [place], [place] [address] (Wo rk) 04/23/2022 Virtual Visit Endocrinology Lottie Cedillo PA-C [address] [place] [id number] (Wo rk) documented as of this encounter Visit Diagnoses Not on filedocumented in this encounter Additional Health Concerns Assessment Noted Time PHQ-9 Depression Total Score: 3 02/26/2018 4:39 PM RRTS documented as of this encounter Care Teams Production Control Coordinating Clerk Relationship Specialty Start Date End Date Nelda Peña APRN PCP - General Nurse Practitioner 02/02/[address] [place] [address] Jose Lopez OD MD Optometry 03/04/18 Jillian Dubois, Nurse Practitioner Nurse Practitioner 07/30 MANAGER POST [facility] [address] [place], [place] [address] documented as of this encounter
--- OUTSIDE RECORDS SUMMARY | 2022-02-19 14:29 | XMS_ITS | Encounter Summary ---
:1980 Author Organization [place] Address [address] [place] [address] Care Team Providers Name Role Phone Nelda Peña CONSTRUCTION GRIP PHLEBOTOMY SUPPORT TECH Primary Care Provider [phone] Jose Lopez OD Unavailable Jillian Dubois APRN PHLEBOTOMY SUPPORT TECH Unavailable [phone] Encounter Details Date Type Department Care Team Description 04/09/2019 Travel Social History Tobacco Use Types Packs/Day [...] at Date Recorded Female 05/08/2020 12:57 PM LIAISON ENGINEER documented as of this encounter Plan of Treatment Upcoming Encounters Date Type Specialty Care Team Description 04/04/2022 Office Visit vice president of procurement Kaela Dubois, [facility] [address] [place], [place] [address] (Wo rk) 04/23/2022 Virtual Visit Endocrinology Lottie eCdillo PA-C [address] [place], [place] [address] (Wo rk) documented as of this encounter Visit Diagnoses Not on filedocumented in this encounter Additional Health Concerns Assessment Noted Time PHQ-9 Depression Total Score: 0 04/06/2019 1:16 PM LIAISON ENGINEER documented as of this encounter Care Teams Security Guards Dispatcher Relationship Specialty Start Date End Date Nelda Peña APRN PCP - General Nurse Practitioner 02/02/[address] [place] [address] Jose Lopez OD MD Optometry 03/04/18 Jillian Dubois, Nurse Practitioner Nurse Practitioner 07/30 CONSTRUCTION GRIP [facility] [address] [place], [place] [address] documented as of this encounter
--- OUTSIDE RECORDS SUMMARY | 2022-02-19 14:29 | XMS_ITS | Encounter Summary ---
:1980 Author Organization [place] Address [facility] [place] [address] Care Team Providers Name Role Phone Casey Nelda Roy STUDENT RECORDS COORDINATOR FLIGHT CONTROL MANAGER Primary Care Provider Jose Lopez OD Unavailable Jillian Dubois STUDENT RECORDS COORDINATOR FLIGHT CONTROL MANAGER Unavailable Reason for Visit Reason Comments Medication Refill TRESIBA 100 UNIT/ML SOLN Encounter Details Date Type Department Care Team Description 11/11/[address] [facility] Jeremy Abraham MD Medication Refill [address] [facility] (TRESIBA 100 UNIT/ML 3rd Floor [address] SOLN) [place], [place] [address] [phone] Social History Tobacco Use Types Packs/Day Years [...] at Date Recorded Female 05/08/2020 12:57 PM MR TEACHER documented as of this encounter Miscellaneous Notes Telephone Encounter - Arelis Burns MD - 11/13/2018 9:33 AM CDT I have never seen this patient Telephone Encounter - Karen Noble RN - 11/11/2018 1:20 PM CDT TRESIBA 100 UNIT/ML SOLN not current med list Last Written Prescription Date: Insulin Degludec 100 UNIT/ML SOLN 05-15-18 Last Fill Quantity: 2 vial, # refills: 3 Last Office Visit : 06-18-18 Future Office visit: 11-23-18 Routing refill request to provider for review/approval because: Insulin - refilled per clinic documented in this encounter Plan of Treatment Upcoming Encounters Date Type Specialty Care Team Description 04/04/2022 Office Visit access manager Kalea Dubois APRN [facility] [address] [place] [address] (Wo rk) 04/23/2022 Virtual Visit Endocrinology Lottie Cedillo , ERROL [address] [place], [place] [id number] (Wo rk) documented as of this encounter Visit Diagnoses Diagnosis Type 1 diabetes mellitus with complicati ons (H) documented in this encounter Additional Health Concerns Assessment Noted Time PHQ-9 Depression Total Score: 3 02/26/2018 4:39 PM MR TEACHER documented as of this encounter Care Teams Cinder Pitman Relationship Specialty Start Date End Date Nelda Peña STUDENT RECORDS COORDINATOR PCP - General Nurse Practitioner 02/02/18 FLIGHT CONTROL MANAGER [address] [facility] [address] [place] [address] Jose Lopez OD MD Optometry 03/04/18 Jillian Dubois, Nurse Practitioner Nurse Practitioner 07/30 STUDENT RECORDS COORDINATOR FLIGHT CONTROL MANAGER [facility] [address] [place] [address] documented as of this encounter
--- OUTSIDE RECORDS SUMMARY | 2022-02-19 14:29 | XMS_ITS | Encounter Summary ---
:1980 Author Organization [place] Address [facility] [place] [address] Care Team Providers Name Role Phone Jonoamerica Nelda Roy RN MENTAL HEALTH SHOE STITCHER ODD Primary Care Provider [phone] Jose Lopez OD Unavailable Jillian Dubois RN MENTAL HEALTH SHOE STITCHER ODD Unavailable [phone] Reason for Visit Reason Onset Date Comments Refill Request 02/24/2019 spironolactone (DERIAN CTONE) 50 MG tablet Refill Request 02/26/2019 Encounter Details Date Type Department Care Team Description 02/24/2019 Refill [facility] Dermatology Jay Salas, Refill Request [address] [facility] [place] (spironolactone 3rd Floor [address] [place] [address] (ALDACTONE) 50 MG [place], [place] tablet); Refill Request [id number] (Wo rk) Social History Tobacco Use Types [...] at Date Recorded Female 05/08/2020 12:57 PM BLACKJACK SUPERVISOR documented as of this encounter Miscellaneous Notes Telephone Encounter - Caity Urban RN - 02/24/2019 3:28 PM CST Last Clinic Visit: 08/17/18 [place]: NONE Scheduling has been notified to contact the pt for appointment. KJACK SUPERVISOR documented in this encounter Plan of Treatment Upcoming Encounters Date Type Specialty Care Team Description 04/04/2022 Office Visit transit authority police officer Kaela Dubois APRN [facility] [address] [place] [address] (Wo rk) 04/23/2022 Virtual Visit Endocrinology Lottie Cedillo PA-C [address] [place], [place] [address] (Wo rk) documented as of this encounter Visit Diagnoses Diagnosis Acne vulgaris Other acne documented in this encounter Additional Health Concerns Assessment Noted Time PHQ-9 Depression Total Score: 3 02/26/2018 4:39 PM BLACKJACK SUPERVISOR documented as of this encounter Care Teams Cyber Security Manager Relationship Specialty Start Date End Date Nelda Peña APRN PCP - General Nurse Practitioner 02/02/18 [facility] [address] [facility] [address] [place] [address] Jose Lopez OD MD Optometry 03/04/18 Jillian Dubois, Nurse Practitioner Nurse Practitioner 07/30 [facility] [address], [place] [address] documented as of this encounter
--- OUTSIDE RECORDS SUMMARY | 2022-02-19 14:29 | XMS_ITS | Encounter Summary ---
:1980 Author Organization [place] Address [address] [place] [address] Care Team Providers Name Role Phone Nelda Peña HOUSING INSTALLER LOAN TELLER Primary Care Provider [phone] Jose Lopez OD Unavailable Jillian Dubois APRN LOAN TELLER Unavailable [phone] Encounter Details Date Type Department Care Team Description 12/04/2018 Travel Social History Tobacco Use Types Packs/Day [...] at Date Recorded Female 05/08/2020 12:57 PM TECHNICAL INSPECTOR documented as of this encounter Plan of Treatment Upcoming Encounters Date Type Specialty Care Team Description 04/04/2022 Office Visit manager wastewater Kaela Dubois, [facility] [address] [place], [place] [phone] (Wo rk) 04/23/2022 Virtual Visit Endocrinology Lottie Cedillo PA-C [address] [place] [id number] (Wo rk) documented as of this encounter Visit Diagnoses Not on filedocumented in this encounter Additional Health Concerns Assessment Noted Time PHQ-9 Depression Total Score: 3 02/26/2018 4:39 PM TECHNICAL INSPECTOR documented as of this encounter Care Teams Vacuum Pan Operator Relationship Specialty Start Date End Date Nelda Peña APRN PCP - General Nurse Practitioner 02/02/[address] [place] [address] Jose Lopez OD MD Optometry 03/04/18 Jillian Dubois, Nurse Practitioner Nurse Practitioner 07/30 HOUSING INSTALLER [facility] [address] [place], [place] [address] documented as of this encounter
--- OUTSIDE RECORDS SUMMARY | 2022-02-19 14:29 | XMS_ITS | Encounter Summary ---
:1980 Author Organization [place] Address [facility] [place] [address] Care Team Providers Name Role Phone Nelda Peña NON MORSE INTERCEPT TECHNICIAN DIGITAL ADVISOR Primary Care Provider [phone] Jose Lopez OD Unavailable Jillian Dubois NON MORSE INTERCEPT TECHNICIAN DIGITAL ADVISOR Unavailable [phone] Reason for Referral Vision Services (Routine) - Closed Specialty Diagnoses / Procedures Referred By Contact Refer red To Contact Diagnoses 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) Lottie Cedillo PA-C [address] [place] [address] [phone] Referral ID Status Reason Start Date Expiration Date Visits Requ ested Visits Authorized [id number] Closed 04/06/2019 04/05/2020 1 1 STATION Consultation (Routine) - Closed Specialty Diagnoses / Procedures Referred By Contact Refer red To Contact Diagnoses 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) Lottie Cedillo PA-C [address] [place] [address] [phone] 5 Referral ID Status Reason Start Date Expiration Date Visits Requ ested Visits Authorized [id number] Closed 04/06/2019 04/05/2020 1 1 [facility] (Routine) - Closed Specialty Diagnoses / Procedures Referred By Contact Refer red To Contact Diagnoses 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) Lottie Cedillo PA-C [address] [place] [address] [phone] 5 Referral ID Status Reason Start Date Expiration Date Visits Requ ested Visits Authorized [id number] Closed 04/06/2019 04/05/2020 1 1 STATION Reason for Visit Reason Comments Follow Up type 1 diabetes Encounter Details Date Type Department Care Team Description 04/06/2019 Office Visit [facility] Lottie Cedillo, Type 1 farhan junaid Endocrinology ERROL mellitus with [address] [place] [address] complications (H) 3rd Floor [place], [place] (Primary Dx) [place] [phone] Social History Tobacco Use Types Packs/Day Years [...] at Date Recorded Female 05/08/2020 12:57 PM COOK STATION documented as of this encounter Last Filed Vital Signs Vital Sign Reading Time Taken Comments Blood Pressure 132/86 04/06/2019 1:15 PM COOK STATION Pulse 85 04/06/2019 1:15 PM COOK STATION Temperature - - Respiratory Rate - - Oxygen Saturation - - Inhaled Oxygen Concentration - - Weight 108.4 kg (239 lb) 04/06/2019 1:15 PM COOK STATION Height 157.5 cm (5' 2) 04/06/2019 1:15 PM COOK STATION Body Mass Index 43.71 04/06/2019 1:15 PM COOK STATION documented in this encounter Patient Instructions Patient InstructionsAlveLottie guillen PA-C - 04/06/2019 1:00 PM CST It is good to meet you! Please increase to 42 units Tresiba daily. Please check fasting blood glucose each morning. Please increase by 1 unit each week until fasting blood glucose 90 -140 most mornings, as long as no overnight/ network services project manager lows blood sugar. Also, please consider: - Download Diabetes M to track your hard work and DM management. - Take care of yourself. Check BG before each meal and give correction with carbohydrate dose. Walkor dance 5 minutes or more if you can after each meal. You are in charge. This is your year! - Look at online videos for Tandem T slim pump with Dexcom G6 - or just Dexcom G6. - meet with educator if you want to try some items get more feedback before choosing. My best wishes, Lottie Cedillo PA-C, [facility] Diabetes, Endocrinology, and Metabolism [phone] Appointments/Nurse [phone] nurse line [phone] URGENTafter hours/weekend Software Programmer control valve technician STATION documented in this encounter Progress Notes Lottie Cedillo PA-C - 04/06/2019 1:00 PM CST [facility] Endocrinology Lottie Cedillo PA-C 04/06/2019 Chief Complaint: Diabetes History of Present Illness: Tamiko Méndez is a 38 year old female with a history of type 1 diabetes mellitus who presents for follow up. She was diagnosed with type 1 diabetes at age 10.5 months old, with complication of proliferative DR. In college she was on insulin pump, [...] stopped using the samantha recently due to cost. No changes to her insulin routine were made at that time, she was instructed to work on timing her doses with meals and hopefully meet with health psychology to address some ofthe psychological barriers to her management. Today, she reports that she does not check as often as she should. Using the Samantha sensor was not affordable for her and insulin is also expensive. She recently found a manufacturers coupon for her insulin, however it is still expensive for her. She now has abetter job and finances are improved. She rarely has lows which she notices symptoms for around 90. Lows are typically overnight and she does not check when she notices symptoms, she usually just eats to correct. She has some highs into the 500swhich she treats with more insulin, she does not check ketones. She never feels ill and has never - or at least not since early had childhood - had DKA. She had a day of extended highs which went on into the next day, she had missed a dose of insulin that for lunch on the first day and each time she checked afterwards it was in the 400-500 range. She denies having had diabetic ketoacidosis since childhood. She does not consistently check to assure highs come down. Her current insulin regimen is Tresiba 40 unit(s) at night, which she does not vary and takes consistently. She does not check her fasting blood glucose. Her meal time insulin is often taken well afterthe meal because she gets distracted. As a result, she finds herself playing catch-up often. She does not think she would keep up with a glucose log, although she does have some motivation to improve her overall health. One barrier for her is changing her behaviors, she is overall apathetic toward managing diabetes and thinks it is difficult to alter her mindset going forward. In the past her mother helped her manage diabetes for the first 17 years, she did not feel prepared for her mother not helping her after age 18. From a young age she was told she would in her 20s so she developed a mentality that she would be at age 25 which has persisted despite that not being the reality, she feels like she is still waiting to (denies suicidal ideation, more of a waiting to by not managing diabetes). Right now since she has a better job and overall her life feels like it is in a better place so she would like to consider technology options. At this time she would like to hold off on discussing other technology until her next appointment. She would like to lose weight, however last year she failed weight watchers. She does like walkingand swimming but she is unaware of places with open swimming. Associated Signs/Symptoms Hypoglycemia: feels lows at <70 Hyperglycemia: increased thirst. Neuropathy: no numbness or pain in extremities Vascular Symtpoms: no claudication or edema Angina/CHF: not chest pain, no GAMBOA, no orthopnea Ulcers: No Amputations: No ?? Current treatment strategy: Tresiba 40 units at bedtime and Novolog ~16??units TID with meal and correction 04/24 over 150 Diabetes Care: Retinopathy: bilateral proliferative retinopathy, last seen by ophthalmology 05/02/2018 Nephropathy: Neg UACR 02/2018 Neuropathy: None Smoking: no Blood Pressure: no HTN Lipids: LDL 91 in Feb 2018 Macrovascular: no issues Other autoimmune: TTG negative in July 2018. Thyroid test normal 02/2018. Diet: She has 3 meals per day: breakfast is yogurt/ muffin, lunch is burger/ sandwich and dinner is meat/ fish/ vegetables. She snacks with chips, cereal bar,?and crackles throughout the day and at night with cookies and icecream. She moved in her with boyfriend who is a larger persona dn feels Weight Watchers did not work as they would have had to make two different meals to eat their two different desires. She is hoping he will attend nutrition education with her. She wants to lose weight and feel better. ?? Exercise: no routine ?? Blood Glucose Monitoring: We reviewed glucometer data together by scrolling through glucometer as download not available. Lowest value 114 at 7:10 AM in January 2019. Multiple values Hi and 500+ in last 3 months. 7 day average 276 3 aurelia 14 316 6 aurelia 30 day average 340 with 13 values Diabetes monitoring and complications: CAD: No Last eye exam results: bilateral proliferative retinopathy, last seen by ophthalmology 05/02/2018 Microalbuminuria: 21.95 mg/g Cr in February 2018 Neuropathy: No HTN: No On Statin: No On Aspirin: No Depression: Yes Review of Systems: Pertinent items are noted in HPI. All other systems are negative. Active Medications: Current Outpatient Medications: ??? Insulin Degludec (TRESIBA) 100 UNIT/ML SOLN, Inject 42 Units Subcutaneous daily Increase by 1 unit every 5-7 days until fasting blood sugar is at 90 - 140 each morning as long as no overnight or network services project manager lows., Disp: 10 mL, Rfl: 11 ??? augmented betamethasone dipropionate (DIPROLENE-AF) 0.05 % external cream, Apply topically 2 times daily Do not apply to face, groin, or armpits (Patient not taking: Reported on 08/18/2018), Disp: 50 g, Rfl: 1 ??? blood glucose (NO BRAND SPECIFIED) test strip, Use to test blood sugar 4 times daily or as directed., Disp: 100 strip, Rfl: 3 ??? blood glucose monitoring (NO BRAND SPECIFIED) meter device kit, Use to test blood sugar 4 times daily or as directed., Disp: 1 kit, Rfl: 0 ??? cetirizine (ZYRTEC) 10 MG tablet, Take 10 mg by mouth daily, Disp: , Rfl: ??? citalopram (CELEXA) 40 MG tablet, Take 1 tablet (40 mg) by mouth daily, Disp: 60 tablet, Rfl: 1 ??? citalopram (CELEXA) 40 MG tablet, Take 1 tablet (40 mg) by mouth daily, Disp: 30 tablet, Rfl: 0 ??? CLARITIN 10 MG OR TABS, 1 tab daily, Disp: 30, Rfl: 5 ??? clindamycin (CLEOCIN T) 1 % external solution, Apply topically 2 times daily To the scalp (Patient not taking: Reported on 08/18/2018), Disp: 120 mL, Rfl: 3 ??? Continuous Blood Gluc Gravedigger (FREESTYLE SAMANTHA 14 DAY READER) MARY, 1 Application 5 times daily, Disp: 1 Device, Rfl: 1 ??? Continuous Blood Gluc Sensor (FREESTYLE SAMANTHA 14 DAY SENSOR) MISC, 1 Application 4 times daily, Disp: 2 each, Rfl: 3 ??? dulaglutide (TRULICITY) 0.75 MG/0.5ML pen, Inject 0.75 mg Subcutaneous every 7 days, Disp: 2 mL,Rfl: 3 ? ? insulin aspart (NOVOLOG VIAL) 100 UNITS/ML vial, 14 units with meals and correction 04/24 >150, Disp: 4 vial, Rfl: 3 ??? Insulin Degludec 100 UNIT/ML SOLN, Inject 40 Units Subcutaneous daily, Disp: 2 vial, Rfl: 3 ??? insulin syringe 31G X 5/16 [...] ??? spironolactone (ALDACTONE) 50 MG tablet, Take 2 tablets (100 mg) by mouth At Bedtime (Patient not taking: Reported on 08/18/2018), Disp: 60 tablet, Rfl: 3 ??? tretinoin (RETIN-A) 0.025 % external cream, Apply topically At Bedtime Pea- sized amount to the whole face. Start every other night and increase frequency over a period of weeks (Patient not taking:Reported on 08/18/2018), Disp: 45 g, Rfl: 3 Allergies: Hay fever & [a.r.m.] and No clinical screening - see comments Past Medical History: Acne cystica Adenomyosis Asthma Depression Dysmenorrhea Type 1 diabetes mellitus Past Surgical History: Dilatation and curettage for Oral surgery Dental extractions Laser surgery of eye Family History: Mother - Osteoarthritis, spinal stenosis, depression, anxiety, allergies Father - Hypertension Cousin - Ulcerative colitis Maternal grandfather - Spinal stenosis, type 2 diabetes, kidney disease Paternal grandmother - Type 2 diabetes Sister - Allergies Social History: Unmarried Non smoker Moved in with her boyfriend in 2019. 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 Physical Exam: BP 132/86 Pulse 85 Ht 1.575 m (5' 2) Wt 108.4 kg (239 lb) BMI 43.71 kg/m?? Wt Readings from Last 10 Encounters: 04/06/19 108.4 kg (239 lb) 12/09/18 107.1 kg (236 lb 3.2 oz) 08/18/18 108.5 kg (239 lb 4.8 oz) 06/18/18 105.9 kg (233 lb 6.4 oz) 05/14/18 105.8 kg (233 lb 3.2 oz) 03/12/18 106.1 kg (233 lb 14.4 oz) 02/26/18 106.1 kg (233 lb 12.8 oz) 02/17/18 106.1 kg (233 lb 12.8 oz) 09/18/09 85.7 kg (189 lb) 01/30/07 73.5 kg (162 lb) General: Pleasant, well nourished and hydrated female in NAD. Psych: Mood is good, affect is appropriate. Thought form and content are fluid and coherent. HEENT: Eyes and sclera are clear. Extraocular movements are grossly intact without proptosis. Nares are patent, mucous membranes moist. Neck: No masses or JVD are noted. Resp: Easy and unlabored breathing. Neuro: Alert and oriented, communicating clearly. Ext: no swelling or edema Data: Lab Results Component Value Date NA [...] 11.3 (A) 12/09/2018 HEMOGLOBINA1 11.4 (A) 06/18/2018 Lab Results Component Value Date CHOL 176 03/21/2018 TRIG 96 03/21/2018 HDL 66 03/21/2018 LDL 91 03/21/2018 LDL 50 08/29/2006 NHDL 110 03/21/2018 Assessment and Plan: 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) Tamiko is a 38 year old type 1 diabetic with blood glucose above goal, A1c today was 11.4. She feels she is in a good place to consider changes regarding this and weight. Management has been difficultfor her, she can try downloading diabetes Estorian for assistance tracking. Per her request we will discussDexcom at later appointment; she may look at online. She also will see weight management and health psychology to work on some emotional issues sorrounding diabetes. Her poor control has been multifactorial, financial, psychological, and feelings of futiliy have all been contributing factors. We discussed a few ways to improve her control going forward. We agreed to start with getting her on the correct dose of dose of Tresiba, which was increased to 42 unit(s) daily with instructions to titrate up further until her next appointment. In the mean time, she will consider her options for adding technology and can discuss with diabetes education once she has done some more of her own research, if she d esires. I encouraged her to look for more options for physical activity that she enjoys. - Hemoglobin A1c POCT - PSYCHOLOGY REFERRAL - Insulin Degludec (TRESIBA) 100 UNIT/ML SOLN Dispense: 10 mL; Refill: 11 - BARIATRIC ADULT REFERRAL - OPHTHALMOLOGY ADULT REFERRAL Follow-up: No follow-ups on file. >50% of 30 minute visit spent in face to face counseling, education and coordination of care related to options for better glycemic control as well as preventing, detecting, and treating hypoglycemia. It is my privilege to be involved in the care of the above patient. Lottie Cedillo PA-C, [facility] Diabetes, Endocrinology, and Metabolism [phone] Appointments/Nurse [phone] pager [phone] nurse line Scribe Disclosure: I, Gabe Diego, am serving as a scribe to document [...] clinical services, and (b) the recordis accurate. STATION documented in this encounter Nursing Notes Crieslda Verdugo CMA - 04/06/2019 1:00 PM CST Chief Complaint Patient presents with ??? Follow Up type 1 diabetes Criselda Verdugo CMA STATION Criselda Verdugo CMA - 04/06/2019 1:00 PM CST Capillary puncture performed for Hemoglobin A1C test. Patient tolerated well. STATION documented in this encounter Plan of Treatment Upcoming Encounters Date Type Specialty Care Team Description 04/04/2022 Office Visit house supervisor Kaela Dubois APRN [facility] [address] [place], [place] [phone] (Wo rk) 04/23/2022 Virtual Visit Endocrinology Lottie Cedillo PA-C [address] [place], [place] [phone] (Wo rk) Scheduled Referrals Name Type Priority Associated Diagnoses Order S chedule PSYCHOLOGY REFERRAL Referral Routine Type 1 diabetes latishai tus Ordered: 04/06/2019 with complications (H) BARIATRIC ADULT REFERRAL Referral Routine Type 1 diabetes mellitus Ordered: 04/06/2019 with complications (H) OPHTHALMOLOGY ADULT Referral Routine Type 1 diabetes latishai tus Ordered: 04/06/2019 REFERRAL with complications (H) documented as of this encounter Procedures Procedure Name Priority Date/Time Associated Diagnosis Comme nts HEMOGLOBIN A1C POCT Routine 04/06/2019 Type 1 diabetes latishai philipps Results for this with complications (H) proce dure are in the results section . documented in this encounter Results (ABNORMAL) Hemoglobin A1c POCT (04/06/2019) Analysis Performed At Patho logist Time Signature Hemoglobin A1C 11.4 (A) 4.3 - 6 % POCT Specimen (Source) Anatomical Location Collection Method / Collectio n Time Received Time / Laterality Volume Whole blood 04/06/2019 specimen (specimen) Lottie Cedillo PA-C LAB - ENTER/EDIT POCT documented in this encounter Visit Diagnoses Diagnosis Type 1 diabetes mellitus with complicati ons (H) - Primary documented in this encounter Additional Health Concerns Assessment Noted Time PHQ-9 Depression Total Score: 0 04/06/2019 1:16 PM COOK STATION documented as of this encounter Care Teams Rehabilitator Relationship Specialty Start Date End Date Nelda Peña, NON MORSE INTERCEPT TECHNICIAN PCP - General Nurse Practitioner 02/02/18 DIGITAL ADVISOR [address] [facility] [address] [place], [place] [address] Jose Lopez OD MD Optometry 03/04/18 Jillian Dubois, Nurse Practitioner Nurse Practitioner 07/30 NON MORSE INTERCEPT TECHNICIAN [facility] [address] [place] [address] documented as of this encounter
--- OUTSIDE RECORDS SUMMARY | 2022-02-19 14:29 | XMS_ITS | Encounter Summary ---
:1980 Author Organization [place] Address [address] [place] [address] Care Team Providers Name Role Phone Nelda Peña GRAPHICS SOFTWARE ENGINEER INTERNAL SECURITY MANAGER Primary Care Provider [phone] Jose Lopez OD Unavailable Reason for Visit Reason Onset Date Comments Medication Question 06/18/2018 dulaglutide (TRULICI TY) 0.75 MG/0.5ML pen Encounter Details Date Type Department Care Team Description 06/18/2018 Telephone [facility] Endocrinolo Jeremy Hernandez, Medication Question [address] [facility] [place] (dulaglutide 3rd Floor [facility] (TRULICITY) 0.75 [place], [place] [address] MG/0.5ML pen) [id number] [place] [address] Social History Tobacco Use Types Packs/Day Years [...] at Date Recorded Female 05/08/2020 12:57 PM PUBLIC RELATIONS COORDINATOR documented as of this encounter Miscellaneous Notes Telephone Encounter - Malu Andrews RN - 06/18/2018 12:17 PM CDT New order sent for 2 ml For 1 month supply and 3 refills. Trulicity 0.75 mg Telephone Encounter - Key Barbosa - 06/18/2018 11:41 AM CDT [facility] Call Center Phone Message May a detailed message be left on voicemail: yes Reason for Call: Medication Question or concern regarding medication Prescription Clarification Name of Medication: dulaglutide (TRULICITY) 0.75 MG/0.5ML pen Prescribing Provider: Leigh Pharmacy: [facility] [address] [place] [address] What on the order needs clarification? Quantity on the Trulicity. Action Taken: Message routed to: [facility] Endocrinology documented in this encounter Plan of Treatment Upcoming Encounters Date Type Specialty Care Team Description 04/04/2022 Office Visit supervisor pit and auxiliaries Kaela Dubois APRN [facility] [address] [place] [address] (Maryjane pa) 04/23/2022 Virtual Visit Endocrinology Lottie Cedillo PA-C [address] [place] [address] (Maryjane pa) documented as of this encounter Visit Diagnoses Not on filedocumented in this encounter Additional Health Concerns Assessment Noted Time PHQ-9 Depression Total Score: 3 02/26/2018 4:39 PM PUBLIC RELATIONS COORDINATOR documented as of this encounter Care Teams Wildlife Manager Relationship Specialty Start Date End Date Nelda Peña APRN INTERNAL SECURITY MANAGER PCP - General Nurse Practitioner 02/02/18 [address] [facility] [address] [place] [address] Jose Lopez OD MD Optometry 03/04/18 documented as of this encounter
--- OUTSIDE RECORDS SUMMARY | 2022-02-19 14:29 | XMS_ITS | Encounter Summary ---
:1980 Author Organization [place] Address [address] [place] [address] Care Team Providers Name Role Phone Nelda Peña APRN TRACTOR EXPERT Primary Care Provider [phone] Jose Lopez OD Unavailable Jillian Dubois APRN TRACTOR EXPERT Unavailable [phone] Reason for Visit Reason Onset Date Comments Referral 08/25/2018 Referral to [facility] Encounter Details Date Type Department Care Team Description 08/25/2018 Telephone [facility] None Ref erral (Referral to [facility]) [facility] [place] [address] [place] [phone] Social History Tobacco Use Types [...] at Date Recorded Female 05/08/2020 12:57 PM PEANUT PICKER documented as of this encounter Miscellaneous Notes Telephone Encounter - Danuta Omer - 08/25/2018 3:08 PM CDT ----- Message from Jillina Dubois APRN CNP sent at 08/18/2018 2:57 PM CDT ----- Regarding: [facility] Referring ObGyn Provider: Jillian Dubois CNP Reason for Request: PMDD, medication consult Type of Evaluation requested: One time consult - I am happy to manage medications after initial referral and plan for care is determined if appropriate Patient's preferred method of communication: phone Patient aware of referral: yes Additional clinical information: Currently on Celexa 40mg, feeling unmotivated Thank you! Jillian Dubois DNP, PAINTER AND DECORATOR APPRENTICE, WHNP documented in this encounter Plan of Treatment Upcoming Encounters Date Type Specialty Care Team Description 04/04/2022 Office Visit surgical corsetier Kaela Dubois APRN CNP [facility] [address] [place], [place] [address] (Maryjane rk) 04/23/2022 Virtual Visit Endocrinology Lottie Cedillo PA-C [address] [place], [place] [id number] (Maryjane rk) documented as of this encounter Visit Diagnoses Not on filedocumented in this encounter Additional Health Concerns Assessment Noted Time PHQ-9 Depression Total Score: 3 02/26/2018 4:39 PM PEANUT PICKER documented as of this encounter Care Teams Orthopaedic Nurse Relationship Specialty Start Date End Date Nelda Peña APRN PCP - General Nurse Practitioner 02/02/18 [facility] [address] [place], [place] [phone] Jose Lopez OD MD Optometry 03/04/18 Jillian Dubois, Nurse Practitioner Nurse Practitioner 07/30 PAINTER AND DECORATOR APPRENTICE [facility] [address] [place] [address] documented as of this encounter
--- OUTSIDE RECORDS SUMMARY | 2022-02-19 14:29 | XMS_ITS | Encounter Summary ---
:1980 Author Organization [place] Address [address] [place] [address] Care Team Providers Name Role Phone Nelda Peña CLINICAL PHARMACOLOGIST PROCESS ENVIRONMENTAL TECHNICIAN Primary Care Provider [phone] Jose Lopez OD Unavailable Jillian Dubois APRN PROCESS ENVIRONMENTAL TECHNICIAN Unavailable [phone] Encounter Details Date Type Department Care Team Description 06/10/2019 Travel Social History Tobacco Use Types Packs/Day [...] Date Recorded Female 05/08/2020 12:57 PM APPLICATION TRAINER documented as of this encounter Plan of Treatment Upcoming Encounters Date Type Specialty Care Team Description 04/04/2022 Office Visit vacation guide Kaela Dubois, [facility]AW [facility] [address] [place], [place] [address] (Wo rk) 04/23/2022 Virtual Visit Endocrinology Lottie Cedillo PA-C [address] [place], [place] [address] (Wo rk) documented as of this encounter Visit Diagnoses Not on filedocumented in this encounter Additional Health Concerns Assessment Noted Time PHQ-9 Depression Total Score: 0 04/06/2019 1:16 PM APPLICATION TRAINER documented as of this encounter Care Teams Associate Professor Plant Pathology Relationship Specialty Start Date End Date Nelda Peña APRN PCP - General Nurse Practitioner 02/02/[address] [place] [address] Jose Lopez OD MD Optometry 03/04/18 Jillian Dubois, Nurse Practitioner Nurse Practitioner 07/30 CLINICAL PHARMACOLOGIST [facility] [address] [place], [place] [address] documented as of this encounter
--- OUTSIDE RECORDS SUMMARY | 2022-02-19 14:29 | XMS_ITS | Encounter Summary ---
:1980 Author Organization [place] Address [address] [place] [address] Care Team Providers Name Role Phone Nelda Peña APRN LEGAL PROJECT MANAGER Primary Care Provider Jose Lopez OD Unavailable Encounter Details Date Type Department Care Team Description 07/20/2018 Travel Social History Tobacco Use Types Packs/Day [...] at Date Recorded Female 05/08/2020 12:57 PM PALEONTOLOGY TEACHER documented as of this encounter Plan of Treatment Upcoming Encounters Date Type Specialty Care Team Description 04/04/2022 Office Visit it service continuity supervisor Kaela Dubois APRN LEGAL PROJECT MANAGER [facility] [address] [place], [place] [address] (Wo rk) 04/23/2022 Virtual Visit Endocrinology Lottie Cedillo PA-C [address] [place], [place] [address] (Wo rk) documented as of this encounter Visit Diagnoses Not on filedocumented in this encounter Additional Health Concerns Assessment Noted Time PHQ-9 Depression Total Score: 3 02/26/2018 4:39 PM PALEONTOLOGY TEACHER documented as of this encounter Care Teams Correctional Case Records Supervisor Relationship Specialty Start Date End Date Nelda Peña APRN LEGAL PROJECT MANAGER PCP - General Nurse Practitioner 02/02/18 [address] [facility] [address] [place], [place] [address] Jose Lopez OD MD Optometry 03/04/18 documented as of this encounter
--- OUTSIDE RECORDS SUMMARY | 2022-02-19 14:29 | XMS_ITS | Encounter Summary ---
:1980 Author Organization [place] Address [address] [place] [address] Care Team Providers Name Role Phone Nelda Peña TIN FLIPPER C JAVA DEVELOPER Primary Care Provider [phone] Jose Lopez OD Unavailable Jillian Dubois APRN C JAVA DEVELOPER Unavailable [phone] Encounter Details Date Type Department Care Team Description 04/06/2019 Travel Social History Tobacco Use Types Packs/Day [...] at Date Recorded Female 05/08/2020 12:57 PM LONG WINDER TENDER documented as of this encounter Plan of Treatment Upcoming Encounters Date Type Specialty Care Team Description 04/04/2022 Office Visit oversize load pilot escort Kaela Dubois, SHAW [facility] [address] [place], [place] [address] (Wo rk) 04/23/2022 Virtual Visit Endocrinology Lottie Cedillo PA-C [address] [place], [place] [address] (Wo rk) documented as of this encounter Visit Diagnoses Not on filedocumented in this encounter Additional Health Concerns Assessment Noted Time PHQ-9 Depression Total Score: 0 04/06/2019 1:16 PM LONG WINDER TENDER documented as of this encounter Care Teams Animal Shelter Manager Relationship Specialty Start Date End Date Nelda Peña APRN PCP - General Nurse Practitioner 02/02/[address] [place] [address] Jose Lopez OD MD Optometry 03/04/18 Jillian Dubois, Nurse Practitioner Nurse Practitioner 07/30 TIN FLIPPER [facility] [address] [place], [place] [address] documented as of this encounter
--- OUTSIDE RECORDS SUMMARY | 2022-02-19 14:29 | XMS_ITS | Encounter Summary ---
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) Lisa Hughes MD [address] [place] [address] [phone] 4 Referral ID Status Reason Start Date Expiration Date Visits Requ ested Visits Authorized [id number] Closed 12/09/2018 12/09/2019 1 1 Reason for Visit Reason Comments RECHECK dm 1 Encounter Details Date Type Department Care Team Description 12/09/2018 Office Visit Lisa Oliver Type 1 diabete s Endocrinology MD David mellitus with [address] [place] [address] complications (H) 3rd Floor [place], [place] (Primary Dx) [place] [phone] Social History Tobacco Use Types Packs/Day Years [...] at Date Recorded Female 05/08/2020 12:57 PM PRINT DEVELOPER documented as of this encounter Last Filed Vital Signs Vital Sign Reading Time Taken Comments Blood Pressure 120/80 12/09/2018 1:21 PM CDT Pulse 116 12/09/2018 1:21 PM CDT Temperature - - Respiratory Rate - - Oxygen Saturation - - Inhaled Oxygen Concentration - - Weight 107.1 kg (236 lb 3.2 oz) 12/09/2018 1:21 PM CDT Height 157.5 cm (5' 2) 12/09/2018 1:21 PM CDT Body Mass Index 43.2 12/09/2018 1:21 PM CDT documented in this encounter Patient Instructions Patient InstructionsLisa Hughes MD - 12/09/2018 1:30 PM CDT Images from the original note were not included. 1- Schedule referral to Psychology: with Nathalia Payne, PhD Follow up in 6 weeks. Lisa Hughes MD Endocrinology, Diabetes and Metabolism [facility] documented in this encounter Progress Notes Lisa Hughes MD - 12/09/2018 1:30 PM CDT Endocrinology Clinic Visit 12/09/2018 NAME: Tamiko Méndez PCP: Nelda Peña Reason for Consult: Type 1 Diabetes Requesting Provider: Nelda Peña Chief Complaint Type 1 diabetes History of Present Illness Tamiko Méndez is a 37 year old female who is seen in clinic for diabetes management. She is new to me today. Was seeing Endo fellow Dr. Abraham, last visit with her was May 2018. Briefly, she was diagnosed with type 1 diabetes at age 8 months old, with complication of proliferative DR. In college she was on insulin pump, then afterwards switched to NPH and R due to cost. Then went to Analog insulins in early 2018. Last visit in May 2018, A1c was 11.4. She was prescribed Trulicity for appetite control, as well as freestyle leatha CGMS. Interval History: A1c today is 11.3. She admits that she is in a rut. Has not been paying much attention to her diabetes. Specifically covering her meals. She is under stress at work. Also finances are an issue. She tried Trulicity but it made her feel nauseated so she stopped it. Se is unable to get a pump due to cost. Stopped using the leatha recently due to cost. Diabetes Care: Retinopathy: bilateral proliferative retinopathy, last seen by ophthalmology 05/02/2018 Nephropathy: Neg UACR 02/2018 Neuropathy: None Smoking: no Blood Pressure: no HTN Lipids: LDL 91 in Feb 2018 Macrovascular: no issues Other autoimmune: TTG negative in July 2018. Thyroid test normal 02/2018. Associated Signs/Symptoms Hypoglycemia: feels lows at <70 Hyperglycemia: increased thirst. Neuropathy: no numbness or pain in extremities Vascular Symtpoms: no claudication or edema Angina/CHF: not chest pain, no GAMBOA, no orthopnea Ulcers: No Amputations: No Current treatment strategy: Tresiba 40 units at bedtime and Novolog 16 units TID with meal and correction 04/24 over 150 Missed a lot of the breakfast doses. Takes the dinner dose at bedtime. Blood Glucose Monitoring: leatha download: 1 month data Avg 282, COV 36.9% Time in range: 19%, Above range 81%, Hypoglycemia: 0%. Pattern: sharp rise after breakfast, sharp drop overnight. Diet: She has 3 meals per day: breakfast is yogurt/ muffin, lunch is burger/ sandwich and dinner is meat/ fish/ vegetables. She snacks with chips, cereal bar, and crackles throughout the day and at night with cookies and icecream. Exercise: no routine Weight: Wt Readings from Last 4 Encounters: 12/09/18 107.1 kg (236 lb 3.2 oz) 08/18/18 108.5 kg (239 lb 4.8 oz) 06/18/18 105.9 kg (233 lb 6.4 oz) 05/14/18 105.8 kg (233 lb 3.2 oz) Problem List Patient Active Problem List Diagnosis ??? 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 blood glucose (NO BRAND SPECIFIED) test strip ??? blood glucose monitoring (NO BRAND SPECIFIED) meter device kit ??? cetirizine (ZYRTEC) 10 MG tablet ??? citalopram (CELEXA) 40 MG tablet ??? citalopram (CELEXA) 40 MG tablet ??? CLARITIN 10 MG OR TABS ??? Continuous Blood Gluc Discharging Machine Operator (FREESTYLE LEATHA 14 DAY READER) MARY ??? Continuous Blood Gluc Sensor (FREESTYLE LEATHA 14 DAY SENSOR) MISC ??? dulaglutide (TRULICITY) 0.75 MG/0.5ML pen ??? insulin aspart (NOVOLOG VIAL) 100 UNITS/ML vial ??? Insulin Degludec (TRESIBA) 100 UNIT/ML SOLN ??? Insulin Degludec 100 UNIT/ML SOLN ??? insulin syringe 31G X 516 0.5 ML MISC ??? levonorgestrel (MIRENA) 20 MCG/24HR IUD ??? LORazepam (ATIVAN) 0.5 MG tablet ??? norethindrone (MICRONOR) 0.35 MG tablet ??? augmented betamethasone dipropionate (DIPROLENE-AF) 0.05 % external cream ??? clindamycin (CLEOCIN T) 1 % external solution ??? spironolactone (ALDACTONE) 50 MG tablet ??? tretinoin (RETIN-A) 0.025 % external cream No current facility-administered medications for this visit. Allergies Allergies Allergen Reactions ? ? Hay Fever & [A.R.M.] Stuffiness, watery eyes ??? No Clinical Screening - See Comments Unknown Medical / Surgical History Past Medical History: Diagnosis Date ??? [...] SURGERY OF EYE Left diabetic retinopathy Social History Social History Socioeconomic History ??? Marital status: Single Spouse name: Not on file ??? Number of children: Not on file ??? Years of education: Not on file ??? Highest education level: Not on file Occupational History ??? Not on file Social Needs ??? Financial resource strain: Not on file ??? Food insecurity: Worry: Not on file Inability: Not on file ??? Transportation needs: Medical: Not on file Non-medical: Not on file Tobacco Use ??? Smoking status: Never Smoker ??? Smokeless tobacco: Never Used Substance and Sexual Activity ??? Alcohol use: Yes ??? Drug use: Not on file ??? Sexual activity: Yes control/protection: Condom Lifestyle ??? Physical activity: Days per week: Not on file Minutes per session: Not on file ??? Stress: Not on file Relationships ??? Social connections: Talks on phone: Not on file Gets together: Not on file Attends temple service: Not on file Active member of club or organization: Not on file Attends meetings of clubs or organizations: Not on file Relationship status: Not on file ??? Intimate partner violence: Fear of current or ex partner: Not on file Emotionally abused: Not on file Physically abused: Not on file Forced sexual activity: Not on file Other Topics Concern ??? Not on file Social History Narrative Works FT Lives in the [facility]. Family History Family History Problem Relation Age [...] ??? Macular Degeneration No family hx of ROS Constitutional: no fevers, chills, night sweats. No weight loss or fatigue. Good appetite Eyes: no vision changes, no eye redness, no diplopia Ears, Nose, mouth, throat: no hearing changes, no tinnitus, no rhinorrhea, no nasal congestion Cardiovascular: no chest pain, no orthopnea or PND, no edema, no palpitations Respiratory: no dyspnea, no cough, no sputum, no wheezing Gastrointestinal: no nausea, no vomiting, no abdominal pain, no diarrhea, no constipation Genitourinary: no dysuria, no frequency, no urgency, no nocturia Musculoskeletal: no joint pains, no back pain, no cramps, no fractures Skin: no rash, no itching, no dryness, no ulcers, no hair loss Neurological: no headache, no weakness, no numbness, no dizziness, no tremors Psychiatric: no anxiety, no sadness Hematologic/lymphatic: no easy bruising, no bleeding, no palor Physical Exam BP 120/80 Pulse 116 Ht 1.575 m (5' 2) Wt 107.1 kg (236 lb 3.2 oz) BMI 43.20 kg/m?? General: Comfortable, no obvious distress, normal body habitus Eyes: Sclera anicteric, moist conjunctiva HENT: Atraumatic, oropharynx clear, moist mucous membranes with no mucosal ulcerations Neck: Trachea midline, supple. Thyroid: Thyroid is normal in size and texture CV: Regular rhythm, normal rate. No murmurs auscultated Resp: Clear to auscultation bilaterally, good effort Abdomen: Soft, non tender, non distended. Bowel sounds heard. No organomegaly. Skin: No rashes, lesions, or subcutaneous nodules. Psych: Alert and oriented x 3. Appropriate affect, good insight Extremities: No peripheral edema Foot exam: Pulses: Dorsalis pedis: present bilaterally Posterior tibial: present bilaterally Foot exam: Vibration/Light touch: sensation present bilaterally Skin of foot: intact bilaterally Musculoskeletal: Appropriate muscle bulk and strength Lymphatic: No cervical lymphadenopathy Neuro: Moves all four extremities. No focal deficits on limited exam. Gait normal. Labs/Imaging and Outside Records Pertinent Labs were reviewed and updated in [facility]. Summary of recent findings: Lab Results Component Value Date A1C 11.5 03/21/2018 A1C 11.9 08/29/2006 TSH Date Value Ref Range Status 03/21/2018 1.59 0.40 - 4.00 mU/L Final Creatinine Date Value Ref Range Status 08/17/2018 0.80 0.52 - 1.04 mg/dL Final Recent Labs Lab Test 03/21/18 0844 CHOL 176 HDL 66 LDL 91 TRIG 96 Impression / Plan 1. Diabetes Mellitus: Type 1 Current glycemic control can be considered poor. It has stayed the same since last visit. After discussing it with her, patient is open to talking with a health psychologist about her copingissues. We will place a referral. For diabetes managements, I advised her to set a simple goal for herself, which is to work on timingof Novolog. Especially with breakfast and dinner. She felt motivated to do that. We will not make any changed to her regimen. Just work on the timing. And addressing some of the underlying psychological issues. 2. Diabetes Complications: With retinopathy. 3. Blood Pressure Management: Blood pressure is controlled. Currently is not on pharmacotherapy for this. 4.Lipid Management: Per the new ACC/TED/NHLBI guidelines, statins are recommended for individuals with diabetes aged 40-75 with LDL 70-189 without ASCVD, and for any individual with ASCVD. Currently the patient is not on a statin. 5. Smoking Status: Patient Pt is smoke free.. Test and/or medications prescribed today: Orders Placed This Encounter Procedures ??? PSYCHOLOGY REFERRAL ??? Hemoglobin A1c POCT Follow up: 1-2 months Lisa Hughes MD Endocrinology, Diabetes and Metabolism [facility] documented in this encounter Nursing Notes Kevin Stout CMA - 12/09/2018 1:30 PM CDT Dm 1 A1c Kevin Stout CMA documented in this encounter Plan of Treatment Upcoming Encounters Date Type Specialty Care Team Description 04/04/2022 Office Visit pediatric rn Kaela Dubois APRN DIRECTOR SAFETY COUNCIL [facility] [address] [place], [place] [address] (Wo rk) 04/23/2022 Virtual Visit Endocrinology Lottie Cedillo PA-C [address] [place], [place] [phone] (Wo rk) Scheduled Referrals Name Type Priority Associated Diagnoses Order S chedule PSYCHOLOGY REFERRAL Referral Routine Type 1 diabetes melli tus Ordered: 12/09/2018 with complications (H) documented as of this encounter Procedures Procedure Name Priority Date/Time Associated Diagnosis Comme nts ZZC GLUCOSE Routine 12/09/2018 2:52 PM Type 1 diabetes MONITOR, 72 HOUR, CDT mellitus with PHYS INTERP complications (H) HEMOGLOBIN A1C POCT Routine 12/09/2018 Type 1 diabetes Resul ts for this mellitus with procedure are in complications (H) the result s section. documented in this encounter Results (ABNORMAL) Hemoglobin A1c POCT (12/09/2018) [facility] Signature Hemoglobin A1C 11.3 (A) 4.3 - 6 % POCT Specimen (Source) Anatomical Location Collection Method / Collectio n Time Received Time / Laterality Volume Whole blood 12/09/2018 specimen (specimen) Lisa Hughes MD LAB - ENTER/EDIT POCT documented in this encounter Visit Diagnoses Diagnosis Type 1 diabetes mellitus with complicati ons (H) - Primary documented in this encounter Additional Health Concerns Assessment Noted Time PHQ-9 Depression Total Score: 3 02/26/2018 4:39 PM PRINT DEVELOPER documented as of this encounter Care Teams Air Traffic Instructor Relationship Specialty Start Date End Date Nelda Peña APRN PCP - General Nurse Practitioner 02/02/18 DIRECTOR SAFETY COUNCIL [address] [facility] [address] [place] [address] Jose Lopez OD MD Optometry 03/04/18 Jillian Dubois, Nurse Practitioner Nurse Practitioner 07/30 INSTRUCTOR DANCING [facility] [address] [place] [address] documented as of this encounter
--- OUTSIDE RECORDS SUMMARY | 2022-02-19 14:29 | XMS_ITS | Encounter Summary ---
:1980 Author Organization [place] Address [facility] [place] [address] Care Team Providers Name Role Phone Jonoamerica Nelda Roy TITLE CURATOR GERIATRIC NURSE PRACTITIONER Primary Care Provider [phone] Jose Lopez OD Unavailable Jillian Dubois TITLE CURATOR GERIATRIC NURSE PRACTITIONER Unavailable [phone] Reason for Visit Reason Comments Derm Problem Tamiko is here today for co nsult for acne and folliculitis Encounter Details Date Type Department Care Team Description 08/17/2018 Office Visit [facility] Dermatology Jay Salas, Acne vulgaris (Primary Dx); [address] [place] [address] Folliculitis; [address]rd Floor [address] [place] [address] Chronic [place] [address] [id number] Social History Tobacco Use Types Packs/Day Years [...] Date Recorded Female 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 documented as of this encounter Last Filed Vital Signs Vital Sign Reading Time Taken Comments Blood Pressure 129/74 08/17/2018 11:51 AM CDT Pulse 108 08/17/2018 11:51 AM CDT Temperature - - Respiratory Rate - - Oxygen Saturation - - Inhaled Oxygen Concentration - - Weight - - Height - - Body Mass Index - - documented in this encounter Patient Instructions Patient InstructionsPearsJay bustamante MD - 08/17/2018 12:30 PM CDT Benzoyl peroxide 5% wash - use in the morning while bathing - do not use at same time as tretinoin Spironolactone - take 1 pill for 1-2 weeks to make sure you don't get dizzy. If okay, increase to 2 pills at night documented in this encounter Progress Notes Jay Salas MD - 08/17/2018 12:30 PM CDT [facility] Dermatology Note Dermatology Problem List: 1. Acne vulgaris and folliculitis -benzoyl peroxide 5% wash, spironolactone 50 mg daily x1-2 weeks, then increase to 100 mg daily if well-tolerated, clindamycin 1% solution BID to the scalp, tretinoin 0.025% cream at bedtime 2. Hand dermatitis -betamethasone 0.05% ointment Encounter Date: August 17, 2018 CC: Chief Complaint Patient presents with ??? Derm Problem Tamiko is here today for consult for acne and folliculitis History of Present Illness: Ms. Tamiko Méndez is a 37 year old female who presents as a referral from Nelda Peña APRN CNP, for evaluation of acne and folliculitis. The patient reports that she has had cystic acne since shewas a teenager. The cystic nodules typically are located on her jaw line, and she has also noticed white-heads and black-heads on her cheeks. There are deeper lesions on her posterior neck and upper back that are her primary concern as they are typically painful. Last October, she started depo-provera which proved helpful at controlling her acne, but she than developed depression and switched to an IUD. She states that she picks at the lesions regularly and expresses their contents. She states that the contents smell like infection. She has recently developing hard bumps on her scalp that she would like evaluated. In addition to the acne, there are itchy, painful patches of eczema on her hands that flare intermittently. She has been applying topical cortisone to her hands with some relief. She notes that the flares of acne and folliculitis are correlated with stress. She has used OTC adapalene with mild improvement of her acne. She reports that she recently was diagnosed with adenomyosis and has a history of type I DM. The patient voices no other concerns. Past Medical History: Patient Active Problem List [...] has never used smokeless tobacco. She reports that she drinks alcohol. Family History: Family History Problem Relation Age [...] Outpatient Medications Medication Sig Dispense Refill ??? blood glucose (NO BRAND SPECIFIED) test strip Use to test blood sugar 4 times daily or as directed. 100 strip 3 ??? blood glucose monitoring (NO BRAND SPECIFIED) meter device kit Use to test blood sugar 4 times daily or as directed. 1 kit 0 ??? cetirizine (ZYRTEC) 10 MG tablet Take 10 mg by mouth daily ??? citalopram (CELEXA) 40 MG tablet Take 1 tablet (40 mg) by mouth daily 30 tablet 0 ??? CLARITIN 10 MG OR TABS 1 tab daily 30 5 ??? Continuous Blood Gluc Decorating Equipment Setter (FREESTYLE LEATHA 14 DAY READER) MARY 1 Application 5 times daily 1 Device 1 ??? Continuous Blood Gluc Sensor (FREESTYLE LEATHA 14 DAY SENSOR) MISC 1 Application 4 times daily 2 each 3 ??? dulaglutide (TRULICITY) 0.75 MG/0.5ML pen Inject 0.75 mg Subcutaneous every 7 days 2 mL 3 ? ? insulin aspart (NOVOLOG VIAL) 100 UNITS/ML vial 14 units with meals and correction 04/24 >150 4 vial 3 ??? Insulin Degludec 100 UNIT/ML SOLN Inject 40 Units Subcutaneous daily 2 vial 3 ??? insulin syringe 31G X 5/16 0.5 ML MISC 1 Application 4 times daily (before meals and nightly) 90 each 3 ??? levonorgestrel (MIRENA) 20 MCG/24HR IUD 1 each (20 mcg) by Intrauterine route continuous ??? LORazepam (ATIVAN) 0.5 MG tablet Take 0.5 mg by mouth 2 times daily as needed Allergies Allergen Reactions ? ? Hay Fever & [A.R.M.] Stuffiness, watery eyes ??? No Clinical Screening - See Comments Unknown Review of Systems: -Constitutional: Otherwise feeling well today, in usual state of health. -HEENT: Patient denies nonhealing oral sores. -Skin: As above in HPI. No additional skin concerns. Physical exam: Vitals: BP 129/74 (BP Location: Left arm, Patient Position: Sitting, Cuff Size: Adult Regular) Pulse 108 GEN: This is a well developed, well-nourished female in no acute distress, in a pleasant mood. SKIN: De La Vega phototype: II Focused examination of the face, neck, scalp, upper back, shoulders, upper chest, and hands was performed. -numerous erythematous papuels and pustules, open and closed comedones on the face, upper back and rare scattered lesion on the shoulders -There is admixed acneiform scarring on the face, chest and upper back -on the scalpe there are numerous folliculocentric papuels and pusules -No other lesions of concern on areas examined. Impression/Plan: 1. Acne vulgaris and folliculitis ?? Discussed the natural etiology of the condition as well as the risks and benefits of topical retinoids, PO spironolactone, benzoyl peroxide wash, isotretinoin ?? Start: benzoyl peroxide 5% wash, spironolactone 50 mg at bedtime x1-2 weeks, then increase to 100mg at bedtime if well-tolerated, clindamycin 1% solution BID to the scalp, isotretinoin 0.025% creamat bedtime ?? Labs today: BMP in context of spironolactone in type I diabetic ?? Consider isotretinoin if recalcitrant 2. Hand dermatitis ?? Start: betamethasone 0.05% ointment to affected areas on the hands Follow-up in 3 months, earlier for new or changing lesions. Staff Involved: Scribe/Staff Scribe Disclosure I, Jose Alvarenga, am serving as a scribe to document services personally performed by Dr. Jay Salas MD, based on data collection and the provider's statements to me. Provider Disclosure: The documentation recorded by the scribe accurately reflects the services I personally performed andthe decisions made by me. Jay Salas MD [facility] Dermatology Department of Dermatology [facility] documented in this encounter Nursing Notes Alida Mcelroy LPN - 08/17/2018 12:30 PM CDT Chief Complaint Patient presents with ??? Derm Problem Tamiko is here today for consult for acne and folliculitis Alida Mcelroy LPN documented in this encounter Plan of Treatment Upcoming Encounters Date Type Specialty Care Team Description 04/04/2022 Office Visit farmworker brooder farm Kaela Dubois APRN [facility] [address] [place] [address] (Wo rk) 04/23/2022 Virtual Visit Endocrinology Lottie Cedillo PA-C [address] [place] [address] (Wo rk) documented as of this encounter Results (ABNORMAL) Basic metabolic panel (08/17/2018 12:36 PM CDT) Analysis Performed At Patho logist Time Signature Sodium 137 133 - 144 08/17/2018 [facility] mmol/L 1:01 PM CDT [facility] Potassium 4.0 3.4 - 5.3 08/17/2018 [facility] mmol/L 1:01 PM CDT [facility] Chloride 105 94 - 109 08/17/2018 [facility] mmol/L 1:01 PM CDT [facility] Carbon Dioxide 27 20 - 32 08/17/2018 [facility] mmol/L 1:07 PM CDT [facility] Anion Gap 5 3 - 14 08/17/2018 [facility] mmol/L 1:07 PM CDT [facility] Glucose 134 (H) 70 - 99 08/17/2018 [facility] mg/dL 1:07 PM CDT [facility] Urea Nitrogen 14 7 - 30 08/17/2018 [facility] mg/dL 1:07 PM CDT [facility] Creatinine 0.80 0.52 - 08/17/2018 [facility] 1.04 mg/dL 1:07 PM CDT [facility] GFR Estimate >90 >60 08/17/2018 [facility] mL/min/{1. 1:07 PM CDT [place] 73_m2} [facility] Comment: Non GFR Calc Starting 03/17/2018, serum creatinine ba sed estimated GFR (eGFR) will be calculated using the Chronic Kidney Dise ase Epidemiology Collaboration (CKD-EPI) equation. GFR Estimate If >90 >60 mL/min/{1.73_m2} 08/17/2018 1: 07 PM [facility] [place] CDT [facility] Comment: GFR Calc Starting 03/17/2018, serum creatinine ba sed estimated GFR (eGFR) will be calculated using the Chronic Kidney Dise ase Epidemiology Collaboration (CKD-EPI) equation. Calcium 9.8 8.5 - 10.1 mg/dL 08/17/2018 1:07 PM CDT [facility] Specimen Anatomical Collection Method Collection Time Receive d Time (Source) Location / / Volume Laterality Blood specimen 08/17/2018 12:36 9 (specimen) PM CDT 12:39 PM CDT Jay Salas MD LAB - BLOOD ORDERABLES Performing Organization Address City/State/ZIP Code Phon e Number [address] [address] [facility] documented in this encounter Visit Diagnoses Diagnosis Acne vulgaris - Primary Other acne Folliculitis Other specified disease of hair and hair follicles Chronic dermatitis of hands Contact dermatitis and other eczema, due to unspecified cause documented in this encounter Additional Health Concerns Assessment Noted Time PHQ-9 Depression Total Score: 3 02/26/2018 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
--- OUTSIDE RECORDS SUMMARY | 2022-02-19 14:29 | XMS_ITS | Encounter Summary ---
:1980 Author Organization [place] Address [address] [facility] [place] [address] Care Team Providers Name Role Phone Nelda Peña APRN AIRPORT SKILLED MAINTENANCE SUPERVISOR Primary Care Provider [phone] Jose Lopez OD Unavailable Reason for Visit Reason Onset Date Comments Refill Request 07/30/2018 Celexa Encounter Details Date Type Department Care Team Description 07/30/2018 MyC Refill [facility] Jillian Dubois Ref ill Request [facility] SHAW Infante CNP (Celexa) [place] [facility] [address] SPECIALISTS [place] [facility] [address] 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 Per notes from last time she requested refill, patient was to have visit with Dr. Young OR schedule with Jillian Dubois for annual for continued refills from her. Patient had visit scheduled with Dr. Young yesterday but missed appointment due to presented to [facility] of [facility] for visit. Will seek approval from Jillian Dubois for a short-term refill until patient reschedules with Dr. Young. documented in this encounter Plan of Treatment Upcoming Encounters Date Type Specialty Care Team Description 04/04/2022 Office Visit medical parasitologist Kaela Dubois APRN AIRPORT SKILLED MAINTENANCE SUPERVISOR [facility] [address] [place], [place] [address] (Wo rk) 04/23/2022 Virtual Visit Endocrinology Lottie Cedillo PA-C [address] [place] [address] (Wo rk) documented as of this encounter Visit Diagnoses Diagnosis 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, unspecified depression episode severity (H) documented in this encounter Additional Health Concerns Assessment Noted Time PHQ-9 Depression Total Score: 3 02/26/2018 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
--- OUTSIDE RECORDS SUMMARY | 2022-02-19 14:29 | XMS_ITS | Encounter Summary ---
:1980 Author Organization [place] Address [facility] [place] [address] Care Team Providers Name Role Phone Nelda Peña CORRECTIONAL CAPTAIN GOLF CLUB HEAD INSPECTOR Primary Care Provider [phone] Jose Lopez OD Unavailable Jillian Dubois CORRECTIONAL CAPTAIN GOLF CLUB HEAD INSPECTOR Unavailable [phone] Reason for Visit Reason Onset Date Comments Refill Request 11/13/2018 Encounter Details Date Type Department Care Team Description 11/13/2018 Refjose [facility] Cristy Chapa, RN Refill Request [address] [place] [address] 3rd Floor [place] [phone] Social History Tobacco Use Types Packs/Day [...] at Date Recorded Female 05/08/2020 12:57 PM STEWARD/STEWARDESS CHIEF 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 Clinic visit notes of 06/18/2018: Cont Tresiba 40 unit(s) daily Type 1, sent to clinic coordinators for scheduling. Sent to Provider Ibeth Cavanaugh for signature Cristy Chapa RN on 11/13/2018 at 3:33 PM documented in this encounter Plan of Treatment Upcoming Encounters Date Type Specialty Care Team Description 04/04/2022 Office Visit scraper hand Kaela Dubois APRN [facility] SP ECIALISTS [address] [place] [address] (Wo rk) 04/23/2022 Virtual Visit Endocrinology Lottie Cedillo PA-C [address] [place], [place] [address] (Wo rk) documented as of this encounter Visit Diagnoses Diagnosis Type 1 diabetes mellitus with complicati ons (H) - Primary documented in this encounter Additional Health Concerns Assessment Noted Time PHQ-9 Depression Total Score: 3 02/26/2018 4:39 PM STEWARD/STEWARDESS CHIEF CARGO VESSEL documented as of this encounter Care Teams Restorative Rehab Aide Relationship Specialty Start Date End Date Nelda Peña APRN PCP - General Nurse Practitioner 02/02/18 [facility] [address] [facility] [address] [place] [address] Jose Lopez, SHELL ARRIOLA Optometry 03/04/18 Jillian Dubois, Nurse Practitioner Nurse Practitioner 07/30 CORRECTIONAL CAPTAIN [facility] [address], [place] [address] documented as of this encounter
--- OUTSIDE RECORDS SUMMARY | 2022-02-19 14:29 | XMS_ITS | Encounter Summary ---
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 documented as of this encounter Plan of Treatment Upcoming Encounters Date Type Specialty Care Team Description 04/04/2022 Office Visit automotive parts specialist Kaela Dubois, SHAW [facility] [address] [place], [place] [address] (Wo rk) 04/23/2022 Virtual Visit Endocrinology Lottie Cedillo PA-C [address] [place] [phone] (Wo rk) documented as of this encounter Visit Diagnoses Not on filedocumented in this encounter Additional Health Concerns Assessment Noted Time PHQ-9 Depression Total Score: 3 02/26/2018 4:39 PM PHOTO STUDIO ASSISTANT documented as of this encounter Care Teams Nurse Educator Relationship Specialty Start Date End Date Nelda Peña APRN PCP - General Nurse Practitioner 02/02/[address] [place] [address] Jose Lopez OD MD Optometry 03/04/18 Jillian Dubois, Nurse Practitioner Nurse Practitioner 07/30 SIGNS SALES REPRESENTATIVE [facility] [address] [place], [place] [address] documented as of this encounter
--- OUTSIDE RECORDS SUMMARY | 2022-02-19 14:29 | XMS_ITS | Encounter Summary ---
:1980 Author Organization [place] Address [facility] [place] [address] Care Team Providers Name Role Phone Nelda Peña APRN CONCIERGE MANAGER Primary Care Provider [phone] Jose Lopez OD Unavailable Jillian Dubois APRN CONCIERGE MANAGER Unavailable [phone] Encounter Details Date Type Department Care Team Description 08/17/2018 Orders Only [facility] Acne vulgaris; [address] 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 documented as of this encounter Plan of Treatment Upcoming Encounters Date Type Specialty Care Team Description 04/04/2022 Office Visit blade bender furnace tender Kaela Dubois APRN [facility] [address] [place] [address] (Wo rk) 04/23/2022 Virtual Visit Endocrinology Lottie Cedillo PA-C [address] [place] [address] (Wo rk) documented as of this encounter Procedures Procedure Name Priority Date/Time Associated Diagnosis Comme nts TISSUE TRANSGLUTAMINASE Routine 08/17/2018 12:36 Type 1 diabet es Results for this EUSEBIO IGA AND IGG PM CDT mellitus with procedure a re in complications (H) the result s section. BASIC METABOLIC PANEL Routine 08/17/2018 12:36 Acne vulgaris R esults for this PM CDT procedure are i n the results section. documented in this encounter Results Tissue transglutaminase eusebio IgA and IgG (08/17/2018 12:36 PM CDT) [facility] Method Time Signature Tissue 1 <7 U/mL 08/18/2018 [facility] Transglutaminase 11:30 AM CDT [facility] Antibody IgA [facility] Comment: Negative The tTG-IgA assay has limited utility fo r patients with decreased levels of IgA. Screening for celiac disease should include IgA testing to rule out selective IgA deficiency and to guide se lection and interpretation of serological testing. tTG-IgG testing may be positive in celiac disease patients with IgA deficiency. Tissue Transglutaminase Eusebio <1 <7 U/mL 08/18/2018 1 1:30 AM [facility] IgG CDT [facility] Comment: Negative Specimen Anatomical Collection Method Collection Time Receive d Time (Source) Location / / Volume Laterality Blood specimen 08/17/2018 12:36 9 (specimen) PM CDT 12:39 PM CDT Jeremy Ruanpeng MD LAB - BLOOD ORDERABLES Performing Organization Address City/State/ZIP Code Phon e Number [facility] [address] (ABNORMAL) Basic metabolic panel (08/17/2018 12:36 PM CDT) Analysis Performed At Patho logist Time Signature Sodium 137 133 - 144 08/17/2018 [facility] mmol/L 1:01 PM CDT [facility] Potassium 4.0 3.4 - 5.3 08/17/2018 [facility] mmol/L 1:01 PM CDT [facility] Chloride 105 94 - 109 08/17/2018 [facility] mmol/L 1:01 PM T [facility] Carbon Dioxide 27 20 - 32 08/17/2018 [facility] mmol/L 1:07 PM T [facility] Anion Gap 5 3 - 14 08/17/2018 [facility] mmol/L 1:07 PM T [facility] Glucose 134 (H) 70 - 99 08/17/2018 [facility] mg/dL 1:07 PM T [facility] Urea Nitrogen 14 7 - 30 08/17/2018 [facility] mg/dL 1:07 PM T [facility] Creatinine 0.80 0.52 - 08/17/2018 [facility] 1.04 mg/dL 1:07 PM T [facility] GFR Estimate >90 >60 08/17/2018 [facility] mL/min/{1. 1:07 PM [facility] 73_m2} [facility] Comment: Non GFR Calc Starting 03/17/2018, serum creatinine ba sed estimated GFR (eGFR) will be calculated using the Chronic Kidney Dise ase Epidemiology Collaboration (CKD-EPI) equation. GFR Estimate If >90 >60 mL/min/{1.73_m2} 08/17/2018 1: 07 PM [facility] Comment: GFR Calc Starting 03/17/2018, serum creatinine ba sed estimated GFR (eGFR) will be calculated using the Chronic Kidney Dise ase Epidemiology Collaboration (CKD-EPI) equation. Calcium 9.8 8.5 - 10.1 mg/dL 08/17/2018 1:07 PM T [facility] Specimen Anatomical Collection Method Collection Time Receive d Time (Source) Location / / Volume Laterality Blood specimen 08/17/2018 12:36 9 (specimen) PM CDT 12:39 PM CDT Jya Salas MD LAB - BLOOD ORDERABLES Performing Organization Address City/State/ZIP Code Phon e Number [address] [address] [facility] documented in this encounter Visit Diagnoses Diagnosis Acne vulgaris Other acne Type 1 diabetes mellitus with complicati ons (H) documented in this encounter Additional Health Concerns Assessment Noted Time PHQ-9 Depression Total Score: 3 02/26/2018 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
--- OUTSIDE RECORDS SUMMARY | 2022-02-19 14:29 | XMS_ITS | Encounter Summary ---
:1980 Author Organization [place] Address [facility]0 [facility] 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 documented as of this encounter Plan of Treatment Upcoming Encounters Date Type Specialty Care Team Description 04/04/2022 Office Visit instructor military science Kaela Dubois APRN CUSTOMER GREETER [facility] [address] [place], [place] [address] (Wo rk) 04/23/2022 Virtual Visit Endocrinology Lottie Cedillo PA-C [address] [place], [place] [address] (Wo rk) documented as of this encounter Visit Diagnoses Diagnosis Type 1 diabetes mellitus with complicati ons (H) documented in this encounter Additional Health Concerns Assessment Noted Time PHQ-9 Depression Total Score: 3 02/26/2018 4:39 PM DIAMOND CUTTER documented as of this encounter Care Teams Associate Professor Of Engineering Relationship Specialty Start Date End Date Nelda Peña APRN CUSTOMER GREETER PCP - General Nurse Practitioner 02/02/18 [address] [facility] [address] [place], [place] [address] Jose Lopez OD MD Optometry 03/04/18 documented as of this encounter
--- OUTSIDE RECORDS SUMMARY | 2022-02-19 14:29 | XMS_ITS | Encounter Summary ---
:1980 Author Organization [place] Address [address] [place] [address] Care Team Providers Name Role Phone Nelda Peña INFORMATICS ANALYST IT PROJECT LEAD Primary Care Provider [phone] Jose Lopez OD Unavailable Jillian Dubois APRN IT PROJECT LEAD Unavailable [phone] Encounter Details Date Type Department Care Team Description 08/17/2018 Travel Social History Tobacco Use Types Packs/Day [...] Date Recorded Female 05/08/2020 12:57 PM SUPERVISOR POWDER AND PRIMER CANNING documented as of this encounter Plan of Treatment Upcoming Encounters Date Type Specialty Care Team Description 04/04/2022 Office Visit gas welder Kaela Dubois, [facility] [address] [place], [place] [address] (Wo rk) 04/23/2022 Virtual Visit Endocrinology Lottie Cedillo PA-C [address] [place] [id number] (Wo rk) documented as of this encounter Visit Diagnoses Not on filedocumented in this encounter Additional Health Concerns Assessment Noted Time PHQ-9 Depression Total Score: 3 02/26/2018 4:39 PM SUPERVISOR POWDER AND PRIMER CANNING documented as of this encounter Care Teams Clay Grinder Relationship Specialty Start Date End Date Nelda Peña APRN PCP - General Nurse Practitioner 02/02/[address] [place] [address] Jose Lopez OD MD Optometry 03/04/18 Jillian Dubois, Nurse Practitioner Nurse Practitioner 07/30 INFORMATICS ANALYST [facility] [address] [place], [place] [address] documented as of this encounter
--- OUTSIDE RECORDS SUMMARY | 2022-02-19 14:29 | XMS_ITS | Encounter Summary ---
:1980 Author Organization [place] Address [facility] [place] [address] Care Team Providers Name Role Phone Nelda Peña Kirill TRANS ROUTER STEAMFITTER Primary Care Provider Jose Lopez OD Unavailable Jillian Dubois TRANS ROUTER STEAMFITTER Unavailable Reason for Visit Reason Comments Derm Problem Acne follow up. Tamiko stat es spironolactone worked well for her but she has run out of medicatio n. Derm Problem Dermatitis follow up, Sean a states It has kind of spread. She notes both hands are now cracked a nd irritated. Encounter Details Date Type Department Care Team Description 04/09/2019 Office Visit [facility] Dermatology Jay Salas, Acne vulgaris (Primary Dx); [address] [facility] [place] Chronic dermatitis of hands 3rd Floor [address] [place] [address] Social History Tobacco Use [...] Date Recorded Female 05/08/2020 12:57 PM QUALITY ASSURANCE TECH documented as of this encounter Last Filed Vital Signs Vital Sign Reading Time Taken Comments Blood Pressure 118/78 04/09/2019 10:56 AM QUALITY ASSURANCE TECH Pulse 92 04/09/2019 10:56 AM QUALITY ASSURANCE TECH Temperature - - Respiratory Rate - - Oxygen Saturation - - Inhaled Oxygen Concentration - - Weight - - Height - - Body Mass Index - - documented in this encounter Progress Notes Jay Salas MD - 04/09/2019 10:45 AM CST [facility] Dermatology Note Dermatology Problem List: 1. Acne vulgaris and folliculitis -benzoyl peroxide 5% wash, spironolactone 50 mg daily x1-2 weeks, then increase to 100 mg daily if well-tolerated, clindamycin 1% solution BID to the scalp, tretinoin 0.025% cream at bedtime ?? 2. Hand dermatitis -betamethasone 0.05% ointment BID under occlusion Encounter Date: Apr 09, 2019 CC: Chief Complaint Patient presents with ??? Derm Problem Acne follow up. Tamiko states spironolactone worked well for her but she has run out of medication. ??? Derm Problem Dermatitis follow up, Tamiko states It has kind of spread. She notes both hands are now crackedand irritated. History of Present Illness: Ms. Tamiko Méndez is a 38 year old female who presents as a follow-up for acne vulgaris. The patient was last seen 08/17/18 when she started on benzoyl peroxide wash, spironolactone, clindamycin, and tretinoin. Today, the patient reports that she has been doing well and that the treatment regimen provided significant relief of her acne. She notes that around 12/2018, she began to develop a few new deeper cystic lesions on her chin, and after she stopped taking her spironolactone in January, her skin began to feel more oily. She also notes that she has continued to develop dryness, fissures, and itching on her hands as the weather has been cooling down in the winter. She has been using the betameth asone as well as OTC topical moisturizers (Gold Salgado Eczema Relief). Additionally, the patient reports that last week, she developed a period of menstruation despite her having an IUD. She inquires as to whether her discontinuing spironolactone recently could be related to this. Finally, she notes that she has been developing small flaps of skin protruding from her under arms which have been developing as she has gained weight and gotten older. She states that these have been irritating when they rub against clothing, and she is self conscious about them. The patient voices no other concerns. Past [...] groin, or armpits 50 g 1 ??? blood glucose (NO BRAND SPECIFIED) [...] by mouth daily 30 tablet 0 ??? clindamycin (CLEOCIN T) 1 % external solution Apply topically 2 times daily To the scalp 120 mL 3 ? ? insulin aspart (NOVOLOG VIAL) 100 UNITS/ML vial 14 units with meals and correction 04/24 >150 4 vial 3 ??? Insulin Degludec (TRESIBA) 100 UNIT/ML SOLN Inject 42 Units Subcutaneous daily Increase by 1 unit every 5-7 days until fasting blood sugar is at 90 - 140 each morning as long as no overnight or early childhood education worker lows. 10 mL 11 ??? LORazepam (ATIVAN) 0.5 MG tablet Take 0.5 mg by mouth 2 times daily as needed ??? norethindrone (MICRONOR) 0.35 MG tablet Take 1 tablet (0.35 mg) by mouth daily 84 tablet 3 ??? citalopram (CELEXA) 40 MG tablet Take 1 tablet (40 mg) by mouth daily (Patient not taking: Reported on 04/09/2019) 60 tablet 1 ??? CLARITIN 10 MG OR TABS 1 tab daily 30 5 ??? Continuous Blood Gluc Golf Sales Manager (FREESTYLE LEATHA 14 DAY READER) MARY 1 Application 5 times daily 1 Device 1 ??? Continuous Blood Gluc Sensor (FREESTYLE LEATHA 14 DAY SENSOR) MISC 1 Application 4 times daily 2 each 3 ??? insulin syringe 31G X /16 0.5 ML MISC 1 Application 4 times daily (before meals and nightly) 90 each 3 ??? levonorgestrel (MIRENA) 20 MCG/24HR IUD 1 each (20 mcg) by Intrauterine route continuous ??? spironolactone (ALDACTONE) 50 MG tablet Take 2 tablets (100 mg) by mouth At Bedtime (Patient nottaking: Reported on 08/18/2018) 60 tablet 3 ??? tretinoin (RETIN-A) 0.025 % external cream Apply topically At Bedtime Pea- sized amount to the whole face. Start every other night and increase frequency over a period of weeks (Patient not taking: Reported on 08/18/2018) 45 g 3 Allergies Allergen Reactions ? ? Hay Fever & [A.R.M.] Stuffiness, watery eyes ??? No Clinical Screening - See Comments Unknown Review of Systems: -Constitutional: Otherwise feeling well today, in usual state of health. -HEENT: Patient denies nonhealing oral sores. -Skin: As above in HPI. No additional skin concerns. Physical exam: Vitals: BP 118/78 Pulse 92 GEN: This is a well developed, well-nourished female in no acute distress, in a pleasant mood. SKIN: Focused examination of the face, upper chest, upper back, and hands was performed. -De [place] Vega skin type: II -few erythematous papules and pustules along the chin, jaw line, and posterior neck -erythematous scaly plaques with fissures on both palms and fingers -No other lesions of concern on areas examined. Impression/Plan: 1. Acne vulgaris: improved with incomplete control of symptoms - we discussed the risks, benefits, and efficacy of increasing her spironolactone dose. The patient is agreeable to this plan. - increase spironolactone to 150 mg daily -continue benzoyl peroxide 5% wash, clindamycin 1% solution to the scalp, tretinoin 0.025% cream at bedtime -recommended that she follow up with her CARRIER ASSOCIATE for evaluation of her irregular menstruation 2. Hand Dermatitis - Recommended more frequent application of betamethasone ointment as well as applying it under occlusion of cotton gloves at night time. The patient is agreeable to this plan - continue betamethasone 0.05% ointment BID -also recommended the use of OTC topical moisturizers such as CeraVe, Cetaphil, and Vanicream as well as the avoidance of harsh detergents and soaps that can be irritating to the skin 3. Pt reported lesions in the axillae: suspected acrochordons. She will follow up at a later date for evaluation and treatment of these lesions Follow-up in 3 months, earlier for new [...] decisions made by me. Jay Salas MD Security Tech of Dermatology Department of Dermatology [facility] [employer] ITY ASSURANCE TECH documented in this encounter Nursing Notes Theodora Ludwig LPN - 04/09/2019 10:45 AM CST Dermatology Rooming Note Tamiko Méndez's goals for this visit include: Chief Complaint Patient presents with ??? Derm Problem Acne follow up. Tamiko states spironolactone worked well for her but she has run out of medication. ??? Derm Problem Dermatitis follow up, Tamiko states It has kind of spread. She notes both hands are now crackedand irritated. Theodora Ludwig LPN ITY ASSURANCE TECH documented in this encounter Plan of Treatment Upcoming Encounters Date Type Specialty Care Team Description 04/04/2022 Office Visit ear nose and throat specialist Kaela Dubois APRN [facility] [address] [place], [place] [address] (Wo rk) 04/23/2022 Virtual Visit Endocrinology Lottie Cedillo PA-C [address] [place] [address] (Wo rk) documented as of this encounter Visit Diagnoses Diagnosis Acne vulgaris - Primary Other acne Chronic dermatitis of hands Contact dermatitis and other eczema, due to unspecified cause documented in this encounter Additional Health Concerns Assessment Noted Time PHQ-9 Depression Total Score: 0 04/06/2019 1:16 PM QUALITY ASSURANCE TECH documented as of this encounter Care Teams Allocation Analyst Relationship Specialty Start Date End Date Nelda Peña, TRANS ROUTER PCP - General Nurse Practitioner 02/02/18 STEAMFITTER [address] [facility] EM[facility]PART[facility] [address] [place] [address] Jose Lopez OD MD Optometry 03/04/18 Jillian Dubois, Nurse Practitioner Nurse Practitioner 07/30 TRANS ROUTER STEAMFITTER [facility] [address] [place] [address] documented as of this encounter
--- OUTSIDE RECORDS SUMMARY | 2022-02-19 14:29 | XMS_ITS | Encounter Summary ---
:1980 Author Organization [place] Address [address] [place] [address] Care Team Providers Name Role Phone Nelda Peña SLD TEACHER BOAT GARNISHER Primary Care Provider [phone] Jose Lopez OD Unavailable Jillian Dubois APRN BOAT GARNISHER Unavailable [phone] Encounter Details Date Type Department Care Team Description 06/09/2019 Travel Social History Tobacco Use Types Packs/Day [...] at Date Recorded Female 05/08/2020 12:57 PM TIMBER ESTIMATOR documented as of this encounter Plan of Treatment Upcoming Encounters Date Type Specialty Care Team Description 04/04/2022 Office Visit hob mill operator Kaela Dubois, [facility] [address] [place], [place] [address] (Wo rk) 04/23/2022 Virtual Visit Endocrinology Lottie Cedillo PA-C [address] [place], [place] [address] (Wo rk) documented as of this encounter Visit Diagnoses Not on filedocumented in this encounter Additional Health Concerns Assessment Noted Time PHQ-9 Depression Total Score: 0 04/06/2019 1:16 PM TIMBER ESTIMATOR documented as of this encounter Care Teams Swatch Clerk Relationship Specialty Start Date End Date Nelda Peña APRN PCP - General Nurse Practitioner 02/02/[address] [place] [address] Jose Lopez OD MD Optometry 03/04/18 Jillian Dubois, Nurse Practitioner Nurse Practitioner 07/30 SLD TEACHER [facility] [address] [place], [place] [address] documented as of this encounter
--- OUTSIDE RECORDS SUMMARY | 2022-02-19 14:29 | XMS_ITS | Encounter Summary ---
:1980 Author Organization [place] Address [facility] [place] [address] Care Team Providers Name Role Phone Nelda Peña WEIGH TANK OPERATOR PRODUCTION PLANNING MANAGER Primary Care Provider [phone] Jose Lopez OD Unavailable Jillian Dubois WEIGH TANK OPERATOR PRODUCTION PLANNING MANAGER Unavailable [phone] Nelda Peña WEIGH TANK OPERATOR PRODUCTION PLANNING MANAGER Unavailable [phone] Seda Moy MD Unavailable [phone] Lisa Hughes MD Unavailable Jay Salas MD Unavailable Jay Salas MD Unavailable Nelda Peña APRN PRODUCTION PLANNING MANAGER Unavailable [phone] Nawaf Morocho MD Unavailable Nawaf Morocho MD Unavailable Lottie Cedillo PA-C Unavailable Azeem Lindsey WEIGH TANK OPERATOR PRODUCTION PLANNING MANAGER Unavailable [phone] Teodoro Joaquin MD Unavailable [phone] Jillian Dubois WEIGH TANK OPERATOR PRODUCTION PLANNING MANAGER Unavailable [phone] Mynor Barry MD Unavailable FlakitaNelda ghotra WEIGH TANK OPERATOR PRODUCTION PLANNING MANAGER Unavailable [phone] Nawaf Morocho MD Unavailable Mynor Barry MD Unavailable Teodoro Joaquin MD Unavailable [phone] Nelda Peña WEIGH TANK OPERATOR PRODUCTION PLANNING MANAGER Unavailable [phone] Reason for Visit Reason Onset Date Comments Appointment 07/30/2018 Encounter Details Date Type Department Care Team Description 07/30/2018 Telephone [facility] Bharti Hanna Appointment [place] [address] [address] [address] [facility] [address] 3rd Fl,[facility] [address] [place] [phone] Social History Tobacco Use Types Packs/Day [...] at Date Recorded Female 05/08/2020 12:57 PM ROLLER STRUCTURAL MILL documented as of this encounter Miscellaneous Notes Telephone Encounter - Bharti Hanna - 07/30/2018 11:53 AM CDT LVM for pt bout rescheduling missed appt Telephone Encounter - Bharti Hanna - 07/30/2018 11:53 AM CDT ----- Message from Sanjay Wasnick sent at 07/30/2018 8:17 AM CDT ----- Regarding: PT would like to reschedule her appt. with Whitney Young Contact: PT was scheduled this morning with Whitney Young but [facility] instead so she missed her appt. Please follow up with the PT to reschedule. Thank you, [facility]jay [facility] documented in this encounter Plan of Treatment Upcoming Encounters Date Type Specialty Care Team Description 04/04/2022 Office Visit pattern developer Kaela Dubois APRN PRODUCTION PLANNING MANAGER [facility] [address] [place], [place] [address] (Wo rk) 04/23/2022 Virtual Visit Endocrinology Lottie Cedillo PA-C [address] [place], [place] [address] (Wo rk) documented as of this encounter Visit Diagnoses Not on filedocumented in this encounter Additional Health Concerns Infection Onset Date Last Indicated Resolved Time Rule Out COVID-19 02/08/2022 02/08/2022 02/10/2022 1:3 0 PM ROLLER STRUCTURAL MILL Assessment Noted Time PHQ-9 Depression Total Score: 3 02/26/2018 4:39 PM ROLLER STRUCTURAL MILL documented as of this encounter Care Teams Professor Sculpture Relationship Specialty Start Date End Date Nelda Peña, PCP - General Nurse Practitioner 02/02/18 WEIGH TANK OPERATOR PRODUCTION PLANNING MANAGER [address] [facility] [address] [place] [address] Jose Lopez OD MD Optometry 03/04/18 Jillian Dubois Nurse Practitioner Nurse Practitioner 08/17/18 SHAW Infante PRODUCTION PLANNING MANAGER [facility] [address] [place], [place] [address] Nelda Peña, Assigned PCP 03/12/20 03/03/21 WEIGH TANK OPERATOR PRODUCTION PLANNING MANAGER [address] [facility] [address] [place], [place] [address] Seda Moy Assigned OBGYN Provider 01/21/20 01/27/21 MD Jai [address] [place], [place] [address] Lisa Hughes, Assigned Endocrinology 01/21/20 06/13/20 MD Provider [address] [place], [place] [address] Jay Salas MD Assigned Pediatric 01/21/20 04/30/20 909 [facility] Specialist Provider [place], [place] [address] Jay Salas MD Assigned Surgical 01/21/20 04/29/20 909 [facility] Provider [place], [place] [address] Nelda Peña, Assigned PCP 08/19/19 03/11/20 WEIGH TANK OPERATOR PRODUCTION PLANNING MANAGER 420 [facility]PART[facility] [address] [place], [place] [address] Nawaf Morocho MD Dermatology 04/24/[address] [address] Nawaf Morocho, Assigned Surgical 04/30/[address] [address] Lottie Cedillo, Assigned Endocrinology 06/14/20 PA-C Provider [address] [place], [place] [phone] Azeem Lindsey, Assigned Behavioral 06/18/20 WEIGH TANK OPERATOR [facility] Health Provider [address] [place] [address] Liz Kirkland, Assigned Surgical 12/10/20 MD Teodoro Provider [address] [place] [address] Jillian Dubois Assigned OBGYN Provider 01/28/21 SHAW Infante [facility] [address] [place] [address] Mynor Barry, Assigned PCP 03/04/21 04/07/21 [address] [place] [address] Nelda Peña, Assigned PCP 04/08/21 08/31/21 [facility] 420 [facility] [address] [place], [place] [phone] Nawaf Morocho, Assigned Surgical 04/29/21 Provider [facility] [address] [facility] [address] [place], [place] [phone] Mynor Barry, Assigned PCP 09/01/21 10/05/21 [address] [place], [place] [phone] Liz Kirkland, Assigned Surgical 10/27/21 MD Teodoro Provider [address] [facility] [address] Nelda Peña, Assigned PCP 10/06/21 WEIGH TANK OPERATOR PRODUCTION PLANNING MANAGER 420 [facility] [address] [place] [address] documented as of this encounter
--- OUTSIDE RECORDS SUMMARY | 2022-02-19 14:30 | XMS_ITS | Encounter Summary ---
:1980 Author Organization [place] Address [facility] [place] [address] Care Team Providers Name Role Phone Nelda Peña FIELD OPERATIONS SUPERVISOR SEISMOGRAPH OPERATOR Primary Care Provider [phone] Jose Lopez OD Unavailable Reason for Referral Patient Education - Closed Specialty Diagnoses / Procedures Referred By Contact Refer red To Contact Diagnoses 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) Jeremy Abraham MD [place] [address] [place] [address] Fax: Referral ID Status Reason Start Date Expiration Date Visits Requ ested Visits Authorized [id number] Closed 06/18/2018 06/18/2019 1 1 Reason for Visit Reason Comments RECHECK DM TYPE 1 Encounter Details Date Type Department Care Team Description 06/18/2018 Office Visit Jeremy Campo Type 1 diab etes mellitus Endocrinology with complications (H) [address] [facility] (Primary Dx) 3rd Floor [place], [place] [address] [facility] [address] [place] [address] (work) Social History Tobacco Use Types Packs/Day Years [...] at Date Recorded Female 05/08/2020 12:57 PM 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 -- No change in insulin regimen (Tresiba 40 unit(s) daily and Novolog 16 unit(s) with meals) -- take Novolog before you eat -- Samantha CGM -- start Trulicity to help with craving and weight loss -- please let us know if you have low sugar (<70) or persistent AM glucose < 100 If you have any questions or concerns, our clinic phone number is [phone]. For urgent questions please contact Endocrinology on-call [phone]. Jeremy Abraham MD Endocrine Fellow documented in this encounter Progress Notes Jeremy Abraham MD - 06/18/2018 8:10 AM CDT ENDOCRINE CLINIC NOTE Chief complaint: Tamiko is a 37 year old female seen for 1 month follow up. HISTORY OF PRESENT ILLNESS Complications: Retinopathy: bilateral proliferative retinopathy, last seen by ophthalmology 05/02/2018 Nephropathy: Neg UACR 02/2018 Neuropathy: None T1DM was diagnosed in 1981. Patient was 8 month old and her parents found that she always wetted diapers. She was started on insulin. She was in the hospital once in 1995 for insulin change. Denied h/oDKA/severe hyperglycemia. She passed out once she was in 2nd grade. She senses hypoglycemia with dizziness and frustration when glucose in 150s. She treated with glucose tab when she feels low. When she feels it at night/ wakes up at night, she does not check, just treats. Hypoglycemia occurs 1-2/ month. She has reading <70 about once/ month and could not remember last time she had reading <50.She feels numbness when glucose is high. Previous DM management includes: Insulin pump when she was in college Then switch to NPH and RI given insurance issues. Patient reported taking the following insulin regimen for about 10 years (TDD ~80 unit(s)/day or 0.75 unit(s)/kg/day) : - NPH 16 unit(s) BID - Regular insulin 16 units TID with meals - Regular insulin 1/50 > 125 She used to check glucose 2-3 times/day but rarely check now, since it is always high (300s-350s) Of note, on care everywhere, when she was last seen by Dr. Barajas at 08/2015, she was on NPH 25 unit(s) am and 18 unit(s) pm with RI 2/15 for morning and dinner and 1/15 for lunch (Basal 34 unit(s)/day). 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 Alcohol 2-3 drinks/month, smoking marijuana. No plan for . No T1DM/ thyroid disease in family. Interval history Since last visit, patient was back on Analog insulin. She prefers vial because of lower cost. She is taking Tresiba 40 unit(s) ar night and novolog 16 unit(s) TID with meal. She takes novolog about 1 h after meal and might miss the dose sometimes. She has 3 meals per day: breakfast is yogurt/ muffin, lunch is burger/ sandwich and dinner is meat/ fish/ vegetables. She snacks with chips, cereal bar, and crackles throughout the day and at night with cookies and icecream. She reports not regular checking fingerstick. She was seen by our CDE, Stephany and patient is interested in Eversense CGM. Patient is not ready forcarb counting. She was put in Samantha CGM and data is reviewed today. The censor fell off before 10 days. Overall, she is happy with her new management given no lows that she most concern about. She knows there's lot of thing she need to work on and still interested in weight loss and help with craving/hunger. [employer]ine Samantha Pro CGM 05/29/2018-06/05/2018. Average glucose 296, SD 114.7 Below 70: 0% 70-180: 21% >180: 79% Co-efficient of Variation (CV): 38.8% (stable <36%) Overall and daily pattern showed great fasting glucose in 70-180. Hyperglycemia after breakfast and dinner and sometimes throughout the day. Hyperglycemia lasted about 2-3 hours before glucose normalized. REVIEW OF SYSTEMS 10 point negative except as mentioned in HPI Past Medical/Surgical History: Past Medical History: Diagnosis Date ??? Acne [...] retinopathy Medications Current Outpatient Medications Medication ??? blood glucose (NO BRAND SPECIFIED) test strip ??? blood glucose monitoring (NO BRAND SPECIFIED) meter device kit ??? cetirizine (ZYRTEC) 10 MG tablet ??? citalopram (CELEXA) 40 MG tablet ??? CLARITIN 10 MG OR TABS ??? Continuous Blood Gluc Optical Goods Drill Operator (FREESTYLE SAMANTHA 14 DAY READER) MARY ??? Continuous Blood Gluc Sensor (FREESTYLE SAMANTHA 14 DAY SENSOR) MISC ??? insulin aspart (NOVOLOG VIAL) 100 UNITS/ML vial ??? Insulin Degludec 100 UNIT/ML SOLN ??? insulin syringe 31G X 5/16 0.5 ML MISC ??? levonorgestrel (MIRENA) 20 MCG/24HR IUD ??? LORazepam (ATIVAN) 0.5 MG tablet ??? dulaglutide (TRULICITY) 0.75 MG/0.5ML pen No current facility-administered medications for this visit. Allergies Allergies Allergen Reactions ? ? Hay Fever & [A.R.M.] Stuffiness, watery eyes ??? No Clinical Screening - See Comments Unknown Family History family history includes Anxiety Disorder in her mother; Asthma in her mother; Back Pain in her maternal grandmother; Diabetes Type 2 in her maternal grandfather and paternal grandmother; Glaucoma in her father; Hypertension in her father; Impaired Fasting Glucose in her mother; Kidney Disease in her ma ternal grandfather; Obesity in her sister; Osteoarthritis in her mother; Osteoporosis in her maternal grandmother; Seasonal/Environmental Allergies in her mother. Social History Social History Tobacco Use ??? Smoking status: Never Smoker ??? Smokeless tobacco: Never Used Substance Use Topics ??? Alcohol use: Yes Physical Exam Ht 1.575 m (5' 2.01) Wt 105.9 kg (233 lb 6.4 oz) BMI 42.68 kg/m?? Body mass index is 42.68 kg/m??. GENERAL : In no apparent distress, obese SKIN: Normal color, normal temperature, EYES: EOMI, No scleral icterus MOUTH: Moist, pink NECK: No visible masses. RESP: normal breathing, equally move bilaterally NEURO: awake, alert, responds appropriately to questions. Cranial nerves intact. DATA REVIEW Labs/Imaging CGM data as above A1C 11.4 TSH Date Value Ref Range Status 03/21/2018 1.59 0.40 - 4.00 mU/L Final ASSESSMENT/PLAN: Tamiko is a 37 year old female with depression, poor control T1DM with proliferative DR seen for 1 month follow up ## T1DM with proliferative DR Pt has longstanding T1DM with proliferative DR. No other micro/macrovascular complication. Denied hypoglycemia unawareness. Patient is more engaged in treatment and willing to make lifestyle change. Weaddressed her main concern hypoglycemia, so pt is more comfortable with giving insulin knowing therehas been no hypoglycemia. Meal time hyperglycemia and hunger/craving/snacking are next things to work on to achieve better glycemic control. History and CGM data suggested room of improvement if she isable to take short acting insulin before meal, so insulin will match with meal (patient was hyperglycemia after meal for about 2-3 hours before glucose normalized). On the day that she snacked all day with no insulin to cover snack, she had hyperglycemia almost all day. -- take novolog before meal -- patient would like to change high carb/sugar snacks to less carb/sugar with high fiber snacks eg.Vegetables, carrots, fruits -- start Trulicity 0.75 mg weekly to help with craving, glycemic control and weight loss. No FH/ personal history of medullary thyroid cancer/ pancreatitis -- Cont Tresiba 40 unit(s) daily and Novolog 16 unit(s) TID with meal and correction 04/24 over 150 -- patient is now interested in G6 CGM, will have her continue to work with our CDE (Stephany Roca) -- Personal Samantha CGM pending G6 approval Lipid: LDL 91 02/2018 Retinopathy: follows with ophthalmology 05/2018 Neuropathy: normal monofilament test 05/2018 Nephropathy: no microalbuminuria 02/2018 Other autoimmune disease: TSH WNL 02/2018, Celiac screening next blood draw ## Obesity Patient would like to lose weight. Tried diet herself but did not success. Cannot engage in exercise. Patient is interested in medical weight management. -- weight management clinic referral last visit, pending scheduling -- Trulicity 0.75 mg weekly as above Patient Instructions It was a pleasure seeing you in clinic today. -- No change in insulin regimen (Tresiba 40 unit(s) daily and Novolog 16 unit(s) with meals) -- take Novolog before you eat -- Samantha CGM -- start Trulicity to help with craving and weight loss -- please let us know if you have low sugar (<70) or persistent AM glucose < 100 If you have any questions or concerns, our clinic phone number is [phone]. For urgent questions please contact Endocrinology on-call [phone]. Jeremy Abraham MD Endocrine Fellow Orders Placed This Encounter Procedures ??? SUPERVISOR AREA REFERRAL ??? Hemoglobin A1c POCT RTC 1 month ?? Patient seen and examined with staff survey field technician Dr. Cavanaugh. ?? Jeremy Abraham MD Diabetes, Metabolism and Endocrinology Fellow Pager: [phone] I have seen and examined the patient and agree with the fellow's plan of care as noted. June 18, 2018 Dr. Ibeth Cavanaugh [phone] Answers for HPI/ROS submitted by the patient on 06/18/2018 General Symptoms: No Skin Symptoms: No HENT Symptoms: No EYE SYMPTOMS: No HEART SYMPTOMS: No LUNG SYMPTOMS: No INTESTINAL SYMPTOMS: No URINARY SYMPTOMS: No GYNECOLOGIC SYMPTOMS: No BREAST SYMPTOMS: No SKELETAL SYMPTOMS: No BLOOD SYMPTOMS: No NERVOUS SYSTEM SYMPTOMS: No MENTAL HEALTH SYMPTOMS: No documented in this encounter Plan of Treatment Upcoming Encounters Date Type Specialty Care Team Description 04/04/2022 Office Visit director security risk management Kaela Dubois APRN [facility] [address] [place] [address] (Wo rk) 04/23/2022 Virtual Visit Endocrinology Lottie Cedillo PA-C [address] [place] [phone] (Wo rk) Scheduled Referrals Name Type Priority Associated Diagnoses Order S chedule SUPERVISOR AREA Referral Routine Type 1 diabetes mellitu s Ordered: 06/18/2018 REFERRAL with complications (H) documented as of this encounter Procedures Procedure Name Priority Date/Time Associated Diagnosis Comme nts HEMOGLOBIN A1C POCT Routine 06/18/2018 Type 1 diabetes melli tus Results for this with complications (H) proce dure are in the results section . documented in this encounter Results (ABNORMAL) Hemoglobin A1c POCT (06/18/2018) Analysis Performed At Patho logist Time Signature Hemoglobin A1C 11.4 (A) 4.3 - 6 % POCT Specimen (Source) Anatomical Location Collection Method / Collectio n Time Received Time / Laterality Volume Whole blood 06/18/2018 specimen (specimen) Jeremy Abraham MD LAB - ENTER/EDIT POCT documented in this encounter Visit Diagnoses Diagnosis Type 1 diabetes mellitus with complicati ons (H) - Primary documented in this encounter Additional Health Concerns Assessment Noted Time PHQ-9 Depression Total Score: 3 02/26/2018 4:39 PM AUTOMOTIVE HARDWARE ENGINEER documented as of this encounter Care Teams Commercial Construction Estimator Relationship Specialty Start Date End Date Nelda Peña, FIELD OPERATIONS SUPERVISOR SEISMOGRAPH OPERATOR PCP - General Nurse Practitioner 02/02/[address] [place] [address] [address] [place] [address] Jose Lopez OD MD Optometry 03/04/18 documented as of this encounter
--- OUTSIDE RECORDS SUMMARY | 2022-02-19 14:30 | XMS_ITS | Encounter Summary ---
:1980 Author Organization [place] Address [address] [place] [address] Care Team Providers Name Role Phone Nelda Peña APRN EQUIPMENT INSTALLATION PROFESSIONAL Primary Care Provider [phone] Jose Lopez OD Unavailable Encounter Details Date Type Department Care Team Description 05/02/2018 Travel Social History Tobacco Use Types Packs/Day [...] at Date Recorded Female 05/08/2020 12:57 PM SPEEDOMETER MECHANIC documented as of this encounter Plan of Treatment Upcoming Encounters Date Type Specialty Care Team Description 04/04/2022 Office Visit track car operator Kaela Dubois APRN EQUIPMENT INSTALLATION PROFESSIONAL [facility] [address] [place], [place] [address] (Wo rk) 04/23/2022 Virtual Visit Endocrinology Lottie Cedillo PA-C [address] [place], [place] [phone] (Wo rk) documented as of this encounter Visit Diagnoses Not on filedocumented in this encounter Additional Health Concerns Assessment Noted Time PHQ-9 Depression Total Score: 3 02/26/2018 4:39 PM SPEEDOMETER MECHANIC documented as of this encounter Care Teams Disability Services Coordinator Relationship Specialty Start Date End Date Nelda Peña APRN EQUIPMENT INSTALLATION PROFESSIONAL PCP - General Nurse Practitioner 02/02/18 420 [facility] [address] [place], [place] [address] Jose Lopez OD MD Optometry 03/04/18 documented as of this encounter
--- OUTSIDE RECORDS SUMMARY | 2022-02-19 14:30 | XMS_ITS | Encounter Summary ---
:1980 Author Organization [place] Address [address] [facility] [place] [address] Care Team Providers Name Role Phone Casey Nelda Roy CORPORATE ACCOUNTANT SENIOR BIOSTATISTICIAN/GROUP LEADER Primary Care Provider Jose Lopez OD Unavailable Reason for Visit Reason Onset Date Comments Refill Request 05/21/2018 Encounter Details Date Type Department Care Team Description 05/21/2018 MyC [facility] Tammy Dubois Refill Request Clinic [facility]ante SENIOR BIOSTATISTICIAN/GROUP LEADER [address] [facility] Professional SPECIALIS Bldg [facility] [address] [place] [address] [place], [place] [address] [phone] Social History Tobacco Use Types Packs/Day Years [...] at Date Recorded Female 05/08/2020 12:57 PM ASSISTANT PROFESSOR OF GEOGRAPHY documented as of this encounter Miscellaneous Notes Telephone Encounter - Keily Sy RN - 05/22/2018 3:01 PM CST Patient requesting refill of celexa. Last prescribed by Sherly during IUD consult. Patient was to follow up with psychiatry but it does not seem that appointment occurred. Spoke with Jillian Dubois in clinic. She agrees to temporary refill but patient either needs to see psych or if she is stable on the current dose, needs to come see Jillian for an annual appointment. Nurse relayed this message in [employer]. Sent temporary refill. STANT PROFESSOR OF GEOGRAPHY documented in this encounter Plan of Treatment Upcoming Encounters Date Type Specialty Care Team Description 04/04/2022 Office Visit rail splitter Kaela Dubois APRN CNP [facility] [address] [place], [place] [address] (Wo rk) 04/23/2022 Virtual Visit Endocrinology Lottie Cedillo PA-C [address] [place], [place] [address] (Wo rk) documented as of this encounter Visit Diagnoses Diagnosis 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, unspecified depression episode severity (H) documented in this encounter Additional Health Concerns Assessment Noted Time PHQ-9 Depression Total Score: 3 02/26/2018 4:39 PM ASSISTANT PROFESSOR OF GEOGRAPHY documented as of this encounter Care Teams Computer Operator Relationship Specialty Start Date End Date Overkamp, Nelda M, CORPORATE ACCOUNTANT SENIOR BIOSTATISTICIAN/GROUP LEADER PCP - General Nurse Practitioner 02/02/18 420 [facility] [address] [place] [address] Jose Lopez OD MD Optometry 03/04/18 documented as of this encounter
--- OUTSIDE RECORDS SUMMARY | 2022-02-19 14:30 | XMS_ITS | Encounter Summary ---
:1980 Author Organization [place] Address [facility] [place] [address] Care Team Providers Name Role Phone Nelda Peña MEDICAL AUDITOR [facility] Primary Care Provider [phone] Jose Lopez OD Unavailable Reason for Visit Reason Onset Date Comments Appointment 05/04/2018 Encounter Details Date Type Department Care Team Description 05/04/2018 Telephone [facility] gy Jose Lopez, OD Appointment [address] [facility] [address] [facility] 4th Floor 4th [place], [place] [address] [place], [place] [phone] (Wo rk) Social History Tobacco Use Types [...] at Date Recorded Female 05/08/2020 12:57 PM UNIFIED COMMUNICATIONS ENGINEER documented as of this encounter Plan of Treatment Upcoming Encounters Date Type Specialty Care Team Description 04/04/2022 Office Visit kiln tender Kaela Dubois APRN NICKEL OPERATOR [facility] [address] [place], [place] [address] (Wo rk) 04/23/2022 Virtual Visit Endocrinology Lottie Cedillo , [facility] [address] [place] [address] [phone] (Wo rk) documented as of this encounter Visit Diagnoses Not on filedocumented in this encounter Additional Health Concerns Assessment Noted Time PHQ-9 Depression Total Score: 3 02/26/2018 4:39 PM UNIFIED COMMUNICATIONS ENGINEER documented as of this encounter Care Teams Coagulating Bath Operator Relationship Specialty Start Date End Date Nelda Peña APRN NICKEL OPERATOR PCP - General Nurse Practitioner 02/02/18 420 [facility] [address] [place] [address] Jose Lopez OD MD Optometry 03/04/18 documented as of this encounter
--- OUTSIDE RECORDS SUMMARY | 2022-02-19 14:30 | XMS_ITS | Encounter Summary ---
:1980 Author Organization [place] Address [address] [place] [address] Care Team Providers Name Role Phone Nelda Peña APRN SHUTTLE SPOTTER Primary Care Provider [phone] Jose Lopez OD Unavailable Encounter Details Date Type Department Care Team Description 03/21/2018 Travel Social History Tobacco Use Types Packs/Day [...] Female 05/08/2020 12:57 PM CONTROL CLERK AUDITING documented as of this encounter Plan of Treatment Upcoming Encounters Date Type Specialty Care Team Description 04/04/2022 Office Visit processing manager Kaela Dubois APRN SHUTTLE SPOTTER [facility] [address] [place], [place] [address] (Wo rk) 04/23/2022 Virtual Visit Endocrinology Lottie Cedillo PA-C [address] [place], [place] [phone] (Wo rk) documented as of this encounter Visit Diagnoses Not on filedocumented in this encounter Additional Health Concerns Assessment Noted Time PHQ-9 Depression Total Score: 3 02/26/2018 4:39 PM CONTROL CLERK AUDITING documented as of this encounter Care Teams Grounds Crew Supervisor Relationship Specialty Start Date End Date Nelda Peña APRN SHUTTLE SPOTTER PCP - General Nurse Practitioner 02/02/18 420 [facility] [address] [place], [place] [address] Jose Lopez OD MD Optometry 03/04/18 documented as of this encounter
--- OUTSIDE RECORDS SUMMARY | 2022-02-19 14:30 | XMS_ITS | Encounter Summary ---
:1980 Author Organization [place] Address [facility] [place] [address] Care Team Providers Name Role Phone Nelda Peña WHITE KID BUFFER [facility] Primary Care Provider Jose Lopez OD Unavailable Reason for Visit Reason Onset Date Comments Appointment 05/06/2018 Encounter Details Date Type Department Care Team Description 05/06/2018 Telephone [facility] gy Jose Lopez, OD Appointment [address] [facility] [address] [facility] 4th Floor 4th [place], [place] [address] [place], [place] [phone] (Wo rk) Social History Tobacco Use [...] at Date Recorded Female 05/08/2020 12:57 PM CIRCUS ARTIST documented as of this encounter Plan of Treatment Upcoming Encounters Date Type Specialty Care Team Description 04/04/2022 Office Visit automatic seamer Kaela Dubois APRN WOOD CALKER [facility] [address] [place], [place] [address] (Wo rk) 04/23/2022 Virtual Visit Endocrinology Lottie Cedillo , LUIS CARLOSC [address] [place] [phone] (Wo rk) documented as of this encounter Visit Diagnoses Not on filedocumented in this encounter Additional Health Concerns Assessment Noted Time PHQ-9 Depression Total Score: 3 02/26/2018 4:39 PM CIRCUS ARTIST documented as of this encounter Care Teams Pest Controller Relationship Specialty Start Date End Date Nelda Peña APRN WOOD CALKER PCP - General Nurse Practitioner 02/02/18 420 [facility] [address] [place] [address] Jose Lopez OD MD Optometry 03/04/18 documented as of this encounter
--- OUTSIDE RECORDS SUMMARY | 2022-02-19 14:30 | XMS_ITS | Encounter Summary ---
:1980 Author Organization [place] Address [address] [facility] [place] [address] Care Team Providers Name Role Phone Nelda Peña APRN, CNP Primary Care Provider Reason for Visit Reason Comments Follow Up consult about control [facility] - Closed Specialty Diagnoses / Procedures Referred By Contact Refer red To Contact Diagnoses Screening for diabetic retinopathy Nelda Peña APRN CNP [address] [facility] [address] [place], [place] [address] Referral ID Status Reason Start Date Expiration Date Visits Requ ested Visits Authorized [id number] Closed 02/17/2018 02/17/2019 1 1 Encounter Details Date Type Department Care Team Description 02/26/2018 Office Visit [facility], Encounter for other general counseling or advice on contraception (Primary Dx); [facility] Jillian Infante, Screening for diabetic retinopathy; [place] SHAW DIAZ Adenomyosis; [address] [facility] PMDD (premenstrual dysphoric disorder) [facility] Professional Bldg [facility] [address] [place], [place] [address] [address] [place], [place] [phone] (Work) [phone] Social History Tobacco Use Types Packs/Day Years [...] Date Recorded Female 05/08/2020 12:57 PM LOG HOOKER documented as of this encounter Last Filed Vital Signs Vital Sign Reading Time Taken Comments Blood Pressure 121/80 02/26/2018 2:44 PM LOG HOOKER Pulse 118 02/26/2018 2:44 PM LOG HOOKER Temperature - - Respiratory Rate - - Oxygen Saturation - - Inhaled Oxygen Concentration - - Weight 106.1 kg (233 lb 12.8 oz) 02/26/2018 2:44 PM LOG HOOKER Height 157.5 cm (5' 2) 02/26/2018 2:44 PM LOG HOOKER Body Mass Index 42.76 02/26/2018 2:44 PM LOG HOOKER documented in this encounter Progress Notes Jillian Dubois APRN TELECOM SALES CONSULTANT - 02/26/2018 2:30 PM CST Progress Note SUBJECTIVE: Tamiko Méndez is an 37 year old female who is here for a control consult. Tamiko's medical history is significant for Type 1 diabetes (diagnosed in 1981), adenomyosis, and depression. Tamiko was started on depo provera injections in November for management of adenomyosis.Tamiko feels her depression symptoms significantly worsened since receiving the depo injection (next injection would be due March 11), although in the last 2 weeks, they seem to be improving. She had some suicidal ideation without a plan and presented to the ER because her mother was concerned about her vocalizing she was feeling worthless. Tamiko continues to take Celexa daily. She has other str essors and factors in her life currently that could be playing a role including starting a new job and financial stressors. Patient reports heavy menses with large clots accompanied by dysmenorrhea related to her adenomyosis. She had a Mirena IUD in the past and it fell out after 1 month during one of her menses. One of theways she michael with the pain of her dysmenorrhea is by bearing down and she noted that it fell out while doing this. She has also tried two types of COCs in the past, which worked to control her bleeding, but the Ortho tri cyclen caused her to have manic symptoms. COCs are contraindicated, however, given her long standing hx of diabetes. Patient also reports that she has PMDD, with occasional suicidal thoughts around the time of her menses. She has been on the same dose of Celexa, 40mg daily. Tamiko does not desire future and hopes to have a hysterectomy in the future when she is more financially stable and is able to take the time off of work that will be needed for recovery. Tamiko's main goal is prevention, followed by a method that won't cause her to have worsening depression, one that will control her PMDD, and one that will decrease her bleeding and dysmenorrhea. She is sexually active, happy in her relationship. HISTORY: Prescription Medications as of 02/27/2018 cetirizine (ZYRTEC) 10 MG tablet Take 10 mg by mouth daily citalopram (CELEXA) 40 MG tablet Take 40 mg by mouth daily CLARITIN 10 MG OR TABS 1 tab daily insulin NPH (HUMULIN N/NOVOLIN N) 100 UNIT/ML injection Inject 100 Units Subcutaneous 2 times daily insulin regular (HUMULIN R/NOVOLIN R) 100 UNIT/ML injection Inject 100 mLs Subcutaneous Takes 3-4 times a day with food.Clari Zavala LPN 2:16 PM on 02/17/2018 LORazepam (ATIVAN) 0.5 MG tablet Take 0.5 mg by mouth 2 times daily as needed medroxyPROGESTERone Acetate (DEPO-SUBQ PROVERA) 104 MG/0.65ML injection Inject 104 mg Subcutaneous Takes 4 times a year.Clari Zavala LPN 2:17 PM on 02/17/2018 Allergies Allergen Reactions ? ? Hay Fever & [A.R.M.] Stuffiness, watery eyes Immunization History Administered Date(s) Administered ??? Influenza Vaccine IM 3yrs+ 4 Valent IIV4 02/17/2018 ??? Pneumococcal 23 valent 02/17/2018 Obstetric History No data available Past Medical History: Diagnosis Date ??? Acne [...] Seasonal/Environmental Allergies Mother ??? Hypertension Father ??? Obesity Sister ??? Osteoporosis Maternal Grandmother ??? Back Pain Maternal Grandmother ??? KIDNEY DISEASE Maternal Grandfather ??? Type 2 Diabetes Maternal Grandfather ??? Type 2 Diabetes Paternal Grandmother Social History Social History ??? Marital status: Single Spouse name: N/A ??? Number of children: N/A ??? Years of education: N/A Social History Main Topics ??? Smoking status: Never Smoker ??? Smokeless tobacco: Never Used ??? Alcohol use Yes ??? Drug use: Not on file ??? Sexual activity: Yes control/ protection: Condom Other Topics Concern ??? Not on file Social History Narrative Works FT Lives in the [facility]. ROS EXAM: Blood pressure 121/80, pulse 118, height 1.575 m (5' 2), weight 106.1 kg (233 lb 12.8 oz), not currently . Body mass index is 42.76 kg/(m^2). General - pleasant female in no acute distress. Psych: normal mentation, normal orientation; well groomed Neurological - normal strength, sensation, and mental status. ASSESSMENT: Encounter Diagnoses Name Primary? Screening for diabetic retinopathy ??? Encounter for other general counseling or advice on contraception Yes ??? Adenomyosis ??? PMDD (premenstrual dysphoric disorder) PLAN: Counseled Tamiko on contraceptive methods, reviewing the common side effects, adverse effects, method of use, common bleeding patterns, efficacy in prevention, risks, and benefits of each method. Patient is not a candidate for estrogen therapy. Reviewed that worsening depression is a side effect of the depo provera injection and that this side effect would likely be experienced again aftershe receives another injection. Nexplanon, although it would be a good option to prevent ovulation from a PMDD stand point, also has the same side effect and has been advised to be used with caution insomeone with a hx of depression. The nexplanon does contain a different type of progesterone than dep o provera. Progesterone only pills and progesterone-based IUDs would all be safe options. The MirenaIUD is FDA approved for management of heavy menstrual bleeding; however, all progesterone-based IUDswould be expected to decrease her menstrual bleeding. In clinical trials, depression/ depressive mood occurred in 6.4% of patients with Mirena IUD, 4.4% of Kyleena IUD users, and 3.8% of participants with the Shireen IUD. Progesterone only control pills are less effective in prevention than the IUDs or Nexplanon. If dysmenorrhea and menorrhagia persist with the option that she chooses, may initiate POPs to take additionally. Would also encourage patient to consider switching SSRIs as she is at the maximum dose for Celexa. This patient may also benefit from psychiatry referral or psychotherapy. Briefly reviewed surgical options for adenomyosis; patient is strongly interested in this and will schedule a surgical consult when she is prepared to have surgery. States she would like to save up vacation to be able to have paid recovery time and save money to be able to afford the procedure. She does not have plans for future pregnancies. Tamiko will consider her options and schedule a follow-up appointment for the LARC placement that she desires and further discussion of PMDD management. Tamiko expressed awareness that her Depo provera injection will no longer be effective as of March 11, and she would need to use an alternative method of control if she does not return to clinic prior to that time for LARC placement. Tamiko expressed understanding and agreement with the plan for care. I, Mohsen Cadena, completed the PFSH and ROS. I then acted as a scribe for LEMUEL Rosas, for the remainder of the visit. Mohsen Cadena, NINGN, RN Doctorate of Nursing Practice [facility] Specialty I agree with the PFSH and ROS as completed by the LEMUEL Student, except for changes made by me. The remainder of the encounter was performed by me and scribed by the LEMUEL Student. The scribed note accurately reflects my personal services and decisions made by me. Jillian Dubois DNP, LEMUEL SQUIRES HOOKER documented in this encounter Nursing Notes Chelsea Fatima CMA - 02/26/2018 2:30 PM CST Chief Complaint Patient presents with ??? Follow Up For consult about control HOOKER documented in this encounter Plan of Treatment Upcoming Encounters Date Type Specialty Care Team Description 04/04/2022 Office Visit contract administration manager Kaela Dubois APRN CNP [facility] [address] [place], [place] [address] (Wo rk) 04/23/2022 Virtual Visit Endocrinology Lottie Cedillo PA-C [address] [place] [phone] (Wo rk) Scheduled Referrals Name Type Priority Associated Diagnoses Order S chedule [facility] REFERRAL Referral Routine Screening for diabetic Or dered: 02/17/2018 retinopathy documented as of this encounter Visit Diagnoses Diagnosis Encounter for other general counseling o r advice on contraception - Primary Adenomyosis Endometriosis of uterus PMDD (premenstrual dysphoric disorder) Premenstrual tension syndromes documented in this encounter Additional Health Concerns Assessment Noted Time PHQ-9 Depression Total Score: 3 02/26/2018 4:39 PM LOG HOOKER documented as of this encounter Care Teams Net Development Manager Relationship Specialty Start Date End Date Overkamp, Nelda M, GENERAL CAR SUPERVISOR YARD TELECOM SALES CONSULTANT PCP - General Nurse Practitioner 02/02/[address] [place] [address] [address] [place] [address] documented as of this encounter
--- OUTSIDE RECORDS SUMMARY | 2022-02-19 14:30 | XMS_ITS | Encounter Summary ---
:1980 Author Organization [place] Address [address] [place] [address] Care Team Providers Name Role Phone Nelda Peña Kirill SQUIRES SPEECH COMMUNICATION PROFESSOR Primary Care Provider Jose Lopez OD Unavailable Reason for Visit Reason Comments IUD IUD Refill Request citalopram 40 mg Encounter Details Date Type Department Care Team Description 03/12/2018 Office Visit [facility], Encounter for IUD insertion (Primary Dx); [facility], Encounter for insertion of intrauterine contraceptive device; [facility] Screen for STD (sexually transmitted dis ease); [address] [facility] Episode of recurrent major d epressive disorder, unspecified depression episode severity (H) [facility] Professional Bldg [facility] [address] [place], [place] [address] [address] [place], [place] [phone] (Work) [phone] Social History Tobacco Use Types Packs/Day Years [...] at Date Recorded Female 05/08/2020 12:57 PM HELP DESK SUPPORT documented as of this encounter Last Filed Vital Signs Vital Sign Reading Time Taken Comments Blood Pressure 120/82 03/12/2018 11:36 AM HELP DESK SUPPORT Pulse 99 03/12/2018 11:36 AM HELP DESK SUPPORT Temperature - - Respiratory Rate - - Oxygen Saturation - - Inhaled Oxygen Concentration - - Weight 106.1 kg (233 lb 14.4 oz) 03/12/2018 11:36 AM HELP DESK SUPPORT Height 157.5 cm (5' 2) 03/12/2018 11:36 AM HELP DESK SUPPORT Body Mass Index 42.78 03/12/2018 11:36 AM HELP DESK SUPPORT documented in this encounter Patient Instructions Patient InstructionsMarissa Hodge - 03/12/2018 11:30 AM CST IUD information: Benefits: The IUD can be 97-99% effective when carefully following directions regarding use. It can be more effective if used with additional contraception. IUD containing progestin may decrease menstrual flow and menstrual cramping. Risks/Side Effects: include but are not limited to spotting, bleeding, hemorrhage, or anemia: cramping or pain: partial or complete expulsion of device; lost IUD strings; uterine or cervical perforation; embedding of IUD in the uterine wall; increased risk of pelvic inflammatory disease. Women who beco me with an IUD in place are at a higher risk for ectopic should a occurwith an IUD in situ. There is a higher rate of miscarriage when occurs with IUD in place. Warning signs: Please call clinic if you have abnormal spotting or heavy bleeding, abdominal pain, dyspareunia, fever, chills, flu like symptoms, or unable to locate strings of IUD, or strings are longer or shorter than expected. Your Depo shot yesterday. Therefore, you must use back up contraception for 7 days with yourIUD. You may use pain medications (ibuprofen) as needed for mild to moderate pain. Please follow-up in clinic in 4-6 weeks for IUD string check. Referral for psychiatry will be placed. They will call you to set up an appointment. DESK SUPPORT documented in this encounter Progress Notes Jillian Dubois, SHAW SPEECH COMMUNICATION PROFESSOR - 03/12/2018 11:30 AM CST IUD Insertion: CONSULT: Is a test required: Yes. Was it positive or negative? Negative Was a consent obtained? Yes Subjective: Tamiko Méndez is a 37 year old female, , who presents for Mirena IUD insertion. Tamiko had a consult on 02/26/2018 to discuss contraceptive methods. She has a hx of adenomyosis, depression, and PMDD, with recent worsening of depression symptoms after depo provera injection, whichled to suicidal ideation. Her medical history is also significant for Type 1 diabetes (diagnosed in 1981). Patient has been given the opportunity to ask questions about all forms of control, including all options appropriate for Tamiko Méndez. Discussed that no method of control, except abstinence is 100% effective against or sexually transmitted infection. Tamiko Méndez understands she may have the IUD removed at any time. IUD should be removed by a health care provider. The entire insertion procedure was reviewed with the patient, including care after placement. No LMP recorded. Patient is not currently having periods (Reason: Control). Patient was on Depo Provera. She was due for her Depo shot yesterday 03/11/18 and did not receive it, as she is here to switch methods today. No allergy to betadine or shellfish. Patient desires STD screening HCG Qual Urine Date Value Ref Range Status 03/12/2018 Negative neg Final BP 120/82 (BP Location: Right arm, Patient Position: Sitting, Cuff Size: Adult Large) Pulse 99 Ht 1.575 m (5' 2) Wt 106.1 kg (233 lb 14.4 oz) BMI 42.78 kg/m?? Pelvic Exam: EG/BUS: normal genital architecture without lesions, erythema or abnormal secretions. Vagina: moist, pink, rugae with physiologic discharge and secretions Cervix: no lesions, pink, moist, closed, without lesion or CMT Uterus: anteverted position, mobile, no pain Adnexa: within normal limits and no masses, nodularity, tenderness PROCEDURE NOTE: -- IUD Insertion Reason for Insertion: contraception, dysmenorrhea related to adenomyosis Under sterile technique, cervix was visualized with graves speculum and prepped with Betadine solution swab x 3. Tenaculum was placed for stability. The uterus was gently straightened and sounded to 8.0 cm. IUD prepared for placement, and IUD inserted according to hosting engineer's instructions without difficulty or significant resitance, and deployed at the fundus. The strings were visualized and trimmed to 3cm from the external os. Tenaculum was removed and hemostasis noted. Speculum removed. Patienttolerated procedure well. Lot #: [id number] Exp: July 2020 EBL: minimal Complications: none ASSESSMENT: Tamiko was seen today for iud and refill request. Diagnoses and all orders for this visit: Encounter for IUD insertion - hCG qual urine POCT; Standing - hCG qual urine POCT - HC LEVONORGESTREL IU 52MG 5 YR - levonorgestrel (MIRENA) 20 MCG/24HR IUD; 1 each (20 mcg) by Intrauterine route continuous - INSERTION INTRAUTERINE DEVICE - hCG qual urine POCT Encounter for insertion of intrauterine contraceptive device - HC LEVONORGESTREL IU 52MG 5 YR - levonorgestrel (MIRENA) 20 MCG/24HR IUD; 1 each (20 mcg) by Intrauterine route continuous - INSERTION INTRAUTERINE DEVICE - hCG qual urine POCT Screen for STD (sexually transmitted disease) - Chlamydia PCR (Clinic Collect) - Gonorrhea PCR Other orders - citalopram (CELEXA) 40 MG tablet; Take 1 tablet (40 mg) by mouth daily PLAN: Given hosting engineer's handouts, including when to have IUD removed, list of danger s/sx, side effectsand follow up recommended. Encouraged condom use for prevention of STD. Back up contraception advised for 7 days. Advised to call for any fever, for prolonged or severe pain or bleeding, abnormal vaginal discharge, worsening of mental health, or if unable to palpate strings. If suicidal ideation, pt was instructed to seek care immediately at ER. She was advised to use pain medications (ibuprofen) as needed for mild to moderate pain. STD testing completed today. Return to clinic in 4-6 weeks for IUD string check. Tamiko requested referral to psychiatry today for management of mental health. Referral placed. Sheis currently taking 40mg Celexa daily and has 3 doses left. Refill provided on Celexa until she can be seen for care by mental health provider. Encouraged psychotherapy along with medication therapy. Tamiko left, stable. She expressed understanding and agreement with the plan for care. I, Marissa Hodge, completed the PFSH and ROS. I then acted as a scribe for LEMUEL Rosas, for the remainder of the visit. Marissa Hodge RN, LEMUEL DNP Student. I agree with the PFSH and ROS as completed by the LEMUEL Student, except for changes made by me. The remainder of the encounter was performed by me and scribed by the LEMUEL Student. The scribed note accurately reflects my personal services and decisions made by me. Jillian Dubois DNP, SHAW, LEMUEL DESK SUPPORT documented in this encounter Nursing Notes Kathya Luke CMA - 03/12/2018 11:30 AM CST Chief Complaint Patient presents with ??? IUD IUD ??? Refill Request citalopram 40 mg Health Maintenance Due Topic Date Due ??? FOOT EXAM Q1 YEAR 1981 ??? EYE EXAM Q1 YEAR 1981 ??? TSH W/ FREE T4 REFLEX Q2 YEAR 1981 ??? LIPID MONITORING Q1 YEAR 1981 ??? MICROALBUMIN Q1 YEAR 1981 ??? DTAP/TDAP/TD IMMUNIZATION (1 - Tdap) 12/25/1987 ??? DEPRESSION ACTION PLAN 1998 ??? A1C Q6 MO 02/28/2007 ??? CREATININE Q1 YEAR 08/30/2007 Kathya Luke CMA on 03/12/2018 at 11:36 AM DESK SUPPORT documented in this encounter Plan of Treatment Upcoming Encounters Date Type Specialty Care Team Description 04/04/2022 Office Visit vacuum tank tender Kaela Dubois APRN [facility] [address] [place] [address] (Wo rk) 04/23/2022 Virtual Visit Endocrinology Lottie Cedillo PA-C [address] [place] [address] (Wo rk) documented as of this encounter Procedures Procedure Name Priority Date/Time Associated Diagnosis Comme nts HC INSERTION Routine 03/12/2018 1:14 Encounter for IUD INTRAUTERINE DEVICE PM HELP DESK SUPPORT insertion Encounter for insertion of intrauterine contraceptive device NEISSERIA GONORRHOEAE Routine 03/12/2018 11:45 Screen for STD Results for this PCR AM HELP DESK SUPPORT (sexually transmitted proced ure are in disease) the results section. CHLAMYDIA TRACHOMATIS Routine 03/12/2018 11:45 Screen for STD Results for this PCR AM HELP DESK SUPPORT (sexually transmitted proced ure are in disease) the results section. HCG QUALITATIVE URINE Routine 03/12/2018 Encounter for IUD R esults for this POCT insertion procedure are i n the results section. documented in this encounter Results Gonorrhea PCR (03/12/2018 11:45 AM HELP DESK SUPPORT) Analysis Performed At Patho logist Time Signature Specimen Cervix 03/12/2018 [facility] 7:10 PM HELP DESK SUPPORT [facility] N Gonorrhea Negative NEG^Negati 03/13/2018 [facility] ve 12:13 PM HELP DESK SUPPORT [facility] Comment: Negative for N. gonorrhoeae rRNA by robles scription mediated amplification. A negative result by supervisor liquefaction media eal amplification does not preclude the presence of N. gonorrhoeae infection because results are dependent on proper and adequate collection, absence of inhibitors, and sufficient rRNA to be detected. Specimen Anatomical Collection Method Collection Time Receive d Time (Source) Location / / Volume Laterality Cervical swab 03/12/2018 11:45 03/12/2018 7:09 (specimen) AM HELP DESK SUPPORT PM HELP DESK SUPPORT Jillian Dubois APRN SPEECH COMMUNICATION PROFESSOR LAB - MICRO GENERAL O RDERABLES Performing Organization Address City/[facility] [place] Phon e Number [facility] [address] Chlamydia PCR (Clinic Collect) (03/12/2018 11:45 AM HELP DESK SUPPORT) Patholo gist Method Time Signature Specimen Cervix 03/12/2018 [facility] Description 7:10 PM HELP DESK SUPPORT [facility] Chlamydia Negative NEG^Negat 03/13/2018 [facility] nirali 12:13 PM HELP DESK SUPPORT [facility] Comment: Negative for C. trachomatis rRNA by robles scription mediated amplification. A negative result by supervisor liquefaction media ela amplification does not preclude the presence of C. trachomatis infection because results are dependent on proper and adequate collection, absence of inhibitors, and sufficient rRNA to be detected. Specimen Anatomical Collection Method Collection Time Receive d Time (Source) Location / / Volume Laterality Cervical swab 03/12/2018 11:45 03/12/2018 7:09 (specimen) AM HELP DESK SUPPORT PM HELP DESK SUPPORT Jillian Dubois APRN SPEECH COMMUNICATION PROFESSOR LAB - MICRO GENERAL O RDERABLES Performing Organization Address City/[facility] Phon e Number [address] hCG qual urine POCT (03/12/2018) P athologist Signature HCG Qual Urine Negative neg Internal QC OK Yes Specimen (Source) Anatomical Location Collection Method / Collectio n Time Received Time / Laterality Volume Urine specimen 03/12/2018 (specimen) Jillian Dubois APRN SPEECH COMMUNICATION PROFESSOR LAB - ENTER/EDIT POCT documented in this encounter Visit Diagnoses Diagnosis Encounter for IUD insertion - Primary Encounter for insertion of intrauterine contraceptive device Encounter for insertion of intrauterine contraceptive device Screen for STD (sexually transmitted dis ease) Screening examination for venereal disea se 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, unspecified depression episode severity (H) documented in this encounter Additional Health Concerns Assessment Noted Time PHQ-9 Depression Total Score: 3 02/26/2018 4:39 PM HELP DESK SUPPORT documented as of this encounter Care Teams Electric Well Logging Operator Relationship Specialty Start Date End Date Nelda Peña APRN SPEECH COMMUNICATION PROFESSOR PCP - General Nurse Practitioner 02/02/18 [address] [facility] [address] [place] [address] Jose Lopez OD MD Optometry 03/04/18 documented as of this encounter
--- OUTSIDE RECORDS SUMMARY | 2022-02-19 14:30 | XMS_ITS | Encounter Summary ---
:1980 Author Organization [place] Address [facility] [place] [address] Care Team Providers Name Role Phone Nelda Peña APRN RISK MANAGER Primary Care Provider [phone] Jose Lopez OD Unavailable Encounter Details Date Type Department Care Team Description 05/15/2018 Orders Only [facility] Endocrinolo Jeremy Hernandez, Type 1 diabetes mellitus [facility] [facility] with complications (H) 3rd Floor [facility] (Primary Dx) [facility] [phone] [address] [facility] [phone] [place] [address] Social History Tobacco Use Types [...] at Date Recorded Female 05/08/2020 12:57 PM UNDERWATER HUNTER TRAPPER documented as of this encounter Plan of Treatment Upcoming Encounters Date Type Specialty Care Team Description 04/04/2022 Office Visit flakeboard line tender Kaela Dubois APRN RISK MANAGER [facility] [address] [place], [place] [address] (Wo rk) 04/23/2022 Virtual Visit Endocrinology Lottie Cedillo PA-C [address] [place] [phone] (Wo rk) documented as of this encounter Visit Diagnoses Diagnosis Type 1 diabetes mellitus with complicati ons (H) - Primary documented in this encounter Additional Health Concerns Assessment Noted Time PHQ-9 Depression Total Score: 3 02/26/2018 4:39 PM UNDERWATER HUNTER TRAPPER documented as of this encounter Care Teams Radio Operator Relationship Specialty Start Date End Date Nelda Peña APRN RISK MANAGER PCP - General Nurse Practitioner 02/02/[address] [place] [address] [address] [place], [place] [phone] Jose Lopez OD MD Optometry 03/04/18 documented as of this encounter
--- OUTSIDE RECORDS SUMMARY | 2022-02-19 14:30 | XMS_ITS | Encounter Summary ---
:1980 Author Organization [place] Address [address] [place] [address] Care Team Providers Name Role Phone Nelda Peña APRN COUNSELING CENTER DIRECTOR Primary Care Provider [phone] Jose Lopez OD Unavailable Encounter Details Date Type Department Care Team Description 05/29/2018 Travel Social History Tobacco Use Types Packs/Day [...] at Date Recorded Female 05/08/2020 12:57 PM SAND TEMPERER documented as of this encounter Plan of Treatment Upcoming Encounters Date Type Specialty Care Team Description 04/04/2022 Office Visit home stereo equipment installer Kaela Dubois APRN COUNSELING CENTER DIRECTOR [facility] [address] [place], [place] [phone] (Wo rk) 04/23/2022 Virtual Visit Endocrinology Lottie Cedillo PA-C [address] [place], [place] [phone] (Wo rk) documented as of this encounter Visit Diagnoses Not on filedocumented in this encounter Additional Health Concerns Assessment Noted Time PHQ-9 Depression Total Score: 3 02/26/2018 4:39 PM SAND TEMPERER documented as of this encounter Care Teams Inspector Assembly Relationship Specialty Start Date End Date Nelda Peña APRN COUNSELING CENTER DIRECTOR PCP - General Nurse Practitioner 02/02/18 [address] [facility] [address] [place], [place] [address] Jose Lopez OD MD Optometry 03/04/18 documented as of this encounter
--- OUTSIDE RECORDS SUMMARY | 2022-02-19 14:30 | XMS_ITS | Encounter Summary ---
:1980 Author Organization [place] Address [address] [place] [address] Care Team Providers Name Role Phone Nelda Peña APRN PUBLIC DEFENDER Primary Care Provider [phone] Jose Lopez OD Unavailable Encounter Details Date Type Department Care Team Description 03/12/2018 Travel Social History Tobacco Use Types Packs/Day [...] at Date Recorded Female 05/08/2020 12:57 PM PROGRAM COORDINATOR EXECUTIVE EDUCATION documented as of this encounter Plan of Treatment Upcoming Encounters Date Type Specialty Care Team Description 04/04/2022 Office Visit ship harbor pilot Kaela Dubois APRN PUBLIC DEFENDER [facility] [address] [place], [place] [address] (Wo rk) 04/23/2022 Virtual Visit Endocrinology Lottie Cedillo PA-C [address] [place], [place] [address] (Wo rk) documented as of this encounter Visit Diagnoses Not on filedocumented in this encounter Additional Health Concerns Assessment Noted Time PHQ-9 Depression Total Score: 3 02/26/2018 4:39 PM PROGRAM COORDINATOR EXECUTIVE EDUCATION documented as of this encounter Care Teams Cat Dog Or Other Pet Groomer Relationship Specialty Start Date End Date Nelda Peña APRN PUBLIC DEFENDER PCP - General Nurse Practitioner 02/02/18 [address] [facility] [address] [place], [place] [address] Jose Lopez OD MD Optometry 03/04/18 documented as of this encounter
--- OUTSIDE RECORDS SUMMARY | 2022-02-19 14:30 | XMS_ITS | Encounter Summary ---
:1980 Author Organization [place] Address [facility] [place] [address] Care Team Providers Name Role Phone Nelda Peña POWER PLANT MANAGER TOP CARRIER Primary Care Provider [phone] Jose Lopez OD Unavailable Reason for Visit Reason Onset Date Comments Refill Request 05/14/2018 Encounter Details Date Type Department Care Team Description 05/14/2018 Lorna Roy [facility] Cristy Jasso, RN Refill Request [address] [place] [address] 3rd Floor [place], [place] [phone] Social History Tobacco Use [...] at Date Recorded Female 05/08/2020 12:57 PM ASSESSMENT SPECIALIST documented as of this encounter Plan of Treatment Upcoming Encounters Date Type Specialty Care Team Description 04/04/2022 Office Visit patient financial services coordinator Kaela Dubois APRN TOP CARRIER [facility] [address] [place], [place] [address] (Wo rk) 04/23/2022 Virtual Visit Endocrinology Lottie Cedillo PA-C [address] [place], [place] [phone] (Wo rk) documented as of this encounter Visit Diagnoses Diagnosis Type 1 diabetes mellitus with complicati ons (H) documented in this encounter Additional Health Concerns Assessment Noted Time PHQ-9 Depression Total Score: 3 02/26/2018 4:39 PM ASSESSMENT SPECIALIST documented as of this encounter Care Teams Ironworker Relationship Specialty Start Date End Date Nelda Peña APRN TOP CARRIER PCP - General Nurse Practitioner 02/02/18 [address] [facility] [address] [place], [place] [phone] Jose Lopez OD MD Optometry 03/04/18 documented as of this encounter
--- OUTSIDE RECORDS SUMMARY | 2022-02-19 14:30 | XMS_ITS | Encounter Summary ---
:1980 Author Organization [place] Address [address] [place] [address] Care Team Providers Name Role Phone Nelda Peña SENIOR DIRECTOR CREATIVE SERVICES SUPERVISOR CUSTOMER RECORDS DIVISION Primary Care Provider Jose Lopez OD Unavailable Reason for Visit Reason Comments Diabetes Education Patient Education - Closed Specialty Diagnoses / Procedures Referred By Contact Refer red To Contact Diagnoses 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) Jeremy Abraham MD [facility] [address] [place] [address] Fax: Referral ID Status Reason Start Date Expiration Date Visits Requ ested Visits Authorized [id number] Closed 05/14/2018 05/14/2019 1 1 Encounter Details Date Type Department Care Team Description 05/29/2018 [facility] Health Diabetes Stephany Roca, Diabetes Education Health/Nurse [address] [facility] SE RN Visit 3rd Floor [facility] [phone] [facility] [phone] [place], [place] [phone] Social History Tobacco Use Types Packs/Day Years [...] at Date Recorded Female 05/08/2020 12:57 PM BIT AND SHANK DEPARTMENT SUPERVISOR documented as of this encounter Patient Instructions Patient InstructionsStephany Roca RN - 05/29/2018 8:30 AM CST Irving Morrison, It was nice meeting you today. Here are your instructions: 1. Plan to wear the LibrePro sensor for 14 days. It is okay to shower, bathe, and swim (up to 3 feetdeep for 30 minutes) 2. Continue with your usual diabetes care plan - check blood sugars and take medicines, as prescribed. 3. Do not cover the sensor with extra adhesive (the small hole in the center of the sensor must remain uncovered) 4. Use a little extra care, especially when getting dressed or exercising, to avoid accidentally loosening or removing the sensor. 5. Remove the sensor if you need to have an MRI or CT scan. Follow-up appointment: with Dr. Abraham June 18 at 8:10 am Stephany Roca RN,CDE [address] [address] [email or web address] 3 Carb Breakfast Choices- Carbohydrate choices found in ( ) ?? cup cooked cereal (1.5) 1 cup blueberries (1) 4 oz skim milk (0.5) 2 tablespoons of nuts (0) 1 whole grain Syrian muffin (2) ?? cup mixed fruit (1) 1 boiled egg (0) 6 oz light yogurt (1) 1 small orange (1) 1 slice whole grain toast (1) 1 slice low fat cheese (0) 1 small whole grain tortilla (1) 1 cup skim milk (1) ?? banana (1) 1 Tablespoon peanut butter (0) 8 oz skim milk (1) + 1 packet of instant breakfast mix (2) 2 slices whole grain toast (2) 1 cup skim milk (1) 1 scrambled egg (0) 1 cup cubed sweet potatoes (2) 1 scrambled egg (0) Vegetables (0) 1 cup skim milk (1) 1 cup of skim milk (1) 1 medium banana (2) 1-2 tablespoons of peanut butter (0) 3 Carbohydrate Choice Sample Meal Plans for Lunch or Supper Carbohydrate choices found in ( ) 2/3 cup whole grain spaghetti noodles (2) + ?? cup low sodium pasta sauce (1)+ 4 oz lean ground beef or turkey (0) + 2 cups lettuce + veggies (0) + 1-2 tsbp salad dressing (0) 2 slices of whole grain bread (2) 3 oz lean turkey (0) + lettuce/tomato (0) 2 tsp watkins (0) 1 small apple (1) 1 cup of low sodium broth based soup (1) + 2 slices of whole grain bread (2) 2 oz of low fat cheese (0) + 1 tsp butter (0) Carrots/celery (0) 2 cups lettuce salad (0) + ?? cup garbanzo beans (1) + + ?? cup tuna (0) + 2 Tablespoons low-fat vinaigrette salad dressing (0) + ?? cup grapes (1) + 6 oz light yogurt (1) 1 cup low sodium broth based soup (1) + 6 saltine crackers (1) + 1 small apple (1) + broccoli/cauliflower and low fat dip (0) 3 oz lean steak (0) + 1 small 3 oz baked potato (1) + 1 tsp low fat sour cream (0) + 1 cup green beans (0) + 1 small dinner roll (1) 1 cup berries (1) + 1 tbsp light whipped cream (0) 2 cups lettuce salad (0) 3 oz grilled chicken (0) 1-2 Tsbp light Caesar dressing (0) + 1 Tbps grated cheese (0) ?? cup grapes (1) 5 Triscuit crackers (1) 8 oz skim milk (1) 3 oz chicken (0) 1 cup sweet potato (2) 1 cup asparagus (0) 1 small apple (1) 16 oz sparkling water (unsweetened) 1 hamburger randall (0) on hamburger bun (2) + 1/2 order of small rivers (1) + + 1 garden salad (0) with 1 package of vinaigrette (0) + 1 cup baby carrots + 1/2 cup green beans-cooked (0) 2 slices whole grain bread (2)+ 2 oz lean ham (0) + leaf lettuce/tomato/onion (0) 2 teaspoons watkins (0) 1 small pear (1) 1 cup raw veggie sticks (0) 2 slices thin crust pizza (2) + 2 cups lettuce salad (0) + 10 osman tomatoes (0) + 2 Tbsp light salad dressing (0) + 1 small peach (1) 2 small whole grain tortillas (2) + ?? cup fat free refried beans (1) + 3 oz shredded lean beef (0) + 2 Tsbp salsa (0)+ lettuce/tomato (0)+ 1 Tbsp light sour cream (0) 1 cup low sodium chicken noodle soup (1) + 2 slices whole grain bread (2) + 2 oz lean turkey (0) + 1oz low fat cheese (0) + 1-2 teaspoons of butter or margarine 3 oz turkey (0) + 1 cup mashed potatoes(2) + 1 tsp butter (0) + 1 cup green beans (0) + ?? cup unsweetened apple sauce (1) 3 oz chicken + 2medium pierogis (2) + 1/3 cup cabbage (0) + ?? cup grapes (1) + ?? cup green beans (0) I cup of beefstroganoff (0) + 2/3 cup egg noodles (2) + 1 cup broccoli (0) + 1 cup carrots (0) + 1 cup of watermelon (1) 4 Carbohydrate Choice Meal Plans for Lunch or Supper Carbohydrate choices found in ( ) 1 cup whole grain spaghetti (3) + ?? cup low sodium pasta sauce (1) + 3 oz lean ground turkey (0) + 2 cups lettuce/veggies (0) + 2 Tbsp dressing (0) 2 slices of whole grain bread (2) 3 oz lean turkey (0) + lettuce/tomato (0) 2 tsp watkins (0) 6 whole grain crackers (1) 1 small apple (1) 1 cup of low sodium broth based soup (1) + 2 slices of whole grain bread (2) 2 oz of low fat cheese (0) + 1 tsp butter (0) Carrots/celery (0) ?? cup grapes (1) 2 cups lettuce salad (0) + ?? cup garbanzo beans (1) + + ?? cup tuna (0) + 2 Tablespoons low-fat vinaigrette salad dressing (0) + 6 oz light yogurt (1) + 3 rye crackers (1) + 8 oz skim milk (1) 2 cups low sodium broth based soup (2) + 6 saltine crackers (1) + 1 small apple (1) + broccoli/cauliflower and low fat dip (0) 3 oz lean steak (0) + medium baked potato (2) + 1 tsp low fat sour cream (0) + 1 cup green beans (0) + 1 small dinner roll (1) 1 cup berries (1) + 1 tbsp light whipped cream (0) 2 cups lettuce salad (0) 3 oz grilled chicken (0) 1-2 Tsbp light Caesar dressing (0) + 1 Tbps grated cheese (0) 1 cup grapes (2) 5 Triscuit crackers (1) 8 oz skim milk (1) 3 oz chicken (0) 1 cup sweet potato (2) 1 cup asparagus (0) 1 small apple (1) 16 oz sparkling water (unsweetened) 1-8 oz glass skim milk (1) 1 hamburger randall (0) on hamburger bun (2) + small mohawk fries (2) + + 1 garden salad (0) with 1 package of vinaigrette (0) + 1 cup baby carrots + 1/2 cup green beans- cooked (0) 2 slices whole grain bread (2)+ 2 oz lean ham (0) + leaf lettuce/tomato/onion (0) 2 teaspoons watkins (0) 1 medium pear (2) 1 cup raw veggie sticks (0) 3 slices thin crust pizza (3) + 2 cups lettuce salad (0) + 10 osman tomatoes (0) + 2 Tbsp light salad dressing (0) + 1 small peach (1) 3-6?? whole grain tortillas (3) + ??cup fat free refried beans (1) + 3 oz shredded lean beef (0) + 2 Tsbp salsa (0)+ lettuce/tomato (0) + 1 Tbsp light sour cream (0) 1 cup low sodium chicken noodle soup (1) + 2 slices whole grain bread (2) + 2 oz lean turkey (0) + 1oz low fat cheese (0) + 1-2 teaspoons of butter or margarine ?? cup peaches (1) 3 oz turkey (0) + 1 cup mashed potatoes (2) + 1 tsp butter (0) + 1 cup green beans (0) + ?? cup unsweetened apple sauce (1) 1-8oz cup of skim milk (1) 3 oz chicken + 3 medium pierogis (3) + 1/3 cup cabbage (0) + ?? cup unsweetened applesauce (1) + ?? cup green beans (0) I cup of beef stroganoff (0) + 1 cup egg noodles (3) +1 cup broccoli (0) + 1 cup carrots (0) + 1 cup of watermelon (1) Snack Ideas for your Meal Plan Protein (1 serving = 6-8 grams of protein each) ??? Beef Jerky ( 2 pieces) ??? Beef Sticks, plain (1 stick) ??? Cheese/Cheese Stick (1 oz) ??? Chicken breast (1 oz) ??? Cottage cheese, low fat (1/4 cup) ??? Crab, Imitation (2 oz) ??? Deli Meat (2 oz) ??? Edamame, boiled (1/2 cup) ??? Egg, hardboiled (1) ??? Shrimp, small (10 pieces) ??? Troy Breast (1 oz) ??? Tuna, canned in water (1 oz) ??? Fairlife Milk (1/2 cup) ??? Yogurt, Luxembourgish : Siggis, Oikos Triple Zero, Dannon Light and Fit, etc (6 oz) Carb (1 carb choice/serving = 15 grams) ??? Apple (medium) ??? Applesauce, unsweetened (1/2 cup) ??? Apricots, dried (4 whole) ??? Banana, medium (1/2) ??? Bread, 1 slice ??? Cantaloupe/Melon (1 cup) ??? Crackers 4-6 (varies by brand) ??? Cherries (15) ??? Cranberries, Dried (2 tbsp) ??? Dark Chocolate (1 oz) ??? Dates, dried (2-3 pieces) ??? Fruit cocktail, in own juice (1/2 cup) ??? Granola Bar (vary by brand) ??? Grapes (1/2 cup) ??? Ice cream, slow churned/low fat (1/2 cup) ??? Kiwi (~2) ??? Mixed Berries (1 cup) ??? Greer (1 medium) ??? Lamb (1 medium) ??? Pear (1/2 medium) ??? Plums (2) ??? Pomegranate (1 small) ??? Popcorn, stove popped (2 cups) ??? Pretzels (3/4 oz) ??? Pudding, sugar free (1/2 cup) ??? Raisins (2 Tbsp) ??? Rice Cake, (2) ??? Skim or 1% milk (1 cup) ??? Tortilla Chips (1 oz) ??? Yogurt (japanese or plain) ?? cup Fat (1 serving = 100 calories) ??? Almonds (2 Tbsp) ??? Avocado (1/3 fruit OR 3 Tbsp) ??? Cashews (11 whole) ??? Cheese (1 oz) ??? Chocolate, dark (3/4 oz) ??? Coconut, unsweetened (1/3 c shredded) ??? Hummus (3 Tbsp) ??? Peanuts (20 pieces) ??? Peanut/Nut Butter (1 Tbsp) ??? Pecans (10 halves) ??? Pumpkin seeds, unshelled (2 Tbsp) ??? Salad dressing (1-2 Tbsp) ??? Manistee seeds (2 Tbsp) ??? Vegetable Dip (1-2 Tbsp) ??? Walnuts (8 halves) Free Foods ??? Carroll Peppers ??? Broccoli ??? Carrots ??? Cauliflower ??? Celery ??? Coffee, black (regular or decaf) ??? Grantham ??? Gelatin, Sugar Free ??? Herbal Tea, unsweetened ??? Pea Pods ??? Pickles (high in sodium) ??? Popsicle, Sugar Free ??? Salsa (2 Tbsp) ??? Tomatoes Combination Snacks ??? Apple + 1 Tbsp peanut butter (carbohydrate + fat) ??? Handful crackers + 1 oz cheese (carbohydrate + fat or protein) ??? Carrot sticks + Hummus (free food + fat) ??? 1 piece of peanut butter toast (carbohydrate + fat) ??? Luxembourgish yogurt + 2 Tbsp sunflower seeds (carbohydrate + fat) ??? Hard-boiled egg + ?? cup grapes (protein + carbohydrate) ??? 1 piece of avocado toast (carbohydrate + fat) ??? Cucumbers + dip (free food + fat) AND SHANK DEPARTMENT SUPERVISOR documented in this encounter Progress Notes Stephany Roca RN - 05/29/2018 8:30 AM CST Images from the original note were not included. Diabetes Self-Management Education & Support Diabetes Education Self Management & Training SUBJECTIVE/OBJECTIVE: Presents for: Individual review Accompanied by: Significant other Diabetes education in the past 24mo: No Focus of Visit: CGM Diabetes type: Type 1 Date of diagnosis: 10/1981 Disease course: Getting harder to manage How confident are you filling out medical forms by yourself:: Quite a bit Diabetes management related comments/concerns: hyperglycemia, overall management of diabetes Transportation concerns: No Other concerns:: None Cultural Influences/Ethnic Background: [place] Diabetes Symptoms & Complications Blurred vision: No Fatigue: No Neuropathy: No Foot ulcerations: No Polydipsia: No Polyphagia: Yes Polyuria: Yes Visual change: No Weakness: No Weight loss: No Slow healing wounds: (sometimes) Recent Infection(s): No Patient Problem List and Family Medical History reviewed for relevant medical history, current medical status, and diabetes risk factors. Vitals: Estimated body mass index is 42.64 kg/m?? as calculated from the following: Height as of 05/14/18: 1.575 m (5' 2.01). Weight as of 05/14/18: 105.8 kg (233 lb 3.2 oz). Last 3 BP: BP Readings from Last 3 Encounters: 05/14/18 137/84 03/12/18 120/82 02/26/18 121/80 History Smoking Status ??? Never Smoker Smokeless Tobacco ??? Never Used Labs: Lab Results Component Value Date A1C 11.5 03/21/2018 Lab Results Component Value Date GLC 257 03/21/2018 Lab Results Component Value Date LDL 91 03/21/2018 HDL Cholesterol Date Value Ref Range Status 03/21/2018 66 >49 mg/dL Final ] GFR Estimate Date Value Ref Range Status 03/21/2018 >90 >60 mL/min/[1.73_m2] Final Comment: Non GFR Calc Starting 03/17/2018, serum creatinine based estimated GFR (eGFR) will be calculated using the Chronic Kidney Disease Epidemiology Collaboration (CKD-EPI) equation. GFR Estimate If Black Date Value Ref Range Status 03/21/2018 >90 >60 mL/min/[1.73_m2] Final Comment: GFR Calc Starting 03/17/2018, serum creatinine based estimated GFR (eGFR) will be calculated using the Chronic Kidney Disease Epidemiology Collaboration (CKD-EPI) equation. Lab Results Component Value Date CR 0.76 03/21/2018 No results found for: MICROALBUMIN Healthy Eating Has some knowledge about carb counting but has not actively been doing it, she requests refresher onthis today Monitoring no glucose information today Taking Medications Diabetes Medication(s) Insulin insulin aspart (NOVOLOG VIAL) 100 UNITS/ML vial 14 units with meals and correction 04/24 >150 Insulin Degludec 100 UNIT/ML SOLN Inject 40 Units Subcutaneous daily Healthy Coping Patient Activation Measure Survey Score: No flowsheet data found. ASSESSMENT: Type 1 diabetes, struggles with control, wants to improve it Patient's most recent Lab Results Component Value Date A1C 11.5 03/21/2018 is not meeting goal of <7.0 INTERVENTION: Education provided today on: We reviewed basic carb counting and Tamiko seemed to understand the information. She was given someinformation provided by Wendy PAREKH (Care Counting book and 3-4 carb choice menus). She will see IGLESIA through weight management clinic too. We reviewed the three sensors on the market and she would like to try the Samantha. We have no start kits in the clinic today. Will place a Samantha Pro just to get glucose data for an upcoming visit with her provider. It can take some time to get the Samantha Flash covered through a DME provider. Patient will find out which DME provider she needs to use and let me know so orders for the Samantha Flash can be sent in. She is bolusing after she eats and is encouraged to take a low estimate of what she needs for food coverage before the meal and make up the difference after. We talked about why she is feeling some of the symptoms she has like thirst, frequent urination, muscle cramps, blurred vision. Opportunities for ongoing education and support in diabetes-self management were discussed. Pt verbalized understanding of concepts discussed and recommendations provided today. PLAN: See Patient Instructions for co-developed, patient-stated behavior change goals. AVS printed and provided to patient today. See Follow-Up section for recommended follow-up. Time Spent: 60 minutes Encounter Type: Individual Any diabetes medication dose changes were made via the CDE Protocol and Collaborative Practice Agreement with the patient's referring provider. A copy of this encounter was shared with the provider. documented in this encounter Plan of Treatment Upcoming Encounters Date Type Specialty Care Team Description 04/04/2022 Office Visit assembler small products Kaela Dubois APRN CNP [facility] [address] [place], [place] [address] (Wo rk) 04/23/2022 Virtual Visit Endocrinology Lottie Cedillo , PAFacundoC [address] [place] [address] (Wo rk) documented as of this encounter Visit Diagnoses Diagnosis Type 1 diabetes mellitus with complicati ons (H) - Primary documented in this encounter Additional Health Concerns Assessment Noted Time PHQ-9 Depression Total Score: 3 02/26/2018 4:39 PM BIT AND SHANK DEPARTMENT SUPERVISOR documented as of this encounter Care Teams Commercial Green Building Designer Relationship Specialty Start Date End Date Nelda Peña APRN SUPERVISOR CUSTOMER RECORDS DIVISION PCP - General Nurse Practitioner 02/02/[address] [place] [address] [address] [place] [address] Jose Lopez OD MD Optometry 03/04/18 documented as of this encounter
--- OUTSIDE RECORDS SUMMARY | 2022-02-19 14:30 | XMS_ITS | Encounter Summary ---
:1980 Author Organization [place] Address [facility] [place] [address] Care Team Providers Name Role Phone Nelda Peña APRN [facility] Primary Care Provider [phone] Jose Lopez OD Unavailable Reason for Visit Reason Comments Diabetic Eye Exam Vision Services - Closed Specialty Diagnoses / Procedures Referred By Contact Refer red To Contact Diagnoses Uncontrolled type 1 diabetes mellitus with hyperglycemia (H) Nelda Peña APRN NURSE EXECUTIVE [address] [facility] [address] [place], [place] [address] Referral ID Status Reason Start Date Expiration Date Visits Requ ested Visits Authorized [id number] Closed 02/17/2018 02/17/2019 1 1 Encounter Details Date Type Department Care Team Description 05/02/2018 Office Visit Jose Chaney, Stable pro liferative diabetic retinopathy of both eyes associated with type 1 diabetes mellitus (H) (Primary Dx); Ophthalmology OD Myopia of both eyes; [address] Myogenic ptosis of right eye lid [address]th [address] [place], [place] 4th Floor [address] [place], [place] [phone] [address] Social History Tobacco Use Types Packs/Day [...] at Date Recorded Female 05/08/2020 12:57 PM PLANTING SUPERVISOR documented as of this encounter Progress Notes Jose Lopez, OD - 05/02/2018 10:00 AM CST History HPI Diabetic Eye Exam Vision is stable. Diabetes characteristics include Type 2. Comments Annual DM exam Vision is stable since LV. No additional comments or concerns. No flashes/floaters. PoH: DME right eye, laser repair OS Last BS 279 today @8:30 Last A1C 11.5 03/21/2018 A1C 11.9 08/29/2006 Loida Moreno COT 10:07 AM May 02, 2018 Last edited by Loida Moreno on 05/02/2018 10:08 AM. (History) Assessment/Plan (E10.3553) Stable proliferative diabetic retinopathy of both eyes associated with type 1 diabetes mellitus (H) (primary encounter diagnosis) Comment: Light PRP right eye, reports history of CME, preretinal heme left eye Plan: Educated patient on clinical findings and the importance of continued management with primary care physician. Referred for retina consultation and possible fluorescein angiography. (H52.13) Myopia of both eyes Comment: Myopia with early presbyopia both eyes, first time bifocal prescription Plan: REFRACTION Dispensed spectacle prescription for composite science teacher wear. Educated patient on possibility of adaptation period, if symptoms do not improve return to clinic for further testing. 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 Complete documentation of historical and exam elements from today's encounter can be found in the full encounter summary report (not reduplicated in this progress note). I personally obtained the chief complaint(s) and history of present illness. I confirmed [...] management plan with the patient and family. Jose Lopez, OD, FAAO TING SUPERVISOR documented in this encounter Nursing Notes Loida Moreno - 05/02/2018 10:00 AM CST Chief Complaints and History of Present Illnesses Patient presents with ??? Diabetic Eye Exam Chief Complaint(s) and History of Present Illness(es) Diabetic Eye Exam Vision: is stable Diabetes Type: Type 2 Comments Annual DM exam Vision is stable since LV. No additional comments or concerns. No flashes/floaters. PoH: DME right eye, laser repair OS Last BS 279 today @8:30 Last A1C 11.5 03/21/2018 A1C 11.9 08/29/2006 Loida Moreno COT 10:07 AM May 02, 2018 TING SUPERVISOR documented in this encounter Plan of Treatment Upcoming Encounters Date Type Specialty Care Team Description 04/04/2022 Office Visit can cleaner Kaela Dubois APRN [facility] [address] [place], [place] [phone] (Maryjane pa) 04/23/2022 Virtual Visit Endocrinology Lottie Cedillo PA-C [address] [place], [place] [phone] (Maryjane pa) documented as of this encounter Procedures Procedure Name Priority Date/Time Associated Diagnosis Comme [facility] REFRACTION Routine 05/04/2018 8:07 AM PLANTING SUPERVISOR Myopia of both ey es documented in this encounter Visit Diagnoses Diagnosis Stable proliferative diabetic retinopath y of both eyes associated with type 1 diabetes mellitus (H) - Primary Myopia of both eyes Myopia Myogenic ptosis of right eyelid Myogenic ptosis documented in this encounter Additional Health Concerns Assessment Noted Time PHQ-9 Depression Total Score: 3 02/26/2018 4:39 PM PLANTING SUPERVISOR documented as of this encounter Care Teams Clip On Sunglasses Inspector Relationship Specialty Start Date End Date Nelda Peña, POLE SETTER NURSE EXECUTIVE PCP - General Nurse Practitioner 02/02/18 [address] [facility] [address] [place] [address] Jose Lopez, SHELL ARRIOLA Optometry 03/04/18 documented as of this encounter
--- OUTSIDE RECORDS SUMMARY | 2022-02-19 14:30 | XMS_ITS | Encounter Summary ---
:1980 Author Organization [place] Address [facility] [place] [address] Care Team Providers Name Role Phone Nelda Peña CHAIRMAN & CEO AGRICULTURE TEACHER Primary Care Provider [phone] Jose Lopez OD Unavailable Reason for Referral Consultation - Closed Specialty Diagnoses / Procedures Referred By Contact Refer red To Contact Diagnoses 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) Jeremy Abraham MD [place] [address] [place] [place] [address] Fax: Referral ID Status Reason Start Date Expiration Date Visits Requ ested Visits Authorized [id number] Closed 05/14/2018 05/14/2019 1 1 atient Education - Closed Specialty Diagnoses / Procedures Referred By Contact Refer red To Contact Diagnoses 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) Jeremy Abraham MD [place] [address] [place] [address] Fax: Referral ID Status Reason Start Date Expiration Date Visits Requ ested Visits Authorized [id number] Closed 05/14/2018 05/14/2019 1 1 CTOR OF HEAD START Reason for Visit Reason Comments RECHECK DM TYPE 1 Consultation - Closed Specialty Diagnoses / Procedures Referred By Contact Refer red To Contact Diagnoses Uncontrolled type 1 diabetes mellitus with hyperglycemia (H) Casey Nelda M, CHAIRMAN & CEO AGRICULTURE TEACHER [address] [facility] [address] [place], [place] [address] Referral ID Status Reason Start Date Expiration Date Visits Requ ested Visits Authorized [id number] Closed 02/17/2018 02/17/2019 1 1 Encounter Details Date Type Department Care Team Description 05/14/2018 Office Visit Jeremy Campo, Type 1 diab etes mellitus Endocrinology MD with complications (H) 909 [facility] (Primary Dx) 3rd Floor [place], [place] [address] [facility] [address] [place], [place] [address] Social History Tobacco Use Types Packs/Day Years [...] Recorded Female 05/08/2020 12:57 PM DIRECTOR OF HEAD START documented as of this encounter Last Filed Vital Signs Vital Sign Reading Time Taken Comments Blood Pressure 137/84 05/14/2018 8:31 AM DIRECTOR OF HEAD START Pulse 109 05/14/2018 8:31 AM DIRECTOR OF HEAD START Temperature - - Respiratory Rate - - Oxygen Saturation - - Inhaled Oxygen Concentration - - Weight 105.8 kg (233 lb 3.2 oz) 05/14/2018 8:31 AM DIRECTOR OF HEAD START Height 157.5 cm (5' 2.01) 05/14/2018 8:31 AM DIRECTOR OF HEAD START Body Mass Index 42.64 05/14/2018 8:31 AM DIRECTOR OF HEAD START documented in this encounter Patient Instructions Patient InstructionsJeremy Abraham MD - 05/14/2018 8:40 AM CST It was a pleasure seeing you in clinic today. As we discuss plan as followin. Stop NPH and regular insulin 2. Start taking Tresiba 40 units daily and Novolog 14 unit(s) with meals with correction scale 04/24 over 150 3. construction sales representative and weight management referral If you have any questions or concerns, our clinic phone number is [phone]. For urgent questions please contact Endocrinology on-call [phone]. Your provider has referred you to: [facility]: [facility] [place] [phone] Jeremy Abraham MD Endocrine Fellow CTOR OF HEAD START documented in this encounter Progress Notes Jeremy Abraham MD - 05/14/2018 8:40 AM CST ENDOCRINE CLINIC NOTE Chief complaint: Tamiko is a 37 year old female seen in consultation at the request of Dr. Nelda Herrera. HISTORY OF PRESENT ILLNESS Tamiko is here to re-establish care for T1DM. Complications: Retinopathy: bilateral proliferative retinopathy, last seen [...] glucose is high. Previous DM management includes: - Insulin pump when she was in college Then switch to NPH and RI given insurance issues Patient reported taking the following insulin regimen for about 10 years: - NPH 16 unit(s) BID - Regular [...] RI 2/15 for morning and dinner and 15 for lunch. Lifestyle and food intake as following: No exercise. 3 Meals per day: breakfast is yogurt/ muffin, lunch is burger/ sandwich and dinner is meat/ fish/ vegetables. 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 Alcohol 2-3 drinks/month, smoking marijuana. No plan for . She just has a new job with new insurance and would like to re-establish care and get on analog insulin. No T1DM/ thyroid disease in family. Glucose reading: Did not have glucometer with her today. Report mostly high as above Patient also wonder if she can get on metformin to help with insulin sensitivity. REVIEW OF SYSTEMS 10 point negative except [...] ??? CLARITIN 10 MG OR TABS ??? insulin degludec (TRESIBA) 100 UNIT/ML pen ??? insulin NPH (HUMULIN N/NOVOLIN N) 100 UNIT/ML injection ??? insulin regular (HUMULIN R/NOVOLIN R) 100 UNIT/ML injection ??? levonorgestrel (MIRENA) 20 MCG/24HR IUD ??? LORazepam (ATIVAN) 0.5 MG tablet ??? NOVOLOG FLEXPEN 100 UNIT/ML soln No current facility-administered medications for this visit. [...] Topics ??? Alcohol use: Yes Physical Exam BP 137/84 Pulse 109 Ht 1.575 m (5' 2.01) Wt 105.8 kg (233 lb 3.2 oz) BMI 42.64 kg/m?? Body mass index is 42.64 kg/m??. GENERAL : In no apparent distress, obese SKIN: Normal color, normal temperature, Dry skin. No hirsutism, alopecia or purple striae. EYES: PERRL, EOMI, No scleral icterus MOUTH: Moist, pink; pharynx clear NECK: No visible masses. No palpable adenopathy, or masses. No carotid bruits. THYROID: Normal, nontender, smooth / firm texture, no nodules, no Bruit RESP: Lungs clear to auscultation bilaterally CARDIAC: Regular rate and rhythm, normal S1 S2, without murmurs, rubs or gallops ABDOMEN: small whitish striae, Normal bowel sounds; soft, nontender, No subcutaneous scar NEURO: awake, alert, responds appropriately to questions. Cranial nerves intact. Moves all extremities; Gait normal. No tremor of the outstretched hand. Monofilament test WNL EXTREMITIES: No clubbing, cyanosis or edema. DATA REVIEW Labs/Imaging 02/2018 UACR 21.95 Cr 0.76 Hgb 11.8 LDL 91 TSH Date Value Ref Range Status 03/21/2018 1.59 0.40 - 4.00 mU/L Final No results found for: T4] Lab Results Component Value Date A1C 11.5 03/21/2018 A1C 11.9 08/29/2006 ASSESSMENT/PLAN: Tamiko is a 37 year old female with depression, poor control T1DM with proliferative DR seen in consultation at the request of Dr. Nelda Peña. ## T1DM with proliferative DR Pt has longstanding T1DM with proliferative DR. No other micro/macrovascular complication. Denied hypoglycemia unawareness. Patient is fatique with disease and does not check glucose much because of high numbers. A1C has been high. -- CDE referral for CGM and carb counting -- switch to insulin analog: Current TDD 80 unit(s)/day --> Tresiba 40 unit(s) daily and Novolog 14 unit(s) TID with meal andcorrection 04/24 over 150 -- consider metformin next visit BP: 137/84 Lipid: LDL 91 02/2018 Retinopathy: follows with ophthalmology 05/2018 Neuropathy: normal monofilament test 05/2018 Nephropathy: no microalbuminuria 02/2018 Other autoimmune disease: TSH WNL 02/2018, Celiac screening next blood draw ## Obesity Patient would like to lose weight. Tried diet herself but did not success. Cannot engage in exercise. Patient is interested in medical weight management. -- weight management clinic referral --Will consider metformin at future visit Patient Instructions It was a pleasure seeing you in clinic today. As we discuss plan as followin. Stop NPH and regular insulin 2. Start taking Tresiba 40 units daily and Novolog 14 unit(s) with meals with correction scale /25 over 150 3. construction sales representative and weight management referral If you have any questions or concerns, our clinic phone number is [phone]. For urgent questions please contact Endocrinology on-call [phone]. Your provider has referred you to: [facility]: [facility] [place] [phone] Jeremy Abraham MD Endocrine Fellow Orders Placed This Encounter Procedures ??? ENGRAVER AUTOMATIC REFERRAL ??? BARIATRIC ADULT REFERRAL RTC 1 month ?? Patient seen and examined with staff manager fine Dr Cavanaugh. ?? Jeremy Abraham MD Diabetes, Metabolism and Endocrinology Fellow Pager: [phone] I have seen and examined the patient and agree with the fellow's plan of care as noted. May 15, 2018 Dr. Ibeth Cavanaugh [phone] CTOR OF HEAD START documented in this encounter Plan of Treatment Upcoming Encounters Date Type Specialty Care Team Description 04/04/2022 Office Visit husker operator Kaela Dubois APRN [facility] [address] [place] [address] (Wo rk) 04/23/2022 Virtual Visit Endocrinology Lottie Cedillo PA-C [address] [place], [place] [phone] (Wo rk) Scheduled Referrals Name Type Priority Associated Diagnoses Order S chedule ENGRAVER AUTOMATIC Referral Routine Type 1 diabetes mellitu s Ordered: 05/14/2018 REFERRAL with complications (H) BARIATRIC ADULT Referral Routine Type 1 diabetes mellitus Ordered: 05/14/2018 REFERRAL with complications (H) documented as of this encounter Results Tissue transglutaminase popeye IgA and IgG (08/17/2018 12:36 PM CDT) [facility] Method Time Signature Tissue 1 <7 U/mL 08/18/2018 [facility] Transglutaminase 11:30 AM [facility] MEDICAL Antibody IgA [facility] Comment: Negative The tTG-IgA assay has limited utility fo r patients with decreased levels of IgA. Screening for celiac disease should include IgA testing to rule out selective IgA deficiency and to guide se lection and interpretation of serological testing. tTG-IgG testing may be positive in celiac disease patients with IgA deficiency. Tissue Transglutaminase Popeye <1 <7 U/mL 08/18/2018 1 1:30 AM [facility] IgG [facility] Comment: Negative Specimen Anatomical Collection Method Collection Time Receive d Time (Source) Location / / Volume Laterality Blood specimen 08/17/2018 12:36 9 (specimen) PM CDT 12:39 PM CDT Jeremy Abraham MD LAB - BLOOD ORDERABLES Performing Organization Address City/State/ZIP Code Phon e Number [facility] [address] [place], [place] [id number] [place] [address] documented in this encounter Visit Diagnoses Diagnosis Type 1 diabetes mellitus with complicati ons (H) - Primary documented in this encounter Additional Health Concerns Assessment Noted Time PHQ-9 Depression Total Score: 3 02/26/2018 4:39 PM DIRECTOR OF HEAD START documented as of this encounter Care Teams Compress Trucker Relationship Specialty Start Date End Date Nelda Peña APRN AGRICULTURE TEACHER PCP - General Nurse Practitioner 02/02/18 420 [facility] [address] [place] [address] Jose Lopez OD MD Optometry 03/04/18 documented as of this encounter
--- OUTSIDE RECORDS SUMMARY | 2022-02-19 14:30 | XMS_ITS | Encounter Summary ---
:1980 Author Organization [place] Address [facility] [place] [address] Care Team Providers Name Role Phone Nelda Peña SHINE WORKER MOTORBOAT OPERATOR Primary Care Provider [phone] Jose Lopez OD Unavailable Jillian Dubois SHINE WORKER MOTORBOAT OPERATOR Unavailable [phone] Nelda Peña SHINE WORKER MOTORBOAT OPERATOR Unavailable [phone] Seda Moy MD Unavailable [phone] Lisa Hughes MD Unavailable Jay Salas MD Unavailable Jay Salas MD Unavailable Nelda Peña APRN MOTORBOAT OPERATOR Unavailable [phone] Nawaf Morocho MD Unavailable Nawaf Morocho MD Unavailable Lotite Cedillo PA-C Unavailable Azeem Lindsey SHINE WORKER MOTORBOAT OPERATOR Unavailable [phone] Teodoro Joaquin MD Unavailable [phone] Sherly Jillian Arelis SHINE WORKER MOTORBOAT OPERATOR Unavailable [phone] Mynor Barry MD Unavailable Jayne Peñanaeem Roy SHINE WORKER MOTORBOAT OPERATOR Unavailable [phone] Nawaf Morocho MD Unavailable Mynor Barry MD Unavailable Teodoro Joaquin MD Unavailable [phone] Nelda Peña SHINE WORKER MOTORBOAT OPERATOR Unavailable [phone] Reason for Visit Reason Onset Date Comments Appointment 03/26/2018 Encounter Details Date Type Department Care Team Description 03/26/2018 Telephone [facility] Bharti Hanna Appointment [place] [address] al [facility] 88 3rd Fl,[facility] [address] [place] [phone] Social History Tobacco Use Types Packs/Day [...] at Date Recorded Female 05/08/2020 12:57 PM IRS AGENT documented as of this encounter Miscellaneous Notes Telephone Encounter - Bharti Hanna - 03/26/2018 3:59 PM CST LVM for pt about scheduling with Dr Young next available AGENT documented in this encounter Plan of Treatment Upcoming Encounters Date Type Specialty Care Team Description 04/04/2022 Office Visit certified medical asst Kaela Dubois [facility]N [facility] [address] [place] [address] (Wo rk) 04/23/2022 Virtual Visit Endocrinology Lottie Cedillo PA-C [address] [place], [place] [phone] (Wo rk) documented as of this encounter Visit Diagnoses Not on filedocumented in this encounter Additional Health Concerns Infection Onset Date Last Indicated Resolved Time Rule Out COVID-19 02/08/2022 02/08/2022 02/10/2022 1:3 0 PM IRS AGENT Assessment Noted Time PHQ-9 Depression Total Score: 3 02/26/2018 4:39 PM IRS AGENT documented as of this encounter Care Teams Medical Office Clerk Relationship Specialty Start Date End Date Nelda Peña, PCP - General Nurse Practitioner 02/02/18 [facility] [address] [place], [place] [address] Jose Lopez OD MD Optometry 03/04/18 Jillian Dubois Nurse Practitioner Nurse Practitioner 08/17/18 [facility]AW [facility] [address] [place], [place] [phone] Nelda Peña, Assigned PCP 03/12/20 03/03/21 [facility] [address] [facility] [address] [place], [place] [address] Seda Moy Assigned OBGYN Provider 01/21/20 01/27/21 MD Jai [address] [place], [place] [phone] Lisa Hughes, Assigned Endocrinology 01/21/20 06/13/20 MD Provider [address] [place] [address] Jay Salas MD Assigned Pediatric 01/21/20 04/30/[address] [place] [address] Provider [place], [place] [phone] Jay Salas MD Assigned Surgical 01/21/20 04/29/[address] [place] [address] Nelda Peña, Assigned PCP 08/19/19 03/11/[address] [place] [address] Nawaf Morocho MD Dermatology 04/24/[address] [address] Nawaf Morocho, Assigned Surgical 04/30/[address] [address] Lottie Cedillo, Assigned Endocrinology 06/14/20 PA-C Provider [address] [place] [address] Azeem Lindsey, Assigned Behavioral 06/18/20 [facility] Provider [address] [place], [place] [address] Liz Kirkland, Assigned Surgical 12/10/20 MD Teodoro Provider [address] [place] [phone] Jillian Dubois Assigned OBGYN Provider 01/28/21 SHAW [place]ante MOTORBOAT OPERATOR [facility] [address] [place], [place] [address] Mynor Barry, Assigned PCP 03/04/21 04/07/21 [address] [place], [place] [address] Nelda Peña, Assigned PCP 04/08/21 08/31/21 SHINE WORKER MOTORBOAT OPERATOR [address] [phone] Nawaf Morocho, Assigned Surgical 04/29/21 MD Provider [facility] 516 [facility] [address] [place], [place] [address] Mynor Barry, Assigned PCP 09/01/21 10/05/21 [address] [place], [place] [address] Liz Kirkland, Assigned Surgical 10/27/21 MD Teodoro Provider [address] [place] [address] Nelda Peña, Assigned PCP 10/06/21 SHINE WORKER MOTORBOAT OPERATOR [address] [address] documented as of this encounter
--- OUTSIDE RECORDS SUMMARY | 2022-02-19 14:30 | XMS_ITS | Encounter Summary ---
:1980 Author Organization [place] Address [facility] [place] [address] Care Team Providers Name Role Phone Nelda Peña DISTRIBUTOR PUBLICATIONS CONTENT MANAGER Primary Care Provider Jose Lopez OD Unavailable Reason for Visit Reason Onset Date Comments Appointment 06/16/2018 For Retina consult a ppt and Oculoplastics consult appt Encounter Details Date Type Department Care Team Description 06/16/2018 Telephone [facility] Ophthalmolo gy Jose Lopez, Appointment (For Retina [address] [facility] SE OD consult appt and 4th Floor 909 [facility] Oculoplastics consult [place], [place] SE appt) [address] 4th Floor [phone] [place] [address] Social History Tobacco Use Types [...] at Date Recorded Female 05/08/2020 12:57 PM BOW STRING MAKER documented as of this encounter Plan of Treatment Upcoming Encounters Date Type Specialty Care Team Description 04/04/2022 Office Visit transfer table operator Kaela Dubois APRN CONTENT MANAGER [facility] [address] [place] [address] (Wo rk) 04/23/2022 Virtual Visit Endocrinology Lottie Cedillo PA-C [address] [place], [place] [address] (Maryjane rk) documented as of this encounter Visit Diagnoses Not on filedocumented in this encounter Additional Health Concerns Assessment Noted Time PHQ-9 Depression Total Score: 3 02/26/2018 4:39 PM BOW STRING MAKER documented as of this encounter Care Teams Manufacturing Process Technician Relationship Specialty Start Date End Date Nelda Peña APRN CONTENT MANAGER PCP - General Nurse Practitioner 02/02/18 [address] [facility] [address] [place], [place] [phone] Jose Lopez OD MD Optometry 03/04/18 documented as of this encounter
--- OUTSIDE RECORDS SUMMARY | 2022-02-19 14:30 | XMS_ITS | Encounter Summary ---
:1980 Author Organization [place] Address [address] [place] [address] Care Team Providers Name Role Phone Nelda Peña APRN PRESSURIZER Primary Care Provider [phone] Jose Lopez OD Unavailable Encounter Details Date Type Department Care Team Description 05/14/2018 Travel Social History Tobacco Use Types Packs/Day [...] Recorded Female 05/08/2020 12:57 PM QUALITY ASSURANCE PROJECT MANAGER documented as of this encounter Plan of Treatment Upcoming Encounters Date Type Specialty Care Team Description 04/04/2022 Office Visit rn call center Kaela Dubois APRN PRESSURIZER [facility] [address] [place], [place] [address] (Wo rk) 04/23/2022 Virtual Visit Endocrinology Lottie Cedillo PA-C [address] [place], [place] [address] (Wo rk) documented as of this encounter Visit Diagnoses Not on filedocumented in this encounter Additional Health Concerns Assessment Noted Time PHQ-9 Depression Total Score: 3 02/26/2018 4:39 PM QUALITY ASSURANCE PROJECT MANAGER documented as of this encounter Care Teams Folder Seamer Relationship Specialty Start Date End Date Nelda Peña APRN PRESSURIZER PCP - General Nurse Practitioner 02/02/18 420 [facility] [address] [place], [place] [address] Jose Lopez OD MD Optometry 03/04/18 documented as of this encounter
--- OUTSIDE RECORDS SUMMARY | 2022-02-19 14:30 | XMS_ITS | Encounter Summary ---
:1980 Author Organization [place] Address [facility] [place] [address] Care Team Providers Name Role Phone Nelda Peña VICE PRESIDENT OF INSTRUCTION [facility] Primary Care Provider [phone] Jose Lopez OD Unavailable Reason for Visit Reason Onset Date Comments Appointment 05/18/2018 Encounter Details Date Type Department Care Team Description 05/18/2018 Telephone [facility] gy Jose Lopez, OD Appointment [address] [facility] [address] [facility] 4th Floor 4th Floor [place], [place] [address] [place], [place] [phone] (Wo rk) Social History Tobacco Use [...] at Date Recorded Female 05/08/2020 12:57 PM LANGUAGES AND LITERATURE INSTRUCTOR documented as of this encounter Plan of Treatment Upcoming Encounters Date Type Specialty Care Team Description 04/04/2022 Office Visit corn sheller operator Kaela Dubois APRN DRILL OPERATOR [facility] [address] [place], [place] [address] (Wo rk) 04/23/2022 Virtual Visit Endocrinology Lottie Cedillo , LUIS [facility] [address] [place] [phone] (Wo rk) documented as of this encounter Visit Diagnoses Not on filedocumented in this encounter Additional Health Concerns Assessment Noted Time PHQ-9 Depression Total Score: 3 02/26/2018 4:39 PM LANGUAGES AND LITERATURE INSTRUCTOR documented as of this encounter Care Teams Napkin Machine Operator Relationship Specialty Start Date End Date Nelda Peña APRN DRILL OPERATOR PNEUMATIC PCP - General Nurse Practitioner 02/02/18 [address] [facility] [address] [place] [address] Jose Lopez OD MD Optometry 03/04/18 documented as of this encounter
--- OUTSIDE RECORDS SUMMARY | 2022-02-19 14:30 | XMS_ITS | Encounter Summary ---
:1980 Author Organization [place] Address [address] [place] [address] Care Team Providers Name Role Phone Nelda Peña QUALITY REP DEPUTY SHERIFF CUSTODY Primary Care Provider [phone] Jose Lopez OD Unavailable Encounter Details Date Type Department Care Team Description 03/21/2018 [facility] Scr eening for diabetic retinopathy; [facility] or Uncontrolled type 1 diabetes mellitus with hyperglycemia (H); [address] [facility] Screening [place] [address] Social History Tobacco Use Types Packs/Day Years [...] at Date Recorded Female 05/08/2020 12:57 PM RENAL DIETITIAN documented as of this encounter Plan of Treatment Upcoming Encounters Date Type Specialty Care Team Description 04/04/2022 Office Visit bread stacker Kaela Dubois APRN DEPUTY SHERIFF CUSTODY [facility] [address] [place] [address] (Wo rk) 04/23/2022 Virtual Visit Endocrinology Lottie Cedillo PA-C [address] [place] [address] (Wo rk) documented as of this encounter Procedures Procedure Name Priority Date/Time Associated Diagnosis Comme nts ALBUMIN RANDOM URINE Routine 03/21/2018 8:45 Uncontrolled type 1 Results for this QUANTITATIVE AM RENAL DIETITIAN diabetes mellitus procedure are in with hyperglycemia the resul ts (H) section. TSH Routine 03/21/2018 8:44 Screening for thyroid Res ults for this AM RENAL DIETITIAN disorder procedure are i n the results section. LIPID REFLEX TO Routine 03/21/2018 8:44 Screening for Results for this DIRECT LDL PANEL AM RENAL DIETITIAN diabetic retinopathy pro cedure are in the results section. HEMOGLOBIN A1C Routine 03/21/2018 8:44 Uncontrolled type 1 Res ults for this AM RENAL DIETITIAN diabetes mellitus procedure are in with hyperglycemia the resul ts (H) section. COMPREHENSIVE Routine 03/21/2018 8:44 Uncontrolled type 1 Resu lts for this METABOLIC PANEL AM RENAL DIETITIAN diabetes mellitus procedu re are in with hyperglycemia the resul ts (H) section. CBC WITH PLATELETS Routine 03/21/2018 8:44 Uncontrolled type 1 Results for this AM RENAL DIETITIAN diabetes mellitus procedure are in with hyperglycemia the resul ts (H) section. documented in this encounter Results Albumin Random Urine Quantitative with Creat Ratio (03/21/2018 8:45 AM RENAL DIETITIAN) P athologist Signature Creatinine 154 mg/dL 03/21/2018 [facility] Urine 2:20 PM [facility] Albumin Urine 34 mg/L 03/21/2018 [facility] mg/L 2:20 PM [facility] Albumin Urine 21.95 0 - 25 03/21/2018 [facility] mg/g Cr mg/g Cr 2:20 PM [facility] Specimen Anatomical Collection Method Collection Time Receive d Time (Source) Location / / Volume Laterality Urine specimen 03/21/2018 8:45 AM 018 8:46 (specimen) RENAL DIETITIAN AM RENAL DIETITIAN Nelda Peña QUALITY REP DEPUTY SHERIFF CUSTODY LAB - URINE ORDERABLES Performing Organization Address City/[facility]/ZIP Code Phon e Number [facility] [address], [place] [address] TSH (03/21/2018 8:44 AM RENAL DIETITIAN) P athologist Signature TSH 1.59 0.40 - 4.00 03/21/2018 [facility] mU/L 2:07 PM [facility] Specimen Anatomical Collection Method Collection Time Receive d Time (Source) Location / / Volume Laterality Blood specimen 03/21/2018 8:44 AM 018 8:45 (specimen) RENAL DIETITIAN AM RENAL DIETITIAN Nelda Peña QUALITY REP DEPUTY SHERIFF CUSTODY LAB - BLOOD ORDERABLES Performing Organization Address City/[facility]/ZIP Code Phon e Number [facility] [address] [place] [address] (ABNORMAL) Comprehensive metabolic panel (03/21/2018 8:44 AM RENAL DIETITIAN) Analysis Performed At Patho logist Time Signature Sodium 136 133 - 144 03/21/2018 [facility] mmol/L 2:07 PM [facility] Potassium 4.2 3.4 - 5.3 03/21/2018 [facility] mmol/L 2:07 PM [facility] Chloride 104 94 - 109 03/21/2018 [facility] mmol/L 2:07 PM [facility] Carbon Dioxide 26 20 - 32 03/21/2018 [facility] mmol/L 2:07 PM [facility] Anion Gap 6 3 - 14 03/21/2018 [facility] mmol/L 2:07 PM [facility] Glucose 257 (H) 70 - 99 03/21/2018 [facility] mg/dL 2:07 PM [facility] Comment: Fasting specimen Urea Nitrogen 14 7 - 30 mg/dL 03/21/2018 2:07 PM [facility] Creatinine 0.76 0.52 - 1.04 mg/dL 03/21/2018 2:07 PM CS T [facility] GFR Estimate >90 >60 03/21/2018 2:07 PM [facility] mL/min/{1.73_m2} [facility] Comment: Non GFR Calc Starting 03/17/2018, serum creatinine ba sed estimated GFR (eGFR) will be calculated using the Chronic Kidney Dise [facility] Epidemiology Collaboration (CKD-EPI) equation. GFR Estimate If >90 >60 mL/min/{1.73_m2} 03/21/2018 2: 07 PM [facility] Black [facility] Comment: GFR Calc Starting 03/17/2018, serum creatinine ba sed estimated GFR (eGFR) will be calculated using the Chronic Kidney Dise [facility] Epidemiology Collaboration (CKD-EPI) equation. Calcium 8.9 8.5 - 10.1 03/21/2018 2:07 PM [facility] mg/dL [facility] Bilirubin Total 0.6 0.2 - 1.3 mg/dL 03/21/2018 2:07 PM [facility] Albumin 3.4 3.4 - 5.0 g/dL 03/21/2018 2:07 PM [facility] Protein Total 6.9 6.8 - 8.8 g/dL 03/21/2018 2:07 PM [facility] Alkaline Phosphatase 80 40 - 150 U/L 03/21/2018 2:07 PM [facility] ALT 15 0 - 50 U/L 03/21/2018 2:07 PM [facility] AST 11 0 - 45 U/L 03/21/2018 2:07 PM [facility] Specimen Anatomical Collection Method Collection Time Receive d Time (Source) Location / / Volume Laterality Blood specimen 03/21/2018 8:44 AM 018 8:45 (specimen) RENAL DIETITIAN AM RENAL DIETITIAN Nelda Peña QUALITY REP DEPUTY SHERIFF CUSTODY LAB - BLOOD ORDERABLES Performing Organization Address City/State/ZIP Code Phon e Number [facility] [address] [place] [address] (ABNORMAL) Hemoglobin A1c (03/21/2018 8:44 AM RENAL DIETITIAN) Analysis Performed At Patho logist Time Signature Hemoglobin A1C 11.5 (H) 0 - 5.6 % 03/21/2018 [facility] 9:14 AM RENAL DIETITIAN [facility] Comment: Results confirmed by repeat test Normal <5.7% Prediabetes 5.7-6.4% ??Diab etes 6.5% or higher - adopted from ADA consensus guidelines. Specimen Anatomical Collection Method Collection Time Receive d Time (Source) Location / / Volume Laterality Blood specimen 03/21/2018 8:44 AM 018 8:45 (specimen) RENAL DIETITIAN AM RENAL DIETITIAN Nelda [place] QUALITY REP DEPUTY SHERIFF CUSTODY LAB - BLOOD ORDERABLES Performing Organization Address [facility]/ZIP Code Phon e Number [facility] [address] [address] (ABNORMAL) CBC with platelets (03/21/2018 8:44 AM RENAL DIETITIAN) P athologist Signature WBC 6.8 4.0 - 11.0 03/21/2018 [facility] 10e9/L 9:05 AM [facility] RBC Count 4.48 3.8 - 5.2 03/21/2018 [facility] 10e12/L 9:05 AM [facility] Hemoglobin 11.8 11.7 - 15.7 03/21/2018 [facility] g/dL 9:05 AM [facility] Hematocrit 37.2 35.0 - 47.0 03/21/2018 [facility] % 9:05 AM [facility] MCV 83 78 - 100 fl 03/21/2018 [facility] 9:05 AM RENAL DIETITIAN [facility] MCH 26.3 (L) 26.5 - 33.0 03/21/2018 [facility] pg 9:05 AM [facility] Comment: Results confirmed by repeat chaz t MCHC 31.7 31.5 - 36.5 g/dL 03/21/2018 9:[address] [facility] RDW 14.7 10.0 - 15.0 % 03/21/2018 9:05 AM RENAL DIETITIAN REK[facility] [place] [facility] Platelet Count 247 150 - 450 10e9/L 03/21/2018 9:[address] [facility] Specimen Anatomical Collection Method Collection Time Receive d Time (Source) Location / / Volume Laterality Blood specimen 03/21/2018 8:44 AM 018 8:45 (specimen) RENAL DIETITIAN AM RENAL DIETITIAN Nelda Peña APRN, CNP LAB - BLOOD ORDERABLES Performing Organization Address City/[facility]/ZIP Code Phon e Number [facility] [address] [place] [address] Lipid panel reflex to direct LDL Fasting (03/21/2018 8:44 AM RENAL DIETITIAN) athologist Signature Cholesterol 176 <200 mg/dL 03/21/2018 [facility] 2:07 PM [facility] Triglycerides 96 <150 mg/dL 03/21/2018 [facility] CS 2:07 PM [facility] Comment: Fasting specimen HDL Cholesterol 66 >49 mg/dL 03/21/2018 2:[address] [facility] LDL Cholesterol 91 <100 mg/dL 03/21/2018 2:07 PM RENAL DIETITIAN [facility] Comment: Desirable: <100 mg/dl Non HDL Cholesterol 110 <130 mg/dL 03/21/2018 2:07 PM RENAL DIETITIAN [facility] Specimen Anatomical Collection Method Collection Time Receive d Time (Source) Location / / Volume Laterality Blood specimen 03/21/2018 8:44 AM 018 8:45 (specimen) RENAL DIETITIAN AM RENAL DIETITIAN Nelda Peña APRN, CNP LAB - BLOOD ORDERABLES Performing Organization Address City/[facility]/ZIP Code Phon e Number [facility] [address] [place] [address] documented in this encounter Visit Diagnoses Diagnosis Screening for diabetic retinopathy Screening for other eye conditions Uncontrolled type 1 diabetes mellitus wi th hyperglycemia (H) Screening for thyroid disorder documented in this encounter Additional Health Concerns Assessment Noted Time PHQ-9 Depression Total Score: 3 02/26/2018 4:39 PM RENAL DIETITIAN documented as of this encounter Care Teams Editorial Manager Relationship Specialty Start Date End Date Overkamp, Nelda M, QUALITY REP DEPUTY SHERIFF CUSTODY PCP - General Nurse Practitioner 02/02/18 420 [facility] [address] [place] [address] Jose Lopez OD MD Optometry 03/04/18 documented as of this encounter
--- OUTSIDE RECORDS SUMMARY | 2022-02-19 14:31 | XMS_ITS | Encounter Summary ---
:1980 Author Organization [place] Address [facility] [place] [address] Care Team Providers Name Role Phone Real Herman MD Primary Care Provider Reason for Visit Reason Comments Derm Problem on back Encounter Details Date Type Department Care Team Description 03/29/2007 Office Visit [facility] Sa perfecto Velazco H, in [facility] are ERROL [address] [place] [address] [place] [phone] [place] [address] (Wo rk) Social History Tobacco Use Types Packs/Day Years Used Date Smoking Tobacco: Never Alcohol Use Standard Drinks/Week Comments Not Asked 0 (1 standard drink = 0.6 oz [...] at Date Recorded Female 05/08/2020 12:57 PM REEFER ENGINEER documented as of this encounter Last Filed Vital Signs Vital Sign Reading Time Taken Comments Blood Pressure 114/80 03/29/2007 10:15 AM REEFER ENGINEER Pulse 115 03/29/2007 10:15 AM REEFER ENGINEER Temperature 36.5 ??C (97.7 ??F) 03/29/2007 10:15 AM REEFER ENGINEER Respiratory Rate - - Oxygen Saturation - - Inhaled Oxygen Concentration - - Weight - - Height - - Body Mass Index - - documented in this encounter Progress Notes Java Swing Developer, Dmj - 03/30/2007 12:28 PM CST SUBJECTIVE: 26-year-old female here complaining of a boil on her left lower back area. She states that she firstnoticed it 3 days ago. She picked at it and seemed to get some purulent discharge coming out of it. Her mother did that again yesterday and had more drainage coming out of it. Patient is here today because she continued to have swelling, pain and redness but no more discharge. She wants to make sure that it isn???t getting infected. In her past she has had couple of skin infections with boils on her face and one at the sight of her insulin pump which required a couple of different antibiotics according to her. She gets her primary care at [facility]. She is a type I diabetic for 25 years and her last A1c a couple of weeks ago was 8.9 which is a big improvement from 12 that it was previously. She denies fevers, chills or sweats. No respiratory or cardiovascular symptoms. She has not seen a spike in her blood sugars and she denies any injuries or trauma to the area where she has the skin infection. She has no known drug allergies. OBJECTIVE: Blood pressure 114/80. Pulse 115. Temperature 97.7. Adult female alert and oriented, interactive in no acute distress. On her left lower back area at approximately the L1 dermatome there is a 10 cm area of induration that is quite tender inside of this 10 cm area of induration. There is erythema and warmth. There is no head, no open areas and no zone for drainage to be coming out of. There is no palpable fluctuance on this. ASSESSMENT: Cellulitis. PLAN: Reviewed this with patient that I&D would likely not get any results and so culture is not obtained at this point. I reviewed the case and plan with Dr. Hankins and will go ahead and start Augmentin one p.o. b.i.d. times 7 days and Bactrim 1 p.o. b.i.d. times 7 days. Continue with the ibuprofen 800 mg t.i.d. for pain. Also can use Tylenol for increased pain. She does complain mostly of worse pain at h.s. where she is waking up and crying and moaning in pain, so will give her Vicodin #10 pills to use at h.s. only and not with any other drugs except Tylenol. I also strongly encouraged her to be rechecked in the clinic in the next 2 to 3 days to insure that this is responding and improving, etc. return to sooner if she is spiking fevers or other concerns. She verbalized an understanding and agreement with plan. ERROL Weaver/sejal ER ENGINEER documented in this encounter Plan of Treatment Upcoming Encounters Date Type Specialty Care Team Description 04/04/2022 Office Visit insurance verification specialist Kaela Dubois APRN [facility] [address] [place] [address] (Wo rk) 04/23/2022 Virtual Visit Endocrinology Lottie Cedillo PA-C [address] [place] [address] (Wo rk) documented as of this encounter Visit Diagnoses Not on filedocumented in this encounter Care Teams Follow Up Rep Relationship Specialty Start Date End Date Real Herman MD PCP - General 08/29/06 07/21/12 documented as of this encounter
--- OUTSIDE RECORDS SUMMARY | 2022-02-19 14:31 | XMS_ITS | Encounter Summary ---
:1980 Author Organization [place] Address [address] [place] [address] Care Team Providers Name Role Phone Real Herman MD Primary Care Provider Reason for Referral Specialty Diagnoses / Procedures Referred By Contact Refer red To Contact Rissa [place] [address] Referral ID Status Reason Start Date Expiration Date Visits Requ ested Visits Authorized Reason for Visit Reason Comments Derm Problem Encounter Details Date Type Department Care Team Description 01/30/2007 Office Visit [facility] Rissa Tellez, ACNE NEC; System in [place] Lopez MD NONSPECIF SKIN ERUPT NEC; OIL REFINERY OPERATOR XXX 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 XXX SEBACEOUS CYST; [address] [place] [address] SKIN DISORDER NOS; CHEYENNE Alvarenga [phone] CELLULITIS NOS [id number] (Work) [phone] Social History Tobacco Use Types Packs/Day Years [...] Date Recorded Female 05/08/2020 12:57 PM SENIOR STAFF CONSULTANT documented as of this encounter Last Filed Vital Signs Vital Sign Reading Time Taken Comments Blood Pressure 120/70 01/30/2007 9:00 AM CDT Pulse 96 01/30/2007 9:00 AM CDT Temperature - - Respiratory Rate - - Oxygen Saturation - - Inhaled Oxygen Concentration - - Weight 73.5 kg (162 lb) 01/30/2007 9:00 AM CDT Height - - Body Mass Index 29.63 08/29/2006 8:00 AM CDT documented in this encounter Progress Notes Mariela Hall - 12/07/2009 10:46 PM CDT Has a ? Ingrown hair in pubic area, also would like a referrel to SARAH varma Rissa Tellez MD - 01/30/2007 10:41 AM CDT Ms. Méndez is here because of a lesion on her mons. she would like to have this treated/removed. She is a 26 year old, Obstetric History The patient has not been asked about . , using condoms for contraception. HPI:She noted an ingrown hair a few days ago. It has gotten bigger and she tried to pop it but is is larger and more sore. She has trouble with her skin in general and any pimple gets infected - she would like to see a die finisher. 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 DIABETES MELLITUS TYPE I-UNCOMPL Past Surgical History Procedure Date ??? Oral surgery procedure Current Outpatient Rx Name Route Sig Dispense Refill ??? HUMALOG 100 UNIT/ML SC SOLN Subcutaneous None Entered ??? LANTUS 100 UNIT/ML SC SOLN Subcutaneous None Entered ??? CLARITIN OR Oral 1 prn ??? KEFLEX 500 MG OR CAPS Oral 1 tablet 3 times daily x 10 days 30 0 Allergies: Review of patient's allergies indicates no known allergies. History Social History ??? Marital Status: N/A Spouse Name: N/A Number of Children: N/A ??? Years of Education: N/A Occupational History ??? Not on file. Social History Main Topics ??? Tobacco Use: Never ??? Alcohol Use: Yes ??? Drug Use: Not on file ??? Sexually Active: Yes Control/ Protection: Condom Other Topics Concern ??? Not on file Social History Narrative ??? No narrative on file Regional Sales Associate Exam: Lymph: no enlarged groin nodes External genitlaia: normal development, normal BUS, no lesions Perineum: normal skin, no lesions, good support There is an erythematous area on radha right side of the mons with extetion toward the injuinal area. There is a fluculent area noted. Assessment: foliculitis with secondary cellulitis Plan: will I&D and treat with Abx. Will get her a derm consult. Procedure: Pause for the cause completed. Rissa Tellez The area was prepped with betadine and draped. 2-3 cc of 1% lidocaine was injected. An 11 blade was used to open the area and mod pus was drained. no cultures were sent. a dressing was placed and the Pt tolerated the procedure well. She will return for an annual exam some time. documented in this encounter Plan of Treatment Upcoming Encounters Date Type Specialty Care Team Description 04/04/2022 Office Visit machine packaging technician Kaela Dubois [facility]N [facility] [address] [place] [address] (Maryjane pa) 04/23/2022 Virtual Visit Endocrinology Lottie Cedillo , PANael [address] [place] [address] (Wo rk) Pending Results Name Type Priority Associated Diagnoses Date/Ti me CONSULT TO DERMATOLOGY Referral Routine Nonspecif Skin Erupt Nec 01/30/2007 Acne Nec documented as of this encounter Procedures Procedure Name Priority Date/Time Associated Diagnosis Comme nts HC DRAIN SKIN ABSCESS Routine 01/30/2007 9:40 AM Skin Di sorder Nos SIMPLE/SINGLE CDT Sebaceous Cyst ADULT DERMATOLOGY Routine 01/30/2007 Nonspecif Skin Erupt REFERRAL Nec Acne Nec documented in this encounter Visit Diagnoses Diagnosis Other acne Rash and other nonspecific skin eruption Sebaceous cyst Unspecified disorder of skin and subcuta neous tissue Cellulitis and abscess of unspecified si te documented in this encounter Care Teams Drugless Physician Relationship Specialty Start Date End Date Real Herman MD PCP - General 08/29/06 07/21/12 documented as of this encounter
--- OUTSIDE RECORDS SUMMARY | 2022-02-19 14:31 | XMS_ITS | Encounter Summary ---
:1980 Author Organization [facility] Address [address] [place] [address] Care Team Providers Name Role Phone Real Herman MD Primary Care Provider Reason for Visit Reason Comments Dot Physical [place] Encounter Details Date Type Department Care Team Description 09/18/2009 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 documented as of this encounter Last Filed Vital Signs Vital Sign Reading Time Taken Comments Blood Pressure 138/60 09/18/2009 1:51 PM CDT Pulse 88 09/18/2009 1:51 PM CDT Temperature - - Respiratory Rate 16 09/18/2009 1:51 PM CDT Oxygen Saturation - - Inhaled Oxygen Concentration - - Weight 85.7 kg (189 lb) 09/18/2009 1:51 PM CDT Height 158.1 cm (5' 2.25) 09/18/2009 1:51 PM CDT Body Mass Index 34.29 09/18/2009 1:51 PM CDT documented in this encounter Patient Instructions Patient InstructionsDevorah Martinez PA-C - 09/18/2009 2:06 PM CDT BMI: <33 or sleep study needed In general, insulin precluded DOT license (waiver form) documented in this encounter Progress Notes Devorah Martinez PA-C - 09/18/2009 1:58 PM CDT Tamiko Arreguin doesn't meet criteria for DOT license is diabetic and on insulin, also Body mass index is 34.29 kg/(m^2). would mandate sleep study test prior to DOT clearance. Did discuss there is a waiver for insulin dependent diabetics to drive, but requires ophthamology visit/letter and letter by her diabetic care provider and strict monitoring of blood sugars. Today glucosuria. BS 300 today, normally less than 200s. She sees diabetic provider in [place] and will set up f/u appt. WIll be on [place] [facility] soon. Will not perform physical today. She does not need DOT licensure for her job, was just suggested. She will call us back if she desires physical and the appropriate waiver paperwork. documented in this encounter Plan of Treatment Upcoming Encounters Date Type Specialty Care Team Description 04/04/2022 Office Visit business administration program chair Kaela Dubois APRN METALS SALES REPRESENTATIVE [facility] [address] [place] [address] (Wo rk) 04/23/2022 Virtual Visit Endocrinology Lottie Cedillo PA-C [address] [place] [address] (Wo rk) documented as of this encounter Procedures Procedure Name Priority Date/Time Associated Diagnosis Comme nts ZZC TITMUS VISION Routine 09/18/2009 1:25 PM Health Examinatio n of SCREENING CDT Defined Subpopulation ZZCL AFF UROGRAM Routine 09/18/2009 Health Examination of Re sults for this (DIP) Defined Subpopulation proced ure are in the results section. documented in this encounter Results (ABNORMAL) UROGRAM (DIP) (09/18/2009) P athologist Signature Color Urine [facility] Appearance Urine [facility] Specific [place] 1.010 1.005 - [facility] Urine 1.030 [facility] pH Arterial 5 - 9 [facility] Albumin Urine neg neg - neg [facility] mg/dL [facility] Glucose Urine 2000 neg - neg [facility] mg/dL [facility] Ketones Urine mg/dL [facility] Blood Urine neg [facility] Bilirubin Urine [facility] Urobilinogen 0.2 - 1.0 [facility] Urine EU/dL [facility] Nitrite Urine [facility] Leukocyte [facility] Esterase Urine [facility] Devorah Martinez PA-C LABORATORY Performing Organization Address City/State/ZIP Code Phon e Number [facility] [address] documented in this encounter Visit Diagnoses Diagnosis Health examination of defined subpopulat ion - Primary Diabetes Type II or unspecified type diabetes katherine litus without mention of complication, not stated as uncontrolled documented in this encounter Care Teams Pain Medicine Physician Relationship Specialty Start Date End Date Real Herman MD PCP - General 08/29/06 07/21/12 documented as of this encounter
--- OUTSIDE RECORDS SUMMARY | 2022-02-19 14:31 | XMS_ITS | Encounter Summary ---
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 [address] [place] [phone] [phone] [place], [place] [id number] (Wo rk) Social History Tobacco Use Types Packs/Day Years Used Date Smoking Tobacco: Never Assessed Intimate Partner Violence Answer Date Recorded Within [...] at Date Recorded 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 She said the pain started in this wisdom tooth about 5 days ago. She went to see her dentist on Friday, three days ago. He did an x-ray and stated that there was a bad cavity but no infection and she would need to have the wisdom tooth removed. This has been set up for August 20 but now over the course of the weekend she???s had increasing pain in that left lower gum area, a lot of pressure and pain. She has been using aspirin, ibuprofen and Tylenol with no effect on the pain and she is desperate for something for pain. PAST MEDICAL HISTORY: Type I diabetes. OBJECTIVE: VITAL SIGNS: See Epic. GENERAL: The patient is alert but in obvious discomfort. MOUTH: Her mouth is inspected in the left lower gum the back molar there is an obvious cavity in thecenter. The gum itself is not inflamed. There is no discharge noted. ASSESSMENT: Cavity, wisdom tooth left lower gum. PLAN: Recommend getting in with her dentist as soon as possible to have this evaluated. It does not appearto be infected, reassured. We will treat the pain with ibuprofen 800 milligrams three times a day and Vicodin 5/500, #30, 1 to 2 every 3 to 4 hours as needed for pain. Again follow up with dentist. JOE Wheeler/jade documented in this encounter Plan of Treatment Upcoming Encounters Date Type Specialty Care Team Description 04/04/2022 Office Visit shagger Kaela Dubois APRN [facility] [address] [place] [address] (Wo rk) 04/23/2022 Virtual Visit Endocrinology Lottie Cedillo PA-C [address] [place], [place] [phone] (Wo rk) documented as of this encounter Visit Diagnoses Not on filedocumented in this encounter
--- OUTSIDE RECORDS SUMMARY | 2022-02-19 14:31 | XMS_ITS | Encounter Summary ---
:1980 Author Organization [place] Address [facility] [place] [address] Care Team Providers Name Role Phone Nelda Peña APRN, CNP Primary Care Provider Reason for Referral Consultation - Closed Specialty Diagnoses / Procedures Referred By Contact Refer red To Contact Diagnoses Acne, unspecified acne type Nelda Peña APRN CNP [address] [facility] [address] [place], [place] [address] Referral ID Status Reason Start Date Expiration Date Visits Requ ested Visits Authorized [id number] Closed 02/17/2018 02/17/2019 1 1 SLAND CONSERVATIONIST Vision Services - Closed Specialty Diagnoses / Procedures Referred By Contact Refer red To Contact Diagnoses Uncontrolled type 1 diabetes mellitus with hyperglycemia (H) Nelda Peña APRN CNP [address] [facility] [address] [place], [place] [address] 5 Referral ID Status Reason Start Date Expiration Date Visits Requ ested Visits Authorized [id number] Closed 02/17/2018 02/17/2019 1 1 SLAND CONSERVATIONIST Mental Health Outpatient - Closed Specialty Diagnoses / Procedures Referred By Contact Refer red To Contact Psychology Diagnoses Episode of recurrent major depressive disorder, unspecified depression episode severity (H) Nelda Peña APRN CAN SOLDERER [address] [facility] [address] [place] [address] 5 Referral ID Status Reason Start Date Expiration Date Visits Requ ested Visits Authorized [id number] Closed 02/17/2018 02/17/2019 1 1 SLAND CONSERVATIONIST Consultation - Closed Specialty Diagnoses / Procedures Referred By Contact Refer red To Contact Diagnoses Uncontrolled type 1 diabetes mellitus with hyperglycemia (H) Nelda Peña APRN CAN SOLDERER [address] [place] [id number] [phone] Referral ID Status Reason Start Date Expiration Date Visits Requ ested Visits Authorized [id number] Closed 02/17/2018 02/17/2019 1 1 SLAND CONSERVATIONIST Clinically Administered Medications - Closed Specialty Diagnoses / Procedures Referred By Contact Refer red To Contact Diagnoses Screening for diabetic retinopathy Nelda Peña APRN Procedures PNEUMOCOCCAL VACCINE,ADULT,SQ OR IM CAN SOLDERER [address] [place] [id number] 5 Referral ID Status Reason Start Date Expiration Date Visits Requ ested Visits Authorized [id number] Closed 02/17/2018 02/17/2019 1 1 SLAND CONSERVATIONIST THERMODYNAMICS ENGINEER - Closed Specialty Diagnoses / Procedures Referred By Contact Refer red To Contact Diagnoses Screening for diabetic retinopathy Nelda Peña APRN CAN SOLDERER [address] [address] 5 Referral ID Status Reason Start Date Expiration Date Visits Requ ested Visits Authorized [id number] Closed 02/17/2018 02/17/2019 1 1 SLAND CONSERVATIONIST Reason for Visit Reason Comments Establish Care establish care/provider Hospital F/U 01/31/18 major depression, an xiety Diabetes Hx of diabetes Encounter Details Date Type Department Care Team Description 02/17/2018 [facility] Nelda [facility] for diabetic retinopathy (Primary Dx); [facility] Uncontrolled type 1 diabetes mellitus wi th hyperglycemia (H); 9 [facility] [address] [facility] Episode of recurrent major d epressive disorder, unspecified depression episode severity (H); 4th Floor [facility] 741 Screening for thyroid disorder; [place], [place] Acne, uns pecified acne type; [id number] Encounter for immunization [phone] Social History Tobacco Use Types Packs/Day Years [...] at Date Recorded Female 05/08/2020 12:57 PM GRASSLAND CONSERVATIONIST documented as of this encounter Last Filed Vital Signs Vital Sign Reading Time Taken Comments Blood Pressure 129/75 02/17/2018 2:08 PM GRASSLAND CONSERVATIONIST Pulse 108 02/17/2018 2:08 PM GRASSLAND CONSERVATIONIST Temperature - - Respiratory Rate 20 02/17/2018 2:08 PM GRASSLAND CONSERVATIONIST Oxygen Saturation 96% 02/17/2018 2:08 PM GRASSLAND CONSERVATIONIST Inhaled Oxygen - - Concentration Weight 106.1 kg (233 lb 02/17/2018 2:08 PM wearing clot hes and 12.8 oz) GRASSLAND CONSERVATIONIST shoes Height - - Body Mass Index 42.42 09/18/2009 1:51 PM CDT documented in this encounter Patient Instructions Patient InstructionsLucasDioneClari, LPN - 02/17/2018 2:15 PM CST [facility] Medication Refill Request Information: * Please contact your pharmacy regarding ANY request for medication refills. [facility] Prescription Fax = [phone] * Please allow 3 business days for routine medication refills. * Please allow 5 business days for controlled substance medication refills. [facility] Test Result notification information: *You will be notified with in 7-10 days of your appointment day regarding the results of your test. If you are on MyChart you will be notified as soon as the provider has reviewed the results and signed off on them. [facility] Care Center: [phone] Health Psychology (Dr. Faisal Cortés) [phone] ([facility], 3rd Floor S, D&T) Health Psychology (Dr. Mimi Tobin) [phone] Health Psychology (Dr. Lucia Nicholas) [phone] Health Psychology (Dr. Nathalia Payne) [phone] Health Psychology (Dr. Loida Domingo) [phone] DERMATOLOGY CLINIC Floor 3 Appointments: [phone] SLAND CONSERVATIONIST documented in this encounter Progress Notes Nelda Peña APRN CNP - 02/17/2018 2:15 PM CST [facility] [place] Nelda Peña APRN CAN SOLDERER 02/17/2018 Chief Complaint: Establish Care History of Present Illness: Tamiko Méndez is a 37 year old female with a history of type 1 diabetes, adenomyosis, and depression who presents for establishment of care. The patient reported to [facility] ED in [place], [place] on 01/31 for evaluation of depression. She was taking 40 mg Celexa daily at that time. She reported that she felt like her depression symptoms worsened significantly since she received a depo shot in November. She had some suicidal ideation at that time without a plan. She had an argument with her mother and made comments about feeling worthless and her mother convinced her to go to the ER. She was not believed to require inpatient psychiatric care at that time. She was instructed to switch from Celexa to Effexor and discharged with instructions to return if symptoms worsened.The plan was to continue the Depo. Today the patient reports that she is worried about switching to Effexor without another opinion. The patient is wondering if this switch is necessary since Celexa has worked well for her until the depo injection. She also started a new job recently and is having some financial issues, which she states could also be the cause of her worsening depression symptoms. The patient was for almost 8 years in the past and it did not go well and they . She reports that this is affecting her current 2 year relationship. She also has low self- esteem and flashes of anger. For these reasons, she is very interested in seeing a psychiatrist or psychologist. She states she is happy in her current re lationship and states that her current partner is very understanding. Other concerns discussed: The patient had a Mirena IUD in the past and it came out with her period. She told her OB-ARCHITECTURE TECHNICIAN at this time that she has to bear down like she is giving during her menstrual cramps and passes clots the size of her fingers or palms. She received a ultrasound and was diagnosed with adenomyosis. [facility] and the doctors chose Depo to reduce the pain and frequency associated with her adenomyosis. SHe was told to avoid estrogen due to her long hx of uncontrolled T1DM and likely damaged blood vessels. Her next Depo injection is scheduled for March 11. She tried a Desogen pill for 9 months, which she reports worked well until she was switched to a generic brand and had her period for 1.5 months continuously. She does not desire . Her last pap was last year and it was normal. She also endorses significant PMS symptoms around the time ofher period. She occasionally will have suicidal thoughts around this time. The patient was diagnosed with type 1 diabetes in October of 1981. Her last A1c was 10.9. She reportsthat she had a snack the other day that consisted of 2 servings of carbohydrates. Her blood sugar was 200 before the snack and she injected 7 units of Novolog. She checked her blood sugar 2 hours laterand it was over 350. Her sensation in her feet is still present. She is open to trying a CGM and/or starting Metformin. She has tried an insulin pump in the past and the tape pulled off her skin. She reports she had a UTI one month ago and treated it with over the counter medication and pushed fluids.She endorses frequent UTI's when her blood sugars are elevated. She would like a referral to an endoc rinologist. She is currently due for an eye exam and would like to get established here. She also has not seen a dentist in 2 years and just got dental insurance. She has not had cholesterol testing in2 years. The patient endorses a lingering cold for the last couple weeks and persistently large tonsils throughout her life. The patient endorses cystic acne on her face and the back of her neck. She would like to see a senior compensation consultant for this. Review of Systems: Pertinent items are noted in HPI or as in patient entered ROS below, remainder of complete ROS is negative. Active Medications: ??? CLARITIN 10 MG OR TABS, 1 tab daily, Disp: 30, Rfl: 5 ??? LORazepam (ATIVAN) 0.5 MG tablet, Take 0.5 mg by mouth 2 times daily as needed, Disp: , Rfl: ??? cetirizine (ZYRTEC) 10 MG tablet, Take 10 mg by mouth daily, Disp: , Rfl: ??? citalopram (CELEXA) 40 MG tablet, Take 40 mg by mouth daily, Disp: , Rfl: ??? insulin NPH (HUMULIN N/NOVOLIN N) 100 UNIT/ML injection, Inject 100 Units Subcutaneous 2 times daily, Disp: , Rfl: ??? insulin regular (HUMULIN R/NOVOLIN R) 100 UNIT/ML injection, Inject 100 mLs Subcutaneous Takes 3-4 times a day with food.Clari Zavala LPN 2:16 PM on 02/17/2018, Disp: , Rfl: ??? medroxyPROGESTERone Acetate (DEPO-SUBQ PROVERA) 104 MG/0.65ML injection, Inject 104 mg Subcutaneous Takes 4 times a year.Clari Zavala LPN 2:17 PM on 02/17/2018, Disp: , Rfl: Allergies: Hay fever & [a.r.m.] Past Medical History: Diabetes mellitus, type 1, without complication Asthma Depression Allergies Acne Past Surgical History: Oral surgery procedure, wisdom tooth abstraction Left eye diabetic retinopathy laser surgery Therapeutic Family History: Mother - Osteoarthritis, spinal stenosis, depression, anxiety, allergies Father - Hypertension Cousin - Ulcerative colitis Maternal grandfather - Spinal stenosis, type 2 diabetes, kidney disease Paternal grandmother - Type 2 diabetes Sister - Allergies The patient has one sister and two half-brothers. Social History: Marital Status: Single Presents to the clinic alone. Tobacco Use: Never smoker Alcohol Use: Yes Physical Exam: BP 129/75 (BP Location: Right arm, Patient Position: Sitting, Cuff Size: Adult Regular) Pulse 108 Resp 20 Wt 106.1 kg (233 lb 12.8 oz) SpO2 96% ? No BMI 42.42 kg/m2 Wt Readings from Last 1 Encounters: 02/17/18 106.1 kg (233 lb 12.8 oz) Constitutional: no distress, comfortable, pleasant Eyes: anicteric, conjunctiva pink, normal extra-ocular movements. PERRLA Ears, Nose and Throat: tympanic membranes clear, throat clear with enlarged tonsils. Neck: supple with full range of motion, no thyromegaly. Breasts: normal without suspicious masses, skin changes or axillary nodes, symmetric fibrous changesin both upper outer quadrants Cardiovascular: regular rate and rhythm, normal S1 and S2, no murmurs, rubs or gallops, peripheral pulses full and symmetric Respiratory: clear to auscultation, no wheezes or crackles, normal breath sounds Gastrointestinal: positive bowel sounds, nontender, no hepatosplenomegaly, no masses Musculoskeletal: full range of motion, no edema Skin: acne lesions on face, hairline, chest and back. Breasts: no masses. Pendulous. Foot exam: Normal 2+ pedal pulses, good cap refill, no toenail changes or ulcerations, sensation intact to monofilament bilaterally Neurological: normal speech, no tremor. A and O x 3, good historian. Psychological: appropriate mood, good eye contact, normal affect. Lymph: no axillary, cervical, supraclavicular, infraclavicular nodes. Assessment and Plan: Uncontrolled type 1 diabetes mellitus with hyperglycemia (H) - New patient with a longstanding history of uncontrolled type 1 diabetes. Ordered labs today. She will return when fasting. She has severalconcerns regarding her insulin regimen and a referral to endocrinology was placed. She was also referred to opthalmology for an updated diabetic eye exam. - ENDOCRINOLOGY ADULT REFERRAL - OPHTHALMOLOGY ADULT REFERRAL - Comprehensive metabolic panel - Hemoglobin A1c - CBC with platelets - Albumin Random Urine Quantitative with Creat Ratio Screening for diabetic retinopathy - See above. - Lipid panel reflex to direct LDL Fasting - THERMODYNAMICS ENGINEER REFERRAL for options for treatment of adenomyosis and contraception. - HC FLU VACCINE, INCREASED ANTIGEN, PRESV FREE - PNEUMOCOCCAL VACCINE,ADULT,SQ OR IM - Consider future ACEI and TdaP Episode of recurrent major depressive disorder, unspecified depression episode severity (H) - The patient is currently taking Celexa 40 mg daily. Reviewed her recent ED visit and instructed to continueCelexa for now as she states the medication works well for her. Will have patient meet with gynecology before her next depo injection to discuss control options moving forward given her co morbidities. Also referred to psychology. - PSYCHOLOGY REFERRAL Screening for thyroid disorder - TSH Acne, unspecified acne type - DERMATOLOGY REFERRAL for acne concerns. Follow-up: Return in about 3 months (around 05/20/2018). Scribe Disclosure: ILoida, am serving as a scribe to document services personally performed by Nelda Peña APRN CNP at this visit, based upon the provider's statements to me. All documentation has been reviewed by the aforementioned provider prior to being entered into the official medical record. Portions of this medical record were completed by a scribe. UPON MY REVIEW AND AUTHENTICATION BY ELECTRONIC SIGNATURE, this confirms (a) I performed the applicable clinical services, and (b) the recordis accurate. Answers for HPI/ROS submitted by the patient on 02/17/2018 General Symptoms: No Skin Symptoms: Yes HENT Symptoms: Yes EYE SYMPTOMS: No HEART SYMPTOMS: No LUNG SYMPTOMS: Yes INTESTINAL SYMPTOMS: No URINARY SYMPTOMS: No GYNECOLOGIC SYMPTOMS: No BREAST SYMPTOMS: No SKELETAL SYMPTOMS: No BLOOD SYMPTOMS: No NERVOUS SYSTEM SYMPTOMS: No MENTAL HEALTH SYMPTOMS: Yes Changes in hair: No Changes in moles/ yip: No Itching: Yes Rashes: No Changes in nails: No Acne: Yes Hair in places you don't want it: No Change in facial hair: No Warts: No Non-healing sores: No Scarring: No Flaking of skin: Yes Color changes of hands/feet in cold : No Sun sensitivity: No Skin thickening: No Ear pain: Yes Ear discharge: No Hearing loss: No Tinnitus: No Nosebleeds: No Congestion: Yes Sinus pain: Yes Trouble swallowing: Yes Voice hoarseness: No Mouth sores: No Sore throat: Yes Tooth pain: No Gum tenderness: No Bleeding gums: No Change in taste: No Change in sense of smell: No Dry mouth: No Hearing aid used: No Neck lump: No Cough: Yes Sputum or phlegm: Yes Coughing up blood: No Difficulty breathing or shortness of breath: Yes Snoring: Yes Wheezing: Yes Difficulty breathing on exertion: No Nighttime Cough: Yes Difficulty breathing when lying flat: No Nervous or Anxious: Yes Depression: Yes Trouble sleeping: No Trouble thinking or concentrating: Yes Mood changes: Yes Panic attacks: Yes PHQ-2 Score: 2 Total time spent 60 minutes. More than 50% of the time spent with Ms. Méndez on counseling / coordinating her care Nelda Peña APRN, JOE SLAND CONSERVATIONIST documented in this encounter Nursing Notes Clari Zavala LPN - 02/17/2018 2:15 PM CST Chief Complaint Patient presents with ??? Establish Care establish care/provider ??? Hospital F/U 01/31/18 major depression, anxiety ??? Diabetes Hx of diabetes Clari Zavala LPN 2:18 PM on 02/17/2018 Will need to get records of immunization from previous medical facilities. Does not know if and whenhad shots. .Clari Zavala LPN 2:21 PM on 02/17/2018 Has been screened for HIV and was negative.Clari Zavala LPN 2:22 PM on 02/17/2018 PHQ-9 and LUIS-7 given to patient to fill out.Clari Zavala LPN 2:23 PM on 02/17/2018 Rooming Note Health Maintenance Health Maintenance Due Topic Date Due ??? FOOT EXAM Q1 YEAR 1981 ??? EYE EXAM Q1 YEAR 1981 ??? TSH W/ FREE T4 REFLEX Q2 YEAR 1981 ??? LIPID MONITORING Q1 1981 ??? MICROALBUMIN Q1 YEAR 1981 ? ? PNEUMOVAX 1X HI RISK PATIENT < 65 (NO IB MSG) 1982 ??? TETANUS IMMUNIZATION (SYSTEM ASSIGNED) 1998 ??? A1C Q6 MO 02/28/2007 ??? CREATININE Q1 YEAR 08/30/2007 ??? INFLUENZA VACCINE (1) 11/29/2017 All health maintenance items discussed and pended. Clari Zavala LPN 2:25 PM on 02/17/2018 Will discuss immunizations with provider.Clari Zavala LPN 2:25 PM on 02/17/2018 SLAND CONSERVATIONIST Clari Zavala LPN - 02/17/2018 2:15 PM CST Tamiko Méndez 1. Has the patient received the information for the influenza vaccine? YES 2. Does the patient have any of the following contraindications? Allergy to eggs? No Allergic reaction to previous influenza vaccines? No Any other problems to previous influenza vaccines? No Paralyzed by Guillain-[place] syndrome? No Currently ? NO Current moderate or severe illness? No Allergy to contact lens solution? No 3. The vaccine has been administered in the usual fashion and the patient was instructed to wait 20 minutes before leaving the building in the event of an allergic reaction: YES Vaccination given by Clari Zavala LPN 4:21 PM on 02/17/2018. Recorded by Clari Zavala Flu and pneumonia 23 shot given without problems,patient tolerated procedure well.Clari Zavala LPN4:22 PM on 02/17/2018 SLAND CONSERVATIONIST documented in this encounter Plan of Treatment Upcoming Encounters Date Type Specialty Care Team Description 04/04/2022 Office Visit advanced manufacturing technician Kaela Dubois [facility]N [facility] [address] [place] [address] (Wo thierno) 04/23/2022 Virtual Visit Endocrinology Lottie Cedillo PA-C [address] [place] [address] (Maryjane pa) Scheduled Referrals Name Type Priority Associated Diagnoses Order S chedule THERMODYNAMICS ENGINEER REFERRAL Referral Routine Screening for diabetic Or dered: 02/17/2018 retinopathy ENDOCRINOLOGY ADULT Referral Routine Uncontrolled type 1 O rdered: 02/17/2018 REFERRAL diabetes mellitus with hyperglycemia (H) PSYCHOLOGY REFERRAL Referral Routine Episode of recurrent Ordered: 02/17/2018 major depressive disorder, unspecified depression episode severity (H) OPHTHALMOLOGY ADULT Referral Routine Uncontrolled type 1 O rdered: 02/17/2018 REFERRAL diabetes mellitus with hyperglycemia (H) DERMATOLOGY REFERRAL Referral Routine Acne, unspecified ac ne Ordered: 02/17/2018 type documented as of this encounter Results Albumin Random Urine Quantitative with Creat Ratio (03/21/2018 8:45 AM GRASSLAND CONSERVATIONIST) athologist Signature Creatinine 154 mg/dL 03/21/2018 MICHA[facility] Urine 2:20 PM [facility] Albumin Urine 34 mg/L 03/21/2018 MICHAEL mg/L 2:20 PM [facility] Albumin Urine 21.95 0 - 25 03/21/2018 MICHAEL mg/g Cr mg/g Cr 2:20 PM [facility] Specimen Anatomical Collection Method Collection Time Receive d Time (Source) Location / / Volume Laterality Urine specimen 03/21/2018 8:45 AM 018 8:46 (specimen) [employer]AND CONSERVATIONIST AM GRASSLAND CONSERVATIONIST Nelda Peña APRN CAN SOLDERER LAB - URINE ORDERABLES Performing Organization Address City/State/ZIP Code Phon e Number [facility] [address] [place] [address] (ABNORMAL) CBC with platelets (03/21/2018 8:44 AM GRASSLAND CONSERVATIONIST) athologist Signature WBC 6.8 4.0 - 11.0 03/21/2018 [place]HAEL 10e9/L 9:05 AM GRASSLAND CONSERVATIONIST [facility] RBC Count 4.48 3.8 - 5.2 03/21/2018 [place] 10e12/L 9:05 AM GRASSLAND CONSERVATIONIST [facility] Hemoglobin 11.8 11.7 - 15.7 03/21/2018 [place] g/dL 9:05 AM [facility] Hematocrit 37.2 35.0 - 47.0 03/21/2018 [facility] % 9:05 AM [facility] MCV 83 78 - 100 fl 03/21/2018 [facility] 9:05 AM [facility] MCH 26.3 (L) 26.5 - 33.0 03/21/2018 [place] pg 9:05 AM [facility] Comment: Results confirmed by repeat chaz t MCHC 31.7 31.5 - 36.5 g/dL 03/21/2018 9:05 AM GRASSLAND CONSERVATIONIST [facility] RDW 14.7 10.0 - 15.0 % 03/21/2018 9:05 AM GRASSLAND CONSERVATIONIST [facility] Platelet Count 247 150 - 450 10e9/L 03/21/2018 9:05 AM GRASSLAND CONSERVATIONIST [facility] Specimen Anatomical Collection Method Collection Time Receive d Time (Source) Location / / Volume Laterality Blood specimen 03/21/2018 8:44 AM 018 8:45 (specimen) GRASSLAND CONSERVATIONIST AM GR[employer]SLAND CONSERVATIONIST Nelda Peña APRN, CNP LAB - BLOOD ORDERABLES Performing Organization Address [facility] Phon e Number [facility] [address] [place] [address] (ABNORMAL) Hemoglobin A1c (03/21/2018 8:44 AM GRASSLAND CONSERVATIONIST) Analysis Performed At Patho logist Time Signature Hemoglobin A1C 11.5 (H) 0 - 5.6 % 03/21/2018 [place] 9:14 AM [facility] Comment: Results confirmed by repeat test Normal <5.7% Prediabetes 5.7-6.4% ??Diab etes 6.5% or higher - adopted from ADA consensus guidelines. Specimen Anatomical Collection Method Collection Time Receive d Time (Source) Location / / Volume Laterality Blood specimen 03/21/2018 8:44 AM 018 8:45 (specimen) GRASSLAND CONSERVATIONIST AM GRASSLAND CONSERVATIONIST Nelda Peña APRN, CNP LAB - BLOOD ORDERABLES Performing Organization Address [facility] Phon e Number [facility] [address] [place] [address] (ABNORMAL) Comprehensive metabolic panel (03/21/2018 8:44 AM GRASSLAND CONSERVATIONIST) Analysis Performed At Patho logist Time Signature Sodium 136 133 - 144 03/21/2018 [place] mmol/L 2:07 PM [facility] Potassium 4.2 3.4 - 5.3 03/21/2018 [place] mmol/L 2:07 PM [facility] Chloride 104 94 - 109 03/21/2018 [place] mmol/L 2:07 PM [facility] Carbon Dioxide 26 20 - 32 03/21/2018 [place] mmol/L 2:07 PM [facility] Anion Gap 6 3 - 14 03/21/2018 [place] mmol/L 2:07 PM [facility] Glucose 257 (H) 70 - 99 03/21/2018 [place] mg/dL 2:07 PM [facility] Comment: Fasting specimen Urea Nitrogen 14 7 - 30 mg/dL 03/21/2018 2:07 PM [facility] Creatinine 0.76 0.52 - 1.04 mg/dL 03/21/2018 2:[address] [facility] GFR Estimate >90 >60 03/21/2018 2:07 PM [facility] mL/min/{1.73_m2} [place] Comment: Non GFR Calc Starting 03/17/2018, serum creatinine ba sed estimated GFR (eGFR) will be calculated using the Chronic Kidney Dise [facility] Epidemiology Collaboration (CKD-EPI) equation. GFR Estimate If >90 >60 mL/min/{1.73_m2} 03/21/2018 2: 07 PM [facility] Comment: GFR Calc Starting 03/17/2018, serum creatinine ba sed estimated GFR (eGFR) will be calculated using the Chronic Kidney Dise [facility] Epidemiology Collaboration (CKD-EPI) equation. Calcium 8.9 8.5 - 10.1 03/21/2018 2:07 PM [place] mg/dL [facility] Bilirubin Total 0.6 0.2 - 1.3 mg/dL 03/21/2018 2:07 PM [facility] Albumin 3.4 3.4 - 5.0 g/dL 03/21/2018 2:[address] [facility] Protein Total 6.9 6.8 - 8.8 g/dL 03/21/2018 2:07 PM [facility] Alkaline Phosphatase 80 40 - 150 U/L 03/21/2018 2:07 PM [facility] ALT 15 0 - 50 U/L 03/21/2018 2:07 PM [facility] AST 11 0 - 45 U/L 03/21/2018 2:07 PM [facility] Specimen Anatomical Collection Method Collection Time Receive d Time (Source) Location / / Volume Laterality Blood specimen 03/21/2018 8:44 AM 018 8:45 (specimen) GRASSLAND CONSERVATIONIST AM GRASSLAND CONSERVATIONIST Nelda Roy Casey SQUIRES CAN SOLDERER LAB - BLOOD ORDERABLES Performing Organization Address City/[facility]/ZIP Code Phon e Number [facility] [address] [address] TSH (03/21/2018 8:44 AM GRASSLAND CONSERVATIONIST) athologist Signature TSH 1.59 0.40 - 4.00 03/21/2018 [facility] mU/L 2:07 PM [facility] Specimen Anatomical Collection Method Collection Time Receive d Time (Source) Location / / Volume Laterality Blood specimen 03/21/2018 8:44 AM 018 8:45 (specimen) GRASSLAND CONSERVATIONIST AM GRASSLAND CONSERVATIONIST Nelda Roy Casey SQUIRES CAN SOLDERER LAB - BLOOD ORDERABLES Performing Organization Address City/[facility]/ZIP Code Phon e Number [facility] [address] [address] Lipid panel reflex to direct LDL Fasting (03/21/2018 8:44 AM GRASSLAND CONSERVATIONIST) P athologist Signature Cholesterol 176 <200 mg/dL 03/21/2018 [facility] 2:07 PM [facility] Triglycerides 96 <150 mg/dL 03/21/2018 [facility] 2:07 PM [facility] Comment: Fasting specimen HDL Cholesterol 66 >49 mg/dL 03/21/2018 2:07 PM GRASSLAND CONSERVATIONIST [facility] LDL Cholesterol 91 <100 mg/dL 03/21/2018 2:07 PM GRASSLAND CONSERVATIONIST [facility] Comment: Desirable: <100 mg/dl Non HDL Cholesterol 110 <130 mg/dL 03/21/2018 2:[address] [facility] Specimen Anatomical Collection Method Collection Time Receive d Time (Source) Location / / Volume Laterality Blood specimen 03/21/2018 8:44 AM 018 8:45 (specimen) GRASSLAND CONSERVATIONIST AM GRASSLAND CONSERVATIONIST Nelda Peña APRN, CNP LAB - BLOOD ORDERABLES Performing Organization Address City/State/ZIP Code Phon e Number [facility] [address] [place] [address] documented in this encounter Visit Diagnoses Diagnosis Screening for diabetic retinopathy - [facility] Screening for other eye conditions Uncontrolled type 1 diabetes mellitus wi th hyperglycemia (H) 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, unspecified depression episode severity (H) Screening for thyroid disorder Acne, unspecified acne type Encounter for immunization Need for other specified prophylactic va ccination against single bacterial disease documented in this encounter Additional Health Concerns Assessment Noted Time PHQ-9 Depression Total Score: 5 02/17/2018 3:24 PM GRASSLAND CONSERVATIONIST documented as of this encounter Care Teams Philanthropy Officer Relationship Specialty Start Date End Date Nelda Peña APRN CNP PCP - General Nurse Practitioner 02/02/18 [address] [facility] [address] [place] [address] documented as of this encounter
--- OUTSIDE RECORDS SUMMARY | 2022-02-19 14:31 | XMS_ITS | Encounter Summary ---
:1980 Author Organization [place] Address [facility] [address] [place] [address] Care Team Providers Name Role Phone Unavailable Primary Care Provider Unavailable Reason for Visit Reason Comments Drug Screen [place] Encounter Details Date Type Department Care Team Description 08/05/2006 Office Visit [facility] Health Nurse, [place] Occ HEALTH EXAM-[facility] System in [place] [facility] SURVEY (Primary Dx) Occupational Medicin e [address] [employer] [place] [address] [address] [place] [address] Social History Tobacco Use Types Packs/Day Years [...] Date Recorded Female 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 Valid specimen obtained. uneventful collection. >> SONIA WOODRUFF 08/05/2006 12:29 pm Pre employment uds for hema. Unable to void >> BROOKE ALONZO 08/05/2006 12:02 pm pre employment UDS for [place] could not give specimin. documented in this encounter Plan of Treatment Upcoming Encounters Date Type Specialty Care Team Description 04/04/2022 Office Visit hat binder Kaela Dubois [facility]N [facility] [address] [place], [place] [address] (Wo rk) 04/23/2022 Virtual Visit Endocrinology Lottie Cedillo , PAFacundoC [address] [place], [place] [address] (Wo rk) documented as of this encounter Visit Diagnoses Diagnosis Health examination of defined subpopulat ion - Primary documented in this encounter
--- OUTSIDE RECORDS SUMMARY | 2022-02-19 14:31 | XMS_ITS | Encounter Summary ---
:1980 Author Organization [place] Address [address] [facility] [place] [address] Care Team Providers Name Role Phone Real Herman MD Primary Care Provider Reason for Visit Reason Comments Pain right side, lower back, vomi ting, x3 days, no injury. 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 documented as of this encounter Last Filed Vital Signs Vital Sign Reading Time Taken Comments Blood Pressure 110/70 08/29/2006 8:00 AM CDT Pulse 80 08/29/2006 8:00 AM CDT Temperature 37.5 ??C (99.5 ??F) 08/29/2006 8:00 AM CDT Respiratory Rate - - Oxygen Saturation - - Inhaled Oxygen Concentration - - Weight 72.4 kg (159 lb 9.6 oz) 08/29/2006 8:00 AM CDT Height 157.5 cm (5' 2) 08/29/2006 8:00 AM CDT Body Mass Index 29.19 08/29/2006 8:00 AM CDT documented in this encounter Progress Notes Real Herman MD - 08/29/2006 8:42 AM CDT Subjective: Tamiko Méndez a 25 year old female who presents with: DIABETES:The patient has a history of diabetes mellitus of moderate severity and long standing duration with no acute modifying factors. No polyuria, polydipsia, blurry vision, chest pain, dyspnea, dysesthesia or claudication. Follows diet as prescribed, performs home glucose monitoring regularly. Patient reports blood sugars have been ranging between 180 and 240. Other than as mentioned elsewhere review of medications reveals no problems with compliance or side effects. The patient reports she gets[place] diabetic care in [place] as she has been seeing the same doctor for years and dose not want to switch. HYPERLIPIDEMIA:The patient has a history of hyperlipidemia of moderate severity and long standing duration. Patient has attempted cholesterol lowering measures in her diet. The patient is not presentlyon cholesterol lowering medications. Last cholesterol tests. Other than as mentioned elsewhere review of medications reveals no problems with compliance or side effects. HYPERTENSION: The patient has a history of persistent benign hypertension of moderate severity and long standing duration. Patients blood pressures have been in the 110/70 range. Other than as mentioned elsewhere review of medications reveals no problems with compliance or side effects. Current outpatient prescriptions Medication Sig ??? HUMALOG SC 2 units per carb ??? LANTUS SC 25 units per day The patient complains of right sided abdominal pain radiateding to the right flank with fever and nausea and vomiting of moderate severity for 3 days. The patient describes the symptoms as above. The patient describes modifying or exacerbating factors as:diabetic. The patient has attempted the following treatments:none. The patient denies any other aggravating or alleviating factors or associated symptoms. Other than as mentioned elsewhere review of medications reveals no problems with compliance orside effects. She denies other significant symptoms on ROS of the cardiovascular and Respiratory systems. Current medications reviewed and the patient denies any problems with compliance or side effects. Objective:Blood pressure 110/70, pulse 80, temperature 99.5, temperature source Temporal, height 5' 2 (1.58 m), weight 159 lbs 9.6 oz (72.4 kg), last menstrual period 08/27/2006. The patients general appearance is well nourished well developed without apparent distress. Patient exhibits stable mood, affect, judgment, insight and orientation during conversation. Eyes with normal lids, conjunctiva, pupils and irises. External ears nose are within normal limits. Normal lips teeth and gums. Neck is grossly normal without obvious thyroid abnormality. Skin is without cyanosis and of normal color. No focal neurological deficits noted on gross inspection. Chest wall normal to inspection and palpation. Good excursion bilaterally. Lungs clear to auscultation. Good air movement bilaterally without rales, wheezes, or rhonchi. Regular rate and rhythm. S1 and S2 normal, no murmurs, clicks, gallops or rubs. No edema or JVD. Abdomen:On inspection the abdomen is rounded with no incision scars. Auscultation reveals hypoactive bowel sounds. On palpation the abdomen is mildly gaurded with mild to moderate periumbilical, RLQ and LUQ tenderness and without rebound. Further palpation reveals no masses and no organomegaly. Assessment: DIABETES MELLITUS TYPE I UNCONTR UNCOMPL ABDOMINAL PAIN RUQ UNSPEC CONSTIPATION Plan: The patient will be started on compazine supp and milk of magnesia. The patient was instructedto follow up as needed or sooner if symptoms worsen or fail to improve as anticipated. documented in this encounter Plan of Treatment Upcoming Encounters Date Type Specialty Care Team Description 04/04/2022 Office Visit service operator Kaela Dubois APRN [facility]CIAL[facility] [address] [place], [place] [address] (Wo rk) 04/23/2022 Virtual Visit Endocrinology Lottie eCdillo , ERROL [address] [place] [address] (Wo rk) documented as of this encounter Procedures Procedure Name Priority Date/Time Associated Comments Diagnosis HC X-RAY ABDOMEN AP Routine 08/29/2006 9:08 AM Type I (juvenil e Results for this VIEW (KUB) CDT type) diabetes procedure are in mellitus without the results mention of section. complication, uncontrolled Abdominal pain, right upper quadrant HCL HCG URINE QUAL Routine 08/29/2006 8:48 AM Diabetes Mellitu s Results for this CDT Type I Uncontr procedure are in Uncompl the results Abdominal Pain Ruq section. HCL UA MICRO IF Routine 08/29/2006 8:48 AM Diabetes Mellitus R esults for this POSITIVE CDT Type I Uncontr procedure are in Uncompl the results Abdominal Pain Ruq section. CL AFF MICRO Routine 08/29/2006 8:48 AM Results f or this EXAM-URINE CDT procedure are i n the results section. HCL LDL-DIRECT Routine 08/29/2006 8:46 AM Diabetes Mellitus Re sults for this CDT Type I Uncontr procedure are in Uncompl the results Abdominal Pain Ruq section. CL AFF CBC WITH Routine 08/29/2006 8:46 AM Diabetes Mellitus R esults for this PLATELETS, DIFF CDT Type I Uncontr procedure are in Uncompl the results Abdominal Pain Ruq section. HCL COMPREHENSIVE Routine 08/29/2006 8:46 AM Diabetes Mellitus Results for this METABOLIC PANEL CDT Type I Uncontr procedure are in Uncompl the results Abdominal Pain Ruq section. HCL GLYCATED Routine 08/29/2006 8:46 AM Diabetes Mellitus Resu lts for this HEMOGLOBIN CDT Type I Uncontr procedure are in Uncompl the results Abdominal Pain Ruq section. documented in this encounter Results X-RAY ABDOMEN 1 VW (08/29/2006 9:08 AM CDT) Anatomical Region Laterality Modality Other Specimen (Source) Anatomical Collection Method Collection Time Re ceived Time Location / / Volume Laterality 08/29/2006 9:08 AM CDT Impressions 08/31/2006 11:01 AM CDT KUB: ? FINDINGS: Soft tissue calcification is n ot identified. Neither is a mass. There is abundant fecal material t hroughout the colon. Neither the colon or small bowel appears to be d ilated. ? Faisal Nolen M.D. ?? Real Herman MD GENERAL IMAGING (ABNORMAL) MICRO EXAM-URINE (08/29/2006 8:48 AM CDT) athologist Signature WBC Urine 5-10 (A) 0 - 2 /HPF [facility] RBC Urine 2-5 (A) 0 - 2 /HPF [facility] Squamous EPI Few FEW /LPF [facility] Specimen Anatomical Collection Method Collection Time Receive d Time (Source) Location / / Volume Laterality 08/29/2006 8:48 AM 7 8:50 CDT AM CDT Real Herman MD LABORATORY Performing Organization Address City/State/ZIP Code Phon e Number [facility] [address] HCG QUAL URINE (08/29/2006 8:48 AM CDT) athologist Signature HCG Qual Urine Negative NEG [facility] Specimen Anatomical Collection Method Collection Time Receive d Time (Source) Location / / Volume Laterality 08/29/2006 8:48 AM 7 8:50 CDT AM CDT Real Herman MD LABORATORY Performing Organization Address City/State/ZIP Code Phon e Number [facility] [address] (ABNORMAL) UA MICRO IF POSITIVE (08/29/2006 8:48 AM CDT) [facility] gist Method Time Signature Color Urine Straw [facility] Appearance Urine Clear [facility] Glucose Urine 500 (A) NEG mg/dL [facility] Bilirubin Urine Negative NEG [facility] Ketones Urine >=80 (A) NEG mg/dL [facility] Specific [place] 1.025 1.003 - [facility] Urine 1.035 [facility] Blood Urine Small (A) NEG [facility] pH Urine 6.0 5.0 - 7.0 [facility] pH [facility] Protein Albumin Trace (A) NEG mg/dL [facility] Urine [facility] Urobilinogen 0.2 0.2 - 1.0 [facility] Urine EU/dL [facility] Nitrite Urine Negative NEG [facility] Leukocyte Negative NEG [facility] Esterase Urine [facility] Source Midstream [facility] Urine [facility] Specimen Anatomical Collection Method Collection Time Receive d Time (Source) Location / / Volume Laterality 08/29/2006 8:48 AM 7 8:50 CDT AM CDT Real Herman MD LABORATORY Performing Organization Address City/State/ZIP Code Phon e Number [facility] [address] (ABNORMAL) CBC WITH PLATELETS, DIFF (08/29/2006 8:46 AM CDT) [facility] gist Method Time Signature WBC 10.5 4.0 - [facility] 11.0 [facility] 10e9/L RBC Count 4.11 3.8 - 5.2 [facility] 10e12/L [facility] Hemoglobin 12.2 11.7 - [facility] 15.7 g/dL [facility] Hematocrit 35.8 35.0 - [facility] 47.0 % [facility] MCV 87 78 - 100 [facility] fl [facility] MCH 29.8 26.5 - [facility] 33.0 pg [facility] MCHC 34.2 31.5 - [facility] 36.5 g/dL [facility] RDW 14.8 10.0 - [facility] 15.0 % [facility] Platelet Count 249 150 - 450 [facility] 10e9/L [facility] Diff Method Automated [facility] Method [facility] % Neutrophils 74 40 - 75 % [facility] % Lymphocytes 13 (L) 20 - 48 % [facility] % Monocytes 12 0 - 12 % [facility] % Eosinophils 0 0 - 6 % [facility] % Basophils 1 0 - 2 % [facility] Absolute 7.8 1.6 - 8.3 [facility] Neutrophil 10e9/L [facility] Absolute 1.3 0.8 - 5.3 [facility] Lymphocytes 10e9/L [facility] Absolute 1.2 0.0 - 1.3 [facility] Monocytes 10e9/L [facility] Absolute 0.0 0.0 - 0.7 [facility] Eosinophils 10e9/L [facility] Absolute 0.1 0.0 - 0.2 [facility] Basophils 10e9/L [facility] Specimen Anatomical Collection Method Collection Time Receive d Time (Source) Location / / Volume Laterality 08/29/2006 8:46 AM 7 8:48 CDT AM CDT Real Herman MD LABORATORY Performing Organization Address City/[facility]/ZIP Code Phon e Number [facility] [address] LDLC-DIRECT (08/29/2006 8:46 AM CDT) P athologist Signature LDL Cholesterol 50 0 - [facility] Direct mg/dL [facility] Comment: Optimal: ? <100 mg/dL Near Optimal: ? 100-129 mg/dL Borderline High: ??130-159 mg/dL High: ? 160-189 mg/dL Very high: ??greater than or equal to 1 90 mg/dL Cannot estimate LDL when triglyceride e xceeds 400 mg/dL Specimen Anatomical Collection Method Collection Time Receive d Time (Source) Location / / Volume Laterality 08/29/2006 8:46 AM 7 8:48 CDT AM CDT Real Herman MD LABORATORY Performing Organization Address City/State/ZIP Code Phon e Number [facility] [address] (ABNORMAL) A.M.A. COMPREHENSIVE MET.PANEL (08/29/2006 8:46 AM CDT) Analysis Performed At Patho logist Time Signature Sodium 133 133 - 144 [facility] mmol/L [facility] Potassium 4.7 3.4 - 5.3 [facility] mmol/L [facility] Chloride 100 94 - 109 [facility] mmol/L [facility] Carbon Dioxide 18 (L) 20 - 32 [facility] mmol/L [facility] Anion Gap 15 6 - 17 [facility] mmol/L [facility] Glucose 337 (H) 60 - 99 [facility] mg/dL [facility] Urea Nitrogen 9 5 - 24 [facility] mg/dL [facility] Creatinine 0.74 0.60 - [facility] 1.30 mg/dL [facility] GFR Estimate >90 >60 [facility] mL/min/1.7 [facility] m2 GFR Estimate If >90 >60 [facility] Black mL/min/1.7 [facility] m2 Calcium 8.9 8.5 - 10.4 [facility] mg/dL [facility] Bilirubin Total 0.8 0.2 - 1.3 [facility] mg/dL [facility] Albumin 4.0 3.3 - 4.6 [facility] g/dL [facility] Protein Total 7.5 6.0 - 8.2 [facility] g/dL [facility] Alkaline 117 40 - 150 [facility] Phosphatase U/L [facility] ALT 17 0 - 50 U/L [facility] AST 14 0 - 45 U/L [facility] Specimen Anatomical Collection Method Collection Time Receive d Time (Source) Location / / Volume Laterality 08/29/2006 8:46 AM 7 8:48 CDT AM CDT Real Herman MD LABORATORY Performing Organization Address City/State/ZIP Code Phon e Number [facility] [address] (ABNORMAL) HEMOGLOBIN A1C (08/29/2006 8:46 AM CDT) [facility] Time Signature Hemoglobin A1C 11.9 (H) 4.3 - 6.0 [facility] % [facility] Specimen Anatomical Collection Method Collection Time Receive d Time (Source) Location / / Volume Laterality 08/29/2006 8:46 AM 7 8:48 CDT AM CDT Real Herman MD LABORATORY Performing Organization Address City/State/ZIP Code Phon e Number [facility] [address] documented in this encounter Visit Diagnoses Diagnosis Type I (juvenile type) diabetes mellitus without mention of complication, uncontrolled - Primary Abdominal pain, right upper quadrant Unspecified constipation documented in this encounter Care Teams Foundry Operator Relationship Specialty Start Date End Date Real Herman MD PCP - General 08/29/06 07/21/12 documented as of this encounter
[2022-02-19] MEDS: IPRAT-ALBUT 0.5-2.5 MG/3 ML NEB 1 NEB IH (14:49)
[2022-02-19 15:00] LABS: Basophils Percent Auto 0.5 % (0.0-3.0); Eosinophils Percent Auto 0.8 % (0.0-7.0); Hematocrit 38.9 % (33.0-51.0); Immature Granulocytes Pct Auto 0.3 %; Lymphocytes Percent Auto 23.4 % (20-44); Mean Corpuscular HGB Conc 33 gm/dL (32-36); Mean Corpuscular Hemoglobin 29 pg (26-34); Mean Corpuscular Volume 87 fL (80-100); Monocytes Percent Auto 15.4 % (0.0-11.0); Neutrophils Percent Auto 59.6 % (42.0-72.0); Platelet Count* 192 K/uL (140-440); RDW Coefficient of Variation % 12.4 % (11.5-15.5); Red Blood Count 4.45 m/uL (4.00-5.20); White Blood Count* 3.97 K/uL (4.50-11.00)
[2022-02-19 15:01] LABS: Slide Review Reflex No
[2022-02-19 15:21] LABS: Chloride* 105 mmol/L (96-114); Potassium* 3.9 mmol/L (3.6-5.1); Sodium* 137 mmol/L (135-149)
[2022-02-19 15:24] LABS: Blood Urea Nitrogen* 13 mg/dL (5-24); Carbon Dioxide* 24 mmol/L (20-32); Creatinine* 0.8 mg/dL (0.5-1.5); Est. Creatinine Clearance* 73.19; Estimated Glomerular Filt Rate 95 ml/min; Glucose* 282 mg/dL (60-115)
[2022-02-19 15:25] LABS: Calcium* 8.5 mg/dL (8.4-10.6)
[2022-02-19 15:27] LABS: D Dimer Quantitative* < 0.27 ug/ml (0.00-0.50)
[2022-02-19 15:34] LABS: NT Pro B Type NatriureticPept* 93 PG/mL (0-125)
[2022-02-19 15:41] LABS: PCR FLU A POSITIVE PCR FLU A (Negative); PCR FLU B Negative PCR FLU B (Negative); PCR RSV Negative PCR RSV (Negative)
[2022-02-19 15:42] LABS: SARS PCR* Negative SARS-CoV-2 (Negative)
== END 2022-02-19 16:31 | disposition home or self-care (01) ==
PROVIDERS: Emergency Provider Family Medicine
DX: J10.1 Influenza due to other identified influenza virus with other respiratory manifestations (principal); J98.01 Acute bronchospasm; B34.9 Viral infection, unspecified
CPT/HCPCS: 36415; 71046; 80048; 83880; 85025; 85379; 87502; 87634; 87635; 93005; 94640; 99284